=== PATIENT | female | born 1980 | race Two or more races ===

== ENCOUNTER 2021-06-29 21:22 | Emergency (ER) | payer MEDICAID, SELFPAY ==
--- NOTE | ~2021-06-29 | XR_ITS ---
EXAMINATION: XR CHEST CLINICAL INFORMATION: Shortness of breath. COMPARISON: 03/13/2014 chest radiographs. TECHNIQUE: Frontal view of the chest was obtained. FINDINGS: Patchy and linear opacities are seen predominantly in the mid and lower lung chand. The heart and mediastinal structures are unremarkable. XR/XR chest 1V IMPRESSION: Patchy opacities bilaterally suggest an infectious/inflammatory process.
[2021-06-29 21:59] VITALS: BP 122/78; PULSE 102; RESP 16; TEMP 36.1; O2SAT 94; BMI 27.4
[2021-06-29 23:02] LABS: MANUAL DIFF FLAG NO
[2021-06-29 23:03] LABS: Basophils Percent Auto 0.2 % (0-2); Hematocrit 42.2 % (37-47); Imm Gran Abs Auto 0.02 X10*3/uL (0.00-0.03); Imm Gran Pct Auto 0.3 % (0.0-0.4); Lymphocytes Absolute Auto 0.7 X10*3/uL (1.2-4.9); Lymphocytes Percent Auto 11.3 % (20-40); Mean Corpuscular HGB Conc 30.8 g/dl (31.0-35.0); Mean Corpuscular Hemoglobin 23.5 pg (27.0-33.0); Mean Corpuscular Volume 76.3 fL (80-98); Mean Platelet Volume 9.8 fL (9.4-12.3); Monocytes Absolute Auto 0.3 X10*3/uL (0.1-1.2); Monocytes Percent Auto 5.2 % (2-11); Neutrophils Absolute Auto 5.1 X10*3/uL (2.0-8.3); Platelet Count 202 X10*3/uL (160-400); Red Blood Count 5.53 X10*6/uL (4.20-5.50); Red Cell Distribution Width 21.9 % (11.0-16.0); White Blood Count 6.1 X10*3/uL (4.8-10.8)
[2021-06-29 23:22] LABS: Anion Gap 16 (12-20); B Type Natriuretic Peptide < 10 pg/mL (<100); Blood Urea Nitrogen 12 mg/dL (9-16); Calcium 8.4 mg/dL (8.4-10.2); Carbon Dioxide 24 mmol/L (22-29); Chloride 98 mmol/L (96-108); Creatinine Clr Calc Pharmacy 91.5; Estimated Glomerular Filt Rate > 60; Glucose Random 187 mg/dL (60-115); Potassium 3.9 mmol/L (3.3-5.1); Sodium 134 mmol/L (135-145); Troponin-I High Sensitivity < 3.5 ng/L (<3.5-17.0)
== END 2021-06-29 23:36 ==
DX: U07.1 COVID-19 (principal); R53.1 Weakness; R06.02 Shortness of breath; Z79.899 Other long term (current) drug therapy
CPT/HCPCS: 36415; 71045; 80048; 83880; 84484; 85025; 99282; 99283

== ENCOUNTER 2021-06-30 17:28 | Inpatient (IN) | payer MEDICAID, OTHER, SELFPAY ==
--- NOTE | ~2021-06-30 | XR_ITS ---
EXAMINATION: XR CHEST CLINICAL INFORMATION: Worsening oxygenation. Covid infection. COMPARISON: Previous chest x-rays most recent 07/17/2021 TECHNIQUE: Frontal view of the chest was obtained. FINDINGS: The cardiac and mediastinal contours are stable. There is an endotracheal tube with tip 4.2 cm above the hany. There is a right jugular line with tip projecting over the SVC. There is a nasogastric tube that projects over the stomach. There is bilateral diffuse fine airspace disease suggestive of pneumonitis. This does not appear appreciably changed from most recent exam 07/17/2021. There is no pleural effusion or pneumothorax. Bony structures are unremarkable. XR/XR chest 1V IMPRESSION: Satisfactory position of support line and tubes. Diffuse fine bilateral airspace disease suggestive of pneumonitis. Similar to
--- NOTE | ~2021-06-30 | XR_ITS ---
EXAMINATION: XR CHEST CLINICAL INFORMATION: Covid. Hypoxemia. COMPARISON: 07/13/2021 TECHNIQUE: Frontal view of the chest was obtained. FINDINGS: Cardiac leads overlie the chest. Lung volumes are low. Hazy opacity throughout both lungs. No significant pleural effusion. No pneumothorax. The cardiomediastinal silhouette is unchanged. XR/XR chest 1V IMPRESSION: Similar appearance of hazy opacity throughout both lungs.
--- NOTE | ~2021-06-30 | XR_ITS ---
EXAMINATION: XR CHEST CLINICAL INFORMATION: Dyspnea. COMPARISON: Chest 07/06/2021 TECHNIQUE: Frontal view of the chest was obtained. FINDINGS: The lungs are hypoexpanded with bilateral patchy airspace opacities similar to previous study. No pneumothorax or pleural effusion. The heart size and pulmonary vascularity is normal. No gross bony abnormality seen. XR/XR chest 1V IMPRESSION: Bilateral airspace opacity/infiltrates, stable. Lungs are hypoexpanded.
--- NOTE | ~2021-06-30 | CT_ITS ---
EXAMINATION: CT ANGIOGRAM OF THE CHEST WITH AND WITHOUT CONTRAST (CT PULMONARY ANGIOGRAM FOR PE) CLINICAL INFORMATION: Reason for Exam dyspnea, tachycardia COMPARISON: 06/30/2021 TECHNIQUE: Prior to contrast administration, noncontrast localization images were obtained. Subsequently, multidetector volumetric imaging was performed from the thoracic inlet to below the diaphragms following the administration of 80 mL Omnipaque 350 intravenous contrast. No contrast reaction reported Sagittal, coronal, and MIP oblique sagittal reformatted images were obtained on the CT workstation, uploaded to PACS, and reviewed. This CT examination was performed using dose optimization techniques as appropriate, variously including the following: *Automated exposure control *Adjustment of mA and/or kV according to patient size (this includes techniques or standardized protocols for targeted exams where dose is matched to indication/reason for exam; i.e. extremities or head) *Use of iterative reconstruction technique Total exam dose-length product 161 mGy-cm FINDINGS: QUALITY OF STUDY/CONTRAST BOLUS: Satisfactory. PULMONARY ARTERIES: No central or segmental pulmonary emboli. THORACIC AORTA: No aneurysm or dissection. LUNG: Worsening bilateral patchy and geographic groundglass opacities, with increasing coalescence within the dependent lower lobes bilaterally. PLEURA: No pleural effusion or pneumothorax. MEDIASTINUM: Mild cardiomegaly. No pericardial effusion. No evidence of septal bowing or right heart strain. No reflux of contrast into the hepatic veins to suggest elevated right heart pressures. New pneumomediastinum CHEST WALL/AXILLA: No axillary or internal mammary lymphadenopathy. Bilateral breast masses redemonstrated measuring 2.3 cm left 0.6 cm in the right, both of which appear to contain biopsy clips. OSSEOUS STRUCTURES: No acute or suspicious osseous abnormality. UPPER ABDOMEN: Hepatic steatosis. CT/CT angio chest PE protocol IMPRESSION: * No pulmonary embolism. * Worsening bilateral airspace disease compatible with COVID pneumonitis with increasingly coalescent opacity within the dependent lower lobes bilaterally. * New moderate pneumomediastinum. * Hepatic steatosis. VTE: negative This critical result was discussed with Dr Smith at 07/08/2021 4:52 PM and it was ascertained that the content and urgency of the report was understood at the time of direct communication.
--- NOTE | ~2021-06-30 | XR_ITS ---
EXAMINATION: XR CHEST CLINICAL INFORMATION: Dyspnea COMPARISON: July 25, 2021 and July 20, 2021 TECHNIQUE: AP portable view of the chest was obtained. FINDINGS: There is an increase in diffuse interstitial lung disease seen bilaterally which may be on basis of infectious/inflammatory process or pulmonary edema of cardiogenic or noncardiogenic etiology. No pneumothorax identified. No significant pleural effusion. Heart normal size. Patient has been extubated since previous study and enteric catheter removed. XR/XR chest 1V IMPRESSION: Worsening diffuse interstitial lung disease which may be infectious/inflammatory in nature or related to pulmonary edema of cardiogenic or noncardiogenic etiology.
--- NOTE | ~2021-06-30 | CT_ITS ---
EXAMINATION: CT ANGIOGRAM OF THE CHEST WITH AND WITHOUT CONTRAST (CT PULMONARY ANGIOGRAM FOR PE) CLINICAL INFORMATION: Reason for Exam pleuritic chest pain and COVID positive COMPARISON: Chest x-ray 06/30/2021 TECHNIQUE: Prior to contrast administration, noncontrast localization images were obtained. Subsequently, multidetector volumetric imaging was performed from the thoracic inlet to below the diaphragms following the administration of 65 mL Omnipaque 350 intravenous contrast. No contrast reaction reported Sagittal, coronal, and MIP oblique sagittal reformatted images were obtained on the CT workstation, uploaded to PACS, and reviewed. This CT examination was performed using dose optimization techniques as appropriate, variously including the following: *Automated exposure control *Adjustment of mA and/or kV according to patient size (this includes techniques or standardized protocols for targeted exams where dose is matched to indication/reason for exam; i.e. extremities or head) *Use of iterative reconstruction technique Total exam dose-length product 271 mGy-cm FINDINGS: QUALITY OF STUDY/CONTRAST BOLUS: Suboptimal primarily due to respiratory motion artifact. PULMONARY ARTERIES: No central pulmonary embolus identified. Inadequate assessment of the segmental and subsegmental vasculature due to patient motion artifact, and therefore emboli at these levels cannot be entirely excluded. THORACIC AORTA: No aneurysm or dissection. LUNG: There are extensive regions of predominantly groundglass consolidation bilaterally, in keeping with history of patient's Covid positive status. PLEURA: No pleural effusion or pneumothorax. MEDIASTINUM: The visualized thyroid gland is unremarkable. There are subcentimeter mediastinal lymph nodes within the range of normal variation. Cardiac size is within normal limits; no pericardial effusion. No evidence of septal bowing or right heart strain. CHEST WALL/AXILLA: Bilateral breast masses noted, measuring approximately 2.3 cm on the left and 1.6 cm on the right. OSSEOUS STRUCTURES: No acute or suspicious osseous abnormality. UPPER ABDOMEN: Patient is status post cholecystectomy. No reflux of contrast into the hepatic veins to suggest elevated right heart pressures. CT/CT angio chest PE protocol IMPRESSION: 1. No central pulmonary embolus identified. Incomplete assessment of the distal vessels due to respiratory motion artifact, and therefore distal emboli cannot be entirely excluded. 2. Extensive bilateral groundglass opacities consistent with Covid pneumonia. 3. Bilateral breast masses, for which correlation with recent or follow-up breast imaging is recommended. VTE: negative
--- NOTE | ~2021-06-30 | XR_ITS ---
EXAMINATION: XR CHEST CLINICAL INFORMATION: Covid. Pneumonia. COMPARISON: 07/16/2021 TECHNIQUE: Frontal view of the chest was obtained. FINDINGS: Endotracheal tube terminates 3.5 cm above the hany. Enteric tube extends into the stomach. Cardiac leads overlie the chest. Lung volumes are low. Increased hazy opacities throughout both lungs. No pleural effusion or pneumothorax. The cardiomediastinal silhouette is unchanged. XR/XR chest 1V IMPRESSION: Endotracheal tube terminates 3.5 cm above the hany. Worsening bilateral opacities.
--- NOTE | ~2021-06-30 | XR_ITS ---
EXAMINATION: XR CHEST CLINICAL INFORMATION: Shortness of breath COMPARISON: Chest x-ray June 29, 2021 TECHNIQUE: Frontal portable view of the chest was obtained. 1840 hours FINDINGS: Multifocal bilateral airspace opacities are persistent and unchanged since chest x-ray June 29, 2021. Findings suggest atypical pneumonia such as Covid positive pneumonia. Clinically correlate. No pleural effusion or pneumothorax. Heart size is normal. Cardiac and mediastinal contours are normal. XR/XR chest 1V IMPRESSION: Multifocal bilateral airspace disease similar prior chest x-ray June 29, 2021. Imaging features can be seen with COVID-19 pneumonia. Although these features are nonspecific and can be occur with a variety of infectious and noninfectious processes.
--- NOTE | ~2021-06-30 | XR_ITS ---
EXAMINATION: XR CHEST CLINICAL INFORMATION: Line placement and endotracheal tube placement COMPARISON: 07/15/2021 TECHNIQUE: Frontal view of the chest was obtained. FINDINGS: Endotracheal tube terminates at the level of the hany. Right internal jugular central venous catheter terminates over the right atrium, approximately 3 cm beyond the cavoatrial junction. Cardiac leads overlie the chest. Low lung volumes. Hazy appearance throughout both lungs, similar to prior. No pleural effusion. No pneumothorax. The cardiomediastinal silhouette is within normal limits. XR/XR chest 1V IMPRESSION: Endotracheal tube terminates at the level of the hany. Recommend retraction. Right internal jugular central venous catheter terminates over the right atrium. This can also be retracted. Persistent hazy opacity throughout both lungs, similar to prior. This critical result was discussed with Matt Lombardi NP by telephone at 07/15/2021 9:56 PM and it was ascertained that the content and urgency of the report was understood at the time of direct communication.
--- NOTE | ~2021-06-30 | XR_ITS ---
EXAMINATION: CR CHEST CLINICAL INFORMATION: Hypoxia. COMPARISON: Chest x-ray dated 07/29/2021. TECHNIQUE: Frontal view of the chest was obtained. FINDINGS: Multiple EKG leads overlie the chest. Endotracheal tube is 3.3 cm above the hany. Enteric tube extends into the abdomen with tip projected over the expected location of the gastric antrum. Left jugular central venous line is in the superior right atrium. Cardiomediastinal silhouette is within normal limits in size. Low lung volumes are seen with some diffuse reticular opacities in the lungs, right greater than left, with relative sparing of the left lung apex. There may be associated trace right pleural effusion. No pneumothorax is seen. S-shaped thoracolumbar scoliosis noted. Right upper quadrant ed from prior cholecystectomy seen. XR/XR chest 1V IMPRESSION: 1. No significant change in positioning of lines and tubes. 2. Persistent diffuse bilateral opacities, slightly more pronounced on the right side than the left. There may be an associated trace right pleural effusion.
--- NOTE | ~2021-06-30 | XR_ITS ---
EXAMINATION: XR CHEST CLINICAL INFORMATION: Pneumomediastinum. COMPARISON: Chest CTA and chest radiograph both dated 07/08/2021. TECHNIQUE: Frontal view of the chest was obtained. FINDINGS: Persistent diffuse airspace opacities are again seen bilaterally with more uniform appearance. There has been mild interval decrease in pneumonia mediastinum. The heart and mediastinal structures are unremarkable. XR/XR chest 1V IMPRESSION: 1. Persistent diffuse airspace opacities with more uniform appearance. 2. Mild interval decrease in pneumomediastinum.
--- NOTE | ~2021-06-30 | XR_ITS ---
EXAMINATION: XR CHEST CLINICAL INFORMATION: Increase shortness of breath COMPARISON: 06/30/2021 TECHNIQUE: Frontal view of the chest was obtained. FINDINGS: Cardiac leads overlie the chest. Lung volumes are low. Patchy bilateral airspace opacities are again noted, appearing increased from prior radiograph. No pneumothorax or pleural effusion. The cardiomediastinal silhouette is within normal limits. XR/XR chest 1V IMPRESSION: Increased bilateral airspace opacities. Commonly reported imaging features of (COVID-19 or viral) pneumonia are present. Other processes such as influenza pneumonia and organizing pneumonia, as can be seen with drug toxicity and connective tissue disease, can cause a similar imaging pattern.
--- NOTE | ~2021-06-30 | XR_ITS ---
EXAMINATION: XR CHEST CLINICAL INFORMATION: Status post intubation COMPARISON: Earlier on same day and July 25, 2021 TECHNIQUE: AP portable view of the chest was obtained. FINDINGS: Since previous study a right sided central venous catheter is seen to have been placed with tip in the superior right atrium. Lung apices are not included on image but no definite pneumothorax is appreciated. Endotracheal tube has been placed with tip approximately 2 cm above the hany. Enteric catheter has been placed with its tip overlying the region of the gastric antrum. There is again noted to be diffuse groundglass opacity about both lungs without significant change. There appears be either calcific tendinitis or bone island within the humeral head on the left. Heart normal size. XR/XR chest 1V IMPRESSION: No significant change in diffuse bilateral disease. Interval placement of endotracheal tube, enteric tube, and central venous catheter as described.
--- NOTE | ~2021-06-30 | CT_ITS ---
EXAMINATION: CT ANGIOGRAM OF THE CHEST WITH AND WITHOUT CONTRAST (CT PULMONARY ANGIOGRAM FOR PE) CLINICAL INFORMATION: Tachycardia COMPARISON: 07/31/[address] 07/08/2021 TECHNIQUE: Prior to contrast administration, noncontrast localization images were obtained. Subsequently, multidetector volumetric imaging was performed from the thoracic inlet to below the diaphragms following the administration of 65 mL Omnipaque 350 intravenous contrast. No contrast reaction reported Sagittal, coronal, and MIP oblique sagittal reformatted images were obtained on the CT workstation, uploaded to PACS, and reviewed. This CT examination was performed using dose optimization techniques as appropriate, variously including the following: *Automated exposure control *Adjustment of mA and/or kV according to patient size (this includes techniques or standardized protocols for targeted exams where dose is matched to indication/reason for exam; i.e. extremities or head) *Use of iterative reconstruction technique Total exam dose-length product 107 mGy-cm FINDINGS: QUALITY OF STUDY/CONTRAST BOLUS: Satisfactory. PULMONARY ARTERIES: No central or segmental pulmonary emboli. THORACIC AORTA: No aneurysm or dissection. LUNG: The central airways are patent. Diffuse groundglass and consolidative opacification throughout both lungs with patchy appearance. This includes area of cystic change in the right upper lobe along the fissure centered in an area of consolidation. When compared to 07/08/2021, this appearance has evolved. PLEURA: No pleural effusion or pneumothorax. MEDIASTINUM: Normal heart size. Left internal jugular central venous catheter terminates near the cavoatrial junction. No pericardial effusion. No hilar or mediastinal lymphadenopathy. No evidence of septal bowing or right heart strain. CHEST WALL/AXILLA: No axillary or internal mammary lymphadenopathy. OSSEOUS STRUCTURES: No acute or suspicious osseous abnormality. UPPER ABDOMEN: Unremarkable. No reflux of contrast into the hepatic veins to suggest elevated right heart pressures. CT/CT angio chest PE protocol IMPRESSION: 1. No pulmonary embolism. 2. Evolution of the abnormal appearance of the lungs. There are now increased areas of consolidation, some with central cystic change. Persistent diffuse patchy groundglass opacification. VTE: negative
--- NOTE | ~2021-06-30 | XR_ITS ---
EXAMINATION: XR CHEST CLINICAL INFORMATION: Hypoxia COMPARISON: 07/10/2021 TECHNIQUE: Frontal view of the chest was obtained. FINDINGS: Cardiac leads overlie the chest. Lung volumes are low. Hazy opacity throughout both lungs is similar to prior. Small pleural effusions. No pneumothorax. Cardiomediastinal silhouette is unchanged. XR/XR chest 1V IMPRESSION: No significant change from prior. Small pleural effusions. Diffuse bilateral airspace opacities.
--- NOTE | ~2021-06-30 | XR_ITS ---
EXAMINATION: XR CHEST CLINICAL INFORMATION: Covid. Hypoxia. COMPARISON: 07/15/2021 TECHNIQUE: Frontal view of the chest was obtained. FINDINGS: Endotracheal tube terminates 4.5 cm above the hany. Enteric tube extends into the stomach. Right internal jugular central venous catheter terminates over the right atrium. The lungs are well expanded. Hazy opacity again seen throughout both lungs, similar to previous. No pleural effusion or pneumothorax. The cardiomediastinal silhouette is within normal limits. Right upper quadrant surgical clips noted. XR/XR chest 1V IMPRESSION: Endotracheal tube terminating 4.5 cm above the hany. Similar appearance of the lungs with diffuse bilateral opacities.
--- NOTE | ~2021-06-30 | XR_ITS ---
EXAMINATION: XR CHEST CLINICAL INFORMATION: Staph pneumonia. COMPARISON: Chest 07/20/2021 TECHNIQUE: Frontal view of the chest was obtained. FINDINGS: Position of right jugular central line is in mid SVC. The endotracheal tube tip is 4.5 cm above the hany. Enteric tube is in the stomach. The lungs are hypoexpanded with bilateral fine interstitial prominence likely pneumonitis. No consolidation, effusion or pneumothorax seen. The heart size and pulmonary vascularity is normal. No gross bony abnormality seen. XR/XR chest 1V IMPRESSION: Hypoexpanded lungs with bilateral fine interstitial prominence similar to previous study. Support lines and catheters are stable and unchanged to 07/20/2021.
[2021-06-30 18:31] VITALS: BP 108/74; PULSE 118; RESP 36; TEMP 36.7; O2SAT 93; BMI 28.3
[2021-06-30 20:57] VITALS: BP 114/82; PULSE 117; RESP 22; TEMP 37.6; O2SAT 96
--- NOTE | 2021-06-30 21:06 | ED_ITS ---
HPI - SOB/Dyspnea General Chief Complaint: Dyspnea Stated Complaint: Difficulty breathing/Covid + Time Seen by Provider: 06/30/21 20:43 Source: patient Mode of arrival: ambulatory Limitations: no limitations History of Present Illness HPI Narrative: Patient was here last night with COVID, she had nausea and vomiting. Patient is day 9 of her illness. Not eating not taking drinking liquids. MD elicited complaint: shortness of breath and cough Onset (ago): day(s) Context: recent illness Severity: moderate Associated symptoms: chest pain, pain with inspiration and fever Related Data Allergies Allergy/AdvReac Type Severity Reaction Status Date / Time acetaminophen [Percocet] AdvReac Unknown vomiting Verified 06/30/21 18:31 oxycodone [Percocet] AdvReac Unknown vomiting Verified 06/30/21 18:31 Review of Systems Constitutional: Constitutional: Reports no additional constitutional complaints Eyes: Eyes: Reports no additional eye complaints ENT: Denies dizziness Cardiovascular: Cardiovascular: Reports no additional cardiovascular complaints Respiratory: Respiratory: Reports as per HPI Gastrointestinal: Gastrointestinal: Reports no additional gastrointestinal complaints Genitourinary: Genitourinary: Reports no additional female genitourinary complaints Musculoskeletal: Musculoskeletal: Reports no additional musculoskeletal complaints Integumentary/Breasts: Skin/Breast: Denies rash Neurologic: Reports system reviewed and no additional complaints, except as documented, Denies dizziness and Denies Sensory deficit (Neuro) Psychiatric: Psychiatric: Denies anxiety PMF Past Medical History Surgical History H/O breast biopsy History of laparoscopic cholecystectomy History of nephrolithiasis Family History Family History (Updated 08/03/20 @ 10:17 by Nadja Verma [facility]) Father Diabetes Hypertension Mother Diabetes Hypertension Maternal Grandfather Throat cancer Brother High cholesterol Maternal Grandmother Hypertension Social History Social History Advance Directives: No Patient : No Physical Exam Vital Signs: Vital Signs: Last Vital Signs Temp 99.6 F 06/30/21 20:57 Pulse 113 H 06/30/21 23:50 Resp 16 06/30/21 23:50 BP 117/84 06/30/21 23:50 Pulse Ox 99 06/30/21 23:50 Body Mass Index 28.3 Const: Other: Patinet appearing uncomfortable moaning Nutritional Appearance: average body habitus Orientation/consciousness: oriented to person and patient oriented x3 Limitations: no limitations HENMT: Head: Yes normal to inspection Ears: external ears normal General nose exam: Normal external nose present Mouth: Normal oral and palatal mucosa present and oropharynx normal Throat: Yes posterior oropharynx normal Eyes: General: appearance normal, both eyes and all related structures Neck: Other: supple Neck: Yes normal visual inspection Chest: Chest palpation & inspection: normal inspection of the chest Resp: Auscultation: clear to auscultation bilaterally Cardio: Jugular venous distension: no JVD Rate: regular rate Rhythm: regular rhythm Heart sounds: S1 normal heart sound present and S2 normal heart sound present GI: Inspection: Yes normal to inspection Palpation (GI): Soft to palpation, nontender and No hepatosplenomegaly present Auscultation: normal bowel sounds : General: Yes no CVA tenderness Back/Spine/Pelvis: Back: no CVA tenderness Skin: General skin exam: no rashes or lesions noted Neuro: General: oriented to person and patient oriented x3 Cranial nerves: Yes CN's II-XII intact bilaterally Motor exam (neuro): 5/5 motor strength present throughout Sensory Exam: No Sensory deficit (Neuro) Extrem: General: Yes normal to inspection Psych: Appearance: grossly normal MDM - SOB/Dyspnea Lab Data Result diagrams: 06/30/21 22:03 06/30/21 22:03 Labs: Lab Results 06/30/21 06/30/21 06/30/21 Range/Units 22:03 22:03 22:03 WBC 5.6 (4.8-10.8) X10*3/uL RBC 5.67 H (4.20-5.50) X10*6/uL Hgb 13.4 (12.0-16.0) g/dl Hct 43.2 (37-47) % MCV 76.2 L (80-98) fL MCH 23.6 L (27.0-33.0) pg MCHC 31.0 (31.0-35.0) g/dl RDW 22.1 H (11.0-16.0) % Plt Count 190 (160-400) X10*3/uL MPV 9.8 (9.4-12.3) fL Immature Gran % (Auto) 0.4 (0.0-0.4) % Neut % (Auto) 83.0 H (45-73) % Lymph % (Auto) 11.1 L (20-40) % [place] % (Auto) 5.3 (2-11) % Eos % (Auto) 0.0 (0-4) % Baso % (Auto) 0.2 (0-2) % Lymph # (Auto) 0.6 L (1.2-4.9) X10*3/uL [place] # (Auto) 0.3 (0.1-1.2) X10*3/uL Eos # (Auto) 0.0 (0.0-0.4) X10*3/uL Baso # (Auto) 0.0 (0.0-0.2) X10*3/uL Abs Immat Gran (auto) 0.02 (0.00-0.03) X10*3/uL Absolute Neuts (auto) 4.7 (2.0-8.3) X10*3/uL Absolute Nucleated RBC 0.000 (0.0-0.012) X10*3/uL Nucleated RBC % (auto) 0.0 (0.0-0.2) /100WBC Sodium 135 (135-145) mmol/L Potassium 4.1 (3.3-5.1) mmol/L Chloride 100 (96-108) mmol/L Carbon Dioxide 23 (22-29) mmol/L Anion Gap 16 (12-20) BUN 14 (9-16) mg/dL Creatinine 0.84 (0.5-1.4) mg/dL Estim Creat Clear Calc 89.5 Estimated GFR > 60 Random Glucose 159 H (60-115) mg/dL Calcium 8.5 (8.4-10.2) mg/dL Troponin I High Sens < 3.5 (<3.5-17.0) ng/L Imaging Data Chest x-ray: Radiologist's impression: IMPRESSION: Multifocal bilateral airspace disease similar prior chest x-ray June 29, 2021. Imaging features can be seen with COVID-19 pneumonia. Although these features are nonspecific and can be occur with a variety of infectious and noninfectious processes. ? CT scan - chest: Radiologist's impression: IMPRESSION: 1.? No central pulmonary embolus identified. Incomplete assessment of the distal vessels due to respiratory motion artifact, and therefore distal emboli cannot be entirely excluded. 2.? Extensive bilateral groundglass opacities consistent with Covid pneumonia. 3.? Bilateral breast masses, for which correlation with recent or follow-up breast imaging is recommended. ? ECG Data Attestation: I personally reviewed and interpreted this ECG as follows: Interpretation: sinus tachycardia rate of 123, no st or twave changes Discharge Plan Discharge Clinical Impression: COVID-19, Hypoxia Patient Disposition: Admitted As Inpatient
--- NOTE | 2021-06-30 21:32 | ECG_ITS ---
Test Reason : SOB Blood Pressure : / mmHG Vent. Rate : 123 BPM Atrial Rate : 123 BPM P-R Int : 134 ms QRS Dur : 080 ms QT Int : 292 ms P-R-T Axes : 042 -18 -09 degrees QTc Int : 418 ms Sinus tachycardia Minimal voltage criteria for LVH, may be normal variant Nonspecific T wave abnormality Abnormal ECG No previous ECGs available Referred By: Epifanio Child Electronically Signed By:IVET BENITEZ
[2021-06-30 22:08] LABS: MANUAL DIFF FLAG NO
[2021-06-30 22:09] LABS: Basophils Percent Auto 0.2 % (0-2); Hematocrit 43.2 % (37-47); Hemoglobin 13.4 g/dl (12.0-16.0); Imm Gran Abs Auto 0.02 X10*3/uL (0.00-0.03); Imm Gran Pct Auto 0.4 % (0.0-0.4); Lymphocytes Absolute Auto 0.6 X10*3/uL (1.2-4.9); Lymphocytes Percent Auto 11.1 % (20-40); Mean Corpuscular Hemoglobin 23.6 pg (27.0-33.0); Mean Corpuscular Volume 76.2 fL (80-98); Mean Platelet Volume 9.8 fL (9.4-12.3); Monocytes Absolute Auto 0.3 X10*3/uL (0.1-1.2); Monocytes Percent Auto 5.3 % (2-11); Neutrophils Absolute Auto 4.7 X10*3/uL (2.0-8.3); Platelet Count 190 X10*3/uL (160-400); Red Blood Count 5.67 X10*6/uL (4.20-5.50); Red Cell Distribution Width 22.1 % (11.0-16.0); White Blood Count 5.6 X10*3/uL (4.8-10.8)
[2021-06-30] MEDS: 0.9 % Sodium Chloride 2,313.33 ML 2313.33 ML IV (22:10)
[2021-06-30 22:24] LABS: Anion Gap 16 (12-20); Blood Urea Nitrogen 14 mg/dL (9-16); Calcium 8.5 mg/dL (8.4-10.2); Carbon Dioxide 23 mmol/L (22-29); Chloride 100 mmol/L (96-108); Creatinine Clr Calc Pharmacy 89.5; Estimated Glomerular Filt Rate > 60; Glucose Random 159 mg/dL (60-115); Potassium 4.1 mmol/L (3.3-5.1); Sodium 135 mmol/L (135-145)
[2021-06-30 22:30] LABS: Troponin-I High Sensitivity < 3.5 ng/L (<3.5-17.0)
[2021-06-30 23:50] VITALS: BP 117/84; PULSE 113; RESP 16; O2SAT 99
[2021-06-30] MEDS: iohexoL 350 MG/ML 100 ML INFUS..BTL 65 ML IV (23:53)
[2021-07-01] VITALS (8 sets, daily range): BP systolic 99–116; BP diastolic 66–71; PULSE 73–99; RESP 26–44; TEMP 36.5–37.2; O2SAT 92–97
--- NOTE | 2021-07-01 00:44 | PC.NURSE ---
Addendum entered by Nicole Larson RN 07/01/21 00:54: MD Child notified Original Note: pt O2 sat decreased to 87% on RA while standing at bedside; after returning to bed, sat further decreased to 78% prior to replacing O2 at 6L. Returned to 95% on 6L NC
--- NOTE | 2021-07-01 01:07 | P.HPHOSP_ITS ---
History of Present Illness Date of Service: 07/01/21 Chief Complaint: Shortness of breath, cough 41-year-old female with no significant past medical history, on vaccinated against COVID-19 presents to the hospital with complaints of shortness of breath, cough, headache, loss of appetite, nausea vomiting for the past 1 week. Patient was diagnosed with COVID on 06/26 but her symptoms have persisted and worsened over the past few days. Patient's is at bedside who is helping with interpretation and reports that ever but in the family including the children have contracted COVID and they are all on vaccinated. Patient denies any chest pain, no abdominal pain, no urinary symptoms and no lower extremity edema. No numbness tingling or weakness. All other review of system negative except as mentioned On arrival to the ED her vitals are significant for temp of 98.0?, heart rate of 118, respiratory rate of 36, blood pressure of 108/74, satting 93% on room air but did drop to high 80s and now is on 6 L of oxygen on nasal cannula Labs are significant for WBC count of 5.6, otherwise unremarkable. Chest CT angiogram shows no central pulmonary embolus identified, incomplete assessment of the distal vessels due to respiratory motion artifact. Extensive bilateral ground-glass opacities consistent with COVID-19 pneumonia and bilateral breast masses Patient will be admitted for further management Review of Systems Review of Systems: Yes all other systems are reviewed and are negative [facility] Medical History (Updated 07/01/21 @ 06:37 by Ivan Villegas MD) Patient denies significant medical history Family History Father Diabetes Hypertension Mother Diabetes Hypertension Maternal Grandfather Throat cancer Brother High cholesterol Maternal Grandmother Hypertension Pertinent family history: No pertinent family history Surgical History H/O breast biopsy History of laparoscopic cholecystectomy History of nephrolithiasis Social History Advance Directives: No Patient : No Meds Allergies Allergy/AdvReac Type Severity Reaction Status Date / Time acetaminophen [Percocet] AdvReac Unknown vomiting Verified 06/30/21 18:31 oxycodone [Percocet] AdvReac Unknown vomiting Verified 06/30/21 18:31 Active Medications: Current Medications Pharmacy Consult (Consult Rx Perform Med Rec) 1 each MISCELLANE ONCE PRN PRN Reason: Consult order Physical Exam Vital Signs and Narrative: Vital Signs: Last Vital Signs Temp 99.6 F 06/30/21 20:57 Pulse 113 H 06/30/21 23:50 Resp 16 06/30/21 23:50 BP 117/84 06/30/21 23:50 Pulse Ox 99 06/30/21 23:50 Body Mass Index 28.3 Const: Other: Ill-appearing General: cooperative Orientation/consciousness: patient oriented x3 Eyes: General: appearance normal, both eyes and all related structures Pupils: Equal, round and reactive pupils present Chest: Other: Crackles bilaterally Resp: Effort & Inspection: normal respiratory effort Cardio: Rate: regular rate Rhythm: regular rhythm GI: Palpation (GI): Soft to palpation Auscultation: normal bowel sounds Skin: General skin exam: no rashes or lesions noted Neuro: General: patient oriented x3 Cranial nerves: Yes Equal, round and reactive pupils present Cognition (Neuro): normal cognition Extrem: General: Yes normal to inspection and Yes no pedal edema Results Labs CBC and Chem 7: 07/01/21 05:33 07/01/21 05:33 Labs: Laboratory Results - last 24 hr 06/30/21 06/30/21 06/30/21 22:03 22:03 22:03 MCV 76.2 L MCH 23.6 L MCHC 31.0 RDW 22.1 H Plt Count 190 MPV 9.8 Immature Gran % (Auto) 0.4 Neut % (Auto) 83.0 H Lymph % (Auto) 11.1 L [place] % (Auto) 5.3 Eos % (Auto) 0.0 Baso % (Auto) 0.2 Lymph # (Auto) 0.6 L [place] # (Auto) 0.3 Eos # (Auto) 0.0 Baso # (Auto) 0.0 Abs Immat Gran (auto) 0.02 Absolute Neuts (auto) 4.7 Absolute Nucleated RBC 0.000 Nucleated RBC % (auto) 0.0 Anion Gap 16 Estim Creat Clear Calc 89.5 Estimated GFR > 60 Random Glucose 159 H Calcium 8.5 Troponin I High Sens < 3.5 ECG Interpretation: Sinus tachycardia with nonspecific T-wave abnormality Imaging Radiologist's Impressions: Impressions Chest X-Ray 06/30/21 18:43 IMPRESSION: Multifocal bilateral airspace disease similar prior chest x-ray June 29, 2021. Imaging features can be seen with COVID-19 pneumonia. Although these features are nonspecific and can be occur with a variety of infectious and noninfectious processes. Chest CTA 06/30/21 21:33 IMPRESSION: 1. No central pulmonary embolus identified. Incomplete assessment of the distal vessels due to respiratory motion artifact, and therefore distal emboli cannot be entirely excluded. 2. Extensive bilateral groundglass opacities consistent with Covid pneumonia. 3. Bilateral breast masses, for which correlation with recent or follow-up breast imaging is recommended. VTE: negative Assessment and Plan (1) Pneumonia due to COVID-19 virus: Status: Acute (2) Acute respiratory failure with hypoxia: Status: Acute (3) Breast mass: Status: Acute 41-year-old female with no significant past medical history presents to the hospital with worsening symptoms of COVID-19 infection # COVID-19 pneumonia - has hypoxia, no leukocytosis, afebrile this time - who was diagnosed on 06/26 - will start on dexamethasone - O2 supplement - monitor respiratory status # acute hypoxic respiratory failure - secondary to COVID-19 pneumonia - O2 supplement - monitor # breast mass - a seen on CT scan of the chest - patient will need follow-up outpatient with her primary care for further evaluation and testing DVT prophylaxis: Heparin subQ Quality Stroke Does the patient have a stroke diagnosis?: No VTE Prior VTE?: No VTE Risk Level:: Medical - moderate - high VTE Device Contraindication: Treatment Not Indicated VTE Drug Contraindication: N/A - Med Ordered
[2021-07-01] MEDS: dexAMETHasone sod phosphate 4 MG/ML VIAL 6 MG IVPUSH ×2 (02:06→08:24)
--- NOTE | 2021-07-01 03:58 | PC.NURSE ---
report called to receiving RN; pt transported in stable condition w/ all belongings
[2021-07-01] MEDS: LORazepam 0.5 MG TABLET PO (04:00)
[2021-07-01 05:38] LABS: MANUAL DIFF FLAG NO
[2021-07-01 05:39] LABS: Hematocrit 36.1 % (37-47); Hemoglobin 10.9 g/dl (12.0-16.0); Imm Gran Abs Auto 0.01 X10*3/uL (0.00-0.03); Imm Gran Pct Auto 0.3 % (0.0-0.4); Lymphocytes Absolute Auto 0.3 X10*3/uL (1.2-4.9); Mean Corpuscular HGB Conc 30.2 g/dl (31.0-35.0); Mean Corpuscular Hemoglobin 23.4 pg (27.0-33.0); Mean Corpuscular Volume 77.5 fL (80-98); Mean Platelet Volume 10.3 fL (9.4-12.3); Monocytes Absolute Auto 0.1 X10*3/uL (0.1-1.2); Monocytes Percent Auto 3.1 % (2-11); Neutrophils Absolute Auto 3.5 X10*3/uL (2.0-8.3); Neutrophils Percent Auto 89.6 % (45-73); Platelet Count 154 X10*3/uL (160-400); Red Blood Count 4.66 X10*6/uL (4.20-5.50); Red Cell Distribution Width 21.7 % (11.0-16.0); White Blood Count 3.9 X10*3/uL (4.8-10.8)
[2021-07-01] MEDS: Acetaminophen 325 MG TABLET 650 MG PO (05:53)
[2021-07-01 05:57] LABS: Anion Gap 14 (12-20); Blood Urea Nitrogen 10 mg/dL (9-16); Calcium 7.6 mg/dL (8.4-10.2); Carbon Dioxide 21 mmol/L (22-29); Chloride 105 mmol/L (96-108); Estimated Glomerular Filt Rate > 60; Glucose Random 261 mg/dL (60-115); Potassium 4.5 mmol/L (3.3-5.1); Sodium 135 mmol/L (135-145)
--- NOTE | 2021-07-01 08:18 | PHA.MEDREC ---
Pharmacy Consult ? Medication Reconciliation Pharmacy has completed the medication reconciliation. Patient's Matteo reports patient only takes motrin and tylenol. Jyothi Nolasco, PharmD
[2021-07-01] MEDS: Enoxaparin Sodium 40 MG/0.4 ML SYRINGE SUBCUT (08:24)
[2021-07-01] MEDS: 0.9 % Sodium Chloride Flush 3 ML SYRINGE IVFLUSH ×3 (08:25→21:24)
--- NOTE | 2021-07-01 10:04 | MHC.CLN ---
PT WITH REPORTED POOR PO INTAKE X 1 WEEK RECOMMEND ADDING ENSURE BID TO INCREASE KCALS AND PROMOTE PO SUPPLEMENT TO PROVIDE 700KCALS, 40G PROTEIN MONITOR PO INTAKE CLOSELY
[2021-07-01] MEDS: Ascorbic Acid 500 MG TABLET PO (10:23)
[2021-07-01] MEDS: Famotidine 20 MG TABLET 40 MG PO ×2 (10:23→21:23)
[2021-07-01] MEDS: Zinc Sulfate 220 MG CAPSULE PO (10:23)
[2021-07-01] MEDS: methylPREDNISolone Sod Succ 125 MG/2 ML VIAL 80 MG IVPUSH ×2 (10:23→21:23)
--- NOTE | 2021-07-01 13:05 | MHC.CM.PN ---
Pt is C overflow with COVID: on nasal cannula: call placed to pts spouse, Omar for assistance with CM assessment: Pt resides with spouse and children aged 21 to 4 yrs. All of household is unvaccinated and COVID + but stable and recovering. 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 Her PCP was someone at [address] Pt has not sought medical care since her insurance terminated. Will refer pt to [facility] financial for assistance with insurance: asked Omar to inquire on adding pt to his policy since they are legally per him. Omar can transport home when pt is medically ready: expect pt to recover and return to home without service requirements. HCP copy requested from Omar
--- NOTE | 2021-07-01 16:49 | PM.EVENT ---
Event Note Date of Service: 07/01/21 Event Note: Chief Complaint: Shortness of breath, cough 41-year-old female with no significant past medical history, on vaccinated against COVID-19 presents to the hospital with complaints of shortness of breath, cough, headache, loss of appetite, nausea vomiting for the past 1 week.? Patient was diagnosed with COVID on 06/26 but her symptoms have persisted and worsened over the past few days.? Patient's is at bedside who is helping with interpretation and reports that ever but in the family including the children have contracted COVID and they are all on vaccinated. Patient denies any chest pain, no abdominal pain, no urinary symptoms and no lower extremity edema.? No numbness tingling or weakness.? All other review of system negative except as mentioned On arrival to the ED her vitals are significant for temp of 98.0?, heart rate of 118, respiratory rate of 36, blood pressure of 108/74, satting 93% on room air but did drop to high 80s and now is on 6 L of oxygen on nasal cannula Labs are significant for WBC count of 5.6, otherwise unremarkable. Chest CT angiogram shows no central pulmonary embolus identified, incomplete assessment of the distal vessels due to respiratory motion artifact.? Extensive bilateral ground-glass opacities consistent with COVID-19 pneumonia and bilateral breast masses a/p 41-year-old female with no significant past medical history presents to the hospital with worsening symptoms of COVID-19 infection # acute hypoxic respiratory failure due to COVID-19 pneumonia diagnosis 06/26 No acute issues, no fever, normal WBC count leukocytosis, afebrile this time Will place on high-dose IV Solu-Medrol, vitamin-C, zinc, vitamin-D, Pepcid and add cough medication Gradually wean oxygen. # breast mass seen on CT scan of the chest, will recommend outpatient follow-up with primary care physician for further test DVT prophylaxis:? Heparin subQ
[2021-07-01] MEDS: Zolpidem Tartrate 5 MG TABLET PO (23:39)
[2021-07-02] VITALS (8 sets, daily range): BP systolic 103–115; BP diastolic 64–76; PULSE 68–97; RESP 22–38; TEMP 35.6–36.1; O2SAT 89–95
--- NOTE | 2021-07-02 01:48 | PC.NURSE ---
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
--- NOTE | 2021-07-02 06:05 | PC.NURSE ---
CURRENTLY PATIENT SLEEPING...RIGHT SIDE DOWNWARD...RR 24-28...SAO2 98%...NSR HR 68-72
[2021-07-02] MEDS: 0.9 % Sodium Chloride Flush 3 ML SYRINGE IVFLUSH ×2 (07:24→15:58)
[2021-07-02] MEDS: Cholecalciferol (Vitamin D3) 25 MCG TABLET 50 MCG PO (08:56)
[2021-07-02] MEDS: Thiamine HCL 100 MG TABLET 200 MG PO ×2 (08:56→20:29)
[2021-07-02] MEDS: Aspirin Enteric Coated 81 MG TABLET.DR PO (08:57)
[2021-07-02] MEDS: Zinc Sulfate 220 MG CAPSULE PO (08:57)
[2021-07-02] MEDS: Ascorbic Acid 500 MG TABLET 1000 MG PO ×4 (08:57→20:29)
[2021-07-02] MEDS: methylPREDNISolone Sod Succ 125 MG/2 ML VIAL 80 MG IVPUSH ×2 (08:57→20:29)
[2021-07-02] MEDS: Famotidine 20 MG TABLET 40 MG PO ×2 (08:57→20:29)
[2021-07-02] MEDS: Enoxaparin Sodium 40 MG/0.4 ML SYRINGE SUBCUT (08:57)
--- NOTE | 2021-07-02 10:30 | P.PNIM_ITS ---
Subjective Subjective Date of Service: 07/02/21 Interval History: Being followed for hypoxic respiratory failure due to COVID infection, events from overnight noted patient oxygenation dropped, she became tachypneic, with increased work of breathing therefore patient initially placed on 100% non-rebreather mask saturation improved but she since patient remained short of breath and was dropping oxygen when mask was off there she was placed on high-flow nasal cannula At present patient complaining of persistent mild shortness of breath, cough and remained tachypneic, patient diagnosed to have COVID on 06/26 and symptoms have been ongoing for last 9-10 days. Review of Systems General no headache, no dizziness no fever chills. CVS no chest pain, no palpitation. Respiratory shortness of breath, cough Gastrointestinal decreased appetite, mild nausea Physical Exam Vital Signs: Vital Signs: Last Vital Signs Temp 96.0 F L 07/02/21 07:38 Pulse 79 07/02/21 07:38 Resp 26 H 07/02/21 07:38 BP 107/69 07/02/21 07:38 Pulse Ox 93 07/02/21 07:38 Body Mass Index 28.3 General no acute distress. Neck no JVD. CVS regular rate rhythm, Respiratory tachypneic, bilateral rhonchi, diminished breath sounds Gastrointestinal abdomen soft, nontender, bowel sounds audible Extremities no edema. Neuro nonfocal , speech clear. Skin no rash Psych appropriate affect Objective Data Active Medications Acetaminophen (Acetaminophen 325 Mg Tablet) 650 mg PO Q6H PRN PRN Reason: Pain, Mild (Pain Scale 1-3) Last Admin: 07/01/21 05:53 Dose: 650 mg Documented by: JERILYN Ascorbic Acid (Ascorbic Acid 500 Mg Tablet) 1,000 mg PO QID [facility] Last Admin: 07/02/21 08:57 Dose: 1,000 mg Documented by: CONCEPCION Aspirin (Aspirin Enteric Coated 81 Mg Tablet.) 81 mg PO DAILY [facility] Last Admin: 07/02/21 08:57 Dose: 81 mg Documented by: CONCEPCION Docusate Sodium (Docusate Sodium 100 Mg Capsule) 100 mg PO DAILY PRN PRN Reason: Constipation Enoxaparin Sodium (Enoxaparin Sodium 40 Mg/0.4 Ml Syringe) 40 mg SUBCUT Q24H [facility] Last Admin: 07/02/21 08:57 Dose: 40 mg Documented by: CONCEPCION Famotidine (Famotidine 20 Mg Tablet) 40 mg PO BID [facility] Last Admin: 07/02/21 08:57 Dose: 40 mg Documented by: CONCEPCION Guaifenesin/Dextromethorphan (Guaifenesin Dm 100/10/5 Ml 5 Ml Syrup) 10 ml PO Q6H PRN PRN Reason: cough Ivermectin (Ivermectin 3 Mg Tablet) 24 mg PO DAILY [facility] Stop: 07/06/21 09:01 Last Admin: 07/02/21 08:56 Dose: 24 mg Documented by: CONCEPCION Methylprednisolone Sodium Succinate (Methylprednisolone Sod Succ 125 Mg/2 Ml Vial) 80 mg IVPUSH Q12H [facility] Last Admin: 07/02/21 08:57 Dose: 80 mg Documented by: CONCEPCION Ondansetron HCl (Ondansetron Hcl 4 Mg/2 Ml Vial) 4 mg IVPUSH Q8H PRN PRN Reason: Nausea and Vomiting Pharmacy Consult (Consult Rx Perform Med Rec) 1 each MISCELLANE ONCE PRN PRN Reason: Consult order Sodium Chloride (0.9 % Sodium Chloride Flush 3 Ml Syringe) 3 ml IVFLUSH QSHIFT [facility] Last Admin: 07/02/21 07:24 Dose: 3 ml Documented by: CONCEPCION Thiamine HCl (Thiamine Hcl 100 Mg Tablet) 200 mg PO BID [facility] Last Admin: 07/02/21 08:56 Dose: 200 mg Documented by: CONCEPCION Vitamin D (Cholecalciferol (Vitamin D3) 25 Mcg Tablet) 50 mcg PO DAILY [facility] Last Admin: 07/02/21 08:56 Dose: 50 mcg Documented by: CONCEPCION Zinc Sulfate (Zinc Sulfate 220 Mg Capsule) 220 mg PO DAILY [facility] Last Admin: 07/02/21 08:57 Dose: 220 mg Documented by: CONCEPCION Zolpidem Tartrate (Zolpidem Tartrate 5 Mg Tablet) 5 mg PO BEDTIME PRN PRN Reason: Insomnia Last Admin: 07/01/21 23:39 Dose: 5 mg Documented by: TAMMY Labs CBC & Chem 7: 07/01/21 05:33 07/01/21 05:33 Microbiology Microbiology Results: Microbiology 07/01/21 00:37 Blood Culture - Preliminary Blood - Venous No growth after 24 hours. 07/01/21 00:37 Blood Culture - Preliminary Blood - Venous No growth after 24 hours. Assessment and Plan (1) Acute respiratory failure with hypoxia: Status: Acute (2) Pneumonia due to COVID-19 virus: Status: Acute (3) Breast mass: Status: Acute Assessment and Plan: 41-year-old female with no significant past medical history presents to the hospital with worsening symptoms of COVID-19 infection # acute hypoxic respiratory failure due to COVID-19 pneumonia diagnosed 06/26 Events from last night reviewed patient became hypoxic requiring non- rebreather and high-flow oxygen Patient remains tachypneic, although oxygenation has improved, since patient is not vaccinated with extensive bilateral ground-glass opacities on CTA chest patient will be transferred to ICU for higher level of care CTA chest showed no PE Case discussed with Dr. Yoon Will continue high-dose IV Solu-Medrol, vitamin-C, zinc, vitamin-D, Pepcid and add cough medication, continue oxygen to keep finger oximetry above 94 Further treatment plan as per service electrician # mild pancytopenia likely due to COVID infection ,follow CBC, CRP, LDH ?? # bilateral breast masses ?? seen on CT scan of the chest, recommend outpatient follow-up with primary care physician for further testing soon after discharge from hospital DVT prophylaxis:? Heparin subQ Quality Stroke Does the patient have a stroke diagnosis?: No VTE Prior VTE?: No VTE Risk Level:: Medical - moderate - high VTE Device Contraindication: Treatment Not Indicated VTE Drug Contraindication: N/A - Med Ordered
[2021-07-02] MEDS: Acetaminophen 325 MG TABLET 650 MG PO (15:50)
[2021-07-02] MEDS: guaiFENesin DM 100/10/5 ML 5 ML SYRUP 10 ML PO (15:50)
[2021-07-02 15:52] LABS: Appearance Urine HAZY; Color Urine RED; Glucose Urine UA NEG (NEG); Leukocyte Esterase Urine 2+ (NEG); Nitrite Urine NEG (NEG); PH 6.5 (5.0-8.0); UACC Culture Trigger YES; Urine Blood 3+ (NEG); Urine Ketones NEG (NEG); Urine Protein 1+ MG/DL (NEG-TRACE)
[2021-07-02 16:01] LABS: RBC Urine TNTC /HPF (0); Squamous Epithelial Cell Urine 1+ /LPF
--- NOTE | 2021-07-02 17:01 | P.PNCC_ITS ---
Subjective Subjective Date of Service: 07/02/21 Interval History: Mrs. Astudillo was transferred to the ICU this morning with hypoxemic respiratory failure 2? COVID pneumonia. The patient is a 41-year-old woman with limited past medical history of only nep hrolithiasis.? She also has a history of breast biopsy and laparoscopic cholecystectomy.? She takes no medications on the outside.? She is [place]ian- speaking only. She presented to the ED 2 days ago with a 9 day history of nausea, vomiting, shortness of breath, cough, fever, and pleuritic chest pain.? Reportedly, she tested positive for COVID (elsewhere) on June 26.? reported that everyone in the family had COVID; they were all unvaccinated. In the ED, Sat was 93% on room air, then 96% on 2L NC.? CXR showed typical bilat COVID infitrates.? CTPA notable for moderate typical bilat COVID infiltrates. ?No PE or right heart strain.? Incidental finding on the CT scan were deep bilateral breast masses with central calcification. ?Labs in the ED showed low- normal white count with mild leukopenia.? Chemistries were unremarkable except for mild hyperglycemia; no biomarkers were sent. She was admitted to Medicine and treated with dexamethasone.? She was not given remdesivir.? Since admission, her oxygen requirement has progressively escalated.? Last night she required high-flow nasal cannula.? Dr. Granados called m e this morning and we transferred her to the ICU. On exam this afternoon, she?s sleeping soundly.? Breathing easy with RR 27, Sat 90% on 15L [place].? HR 76, BP 115/76.? She has been afebrile throughout her hospital stay.? Mildly obese.? No JVD.? Normal expiratory phase.? No edema. LABORATORY DATA:? No labs this morning.? BUN and creatinine yesterday were 10/0.8. IMPRESSION:? Generally previously healthy woman 1. Mild obesity. 2. Probably has borderline DM.? Check Hb A1c w tomorrow AM?s labs 3. COVID-19 pneumonia.? Assume symptom onset date June 21.? Will send SARs CoV 2 IgG today.? Judging by her CT scan (FWIW), risk of is not unsubstantial.? I have therefore put her on the full EVMS protocol, including ivermectin and Solumedrol 80mg bid, plus vit D, vit C, ASA, thiamine, and zinc.? Check biomarkers tomorrow.? If DDimer is very high, I will accelerate her anticoagulation. 4. Acute hypoxemic respiratory failure.? Secondary to above. 5. Incidental breast masses on CT.? Based on her hx, I?m guessing that these are known, but they require f/u by her PMD after dischg. Time:? . Critical Care Time (minutes): 0 Physical Exam Vital Signs: Vital Signs: Last Vital Signs Temp 96.8 F 07/02/21 15:59 Pulse 76 07/02/21 15:59 Resp 32 H 07/02/21 15:59 BP 115/76 07/02/21 15:59 Pulse Ox 90 L 07/02/21 15:59 Body Mass Index 28.3 Objective Data Labs CBC & Chem 7: 07/01/21 05:33 07/01/21 05:33 Labs: Laboratory Results - last 24 hr 07/02/21 15:40 Urine Color RED Urine Appearance HAZY Urine pH 6.5 Ur Specific [place] 1.020 Urine Protein 1+ H Urine Glucose (UA) NEG Urine Ketones NEG Urine Blood 3+ H Urine Nitrite NEG Ur Leukocyte Esterase 2+ H Urine RBC TNTC H Urine WBC 15-29 H Ur Squamous Epith Cells 1+ Urine Bacteria NONE Microbiology Microbiology Results: Microbiology 07/01/21 00:37 Blood - Venous Blood Culture - Preliminary No growth after 24 hours. 07/01/21 00:37 Blood - Venous Blood Culture - Preliminary No growth after 24 hours. Quality Stroke Does the patient have a stroke diagnosis?: No VTE Prior VTE?: No VTE Risk Level:: Medical - moderate - high VTE Device Contraindication: Treatment Not Indicated VTE Drug Contraindication: N/A - Med Ordered
[2021-07-02] MEDS: Melatonin 3 MG TABLET 9 MG PO (20:29)
[2021-07-03] VITALS (27 sets, daily range): BP systolic 103–124; BP diastolic 64–77; PULSE 59–96; RESP 21–38; TEMP 35.3–36.6; O2SAT 85–96
[2021-07-03] MEDS: Morphine Sulfate 2 MG/ML CARTRIDGE IVPUSH ×5 (00:03→22:16)
--- NOTE | 2021-07-03 02:38 | PC.NURSE ---
Pt A&Ox4, endorses mild anxiety- classifier utilized for assessment. Afebrile. NSR/ST on tele, HR 60s at rest, up to 110s with activity/ambulation. Currently requires 15L [place] to maintain SpO2. 15L/100% NRB applied when OOB to BSC and as needed for pt comfort- desaturates easily and LEARY, RR 30s. New order for PRN 2mg IVP morphine q6hr for WOB, given x1 with some effect. BP WNL. Skin intact. Pt aware of plan of care, offers no complaints at this time.
[2021-07-03 05:12] LABS: VBG HCO3 23 mmol/L (22-26); VBG pCO2 37 mmHg; VBG pO2 43 mmHg
[2021-07-03 05:15] LABS: Hematocrit 35.9 % (37-47); Hemoglobin 10.9 g/dl (12.0-16.0); Mean Corpuscular HGB Conc 30.4 g/dl (31.0-35.0); Mean Corpuscular Hemoglobin 23.7 pg (27.0-33.0); Mean Corpuscular Volume 78.2 fL (80-98); Mean Platelet Volume 9.7 fL (9.4-12.3); Platelet Count 173 X10*3/uL (160-400); Red Blood Count 4.59 X10*6/uL (4.20-5.50); White Blood Count 5.9 X10*3/uL (4.8-10.8)
[2021-07-03 05:37] LABS: D Dimer 526 NG/ML
[2021-07-03 05:38] LABS: Alanine Aminotransferase 44 U/L (0-31); Albumin Level 3.1 g/dL (3.5-5.0); Alkaline Phosphatase 90 U/L (39-117); Anion Gap 14 (12-20); Aspartate Amino Transferase 66 U/L (5-31); Bilirubin Total 0.3 mg/dL (0.0-1.0); Blood Urea Nitrogen 15 mg/dL (9-16); C Reactive Protein 0.94 mg/dL (< or = 0.50); Calcium 8.2 mg/dL (8.4-10.2); Carbon Dioxide 25 mmol/L (22-29); Chloride 103 mmol/L (96-108); Creatinine Clr Calc Pharmacy 100.3; Estimated Glomerular Filt Rate > 60; Glucose Random 235 mg/dL (60-115); Magnesium 1.9 mg/dL (1.6-2.6); Phosphorus 4.1 mg/dL (2.7-4.5); Potassium 4.4 mmol/L (3.3-5.1); Sodium 138 mmol/L (135-145)
[2021-07-03 05:58] LABS: Ferritin 125 ng/mL (10-250)
[2021-07-03 06:03] LABS: Venous Blood Gas Refer to POC result
[2021-07-03 06:31] LABS: Procalcitonin 0.08 ng/mL
[2021-07-03 07:09] LABS: Estimated Average Glucose 126 mg/dL
[2021-07-03] MEDS: Cholecalciferol (Vitamin D3) 25 MCG TABLET 50 MCG PO (07:23)
[2021-07-03] MEDS: Zinc Sulfate 220 MG CAPSULE PO (07:23)
[2021-07-03] MEDS: Thiamine HCL 100 MG TABLET 200 MG PO ×2 (07:23→20:58)
[2021-07-03] MEDS: Ascorbic Acid 500 MG TABLET 1000 MG PO ×4 (07:23→20:59)
[2021-07-03] MEDS: Famotidine 20 MG TABLET 40 MG PO ×2 (07:23→20:58)
[2021-07-03] MEDS: Aspirin Enteric Coated 81 MG TABLET.DR PO (07:23)
[2021-07-03] MEDS: Enoxaparin Sodium 40 MG/0.4 ML SYRINGE SUBCUT (07:24)
[2021-07-03] MEDS: 0.9 % Sodium Chloride Flush 3 ML SYRINGE IVFLUSH ×3 (07:24→23:43)
[2021-07-03] MEDS: Acetaminophen 325 MG TABLET 650 MG PO ×2 (10:00→19:29)
[2021-07-03] MEDS: methylPREDNISolone Sod Succ 125 MG/2 ML VIAL 80 MG IVPUSH ×2 (10:01→20:57)
--- NOTE | 2021-07-03 16:17 | P.PNCC_ITS ---
Subjective Subjective Date of Service: 07/03/21 Interval History: Mrs. Astudillo was transferred to the ICU yesterday morning with hypoxemic respiratory failure 2? COVID pneumonia. The patient is a 41-year-old woman with limited past medical history of only nephrolithiasis.? She also has a history of breast biopsy and laparoscopic cholecystectomy.? She takes no medications on the outside.? She is Nigerian- speaking only. She presented to the ED 3 days ago with a 9 day history of nausea, vomiting, shortness of breath, cough, fever, and pleuritic chest pain.? Reportedly, she tested positive for COVID (elsewhere) on June 26.? (Will assume symptom onset date June 21.)? According to the patient?s , everyone in the family had COVID; they were all unvaccinated. In the ED, Sat was 93% on room air, then 96% on 2L NC.? CXR showed typical bilat COVID infitrates.? CTPA notable for moderate severity, typical bilat COVID infiltrates.? No PE or right heart strain. ?Incidental finding on the CT scan were deep bilateral breast masses with central calcification.? Labs in the ED showed low-normal white count with mild leukopenia.? Chemistries were unremarkable except for mild hyperglycemia; no biomarkers were sent. She was admitted to Medicine and treated with dexamethasone.? She was not given remdesivir.? Her oxygen requirement escalated rapidly and within 36 hrs she was on HFNC 100%.? That morning (yesterday), Dr. Granados called me and we transferred her to the ICU.? Bec of her rapid FiO2 escalation and her CT scan, her risk of was judged to be not insubstantial.? She was therefore started on the full EVMS protocol, including ivermectin and Solumedrol 80mg bid, plus vit D, vit C, ASA, thiamine, and zinc.? ?Since then, she?s been on the [place] oxygen at 15L, occ supplemented with NRBFM when she gets anxious or moves around. On exam this afternoon, she?s awake and oriented.? Breathing easy with RR 21 (down from high 20?s yesterday), Sat 92% on 15L [place].? VBG this morning showed 7.40/37/-1.? HR is down to 61, BP 109/65.? She has been afebrile throughout her hospital stay.? No JVD at 30?.? Chest is clear to auscultation, with normal extra phase.? Abdomen is benign.? No edema. LABORATORY DATA:? As below. Biomarkers:? DDimer 526.? Ferritin 125.? CRP 0.9, PCT 0.08. IMPRESSION:? Generally previously healthy woman. 1. Mild obesity. 2. COVID-19 pneumonia.? Assume symptom onset date June 21.? SARs CoV 2 IgG from yesterday is pending, will be run tomorrow morning.? On full EVMS protocol. 3. Acute hypoxemic respiratory failure.? Secondary to above.? Oxygenation is reasonable on the [place].? Opiates prn SOB. 4. Hkyperglycemia.? Hb A1c is 6.0%, which is the upp limit of normal.? So she probably has borderline DM.? Now aggravated by the steroids.? We?ll start her on SS insulin. 5. Incidental breast masses on CT.? Based on her hx, I?m guessing that these are known, but they require f/u by her PMD after dischg. Time:? [id number]. Critical Care Time (minutes): 0 Physical Exam Vital Signs: Vital Signs: Last Vital Signs Temp 95.5 F L 07/03/21 07:00 Pulse 59 07/03/21 16:00 Resp 21 H 07/03/21 16:00 BP 109/65 07/03/21 16:00 Pulse Ox 92 07/03/21 16:00 Body Mass Index 28.3 Objective Data Labs CBC & Chem 7: 07/03/21 05:06 07/03/21 05:06 Labs: Laboratory Results - last 24 hr 07/03/21 07/03/21 07/03/21 05:06 05:06 05:06 WBC 5.9 RBC 4.59 Hgb 10.9 L Hct 35.9 L MCV 78.2 L MCH 23.7 L MCHC 30.4 L RDW 21.0 H Plt Count 173 MPV 9.7 Absolute Nucleated RBC 0.000 Nucleated RBC % (auto) 0.0 D-Dimer 526 VBG pH VBG pCO2 VBG pO2 VBG HCO3 VBG O2 Saturation VBG Base Excess Sodium 138 Potassium 4.4 Chloride 103 Carbon Dioxide 25 Anion Gap 14 BUN 15 Creatinine 0.75 Estim Creat Clear Calc 100.3 Estimated GFR > 60 Random Glucose 235 H Estimat Average Glucose Hemoglobin A1c % Calcium 8.2 L D Phosphorus 4.1 Magnesium 1.9 Ferritin 125 Total Bilirubin 0.3 AST 66 H ALT 44 H Alkaline Phosphatase 90 C-Reactive Protein 0.94 H Total Protein 6.0 L Albumin 3.1 L Procalcitonin 07/03/21 07/03/21 07/03/21 05:06 05:06 05:07 WBC RBC Hgb Hct MCV MCH MCHC RDW Plt Count MPV Absolute Nucleated RBC Nucleated RBC % (auto) D-Dimer VBG pH 7.40 VBG pCO2 37 VBG pO2 43 VBG HCO3 23 VBG O2 Saturation 65.0 VBG Base Excess -1.0 Sodium Potassium Chloride Carbon Dioxide Anion Gap BUN Creatinine Estim Creat Clear Calc Estimated GFR Random Glucose Estimat Average Glucose 126 Hemoglobin A1c % 6.0 Calcium Phosphorus Magnesium Ferritin Total Bilirubin AST ALT Alkaline Phosphatase C-Reactive Protein Total Protein Albumin Procalcitonin 0.08 Microbiology Microbiology Results: Microbiology 07/02/21 15:55 Urine clean catch - Urine ortiz top Urine Culture - Final 07/01/21 00:37 Blood - Venous Blood Culture - Preliminary No growth after 48 hours. 07/01/21 00:37 Blood - Venous Blood Culture - Preliminary No growth after 48 hours. Quality Stroke Does the patient have a stroke diagnosis?: No VTE Prior VTE?: No VTE Risk Level:: Medical - moderate - high VTE Device Contraindication: Treatment Not Indicated VTE Drug Contraindication: N/A - Med Ordered
--- NOTE | 2021-07-03 17:40 | PC.NURSE ---
VSS, afebrile. Pt alert and oriented. LS clear, 15L [place] satting >90%, occasionally uses NRB wheel eating/oob or feeling SOB. RR up to 50s at some points, given PRN morphine with good effect. Per MD take NC off and put NRB on to give pt's nose break from [place], satting >90% on NRB. SR on tele, repositions self as tolerated/per comfort, occasionally asks for assiatnce. Eating about 25% of meals, pt sleepy throughout day, update given to dheeraj.
[2021-07-03] MEDS: Magnesium Sulfate/H2O 2 GM/50 ML PIGGYBACK IV (18:13)
[2021-07-03] MEDS: Melatonin 3 MG TABLET 9 MG PO (20:59)
[2021-07-03] MEDS: Insulin Lispro 100 UNIT/ML 3 ML VIAL SUBCUT (21:29)
[2021-07-03 21:37] LABS: Glucose, Whole Blood 254 mg/dL (60-115)
[2021-07-04] VITALS (32 sets, daily range): BP systolic 102–127; BP diastolic 61–82; PULSE 62–84; RESP 20–36; TEMP 36.1–37; O2SAT 89–96; BMI 28.3
[2021-07-04 07:37] LABS: Glucose, Whole Blood 209 mg/dL (60-115)
[2021-07-04] MEDS: Insulin Lispro 100 UNIT/ML 3 ML VIAL SUBCUT ×4 (08:00→21:55)
[2021-07-04] MEDS: 0.9 % Sodium Chloride Flush 3 ML SYRINGE IVFLUSH ×2 (08:00→16:10)
[2021-07-04 08:24] LABS: SARS COV2 IgG Negative (Negative)
[2021-07-04] MEDS: methylPREDNISolone Sod Succ 125 MG/2 ML VIAL 80 MG IVPUSH (08:33)
[2021-07-04] MEDS: Aspirin Enteric Coated 81 MG TABLET.DR PO (08:34)
[2021-07-04] MEDS: Cholecalciferol (Vitamin D3) 25 MCG TABLET 50 MCG PO (08:34)
[2021-07-04] MEDS: Enoxaparin Sodium 40 MG/0.4 ML SYRINGE SUBCUT (08:34)
[2021-07-04 08:35] LABS: MANUAL DIFF FLAG NO
[2021-07-04 08:37] LABS: VBG Base Excess 3.4 mmol/L; VBG HCO3 27 mmol/L (22-26); VBG pCO2 38 mmHg; VBG pH 7.45 (7.32-7.43); VBG pO2 42 mmHg
[2021-07-04 08:50] LABS: Basophils Percent Auto 0.1 % (0-2); Hematocrit 35.3 % (37-47); Hemoglobin 10.8 g/dl (12.0-16.0); Imm Gran Abs Auto 0.09 X10*3/uL (0.00-0.03); Imm Gran Pct Auto 0.8 % (0.0-0.4); Lymphocytes Absolute Auto 0.5 X10*3/uL (1.2-4.9); Lymphocytes Percent Auto 4.8 % (20-40); Mean Corpuscular HGB Conc 30.6 g/dl (31.0-35.0); Mean Corpuscular Hemoglobin 23.5 pg (27.0-33.0); Mean Corpuscular Volume 76.9 fL (80-98); Monocytes Absolute Auto 0.5 X10*3/uL (0.1-1.2); Monocytes Percent Auto 4.3 % (2-11); Neutrophils Absolute Auto 9.7 X10*3/uL (2.0-8.3); Platelet Count 208 X10*3/uL (160-400); Red Blood Count 4.59 X10*6/uL (4.20-5.50); Red Cell Distribution Width 20.9 % (11.0-16.0); White Blood Count 10.7 X10*3/uL (4.8-10.8)
[2021-07-04 09:14] LABS: Alanine Aminotransferase 122 U/L (0-31); Albumin Level 3.1 g/dL (3.5-5.0); Alkaline Phosphatase 138 U/L (39-117); Anion Gap 13 (12-20); Aspartate Amino Transferase 104 U/L (5-31); Bilirubin Total 0.5 mg/dL (0.0-1.0); Blood Urea Nitrogen 15 mg/dL (9-16); Calcium 8.2 mg/dL (8.4-10.2); Carbon Dioxide 28 mmol/L (22-29); Chloride 102 mmol/L (96-108); Estimated Glomerular Filt Rate > 60; Glucose Random 244 mg/dL (60-115); Magnesium 2.2 mg/dL (1.6-2.6); Phosphorus 3.1 mg/dL (2.7-4.5); Potassium 4.5 mmol/L (3.3-5.1); Sodium 138 mmol/L (135-145); Total Protein 6.2 g/dL (6.5-8.0)
[2021-07-04 10:10] LABS: Glucose, Whole Blood 199 mg/dL (60-115)
--- NOTE | 2021-07-04 10:46 | P.PNCC_ITS ---
Subjective Subjective Date of Service: 07/04/21 Interval History: A 41-year-old lady was no past medical history, not vaccinated for COVID-19, admitted on 06/30/2020 his dyspnea and hypoxemia and a one-week history of COVID-19 symptoms. Patient has been initially admitted to general medical [facility] and treated with dexamethasone. Her hospital course was significant for progressive hypoxemia requiring high-flow nasal cannula and 100% non-rebreather. On 07/02/2021 she remained persistently hypoxemic despite utilization of both high-flow nasal cannula at 100% and 100% non-rebreather and at that time was transferred to intensive care unit for noninvasive positive pressure ventilation support. No evidence of a night. Continues to be on and off CPAP/high-flow support. Critical Care Time (minutes): 30 Physical Exam Vital Signs: Vital Signs: Last Vital Signs Temp 97.0 F 07/04/21 08:00 Pulse 76 07/04/21 10:00 Resp 34 H 07/04/21 10:00 BP 115/82 07/04/21 10:00 Pulse Ox 94 07/04/21 10:00 Body Mass Index 28.3 Const: General: no acute distress, alert and awake Eyes: Sclerae: sclerae normal EOM: EOMs intact bilaterally Neck: Neck: Yes no lymphadenopathy, Yes trachea midline and Yes supple Resp: Effort & Inspection: normal respiratory effort and no respiratory distress Auscultation: clear to auscultation bilaterally Cardio: Rate: regular rate Rhythm: regular rhythm Heart sounds: no gallops, no murmurs and no rubs GI: Palpation (GI): Soft to palpation and Other GI palpation findings present ( Nontender) Auscultation: normal bowel sounds Extrem: General: Yes no pedal edema, No clubbing and No cyanosis Objective Data Labs CBC & Chem 7: 07/04/21 08:30 07/04/21 08:30 Labs: Laboratory Results - last 24 hr 07/01/21 07/03/21 07/04/21 05:33 21:25 07:30 WBC RBC Hgb Hct MCV MCH MCHC RDW Plt Count MPV Immature Gran % (Auto) Neut % (Auto) Lymph % (Auto) [place] % (Auto) Eos % (Auto) Baso % (Auto) Lymph # (Auto) [place] # (Auto) Eos # (Auto) Baso # (Auto) Abs Immat Gran (auto) Absolute Neuts (auto) Absolute Nucleated RBC Nucleated RBC % (auto) VBG pH VBG pCO2 VBG pO2 VBG HCO3 VBG O2 Saturation VBG Base Excess Sodium Potassium Chloride Carbon Dioxide Anion Gap BUN Creatinine Estim Creat Clear Calc Estimated GFR POC Glucose 254 H 209 H Random Glucose Calcium Phosphorus Magnesium Total Bilirubin AST ALT Alkaline Phosphatase Total Protein Albumin SARS-CoV-2 IgG Ab Negative 07/04/21 07/04/21 07/04/21 08:30 08:30 08:32 WBC 10.7 RBC 4.59 Hgb 10.8 L Hct 35.3 L MCV 76.9 L MCH 23.5 L MCHC 30.6 L RDW 20.9 H Plt Count 208 MPV 10.0 Immature Gran % (Auto) 0.8 H Neut % (Auto) 90.0 H Lymph % (Auto) 4.8 L [place] % (Auto) 4.3 Eos % (Auto) 0.0 Baso % (Auto) 0.1 Lymph # (Auto) 0.5 L [place] # (Auto) 0.5 Eos # (Auto) 0.0 Baso # (Auto) 0.0 Abs Immat Gran (auto) 0.09 H Absolute Neuts (auto) 9.7 H Absolute Nucleated RBC 0.000 Nucleated RBC % (auto) 0.0 VBG pH 7.45 H VBG pCO2 38 VBG pO2 42 VBG HCO3 27 H VBG O2 Saturation 65.0 VBG Base Excess 3.4 Sodium 138 Potassium 4.5 Chloride 102 Carbon Dioxide 28 Anion Gap 13 BUN 15 Creatinine 0.69 Estim Creat Clear Calc 109.0 Estimated GFR > 60 POC Glucose Random Glucose 244 H Calcium 8.2 L Phosphorus 3.1 Magnesium 2.2 Total Bilirubin 0.5 AST 104 H ALT 122 H Alkaline Phosphatase 138 H D Total Protein 6.2 L Albumin 3.1 L SARS-CoV-2 IgG Ab 07/04/21 10:06 WBC RBC Hgb Hct MCV MCH MCHC RDW Plt Count MPV Immature Gran % (Auto) Neut % (Auto) Lymph % (Auto) [place] % (Auto) Eos % (Auto) Baso % (Auto) Lymph # (Auto) [place] # (Auto) Eos # (Auto) Baso # (Auto) Abs Immat Gran (auto) Absolute Neuts (auto) Absolute Nucleated RBC Nucleated RBC % (auto) VBG pH VBG pCO2 VBG pO2 VBG HCO3 VBG O2 Saturation VBG Base Excess Sodium Potassium Chloride Carbon Dioxide Anion Gap BUN Creatinine Estim Creat Clear Calc Estimated GFR POC Glucose 199 H Random Glucose Calcium Phosphorus Magnesium Total Bilirubin AST ALT Alkaline Phosphatase Total Protein Albumin SARS-CoV-2 IgG Ab Microbiology Microbiology Results: Microbiology 07/02/21 15:55 Urine clean catch - Urine ortiz top Urine Culture - Final 07/01/21 00:37 Blood - Venous Blood Culture - Preliminary No growth after 48 hours. 07/01/21 00:37 Blood - Venous Blood Culture - Preliminary No growth after 48 hours. Quality Stroke Does the patient have a stroke diagnosis?: No VTE Prior VTE?: No VTE Risk Level:: Medical - moderate - high VTE Device Contraindication: Treatment Not Indicated VTE Drug Contraindication: N/A - Med Ordered Progress Note: A&P Assessment and plan (1) Acute respiratory failure with hypoxia: Status: Acute Assessment and Plan: Assessment: 41-year-old lady admitted with acute hypoxic respiratory failure secondary to COVID-19 ARDS, now requiring noninvasive positive pressure ventilatory support. Plan: Neuro: No acute issues. Cardiac: No acute issues. Pulmonary: Acute hypoxic respiratory failure secondary to COVID-19 ARDS. Continue to titrate off noninvasive positive pressure ventilatory support as tolerated. Renal: No acute issues. Endo: No acute issues. GI: No acute issues. ID: COVID 19, not a candidate for remdesivir or barcitinib. Continue systemic glucocorticoids. Heme/Onc: No acute issues. Psych: No acute issues. Miscellaneous: No acute issues. Prophylaxis: Lovenox Diet: Regular Critical care time spent: 30 minutes (2) Acute respiratory distress syndrome (ARDS) due to COVID-19 virus: Status: Acute
[2021-07-04 11:16] LABS: Venous Blood Gas Refer to POC result
[2021-07-04 11:40] LABS: Glucose, Whole Blood 210 mg/dL (60-115)
[2021-07-04] MEDS: Morphine Sulfate 2 MG/ML CARTRIDGE IVPUSH ×3 (11:53→23:45)
--- NOTE | 2021-07-04 15:11 | MHC.CM.PN ---
Pt continues in ICU on high flow O2 with COVID. Very SOB and desats with any exertion. HCP completed with assistance from bread baker: scanned into EMR and copy in chart. [place] [facility] [place] is NOT eligible for upgrade from [employer] d/t pt cancelling her connector plan. She will need to wait for open enrollment with the connector plans OR be added to her spouse's work sponsored plan. Financial counseling has spoken with pt's spouse about above. CM to follow for finalization of d/c plans. Pt would not be eligible for services at d/c including: VNA, STR, O2. In addition, pt does not have an active PCP but was previously a pt at [address]: provider unknown.
[2021-07-04 16:40] LABS: Glucose, Whole Blood 202 mg/dL (60-115)
[2021-07-04 21:59] LABS: Glucose, Whole Blood 207 mg/dL (60-115)
[2021-07-05] VITALS (37 sets, daily range): BP systolic 105–129; BP diastolic 36–85; PULSE 58–94; RESP 13–40; TEMP 36.9–37.2; O2SAT 85–98; BMI 26.2
[2021-07-05] MEDS: fentaNYL citrate/PF 100 MCG/2 ML VIAL 25 MCG IVPUSH ×7 (02:23→22:41)
--- NOTE | 2021-07-05 03:35 | PC.NURSE ---
CARE ASSUMED 23:15...AWAKE..ALERT..ORIENTED X3..ANXIOUS AT TIMES...100% FIO2/55 L/M FLORATE HI-TREVOR CANNULA AND PRN 100% NRB...REMAINS TACHYPNEIC..SAO2 92-94% AT REST...DESATS WITH MINIMAL ACTIVITY...MORPHINE 2MG IV 23:45 FOR WORK OF BREATHING...RR 40'S/SAO2 84%....GRADUAL RECOVERY AFTER MORPHINE TO 91%...ICU PA PRESENT...PRN BIPAP/CPAP ORDERED ON STANDBY...NAPPED AFTER MORPHINE...AWAKE 02:15...OOB TO BEDSIDE COMMODE...VOIDED 700ml...REMAINS (+) MENSES...RR 40'S-50'S...SAO2 70% WITH ACTIVITY...BACK TO BED..C/O CHEST PAIN WITH BREATHING/COUGH...MEDICATED WITH PRN FENTANYL ORDERED BY PA WITH EFFECT...DOZING AFTERWARDS...SAO2 UP TO 95%...BIPAP REMAINS ON STANDBY
--- NOTE | 2021-07-05 05:01 | PC.NURSE ---
REQUESTED SNACK... MY SUGAR MIGHT BE LOW ...PROVIDED WITH OJ/CEREAL PER REQUEST...POC [id number]
[2021-07-05 05:24] LABS: Glucose, Whole Blood 155 mg/dL (60-115)
[2021-07-05 05:39] LABS: Hematocrit 33.5 % (37-47); Hemoglobin 10.2 g/dl (12.0-16.0); Imm Gran Abs Auto 0.09 X10*3/uL (0.00-0.03); Imm Gran Pct Auto 0.9 % (0.0-0.4); Lymphocytes Percent Auto 10.6 % (20-40); MANUAL DIFF FLAG SCAN; Mean Corpuscular HGB Conc 30.4 g/dl (31.0-35.0); Mean Corpuscular Hemoglobin 23.7 pg (27.0-33.0); Mean Corpuscular Volume 77.7 fL (80-98); Mean Platelet Volume 10.2 fL (9.4-12.3); Monocytes Absolute Auto 0.5 X10*3/uL (0.1-1.2); Monocytes Percent Auto 4.9 % (2-11); Neutrophils Percent Auto 83.6 % (45-73); Platelet Count 190 X10*3/uL (160-400); Red Blood Count 4.31 X10*6/uL (4.20-5.50); Red Cell Distribution Width 20.9 % (11.0-16.0); SCAN SMEAR FLAG 1; White Blood Count 9.6 X10*3/uL (4.8-10.8)
[2021-07-05 05:42] LABS: VBG Base Excess 3.7 mmol/L; VBG HCO3 27 mmol/L (22-26); VBG pCO2 38 mmHg; VBG pH 7.46 (7.32-7.43); VBG pO2 45 mmHg
[2021-07-05 05:48] LABS: D Dimer 721 NG/ML
[2021-07-05 06:04] LABS: Anion Gap 14 (12-20); Blood Urea Nitrogen 17 mg/dL (9-16); Calcium 8.3 mg/dL (8.4-10.2); Carbon Dioxide 28 mmol/L (22-29); Chloride 101 mmol/L (96-108); Creatinine Clr Calc Pharmacy 106.8; Estimated Glomerular Filt Rate > 60; Glucose Random 194 mg/dL (60-115); Phosphorus 2.8 mg/dL (2.7-4.5); Sodium 139 mmol/L (135-145)
[2021-07-05 06:05] LABS: SLIDE REVIEW VERIFIED
[2021-07-05 06:16] LABS: Venous Blood Gas Refer to POC result
[2021-07-05] MEDS: Aspirin Enteric Coated 81 MG TABLET.DR PO (07:28)
[2021-07-05] MEDS: 0.9 % Sodium Chloride Flush 3 ML SYRINGE IVFLUSH ×3 (07:28→15:57)
[2021-07-05] MEDS: Acetaminophen 325 MG TABLET 650 MG PO ×2 (07:28→20:03)
[2021-07-05] MEDS: methylPREDNISolone Sod Succ 125 MG/2 ML VIAL 80 MG IVPUSH (07:28)
[2021-07-05 07:29] LABS: Glucose, Whole Blood 205 mg/dL (60-115)
[2021-07-05] MEDS: Enoxaparin Sodium 40 MG/0.4 ML SYRINGE SUBCUT (07:29)
[2021-07-05] MEDS: Insulin Lispro 100 UNIT/ML 3 ML VIAL SUBCUT ×4 (07:48→21:42)
[2021-07-05] MEDS: Midazolam HCl/PF 2 MG/2 ML VIAL 0.5 MG IVPUSH ×4 (11:24→22:35)
[2021-07-05 11:26] LABS: Glucose, Whole Blood 221 mg/dL (60-115)
--- NOTE | 2021-07-05 12:48 | PM.CCPN ---
Subjective Subjective Date of Service: 07/05/21 Interval History: 41-year-old lady was no past medical history, not vaccinated for COVID-19, admitted on 06/30/2020 his dyspnea and hypoxemia and a one-week history of COVID-19 symptoms.? Patient has been initially admitted to general medical [facility] and treated with dexamethasone.? Her hospital course was significant for progressive hypoxemia requiring high-flow nasal cannula and 100% non-rebreather.? On 07/02/2021 she remained persistently hypoxemic despite utilization of both high-flow nasal cannula at 100% and 100% non-rebreather and at that time was transferred to intensive care unit for noninvasive positive pressure ventilation support. No events at night.? Continues to be on and off CPAP/high-flow support. Critical Care Time (minutes): 30 Physical Exam Vital Signs: Vital Signs: Last Vital Signs Temp 98.4 F 07/05/21 12:00 Pulse 58 07/05/21 12:00 Resp 13 07/05/21 12:00 BP 127/36 L 07/05/21 12:00 Pulse Ox 98 07/05/21 12:00 Body Mass Index 26.2 Const: General: no acute distress, alert and awake Eyes: Sclerae: sclerae normal EOM: EOMs intact bilaterally Neck: Neck: Yes no lymphadenopathy, Yes trachea midline and Yes supple Resp: Effort & Inspection: normal respiratory effort and no respiratory distress Auscultation: crackles (Diffuse bilateral) Cardio: Rate: regular rate Rhythm: regular rhythm Heart sounds: no gallops, no murmurs and no rubs GI: Palpation (GI): Soft to palpation and Other GI palpation findings present ( Nontender) Auscultation: normal bowel sounds Extrem: General: Yes no pedal edema, No clubbing and No cyanosis Objective Data Labs CBC & Chem 7: 07/05/21 05:29 07/05/21 05:29 Labs: Laboratory Results - last 24 hr 07/04/21 07/04/21 07/05/21 16:32 21:49 04:45 WBC RBC Hgb Hct MCV MCH MCHC RDW Plt Count MPV Immature Gran % (Auto) Neut % (Auto) Lymph % (Auto) [place] % (Auto) Eos % (Auto) Baso % (Auto) Lymph # (Auto) [place] # (Auto) Eos # (Auto) Baso # (Auto) Abs Immat Gran (auto) Absolute Neuts (auto) Absolute Nucleated RBC Nucleated RBC % (auto) Smear Tech's Comments D-Dimer VBG pH VBG pCO2 VBG pO2 VBG HCO3 VBG O2 Saturation VBG Base Excess Sodium Potassium Chloride Carbon Dioxide Anion Gap BUN Creatinine Estim Creat Clear Calc Estimated GFR POC Glucose 202 H 207 H 155 H Random Glucose Calcium Phosphorus Magnesium Albumin 07/05/21 07/05/21 07/05/21 05:29 05:29 05:29 WBC 9.6 RBC 4.31 Hgb 10.2 L Hct 33.5 L MCV 77.7 L MCH 23.7 L MCHC 30.4 L RDW 20.9 H Plt Count 190 MPV 10.2 Immature Gran % (Auto) 0.9 H Neut % (Auto) 83.6 H Lymph % (Auto) 10.6 L [place] % (Auto) 4.9 Eos % (Auto) 0.0 Baso % (Auto) 0.0 Lymph # (Auto) 1.0 L [place] # (Auto) 0.5 Eos # (Auto) 0.0 Baso # (Auto) 0.0 Abs Immat Gran (auto) 0.09 H Absolute Neuts (auto) 8.0 Absolute Nucleated RBC 0.000 Nucleated RBC % (auto) 0.0 Smear Tech's Comments VERIFIED D-Dimer 721 VBG pH VBG pCO2 VBG pO2 VBG HCO3 VBG O2 Saturation VBG Base Excess Sodium 139 Potassium 4.0 Chloride 101 Carbon Dioxide 28 Anion Gap 14 BUN 17 H Creatinine 0.68 Estim Creat Clear Calc 106.8 Estimated GFR > 60 POC Glucose Random Glucose 194 H Calcium 8.3 L Phosphorus 2.8 Magnesium 2.0 Albumin 3.0 L 07/05/21 07/05/21 07/05/21 05:36 07:14 11:19 WBC RBC Hgb Hct MCV MCH MCHC RDW Plt Count MPV Immature Gran % (Auto) Neut % (Auto) Lymph % (Auto) [place] % (Auto) Eos % (Auto) Baso % (Auto) Lymph # (Auto) [place] # (Auto) Eos # (Auto) Baso # (Auto) Abs Immat Gran (auto) Absolute Neuts (auto) Absolute Nucleated RBC Nucleated RBC % (auto) Smear Tech's Comments D-Dimer VBG pH 7.46 H VBG pCO2 38 VBG pO2 45 VBG HCO3 27 H VBG O2 Saturation 59.0 VBG Base Excess 3.7 Sodium Potassium Chloride Carbon Dioxide Anion Gap BUN Creatinine Estim Creat Clear Calc Estimated GFR POC Glucose 205 H 221 H Random Glucose Calcium Phosphorus Magnesium Albumin Microbiology Microbiology Results: Microbiology 07/02/21 15:55 Urine clean catch - Urine ortiz top Urine Culture - Final 07/01/21 00:37 Blood - Venous Blood Culture - Preliminary No growth after 48 hours. 07/01/21 00:37 Blood - Venous Blood Culture - Preliminary No growth after 48 hours. Quality Stroke Does the patient have a stroke diagnosis?: No VTE Prior VTE?: No VTE Risk Level:: Medical - moderate - high VTE Device Contraindication: Treatment Not Indicated VTE Drug Contraindication: N/A - Med Ordered Progress Note: A&P Assessment and plan (1) Acute respiratory distress syndrome (ARDS) due to COVID-19 virus: Status: Acute Assessment and Plan: Assessment:? 41-year-old lady admitted with acute hypoxic respiratory failure secondary to COVID-19 ARDS, now requiring noninvasive positive pressure ventilatory support. Plan: Neuro:? No acute issues. Cardiac:? No acute issues. Pulmonary:? Acute hypoxic respiratory failure secondary to COVID-19 ARDS.? Continue to titrate off noninvasive positive pressure ventilatory support as tolerated. Renal:? No acute issues.? Endo:? No acute issues.? GI:? No acute issues. ID:? COVID 19, not a candidate for remdesivir or barcitinib.? Continue systemic glucocorticoids. Heme/Onc:? No acute issues. Psych:? No acute issues. Miscellaneous:? No acute issues. Prophylaxis:? Lovenox Diet:? Regular Critical care time spent:? 30 minutes (2) Acute respiratory failure with hypoxia: Status: Acute
--- NOTE | 2021-07-05 13:14 | PC.NURSE ---
Patient remains in ICU 262 for COVID+ complications with hypoxic resp failure. COntinues on IV steroids and Highflow nasal cannula with 100%NRB. SpO2 at rest as high as 98%. Highflow weaned down to 80%. Resting Spo2 now 91%. With activity HR increases to 120s with quick recovery. Desat to 70s with activity, slower recovery of SpO2. Two doses of 25mcg IVP Fentanyl given since this AM for pain. Moderate effect. 0.5mg IVP Versed given x1 for patient c/o anxiety. Good effect from this as patient was able to nap with RR down to 18 and SpO2 up to 98%. Eating meals, fair appetite. BM x2 today. Continues to menstruate, light flow noted.
--- NOTE | 2021-07-05 16:02 | PC.NURSE ---
Addendum entered by Claritza Huang RN 07/05/21 16:17: and RT made aware. Original Note: Pt's high flow was decreased from 80% and 70L by to 70% and 60L. Pt became very anxious and tachypnic. Sats then 83%. Pt moved back to previus settings and given 0.5mg of versed.
[2021-07-05 20:45] LABS: Glucose, Whole Blood 238 mg/dL (60-115)
[2021-07-05 20:45] LABS: Glucose, Whole Blood 196 mg/dL (60-115)
[2021-07-05] MEDS: hydrOXYzine HCL 50 MG TABLET PO (21:43)
--- NOTE | 2021-07-05 23:23 | PC.NURSE ---
Addendum entered by Katarzyna Young RN 07/06/21 00:17: PCXR ordered for increased shortness of breath. Original Note: Pt has been having anxiety with high resp rate of 30's-40. BELEN Resendiz, spoke with pt at 1930 with Palestinian interpretter to explain to her she needs totry to stay calm as the anxiety is not helping her breathing or oxygen level. Told pt we will give her meds to help with the anxiety and will put in a brooks cath so she doesn't have to exert herself. Pt received fentanyl 25 mcg IV X3 for work of breathing and also midazolam 0.5 mg IV X2. Pt was crying, moaning and C/O not being able to sleep. Hydralizine 50 mg po given for sleep. Palestinian interpretter used again at this time for persistent anxiety. Explained to her about how she has received so many doses of sedation to relieve anxiety and how we are afraid she may need to be intubated. Will give her another dose of versed and have a Spanigh sitter stay in room with pt to help relieve her fears until she is able to sleep.
[2021-07-06] VITALS (29 sets, daily range): BP systolic 101–146; BP diastolic 63–90; PULSE 44–108; RESP 18–36; TEMP 37.1–38.3; O2SAT 24–100; BMI 25.7
[2021-07-06] MEDS: Midazolam HCl/PF 2 MG/2 ML VIAL 0.5 MG IVPUSH
[2021-07-06] MEDS: dexmedeTOMIDidine HCL/NS 400 MCG/100 ML INFUS..BTL 8.94 MCG IVCONT (01:01)
[2021-07-06] MEDS: 0.9 % Sodium Chloride Flush 3 ML SYRINGE IVFLUSH (01:01)
--- NOTE | 2021-07-06 01:53 | PC.NURSE ---
Pt on Precedex drip titrated up to 1.2 mcg. Sitter at bedside. Pt is much calmer and resp rate is improved from 30's down to 24. O2 sat is 96%. Monitor shows NSR, rate 60's-70's, no ectopy.
[2021-07-06] MEDS: dexmedeTOMIDidine HCL/NS 400 MCG/100 ML INFUS..BTL 21.45 MCG IVCONT ×3 (04:24→13:22)
[2021-07-06 06:00] LABS: VBG Base Excess 5.4 mmol/L; VBG HCO3 26 mmol/L (22-26); VBG pCO2 27 mmHg; VBG pH 7.58 (7.32-7.43); VBG pO2 100 mmHg
[2021-07-06 06:10] LABS: Hemoglobin 10.9 g/dl (12.0-16.0); Lymphocytes Absolute Auto 0.6 X10*3/uL (1.2-4.9); Mean Corpuscular Volume 78.2 fL (80-98); SCAN SMEAR FLAG 1
[2021-07-06 06:13] LABS: Eosinophils Percent Auto 0.1 % (0-4); Hematocrit 36.5 % (37-47); Imm Gran Abs Auto 0.08 X10*3/uL (0.00-0.03); Imm Gran Pct Auto 0.8 % (0.0-0.4); Lymphocytes Percent Auto 5.7 % (20-40); Mean Corpuscular HGB Conc 29.9 g/dl (31.0-35.0); Mean Corpuscular Hemoglobin 23.3 pg (27.0-33.0); Mean Platelet Volume 10.7 fL (9.4-12.3); Monocytes Absolute Auto 0.4 X10*3/uL (0.1-1.2); Neutrophils Absolute Auto 8.6 X10*3/uL (2.0-8.3); Neutrophils Percent Auto 89.4 % (45-73); PLT CLUMP 1; Red Blood Count 4.67 X10*6/uL (4.20-5.50); Red Cell Distribution Width 20.5 % (11.0-16.0)
[2021-07-06 06:15] LABS: PLT ABN DIST 1
[2021-07-06 06:16] LABS: MANUAL DIFF FLAG NO; White Blood Count 9.6 X10*3/uL (4.8-10.8)
[2021-07-06 06:28] LABS: Anion Gap 15 (12-20); Blood Urea Nitrogen 15 mg/dL (9-16); Calcium 8.3 mg/dL (8.4-10.2); Carbon Dioxide 24 mmol/L (22-29); Chloride 104 mmol/L (96-108); Creatinine Clr Calc Pharmacy 117.9; Estimated Glomerular Filt Rate > 60; Glucose Random 191 mg/dL (60-115); Phosphorus 3.2 mg/dL (2.7-4.5); Potassium 4.6 mmol/L (3.3-5.1); Sodium 138 mmol/L (135-145)
--- NOTE | 2021-07-06 06:35 | PC.NURSE ---
After pt was started on Precedex drip, she was calm and rested well.
[2021-07-06 06:42] LABS: Platelet Count 164 X10*3/uL (160-400)
[2021-07-06 06:54] LABS: Venous Blood Gas Refer to POC result
[2021-07-06 07:23] LABS: Glucose, Whole Blood 190 mg/dL (60-115)
[2021-07-06] MEDS: Aspirin Enteric Coated 81 MG TABLET.DR PO (08:23)
[2021-07-06] MEDS: Insulin Lispro 100 UNIT/ML 3 ML VIAL SUBCUT ×4 (08:23→21:34)
[2021-07-06] MEDS: Enoxaparin Sodium 40 MG/0.4 ML SYRINGE SUBCUT (08:24)
[2021-07-06] MEDS: methylPREDNISolone Sod Succ 125 MG/2 ML VIAL 80 MG IVPUSH (08:24)
--- NOTE | 2021-07-06 11:06 | MHC.CM.PN ---
Pt remains in ICU with COVID on high flow O2. Call placed to her spouse, Omar to inquire on adding her to his medical insurance as she let her connector plan lapse, is not eligible for a HSN upgrade to Medicaid and can only re-enroll in a connector plan during open enrollment on 08/08. Explained to Omar that pt may require home O2 and this would not be covered by HSN and would need to be paid out of pocket. Omar will call his HR department today and proceed with the addition. CM to follow for finalization of d/c needs.
--- NOTE | 2021-07-06 11:24 | PM.CCPN ---
Subjective Subjective Date of Service: 07/06/21 Interval History: 41-year-old lady was no past medical history, not vaccinated for COVID-19, admitted on 06/30/2020 his dyspnea and hypoxemia and a one-week history of COVID-19 symptoms.? Patient has been initially admitted to [facility] and treated with dexamethasone.? Her hospital course was significant for progressive hypoxemia requiring high-flow nasal cannula and 100% non-rebreather.? On 07/02/2021 she remained persistently hypoxemic despite utilization of both high-flow nasal cannula at 100% and 100% non-rebreather and at that time was transferred to intensive care unit for noninvasive positive pressure ventilation support. No events at night.? Continues on Precedex drip for significant agitation. Critical Care Time (minutes): 30 Physical Exam Vital Signs: Vital Signs: Last Vital Signs Temp 100.8 F H 07/06/21 11:00 Pulse 63 07/06/21 11:00 Resp 25 H 07/06/21 11:00 BP 123/82 07/06/21 11:00 Pulse Ox 24 L 07/06/21 11:00 Body Mass Index 25.7 Const: General: no acute distress, alert and awake Eyes: Sclerae: sclerae normal EOM: EOMs intact bilaterally Neck: Neck: Yes no lymphadenopathy, Yes trachea midline and Yes supple Resp: Effort & Inspection: normal respiratory effort and no respiratory distress Auscultation: crackles (Diffuse bilateral) Cardio: Rate: regular rate Rhythm: regular rhythm Heart sounds: no gallops, no murmurs and no rubs GI: Palpation (GI): Soft to palpation and Other GI palpation findings present ( Nontender) Auscultation: normal bowel sounds Extrem: General: Yes no pedal edema, No clubbing and No cyanosis Objective Data Labs CBC & Chem 7: 07/06/21 05:53 07/06/21 05:53 Labs: Laboratory Results - last 24 hr 07/05/21 07/05/21 07/05/21 11:19 17:01 20:35 WBC RBC Hgb Hct MCV MCH MCHC RDW Plt Count MPV Immature Gran % (Auto) Neut % (Auto) Lymph % (Auto) [place] % (Auto) Eos % (Auto) Baso % (Auto) Lymph # (Auto) [place] # (Auto) Eos # (Auto) Baso # (Auto) Abs Immat Gran (auto) Absolute Neuts (auto) Absolute Nucleated RBC Nucleated RBC % (auto) VBG pH VBG pCO2 VBG pO2 VBG HCO3 VBG O2 Saturation VBG Base Excess Sodium Potassium Chloride Carbon Dioxide Anion Gap BUN Creatinine Estim Creat Clear Calc Estimated GFR POC Glucose 221 H 238 H 196 H Random Glucose Calcium Phosphorus Magnesium Albumin 07/06/21 07/06/21 07/06/21 05:53 05:53 05:54 WBC 9.6 RBC 4.67 Hgb 10.9 L Hct 36.5 L MCV 78.2 L MCH 23.3 L MCHC 29.9 L RDW 20.5 H Plt Count 164 MPV 10.7 Immature Gran % (Auto) 0.8 H Neut % (Auto) 89.4 H Lymph % (Auto) 5.7 L [place] % (Auto) 4.0 Eos % (Auto) 0.1 Baso % (Auto) 0.0 Lymph # (Auto) 0.6 L [place] # (Auto) 0.4 Eos # (Auto) 0.0 Baso # (Auto) 0.0 Abs Immat Gran (auto) 0.08 H Absolute Neuts (auto) 8.6 H Absolute Nucleated RBC 0.000 Nucleated RBC % (auto) 0.0 VBG pH 7.58 H VBG pCO2 27 VBG pO2 100 VBG HCO3 26 VBG O2 Saturation 98.0 VBG Base Excess 5.4 Sodium 138 Potassium 4.6 Chloride 104 Carbon Dioxide 24 Anion Gap 15 BUN 15 Creatinine 0.61 Estim Creat Clear Calc 117.9 Estimated GFR > 60 POC Glucose Random Glucose 191 H Calcium 8.3 L Phosphorus 3.2 Magnesium 2.0 Albumin 3.0 L 07/06/21 07:11 WBC RBC Hgb Hct MCV MCH MCHC RDW Plt Count MPV Immature Gran % (Auto) Neut % (Auto) Lymph % (Auto) [place] % (Auto) Eos % (Auto) Baso % (Auto) Lymph # (Auto) [place] # (Auto) Eos # (Auto) Baso # (Auto) Abs Immat Gran (auto) Absolute Neuts (auto) Absolute Nucleated RBC Nucleated RBC % (auto) VBG pH VBG pCO2 VBG pO2 VBG HCO3 VBG O2 Saturation VBG Base Excess Sodium Potassium Chloride Carbon Dioxide Anion Gap BUN Creatinine Estim Creat Clear Calc Estimated GFR POC Glucose 190 H Random Glucose Calcium Phosphorus Magnesium Albumin Microbiology Microbiology Results: Microbiology 07/01/21 00:37 Blood - Venous Blood Culture - Final No growth after 5 days. 07/01/21 00:37 Blood - Venous Blood Culture - Final No growth after 5 days. 07/02/21 15:55 Urine clean catch - Urine ortiz top Urine Culture - Final Quality Stroke Does the patient have a stroke diagnosis?: No VTE Prior VTE?: No VTE Risk Level:: Medical - moderate - high VTE Device Contraindication: Treatment Not Indicated VTE Drug Contraindication: N/A - Med Ordered Progress Note: A&P Assessment and plan (1) Acute respiratory distress syndrome (ARDS) due to COVID-19 virus: Status: Acute (2) Acute respiratory failure with hypoxia: Status: Acute Assessment and Plan: Assessment:? 41-year-old lady admitted with acute hypoxic respiratory failure secondary to COVID-19 ARDS, now requiring noninvasive positive pressure ventilatory support. Plan: Neuro:? Continue to titrate off Precedex drip as tolerated. Cardiac:? No acute issues. Pulmonary:? Acute hypoxic respiratory failure secondary to COVID-19 ARDS.? Continue to titrate off noninvasive positive pressure ventilatory support as tolerated. Renal:? No acute issues.? Endo:? No acute issues.? GI:? No acute issues. ID:? COVID 19, not a candidate for remdesivir or barcitinib.? Continue systemic glucocorticoids. Heme/Onc:? No acute issues. Psych:? No acute issues. Miscellaneous:? No acute issues. Prophylaxis:? Lovenox Diet:? Regular Critical care time spent:? 30 minutes
[2021-07-06 11:28] LABS: Glucose, Whole Blood 201 mg/dL (60-115)
[2021-07-06] MEDS: Acetaminophen 325 MG TABLET 650 MG PO (16:00)
[2021-07-06 16:34] LABS: Glucose, Whole Blood 235 mg/dL (60-115)
[2021-07-06] MEDS: dexmedeTOMIDidine HCL/NS 400 MCG/100 ML INFUS..BTL 14.3 MCG IVCONT (18:27)
--- NOTE | 2021-07-06 19:21 | PC.NURSE ---
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 High flow titrated to 80% 60L, LS clear to dim. u/o wnl, repo as tolerated. Family updated.
[2021-07-06 21:05] LABS: Glucose, Whole Blood 159 mg/dL (60-115)
[2021-07-07] VITALS (31 sets, daily range): BP systolic 80–122; BP diastolic 33–93; PULSE 32–71; RESP 18–39; TEMP 36.9–37.5; O2SAT 87–100; BMI 25.7
[2021-07-07] MEDS: dexmedeTOMIDidine HCL/NS 400 MCG/100 ML INFUS..BTL 14.3 MCG IVCONT ×3 (01:11→16:00)
[2021-07-07 06:07] LABS: VBG Base Excess 7.1 mmol/L; VBG HCO3 27 mmol/L (22-26); VBG pCO2 27 mmHg; VBG pH 7.61 (7.32-7.43); VBG pO2 57 mmHg
[2021-07-07 06:08] LABS: MANUAL DIFF FLAG NO
[2021-07-07 06:12] LABS: Basophils Percent Auto 0.1 % (0-2); Eosinophils Absolute Auto 0.1 X10*3/uL (0.0-0.4); Eosinophils Percent Auto 1.2 % (0-4); Hematocrit 33.7 % (37-47); Hemoglobin 10.4 g/dl (12.0-16.0); Lymphocytes Percent Auto 9.7 % (20-40); Mean Corpuscular HGB Conc 30.9 g/dl (31.0-35.0); Mean Corpuscular Hemoglobin 23.7 pg (27.0-33.0); Mean Corpuscular Volume 76.9 fL (80-98); Mean Platelet Volume 9.8 fL (9.4-12.3); Monocytes Absolute Auto 0.6 X10*3/uL (0.1-1.2); Monocytes Percent Auto 6.4 % (2-11); Neutrophils Absolute Auto 8.1 X10*3/uL (2.0-8.3); Neutrophils Percent Auto 81.6 % (45-73); Platelet Count 260 X10*3/uL (160-400); Red Blood Count 4.38 X10*6/uL (4.20-5.50); Red Cell Distribution Width 20.1 % (11.0-16.0)
[2021-07-07 06:25] LABS: Venous Blood Gas Refer to POC result
[2021-07-07 06:29] LABS: Albumin Level 2.8 g/dL (3.5-5.0); Anion Gap 16 (12-20); Blood Urea Nitrogen 19 mg/dL (9-16); Calcium 8.4 mg/dL (8.4-10.2); Carbon Dioxide 22 mmol/L (22-29); Chloride 102 mmol/L (96-108); Creatinine Clr Calc Pharmacy 121.9; Estimated Glomerular Filt Rate > 60; Glucose Random 151 mg/dL (60-115); Magnesium 1.9 mg/dL (1.6-2.6); Phosphorus 3.5 mg/dL (2.7-4.5); Potassium 4.7 mmol/L (3.3-5.1); Sodium 135 mmol/L (135-145)
[2021-07-07 07:23] LABS: Glucose, Whole Blood 154 mg/dL (60-115)
[2021-07-07] MEDS: 0.9 % Sodium Chloride Flush 3 ML SYRINGE IVFLUSH ×2 (07:30→16:05)
[2021-07-07] MEDS: Insulin Lispro 100 UNIT/ML 3 ML VIAL SUBCUT ×3 (07:30→16:05)
[2021-07-07] MEDS: Enoxaparin Sodium 40 MG/0.4 ML SYRINGE SUBCUT (07:31)
[2021-07-07] MEDS: methylPREDNISolone Sod Succ 125 MG/2 ML VIAL 80 MG IVPUSH (07:31)
[2021-07-07] MEDS: Aspirin Enteric Coated 81 MG TABLET.DR PO (07:31)
[2021-07-07 11:31] LABS: Glucose, Whole Blood 229 mg/dL (60-115)
[2021-07-07] MEDS: Acetaminophen 325 MG TABLET 650 MG PO ×2 (12:40→21:45)
--- NOTE | 2021-07-07 15:27 | PM.CCPN ---
Subjective Subjective Date of Service: 07/07/21 Interval History: 41-year-old lady was no past medical history, not vaccinated for COVID-19, admitted on 06/30/2020 his dyspnea and hypoxemia and a one-week history of COVID-19 symptoms. Patient has been initially admitted to [facility] and treated with dexamethasone. Her hospital course was significant for progressive hypoxemia requiring high-flow nasal cannula and 100% non-rebreather. On 07/02/2021 she remained persistently hypoxemic despite utilization of both high-flow nasal cannula at 100% and 100% non-rebreather and at that time was transferred to intensive care unit for noninvasive positive pressure ventilation support. No events overnight. Continues to require Precedex drip. Oxygenation slowly improving. Critical Care Time (minutes): 30 Physical Exam Vital Signs: Vital Signs: Last Vital Signs Temp 99.1 F 07/07/21 15:00 Pulse 53 07/07/21 15:00 Resp 21 H 07/07/21 15:00 BP 122/71 07/07/21 15:00 Pulse Ox 100 07/07/21 15:00 Body Mass Index 25.7 Const: General: no acute distress, alert, awake and anxious Eyes: Sclerae: sclerae normal EOM: EOMs intact bilaterally Neck: Neck: Yes no lymphadenopathy, Yes trachea midline and Yes supple Resp: Effort & Inspection: normal respiratory effort and no respiratory distress Auscultation: crackles (Bibasilar) Cardio: Rate: regular rate Rhythm: regular rhythm Heart sounds: no gallops, no murmurs and no rubs GI: Palpation (GI): Soft to palpation and Other GI palpation findings present ( Nontender) Auscultation: normal bowel sounds Extrem: General: Yes no pedal edema, No clubbing and No cyanosis Objective Data Labs CBC & Chem 7: 07/07/21 06:00 07/07/21 06:00 Labs: Laboratory Results - last 24 hr 07/06/21 07/06/21 07/07/21 16:30 21:01 06:00 WBC 10.0 RBC 4.38 Hgb 10.4 L Hct 33.7 L MCV 76.9 L MCH 23.7 L MCHC 30.9 L RDW 20.1 H Plt Count 260 D MPV 9.8 Immature Gran % (Auto) 1.0 H Neut % (Auto) 81.6 H Lymph % (Auto) 9.7 L [place] % (Auto) 6.4 Eos % (Auto) 1.2 Baso % (Auto) 0.1 Lymph # (Auto) 1.0 L [place] # (Auto) 0.6 Eos # (Auto) 0.1 Baso # (Auto) 0.0 Abs Immat Gran (auto) 0.10 H Absolute Neuts (auto) 8.1 Absolute Nucleated RBC 0.000 Nucleated RBC % (auto) 0.0 VBG pH VBG pCO2 VBG pO2 VBG HCO3 VBG O2 Saturation VBG Base Excess Sodium Potassium Chloride Carbon Dioxide Anion Gap BUN Creatinine Estim Creat Clear Calc Estimated GFR POC Glucose 235 H 159 H Random Glucose Calcium Phosphorus Magnesium Albumin 07/07/21 07/07/21 07/07/21 06:00 06:00 07:18 WBC RBC Hgb Hct MCV MCH MCHC RDW Plt Count MPV Immature Gran % (Auto) Neut % (Auto) Lymph % (Auto) [place] % (Auto) Eos % (Auto) Baso % (Auto) Lymph # (Auto) [place] # (Auto) Eos # (Auto) Baso # (Auto) Abs Immat Gran (auto) Absolute Neuts (auto) Absolute Nucleated RBC Nucleated RBC % (auto) VBG pH 7.61 H* VBG pCO2 27 VBG pO2 57 VBG HCO3 27 H VBG O2 Saturation 87.0 VBG Base Excess 7.1 Sodium 135 Potassium 4.7 Chloride 102 Carbon Dioxide 22 Anion Gap 16 BUN 19 H Creatinine 0.59 Estim Creat Clear Calc 121.9 Estimated GFR > 60 POC Glucose 154 H Random Glucose 151 H Calcium 8.4 Phosphorus 3.5 Magnesium 1.9 Albumin 2.8 L 07/07/21 11:27 WBC RBC Hgb Hct MCV MCH MCHC RDW Plt Count MPV Immature Gran % (Auto) Neut % (Auto) Lymph % (Auto) [place] % (Auto) Eos % (Auto) Baso % (Auto) Lymph # (Auto) [place] # (Auto) Eos # (Auto) Baso # (Auto) Abs Immat Gran (auto) Absolute Neuts (auto) Absolute Nucleated RBC Nucleated RBC % (auto) VBG pH VBG pCO2 VBG pO2 VBG HCO3 VBG O2 Saturation VBG Base Excess Sodium Potassium Chloride Carbon Dioxide Anion Gap BUN Creatinine Estim Creat Clear Calc Estimated GFR POC Glucose 229 H Random Glucose Calcium Phosphorus Magnesium Albumin Microbiology Microbiology Results: Microbiology 07/01/21 00:37 Blood - Venous Blood Culture - Final No growth after 5 days. 07/01/21 00:37 Blood - Venous Blood Culture - Final No growth after 5 days. 07/02/21 15:55 Urine clean catch - Urine ortiz top Urine Culture - Final Quality Stroke Does the patient have a stroke diagnosis?: No VTE Prior VTE?: No VTE Risk Level:: Medical - moderate - high VTE Device Contraindication: Treatment Not Indicated VTE Drug Contraindication: N/A - Med Ordered Progress Note: A&P Assessment and plan (1) Acute respiratory distress syndrome (ARDS) due to COVID-19 virus: Status: Acute (2) Acute respiratory failure with hypoxia: Status: Acute (3) Anxiety: Status: Acute Assessment and Plan: Assessment: 41-year-old lady admitted with acute hypoxic respiratory failure secondary to COVID-19 ARDS, now requiring noninvasive positive pressure ventilatory support. Plan: Neuro: Continue to titrate off Precedex drip as tolerated. Cardiac: No acute issues. Pulmonary: Acute hypoxic respiratory failure secondary to COVID-19 ARDS. Slowly improving. Continue to titrate off noninvasive positive pressure ventilatory support as tolerated. Renal: No acute issues. Endo: No acute issues. GI: No acute issues. ID: COVID 19, not a candidate for remdesivir or barcitinib. Continue systemic glucocorticoids. Heme/Onc: No acute issues. Psych: No acute issues. Miscellaneous: No acute issues. Prophylaxis: Lovenox Diet: Regular Critical care time spent: 30 minutes
[2021-07-07 16:10] LABS: Glucose, Whole Blood 209 mg/dL (60-115)
--- NOTE | 2021-07-07 18:31 | PC.NURSE ---
OOB TO COMMODE X 2 FOR BM. OOB TO RECLINER. 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 REMAINS ON PRECEDEX FOR ANXIETY. REMAINS ON HIGH FLOW 60L/80% AND OCCASIONALLY PLACES NRB TO FACE WHEN SOB.
[2021-07-07 21:32] LABS: Glucose, Whole Blood 132 mg/dL (60-115)
[2021-07-08] VITALS (35 sets, daily range): BP systolic 87–155; BP diastolic 53–96; PULSE 54–120; RESP 22–53; TEMP 36.9–37.8; O2SAT 84–95; BMI 25.7
--- NOTE | 2021-07-08 | ECG_ITS ---
Test Reason : chest pain Blood Pressure : / mmHG Vent. Rate : 082 BPM Atrial Rate : 082 BPM P-R Int : 114 ms QRS Dur : 068 ms QT Int : 382 ms P-R-T Axes : 091 -04 015 degrees QTc Int : 446 ms Normal sinus rhythm Moderate voltage criteria for LVH, may be normal variant Borderline ECG When compared with ECG of 30-JUN-2021 21:51, Vent. rate has decreased BY 41 BPM Nonspecific T wave abnormality no longer evident in Lateral leads Referred By: Florin Smith Electronically Signed By:IVET BENITEZ
[2021-07-08] MEDS: dexmedeTOMIDidine HCL/NS 400 MCG/100 ML INFUS..BTL 10.73 MCG IVCONT (00:10)
[2021-07-08] MEDS: fentaNYL citrate/PF 100 MCG/2 ML VIAL 25 MCG IVPUSH ×4 (00:50→08:37)
[2021-07-08 06:03] LABS: MANUAL DIFF FLAG NO
[2021-07-08 06:06] LABS: VBG Base Excess 5.4 mmol/L; VBG HCO3 29 mmol/L (22-26); VBG pCO2 42 mmHg; VBG pH 7.45 (7.32-7.43); VBG pO2 37 mmHg
[2021-07-08 06:07] LABS: Basophils Percent Auto 0.1 % (0-2); Eosinophils Absolute Auto 0.3 X10*3/uL (0.0-0.4); Eosinophils Percent Auto 3.3 % (0-4); Hematocrit 32.7 % (37-47); Hemoglobin 10.2 g/dl (12.0-16.0); Imm Gran Abs Auto 0.07 X10*3/uL (0.00-0.03); Imm Gran Pct Auto 0.7 % (0.0-0.4); Lymphocytes Absolute Auto 0.9 X10*3/uL (1.2-4.9); Lymphocytes Percent Auto 9.3 % (20-40); Mean Corpuscular HGB Conc 31.2 g/dl (31.0-35.0); Mean Corpuscular Hemoglobin 24.2 pg (27.0-33.0); Mean Corpuscular Volume 77.7 fL (80-98); Mean Platelet Volume 9.8 fL (9.4-12.3); Monocytes Absolute Auto 0.7 X10*3/uL (0.1-1.2); Monocytes Percent Auto 7.1 % (2-11); Neutrophils Absolute Auto 7.7 X10*3/uL (2.0-8.3); Neutrophils Percent Auto 79.5 % (45-73); Platelet Count 264 X10*3/uL (160-400); Red Blood Count 4.21 X10*6/uL (4.20-5.50); Red Cell Distribution Width 19.9 % (11.0-16.0); White Blood Count 9.7 X10*3/uL (4.8-10.8)
[2021-07-08 06:24] LABS: Venous Blood Gas Refer to POC result
[2021-07-08 06:30] LABS: Albumin Level 2.8 g/dL (3.5-5.0); Anion Gap 15 (12-20); Blood Urea Nitrogen 18 mg/dL (9-16); Calcium 8.5 mg/dL (8.4-10.2); Carbon Dioxide 26 mmol/L (22-29); Chloride 100 mmol/L (96-108); Estimated Glomerular Filt Rate > 60; Glucose Random 153 mg/dL (60-115); Magnesium 1.9 mg/dL (1.6-2.6); Phosphorus 3.8 mg/dL (2.7-4.5); Potassium 4.5 mmol/L (3.3-5.1); Sodium 136 mmol/L (135-145)
[2021-07-08 07:32] LABS: Glucose, Whole Blood 166 mg/dL (60-115)
[2021-07-08] MEDS: Insulin Lispro 100 UNIT/ML 3 ML VIAL SUBCUT (07:37)
[2021-07-08] MEDS: 0.9 % Sodium Chloride Flush 3 ML SYRINGE IVFLUSH ×2 (07:37→15:27)
[2021-07-08] MEDS: dexmedeTOMIDidine HCL/NS 400 MCG/100 ML INFUS..BTL 12.51 MCG IVCONT (07:38)
[2021-07-08] MEDS: chlordiazePOXIDE HCl 5 MG CAPSULE 10 MG PO (10:08)
[2021-07-08] MEDS: methylPREDNISolone Sod Succ 125 MG/2 ML VIAL 80 MG IVPUSH (10:08)
[2021-07-08] MEDS: Aspirin Enteric Coated 81 MG TABLET.DR PO (10:09)
[2021-07-08] MEDS: Enoxaparin Sodium 40 MG/0.4 ML SYRINGE SUBCUT (10:09)
[2021-07-08] MEDS: Ketamine HCl 500 MG/5 ML VIAL 40 MG IVPUSH (11:11)
--- NOTE | 2021-07-08 11:46 | P.PNCC_ITS ---
Subjective Subjective Date of Service: 07/08/21 Interval History: 41-year-old lady was no past medical history, not vaccinated for COVID-19, admitted on 06/30/2020 his dyspnea and hypoxemia and a one-week history of COVID-19 symptoms. Patient has been initially admitted to [facility] and treated with dexamethasone. Her hospital course was significant for progressive hypoxemia requiring high-flow nasal cannula and 100% non-rebreather. On 07/02/2021 she remained persistently hypoxemic despite utilization of both high-flow nasal cannula at 100% and 100% non-rebreather and at that time was transferred to intensive care unit for noninvasive positive pressure ventilation support. OS significantly worsening anxiety component. Now requiring ketamine drip. Oxygenation slowly improving. Critical Care Time (minutes): 45 Physical Exam Vital Signs: Vital Signs: Last Vital Signs Temp 99.3 F 07/08/21 11:00 Pulse 95 07/08/21 11:00 Resp 38 H 07/08/21 11:00 BP 114/69 07/08/21 11:00 Pulse Ox 90 L 07/08/21 11:00 Body Mass Index 25.7 Const: General: no acute distress, alert and awake Eyes: Sclerae: sclerae normal EOM: EOMs intact bilaterally Neck: Neck: Yes no lymphadenopathy, Yes trachea midline and Yes supple Resp: Effort & Inspection: normal respiratory effort and no respiratory distress Auscultation: crackles (Diffuse bilateral) Cardio: Rate: regular rate Rhythm: regular rhythm Heart sounds: no gallops, no murmurs and no rubs GI: Palpation (GI): Soft to palpation and Other GI palpation findings present ( Nontender) Auscultation: normal bowel sounds Extrem: General: Yes no pedal edema, No clubbing and No cyanosis Objective Data Labs CBC & Chem 7: 07/08/21 05:55 07/08/21 05:55 Labs: Laboratory Results - last 24 hr 07/07/21 07/07/21 07/08/21 16:02 21:26 05:55 WBC 9.7 RBC 4.21 Hgb 10.2 L Hct 32.7 L MCV 77.7 L MCH 24.2 L MCHC 31.2 RDW 19.9 H Plt Count 264 MPV 9.8 Immature Gran % (Auto) 0.7 H Neut % (Auto) 79.5 H Lymph % (Auto) 9.3 L [place] % (Auto) 7.1 Eos % (Auto) 3.3 Baso % (Auto) 0.1 Lymph # (Auto) 0.9 L [place] # (Auto) 0.7 Eos # (Auto) 0.3 Baso # (Auto) 0.0 Abs Immat Gran (auto) 0.07 H Absolute Neuts (auto) 7.7 Absolute Nucleated RBC 0.000 Nucleated RBC % (auto) 0.0 VBG pH VBG pCO2 VBG pO2 VBG HCO3 VBG O2 Saturation VBG Base Excess Sodium Potassium Chloride Carbon Dioxide Anion Gap BUN Creatinine Estim Creat Clear Calc Estimated GFR POC Glucose 209 H 132 H Random Glucose Calcium Phosphorus Magnesium Albumin 07/08/21 07/08/21 07/08/21 05:55 06:00 07:27 WBC RBC Hgb Hct MCV MCH MCHC RDW Plt Count MPV Immature Gran % (Auto) Neut % (Auto) Lymph % (Auto) [place] % (Auto) Eos % (Auto) Baso % (Auto) Lymph # (Auto) [place] # (Auto) Eos # (Auto) Baso # (Auto) Abs Immat Gran (auto) Absolute Neuts (auto) Absolute Nucleated RBC Nucleated RBC % (auto) VBG pH 7.45 H VBG pCO2 42 VBG pO2 37 VBG HCO3 29 H VBG O2 Saturation 49.0 VBG Base Excess 5.4 Sodium 136 Potassium 4.5 Chloride 100 Carbon Dioxide 26 Anion Gap 15 BUN 18 H Creatinine 0.66 Estim Creat Clear Calc 109.0 Estimated GFR > 60 POC Glucose 166 H Random Glucose 153 H Calcium 8.5 Phosphorus 3.8 Magnesium 1.9 Albumin 2.8 L Microbiology Microbiology Results: Microbiology 07/01/21 00:37 Blood - Venous Blood Culture - Final No growth after 5 days. 07/01/21 00:37 Blood - Venous Blood Culture - Final No growth after 5 days. 07/02/21 15:55 Urine clean catch - Urine ortiz top Urine Culture - Final Quality Stroke Does the patient have a stroke diagnosis?: No VTE Prior VTE?: No VTE Risk Level:: Medical - moderate - high VTE Device Contraindication: Treatment Not Indicated VTE Drug Contraindication: N/A - Med Ordered Progress Note: A&P Assessment and plan (1) Anxiety: Status: Acute (2) Acute respiratory distress syndrome (ARDS) due to COVID-19 virus: Status: Acute (3) Acute respiratory failure with hypoxia: Status: Acute Assessment and Plan: Assessment: 41-year-old lady admitted with acute hypoxic respiratory failure secondary to COVID-19 ARDS, now requiring noninvasive positive pressure ventilatory support. Plan: Neuro: With significant general anxiety component now requiring ketamine drip. Cardiac: No acute issues. Pulmonary: Acute hypoxic respiratory failure secondary to COVID-19 ARDS. Slowly improving. Continue to titrate off noninvasive positive pressure ventilatory support as tolerated. Renal: No acute issues. Endo: No acute issues. GI: No acute issues. ID: COVID 19, not a candidate for remdesivir or baricitinib. Continue systemic glucocorticoids. Heme/Onc: No acute issues. Psych: No acute issues. Miscellaneous: No acute issues. Prophylaxis: Lovenox Diet: Regular Critical care time spent: 45 minutes
[2021-07-08 11:49] LABS: Glucose, Whole Blood 148 mg/dL (60-115)
[2021-07-08] MEDS: Ketamine HCl 500 MG in 0.9 % Sodium Chloride 250 ML 17.85 MG IVCONT (11:53)
[2021-07-08] MEDS: fentaNYL citrate/PF 100 MCG/2 ML VIAL IVPUSH (13:15)
[2021-07-08] MEDS: diphenhydrAMINE HCL 50 MG/ML VIAL IVPUSH ×2 (13:31→14:58)
[2021-07-08] MEDS: Midazolam HCl/PF 2 MG/2 ML VIAL IVPUSH (14:30)
[2021-07-08 14:32] LABS: B Type Natriuretic Peptide 15 pg/mL (<100); Troponin-I High Sensitivity < 3.5 ng/L (<3.5-17.0)
[2021-07-08] MEDS: iohexoL 350 MG/ML 100 ML INFUS..BTL IV (15:03)
[2021-07-08] MEDS: Ampicillin Sodium/Sulbactam Na 3 GM in 0.9 % Sodium Chloride 100 ML IV ×2 (15:27→19:48)
[2021-07-08] MEDS: fentaNYL citrate/NS 1,000 MCG/100 ML PLAST..BAG 2.5 MCG IVCONT (15:27)
[2021-07-08 16:18] LABS: Glucose, Whole Blood 171 mg/dL (60-115)
--- NOTE | 2021-07-08 17:05 | PC.NURSE ---
Temp 100.1, WBC 9.7 A&O x3, extremely anxious, difficult to redirect/comfort Precedex gtt D/C'd & started on Ketamine gtt w/ starting bolus @ 1053 1325 - Significant facial & upper chest redness, no change in respiratory status Benedryl 50mg IVP administered twice w/ improvement & Ketamine gtt discontinued SR/ST 100's, no ectopy ; BP stable & WNL Generalized edema ; Continued on Lovenox & Aspirin Second PRN angio obtained LS dim bilaterally, labored, accessory muscle use, RR 30-40's - MD aware Cheat rise and fall equal bilaterally C/O of 10/10 centralized chest pain & right shoulder pain starting overnight EKG obtained - see report, trop negative, BNP 15 CXR & CTA ordered - see reports Started on Unasyn 3g IV & Fentanyl gtt for pain control Switched from 100% high flow/NRB to Bipap 12/6 100% Spo2 better with Bipap 89-91% - okay to continue per MD Abdomen soft, nontender ; two moderate BM's, dark brown Tolerating sips of water well, not eating solids - MD aware POC 140-170's - continued on Humalog SS QID Black patient - urine output WNL Redness noted to bilateral cheeks & buttocks - barrier cream applied Repo q2hr, bathed Family updated by this RN & MD
[2021-07-08 20:36] LABS: Glucose, Whole Blood 141 mg/dL (60-115)
[2021-07-08] MEDS: ondansetron HCL 4 MG/2 ML VIAL IVPUSH (21:27)
[2021-07-08] MEDS: fentaNYL citrate/NS 1,000 MCG/100 ML PLAST..BAG 17.5 MCG IVCONT (22:07)
[2021-07-08] MEDS: carisoprodoL 350 MG TABLET PO (22:08)
[2021-07-08] MEDS: Acetaminophen 325 MG TABLET 650 MG PO (22:09)
[2021-07-09] VITALS (30 sets, daily range): BP systolic 116–149; BP diastolic 64–92; PULSE 73–140; RESP 17–42; TEMP 36.4–37.4; O2SAT 84–133; BMI 24.7
[2021-07-09] MEDS: 0.9 % Sodium Chloride Flush 3 ML SYRINGE IVFLUSH ×3 (01:59→20:43)
[2021-07-09] MEDS: fentaNYL citrate/NS 1,000 MCG/100 ML PLAST..BAG 20 MCG IVCONT (03:31)
[2021-07-09] MEDS: Ampicillin Sodium/Sulbactam Na 3 GM in 0.9 % Sodium Chloride 100 ML IV ×4 (03:36→20:43)
[2021-07-09 05:32] LABS: MANUAL DIFF FLAG NO
[2021-07-09 05:35] LABS: Basophils Percent Auto 0.1 % (0-2); Eosinophils Percent Auto 0.2 % (0-4); Hematocrit 37.2 % (37-47); Hemoglobin 11.1 g/dl (12.0-16.0); Imm Gran Abs Auto 0.27 X10*3/uL (0.00-0.03); Imm Gran Pct Auto 1.9 % (0.0-0.4); Lymphocytes Absolute Auto 0.7 X10*3/uL (1.2-4.9); Lymphocytes Percent Auto 5.2 % (20-40); Mean Corpuscular HGB Conc 29.8 g/dl (31.0-35.0); Mean Corpuscular Hemoglobin 23.7 pg (27.0-33.0); Mean Corpuscular Volume 79.5 fL (80-98); Mean Platelet Volume 9.5 fL (9.4-12.3); Monocytes Absolute Auto 1.2 X10*3/uL (0.1-1.2); Monocytes Percent Auto 8.7 % (2-11); Neutrophils Absolute Auto 11.7 X10*3/uL (2.0-8.3); Neutrophils Percent Auto 83.9 % (45-73); Platelet Count 425 X10*3/uL (160-400); Red Blood Count 4.68 X10*6/uL (4.20-5.50); Red Cell Distribution Width 20.3 % (11.0-16.0)
[2021-07-09 05:37] LABS: VBG Base Excess -2.4 mmol/L; VBG HCO3 23 mmol/L (22-26); VBG pCO2 42 mmHg; VBG pH 7.34 (7.32-7.43); VBG pO2 87 mmHg
[2021-07-09 05:38] LABS: Venous Blood Gas Refer to POC result
[2021-07-09 05:52] LABS: Albumin Level 3.1 g/dL (3.5-5.0); Anion Gap 20 (12-20); Blood Urea Nitrogen 16 mg/dL (9-16); Calcium 8.8 mg/dL (8.4-10.2); Carbon Dioxide 21 mmol/L (22-29); Chloride 104 mmol/L (96-108); Creatinine Clr Calc Pharmacy 112.4; Estimated Glomerular Filt Rate > 60; Glucose Random 211 mg/dL (60-115); Phosphorus 4.2 mg/dL (2.7-4.5); Potassium 4.6 mmol/L (3.3-5.1); Sodium 140 mmol/L (135-145)
[2021-07-09 07:39] LABS: Glucose, Whole Blood 230 mg/dL (60-115)
[2021-07-09] MEDS: fentaNYL citrate/NS 1,000 MCG/100 ML PLAST..BAG 17.5 MCG IVCONT (08:26)
[2021-07-09] MEDS: Enoxaparin Sodium 40 MG/0.4 ML SYRINGE SUBCUT (08:26)
[2021-07-09] MEDS: Insulin Lispro 100 UNIT/ML 3 ML VIAL SUBCUT ×4 (08:26→20:42)
[2021-07-09] MEDS: Aspirin Enteric Coated 81 MG TABLET.DR PO (08:27)
[2021-07-09] MEDS: methylPREDNISolone Sod Succ 125 MG/2 ML VIAL 40 MG IVPUSH (08:27)
[2021-07-09 11:39] LABS: Glucose, Whole Blood 229 mg/dL (60-115)
--- NOTE | 2021-07-09 12:08 | PM.CCPN ---
Subjective Subjective Date of Service: 07/09/21 Interval History: 41-year-old lady was no past medical history, not vaccinated for COVID-19, admitted on 06/30/2020 his dyspnea and hypoxemia and a one-week history of COVID-19 symptoms. Patient has been initially admitted to [facility] and treated with dexamethasone. Her hospital course was significant for progressive hypoxemia requiring high-flow nasal cannula and 100% non-rebreather. On 07/02/2021 she remained persistently hypoxemic despite utilization of both high-flow nasal cannula at 100% and 100% non-rebreather and at that time was transferred to intensive care unit for noninvasive positive pressure ventilation support. Oxygenation improving slowly, however hospital course is further complicated by pneumomediastinum. No events overnight. Critical Care Time (minutes): 45 Physical Exam Vital Signs: Vital Signs: Last Vital Signs Temp 98.1 F 07/09/21 11:00 Pulse 111 H 07/09/21 11:00 Resp 22 H 07/09/21 11:19 BP 142/88 H 07/09/21 11:00 Pulse Ox 87 L 07/09/21 11:00 Body Mass Index 24.7 Const: General: no acute distress, alert and awake Eyes: Sclerae: sclerae normal EOM: EOMs intact bilaterally Neck: Neck: Yes no lymphadenopathy, Yes trachea midline and Yes supple Resp: Effort & Inspection: normal respiratory effort and no respiratory distress Auscultation: crackles (Diffuse bilateral) Cardio: Rate: regular rate Rhythm: regular rhythm Heart sounds: no gallops, no murmurs and no rubs GI: Palpation (GI): Soft to palpation and Other GI palpation findings present ( Nontender) Auscultation: normal bowel sounds Extrem: General: Yes no pedal edema, No clubbing and No cyanosis Objective Data Labs CBC & Chem 7: 07/09/21 05:22 07/09/21 05:22 Labs: Laboratory Results - last 24 hr 07/08/21 07/08/21 07/08/21 14:03 16:13 19:54 WBC RBC Hgb Hct MCV MCH MCHC RDW Plt Count MPV Immature Gran % (Auto) Neut % (Auto) Lymph % (Auto) [place] % (Auto) Eos % (Auto) Baso % (Auto) Lymph # (Auto) [place] # (Auto) Eos # (Auto) Baso # (Auto) Abs Immat Gran (auto) Absolute Neuts (auto) Absolute Nucleated RBC Nucleated RBC % (auto) VBG pH VBG pCO2 VBG pO2 VBG HCO3 VBG O2 Saturation VBG Base Excess Sodium Potassium Chloride Carbon Dioxide Anion Gap BUN Creatinine Estim Creat Clear Calc Estimated GFR POC Glucose 171 H 141 H Random Glucose Calcium Phosphorus Magnesium Troponin I High Sens < 3.5 B-Natriuretic Peptide 15 Albumin 07/09/21 07/09/21 07/09/21 05:22 05:22 05:32 WBC 14.0 H RBC 4.68 Hgb 11.1 L Hct 37.2 MCV 79.5 L MCH 23.7 L MCHC 29.8 L RDW 20.3 H Plt Count 425 H D MPV 9.5 Immature Gran % (Auto) 1.9 H Neut % (Auto) 83.9 H Lymph % (Auto) 5.2 L [place] % (Auto) 8.7 Eos % (Auto) 0.2 Baso % (Auto) 0.1 Lymph # (Auto) 0.7 L [place] # (Auto) 1.2 Eos # (Auto) 0.0 Baso # (Auto) 0.0 Abs Immat Gran (auto) 0.27 H Absolute Neuts (auto) 11.7 H Absolute Nucleated RBC 0.000 Nucleated RBC % (auto) 0.0 VBG pH 7.34 VBG pCO2 42 VBG pO2 87 VBG HCO3 23 VBG O2 Saturation 96.0 VBG Base Excess -2.4 Sodium 140 Potassium 4.6 Chloride 104 Carbon Dioxide 21 L Anion Gap 20 BUN 16 Creatinine 0.64 Estim Creat Clear Calc 112.4 Estimated GFR > 60 POC Glucose Random Glucose 211 H Calcium 8.8 Phosphorus 4.2 Magnesium 2.0 Troponin I High Sens B-Natriuretic Peptide Albumin 3.1 L 07/09/21 07/09/21 07:35 11:35 WBC RBC Hgb Hct MCV MCH MCHC RDW Plt Count MPV Immature Gran % (Auto) Neut % (Auto) Lymph % (Auto) [place] % (Auto) Eos % (Auto) Baso % (Auto) Lymph # (Auto) [place] # (Auto) Eos # (Auto) Baso # (Auto) Abs Immat Gran (auto) Absolute Neuts (auto) Absolute Nucleated RBC Nucleated RBC % (auto) VBG pH VBG pCO2 VBG pO2 VBG HCO3 VBG O2 Saturation VBG Base Excess Sodium Potassium Chloride Carbon Dioxide Anion Gap BUN Creatinine Estim Creat Clear Calc Estimated GFR POC Glucose 230 H 229 H Random Glucose Calcium Phosphorus Magnesium Troponin I High Sens B-Natriuretic Peptide Albumin Microbiology Microbiology Results: Microbiology 07/01/21 00:37 Blood - Venous Blood Culture - Final No growth after 5 days. 07/01/21 00:37 Blood - Venous Blood Culture - Final No growth after 5 days. 07/02/21 15:55 Urine clean catch - Urine ortiz top Urine Culture - Final Quality Stroke Does the patient have a stroke diagnosis?: No VTE Prior VTE?: No VTE Risk Level:: Medical - moderate - high VTE Device Contraindication: Treatment Not Indicated VTE Drug Contraindication: N/A - Med Ordered Progress Note: A&P Assessment and plan (1) Pneumomediastinum: Status: Acute Assessment and Plan: Assessment: 41-year-old lady admitted with acute hypoxic respiratory failure secondary to COVID-19 ARDS, now requiring noninvasive positive pressure ventilatory support. Plan: Neuro: With significant general anxiety component. Continue with anxiolytics. Cardiac: No acute issues. Pulmonary: Acute hypoxic respiratory failure secondary to COVID-19 ARDS. Slowly improving. Now tolerating 100% non-rebreather. Further complicated by pneumomediastinum. Renal: No acute issues. Endo: No acute issues. GI: No acute issues. ID: COVID 19, not a candidate for remdesivir or baricitinib. Continue systemic glucocorticoids. Heme/Onc: No acute issues. Psych: No acute issues. Miscellaneous: No acute issues. Prophylaxis: Lovenox Diet: Regular Critical care time spent: 45 minutes (2) Acute respiratory distress syndrome (ARDS) due to COVID-19 virus: Status: Acute (3) Acute respiratory failure with hypoxia: Status: Acute
[2021-07-09] MEDS: fentaNYL 75 MCG PATCH.TD72 TRANSDERMA (12:32)
[2021-07-09] MEDS: fentaNYL citrate/PF 100 MCG/2 ML VIAL 25 MCG IVPUSH (16:31)
[2021-07-09 16:38] LABS: Glucose, Whole Blood 244 mg/dL (60-115)
--- NOTE | 2021-07-09 17:22 | PC.NURSE ---
1722 left upper outer arm 75mcg patch removed witness by SOLOMON PARSONS.
[2021-07-09] MEDS: fentaNYL citrate/PF 100 MCG/2 ML VIAL 50 MCG IVPUSH ×2 (17:25→22:42)
[2021-07-09] MEDS: fentaNYL 100 MCG PATCH.TD72 TRANSDERMA (17:26)
[2021-07-09] MEDS: fentaNYL 25 MCG PATCH.TD72 TRANSDERMA (19:16)
[2021-07-09] MEDS: Acetaminophen 325 MG TABLET 650 MG PO (19:50)
[2021-07-09 20:41] LABS: Glucose, Whole Blood 171 mg/dL (60-115)
[2021-07-09] MEDS: Midazolam HCl/PF 2 MG/2 ML VIAL 0.5 MG IVPUSH (21:12)
[2021-07-09] MEDS: ondansetron HCL 4 MG/2 ML VIAL IVPUSH (23:14)
[2021-07-10] VITALS (30 sets, daily range): BP systolic 114–154; BP diastolic 66–92; PULSE 69–117; RESP 17–40; TEMP 36.7–37.3; O2SAT 62–95; BMI 24.7
[2021-07-10 01:12] LABS: Glucose, Whole Blood 119 mg/dL (60-115)
[2021-07-10] MEDS: Ampicillin Sodium/Sulbactam Na 3 GM in 0.9 % Sodium Chloride 100 ML IV ×4 (02:49→20:48)
[2021-07-10 05:45] LABS: MANUAL DIFF FLAG NO
[2021-07-10 05:50] LABS: VBG HCO3 30 mmol/L (22-26); VBG pCO2 45 mmHg; VBG pH 7.43 (7.32-7.43); VBG pO2 57 mmHg
[2021-07-10 05:51] LABS: Venous Blood Gas Refer to POC result
[2021-07-10 05:55] LABS: Basophils Percent Auto 0.1 % (0-2); Eosinophils Absolute Auto 0.4 X10*3/uL (0.0-0.4); Eosinophils Percent Auto 3.2 % (0-4); Hematocrit 34.4 % (37-47); Hemoglobin 10.3 g/dl (12.0-16.0); Imm Gran Pct Auto 1.9 % (0.0-0.4); Lymphocytes Absolute Auto 0.9 X10*3/uL (1.2-4.9); Lymphocytes Percent Auto 8.2 % (20-40); Mean Corpuscular HGB Conc 29.9 g/dl (31.0-35.0); Mean Corpuscular Volume 80.2 fL (80-98); Mean Platelet Volume 9.1 fL (9.4-12.3); Monocytes Absolute Auto 0.8 X10*3/uL (0.1-1.2); Monocytes Percent Auto 7.3 % (2-11); Neutrophils Absolute Auto 8.5 X10*3/uL (2.0-8.3); Neutrophils Percent Auto 79.3 % (45-73); Platelet Count 362 X10*3/uL (160-400); Red Blood Count 4.29 X10*6/uL (4.20-5.50); Red Cell Distribution Width 20.4 % (11.0-16.0); White Blood Count 10.8 X10*3/uL (4.8-10.8)
[2021-07-10 06:04] LABS: Anion Gap 15 (12-20); Blood Urea Nitrogen 13 mg/dL (9-16); Calcium 8.7 mg/dL (8.4-10.2); Carbon Dioxide 26 mmol/L (22-29); Chloride 103 mmol/L (96-108); Creatinine Clr Calc Pharmacy 106.3; Estimated Glomerular Filt Rate > 60; Glucose Random 183 mg/dL (60-115); Magnesium 1.8 mg/dL (1.6-2.6); Phosphorus 2.7 mg/dL (2.7-4.5); Potassium 4.2 mmol/L (3.3-5.1); Sodium 140 mmol/L (135-145)
--- NOTE | 2021-07-10 06:54 | PC.NURSE ---
LATE ENTRY FOR 07/09 0600: Assumed care of pt at 1900. Pt was extremely anxious at that time. She was on Fentanyl drip at 100 mcg/hr. This drip was titrated up to 200 mcg/hr. Pt was still restless and pulling off bipap. She was stating she was hungry. One bottle of glucerna given to pt with a straw through the side of the bipap mask. O2 sat may go down to low 80's but comes up when mask reapplied. Pt settled down after having po liquids and fell asleep.
[2021-07-10 07:24] LABS: Glucose, Whole Blood 180 mg/dL (60-115)
[2021-07-10] MEDS: Insulin Lispro 100 UNIT/ML 3 ML VIAL SUBCUT ×2 (07:48→18:24)
[2021-07-10] MEDS: methylPREDNISolone Sod Succ 125 MG/2 ML VIAL 40 MG IVPUSH (07:48)
[2021-07-10] MEDS: Enoxaparin Sodium 40 MG/0.4 ML SYRINGE SUBCUT (07:48)
[2021-07-10] MEDS: Aspirin Enteric Coated 81 MG TABLET.DR PO (07:48)
[2021-07-10] MEDS: Midazolam HCl/PF 2 MG/2 ML VIAL 0.5 MG IVPUSH ×2 (09:30→13:59)
[2021-07-10] MEDS: Acetaminophen 325 MG TABLET 650 MG PO (09:31)
[2021-07-10] MEDS: ondansetron HCL 4 MG/2 ML VIAL IVPUSH ×2 (09:31→13:59)
[2021-07-10 09:38] LABS: Glucose, Whole Blood 262 mg/dL (60-115)
--- NOTE | 2021-07-10 10:04 | PM.CCPN ---
Subjective Subjective Date of Service: 07/10/21 Interval History: ICU day 9 for acute hypoxic respiratory failure, COVID-19 ARDS, pneumomediastinum. 41-year-old lady was no past medical history, not vaccinated for COVID-19, admitted on 06/30/2020 his dyspnea and hypoxemia and a one-week history of COVID-19 symptoms. Patient has been initially admitted to [facility] and treated with dexamethasone. Her hospital course was significant for progressive hypoxemia requiring high-flow nasal cannula and 100% non-rebreather. On 07/02/2021 she remained persistently hypoxemic despite utilization of both high-flow nasal cannula at 100% and 100% non-rebreather and at that time was transferred to intensive care unit for noninvasive positive pressure ventilation support. Oxygenation improving slowly, however hospital course is further complicated by pneumomediastinum. No events overnight. Critical Care Time (minutes): 45 Physical Exam Vital Signs: Vital Signs: Last Vital Signs Temp 98.8 F 07/10/21 08:00 Pulse 112 H 07/10/21 09:00 Resp 28 H 07/10/21 09:00 BP 136/85 07/10/21 09:00 Pulse Ox 87 L 07/10/21 09:00 Body Mass Index 24.7 Const: General: no acute distress, alert and lethargic (Arousable) Orientation/consciousness: lethargic (Arousable) Eyes: Sclerae: sclerae normal EOM: EOMs intact bilaterally Neck: Neck: Yes no lymphadenopathy, Yes trachea midline and Yes supple Resp: Effort & Inspection: normal respiratory effort and no respiratory distress Auscultation: crackles (Diffuse bilateral) Cardio: Rate: regular rate Rhythm: regular rhythm Heart sounds: no gallops, no murmurs and no rubs GI: Palpation (GI): Soft to palpation and Other GI palpation findings present ( Nontender) Auscultation: normal bowel sounds Extrem: General: Yes no pedal edema, No clubbing and No cyanosis Objective Data Labs CBC & Chem 7: 07/10/21 05:41 07/10/21 05:41 Labs: Laboratory Results - last 24 hr 07/09/21 07/09/21 07/09/21 11:35 16:09 20:36 WBC RBC Hgb Hct MCV MCH MCHC RDW Plt Count MPV Immature Gran % (Auto) Neut % (Auto) Lymph % (Auto) Hart % (Auto) Eos % (Auto) Baso % (Auto) Lymph # (Auto) [place] # (Auto) Eos # (Auto) Baso # (Auto) Abs Immat Gran (auto) Absolute Neuts (auto) Absolute Nucleated RBC Nucleated RBC % (auto) VBG pH VBG pCO2 VBG pO2 VBG HCO3 VBG O2 Saturation VBG Base Excess Sodium Potassium Chloride Carbon Dioxide Anion Gap BUN Creatinine Estim Creat Clear Calc Estimated GFR POC Glucose 229 H 244 H 171 H Random Glucose Calcium Phosphorus Magnesium Albumin 07/10/21 07/10/21 07/10/21 00:28 05:41 05:41 WBC 10.8 RBC 4.29 Hgb 10.3 L Hct 34.4 L MCV 80.2 MCH 24.0 L MCHC 29.9 L RDW 20.4 H Plt Count 362 MPV 9.1 L Immature Gran % (Auto) 1.9 H Neut % (Auto) 79.3 H Lymph % (Auto) 8.2 L [place] % (Auto) 7.3 Eos % (Auto) 3.2 Baso % (Auto) 0.1 Lymph # (Auto) 0.9 L [place] # (Auto) 0.8 Eos # (Auto) 0.4 Baso # (Auto) 0.0 Abs Immat Gran (auto) 0.20 H Absolute Neuts (auto) 8.5 H Absolute Nucleated RBC 0.000 Nucleated RBC % (auto) 0.0 VBG pH VBG pCO2 VBG pO2 VBG HCO3 VBG O2 Saturation VBG Base Excess Sodium 140 Potassium 4.2 Chloride 103 Carbon Dioxide 26 Anion Gap 15 BUN 13 Creatinine 0.62 Estim Creat Clear Calc 106.3 Estimated GFR > 60 POC Glucose 119 H Random Glucose 183 H Calcium 8.7 Phosphorus 2.7 Magnesium 1.8 Albumin 3.0 L 07/10/21 07/10/21 07/10/21 05:44 07:16 09:35 WBC RBC Hgb Hct MCV MCH MCHC RDW Plt Count MPV Immature Gran % (Auto) Neut % (Auto) Lymph % (Auto) Hart % (Auto) Eos % (Auto) Baso % (Auto) Lymph # (Auto) [place] # (Auto) Eos # (Auto) Baso # (Auto) Abs Immat Gran (auto) Absolute Neuts (auto) Absolute Nucleated RBC Nucleated RBC % (auto) VBG pH 7.43 VBG pCO2 45 VBG pO2 57 VBG HCO3 30 H VBG O2 Saturation 84.0 VBG Base Excess 6.0 Sodium Potassium Chloride Carbon Dioxide Anion Gap BUN Creatinine Estim Creat Clear Calc Estimated GFR POC Glucose 180 H 262 H Random Glucose Calcium Phosphorus Magnesium Albumin Microbiology Microbiology Results: Microbiology 07/01/21 00:37 Blood - Venous Blood Culture - Final No growth after 5 days. 07/01/21 00:37 Blood - Venous Blood Culture - Final No growth after 5 days. 07/02/21 15:55 Urine clean catch - Urine ortiz top Urine Culture - Final Quality Stroke Does the patient have a stroke diagnosis?: No VTE Prior VTE?: No VTE Risk Level:: Medical - moderate - high VTE Device Contraindication: Treatment Not Indicated VTE Drug Contraindication: N/A - Med Ordered Progress Note: A&P Assessment and plan (1) Pneumomediastinum: Status: Acute (2) Acute respiratory distress syndrome (ARDS) due to COVID-19 virus: Status: Acute (3) Acute respiratory failure with hypoxia: Status: Acute Assessment and Plan: Assessment: 41-year-old lady admitted with acute hypoxic respiratory failure secondary to COVID-19 ARDS, now requiring noninvasive positive pressure ventilatory support. Plan: Neuro: With significant general anxiety component. Continue with anxiolytics. Cardiac: No acute issues. Pulmonary: Acute hypoxic respiratory failure secondary to COVID-19 ARDS. Further complicated by pneumomediastinum. Continue to titrate of supplemental oxygen as tolerated. Renal: No acute issues. Endo: No acute issues. GI: No acute issues. ID: COVID [id number], not a candidate for remdesivir or baricitinib. Continue systemic glucocorticoids. Heme/Onc: No acute issues. Psych: No acute issues. Miscellaneous: No acute issues. Prophylaxis: Lovenox Diet: Regular Critical care time spent: 45 minutes
[2021-07-10 11:31] LABS: Glucose, Whole Blood 261 mg/dL (60-115)
--- NOTE | 2021-07-10 15:08 | MHC.CM.PN ---
Pt continues on NIPPV in ICU secondary to unvaccinated COVID infection. Pt only has HSN insurance and is not eligible for a connector plan or addition to her spouses plan until open enrollment. [facility] [place]. D/C needs are unknown at this time however, d/t lack of payor, she is not eligible for STR or any home services and would need to pay privately. CM to follow.
[2021-07-10 16:19] LABS: Glucose, Whole Blood 253 mg/dL (60-115)
--- NOTE | 2021-07-10 17:28 | PC.NURSE ---
assumed care at 0700. pt w covid pna and pneumomediastinum in icu on high flow supplemented by non rebreather for 02 sat goal ^85%. pt has maintained sat anywhere from 89-96% on high flow w nb depending on activity. pt has reported feeling less restless today and overall better . pt calm and cooperative throughout day w this rn. has needed encouragement to eat, afternoon insulin held d/t not wanting to eat . pt bedpanned once this shift w 1 assist, loose brown stool. vs have remained otherwise stable throughout day, updated on plan of care and all questions answered at this time. wctm for dc needs.
[2021-07-10 20:21] LABS: Glucose, Whole Blood 135 mg/dL (60-115)
--- NOTE | 2021-07-10 21:51 | PC.NURSE ---
Assumed care at 1900. Pt has been resting quietly, HOB at 30 degrees, shallow resp but only minimal work of breathing noted. Skin flush, warm, dry. Pt has not been awake/alert enough to remove O2 delievery and remains in the mid 80's to lowe 90's (83-91%) on high flow at 94% and NRB. Sitter remains just outside of room.
[2021-07-10] MEDS: 0.9 % Sodium Chloride Flush 3 ML SYRINGE IVFLUSH (23:17)
[2021-07-10] MEDS: fentaNYL citrate/PF 100 MCG/2 ML VIAL 50 MCG IVPUSH (23:25)
[2021-07-11] VITALS (30 sets, daily range): BP systolic 115–188; BP diastolic 62–89; PULSE 65–120; RESP 16–48; TEMP 36.8–37.7; O2SAT 79–99; BMI 24.2
[2021-07-11] MEDS: Ampicillin Sodium/Sulbactam Na 3 GM in 0.9 % Sodium Chloride 100 ML IV ×2 (02:07→08:46)
[2021-07-11] MEDS: fentaNYL citrate/PF 100 MCG/2 ML VIAL 50 MCG IVPUSH ×3 (04:31→23:26)
[2021-07-11 05:33] LABS: VBG HCO3 36 mmol/L (22-26); VBG pCO2 47 mmHg; VBG pH 7.49 (7.32-7.43); VBG pO2 39 mmHg
[2021-07-11 05:44] LABS: MANUAL DIFF FLAG NO
[2021-07-11 05:50] LABS: Basophils Percent Auto 0.2 % (0-2); Eosinophils Absolute Auto 0.5 X10*3/uL (0.0-0.4); Hematocrit 34.4 % (37-47); Hemoglobin 10.2 g/dl (12.0-16.0); Imm Gran Abs Auto 0.34 X10*3/uL (0.00-0.03); Imm Gran Pct Auto 2.6 % (0.0-0.4); Lymphocytes Percent Auto 7.3 % (20-40); Mean Corpuscular HGB Conc 29.7 g/dl (31.0-35.0); Mean Corpuscular Hemoglobin 23.8 pg (27.0-33.0); Mean Corpuscular Volume 80.4 fL (80-98); Mean Platelet Volume 9.5 fL (9.4-12.3); Monocytes Absolute Auto 0.8 X10*3/uL (0.1-1.2); Monocytes Percent Auto 5.7 % (2-11); Neutrophils Absolute Auto 10.6 X10*3/uL (2.0-8.3); Neutrophils Percent Auto 80.2 % (45-73); Platelet Count 367 X10*3/uL (160-400); Red Blood Count 4.28 X10*6/uL (4.20-5.50); Red Cell Distribution Width 19.9 % (11.0-16.0); Venous Blood Gas Refer to POC result; White Blood Count 13.2 X10*3/uL (4.8-10.8)
[2021-07-11 06:14] LABS: Anion Gap 12 (12-20); Blood Urea Nitrogen 11 mg/dL (9-16); Calcium 9.1 mg/dL (8.4-10.2); Carbon Dioxide 32 mmol/L (22-29); Chloride 100 mmol/L (96-108); Creatinine Clr Calc Pharmacy 106.3; Estimated Glomerular Filt Rate > 60; Glucose Random 167 mg/dL (60-115); Magnesium 1.8 mg/dL (1.6-2.6); Phosphorus 3.1 mg/dL (2.7-4.5); Potassium 4.1 mmol/L (3.3-5.1); Sodium 140 mmol/L (135-145)
[2021-07-11 07:27] LABS: Glucose, Whole Blood 191 mg/dL (60-115)
[2021-07-11] MEDS: Insulin Lispro 100 UNIT/ML 3 ML VIAL SUBCUT ×3 (08:44→17:11)
[2021-07-11] MEDS: Enoxaparin Sodium 40 MG/0.4 ML SYRINGE SUBCUT (08:45)
[2021-07-11] MEDS: Aspirin Enteric Coated 81 MG TABLET.DR PO (08:45)
[2021-07-11] MEDS: methylPREDNISolone Sod Succ 125 MG/2 ML VIAL 40 MG IVPUSH (08:45)
[2021-07-11] MEDS: 0.9 % Sodium Chloride Flush 3 ML SYRINGE IVFLUSH ×3 (08:45→20:29)
--- NOTE | 2021-07-11 10:21 | MHC.CM.PN ---
PATIENT NOT APPROPRIATE FOR DISCHARGE PLAN CONVERSATION AT THIS TIME. CASE MANAGEMENT CONTINUING TO FOLLOW.
[2021-07-11 11:18] LABS: Glucose, Whole Blood 182 mg/dL (60-115)
--- NOTE | 2021-07-11 11:57 | PC.NURSE ---
Addendum entered by Claritza Huang RN 07/11/21 12:04: Bipap settings are 12/6 and 100%. Sats 91%. Per main sats 88% or above. Original Note: Pt's sats in 70s on 95% and 55liters of high flow with a NRB. Different positions in bed trailed including turning to both sides and fentanyl given for discomfort without any improvement. Bipap placed on patient by RT with sats now 90%. Pt does appear restful at this time. is aware.
--- NOTE | 2021-07-11 12:11 | MHC.CLN ---
F/U PT WITH INCREASED NUTRITION RISK R/T POOR PO X 7 DAYS DIET RX: REGULAR-APPROPRIATE PT RECEIVING ENSURE BID TO INCREASE KCALS SUPPLEMENT PROVIDES 700KCALS (33% EST KCAL NEEDS), 40G PROTEIN (54% EST PROTEIN) PT CONSUMING VARIABLE AMOUNTS OF MOST MEALS R/T OXYGEN REQUIREMENTS NOTED FRAGILE SKIN MONITOR PO INTAKE CLOSELY CAN PROVIDE PPN IF NEEDED; D10 AA4.25 AT 30ML/HR TO PROVIDE 367KCALS, 31G PROTEIN
--- NOTE | 2021-07-11 12:54 | P.PNCC_ITS ---
Subjective Subjective Date of Service: 07/11/21 Interval History: 41-year-old female with severe bilateral COVID-19 pneumonitis and acute hypoxic respiratory failure from ARDS which had been complicated by spontaneous pneumomediastinum which on today's chest film looked somewhat improved however we needed to progress her back to BiPAP at 12/6 in order to relieve oxygen saturations that were in the high 70s bringing her back to approximately 90% No positive culture data more new infiltrate etc. to justify the use of the Unasyn antibiotic so that is being held at this point and will use p.r.n. fentanyl to keep her compliant with the BiPAP Critical Care Time (minutes): 45 Physical Exam Vital Signs: Vital Signs: Last Vital Signs Temp 99.7 F 07/11/21 12:09 Pulse 84 07/11/21 12:09 Resp 32 H 07/11/21 12:09 BP 134/83 07/11/21 12:09 Pulse Ox 92 07/11/21 12:09 Body Mass Index 24.2 Oriented x3 and nonfocal neurologically Cardiac exam with no neck vein distension and good bilateral carotid upstrokes Abdomen benign with good bowel sounds and soft nontender Chest with diminished bilateral breath sounds due to diminish depth of respiration No skin sores no livedo Objective Data Labs CBC & Chem 7: 07/11/21 05:25 07/11/21 05:25 Labs: Laboratory Results - last 24 hr 07/10/21 07/10/21 07/11/21 16:12 20:16 05:25 WBC 13.2 H RBC 4.28 Hgb 10.2 L Hct 34.4 L MCV 80.4 MCH 23.8 L MCHC 29.7 L RDW 19.9 H Plt Count 367 MPV 9.5 Immature Gran % (Auto) 2.6 H Neut % (Auto) 80.2 H Lymph % (Auto) 7.3 L [place] % (Auto) 5.7 Eos % (Auto) 4.0 Baso % (Auto) 0.2 Lymph # (Auto) 1.0 L [place] # (Auto) 0.8 Eos # (Auto) 0.5 H Baso # (Auto) 0.0 Abs Immat Gran (auto) 0.34 H Absolute Neuts (auto) 10.6 H Absolute Nucleated RBC 0.000 Nucleated RBC % (auto) 0.0 VBG pH VBG pCO2 VBG pO2 VBG HCO3 VBG O2 Saturation VBG Base Excess Sodium Potassium Chloride Carbon Dioxide Anion Gap BUN Creatinine Estim Creat Clear Calc Estimated GFR POC Glucose 253 H 135 H Random Glucose Calcium Phosphorus Magnesium Albumin 07/11/21 07/11/21 07/11/21 05:25 05:27 07:20 WBC RBC Hgb Hct MCV MCH MCHC RDW Plt Count MPV Immature Gran % (Auto) Neut % (Auto) Lymph % (Auto) [place] % (Auto) Eos % (Auto) Baso % (Auto) Lymph # (Auto) [place] # (Auto) Eos # (Auto) Baso # (Auto) Abs Immat Gran (auto) Absolute Neuts (auto) Absolute Nucleated RBC Nucleated RBC % (auto) VBG pH 7.49 H VBG pCO2 47 VBG pO2 39 VBG HCO3 36 H VBG O2 Saturation 62.0 VBG Base Excess 12.0 Sodium 140 Potassium 4.1 Chloride 100 Carbon Dioxide 32 H Anion Gap 12 BUN 11 Creatinine 0.62 Estim Creat Clear Calc 106.3 Estimated GFR > 60 POC Glucose 191 H Random Glucose 167 H Calcium 9.1 Phosphorus 3.1 Magnesium 1.8 Albumin 3.0 L 07/11/21 11:13 WBC RBC Hgb Hct MCV MCH MCHC RDW Plt Count MPV Immature Gran % (Auto) Neut % (Auto) Lymph % (Auto) [place] % (Auto) Eos % (Auto) Baso % (Auto) Lymph # (Auto) [place] # (Auto) Eos # (Auto) Baso # (Auto) Abs Immat Gran (auto) Absolute Neuts (auto) Absolute Nucleated RBC Nucleated RBC % (auto) VBG pH VBG pCO2 VBG pO2 VBG HCO3 VBG O2 Saturation VBG Base Excess Sodium Potassium Chloride Carbon Dioxide Anion Gap BUN Creatinine Estim Creat Clear Calc Estimated GFR POC Glucose 182 H Random Glucose Calcium Phosphorus Magnesium Albumin Microbiology Microbiology Results: Microbiology 07/01/21 00:37 Blood - Venous Blood Culture - Final No growth after 5 days. 07/01/21 00:37 Blood - Venous Blood Culture - Final No growth after 5 days. 07/02/21 15:55 Urine clean catch - Urine ortiz top Urine Culture - Final Quality Stroke Does the patient have a stroke diagnosis?: No VTE Prior VTE?: No VTE Risk Level:: Medical - moderate - high VTE Device Contraindication: Treatment Not Indicated VTE Drug Contraindication: N/A - Med Ordered Progress Note: A&P Assessment and plan (1) Pneumomediastinum: Status: Acute (2) Anxiety: Status: Acute (3) Acute respiratory distress syndrome (ARDS) due to COVID-19 virus: Status: Acute (4) Acute respiratory failure with hypoxia: Status: Acute (5) Pneumonia due to COVID-19 virus: Status: Acute (6) Breast mass: Status: Acute Assessment and Plan: Plan is to follow on the BiPAP and clearly if respiratory distress and in the face of progressive hypoxia in [place] next step only is intubation at this point
[2021-07-11 17:17] LABS: Glucose, Whole Blood 216 mg/dL (60-115)
--- NOTE | 2021-07-11 18:44 | PC.NURSE ---
Pt remains sleeping/restful on bipap / at 100%. Sats 98-99% at this time.
[2021-07-11 20:09] LABS: Glucose, Whole Blood 135 mg/dL (60-115)
[2021-07-12] VITALS (31 sets, daily range): BP systolic 112–142; BP diastolic 69–86; PULSE 72–132; RESP 22–42; TEMP 37.1–37.6; O2SAT 84–100; BMI 24.3
[2021-07-12 05:32] LABS: VBG Base Excess 7.7 mmol/L; VBG HCO3 32 mmol/L (22-26); VBG pCO2 45 mmHg; VBG pH 7.46 (7.32-7.43); VBG pO2 45 mmHg
[2021-07-12 05:32] LABS: MANUAL DIFF FLAG NO
[2021-07-12 05:37] LABS: Basophils Percent Auto 0.2 % (0-2); Eosinophils Absolute Auto 0.2 X10*3/uL (0.0-0.4); Eosinophils Percent Auto 1.9 % (0-4); Hemoglobin 9.9 g/dl (12.0-16.0); Imm Gran Abs Auto 0.22 X10*3/uL (0.00-0.03); Imm Gran Pct Auto 1.9 % (0.0-0.4); Lymphocytes Absolute Auto 0.9 X10*3/uL (1.2-4.9); Lymphocytes Percent Auto 7.8 % (20-40); Mean Corpuscular Hemoglobin 23.9 pg (27.0-33.0); Mean Corpuscular Volume 79.7 fL (80-98); Mean Platelet Volume 9.5 fL (9.4-12.3); Monocytes Absolute Auto 0.6 X10*3/uL (0.1-1.2); Monocytes Percent Auto 5.1 % (2-11); Neutrophils Absolute Auto 9.9 X10*3/uL (2.0-8.3); Neutrophils Percent Auto 83.1 % (45-73); Platelet Count 343 X10*3/uL (160-400); Red Blood Count 4.14 X10*6/uL (4.20-5.50); Red Cell Distribution Width 19.8 % (11.0-16.0); White Blood Count 11.9 X10*3/uL (4.8-10.8)
[2021-07-12 05:41] LABS: Venous Blood Gas Refer to POC result
[2021-07-12 06:04] LABS: D Dimer 1824 NG/ML
[2021-07-12 06:05] LABS: Anion Gap 12 (12-20); Blood Urea Nitrogen 10 mg/dL (9-16); Calcium 8.8 mg/dL (8.4-10.2); Carbon Dioxide 32 mmol/L (22-29); Chloride 100 mmol/L (96-108); Creatinine Clr Calc Pharmacy 113.6; Estimated Glomerular Filt Rate > 60; Glucose Random 149 mg/dL (60-115); Magnesium 1.9 mg/dL (1.6-2.6); Phosphorus 3.5 mg/dL (2.7-4.5); Potassium 4.3 mmol/L (3.3-5.1); Sodium 140 mmol/L (135-145)
[2021-07-12] MEDS: fentaNYL citrate/PF 100 MCG/2 ML VIAL 50 MCG IVPUSH ×4 (06:13→21:08)
[2021-07-12 06:15] LABS: Lactate Dehydrogenase 402 U/L (122-220)
[2021-07-12 07:09] LABS: Glucose, Whole Blood 158 mg/dL (60-115)
[2021-07-12] MEDS: 0.9 % Sodium Chloride Flush 3 ML SYRINGE IVFLUSH ×3 (09:38→23:52)
[2021-07-12] MEDS: methylPREDNISolone Sod Succ 125 MG/2 ML VIAL 40 MG IVPUSH (09:39)
[2021-07-12] MEDS: Enoxaparin Sodium 40 MG/0.4 ML SYRINGE SUBCUT (09:39)
[2021-07-12] MEDS: Aspirin Enteric Coated 81 MG TABLET.DR PO (09:52)
--- NOTE | 2021-07-12 10:39 | PC.NURSE ---
Pt taken off of Bipap at 8am. Now on highflow 95% and 55liters with NRB mask. Pt's sats drop with movement/anxiety. She takes almost a hlaf hr to recover at times fully into 90s but pt at this time is 92% on the above settings and calm.
[2021-07-12 11:34] LABS: Glucose, Whole Blood 240 mg/dL (60-115)
[2021-07-12] MEDS: Insulin Lispro 100 UNIT/ML 3 ML VIAL SUBCUT ×2 (11:42→17:17)
--- NOTE | 2021-07-12 13:00 | PC.NURSE ---
Transdermal fentanyl patches (one to left shoulder and one to right shoulder) removed. Freddy PARSONS as witness to disposal in RX destroyer.
--- NOTE | 2021-07-12 14:54 | PM.CCPN ---
Subjective Subjective Date of Service: 07/12/21 Interval History: 41-year-old female with hypoxemic respiratory failure from COVID-19 pneumonitis and ARDS who had progressed due to inability to maintain oxygen saturations to a BiPAP machine at 12/6 pressures FiO2 100% and has been stable for 24 hours at 97% oxygen saturation in sinus rhythm rate of 80 and blood pressure 120/70 Critical Care Time (minutes): 35 Physical Exam Vital Signs: Vital Signs: Last Vital Signs Temp 99.1 F 07/12/21 14:00 Pulse 119 H 07/12/21 14:00 Resp 42 H 07/12/21 14:00 BP 120/73 07/12/21 14:00 Pulse Ox 91 L 07/12/21 14:00 Body Mass Index 24.3 alert and oriented and nonfocal neurologically cardiovascular with no neck vein distension no gallops and good bilateral carotid upstrokes lungs without adventitious sounds abdomen soft with good bowel sounds and no organomegaly Objective Data Labs CBC & Chem 7: 07/12/21 05:22 07/12/21 05:22 Labs: Laboratory Results - last 24 hr 07/11/21 07/11/21 07/12/21 17:09 19:53 05:22 WBC 11.9 H RBC 4.14 L Hgb 9.9 L Hct 33.0 L MCV 79.7 L MCH 23.9 L MCHC 30.0 L RDW 19.8 H Plt Count 343 MPV 9.5 Immature Gran % (Auto) 1.9 H Neut % (Auto) 83.1 H Lymph % (Auto) 7.8 L [place] % (Auto) 5.1 Eos % (Auto) 1.9 Baso % (Auto) 0.2 Lymph # (Auto) 0.9 L [place] # (Auto) 0.6 Eos # (Auto) 0.2 Baso # (Auto) 0.0 Abs Immat Gran (auto) 0.22 H Absolute Neuts (auto) 9.9 H Absolute Nucleated RBC 0.000 Nucleated RBC % (auto) 0.0 D-Dimer VBG pH VBG pCO2 VBG pO2 VBG HCO3 VBG O2 Saturation VBG Base Excess Sodium Potassium Chloride Carbon Dioxide Anion Gap BUN Creatinine Estim Creat Clear Calc Estimated GFR POC Glucose 216 H 135 H Random Glucose Calcium Phosphorus Magnesium Lactate Dehydrogenase Albumin 07/12/21 07/12/21 07/12/21 05:22 05:22 05:27 WBC RBC Hgb Hct MCV MCH MCHC RDW Plt Count MPV Immature Gran % (Auto) Neut % (Auto) Lymph % (Auto) Morgan % (Auto) Eos % (Auto) Baso % (Auto) Lymph # (Auto) [place] # (Auto) Eos # (Auto) Baso # (Auto) Abs Immat Gran (auto) Absolute Neuts (auto) Absolute Nucleated RBC Nucleated RBC % (auto) D-Dimer 1824 VBG pH 7.46 H VBG pCO2 45 VBG pO2 45 VBG HCO3 32 H VBG O2 Saturation 72.0 VBG Base Excess 7.7 Sodium 140 Potassium 4.3 Chloride 100 Carbon Dioxide 32 H Anion Gap 12 BUN 10 Creatinine 0.58 Estim Creat Clear Calc 113.6 Estimated GFR > 60 POC Glucose Random Glucose 149 H Calcium 8.8 Phosphorus 3.5 Magnesium 1.9 Lactate Dehydrogenase 402 H Albumin 3.0 L 07/12/21 07/12/21 07:03 11:26 WBC RBC Hgb Hct MCV MCH MCHC RDW Plt Count MPV Immature Gran % (Auto) Neut % (Auto) Lymph % (Auto) [place] % (Auto) Eos % (Auto) Baso % (Auto) Lymph # (Auto) [place] # (Auto) Eos # (Auto) Baso # (Auto) Abs Immat Gran (auto) Absolute Neuts (auto) Absolute Nucleated RBC Nucleated RBC % (auto) D-Dimer VBG pH VBG pCO2 VBG pO2 VBG HCO3 VBG O2 Saturation VBG Base Excess Sodium Potassium Chloride Carbon Dioxide Anion Gap BUN Creatinine Estim Creat Clear Calc Estimated GFR POC Glucose 158 H 240 H Random Glucose Calcium Phosphorus Magnesium Lactate Dehydrogenase Albumin Microbiology Microbiology Results: Microbiology 07/01/21 00:37 Blood - Venous Blood Culture - Final No growth after 5 days. 07/01/21 00:37 Blood - Venous Blood Culture - Final No growth after 5 days. 07/02/21 15:55 Urine clean catch - Urine ortiz top Urine Culture - Final Quality Stroke Does the patient have a stroke diagnosis?: No VTE Prior VTE?: No VTE Risk Level:: Medical - moderate - high VTE Device Contraindication: Treatment Not Indicated VTE Drug Contraindication: N/A - Med Ordered Progress Note: A&P Assessment and plan (1) Pneumomediastinum: Status: Acute (2) Anxiety: Status: Acute (3) Acute respiratory distress syndrome (ARDS) due to COVID-19 virus: Status: Acute (4) Acute respiratory failure with hypoxia: Status: Acute (5) Pneumonia due to COVID-19 virus: Status: Acute (6) COVID-19: Status: Acute (7) Breast mass: Status: Acute (8) Hypoxia: Status: Acute Assessment and Plan: as long as she tolerates I will continue BiPAP support and attempt to wean her back to nasal high-flow as soon she so signs of compensation
[2021-07-12 17:12] LABS: Glucose, Whole Blood 189 mg/dL (60-115)
--- NOTE | 2021-07-12 19:22 | PC.NURSE ---
Pt primarially on bipap today 09/12 at 100% fio2. Pt placed on highflow for meals but eating only about 25%. Sats in low 80s at times with high flow. Sats improve quickly with use of the bipap. Tollerating well.
[2021-07-12 21:05] LABS: Glucose, Whole Blood 131 mg/dL (60-115)
[2021-07-13] VITALS (31 sets, daily range): BP systolic 113–136; BP diastolic 69–83; PULSE 81–133; RESP 21–44; TEMP 37.1–37.5; O2SAT 84–98; BMI 24.3
[2021-07-13] MEDS: fentaNYL citrate/PF 100 MCG/2 ML VIAL 50 MCG IVPUSH ×8 (00:15→22:52)
[2021-07-13 05:39] LABS: MANUAL DIFF FLAG NO
[2021-07-13 05:44] LABS: Basophils Percent Auto 0.2 % (0-2); Eosinophils Absolute Auto 0.3 X10*3/uL (0.0-0.4); Eosinophils Percent Auto 3.1 % (0-4); Hematocrit 34.5 % (37-47); Hemoglobin 10.3 g/dl (12.0-16.0); Imm Gran Abs Auto 0.19 X10*3/uL (0.00-0.03); Imm Gran Pct Auto 1.8 % (0.0-0.4); Lymphocytes Absolute Auto 1.1 X10*3/uL (1.2-4.9); Lymphocytes Percent Auto 10.3 % (20-40); Mean Corpuscular HGB Conc 29.9 g/dl (31.0-35.0); Mean Corpuscular Hemoglobin 23.9 pg (27.0-33.0); Mean Platelet Volume 9.3 fL (9.4-12.3); Monocytes Absolute Auto 0.5 X10*3/uL (0.1-1.2); Monocytes Percent Auto 4.5 % (2-11); Neutrophils Absolute Auto 8.5 X10*3/uL (2.0-8.3); Neutrophils Percent Auto 80.1 % (45-73); Platelet Count 381 X10*3/uL (160-400); Red Blood Count 4.31 X10*6/uL (4.20-5.50); Red Cell Distribution Width 19.8 % (11.0-16.0); White Blood Count 10.6 X10*3/uL (4.8-10.8)
[2021-07-13 05:46] LABS: VBG Base Excess 6.2 mmol/L; VBG HCO3 30 mmol/L (22-26); VBG pCO2 41 mmHg; VBG pH 7.47 (7.32-7.43); VBG pO2 41 mmHg
[2021-07-13 06:14] LABS: Albumin Level 3.1 g/dL (3.5-5.0); Anion Gap 12 (12-20); Blood Urea Nitrogen 11 mg/dL (9-16); Carbon Dioxide 33 mmol/L (22-29); Chloride 97 mmol/L (96-108); Creatinine Clr Calc Pharmacy 111.7; Estimated Glomerular Filt Rate > 60; Glucose Random 143 mg/dL (60-115); Magnesium 1.9 mg/dL (1.6-2.6); Phosphorus 3.7 mg/dL (2.7-4.5); Potassium 4.3 mmol/L (3.3-5.1); Sodium 138 mmol/L (135-145)
--- NOTE | 2021-07-13 06:46 | PC.NURSE ---
CARE ASSUMED 23:15...AWAKE..ALERT...MARKED ANXIETY AT TIMES..MAINTAINED BIPAP 12/6 AND 100% O2...RR26-34 AT REST...Ve>10 L/M...SAO2 93-95%...MARKED DYSPNEA WHEN BRIEFLY OFF BIPAP FOR PO FLUIDS AND READILY DESATURATES...PRN FENTANYL X2 OVERNIGHT FOR WORK OF BREATHING/SOB....RADIOLOGY HERE FOR AM CXR...TACHYCARDIC/TACHYPNEIC AFTERWARDS...S.TACH HR 130'S/RR 60'S AND C/O SEVERE SOB...SAO2 80%...UNABLE TI GIVE FENTANYL FOR SOB D/T IV NO LONGER PATENT...AFTER MULTIPLE ATTEMPTS BY SEVERAL RN'S #22 ANGIO/PRN ADAPTOR STARTED LEFT FOREARM...FENTANYL GIVEN WITH RESTFUL EFFECT...CURRENTLY DOZING...RR 26-28...SAO2 90-92%
[2021-07-13 06:55] LABS: Venous Blood Gas Refer to POC result
[2021-07-13 07:23] LABS: Glucose, Whole Blood 142 mg/dL (60-115)
[2021-07-13] MEDS: Enoxaparin Sodium 40 MG/0.4 ML SYRINGE SUBCUT (08:30)
[2021-07-13] MEDS: Aspirin Enteric Coated 81 MG TABLET.DR PO (08:30)
[2021-07-13] MEDS: methylPREDNISolone Sod Succ 125 MG/2 ML VIAL 40 MG IVPUSH (08:31)
--- NOTE | 2021-07-13 11:11 | MHC.CLN ---
F/U PT WITH INCREASED NUTRITION RISK R/T POOR PO >X 7 DAYS PO RECORDED 25% NSG REPORTED PT CAN TAKE 2 SIPS OF ENSURE BEFORE O2 SAT DETERIORATES DIET RX: REGULAR-APPROPRIATE PT RECEIVING ENSURE BID; SUPPLEMENT PROVIDES 700KCALS (33% EST KCAL NEEDS), 40G PROTEIN (54% EST PROTEIN) CAN PROVIDE PPN IF NEEDED; D10 AA4.25 AT 30ML/HR TO PROVIDE 367KCALS, 31G PROTEIN PLEASE CONSULT RD
[2021-07-13 11:19] LABS: Glucose, Whole Blood 205 mg/dL (60-115)
[2021-07-13] MEDS: Insulin Lispro 100 UNIT/ML 3 ML VIAL SUBCUT ×2 (11:33→16:40)
--- NOTE | 2021-07-13 13:20 | P.PNCC_ITS ---
Subjective Subjective Date of Service: 07/13/21 Interval History: 41-year-old female with hypoxemic respiratory failure due to COVID-19 bilateral pneumonitis and ARDS and still remains intermittently dependent on noninvasive positive-pressure device so p.o. intake of course is poor but she compensates at 90% oxygen saturation and it clearly clearly diminishes the work of breathing reducing heart rate and blood pressure to normal levels and none of her laboratory work as changed chest x-ray remains unchanged that clinically there was no evidence of new infiltrate Critical Care Time (minutes): 35 Physical Exam Vital Signs: Vital Signs: Last Vital Signs Temp 99.3 F 07/13/21 13:00 Pulse 88 07/13/21 13:00 Resp 31 H 07/13/21 13:00 BP 119/77 07/13/21 13:00 Pulse Ox 92 07/13/21 13:00 Body Mass Index 24.3 Alert and oriented and nonfocal neurologically Normal sinus rhythm with and even intake and output ratio and no neck vein distension and good bilateral carotid upstrokes Coarse bilateral breath sounds but no adventitious sounds Abdomen benign no organomegaly Objective Data Labs CBC & Chem 7: 07/13/21 05:29 07/13/21 05:29 Labs: Laboratory Results - last 24 hr 07/12/21 07/12/21 07/13/21 17:08 21:01 05:29 WBC 10.6 RBC 4.31 Hgb 10.3 L Hct 34.5 L MCV 80.0 MCH 23.9 L MCHC 29.9 L RDW 19.8 H Plt Count 381 MPV 9.3 L Immature Gran % (Auto) 1.8 H Neut % (Auto) 80.1 H Lymph % (Auto) 10.3 L [place] % (Auto) 4.5 Eos % (Auto) 3.1 Baso % (Auto) 0.2 Lymph # (Auto) 1.1 L [place] # (Auto) 0.5 Eos # (Auto) 0.3 Baso # (Auto) 0.0 Abs Immat Gran (auto) 0.19 H Absolute Neuts (auto) 8.5 H Absolute Nucleated RBC 0.000 Nucleated RBC % (auto) 0.0 VBG pH VBG pCO2 VBG pO2 VBG HCO3 VBG O2 Saturation VBG Base Excess Sodium Potassium Chloride Carbon Dioxide Anion Gap BUN Creatinine Estim Creat Clear Calc Estimated GFR POC Glucose 189 H 131 H Random Glucose Calcium Phosphorus Magnesium Albumin 07/13/21 07/13/21 07/13/21 05:29 05:41 07:17 WBC RBC Hgb Hct MCV MCH MCHC RDW Plt Count MPV Immature Gran % (Auto) Neut % (Auto) Lymph % (Auto) [place] % (Auto) Eos % (Auto) Baso % (Auto) Lymph # (Auto) [place] # (Auto) Eos # (Auto) Baso # (Auto) Abs Immat Gran (auto) Absolute Neuts (auto) Absolute Nucleated RBC Nucleated RBC % (auto) VBG pH 7.47 H VBG pCO2 41 VBG pO2 41 VBG HCO3 30 H VBG O2 Saturation 66.0 VBG Base Excess 6.2 Sodium 138 Potassium 4.3 Chloride 97 Carbon Dioxide 33 H Anion Gap 12 BUN 11 Creatinine 0.59 Estim Creat Clear Calc 111.7 Estimated GFR > 60 POC Glucose 142 H Random Glucose 143 H Calcium 9.0 Phosphorus 3.7 Magnesium 1.9 Albumin 3.1 L 07/13/21 11:16 WBC RBC Hgb Hct MCV MCH MCHC RDW Plt Count MPV Immature Gran % (Auto) Neut % (Auto) Lymph % (Auto) [place] % (Auto) Eos % (Auto) Baso % (Auto) Lymph # (Auto) [place] # (Auto) Eos # (Auto) Baso # (Auto) Abs Immat Gran (auto) Absolute Neuts (auto) Absolute Nucleated RBC Nucleated RBC % (auto) VBG pH VBG pCO2 VBG pO2 VBG HCO3 VBG O2 Saturation VBG Base Excess Sodium Potassium Chloride Carbon Dioxide Anion Gap BUN Creatinine Estim Creat Clear Calc Estimated GFR POC Glucose 205 H Random Glucose Calcium Phosphorus Magnesium Albumin Microbiology Microbiology Results: Microbiology 07/01/21 00:37 Blood - Venous Blood Culture - Final No growth after 5 days. 07/01/21 00:37 Blood - Venous Blood Culture - Final No growth after 5 days. 07/02/21 15:55 Urine clean catch - Urine ortiz top Urine Culture - Final Quality Stroke Does the patient have a stroke diagnosis?: No VTE Prior VTE?: No VTE Risk Level:: Medical - moderate - high VTE Device Contraindication: Treatment Not Indicated VTE Drug Contraindication: N/A - Med Ordered Progress Note: A&P Assessment and plan (1) Pneumomediastinum: Status: Acute (2) Anxiety: Status: Acute (3) Acute respiratory distress syndrome (ARDS) due to COVID-19 virus: Status: Acute (4) Acute respiratory failure with hypoxia: Status: Acute (5) Pneumonia due to COVID-19 virus: Status: Acute (6) COVID-19: Status: Acute (7) Breast mass: Status: Acute (8) Hypoxia: Status: Acute Assessment and Plan: The plan is the same try to keep from needing to intubated possible and routine surveillance for nosocomial infection
[2021-07-13] MEDS: 0.9 % Sodium Chloride Flush 3 ML SYRINGE IVFLUSH ×2 (15:41→23:45)
--- NOTE | 2021-07-13 16:07 | MHC.CM.PN ---
Pt remains in ICU on NIPPV with COVID. Pt only has HSN insurance and isn't eligible for an upgrade until open enrollment on 08/08 per [facility] [place]. CM to follow for d/c needs
[2021-07-13 16:18] LABS: Glucose, Whole Blood 194 mg/dL (60-115)
[2021-07-13 20:21] LABS: Glucose, Whole Blood 155 mg/dL (60-115)
[2021-07-14] VITALS (29 sets, daily range): BP systolic 113–132; BP diastolic 70–82; PULSE 71–109; RESP 20–39; TEMP 36.5–37.4; O2SAT 84–97; BMI 24.7
[2021-07-14] MEDS: fentaNYL citrate/PF 100 MCG/2 ML VIAL 50 MCG IVPUSH ×8 (00:41→23:14)
[2021-07-14 05:46] LABS: VBG Base Excess 8.4 mmol/L; VBG HCO3 31 mmol/L (22-26); VBG pCO2 39 mmHg; VBG pH 7.51 (7.32-7.43); VBG pO2 49 mmHg
[2021-07-14 05:51] LABS: MANUAL DIFF FLAG NO
[2021-07-14 05:52] LABS: Venous Blood Gas Refer to POC result
[2021-07-14 05:54] LABS: Basophils Percent Auto 0.3 % (0-2); Eosinophils Absolute Auto 0.2 X10*3/uL (0.0-0.4); Eosinophils Percent Auto 1.8 % (0-4); Hematocrit 34.8 % (37-47); Hemoglobin 10.5 g/dl (12.0-16.0); Imm Gran Abs Auto 0.16 X10*3/uL (0.00-0.03); Imm Gran Pct Auto 1.4 % (0.0-0.4); Lymphocytes Absolute Auto 1.2 X10*3/uL (1.2-4.9); Lymphocytes Percent Auto 10.9 % (20-40); Mean Corpuscular HGB Conc 30.2 g/dl (31.0-35.0); Mean Corpuscular Hemoglobin 24.2 pg (27.0-33.0); Mean Corpuscular Volume 80.4 fL (80-98); Mean Platelet Volume 9.3 fL (9.4-12.3); Monocytes Absolute Auto 0.5 X10*3/uL (0.1-1.2); Monocytes Percent Auto 4.7 % (2-11); Neutrophils Absolute Auto 9.2 X10*3/uL (2.0-8.3); Neutrophils Percent Auto 80.9 % (45-73); Platelet Count 384 X10*3/uL (160-400); Red Blood Count 4.33 X10*6/uL (4.20-5.50); Red Cell Distribution Width 19.7 % (11.0-16.0); White Blood Count 11.3 X10*3/uL (4.8-10.8)
[2021-07-14 06:10] LABS: Anion Gap 13 (12-20); Blood Urea Nitrogen 13 mg/dL (9-16); Carbon Dioxide 31 mmol/L (22-29); Chloride 98 mmol/L (96-108); Creatinine Clr Calc Pharmacy 106.3; Estimated Glomerular Filt Rate > 60; Glucose Random 142 mg/dL (60-115); Magnesium 1.8 mg/dL (1.6-2.6); Phosphorus 3.5 mg/dL (2.7-4.5); Potassium 3.9 mmol/L (3.3-5.1); Sodium 138 mmol/L (135-145)
--- NOTE | 2021-07-14 06:38 | PM.CCPN ---
Subjective Subjective Date of Service: 07/14/21 Interval History: 41-year-old female with hypoxemic respiratory failure from COVID-19 pneumonitis and ARDS still requiring noninvasive positive-pressure ventilation keeping saturations anywhere from 87-91% stable vital signs and laboratory work no new infiltrate on chest x-ray no fever just yet unresolved COVID pneumonitis Critical Care Time (minutes): 35 Physical Exam Vital Signs: Vital Signs: Last Vital Signs Temp 98.8 F 07/14/21 06:00 Pulse 88 07/14/21 06:00 Resp 30 H 07/14/21 06:00 BP 120/70 07/14/21 06:00 Pulse Ox 90 L 07/14/21 06:00 Body Mass Index 24.7 Alert and oriented x3 and nonfocal neurologically No neck vein distension and good bilateral carotid upstrokes Chest with is scattered bilateral coarse rales but no accessory muscle use and no adventitious sounds Abdomen benign no organomegaly no tenderness she Objective Data Labs CBC & Chem 7: 07/14/21 05:41 07/14/21 05:41 Labs: Laboratory Results - last 24 hr 07/13/21 07/13/21 07/13/21 07:17 11:16 15:51 WBC RBC Hgb Hct MCV MCH MCHC RDW Plt Count MPV Immature Gran % (Auto) Neut % (Auto) Lymph % (Auto) [place] % (Auto) Eos % (Auto) Baso % (Auto) Lymph # (Auto) [place] # (Auto) Eos # (Auto) Baso # (Auto) Abs Immat Gran (auto) Absolute Neuts (auto) Absolute Nucleated RBC Nucleated RBC % (auto) VBG pH VBG pCO2 VBG pO2 VBG HCO3 VBG O2 Saturation VBG Base Excess Sodium Potassium Chloride Carbon Dioxide Anion Gap BUN Creatinine Estim Creat Clear Calc Estimated GFR POC Glucose 142 H 205 H 194 H Random Glucose Calcium Phosphorus Magnesium 07/13/21 07/14/21 07/14/21 20:16 05:41 05:41 WBC 11.3 H RBC 4.33 Hgb 10.5 L Hct 34.8 L MCV 80.4 MCH 24.2 L MCHC 30.2 L RDW 19.7 H Plt Count 384 MPV 9.3 L Immature Gran % (Auto) 1.4 H Neut % (Auto) 80.9 H Lymph % (Auto) 10.9 L [place] % (Auto) 4.7 Eos % (Auto) 1.8 Baso % (Auto) 0.3 Lymph # (Auto) 1.2 [place] # (Auto) 0.5 Eos # (Auto) 0.2 Baso # (Auto) 0.0 Abs Immat Gran (auto) 0.16 H Absolute Neuts (auto) 9.2 H Absolute Nucleated RBC 0.000 Nucleated RBC % (auto) 0.0 VBG pH VBG pCO2 VBG pO2 VBG HCO3 VBG O2 Saturation VBG Base Excess Sodium 138 Potassium 3.9 Chloride 98 Carbon Dioxide 31 H Anion Gap 13 BUN 13 Creatinine 0.62 Estim Creat Clear Calc 106.3 Estimated GFR > 60 POC Glucose 155 H Random Glucose 142 H Calcium 9.0 Phosphorus 3.5 Magnesium 1.8 07/14/21 05:41 WBC RBC Hgb Hct MCV MCH MCHC RDW Plt Count MPV Immature Gran % (Auto) Neut % (Auto) Lymph % (Auto) [place] % (Auto) Eos % (Auto) Baso % (Auto) Lymph # (Auto) [place] # (Auto) Eos # (Auto) Baso # (Auto) Abs Immat Gran (auto) Absolute Neuts (auto) Absolute Nucleated RBC Nucleated RBC % (auto) VBG pH 7.51 H VBG pCO2 39 VBG pO2 49 VBG HCO3 31 H VBG O2 Saturation 75.0 VBG Base Excess 8.4 Sodium Potassium Chloride Carbon Dioxide Anion Gap BUN Creatinine Estim Creat Clear Calc Estimated GFR POC Glucose Random Glucose Calcium Phosphorus Magnesium Microbiology Microbiology Results: Microbiology 07/01/21 00:37 Blood - Venous Blood Culture - Final No growth after 5 days. 07/01/21 00:37 Blood - Venous Blood Culture - Final No growth after 5 days. 07/02/21 15:55 Urine clean catch - Urine ortiz top Urine Culture - Final Quality Stroke Does the patient have a stroke diagnosis?: No VTE Prior VTE?: No VTE Risk Level:: Medical - moderate - high VTE Device Contraindication: Treatment Not Indicated VTE Drug Contraindication: N/A - Med Ordered Progress Note: A&P Assessment and plan (1) Pneumomediastinum: Status: Acute (2) Anxiety: Status: Acute (3) Acute respiratory distress syndrome (ARDS) due to COVID-19 virus: Status: Acute (4) Acute respiratory failure with hypoxia: Status: Acute (5) Pneumonia due to COVID-19 virus: Status: Acute (6) COVID-19: Status: Acute (7) Breast mass: Status: Acute (8) Hypoxia: Status: Acute Assessment and Plan: Just continue expectant therapy and watch for any sign of nosocomial infection but not yet ready to wean from her maximum noninvasive support
[2021-07-14 07:20] LABS: Glucose, Whole Blood 134 mg/dL (60-115)
[2021-07-14] MEDS: 0.9 % Sodium Chloride Flush 3 ML SYRINGE IVFLUSH ×2 (08:46→16:45)
[2021-07-14] MEDS: methylPREDNISolone Sod Succ 125 MG/2 ML VIAL 40 MG IVPUSH (09:41)
[2021-07-14] MEDS: Aspirin Enteric Coated 81 MG TABLET.DR PO (09:42)
[2021-07-14] MEDS: Enoxaparin Sodium 40 MG/0.4 ML SYRINGE SUBCUT (09:42)
[2021-07-14] MEDS: Insulin Lispro 100 UNIT/ML 3 ML VIAL SUBCUT ×2 (11:48→16:44)
[2021-07-14 12:04] LABS: Glucose, Whole Blood 162 mg/dL (60-115)
[2021-07-14 16:46] LABS: Glucose, Whole Blood 229 mg/dL (60-115)
[2021-07-14 21:09] LABS: Glucose, Whole Blood 157 mg/dL (60-115)
[2021-07-15] VITALS (33 sets, daily range): BP systolic 97–142; BP diastolic 61–91; PULSE 8–148; RESP 1–60; TEMP 36.2–37.5; O2SAT 86–98; BMI 23.2
[2021-07-15] MEDS: 0.9 % Sodium Chloride Flush 3 ML SYRINGE IVFLUSH ×3 (00:07→17:02)
[2021-07-15] MEDS: fentaNYL citrate/PF 100 MCG/2 ML VIAL 50 MCG IVPUSH ×5 (01:32→08:38)
[2021-07-15 06:01] LABS: MANUAL DIFF FLAG NO
[2021-07-15 06:02] LABS: Basophils Percent Auto 0.2 % (0-2); Eosinophils Absolute Auto 0.3 X10*3/uL (0.0-0.4); Hematocrit 37.4 % (37-47); Hemoglobin 11.3 g/dl (12.0-16.0); Imm Gran Abs Auto 0.12 X10*3/uL (0.00-0.03); Lymphocytes Absolute Auto 1.3 X10*3/uL (1.2-4.9); Lymphocytes Percent Auto 10.5 % (20-40); Mean Corpuscular HGB Conc 30.2 g/dl (31.0-35.0); Mean Corpuscular Hemoglobin 24.1 pg (27.0-33.0); Mean Corpuscular Volume 79.9 fL (80-98); Mean Platelet Volume 9.3 fL (9.4-12.3); Monocytes Absolute Auto 0.6 X10*3/uL (0.1-1.2); Monocytes Percent Auto 4.6 % (2-11); Neutrophils Absolute Auto 10.2 X10*3/uL (2.0-8.3); Neutrophils Percent Auto 81.7 % (45-73); Platelet Count 399 X10*3/uL (160-400); Red Blood Count 4.68 X10*6/uL (4.20-5.50); Red Cell Distribution Width 19.9 % (11.0-16.0); White Blood Count 12.5 X10*3/uL (4.8-10.8)
[2021-07-15 06:23] LABS: Albumin Level 3.4 g/dL (3.5-5.0); Anion Gap 16 (12-20); Blood Urea Nitrogen 14 mg/dL (9-16); Calcium 9.6 mg/dL (8.4-10.2); Carbon Dioxide 29 mmol/L (22-29); Chloride 100 mmol/L (96-108); Creatinine Clr Calc Pharmacy 99.9; Estimated Glomerular Filt Rate > 60; Glucose Random 146 mg/dL (60-115); Magnesium 1.9 mg/dL (1.6-2.6); Potassium 4.5 mmol/L (3.3-5.1); Sodium 140 mmol/L (135-145)
[2021-07-15 07:23] LABS: Glucose, Whole Blood 131 mg/dL (60-115)
[2021-07-15 07:53] LABS: VBG Base Excess 4.8 mmol/L; VBG HCO3 28 mmol/L (22-26); VBG pCO2 37 mmHg; VBG pH 7.48 (7.32-7.43); VBG pO2 42 mmHg
[2021-07-15 08:33] LABS: Venous Blood Gas Refer to POC result
[2021-07-15] MEDS: Enoxaparin Sodium 40 MG/0.4 ML SYRINGE SUBCUT (08:38)
[2021-07-15] MEDS: Aspirin Enteric Coated 81 MG TABLET.DR PO (08:38)
[2021-07-15] MEDS: methylPREDNISolone Sod Succ 125 MG/2 ML VIAL 40 MG IVPUSH (08:38)
--- NOTE | 2021-07-15 10:11 | MHC.CLN ---
F/U PT WITH INCREASED NUTRITION RISK R/T POOR PO >X 7 DAYS PT REMAINS THE SAME DIET RX: REGULAR-APPROPRIATE PT RECEIVING ENSURE BID; SUPPLEMENT PROVIDES 700KCALS (33% EST KCAL NEEDS), 40G PROTEIN (54% EST PROTEIN) CAN PROVIDE PPN IF NEEDED; D10 AA4.25 AT 30ML/HR TO PROVIDE 367KCALS, 31G PROTEIN PLEASE CONSULT RD
[2021-07-15 11:15] LABS: Glucose, Whole Blood 183 mg/dL (60-115)
[2021-07-15] MEDS: LORazepam 2 MG/ML VIAL 0.5 MG IVPUSH ×4 (11:45→20:40)
--- NOTE | 2021-07-15 12:41 | P.PNCC_ITS ---
Subjective Subjective Date of Service: 07/15/21 Interval History: 41-year-old with that more than 2 weeks of persistent severe COVID-19 pneumonitis and ARDS still has significant BiPAP dependence with 100% FiO2 and with any movement or any increase in respiratory rate her oxygen saturations plummeted into the 70s she still has not yet come to intubation in and we switched her anxiety a lytic from fentanyl now to Ativan with somewhat better clinical results giving her more stable vital signs lower respiratory rate but oxygen saturations a little more consistently 90-92 and still no si gnificant fever or white count no new infiltrate by chest x-ray Critical Care Time (minutes): 45 Physical Exam Vital Signs: Vital Signs: Last Vital Signs Temp 99.1 F 07/15/21 11:00 Pulse 110 H 07/15/21 12:00 Resp 1 L 07/15/21 12:00 BP 126/88 07/15/21 12:00 Pulse Ox 93 07/15/21 12:00 Body Mass Index 23.2 Oriented and nonfocal neurologically Cardiovascular unchanged with good bilateral carotid upstrokes and no neck vein distension Chest with coarse bilateral rales but no adventitious sounds Abdomen benign soft no organomegaly Objective Data Labs CBC & Chem 7: 07/15/21 05:54 07/15/21 05:54 Labs: Laboratory Results - last 24 hr 07/14/21 07/14/21 07/15/21 16:34 20:28 05:54 WBC 12.5 H RBC 4.68 Hgb 11.3 L Hct 37.4 MCV 79.9 L MCH 24.1 L MCHC 30.2 L RDW 19.9 H Plt Count 399 MPV 9.3 L Immature Gran % (Auto) 1.0 H Neut % (Auto) 81.7 H Lymph % (Auto) 10.5 L [place] % (Auto) 4.6 Eos % (Auto) 2.0 Baso % (Auto) 0.2 Lymph # (Auto) 1.3 [place] # (Auto) 0.6 Eos # (Auto) 0.3 Baso # (Auto) 0.0 Abs Immat Gran (auto) 0.12 H Absolute Neuts (auto) 10.2 H Absolute Nucleated RBC 0.000 Nucleated RBC % (auto) 0.0 VBG pH VBG pCO2 VBG pO2 VBG HCO3 VBG O2 Saturation VBG Base Excess Sodium Potassium Chloride Carbon Dioxide Anion Gap BUN Creatinine Estim Creat Clear Calc Estimated GFR POC Glucose 229 H 157 H Random Glucose Calcium Phosphorus Magnesium Albumin 07/15/21 07/15/21 07/15/21 05:54 05:57 07:19 WBC RBC Hgb Hct MCV MCH MCHC RDW Plt Count MPV Immature Gran % (Auto) Neut % (Auto) Lymph % (Auto) [place] % (Auto) Eos % (Auto) Baso % (Auto) Lymph # (Auto) [place] # (Auto) Eos # (Auto) Baso # (Auto) Abs Immat Gran (auto) Absolute Neuts (auto) Absolute Nucleated RBC Nucleated RBC % (auto) VBG pH 7.48 H VBG pCO2 37 VBG pO2 42 VBG HCO3 28 H VBG O2 Saturation 64.0 VBG Base Excess 4.8 Sodium 140 Potassium 4.5 Chloride 100 Carbon Dioxide 29 Anion Gap 16 BUN 14 Creatinine 0.66 Estim Creat Clear Calc 99.9 Estimated GFR > 60 POC Glucose 131 H Random Glucose 146 H Calcium 9.6 D Phosphorus 4.0 Magnesium 1.9 Albumin 3.4 L 07/15/21 11:11 WBC RBC Hgb Hct MCV MCH MCHC RDW Plt Count MPV Immature Gran % (Auto) Neut % (Auto) Lymph % (Auto) [place] % (Auto) Eos % (Auto) Baso % (Auto) Lymph # (Auto) [place] # (Auto) Eos # (Auto) Baso # (Auto) Abs Immat Gran (auto) Absolute Neuts (auto) Absolute Nucleated RBC Nucleated RBC % (auto) VBG pH VBG pCO2 VBG pO2 VBG HCO3 VBG O2 Saturation VBG Base Excess Sodium Potassium Chloride Carbon Dioxide Anion Gap BUN Creatinine Estim Creat Clear Calc Estimated GFR POC Glucose 183 H Random Glucose Calcium Phosphorus Magnesium Albumin Microbiology Microbiology Results: Microbiology 07/01/21 00:37 Blood - Venous Blood Culture - Final No growth after 5 days. 07/01/21 00:37 Blood - Venous Blood Culture - Final No growth after 5 days. 07/02/21 15:55 Urine clean catch - Urine ortiz top Urine Culture - Final Quality Stroke Does the patient have a stroke diagnosis?: No VTE Prior VTE?: No VTE Risk Level:: Medical - moderate - high VTE Device Contraindication: Treatment Not Indicated VTE Drug Contraindication: N/A - Med Ordered Progress Note: A&P Assessment and plan (1) Pneumomediastinum: Status: Acute (2) Anxiety: Status: Acute (3) Acute respiratory distress syndrome (ARDS) due to COVID-19 virus: Status: Acute (4) Acute respiratory failure with hypoxia: Status: Acute (5) Pneumonia due to COVID-19 virus: Status: Acute (6) COVID-19: Status: Acute (7) Breast mass: Status: Acute (8) Hypoxia: Status: Acute Assessment and Plan: Will and we are going to stay with the Ativan as a anti anxiety mechanism and continue surveillance for nosocomial infection
[2021-07-15] MEDS: LORazepam 2 MG/ML VIAL 1 MG IVPUSH (14:31)
[2021-07-15 16:54] LABS: Glucose, Whole Blood 170 mg/dL (60-115)
[2021-07-15] MEDS: fentaNYL citrate/NS 1,000 MCG/100 ML PLAST..BAG 20 MCG IVCONT (21:00)
[2021-07-15] MEDS: propofoL 1,000 MG/100 ML VIAL 15.22 MG IVCONT ×2 (21:00→23:59)
--- NOTE | 2021-07-15 21:11 | W.PM.CCHP ---
Procedures Date of Service Date of Service: 07/15/21 <Matt Lombardi NP - Last Filed: 07/15/21 21:14> Intubation Intubation Comments: Patient with acute respiratory distress, refractory to BIPAP, Resp rate in 60s depite ativan administration, requiring emergent intubation for hypoxemia. Patient intubated with 7.5 cuffed ET tube under glide scope guidance with visualization of vocal cords, without immediate complications. ET tube position verified with Chest XRAY. <Matt Lombardi NP - Last Filed: 07/15/21 21:14> Consent for Procedure: Emergent-no informed consent obtained <Matt Lombardi NP - Last Filed: 07/15/21 21:14> Time out performed: No <Matt Lombardi NP - Last Filed: 07/15/21 21:14> Sedative: etomidate <Matt Lombardi NP - Last Filed: 07/15/21 21:14> Mg given: 20 <Matt Lombardi NP - Last Filed: 07/15/21 21:14> Paralytic: rocuronium <Matt Lombardi NP - Last Filed: 07/15/21 21:14> Mg given: 30 <Matt Lombardi NP - Last Filed: 07/15/21 21:14> Laryngoscope: fiber optic video scope <Matt Lombardi NP - Last Filed: 07/15/21 21:14> ET tube size: 7.5 <Matt Lombardi NP - Last Filed: 07/15/21 21:14> ET tube uncuffed: No <Matt Lombardi NP - Last Filed: 07/15/21 21:14> Tube secured depth (cm): 25 <Matt Lombardi NP - Last Filed: 07/15/21 21:14> Tube secured location: lips <Matt Lombardi NP - Last Filed: 07/15/21 21:14> Tube placement confirmation: visualized tube passing through cords <Matt Lombardi NP - Last Filed: 07/15/21 21:14> Patient tolerated procedure: no complications <Matt Lombardi NP - Last Filed: 07/15/21 21:14> Intubation complications: none <Matt Lombardi NP - Last Filed: 07/15/21 21:14>
--- NOTE | 2021-07-15 21:14 | P.PCNCC_ITS ---
Procedures Date of Service Date of Service: 07/15/21 <Matt Lombardi NP - Last Filed: 07/15/21 21:16> Central Line Placement Right IJ: Central Line Comments: Patient with poor peripheral access, requiring multiple lab draws and sedation medications.? Central line placed Right internal jugular triple lumen central venous catheter placed in usual sterile conditions under ultrasoun d guidance for appropriate vascular access without immediate complications. Central line position verified with Chest XRAY. <Matt Lombardi NP - Last Filed: 07/15/21 21:16> Consent for Procedure: Emergent-no informed consent obtained <Matt Lombardi NP - Last Filed: 07/15/21 21:16> Time out performed: Yes <Matt Lombardi NP - Last Filed: 07/15/21 21:16> Sterile Technique Used: Yes <Matt Lombardi NP - Last Filed: 07/15/21 21:16> Patient placed on monitor/pulse ox: Yes <Matt Lombardi NP - Last Filed: 07/15/21 21:16> MD prep: mask, gown and gloves <Matt Lombardi NP - Last Filed: 07/15/21 21:16> Central line prep: Chlorhexidine scrub <Matt Lombardi NP - Last Filed: 07/15/21 21:16> Ultrasound used for placement: Yes <Matt Lombardi NP - Last Filed: 07/15/21 21:16> Central line lumen inserted: triple <Matt Lombardi NP - Last Filed: 07/15/21 21:16> Post procedure: sutured in place, good blood return, all ports aspirated, flushed, capped and sterile dressing applied <Matt Lombardi NP - Last Filed: 07/15/21 21:16> Post procedure x-ray: tip of catheter in good position and no pneumothorax seen <Matt Lombardi NP - Last Filed: 07/15/21 21:16> Patient tolerated procedure: well and no complications <Matt Lombardi NP - Last Filed: 07/15/21 21:16>
--- NOTE | 2021-07-15 21:21 | PM.CCN ---
Critical Care Event Note Summary Date of Service: 07/15/21 <Matt Lombardi NP - Last Filed: 07/15/21 21:30> Code activated: No <Matt Lombardi NP - Last Filed: 07/15/21 21:30> Narrative: This case had a high probability of a clinically significant, sudden, or life threatening deterioration of this patient's condition which required my full and direct attention, intervention and personal management. <Matt Lombardi NP - Last Filed: 07/15/21 21:30> Critical Care Time (minutes): 45 <Matt Lombardi NP - Last Filed: 07/15/21 21:30> Comment: 41-year-old with + 2 weeks of persistent severe COVID-19 pneumonitis and ARDS BiPAP dependence for + 1 weeks with 100% FiO2. Today patient anxiety worsen multiple doses of Ativan. Tonight, patient is significant respiratory distress with respiratory rate in the 60s, hypoxic to 70s and 80s, notable retraction, and significant confusion. Required emergent intubation for worsening ARDS from COVID-19. I personally spoke with patient , Omar, and inform of patient's condition. He would like for patient to continue to be full code Plan Wean off mechanical intubation as soon as tolerated Post intubation VBG Continue current plan <Matt Lombardi NP - Last Filed: 07/15/21 21:30> 41-year-old with + 2 weeks of persistent severe COVID-19 pneumonitis and ARDS BiPAP dependence for + 1 weeks with 100% FiO2. Today patient anxiety worsen multiple doses of Ativan. Tonight, patient is significant respiratory distress with respiratory rate in the 60s, hypoxic to 70s and 80s, notable retraction, and significant confusion. Required emergent intubation for worsening ARDS from COVID-19. I personally spoke with patient , Omar, and inform of patient's condition. He would like for patient to continue to be full code Plan Wean off mechanical intubation as soon as tolerated Post intubation VBG Continue current plan Attending agrees with the above <Pramod Ponce MD - Last Filed: 07/17/21 16:11>
[2021-07-15] MEDS: Cisatracurium Besylate 20 MG/10 ML VIAL IVPUSH (21:41)
[2021-07-15 21:43] LABS: VBG Base Excess 4.2 mmol/L; VBG HCO3 30 mmol/L (22-26); VBG pCO2 49 mmHg; VBG pH 7.39 (7.32-7.43); VBG pO2 54 mmHg
[2021-07-15] MEDS: Etomidate 20 MG/10 ML VIAL IVPUSH (22:02)
[2021-07-15] MEDS: Rocuronium Bromide 50 MG/5 ML VIAL 30 MG IVPUSH (22:02)
[2021-07-15 22:03] LABS: Glucose, Whole Blood 143 mg/dL (60-115)
[2021-07-16] VITALS (26 sets, daily range): BP systolic 90–117; BP diastolic 52–73; PULSE 103–136; RESP 13–28; TEMP 36.7–37.7; O2SAT 88–94; BMI 23.2
[2021-07-16] MEDS: fentaNYL citrate/NS 1,000 MCG/100 ML PLAST..BAG 20 MCG IVCONT ×5 (00:03→19:39)
[2021-07-16] MEDS: 0.9 % Sodium Chloride Flush 3 ML SYRINGE IVFLUSH ×4 (00:13→23:52)
--- NOTE | 2021-07-16 01:29 | PC.NURSE ---
Patient increasingly anxious on initial assessment, uncontrollably crying. Ativan 0.5 mg x2 doses administered, without good effect. HR in the 140's, RR in the 50's, O2 sats high 80's -90, although continuously desating to 70's. MEDICAL ADMINISTRATIVE at bedside, decision made to intubate. TLC inserted. Patient on Propofol, and Fentanyl drip as per orders. VSS at present time. Will continue to monitor.
[2021-07-16 04:14] LABS: Venous Blood Gas Refer to POC result
[2021-07-16 04:47] LABS: MANUAL DIFF FLAG NO
[2021-07-16 04:49] LABS: VBG Base Excess 5.3 mmol/L; VBG HCO3 30 mmol/L (22-26); VBG pCO2 47 mmHg; VBG pH 7.41 (7.32-7.43); VBG pO2 58 mmHg
[2021-07-16 04:54] LABS: Venous Blood Gas Refer to POC result
[2021-07-16 05:04] LABS: Albumin Level 3.3 g/dL (3.5-5.0)
[2021-07-16 05:09] LABS: Basophils Percent Auto 0.1 % (0-2); Eosinophils Absolute Auto 0.3 X10*3/uL (0.0-0.4); Eosinophils Percent Auto 1.9 % (0-4); Hematocrit 37.8 % (37-47); Hemoglobin 11.3 g/dl (12.0-16.0); Imm Gran Pct Auto 0.6 % (0.0-0.4); Lymphocytes Absolute Auto 1.8 X10*3/uL (1.2-4.9); Lymphocytes Percent Auto 10.9 % (20-40); Mean Corpuscular HGB Conc 29.9 g/dl (31.0-35.0); Mean Corpuscular Hemoglobin 24.2 pg (27.0-33.0); Mean Corpuscular Volume 80.9 fL (80-98); Mean Platelet Volume 9.5 fL (9.4-12.3); Monocytes Absolute Auto 0.7 X10*3/uL (0.1-1.2); Monocytes Percent Auto 4.3 % (2-11); Neutrophils Absolute Auto 13.7 X10*3/uL (2.0-8.3); Neutrophils Percent Auto 82.2 % (45-73); Platelet Count 417 X10*3/uL (160-400); Red Blood Count 4.67 X10*6/uL (4.20-5.50); Red Cell Distribution Width 19.8 % (11.0-16.0); White Blood Count 16.7 X10*3/uL (4.8-10.8)
[2021-07-16 05:10] LABS: Anion Gap 16 (12-20); Blood Urea Nitrogen 20 mg/dL (9-16); Calcium 9.8 mg/dL (8.4-10.2); Carbon Dioxide 28 mmol/L (22-29); Chloride 102 mmol/L (96-108); Creatinine Clr Calc Pharmacy 96.9; Estimated Glomerular Filt Rate > 60; Glucose Random 134 mg/dL (60-115); Phosphorus 4.8 mg/dL (2.7-4.5); Sodium 142 mmol/L (135-145)
[2021-07-16] MEDS: Pantoprazole Sodium 40 MG/10 ML VIAL IVPUSH (05:53)
[2021-07-16] MEDS: Chlorhexidine Gluc Oral Rinse 15 ML MOUTHWASH BUCCAL ×3 (05:53→21:33)
[2021-07-16] MEDS: propofoL 1,000 MG/100 ML VIAL 15.22 MG IVCONT ×3 (05:55→17:55)
[2021-07-16 07:37] LABS: Glucose, Whole Blood 151 mg/dL (60-115)
[2021-07-16] MEDS: Enoxaparin Sodium 40 MG/0.4 ML SYRINGE SUBCUT (07:39)
[2021-07-16] MEDS: methylPREDNISolone Sod Succ 125 MG/2 ML VIAL 40 MG IVPUSH (07:39)
[2021-07-16] MEDS: Aspirin Enteric Coated 81 MG TABLET.DR PO (07:39)
[2021-07-16 12:40] LABS: Glucose, Whole Blood 200 mg/dL (60-115)
[2021-07-16] MEDS: Insulin Lispro 100 UNIT/ML 3 ML VIAL SUBCUT (12:40)
--- NOTE | 2021-07-16 15:08 | P.PNCC_ITS ---
Subjective Subjective Date of Service: 07/16/21 Interval History: 41-year-old female with hypoxemic respiratory failure due to COVID-19 pneumonitis and ARDS and was finally intubated last night currently on FiO2 of 90% and we because of dyssynchrony placed her on pressure control maintaining good tidal volumes in excess of 500 cc with very comfortable peak and plateau airway pressures in sinus tachycardia rate 10/27/1989 2% oxygen saturation and respiratory rate 18 Critical Care Time (minutes): 45 Physical Exam Vital Signs: Vital Signs: Last Vital Signs Temp 98.8 F 07/16/21 14:00 Pulse 118 H 07/16/21 14:00 Resp 15 07/16/21 14:00 BP 102/71 07/16/21 14:00 Pulse Ox 89 L 07/16/21 14:00 Body Mass Index 23.2 Sedated and intubated Bedside echocardiogram showing normal LV and RV function and no primary valve or pericardial disease Chest well expanded on chest x-ray with good ET tube and NG tube placement Skin intact Objective Data Labs CBC & Chem 7: 07/16/21 04:39 07/16/21 04:39 Labs: Laboratory Results - last 24 hr 07/15/21 07/15/21 07/15/21 16:50 21:38 21:54 WBC RBC Hgb Hct MCV MCH MCHC RDW Plt Count MPV Immature Gran % (Auto) Neut % (Auto) Lymph % (Auto) [place] % (Auto) Eos % (Auto) Baso % (Auto) Lymph # (Auto) [place] # (Auto) Eos # (Auto) Baso # (Auto) Abs Immat Gran (auto) Absolute Neuts (auto) Absolute Nucleated RBC Nucleated RBC % (auto) VBG pH 7.39 VBG pCO2 49 VBG pO2 54 VBG HCO3 30 H VBG O2 Saturation 76.0 VBG Base Excess 4.2 Sodium Potassium Chloride Carbon Dioxide Anion Gap BUN Creatinine Estim Creat Clear Calc Estimated GFR POC Glucose 170 H 143 H Random Glucose Calcium Phosphorus Magnesium Albumin 07/16/21 07/16/21 07/16/21 04:39 04:39 04:39 WBC 16.7 H RBC 4.67 Hgb 11.3 L Hct 37.8 MCV 80.9 MCH 24.2 L MCHC 29.9 L RDW 19.8 H Plt Count 417 H MPV 9.5 Immature Gran % (Auto) 0.6 H Neut % (Auto) 82.2 H Lymph % (Auto) 10.9 L [place] % (Auto) 4.3 Eos % (Auto) 1.9 Baso % (Auto) 0.1 Lymph # (Auto) 1.8 [place] # (Auto) 0.7 Eos # (Auto) 0.3 Baso # (Auto) 0.0 Abs Immat Gran (auto) 0.10 H Absolute Neuts (auto) 13.7 H Absolute Nucleated RBC 0.000 Nucleated RBC % (auto) 0.0 VBG pH VBG pCO2 VBG pO2 VBG HCO3 VBG O2 Saturation VBG Base Excess Sodium 142 Potassium 4.0 Chloride 102 Carbon Dioxide 28 Anion Gap 16 BUN 20 H Creatinine 0.68 Estim Creat Clear Calc 96.9 Estimated GFR > 60 POC Glucose Random Glucose 134 H Calcium 9.8 Phosphorus 4.8 H Magnesium 2.0 Albumin 3.3 L 07/16/21 07/16/21 07/16/21 04:44 07:34 12:36 WBC RBC Hgb Hct MCV MCH MCHC RDW Plt Count MPV Immature Gran % (Auto) Neut % (Auto) Lymph % (Auto) [place] % (Auto) Eos % (Auto) Baso % (Auto) Lymph # (Auto) [place] # (Auto) Eos # (Auto) Baso # (Auto) Abs Immat Gran (auto) Absolute Neuts (auto) Absolute Nucleated RBC Nucleated RBC % (auto) VBG pH 7.41 VBG pCO2 47 VBG pO2 58 VBG HCO3 30 H VBG O2 Saturation 83.0 VBG Base Excess 5.3 Sodium Potassium Chloride Carbon Dioxide Anion Gap BUN Creatinine Estim Creat Clear Calc Estimated GFR POC Glucose 151 H 200 H Random Glucose Calcium Phosphorus Magnesium Albumin Microbiology Microbiology Results: Microbiology 07/01/21 00:37 Blood - Venous Blood Culture - Final No growth after 5 days. 07/01/21 00:37 Blood - Venous Blood Culture - Final No growth after 5 days. 07/02/21 15:55 Urine clean catch - Urine ortiz top Urine Culture - Final Quality Stroke Does the patient have a stroke diagnosis?: No VTE Prior VTE?: No VTE Risk Level:: Medical - moderate - high VTE Device Contraindication: Treatment Not Indicated VTE Drug Contraindication: N/A - Med Ordered Progress Note: A&P Assessment and plan (1) Pneumomediastinum: Status: Acute (2) Anxiety: Status: Acute (3) Acute respiratory distress syndrome (ARDS) due to COVID-19 virus: Status: Acute (4) Acute respiratory failure with hypoxia: Status: Acute (5) Pneumonia due to COVID-19 virus: Status: Acute (6) COVID-19: Status: Acute (7) Breast mass: Status: Acute (8) Hypoxia: Status: Acute Assessment and Plan: Doing comfortably well for now will send surveillance cultures and follow-up c hest x-ray
[2021-07-16 18:15] LABS: Glucose, Whole Blood 129 mg/dL (60-115)
[2021-07-16 23:48] LABS: Glucose, Whole Blood 146 mg/dL (60-115)
[2021-07-17] VITALS (30 sets, daily range): BP systolic 88–118; BP diastolic 49–70; PULSE 64–141; RESP 12–25; TEMP 37–38.1; O2SAT 69–95; BMI 23.2
[2021-07-17] MEDS: fentaNYL citrate/NS 1,000 MCG/100 ML PLAST..BAG 20 MCG IVCONT ×6 (00:46→22:43)
[2021-07-17] MEDS: Midazolam HCl/PF 2 MG/2 ML VIAL IVPUSH ×2 (01:15→16:14)
--- NOTE | 2021-07-17 02:56 | PC.NURSE ---
Patient opening eyes when receiving care. Following commands when asked, answering by nodding head. Purposeful movement with bilateral upper extremities. Sedated on Fentanyl 200mcg/hr, Propofol 50 mcg/kg/hr. Versed 2 mg IVP x1 administered per order. Will continue to monitor.
[2021-07-17] MEDS: Phenylephrine HCL 20 MG in 0.9 % Sodium Chloride 250 ML 23.97 MG IVCONT ×2 (04:30→12:59)
[2021-07-17] MEDS: propofoL 1,000 MG/100 ML VIAL 15.22 MG IVCONT (05:00)
[2021-07-17 05:16] LABS: Basophils Absolute Auto 0.1 X10*3/uL (0.0-0.2); Basophils Percent Auto 0.2 % (0-2); Eosinophils Absolute Auto 0.6 X10*3/uL (0.0-0.4); Eosinophils Percent Auto 2.2 % (0-4); Hematocrit 35.9 % (37-47); Hemoglobin 10.7 g/dl (12.0-16.0); Imm Gran Abs Auto 0.24 X10*3/uL (0.00-0.03); Imm Gran Pct Auto 0.9 % (0.0-0.4); Lymphocytes Absolute Auto 2.4 X10*3/uL (1.2-4.9); Lymphocytes Percent Auto 8.4 % (20-40); MANUAL DIFF FLAG SCAN; Mean Corpuscular HGB Conc 29.8 g/dl (31.0-35.0); Mean Corpuscular Hemoglobin 24.4 pg (27.0-33.0); Mean Corpuscular Volume 81.8 fL (80-98); Mean Platelet Volume 9.7 fL (9.4-12.3); Monocytes Absolute Auto 0.9 X10*3/uL (0.1-1.2); Monocytes Percent Auto 3.3 % (2-11); Neutrophils Absolute Auto 23.9 X10*3/uL (2.0-8.3); Platelet Count 504 X10*3/uL (160-400); Red Blood Count 4.39 X10*6/uL (4.20-5.50); Red Cell Distribution Width 19.4 % (11.0-16.0); SCAN SMEAR FLAG 1; White Blood Count 28.1 X10*3/uL (4.8-10.8)
[2021-07-17 05:25] LABS: VBG Base Excess 3.5 mmol/L; VBG HCO3 29 mmol/L (22-26); VBG pCO2 53 mmHg; VBG pH 7.34 (7.32-7.43); VBG pO2 51 mmHg
[2021-07-17] MEDS: Midazolam HCl/PF 2 MG/2 ML VIAL 4 MG IVPUSH (05:26)
[2021-07-17 05:33] LABS: Anion Gap 12 (12-20); Blood Urea Nitrogen 19 mg/dL (9-16); Calcium 9.4 mg/dL (8.4-10.2); Carbon Dioxide 27 mmol/L (22-29); Chloride 102 mmol/L (96-108); Creatinine Clr Calc Pharmacy 94.2; Estimated Glomerular Filt Rate > 60; Glucose Random 165 mg/dL (60-115); Magnesium 1.7 mg/dL (1.6-2.6); Potassium 4.1 mmol/L (3.3-5.1); Sodium 137 mmol/L (135-145)
[2021-07-17 05:55] LABS: SLIDE REVIEW VERIFIED
[2021-07-17] MEDS: Chlorhexidine Gluc Oral Rinse 15 ML MOUTHWASH BUCCAL ×3 (06:20→22:32)
[2021-07-17] MEDS: Pantoprazole Sodium 40 MG/10 ML VIAL IVPUSH (06:20)
[2021-07-17 06:32] LABS: Venous Blood Gas Refer to POC result
--- NOTE | 2021-07-17 08:26 | PHA.PROG ---
Admission Date/Time: July 01, 2021 01:06 Indication: Respiratory Infection Weight in k.4 kg Adjusted body weight in K.56 [place] body weight in K Obesity Dosing Indication % IBW: Serum Creatinine - Last 168 Hours 07/11/21 07/12/21 07/13/21 05:25 05:22 05:29 Creatinine 0.62 0.58 0.59 07/14/21 07/15/21 07/16/21 05:41 05:54 04:39 Creatinine 0.62 0.66 0.68 07/17/21 05:01 Creatinine 0.70 Estimated CrCl and GFR - Last 168 Hours 07/11/21 07/12/21 07/13/21 05:25 05:22 05:29 Estim Creat Clear Calc 106.3 113.6 111.7 Estimated GFR > 60 > 60 > 60 07/14/21 07/15/21 07/16/21 05:41 05:54 04:39 Estim Creat Clear Calc 106.3 99.9 96.9 Estimated GFR > 60 > 60 > 60 07/17/21 05:01 Estim Creat Clear Calc 94.2 Estimated GFR > 60 Vancomycin Loading Dose: N/A Current Vancomycin Dosing Regimen: 100O mg IV Q12H Vancomycin Monitoring using AUC goal of 400 - 600 range with trough as surrogate marker: Predicted AUC of 486 mg/l.hr: trough 14.3 mg/l Date and Time for next Vancomycin Level to be drawn: draw 1 hour prior to dose due at 2000 on 07/18/2021 Pharmacist Comments on Vancomycin Plan: order for trough at 19:00 on 07/18 entered Vancomycin dosing will take advantage of [employer] as a clinical decision support tool that uses Bayesian modeling to calculate individual patient's pharmacokinetic parameters and forecast the patient's drug concentration time course with the target goal AUC 24 range of 400 - 600 mg/L/hr.
[2021-07-17] MEDS: propofoL 1,000 MG/100 ML VIAL 19.02 MG IVCONT ×5 (08:35→22:47)
[2021-07-17] MEDS: vancomycin HCL 1,000 MG in 0.9 % Sodium Chloride 250 ML 270 MG IV ×2 (08:35→19:34)
[2021-07-17] MEDS: Piperacillin Sodium/Tazobactam 4.5 GM in 0.9 % Sodium Chloride 100 ML IV ×3 (08:36→19:34)
[2021-07-17] MEDS: Enoxaparin Sodium 40 MG/0.4 ML SYRINGE SUBCUT (08:36)
[2021-07-17] MEDS: methylPREDNISolone Sod Succ 125 MG/2 ML VIAL 40 MG IVPUSH (08:36)
[2021-07-17] MEDS: 0.9 % Sodium Chloride Flush 3 ML SYRINGE IVFLUSH ×2 (08:36→16:44)
[2021-07-17] MEDS: Insulin Lispro 100 UNIT/ML 3 ML VIAL SUBCUT (11:07)
[2021-07-17 11:18] LABS: Glucose, Whole Blood 179 mg/dL (60-115)
--- NOTE | 2021-07-17 12:46 | MHC.CM.PN ---
pt remains in icu; currently intubated , sedated on mech. ventilator. dc planning deferred to a future time. cm to cont. to follow.
[2021-07-17 15:20] LABS: Glucose, Whole Blood 169 mg/dL (60-115)
--- NOTE | 2021-07-17 16:11 | PM.CCPN ---
Subjective Subjective Date of Service: 07/17/21 Interval History: 41-year-old female now nearly 3 weeks of [place] id positivity and hypoxemic respiratory failure from COVID pneumonitis/ARDS and now intubated for 2 days on FiO2 of 90% and unfortunately sedation is requiring maximum propofol as well as fentanyl and now the addition of Versed and today's chest x-ray looks somewhat worse and they noticed that there was suctioning feedings from the pharynx and probably adeno from above the ET tube balloon so I wonder whether not there might have been some aspiration due to penetration of the feeding so feedings were being held and antibiotics in 0 to cover her for a nosocomial and aspiration Current saturation 94% blood pressure 105/54 in sinus rhythm at 84 Critical Care Time (minutes): 45 Physical Exam Vital Signs: Vital Signs: Last Vital Signs Temp 99.3 F 07/17/21 15:00 Pulse 80 07/17/21 15:00 Resp 17 07/17/21 15:00 BP 94/58 L 07/17/21 15:00 Pulse Ox 93 07/17/21 15:00 Body Mass Index 23.2 Awakens and lock size so clearly there is cognitive function nonfocal neurologically Bedside echo with normal LV and RV function and no primary valve or pericardial disease Chest without accessory muscle use or diaphragmatic effort no adventitious sounds Abdomen soft with good bowel sounds and no organomegaly Skin intact Objective Data Labs CBC & Chem 7: 07/17/21 05:01 07/17/21 05:01 Labs: Laboratory Results - last 24 hr 07/16/21 07/16/21 07/17/21 17:57 23:38 05:01 WBC 28.1 H RBC 4.39 Hgb 10.7 L Hct 35.9 L MCV 81.8 MCH 24.4 L MCHC 29.8 L RDW 19.4 H Plt Count 504 H MPV 9.7 Immature Gran % (Auto) 0.9 H Neut % (Auto) 85.0 H Lymph % (Auto) 8.4 L [place] % (Auto) 3.3 Eos % (Auto) 2.2 Baso % (Auto) 0.2 Lymph # (Auto) 2.4 [place] # (Auto) 0.9 Eos # (Auto) 0.6 H Baso # (Auto) 0.1 Abs Immat Gran (auto) 0.24 H Absolute Neuts (auto) 23.9 H Absolute Nucleated RBC 0.000 Nucleated RBC % (auto) 0.0 Smear Tech's Comments VERIFIED VBG pH VBG pCO2 VBG pO2 VBG HCO3 VBG O2 Saturation VBG Base Excess Sodium Potassium Chloride Carbon Dioxide Anion Gap BUN Creatinine Estim Creat Clear Calc Estimated GFR POC Glucose 129 H 146 H Random Glucose Calcium Phosphorus Magnesium 07/17/21 07/17/21 07/17/21 05:01 05:19 06:27 WBC RBC Hgb Hct MCV MCH MCHC RDW Plt Count MPV Immature Gran % (Auto) Neut % (Auto) Lymph % (Auto) [place] % (Auto) Eos % (Auto) Baso % (Auto) Lymph # (Auto) [place] # (Auto) Eos # (Auto) Baso # (Auto) Abs Immat Gran (auto) Absolute Neuts (auto) Absolute Nucleated RBC Nucleated RBC % (auto) Smear Tech's Comments VBG pH 7.34 VBG pCO2 53 VBG pO2 51 VBG HCO3 29 H VBG O2 Saturation 76.0 VBG Base Excess 3.5 Sodium 137 Potassium 4.1 Chloride 102 Carbon Dioxide 27 Anion Gap 12 BUN 19 H Creatinine 0.70 Estim Creat Clear Calc 94.2 Estimated GFR > 60 POC Glucose 169 H Random Glucose 165 H Calcium 9.4 Phosphorus 4.0 Magnesium 1.7 07/17/21 11:04 WBC RBC Hgb Hct MCV MCH MCHC RDW Plt Count MPV Immature Gran % (Auto) Neut % (Auto) Lymph % (Auto) [place] % (Auto) Eos % (Auto) Baso % (Auto) Lymph # (Auto) [place] # (Auto) Eos # (Auto) Baso # (Auto) Abs Immat Gran (auto) Absolute Neuts (auto) Absolute Nucleated RBC Nucleated RBC % (auto) Smear Tech's Comments VBG pH VBG pCO2 VBG pO2 VBG HCO3 VBG O2 Saturation VBG Base Excess Sodium Potassium Chloride Carbon Dioxide Anion Gap BUN Creatinine Estim Creat Clear Calc Estimated GFR POC Glucose 179 H Random Glucose Calcium Phosphorus Magnesium Microbiology Microbiology Results: Microbiology 07/17/21 09:48 Sputum - Suctioned Gram Stain - Final 07/01/21 00:37 Blood - Venous Blood Culture - Final No growth after 5 days. 07/01/21 00:37 Blood - Venous Blood Culture - Final No growth after 5 days. 07/02/21 15:55 Urine clean catch - Urine ortiz top Urine Culture - Final Quality Stroke Does the patient have a stroke diagnosis?: No VTE Prior VTE?: No VTE Risk Level:: Medical - moderate - high VTE Device Contraindication: Treatment Not Indicated VTE Drug Contraindication: N/A - Med Ordered Progress Note: A&P Assessment and plan (1) Pneumomediastinum: Status: Acute (2) Anxiety: Status: Acute (3) Acute respiratory distress syndrome (ARDS) due to COVID-19 virus: Status: Acute (4) Acute respiratory failure with hypoxia: Status: Acute (5) Pneumonia due to COVID-19 virus: Status: Acute (6) COVID-19: Status: Acute (7) Breast mass: Status: Acute (8) Hypoxia: Status: Acute Assessment and Plan: So currently on antibiotic coverage for nosocomial aspiration and the original a complication of pneumomediastinum does not seem to have recurred despite positive-pressure
[2021-07-17] MEDS: Midazolam HCl/NS 50 MG/50 ML PLAST..BAG IVCONT (16:14)
[2021-07-17 18:02] LABS: Glucose, Whole Blood 143 mg/dL (60-115)
[2021-07-17] MEDS: Phenylephrine HCL 20 MG in 0.9 % Sodium Chloride 250 ML 47.93 MG IVCONT (22:43)
[2021-07-18] VITALS (30 sets, daily range): BP systolic 96–137; BP diastolic 42–75; PULSE 62–96; RESP 12–16; TEMP 36.1–37.9; O2SAT 88–98; BMI 23.1
[2021-07-18 00:17] LABS: Glucose, Whole Blood 102 mg/dL (60-115)
[2021-07-18] MEDS: 0.9 % Sodium Chloride Flush 3 ML SYRINGE IVFLUSH ×3 (00:17→14:41)
[2021-07-18] MEDS: Piperacillin Sodium/Tazobactam 4.5 GM in 0.9 % Sodium Chloride 100 ML IV ×4 (02:11→18:25)
[2021-07-18] MEDS: fentaNYL citrate/NS 1,000 MCG/100 ML PLAST..BAG 20 MCG IVCONT ×2 (03:47→08:35)
[2021-07-18] MEDS: Midazolam HCl/NS 50 MG/50 ML PLAST..BAG IVCONT (03:47)
[2021-07-18] MEDS: propofoL 1,000 MG/100 ML VIAL 19.02 MG IVCONT ×5 (03:47→21:20)
[2021-07-18] MEDS: Phenylephrine HCL 20 MG in 0.9 % Sodium Chloride 250 ML 71.9 MG IVCONT ×3 (05:03→22:55)
[2021-07-18] MEDS: Pantoprazole Sodium 40 MG/10 ML VIAL IVPUSH (05:17)
[2021-07-18] MEDS: Chlorhexidine Gluc Oral Rinse 15 ML MOUTHWASH BUCCAL ×3 (05:17→23:29)
[2021-07-18 05:34] LABS: VBG Base Excess 1.3 mmol/L; VBG HCO3 27 mmol/L (22-26); VBG pCO2 48 mmHg; VBG pH 7.35 (7.32-7.43); VBG pO2 47 mmHg
[2021-07-18 05:42] LABS: MANUAL DIFF FLAG NO
[2021-07-18 05:43] LABS: Basophils Absolute Auto 0.1 X10*3/uL (0.0-0.2); Basophils Percent Auto 0.2 % (0-2); Eosinophils Absolute Auto 0.9 X10*3/uL (0.0-0.4); Eosinophils Percent Auto 3.8 % (0-4); Hematocrit 33.7 % (37-47); Hemoglobin 9.9 g/dl (12.0-16.0); Imm Gran Abs Auto 0.16 X10*3/uL (0.00-0.03); Imm Gran Pct Auto 0.7 % (0.0-0.4); Lymphocytes Absolute Auto 1.8 X10*3/uL (1.2-4.9); Lymphocytes Percent Auto 7.8 % (20-40); Mean Corpuscular HGB Conc 29.4 g/dl (31.0-35.0); Mean Corpuscular Hemoglobin 24.4 pg (27.0-33.0); Mean Platelet Volume 9.5 fL (9.4-12.3); Monocytes Absolute Auto 0.6 X10*3/uL (0.1-1.2); Monocytes Percent Auto 2.7 % (2-11); Neutrophils Absolute Auto 19.9 X10*3/uL (2.0-8.3); Neutrophils Percent Auto 84.8 % (45-73); Platelet Count 410 X10*3/uL (160-400); Red Blood Count 4.06 X10*6/uL (4.20-5.50); Red Cell Distribution Width 19.6 % (11.0-16.0); White Blood Count 23.5 X10*3/uL (4.8-10.8)
[2021-07-18 06:10] LABS: Albumin Level 2.8 g/dL (3.5-5.0); Anion Gap 11 (12-20); Blood Urea Nitrogen 12 mg/dL (9-16); Calcium 8.8 mg/dL (8.4-10.2); Carbon Dioxide 29 mmol/L (22-29); Chloride 107 mmol/L (96-108); Creatinine Clr Calc Pharmacy 115.7; Estimated Glomerular Filt Rate > 60; Glucose Random 104 mg/dL (60-115); Magnesium 1.6 mg/dL (1.6-2.6); Potassium 3.8 mmol/L (3.3-5.1); Sodium 143 mmol/L (135-145)
[2021-07-18 06:36] LABS: Glucose, Whole Blood 105 mg/dL (60-115)
[2021-07-18 06:44] LABS: Venous Blood Gas Refer to POC result
[2021-07-18] MEDS: vancomycin HCL 1,000 MG in 0.9 % Sodium Chloride 250 ML 270 MG IV ×2 (08:26→20:29)
[2021-07-18] MEDS: methylPREDNISolone Sod Succ 125 MG/2 ML VIAL 40 MG IVPUSH (08:26)
[2021-07-18] MEDS: Enoxaparin Sodium 40 MG/0.4 ML SYRINGE SUBCUT (08:26)
--- NOTE | 2021-07-18 10:08 | MHC.CLN ---
F/U PT IS NOW INTUBATED AND SEDATED PT WAS RECEIVING TF GLUCERNA AT MAX GOAL OF 40ML/HR WITH 240CC Q 4 HRS PROVIDED 960KCALS, 40G PROTEIN, 2259CC TOTAL WATER RECOMMEND TF PROMOTE AT MAX GOAL RATE 60ML/HR WITH 240CC FREE WATER Q SHIFT TO PROVIDE 1440KCALS (1942KCALS WITH SEDATION; 30.8KCALS/KG), 90G PROTEIN (1.4G/KG), 1928CC TOTAL WATER FROM FORMULA AND FLUSHES (30.6ML/KG) MONITOR TOLERANCE, RESIDUALS AND LYTES SEE ALSO CLINICAL NUTRITION ASSESSMENT
[2021-07-18 11:40] LABS: Glucose, Whole Blood 153 mg/dL (60-115)
[2021-07-18] MEDS: Phenylephrine HCL 20 MG in 0.9 % Sodium Chloride 250 ML 47.93 MG IVCONT ×2 (13:18→18:25)
--- NOTE | 2021-07-18 14:38 | P.PNCC_ITS ---
Subjective Subjective Date of Service: 07/18/21 Interval History: Mrs. Astudillo was transferred to the ICU Jul 02 with hypoxemic respiratory failure 2? COVID pneumonia. The patient is a 41-year-old woman with limited past medical history of only nephrolithiasis.? She also has a history of breast biopsy and laparoscopic cholecystectomy.? She takes no medications on the outside.? She is [place]- speaking only. She presented to the ED on 06/30 with a 9 day history of nausea, vomiting, shortness of breath, cough, fever, and pleuritic chest pain.? Reportedly, she tested positive for COVID (elsewhere) on June 26.? (I?m assuming symptom onset date approx. June 21.)? According to the patient?s , everyone in the family had COVID; they were all unvaccinated. In the ED, Sat was 93% on room air.? CXR showed typical bilat COVID infitrates.? CTPA notable for moderate severity typical bilat COVID infiltrates.? No PE or right heart strain.? Incidental finding on the CT scan were deep bilateral breast masses with central calcification.? Labs in the ED showed low-normal white count with mild leukopenia.? Chemistries were unremarkable except for mild hyperglycemia; no biomarkers were sent. She was admitted to Medicine and treated with dexamethasone.? She was not given remdesivir.? Her oxygen requirement escalated rapidly and within 36 hrs she was on HFNC 100%.? That morning (07/02), she was transferred to the ICU.? Bec of her rapid FiO2 escalation and her CT scan, her risk of was judged to be not insubstantial.? She was therefore started on the full EVMS protocol, including ivermectin and Solumedrol 80mg bid, plus vit D, vit C, ASA, thiamine, and zinc. She had a progressive course of increasing oxygen requirement, escalating through HFNC w NRBFM, then NIV.? Anxiety was a major feature of her clinical course.? Mult agents (in addition to fentanyl) were tried, including Ativan, ketamine, and Precedex, with not very great success.? On Jul 08, new pneumomediastinum was detected on CT scan, which also showed much worse COVID infiltrates.? It did not worsen and was not seen on subsequent films.? The patient was ultimately intubated on Jul 15.? Her CXR has progressively worsened. Yesterday she had a low grade fever, her WBC bumped, and her CXR looked worse, with more bilat lower lobe opacity.? Tube feeds were suctioned from her oropharynx, and it was thought that she might have aspirated.? She was started on vancomycin and Zosyn. Today, she is moderately sedated on propofol 50ug, fentanyl 150 ug, and Versed at 2mg.? She grimaces to stimulation and has a gag reflex.? HR is 64, SR.? BP 122/65 on phenylephrine at 1 mcg.? On AC/PC 16, 16/10, 100%, RR was 16, Vt 350cc, Ve 4.2L, PIP 28cm, ETCO2 44, Sat 99%.? This morning central venous blood gas showed 7.35/48/+1.? With the FiO2 down to 80%, Sat was 96%, and w FiO2 70%, Sat was 95%.? Pupils equal and round, 3 mm.? No jugular venous distention with the head of the bed at 30 degrees.? Chest is clear to auscultation, with a normal expiratory phase.? Heart rate and rhythm are regular, with normal- sounding S1 and S2, with no murmur or gallops.? The abdomen is benign.? She has trace peripheral edema. LABORATORY DATA:? As below.? Notably, white count is down to 23, BUN and creatinine are down to 12/0.5, POCs are in the 100s. Biomarkers:? None recently MICROBIOLOGY:? Sputum yesterday showed 4+ polys, 3+ Gram-positive cocci.? Currently growing 4+ staph aureus.? Sensitivities pending. IMAGING:? As detailed above. ECHO yesterday by Dr. Ponce was looked normal. IMPRESSION:? Generally previously healthy woman. 1. Mild obesity. 2. COVID-19 pneumonia.? Assume symptom onset date June 21.? SARs CoV 2 IgG on 07/01 was negative.? She?s on Solumedrol 80mg bid and ASA.? She?s had two days of ivermectin.? I will change her ASA to 325 mg daily and add Vit D, Vit C, Pepcid, thiamine, and zinc. 3. Acute hypoxemic respiratory failure.? Secondary to above.? Markedly improved oxygenation today, for unclear reasons.? Continue to taper FiO2 as kimani.? Will likely need tracheostomy.? But we?ll wait until FiO2 is solidly down to 50%. 4. ID:? Very positive Gram stain and culture.? WBC and temp are down after the abx.? Oxygenation is improved.? It?s reasonable to continue broad-spectrum antibacterial abx for now. 5. Hyperglycemia.? Hb A1c was 6.0%, which is the upp limit of normal.? So she probably has borderline DM.? Now aggravated by the steroids.? Currently on SS insulin. 6. Incidental breast masses on CT.? Based on her hx, I?m guessing that these are known, but they require f/u by her PMD after dischg. Critical care time:? 70+ min. Critical Care Time (minutes): 70 Physical Exam Vital Signs: Vital Signs: Last Vital Signs Temp 99.1 F 07/18/21 14:00 Pulse 62 07/18/21 14:00 Resp 12 07/18/21 14:00 BP 116/66 07/18/21 14:00 Pulse Ox 95 07/18/21 14:00 Body Mass Index 23.1 Objective Data Labs CBC & Chem 7: 07/18/21 05:25 07/18/21 05:25 Labs: Laboratory Results - last 24 hr 07/17/21 07/17/21 07/17/21 06:27 17:58 23:56 WBC RBC Hgb Hct MCV MCH MCHC RDW Plt Count MPV Immature Gran % (Auto) Neut % (Auto) Lymph % (Auto) [place] % (Auto) Eos % (Auto) Baso % (Auto) Lymph # (Auto) [place] # (Auto) Eos # (Auto) Baso # (Auto) Abs Immat Gran (auto) Absolute Neuts (auto) Absolute Nucleated RBC Nucleated RBC % (auto) VBG pH VBG pCO2 VBG pO2 VBG HCO3 VBG O2 Saturation VBG Base Excess Sodium Potassium Chloride Carbon Dioxide Anion Gap BUN Creatinine Estim Creat Clear Calc Estimated GFR POC Glucose 169 H 143 H 102 Random Glucose Calcium Phosphorus Magnesium Albumin 07/18/21 07/18/21 07/18/21 05:25 05:25 05:29 WBC 23.5 H RBC 4.06 L Hgb 9.9 L Hct 33.7 L MCV 83.0 MCH 24.4 L MCHC 29.4 L RDW 19.6 H Plt Count 410 H MPV 9.5 Immature Gran % (Auto) 0.7 H Neut % (Auto) 84.8 H Lymph % (Auto) 7.8 L [place] % (Auto) 2.7 Eos % (Auto) 3.8 Baso % (Auto) 0.2 Lymph # (Auto) 1.8 [place] # (Auto) 0.6 Eos # (Auto) 0.9 H Baso # (Auto) 0.1 Abs Immat Gran (auto) 0.16 H Absolute Neuts (auto) 19.9 H Absolute Nucleated RBC 0.000 Nucleated RBC % (auto) 0.0 VBG pH 7.35 VBG pCO2 48 VBG pO2 47 VBG HCO3 27 H VBG O2 Saturation 74.0 VBG Base Excess 1.3 Sodium 143 Potassium 3.8 Chloride 107 Carbon Dioxide 29 Anion Gap 11 L BUN 12 Creatinine 0.57 Estim Creat Clear Calc 115.7 Estimated GFR > 60 POC Glucose Random Glucose 104 Calcium 8.8 D Phosphorus 3.0 Magnesium 1.6 Albumin 2.8 L 07/18/21 07/18/21 06:26 11:35 WBC RBC Hgb Hct MCV MCH MCHC RDW Plt Count MPV Immature Gran % (Auto) Neut % (Auto) Lymph % (Auto) [place] % (Auto) Eos % (Auto) Baso % (Auto) Lymph # (Auto) [place] # (Auto) Eos # (Auto) Baso # (Auto) Abs Immat Gran (auto) Absolute Neuts (auto) Absolute Nucleated RBC Nucleated RBC % (auto) VBG pH VBG pCO2 VBG pO2 VBG HCO3 VBG O2 Saturation VBG Base Excess Sodium Potassium Chloride Carbon Dioxide Anion Gap BUN Creatinine Estim Creat Clear Calc Estimated GFR POC Glucose 105 153 H Random Glucose Calcium Phosphorus Magnesium Albumin Microbiology Microbiology Results: Microbiology 07/17/21 09:48 Sputum - Suctioned Gram Stain - Final 07/17/21 09:48 Sputum - Suctioned Sputum Culture - Preliminary Staphylococcus aureus 07/01/21 00:37 Blood - Venous Blood Culture - Final No growth after 5 days. 07/01/21 00:37 Blood - Venous Blood Culture - Final No growth after 5 days. 07/02/21 15:55 Urine clean catch - Urine rotiz top Urine Culture - Final Quality Stroke Does the patient have a stroke diagnosis?: No VTE Prior VTE?: No VTE Risk Level:: Medical - moderate - high VTE Device Contraindication: Treatment Not Indicated VTE Drug Contraindication: N/A - Med Ordered Critical Care Time Critical Care Time (minutes): 60
[2021-07-18] MEDS: fentaNYL citrate/NS 1,000 MCG/100 ML PLAST..BAG 15 MCG IVCONT ×2 (14:40→21:20)
[2021-07-18] MEDS: Metoclopramide HCl 10 MG/2 ML VIAL IVPUSH ×2 (14:41→19:35)
[2021-07-18] MEDS: QUEtiapine Fumarate 50 MG TABLET PO ×2 (14:41→20:28)
[2021-07-18] MEDS: Zinc Sulfate 220 MG CAPSULE PO (18:25)
[2021-07-18] MEDS: Magnesium Sulfate/H2O 2 GM/50 ML PIGGYBACK IV (18:25)
[2021-07-18] MEDS: Cholecalciferol (Vitamin D3) 25 MCG TABLET 50 MCG PO (18:25)
[2021-07-18] MEDS: Ascorbic Acid 500 MG TABLET 1000 MG PO (18:25)
[2021-07-18 18:48] LABS: Glucose, Whole Blood 131 mg/dL (60-115)
[2021-07-18 19:59] LABS: Vancomycin Trough 7.6 mcg/mL (10.0-20.0)
[2021-07-18] MEDS: Famotidine 20 MG TABLET 40 MG PO (20:28)
[2021-07-18] MEDS: methylPREDNISolone Sod Succ 125 MG/2 ML VIAL 80 MG IVPUSH (20:28)
[2021-07-18] MEDS: Thiamine HCL 100 MG TABLET 200 MG PO (20:28)
[2021-07-19] VITALS (33 sets, daily range): BP systolic 94–136; BP diastolic 47–79; PULSE 48–150; RESP 12–33; TEMP 36.9–37.4; O2SAT 85–95; BMI 25.0
[2021-07-19] MEDS: 0.9 % Sodium Chloride Flush 3 ML SYRINGE IVFLUSH ×3 (00:03→13:18)
[2021-07-19] MEDS: Ascorbic Acid 500 MG TABLET 1000 MG PO ×5 (00:05→23:47)
[2021-07-19] MEDS: Piperacillin Sodium/Tazobactam 4.5 GM in 0.9 % Sodium Chloride 100 ML IV ×3 (00:10→13:17)
[2021-07-19] MEDS: Insulin Lispro 100 UNIT/ML 3 ML VIAL SUBCUT ×5 (01:03→23:47)
[2021-07-19] MEDS: Metoclopramide HCl 10 MG/2 ML VIAL IVPUSH ×2 (01:04→08:35)
[2021-07-19] MEDS: Phenylephrine HCL 20 MG in 0.9 % Sodium Chloride 250 ML 62.31 MG IVCONT (02:09)
[2021-07-19] MEDS: propofoL 1,000 MG/100 ML VIAL 19.02 MG IVCONT ×3 (02:10→20:10)
[2021-07-19] MEDS: fentaNYL citrate/NS 1,000 MCG/100 ML PLAST..BAG 15 MCG IVCONT ×2 (02:10→08:36)
[2021-07-19 04:40] LABS: Glucose, Whole Blood 163 mg/dL (60-115)
[2021-07-19] MEDS: Chlorhexidine Gluc Oral Rinse 15 ML MOUTHWASH BUCCAL ×3 (05:11→20:09)
[2021-07-19] MEDS: Phenylephrine HCL 20 MG in 0.9 % Sodium Chloride 250 ML 38.34 MG IVCONT (05:12)
[2021-07-19 05:31] LABS: VBG HCO3 24 mmol/L (22-26); VBG pCO2 42 mmHg; VBG pH 7.36 (7.32-7.43); VBG pO2 52 mmHg
[2021-07-19 05:42] LABS: Hematocrit 29.8 % (37-47); Hemoglobin 8.9 g/dl (12.0-16.0); Mean Corpuscular HGB Conc 29.9 g/dl (31.0-35.0); Mean Corpuscular Hemoglobin 24.8 pg (27.0-33.0); Mean Platelet Volume 9.5 fL (9.4-12.3); Platelet Count 291 X10*3/uL (160-400); Red Blood Count 3.59 X10*6/uL (4.20-5.50); Red Cell Distribution Width 19.4 % (11.0-16.0); White Blood Count 14.3 X10*3/uL (4.8-10.8)
[2021-07-19 05:54] LABS: D Dimer 715 NG/ML
[2021-07-19 06:02] LABS: Alanine Aminotransferase 29 U/L (0-31); Albumin Level 2.7 g/dL (3.5-5.0); Alkaline Phosphatase 98 U/L (39-117); Anion Gap 12 (12-20); Aspartate Amino Transferase 20 U/L (5-31); Bilirubin Total 0.2 mg/dL (0.0-1.0); Blood Urea Nitrogen 12 mg/dL (9-16); C Reactive Protein 5.34 mg/dL (< or = 0.50); Calcium 8.3 mg/dL (8.4-10.2); Carbon Dioxide 25 mmol/L (22-29); Chloride 107 mmol/L (96-108); Creatinine Clr Calc Pharmacy 115.7; Estimated Glomerular Filt Rate > 60; Glucose Random 192 mg/dL (60-115); Magnesium 1.9 mg/dL (1.6-2.6); Potassium 3.7 mmol/L (3.3-5.1); Sodium 140 mmol/L (135-145); Total Protein 5.7 g/dL (6.5-8.0)
[2021-07-19 06:10] LABS: B Type Natriuretic Peptide 134 pg/mL (<100)
[2021-07-19 06:30] LABS: Venous Blood Gas Refer to POC result
[2021-07-19 06:31] LABS: Ferritin 163 ng/mL (10-250)
[2021-07-19 06:45] LABS: Glucose, Whole Blood 186 mg/dL (60-115)
[2021-07-19 06:53] LABS: Procalcitonin 0.04 ng/mL
--- NOTE | 2021-07-19 07:48 | PHA.PROG ---
Admission Date/Time: July 01, 2021 01:06 Indication: Respitory Infection Weight in k.4 kg Adjusted body weight in Kg: [place] body weight in Kg: Obesity Dosing Indication % IBW: Serum Creatinine - Last 168 Hours 07/13/21 07/14/21 07/15/21 05:29 05:41 05:54 Creatinine 0.59 0.62 0.66 07/16/21 07/17/21 07/18/21 04:39 05:01 05:25 Creatinine 0.68 0.70 0.57 07/19/21 05:22 Creatinine 0.57 Estimated CrCl and GFR - Last 168 Hours 07/13/21 07/14/21 07/15/21 05:29 05:41 05:54 Estim Creat Clear Calc 111.7 106.3 99.9 Estimated GFR > 60 > 60 > 60 07/16/21 07/17/21 07/18/21 04:39 05:01 05:25 Estim Creat Clear Calc 96.9 94.2 115.7 Estimated GFR > 60 > 60 > 60 07/19/21 05:22 Estim Creat Clear Calc 115.7 Estimated GFR > 60 Vancomycin Loading Dose: Current Vancomycin Dosing Regimen: 1000 mg Q12H Vancomycin Monitoring using AUC goal of 400 - 600 range with trough as surrogate marker: 365 mg/k.hr Date and Time for next Vancomycin Level to be drawn: 07/20 @0700 Vancomycin Trough 7.6 mcg/mL (10.0-20.0) L 07/18/21 19:25 Pharmacist Comments on Vancomycin Plan: Current regimen resulted in a low trough and AUC, I recommend dosing 1250 mg Q12H which is predicted to give a 11.6 trough and a AUC of 455. Vancomycin dosing will take advantage of [employer] as a clinical decision support tool that uses Bayesian modeling to calculate individual patient's pharmacokinetic parameters and forecast the patient's drug concentration time course with the target goal AUC 24 range of 400 - 600 mg/L/hr.
[2021-07-19] MEDS: methylPREDNISolone Sod Succ 125 MG/2 ML VIAL 80 MG IVPUSH ×2 (08:35→20:09)
[2021-07-19] MEDS: Enoxaparin Sodium 40 MG/0.4 ML SYRINGE SUBCUT (08:35)
[2021-07-19] MEDS: vancomycin HCL 1,250 MG in 0.9 % Sodium Chloride 250 ML 166.67 MG IV (08:35)
[2021-07-19] MEDS: QUEtiapine Fumarate 50 MG TABLET PO (08:37)
[2021-07-19] MEDS: Aspirin Enteric Coated 325 MG TABLET.DR PO (08:37)
[2021-07-19] MEDS: Zinc Sulfate 220 MG CAPSULE PO (08:37)
[2021-07-19] MEDS: Famotidine 20 MG TABLET 40 MG PO ×2 (08:37→20:10)
[2021-07-19] MEDS: Cholecalciferol (Vitamin D3) 25 MCG TABLET 50 MCG PO (08:37)
[2021-07-19] MEDS: Thiamine HCL 100 MG TABLET 200 MG PO ×2 (08:37→20:10)
[2021-07-19] MEDS: Phenylephrine HCL 20 MG in 0.9 % Sodium Chloride 250 ML 28.76 MG IVCONT (11:00)
[2021-07-19] MEDS: propofoL 1,000 MG/100 ML VIAL 15.22 MG IVCONT ×2 (11:00→16:10)
[2021-07-19 11:47] LABS: Glucose, Whole Blood 163 mg/dL (60-115)
[2021-07-19] MEDS: fentaNYL citrate/NS 1,000 MCG/100 ML PLAST..BAG 10 MCG IVCONT (15:23)
--- NOTE | 2021-07-19 15:41 | MHC.CM.PN ---
Pt continues in ICU with COVID necessitated intubation. Per discussion at rounds, it is highly probable that pt will need a trach for continued respiratory care. Referred to [facility] in light of this information: pt will need a payor - she is eligible for a [employer] plan and/or an add on to her spouses policy as of 08/08/21. Will follow for finalization of d/c plan.
--- NOTE | 2021-07-19 16:39 | P.PNCC_ITS ---
Subjective Subjective Date of Service: 07/19/21 Interval History: Mrs. Astudillo was transferred to the ICU Jul 02 with hypoxemic respiratory failure 2? COVID pneumonia. The patient is a 41-year-old woman with limited past medical history of only nephrolithiasis.? She also has a history of breast biopsy and laparoscopic cholecystectomy.? She takes no medications on the outside.? She is [place]- speaking only. She presented to the ED on 06/30 with a 9 day history of nausea, vomiting, shortness of breath, cough, fever, and pleuritic chest pain.? Reportedly, she tested positive for COVID (elsewhere) on June 26.? (I?m assuming symptom onset date approx. June 21.)? According to the patient?s , everyone in the family had COVID; they were all unvaccinated. In the ED, Sat was 93% on room air.? CXR showed typical bilat COVID infitrates.? CTPA notable for moderate severity typical bilat COVID infiltrates.? No PE or right heart strain.? Incidental finding on the CT scan were deep bilateral breast masses with central calcification.? Labs in the ED showed low-normal white count with mild leukopenia.? Chemistries were unremarkable except for mild hyperglycemia; no biomarkers were sent. She was admitted to Medicine and treated with dexamethasone.? She was not given remdesivir.? Her oxygen requirement escalated rapidly and within 36 hrs she was on HFNC 100%.? That morning (07/02), she was transferred to the ICU.? Bec of her rapid FiO2 escalation and her CT scan, her risk of was judged to be not insubstantial.? She was therefore started on the full EVMS protocol, including ivermectin and Solumedrol 80mg bid, plus vit D, vit C, ASA, thiamine, and zinc. She had a progressive course of increasing oxygen requirement, escalating through HFNC w NRBFM, then NIV.? Anxiety was a major feature of her clinical course.? Mult agents (in addition to fentanyl) were tried, including Ativan, ketamine, and Precedex, with not very great success.? On Jul 08, new pneumomediastinum was detected on CT scan.? The scan also showed much worse CO VID infiltrates.? The pneumomediastinum did not worsen, and was not seen on subsequent films.? The patient was ultimately intubated on Jul 15.? Her CXR has progressively worsened. On July 17, she had a low grade fever, her WBC bumped, and her CXR looked worse, with more bilat lower lobe opacity, although oxygenation was not worse.? Tube feeds were suctioned from her oropharynx, and it was thought that she might have aspirated.? She was started on vancomycin and Zosyn. Yesterday, we were able to easily get her FiO2 down to 70%, and even 60% for a brief period. ?We stop the Versed infusion she was on, and started her on Seroquel. ?Today, on propofol 40 mcg and fentanyl 100 ug, along with the Seroquel 50 mg bid she is inconsistently interactive, sometimes remarkably appropriately so.? After turning and cleaning her this afternoon, heart rate is 87, SR.? BP 118/59 on phenylephrine at 0.6 mcg.? On AC/PC 16, 16/10, 75%, RR is 24, Vt 430cc, Ve 10L, PIP 28cm, ETCO2 26, Sat 90%.? This morning?s CVBG showed 7.36/42/-1.? She is afebrile.? No jugular venous distention with the head of the bed at 30 degrees.? Normal expiratory phase. LABORATORY DATA:? As below.? Notably, white count is way down to 14, BUN/creatinine steady, POCs are in the high 100s. Biomarkers:? D-dimer down to 715, ferritin steady at 163, CRP up to 5.3, procalcitonin 0.04. MICROBIOLOGY:? Sputum from July 17 showed 4+ polys, 3+ Gram-positive cocci, grew 4+ MSSA. IMAGING:? As detailed above. ECHO Jul [address] Ponce was looked normal. IMPRESSION:? Generally previously healthy woman. 1. Mild obesity. 2. COVID-19 pneumonia.? Symptom onset date estimated to be June 21.? SARs CoV 2 IgG on 07/01 was negative.? She?s on Solumedrol 80mg bid and ASA.? She had two days of ivermectin two weeks ago.? I changed her ASA to 325 mg daily and added Vit D, Vit C, Pepcid, thiamine, and zinc. 3. Acute hypoxemic respiratory failure.? Secondary to above.? Markedly improved oxygenation yesterday, for unclear reasons.? Continue to taper FiO2 as kimani.? Will likely need tracheostomy.? But we?ll wait until FiO2 is solidly down to the 50-60% range. 4. ID:? Very positive Gram stain and culture.? WBC and temp are down after the abx and oxygenation is improved.? Can?t say for certain that she has a staph ?pneumonia?, but it?s appropriate to treat her with anti-staphylococcal abx.? We will discontinue the vancomycin and Zosyn and give her another 3 days of cefazolin. 5. Hyperglycemia.? Hb A1c was 6.0%, which is the upp limit of normal.? So she probably has borderline DM.? Now aggravated by the steroids.? Currently on SS insulin. 6. Tube feed intolerance.? Gave her four doses of Reglan, fixed the problem.? Low residuals today. 7. Nutrition.? On Promote @ 60cc/hr. 8. Incidental breast masses on CT.? Based on her hx, I?m guessing that these are known, but they require f/u by her PMD after dischg.? Critical care time:? 50+ min. Critical Care Time (minutes): 50 Physical Exam Vital Signs: Vital Signs: Last Vital Signs Temp 99.1 F 07/19/21 16:00 Pulse 113 H 07/19/21 16:00 Resp 31 H 07/19/21 16:00 BP 118/59 L 07/19/21 16:00 Pulse Ox 86 L 07/19/21 16:00 Body Mass Index 25.0 Objective Data Labs CBC & Chem 7: 07/19/21 05:22 07/19/21 05:22 Labs: Laboratory Results - last 24 hr 07/18/21 07/18/21 07/19/21 18:37 19:25 00:11 WBC RBC Hgb Hct MCV MCH MCHC RDW Plt Count MPV Absolute Nucleated RBC Nucleated RBC % (auto) D-Dimer VBG pH VBG pCO2 VBG pO2 VBG HCO3 VBG O2 Saturation VBG Base Excess Sodium Potassium Chloride Carbon Dioxide Anion Gap BUN Creatinine Estim Creat Clear Calc Estimated GFR POC Glucose 131 H 163 H Random Glucose Calcium Magnesium Ferritin Total Bilirubin AST ALT Alkaline Phosphatase C-Reactive Protein B-Natriuretic Peptide Total Protein Albumin Procalcitonin Vancomycin Trough 7.6 L 07/19/21 07/19/21 07/19/21 05:17 05:22 05:22 WBC 14.3 H RBC 3.59 L Hgb 8.9 L Hct 29.8 L MCV 83.0 MCH 24.8 L MCHC 29.9 L RDW 19.4 H Plt Count 291 D MPV 9.5 Absolute Nucleated RBC 0.000 Nucleated RBC % (auto) 0.0 D-Dimer 715 VBG pH VBG pCO2 VBG pO2 VBG HCO3 VBG O2 Saturation VBG Base Excess Sodium Potassium Chloride Carbon Dioxide Anion Gap BUN Creatinine Estim Creat Clear Calc Estimated GFR POC Glucose 186 H Random Glucose Calcium Magnesium Ferritin Total Bilirubin AST ALT Alkaline Phosphatase C-Reactive Protein B-Natriuretic Peptide Total Protein Albumin Procalcitonin Vancomycin Trough 07/19/21 07/19/21 07/19/21 05:22 05:22 05:22 WBC RBC Hgb Hct MCV MCH MCHC RDW Plt Count MPV Absolute Nucleated RBC Nucleated RBC % (auto) D-Dimer VBG pH VBG pCO2 VBG pO2 VBG HCO3 VBG O2 Saturation VBG Base Excess Sodium 140 Potassium 3.7 Chloride 107 Carbon Dioxide 25 Anion Gap 12 BUN 12 Creatinine 0.57 Estim Creat Clear Calc 115.7 Estimated GFR > 60 POC Glucose Random Glucose 192 H Calcium 8.3 L Magnesium 1.9 Ferritin 163 Total Bilirubin 0.2 AST 20 D ALT 29 Alkaline Phosphatase 98 D C-Reactive Protein 5.34 H B-Natriuretic Peptide 134 H Total Protein 5.7 L Albumin 2.7 L Procalcitonin 0.04 Vancomycin Trough 07/19/21 07/19/21 05:25 11:43 WBC RBC Hgb Hct MCV MCH MCHC RDW Plt Count MPV Absolute Nucleated RBC Nucleated RBC % (auto) D-Dimer VBG pH 7.36 VBG pCO2 42 VBG pO2 52 VBG HCO3 24 VBG O2 Saturation 80.0 VBG Base Excess -1.0 Sodium Potassium Chloride Carbon Dioxide Anion Gap BUN Creatinine Estim Creat Clear Calc Estimated GFR POC Glucose 163 H Random Glucose Calcium Magnesium Ferritin Total Bilirubin AST ALT Alkaline Phosphatase C-Reactive Protein B-Natriuretic Peptide Total Protein Albumin Procalcitonin Vancomycin Trough Microbiology Microbiology Results: Microbiology 07/17/21 09:48 Sputum - Suctioned Gram Stain - Final 07/17/21 09:48 Sputum - Suctioned Sputum Culture - Final Staphylococcus aureus 07/01/21 00:37 Blood - Venous Blood Culture - Final No growth after 5 days. 07/01/21 00:37 Blood - Venous Blood Culture - Final No growth after 5 days. 07/02/21 15:55 Urine clean catch - Urine ortiz top Urine Culture - Final Quality Stroke Does the patient have a stroke diagnosis?: No VTE Prior VTE?: No VTE Risk Level:: Medical - moderate - high VTE Device Contraindication: Treatment Not Indicated VTE Drug Contraindication: N/A - Med Ordered Critical Care Time Critical Care Time (minutes): 60
[2021-07-19] MEDS: fentaNYL citrate/PF 100 MCG/2 ML VIAL 200 MCG IVPUSH (17:19)
[2021-07-19 17:37] LABS: Glucose, Whole Blood 173 mg/dL (60-115)
[2021-07-19] MEDS: QUEtiapine Fumarate 50 MG TABLET OG-TUBE (17:43)
[2021-07-19] MEDS: Metoprolol Tartrate 5 MG/5 ML VIAL IVPUSH (19:53)
[2021-07-19] MEDS: QUEtiapine Fumarate 25 MG TABLET 75 MG OG-TUBE (20:10)
[2021-07-19] MEDS: Phenylephrine HCL 20 MG in 0.9 % Sodium Chloride 250 ML 23.97 MG IVCONT (20:11)
[2021-07-19] MEDS: fentaNYL citrate/NS 1,000 MCG/100 ML PLAST..BAG 20 MCG IVCONT (20:11)
[2021-07-19] MEDS: Doxycycline Hyclate 100 MG in 0.9 % Sodium Chloride 250 ML 166.67 MG IV (21:21)
[2021-07-19 23:58] LABS: Glucose, Whole Blood 222 mg/dL (60-115)
[2021-07-20] VITALS (33 sets, daily range): BP systolic 100–134; BP diastolic 57–85; PULSE 69–137; RESP 12–36; TEMP 36.9–37.7; O2SAT 84–100; BMI 26.2
[2021-07-20] MEDS: fentaNYL citrate/NS 1,000 MCG/100 ML PLAST..BAG 20 MCG IVCONT ×6 (00:58→23:45)
[2021-07-20] MEDS: propofoL 1,000 MG/100 ML VIAL 19.02 MG IVCONT ×5 (00:58→20:37)
[2021-07-20] MEDS: Phenylephrine HCL 20 MG in 0.9 % Sodium Chloride 250 ML 23.97 MG IVCONT ×3 (02:36→22:47)
--- NOTE | 2021-07-20 04:49 | PC.NURSE ---
Tmax 99.9 core. At approx 1945, pt converted to SVT, HR 150s, given 5 mg IVP lopressor x1 with good effect. HR trending 70-100s. Sedated on propofol/fentanyl. Pt alert, intermittently anxious, reaching toward ETT, banging on siderails, RR 30-40s. Neosynephrine titrated to maintain MAP > 65. ETT #7.5, 23 cm at lip. Suctioned for small amount of thick/cream secretions. +C/G. Vent settings- PC rate 16, 16/10, FiO2 titrated to 90% to maintain SpO2 > 88%, EtCO2 20-30s. New order for IV doxy, given per order. Promote tf running at max rate of 60 ml/hr, GRV [address], UOP approx 50 ml/hr. Small BM this shift. Stage 2 to B/L buttocks, barrier cream applied. Repositioned as tolerated, desaturates easily to 70s, slow recovery. On prevalon mattress.
[2021-07-20 05:33] LABS: VBG Base Excess 2.9 mmol/L; VBG HCO3 28 mmol/L (22-26); VBG pCO2 47 mmHg; VBG pH 7.38 (7.32-7.43); VBG pO2 42 mmHg
[2021-07-20] MEDS: Ascorbic Acid 500 MG TABLET 1000 MG PO ×3 (05:36→17:02)
[2021-07-20] MEDS: Insulin Lispro 100 UNIT/ML 3 ML VIAL SUBCUT ×3 (05:36→18:25)
[2021-07-20] MEDS: Chlorhexidine Gluc Oral Rinse 15 ML MOUTHWASH BUCCAL ×3 (05:36→21:03)
[2021-07-20 05:39] LABS: Glucose, Whole Blood 215 mg/dL (60-115)
[2021-07-20 05:41] LABS: Basophils Percent Auto 0.1 % (0-2); Eosinophils Absolute Auto 0.1 X10*3/uL (0.0-0.4); Eosinophils Percent Auto 0.5 % (0-4); Hematocrit 28.2 % (37-47); Hemoglobin 8.5 g/dl (12.0-16.0); Imm Gran Abs Auto 0.06 X10*3/uL (0.00-0.03); Imm Gran Pct Auto 0.6 % (0.0-0.4); Lymphocytes Absolute Auto 0.5 X10*3/uL (1.2-4.9); Lymphocytes Percent Auto 4.5 % (20-40); MANUAL DIFF FLAG SCAN; Mean Corpuscular HGB Conc 30.1 g/dl (31.0-35.0); Mean Corpuscular Hemoglobin 24.9 pg (27.0-33.0); Mean Corpuscular Volume 82.7 fL (80-98); Mean Platelet Volume 9.5 fL (9.4-12.3); Monocytes Absolute Auto 0.2 X10*3/uL (0.1-1.2); Monocytes Percent Auto 1.4 % (2-11); Neutrophils Absolute Auto 9.9 X10*3/uL (2.0-8.3); Neutrophils Percent Auto 92.9 % (45-73); Platelet Count 249 X10*3/uL (160-400); Red Blood Count 3.41 X10*6/uL (4.20-5.50); Red Cell Distribution Width 19.4 % (11.0-16.0); SCAN SMEAR FLAG 1; White Blood Count 10.6 X10*3/uL (4.8-10.8)
[2021-07-20 05:57] LABS: Alanine Aminotransferase 21 U/L (0-31); Albumin Level 2.7 g/dL (3.5-5.0); Alkaline Phosphatase 90 U/L (39-117); Anion Gap 6 (12-20); Aspartate Amino Transferase 15 U/L (5-31); Bilirubin Total < 0.2 mg/dL (0.0-1.0); Blood Urea Nitrogen 13 mg/dL (9-16); Calcium 7.9 mg/dL (8.4-10.2); Carbon Dioxide 30 mmol/L (22-29); Chloride 112 mmol/L (96-108); Creatinine Clr Calc Pharmacy 127.4; Estimated Glomerular Filt Rate > 60; Glucose Random 251 mg/dL (60-115); Potassium 3.8 mmol/L (3.3-5.1); Sodium 144 mmol/L (135-145); Total Protein 5.6 g/dL (6.5-8.0)
[2021-07-20 06:05] LABS: SLIDE REVIEW VERIFIED
[2021-07-20 06:21] LABS: Venous Blood Gas Refer to POC result
[2021-07-20] MEDS: Aspirin Enteric Coated 325 MG TABLET.DR PO (08:16)
[2021-07-20] MEDS: Doxycycline Hyclate 100 MG in 0.9 % Sodium Chloride 250 ML 166.67 MG IV ×2 (08:16→21:02)
[2021-07-20] MEDS: methylPREDNISolone Sod Succ 125 MG/2 ML VIAL 80 MG IVPUSH ×2 (08:16→21:04)
[2021-07-20] MEDS: Zinc Sulfate 220 MG CAPSULE PO (08:16)
[2021-07-20] MEDS: 0.9 % Sodium Chloride Flush 3 ML SYRINGE IVFLUSH ×2 (08:16→14:23)
[2021-07-20] MEDS: QUEtiapine Fumarate 25 MG TABLET 75 MG OG-TUBE ×2 (08:16→21:03)
[2021-07-20] MEDS: Cholecalciferol (Vitamin D3) 25 MCG TABLET 50 MCG PO (08:17)
[2021-07-20] MEDS: Thiamine HCL 100 MG TABLET 200 MG PO ×2 (08:17→21:03)
[2021-07-20] MEDS: Enoxaparin Sodium 40 MG/0.4 ML SYRINGE SUBCUT (08:17)
[2021-07-20] MEDS: Famotidine 20 MG TABLET 40 MG PO ×2 (08:17→21:03)
[2021-07-20] MEDS: fentaNYL citrate/PF 100 MCG/2 ML VIAL IVPUSH (09:12)
[2021-07-20] MEDS: Midazolam HCl/PF 2 MG/2 ML VIAL IVPUSH ×2 (09:37→14:23)
[2021-07-20] MEDS: Metoclopramide HCl 5 MG TABLET G-TUBE ×2 (10:49→21:03)
[2021-07-20] MEDS: Midazolam HCl/NS 50 MG/50 ML PLAST..BAG IVCONT ×2 (10:49→14:12)
[2021-07-20 11:55] LABS: Glucose, Whole Blood 228 mg/dL (60-115)
--- NOTE | 2021-07-20 12:21 | MHC.CLN ---
F/U NSG REPORTED RESIDUAL 120ML AND RECHECKED AT NOON NOW 70ML PT RECEIVING TF PROMOTE AT MAX GOAL RATE 60ML/HR PROVIDES 1440KCALS (1900KCALS WITH SEDATION; 30KCALS/KG), 90G PROTEIN (1.4G/KG), 1208CC WATER FROM FORMULA DISCUSSED AT ROUNDS WITH WILL RESTART FREE WATER FLUSHES 240ML Q SHIFT TO PROVIDE 1928ML TOTAL WATER FROM FORMULA AND FLUSHES (30.6ML/KG) MONITOR TOLERANCE, RESIDUALS AND LYTES
--- NOTE | 2021-07-20 12:30 | PM.CCPN ---
Subjective Subjective Date of Service: 07/20/21 Interval History: Mrs. Astudillo was transferred to the ICU Jul 02 with hypoxemic respiratory failure 2? COVID pneumonia. The patient is a 41-year-old woman with limited past medical history of only nephrolithiasis.? She also has a history of breast biopsy and laparoscopic cholecystectomy.? She takes no medications on the outside.? She is Yakut-speaking only. She presented to the ED on 06/30 with a 9 day history of nausea, vomiting, shortness of breath, cough, fever, and pleuritic chest pain.? Reportedly, she tested positive for COVID (elsewhere) on June 26.? (I?m assuming symptom onset date approx. June 21.)? According to the patient?s , everyone in the family had COVID; they were all unvaccinated. In the ED, Sat was 93% on room air.? CXR showed typical bilat COVID infitrates.? CTPA notable for moderate severity typical bilat COVID infiltrates.? No PE or right heart strain.? Incidental finding on the CT scan were deep bilateral breast masses with central calcification.? Labs in the ED showed low-normal white count with mild leukopenia.? Chemistries were unremarkable except for mild hyperglycemia; no biomarkers were sent. She was admitted to Medicine and treated with dexamethasone.? She was not given remdesivir.? Her oxygen requirement escalated rapidly and within 36 hrs she was on HFNC 100%.? That morning (07/02), she was transferred to the ICU.? Bec of her rapid FiO2 escalation and her CT scan, her risk of was judged to be not insubstantial.? She was therefore started on the full EVMS protocol, including ivermectin and Solumedrol 80mg bid, plus vit D, vit C, ASA, thiamine, and zinc. She had a progressive course of increasing oxygen requirement, escalating through HFNC w NRBFM, then NIV.? Anxiety was a major feature of her clinical course.? Mult agents (in addition to fentanyl) were tried, including Ativan, ketamine, and Precedex, with not very great success.? On Jul 08, new pneumomediastinum was detected on CT scan.? The scan also showed much worse COVID infiltrates.? The pneumomediastinum did not worsen, and was not seen on subsequent films.? The patient was ultimately intubated on Jul 15.? Her CXR has progressively worsened. On July 17, she had a low grade fever, her WBC bumped, and her CXR looked worse, with more bilat lower lobe opacity, although oxygenation was not worse.? Tube feeds were suctioned from her oropharynx, and it was thought that she might have aspirated.? She was started on vancomycin and Zosyn. The next day, Jul 18, we were able to easily get her FiO2 down to 70%, and even 60% for a brief period.? We stopped the Versed infusion she was on, and started her on Seroquel.? Yesterday, she was much more awake and consequently became more agitated, had ventilator dysynchrony and higher FiO2 requirement, even though we increased the Seroquel to 75 mg bid.? We changed her abx to doxycycline. This morning, Sat?s were as low as in the 70?s on 100% FiO2, with clearly inadequate sedation, with the patient on propofol 50ug, fent 200ug, plus the Seroquel 75mg bid.? We started her on Versed. Sedation improved and Sat lucas to 90%.? Tidal vols also lucas to the 600?s.? Currently she?s, on propofol 30 mcg, fentanyl 200 ug, Versed 2mg/hr, plus the Seroquel 75mg bid.? She?s also on phenylephrine 0.5ug.? HR 82, SR.? BP 129/79.? On AC/PC 16, 16/10, 100%, RR is 16, Vt 620cc, Ve 10.4L, PIP 29cm, ETCO2 27, Sat 90%. ?This morning?s CVBG showed 7.38/47/+2.? She is afebrile.? PER about 2-3mm.? No jugular venous distention with the head of the bed at 30 degrees.? Chest CTA, w normal expiratory phase.? RRR, normal S1 and S2, no murmur or gallops.? Abdomen is benign.? She has trace edema., LABORATORY DATA:? As below.? Notably, white count is down further to 10, sodium is up to 144, BUN/creatinine steady at 13/0.5, POCs are in the low 200s. MICROBIOLOGY:? Sputum from July 17 showed 4+ polys, 3+ Gram-positive cocci, grew 4+ MSSA. IMAGING:? CXR today actually looks better than the prev film of Jul 17.? I don?t see any subcutaneous emphysema, pneumomediastinum, or pneumothorax. ECHO Jul [address] Ponce was looked normal. IMPRESSION:? Generally previously healthy woman. 1. Mild obesity. 2. COVID-19 pneumonia.? Symptom onset date estimated to be June 21.? SARs CoV 2 IgG negative on 07/01.? She?s on Solumedrol 80mg bid and ASA.? She had two days of ivermectin two weeks ago.? On 07/18, I changed her ASA to 325 mg daily and added Vit D, Vit C, Pepcid, thiamine, and zinc. 3. Acute hypoxemic respiratory failure.? Secondary to above.? Oxygenation is recovering slowly after yesterday?s problems.? Made mult vent changes.? BNP was sl. elevated yesterday, I?ll try to gently diurese her.? It?s a certainty that she?ll need tracheostomy, but we have to wait until FiO2 is solidly down to the 50-60% range. 4. ID:? Very positive Gram stain and culture.? WBC and temp are down after the abx.? Can?t say for certain that she has a staph ?pneumonia?, but her numbers responded well to anti-staphylococcal abx.? Vancomycin was discontinued yesterday after the sensitivities came back and she was started on doxycycline.? We?ll give her another 3 days. 5. Hyperglycemia.? Hb A1c was 6.0%, which is the upp limit of normal.? So she probably has borderline DM.? Now aggravated by the steroids.? Currently on SS insulin, POCs running low 200?s.? I?ll start her on Lantus 20u qPM. 6. Tube feed intolerance.? Gave her four doses of Reglan, fixed the problem.? Low residuals today. 7. Nutrition.? On Promote @ 60cc/hr. 8. Hypernatremia.? Sodium level is climbing.? Restart water flushes. 9. Incidental breast masses on CT.? Based on her hx, I?m guessing that these are known, but they require f/u by her PMD after dischg. Critical care time:? 70+ min. Critical Care Time (minutes): 70 Physical Exam Vital Signs: Vital Signs: Last Vital Signs Temp 99.7 F 07/20/21 12:00 Pulse 88 07/20/21 12:00 Resp 17 07/20/21 12:00 BP 129/79 07/20/21 12:00 Pulse Ox 87 L 07/20/21 12:00 Body Mass Index 26.2 Objective Data Labs CBC & Chem 7: 07/20/21 05:25 07/20/21 05:25 Labs: Laboratory Results - last 24 hr 07/19/21 07/19/21 07/20/21 17:33 23:44 05:25 WBC 10.6 RBC 3.41 L Hgb 8.5 L Hct 28.2 L MCV 82.7 MCH 24.9 L MCHC 30.1 L RDW 19.4 H Plt Count 249 MPV 9.5 Immature Gran % (Auto) 0.6 H Neut % (Auto) 92.9 H Lymph % (Auto) 4.5 L [place] % (Auto) 1.4 L Eos % (Auto) 0.5 Baso % (Auto) 0.1 Lymph # (Auto) 0.5 L [place] # (Auto) 0.2 Eos # (Auto) 0.1 Baso # (Auto) 0.0 Abs Immat Gran (auto) 0.06 H Absolute Neuts (auto) 9.9 H Absolute Nucleated RBC 0.000 Nucleated RBC % (auto) 0.0 Smear Tech's Comments VERIFIED VBG pH VBG pCO2 VBG pO2 VBG HCO3 VBG O2 Saturation VBG Base Excess Sodium Potassium Chloride Carbon Dioxide Anion Gap BUN Creatinine Estim Creat Clear Calc Estimated GFR POC Glucose 173 H 222 H Random Glucose Calcium Total Bilirubin AST ALT Alkaline Phosphatase Total Protein Albumin 07/20/21 07/20/21 07/20/21 05:25 05:27 05:33 WBC RBC Hgb Hct MCV MCH MCHC RDW Plt Count MPV Immature Gran % (Auto) Neut % (Auto) Lymph % (Auto) [place] % (Auto) Eos % (Auto) Baso % (Auto) Lymph # (Auto) [place] # (Auto) Eos # (Auto) Baso # (Auto) Abs Immat Gran (auto) Absolute Neuts (auto) Absolute Nucleated RBC Nucleated RBC % (auto) Smear Tech's Comments VBG pH 7.38 VBG pCO2 47 VBG pO2 42 VBG HCO3 28 H VBG O2 Saturation 67.0 VBG Base Excess 2.9 Sodium 144 Potassium 3.8 Chloride 112 H Carbon Dioxide 30 H Anion Gap 6 L BUN 13 Creatinine 0.57 Estim Creat Clear Calc 127.4 Estimated GFR > 60 POC Glucose 215 H Random Glucose 251 H Calcium 7.9 L Total Bilirubin < 0.2 AST 15 ALT 21 Alkaline Phosphatase 90 Total Protein 5.6 L Albumin 2.7 L 07/20/21 11:50 WBC RBC Hgb Hct MCV MCH MCHC RDW Plt Count MPV Immature Gran % (Auto) Neut % (Auto) Lymph % (Auto) [place] % (Auto) Eos % (Auto) Baso % (Auto) Lymph # (Auto) [place] # (Auto) Eos # (Auto) Baso # (Auto) Abs Immat Gran (auto) Absolute Neuts (auto) Absolute Nucleated RBC Nucleated RBC % (auto) Smear Tech's Comments VBG pH VBG pCO2 VBG pO2 VBG HCO3 VBG O2 Saturation VBG Base Excess Sodium Potassium Chloride Carbon Dioxide Anion Gap BUN Creatinine Estim Creat Clear Calc Estimated GFR POC Glucose 228 H Random Glucose Calcium Total Bilirubin AST ALT Alkaline Phosphatase Total Protein Albumin Microbiology Microbiology Results: Microbiology 07/17/21 09:48 Sputum - Suctioned Gram Stain - Final 07/17/21 09:48 Sputum - Suctioned Sputum Culture - Final Staphylococcus aureus 07/01/21 00:37 Blood - Venous Blood Culture - Final No growth after 5 days. 07/01/21 00:37 Blood - Venous Blood Culture - Final No growth after 5 days. 07/02/21 15:55 Urine clean catch - Urine ortiz top Urine Culture - Final Quality Stroke Does the patient have a stroke diagnosis?: No VTE Prior VTE?: No VTE Risk Level:: Medical - moderate - high VTE Device Contraindication: Treatment Not Indicated VTE Drug Contraindication: N/A - Med Ordered Critical Care Time Critical Care Time (minutes): 60
[2021-07-20] MEDS: Furosemide 20 MG/2 ML VIAL IVPUSH (13:09)
[2021-07-20 18:27] LABS: Glucose, Whole Blood 221 mg/dL (60-115)
--- NOTE | 2021-07-20 18:42 | PC.NURSE ---
PATIENT REMAINS SEDATED WITH PROPOFOL, FENTANYL, AND VERSED ADDED. SEE EMAR. TELESITTER PLACED BEDSIDE FOR AIRWAY SAFETY. PATIENT HAS BREAKTHROUGH MOMENTS, HR INCREASED AND 02 DESATS. PRN MEDICATIONS WITH POSITIVE EFFECT. FOLLOWS SIMPLE COMMANDS. POSITIVE C&G. PUPILS REACTIVE. AFEBRILE. VSS WITH SUPPORT FROM [facility] GTT. VENT SETTINGS CHANGED TO AC/VC+ 16/400/14/100%, ABLE TO TITRATE FI02 DOWN TO 70% TO MAINTAIN 02 > 90%. TUBE FEEDS REMAIN PROMOTE 60, FWF 240 ML ADDED. RESIDUALS RANGE FROM 70-160. MD AWARE. BM X 2 - BOTH SMALL, PASTY, BROWN. BROOKS OUTPUT WNL. LASIX 20 MG X 1 ORDERED AND ADMINISITERED: 2100 ML OUTPUT POST LASIX. Q2HR REPO, BATHED, BARRIER CREAM AND TRIAD, PREVALON, WEDGES, AND HEELBOS UTILIZED. UPDATED AND SET UP FOR FACETIME.
[2021-07-20 21:01] LABS: Glucose, Whole Blood 185 mg/dL (60-115)
[2021-07-20] MEDS: Insulin Glargine,Hum.rec.anlog 100 UNIT/ML 10 ML VIAL 20 UNIT SUBCUT (21:04)
[2021-07-21] VITALS (33 sets, daily range): BP systolic 109–164; BP diastolic 65–93; PULSE 56–127; RESP 11–28; TEMP 36.1–37.5; O2SAT 86–98; BMI 26.1
[2021-07-21] MEDS: Ascorbic Acid 500 MG TABLET 1000 MG PO ×5 (00:28→23:24)
[2021-07-21] MEDS: propofoL 1,000 MG/100 ML VIAL 19.02 MG IVCONT ×6 (01:07→21:57)
--- NOTE | 2021-07-21 01:47 | PC.NURSE ---
rectal tube placed at approximately 0100
[2021-07-21 02:52] LABS: Glucose, Whole Blood 140 mg/dL (60-115)
[2021-07-21] MEDS: fentaNYL citrate/NS 1,000 MCG/100 ML PLAST..BAG 20 MCG IVCONT ×3 (03:52→13:01)
[2021-07-21 05:38] LABS: VBG Base Excess 7.8 mmol/L; VBG HCO3 33 mmol/L (22-26); VBG pCO2 48 mmHg; VBG pH 7.43 (7.32-7.43); VBG pO2 50 mmHg
[2021-07-21 05:52] LABS: Hematocrit 29.7 % (37-47); Hemoglobin 8.8 g/dl (12.0-16.0); Mean Corpuscular HGB Conc 29.6 g/dl (31.0-35.0); Mean Corpuscular Hemoglobin 24.8 pg (27.0-33.0); Mean Corpuscular Volume 83.7 fL (80-98); Mean Platelet Volume 9.7 fL (9.4-12.3); Platelet Count 230 X10*3/uL (160-400); Red Blood Count 3.55 X10*6/uL (4.20-5.50); Red Cell Distribution Width 19.3 % (11.0-16.0); White Blood Count 9.7 X10*3/uL (4.8-10.8)
[2021-07-21 05:55] LABS: Venous Blood Gas Refer to POC result
[2021-07-21] MEDS: Chlorhexidine Gluc Oral Rinse 15 ML MOUTHWASH BUCCAL ×3 (06:18→20:35)
[2021-07-21] MEDS: Insulin Lispro 100 UNIT/ML 3 ML VIAL SUBCUT ×3 (06:18→18:14)
--- NOTE | 2021-07-21 06:22 | PC.NURSE ---
CARE ASSUMED 23:15...REMAINS TUBED/VENTED...VCV: AC16/TV400/FIO2 70%/PEEP 14...[id number]%...SEDATED WITH PROPOFOL/FENTANYL/VERSED PER DEC...NEOSYNEPHRINE PER DEC...TUBE FEEDS TOLERATED 60 CC/HR...INCONTINANT MULTIPLE LARGE LIQUIED BROWN STOOLS...RECTAL TUBE PLACED...NSR..NO ECTOPY
[2021-07-21 06:23] LABS: Anion Gap 8 (12-20); Blood Urea Nitrogen 15 mg/dL (9-16); Calcium 8.7 mg/dL (8.4-10.2); Carbon Dioxide 33 mmol/L (22-29); Chloride 110 mmol/L (96-108); Creatinine Clr Calc Pharmacy 134.1; Estimated Glomerular Filt Rate > 60; Glucose Random 276 mg/dL (60-115); Magnesium 1.7 mg/dL (1.6-2.6); Phosphorus 2.8 mg/dL (2.7-4.5); Potassium 4.1 mmol/L (3.3-5.1); Sodium 147 mmol/L (135-145)
[2021-07-21 07:22] LABS: Glucose, Whole Blood 286 mg/dL (60-115)
[2021-07-21] MEDS: 0.9 % Sodium Chloride Flush 3 ML SYRINGE IVFLUSH ×3 (08:17→20:34)
[2021-07-21] MEDS: Doxycycline Hyclate 100 MG in 0.9 % Sodium Chloride 250 ML 166.67 MG IV ×2 (08:17→20:33)
[2021-07-21] MEDS: Phenylephrine HCL 20 MG in 0.9 % Sodium Chloride 250 ML 23.97 MG IVCONT (08:18)
[2021-07-21] MEDS: Enoxaparin Sodium 40 MG/0.4 ML SYRINGE SUBCUT (08:18)
[2021-07-21] MEDS: QUEtiapine Fumarate 25 MG TABLET 75 MG OG-TUBE (08:19)
[2021-07-21] MEDS: methylPREDNISolone Sod Succ 125 MG/2 ML VIAL 80 MG IVPUSH ×2 (08:19→20:34)
[2021-07-21] MEDS: Midazolam HCl/NS 50 MG/50 ML PLAST..BAG IVCONT (08:19)
[2021-07-21] MEDS: Cholecalciferol (Vitamin D3) 25 MCG TABLET 50 MCG PO (08:19)
[2021-07-21] MEDS: Famotidine 20 MG TABLET 40 MG PO ×2 (08:19→20:33)
[2021-07-21] MEDS: Thiamine HCL 100 MG TABLET 200 MG PO ×2 (08:20→20:33)
[2021-07-21] MEDS: Metoclopramide HCl 5 MG TABLET G-TUBE (08:20)
[2021-07-21] MEDS: Zinc Sulfate 220 MG CAPSULE PO (08:20)
--- NOTE | 2021-07-21 10:31 | MHC.CLN ---
F/U NSG REPORTED LOW RESIDUALS AND TOLERATING TF AT GOAL PT RECEIVING TF PROMOTE AT MAX GOAL RATE 60ML/HR PROVIDES 1440KCALS (1900KCALS WITH SEDATION; 30KCALS/KG), 90G PROTEIN (1.4G/KG), 1208CC WATER FROM FORMULA DISCUSSED AT ROUNDS WITH MD WILL INCREASE FREE WATER FLUSHES 300ML Q 6HRS TO PROVIDE 3008ML TOTAL WATER FROM FORMULA AND FLUSHES (42ML/KG BASED ON ABW) MONITOR TOLERANCE, RESIDUALS AND LYTES
[2021-07-21 11:53] LABS: Glucose, Whole Blood 232 mg/dL (60-115)
[2021-07-21] MEDS: Aspirin 325 MG TABLET PO (11:54)
[2021-07-21] MEDS: clonazePAM 0.5 MG TABLET PO ×3 (11:54→20:33)
--- NOTE | 2021-07-21 17:05 | P.PNCC_ITS ---
Subjective Subjective Date of Service: 07/21/21 Interval History: Mrs. Astudillo was transferred to the ICU Jul 02 with hypoxemic respiratory failure 2? COVID pneumonia. The patient is a 41-year-old woman with limited past medical history of only nephrolithiasis.? She also has a history of breast biopsy and laparoscopic cholecystectomy.? She takes no medications on the outside.? She is Arabic- speaking only. She presented to the ED on 06/30 with a 9 day history of nausea, vomiting, shortness of breath, cough, fever, and pleuritic chest pain.? Reportedly, she tested positive for COVID (elsewhere) on June 26.? (I?m assuming symptom onset date approx. June 21.)? According to the patient?s , everyone in the family had COVID; they were all unvaccinated. In the ED, Sat was 93% on room air.? CXR showed typical bilat COVID infitrates.? CTPA notable for moderate severity typical bilat COVID infiltrates.? No PE or right heart strain.? Incidental finding on the CT scan were deep bilateral breast masses with central calcification.? Labs in the ED showed low-normal white count with mild leukopenia.? Chemistries were unremarkable except for mild hyperglycemia; no biomarkers were sent. She was admitted to Medicine and treated with dexamethasone.? She was not given remdesivir.? Her oxygen requirement escalated rapidly and within 36 hrs she was on HFNC 100%.? That morning (07/02), she was transferred to the ICU.? Bec of her rapid FiO2 escalation and her CT scan, her risk of was judged to be not insubstantial.? She was therefore started on the full EVMS protocol, including ivermectin and Solumedrol 80mg bid, plus vit D, vit C, ASA, thiamine, and zinc. She had a progressive course of increasing oxygen requirement, escalating through HFNC w NRBFM, then NIV.? Anxiety was a major feature of her clinical course.? Mult agents (in addition to fentanyl) were tried, including Ativan, ketamine, and Precedex, with not very great success.? On Jul 08, new pneumomediastinum was detected on CT scan.? The scan also showed much worse C OVID infiltrates.? The pneumomediastinum did not worsen, and was not seen on subsequent films.? The patient was ultimately intubated on Jul 15.? Her CXR has progressively worsened. On July 17, she had a low grade fever, her WBC bumped, and her CXR looked worse, with more bilat lower lobe opacity, although oxygenation was not worse.? Tube feeds were suctioned from her oropharynx, and it was thought that she might have aspirated.? She was started on vancomycin and Zosyn. The next day, Jul 18, we were able to easily get her FiO2 down to 70%, and even 60% for a brief period.? We stopped the Versed infusion she was on, and started her on Seroquel.? Jul 19, she was much more awake and consequently became more agitated, had ventilator dysynchrony and higher FiO2 requirement, even though we increased the Seroquel to 75 mg bid.? We changed her abx to doxycycline.? Yesterday, her oxygenation was much worse bec we couldn?t sedate her adequatel y.? She was requiring 100% FiO2, and desaturating frequently into the 80s and even the 70s.? We restarted the Versed infusion and she improved dramatically.? I also gave her one dose of Lasix 20 mg yesterday, and started her on Lantus insulin. This morning, we changed her Seroquel to Klonopin 0.5mg q8hr.? This afternoon, she?s well sedated on propofol 50ug, fent 200ug, Versed 2mg/hr, plus the Klonopiin.? She?s also on phenylephrine 0.3ug.? HR 76, SR.? BP 125/74.? On PRVC 18/400/60%/+14, RR is 18, Vt 520cc, Ve 7L, PIP 18cm, ETCO2 50, Sat 94%.? This morning?s CVBG showed 7.43/48/+7.? She is afebrile.? No jugular venous distention with the head of the bed at 30 degrees.? Normal expiratory phase.? Trace edema. Fluid balance: Net 1L positive. LABORATORY DATA:? As below.? Notably, white count is down further to 9, sodium is up to 147, BUN/creatinine steady, POCs are in the mid-high 200s. MICROBIOLOGY:? Sputum from July 17 showed 4+ polys, 3+ Gram-positive cocci, grew 4+ MSSA. IMAGING:? CXR yesterday actually looks better than the prev film of Jul 17.? No subcutaneous emphysema, pneumomediastinum, or pneumothorax. ECHO Jul [address] Ponce looked normal, accord to his report. IMPRESSION:? Generally previously healthy woman. 1. Mild obesity. 2. COVID-19 pneumonia.? Symptom onset date estimated to be June 21.? SARs CoV 2 IgG negative on 07/01.? She?s on Solumedrol 80mg bid and ASA.? She had two days of ivermectin three weeks ago.? On 07/18, I changed her ASA to 325 mg daily and added Vit D, Vit C, Pepcid, thiamine, and zinc. 3. Acute hypoxemic respiratory failure.? Secondary to above.? Oxygenation is recovering nicely after yesterday?s problems and after diuresis. ?It?s almost a certainty that she?ll need tracheostomy, but we have to wait until FiO2 is solidly down to the 50-60% range. 4. ID:? Very positive Gram stain and culture.? WBC and temp are down after the abx.? Can?t say for certain that she has a staph ?pneumonia?, but her numbers responded well to anti-staphylococcal abx.? Vancomycin was discontinued after the sensitivities came back and she was started on doxycycline.? We?ll give her another 2 days. 5. Hyperglycemia.? Hb A1c was 6.0%, which is the upp limit of normal.? So she probably has borderline DM.? Now aggravated by the steroids.? Currently on SS insulin, POCs running low 200?s.? I?ll bump her Lantus to 30u qPM. 6. Tube feed intolerance.? Gave her four doses of Reglan, fixed the problem.? Low residuals today. 7. Nutrition.? On Promote @ 60cc/hr. 8. Hypernatremia.? Sodium level is climbing bec of diuresis.? Increase water flushes. 9. Incidental breast masses on CT.? Based on her hx, I?m guessing that these are known, but they require f/u by her PMD after dischg. Critical care time:? 50 min. Critical Care Time (minutes): 50 Physical Exam Vital Signs: Vital Signs: Last Vital Signs Temp 98.1 F 07/21/21 16:00 Pulse 76 07/21/21 16:00 Resp 18 07/21/21 16:00 BP 109/73 07/21/21 16:00 Pulse Ox 96 07/21/21 16:00 Body Mass Index 26.1 Objective Data Labs CBC & Chem 7: 07/21/21 05:30 07/21/21 05:30 Labs: Laboratory Results - last 24 hr 07/20/21 07/20/21 07/21/21 18:19 20:57 00:17 WBC RBC Hgb Hct MCV MCH MCHC RDW Plt Count MPV Absolute Nucleated RBC Nucleated RBC % (auto) VBG pH VBG pCO2 VBG pO2 VBG HCO3 VBG O2 Saturation VBG Base Excess Sodium Potassium Chloride Carbon Dioxide Anion Gap BUN Creatinine Estim Creat Clear Calc Estimated GFR POC Glucose 221 H 185 H 140 H Random Glucose Calcium Phosphorus Magnesium 07/21/21 07/21/21 07/21/21 05:30 05:30 05:33 WBC 9.7 RBC 3.55 L Hgb 8.8 L Hct 29.7 L MCV 83.7 MCH 24.8 L MCHC 29.6 L RDW 19.3 H Plt Count 230 MPV 9.7 Absolute Nucleated RBC 0.000 Nucleated RBC % (auto) 0.0 VBG pH 7.43 VBG pCO2 48 VBG pO2 50 VBG HCO3 33 H VBG O2 Saturation 81.0 VBG Base Excess 7.8 Sodium 147 H Potassium 4.1 Chloride 110 H Carbon Dioxide 33 H Anion Gap 8 L BUN 15 Creatinine 0.54 Estim Creat Clear Calc 134.1 Estimated GFR > 60 POC Glucose Random Glucose 276 H Calcium 8.7 D Phosphorus 2.8 Magnesium 1.7 07/21/21 07/21/21 06:13 11:49 WBC RBC Hgb Hct MCV MCH MCHC RDW Plt Count MPV Absolute Nucleated RBC Nucleated RBC % (auto) VBG pH VBG pCO2 VBG pO2 VBG HCO3 VBG O2 Saturation VBG Base Excess Sodium Potassium Chloride Carbon Dioxide Anion Gap BUN Creatinine Estim Creat Clear Calc Estimated GFR POC Glucose 286 H 232 H Random Glucose Calcium Phosphorus Magnesium Microbiology Microbiology Results: Microbiology 07/17/21 09:48 Sputum - Suctioned Gram Stain - Final 07/17/21 09:48 Sputum - Suctioned Sputum Culture - Final Staphylococcus aureus 07/01/21 00:37 Blood - Venous Blood Culture - Final No growth after 5 days. 07/01/21 00:37 Blood - Venous Blood Culture - Final No growth after 5 days. 07/02/21 15:55 Urine clean catch - Urine ortiz top Urine Culture - Final Quality Stroke Does the patient have a stroke diagnosis?: No VTE Prior VTE?: No VTE Risk Level:: Medical - moderate - high VTE Device Contraindication: Treatment Not Indicated VTE Drug Contraindication: N/A - Med Ordered Critical Care Time Critical Care Time (minutes): 60
[2021-07-21 17:33] LABS: Glucose, Whole Blood 239 mg/dL (60-115)
[2021-07-21] MEDS: Magnesium Sulfate/H2O 2 GM/50 ML PIGGYBACK IV (18:13)
[2021-07-21] MEDS: fentaNYL citrate/NS 1,000 MCG/100 ML PLAST..BAG 15 MCG IVCONT ×2 (18:14→23:23)
[2021-07-21] MEDS: Insulin Glargine,Hum.rec.anlog 100 UNIT/ML 10 ML VIAL 30 UNIT SUBCUT (20:34)
[2021-07-21 20:56] LABS: Glucose, Whole Blood 181 mg/dL (60-115)
[2021-07-21] MEDS: Phenylephrine HCL 20 MG in 0.9 % Sodium Chloride 250 ML 4.79 MG IVCONT (23:22)
[2021-07-22] VITALS (31 sets, daily range): BP systolic 111–154; BP diastolic 63–91; PULSE 54–110; RESP 11–26; TEMP 35.6–37.7; O2SAT 91–100; BMI 26.5
[2021-07-22 00:17] LABS: Glucose, Whole Blood 147 mg/dL (60-115)
[2021-07-22] MEDS: propofoL 1,000 MG/100 ML VIAL 19.02 MG IVCONT ×5 (02:20→23:41)
[2021-07-22] MEDS: Ascorbic Acid 500 MG TABLET 1000 MG PO ×4 (04:49→23:44)
[2021-07-22] MEDS: Chlorhexidine Gluc Oral Rinse 15 ML MOUTHWASH BUCCAL ×2 (04:49→15:08)
[2021-07-22] MEDS: Midazolam HCl/NS 50 MG/50 ML PLAST..BAG IVCONT ×2 (04:52→23:42)
[2021-07-22] MEDS: fentaNYL citrate/NS 1,000 MCG/100 ML PLAST..BAG 15 MCG IVCONT ×4 (04:52→19:42)
[2021-07-22] MEDS: Insulin Lispro 100 UNIT/ML 3 ML VIAL SUBCUT ×3 (04:59→18:29)
[2021-07-22 05:20] LABS: VBG Base Excess 7.6 mmol/L; VBG HCO3 32 mmol/L (22-26); VBG pCO2 45 mmHg; VBG pH 7.45 (7.32-7.43); VBG pO2 41 mmHg
[2021-07-22 05:32] LABS: MANUAL DIFF FLAG NO
[2021-07-22 05:36] LABS: Eosinophils Percent Auto 0.2 % (0-4); Hematocrit 28.8 % (37-47); Hemoglobin 8.6 g/dl (12.0-16.0); Imm Gran Abs Auto 0.04 X10*3/uL (0.00-0.03); Imm Gran Pct Auto 0.7 % (0.0-0.4); Lymphocytes Absolute Auto 0.5 X10*3/uL (1.2-4.9); Lymphocytes Percent Auto 9.3 % (20-40); Mean Corpuscular HGB Conc 29.9 g/dl (31.0-35.0); Mean Corpuscular Hemoglobin 24.4 pg (27.0-33.0); Mean Corpuscular Volume 81.8 fL (80-98); Mean Platelet Volume 9.7 fL (9.4-12.3); Monocytes Absolute Auto 0.1 X10*3/uL (0.1-1.2); Monocytes Percent Auto 2.4 % (2-11); Neutrophils Absolute Auto 4.7 X10*3/uL (2.0-8.3); Neutrophils Percent Auto 87.4 % (45-73); Platelet Count 176 X10*3/uL (160-400); Red Blood Count 3.52 X10*6/uL (4.20-5.50); Red Cell Distribution Width 18.6 % (11.0-16.0); White Blood Count 5.4 X10*3/uL (4.8-10.8)
[2021-07-22 06:03] LABS: Albumin Level 2.9 g/dL (3.5-5.0); Anion Gap 9 (12-20); Blood Urea Nitrogen 16 mg/dL (9-16); Calcium 8.4 mg/dL (8.4-10.2); Carbon Dioxide 34 mmol/L (22-29); Chloride 101 mmol/L (96-108); Creatinine Clr Calc Pharmacy 132.9; Estimated Glomerular Filt Rate > 60; Glucose Random 287 mg/dL (60-115); Magnesium 1.9 mg/dL (1.6-2.6); Potassium 4.7 mmol/L (3.3-5.1); Sodium 139 mmol/L (135-145)
--- NOTE | 2021-07-22 06:09 | PC.NURSE ---
CARE ASSUMED 23:15...REMAINS TUBED/VENTED VCV/AC MODE..SEDATED WITH FENTANYL/PROPOFOL/VERSED DRIPS PER DEC...OVERALL SEDATED BUT OCCASIONALLY EMERGES SPONTANEOUSLY AND RANDOLPH...DOES NOT FOLLOW COMMANDS...SAO2 DECREASES WITH ACTIVITY...TUBE PREVIOUSLY HELD 3-11 SHIFT PER REPORT D/T ELEVATED RESIDUAL ASPIRATE...FEEDS RESUMED 12AM AT 60 CC/HR AND SCHEDULED H20 300ML BOLUSES...TOLERATED OVERNIGHT...5AM RESIDUAL= 40ml ...NEOSYNEPHRINE DRIP WEANED OFF...BP STABLE
[2021-07-22 06:30] LABS: Venous Blood Gas Refer to POC result
[2021-07-22 06:34] LABS: Glucose, Whole Blood 259 mg/dL (60-115)
[2021-07-22] MEDS: Doxycycline Hyclate 100 MG in 0.9 % Sodium Chloride 250 ML 166.67 MG IV ×2 (07:19→19:43)
[2021-07-22] MEDS: 0.9 % Sodium Chloride Flush 3 ML SYRINGE IVFLUSH ×2 (07:19→23:45)
[2021-07-22] MEDS: Cholecalciferol (Vitamin D3) 25 MCG TABLET 50 MCG PO (07:20)
[2021-07-22] MEDS: Enoxaparin Sodium 40 MG/0.4 ML SYRINGE SUBCUT (07:20)
[2021-07-22] MEDS: Famotidine 20 MG TABLET 40 MG PO ×2 (07:21→22:01)
[2021-07-22] MEDS: Thiamine HCL 100 MG TABLET 200 MG PO ×2 (07:21→22:00)
[2021-07-22] MEDS: clonazePAM 0.5 MG TABLET PO (07:22)
[2021-07-22] MEDS: methylPREDNISolone Sod Succ 125 MG/2 ML VIAL 80 MG IVPUSH ×2 (07:22→21:59)
[2021-07-22] MEDS: Aspirin 325 MG TABLET PO (07:24)
[2021-07-22] MEDS: Zinc Sulfate 220 MG CAPSULE PO (08:16)
[2021-07-22 11:45] LABS: Glucose, Whole Blood 261 mg/dL (60-115)
--- NOTE | 2021-07-22 13:16 | MHC.CLN ---
F/U NSG REPORTED HIGH RESIDUALS OVER NIGHT BUT CURRENTLY TOLERATING TF AT GOAL PT RECEIVING TF PROMOTE AT MAX GOAL RATE 60ML/HR PROVIDES 1440KCALS (1942KCALS WITH SEDATION; 30KCALS/KG), 90G PROTEIN (1.4G/KG), 1208CC WATER FROM FORMULA DISCUSSED AT ROUNDS WITH MD WILL DECREASE FREE WATER FLUSHES 240ML Q 8HRS TO PROVIDE 1928ML TOTAL WATER FROM FORMULA AND FLUSHES (30.6ML/KG) TF FORMULA APPROPRIATE TO PROMOTE WOUND HEALING MONITOR TOLERANCE, RESIDUALS AND LYTES
--- NOTE | 2021-07-22 14:35 | MHC.CM.PN ---
Pt remains in ICU on ventilatory support secondary to COVID: Her FiO2 requirements are down to 50% and her anxiety is better managed with Versed. MD is cautiously optimistic that pt may be able to extubate without trach. Pt has been referred to [facility] if she is unable to vent wean. Pt has significant barriers to d/c including lack of payor source. Pt has HSN only and is not eligible for a [employer] plan or spousal add on until 08/08/21. No payor will prevent her from VNA, STR and home O2. Pt has been [place] by [facility] [place]. CM to follow for finalization of d/c plans
[2021-07-22] MEDS: clonazePAM 1 MG TABLET PO ×2 (15:08→22:00)
[2021-07-22] MEDS: dexmedeTOMIDidine HCL/NS 400 MCG/100 ML INFUS..BTL 9.05 MCG IVCONT ×2 (15:11→23:41)
[2021-07-22 18:09] LABS: Glucose, Whole Blood 165 mg/dL (60-115)
[2021-07-22] MEDS: Metoclopramide HCl 10 MG/2 ML VIAL IVPUSH (18:29)
--- NOTE | 2021-07-22 18:50 | P.PNCC_ITS ---
Subjective Subjective Date of Service: 07/22/21 Interval History: Mrs. Astudillo was transferred to the ICU Jul 02 with hypoxemic respiratory failure 2? COVID pneumonia. The patient is a 41-year-old woman with limited past medical history of only nephrolithiasis.? She also has a history of breast biopsy and laparoscopic cholecystectomy.? She takes no medications on the outside.? She is Hungarian- speaking only. She presented to the ED on 06/30 with a 9 day history of nausea, vomiting, shortness of breath, cough, fever, and pleuritic chest pain.? Reportedly, she tested positive for COVID (elsewhere) on June 26.? (I?m assuming symptom onset date approx. June 21.)? According to the patient?s , everyone in the family had COVID; they were all unvaccinated. In the ED, Sat was 93% on room air.? CXR showed typical bilat COVID infitrates.? CTPA notable for moderate severity typical bilat COVID infiltrates.? No PE or right heart strain.? Incidental finding on the CT scan were deep bilateral breast masses with central calcification.? Labs in the ED showed low-normal white count with mild leukopenia.? Chemistries were unremarkable except for mild hyperglycemia; no biomarkers were sent. She was admitted to Medicine and treated with dexamethasone.? She was not given remdesivir.? Her oxygen requirement escalated rapidly and within 36 hrs she was on HFNC 100%.? That morning (07/02), she was transferred to the ICU.? Bec of her rapid FiO2 escalation and her CT scan, her risk of was judged to be not insubstantial.? She was therefore started on the full EVMS protocol, including ivermectin and Solumedrol 80mg bid, plus vit D, vit C, ASA, thiamine, and zinc. She had a progressive course of increasing oxygen requirement, escalating through HFNC w NRBFM, then NIV.? Anxiety was a major feature of her clinical course. ?Mult agents (in addition to fentanyl) were tried, including Ativan, ketamine, and Precedex, with not very great success.? On Jul 08, new pneumomediastinum was detected on CT scan.? The scan also showed much worse C OVID infiltrates.? The pneumomediastinum did not worsen, and was not seen on subsequent films.? The patient was ultimately intubated on Jul 15.? Her CXR has progressively worsened. On July 17, she had a low grade fever, her WBC bumped, and her CXR looked worse, with more bilat lower lobe opacity, although oxygenation was not worse.? Tube feeds were suctioned from her oropharynx, and it was thought that she might have aspirated.? She was started on vancomycin and Zosyn, which was subsequently changed to doxycycline The next day, Jul 18, we were able to easily get her FiO2 down to 70%, and even 60% for a brief period.? We stopped the Versed infusion she was on, and started her on Seroquel.? That didn?t work out.? She became much more awake and consequently became more agitated, had ventilator dysynchrony and higher FiO2 requirement, even though we increased the Seroquel to 75 mg bid.? Had to put her back on the midazolam drip and added Klonopin, up to 1mg q8hr now.? Also started her on Lantus insulin. Today, her FiO2 was able to get down to as low as 40%.? I added low dose Precedex bec of recurrent tachycardia.? This afternoon, she?s well sedated on propofol 50ug, Precedex @ 0.5, fent 150ug, Versed 2mg/hr, plus the Klonopiin.? Phenylephrine is off.? HR 63, SR.? BP 140/89.? On PRVC 18/400/45%/+14, RR is 18, Vt 440cc, Ve 6.4L, PIP 26cm, ETCO2 36, Sat 93%.? This morning?s CVBG showed 7.45/45/+7.? She is afebrile.? No jugular venous distention with the head of the bed at 30 degrees.? Normal expiratory phase.? Trace edema. Fluid balance: Net 1.5L positive. LABORATORY DATA:? As below.? Notably, white count is down further to 5, sodium is down to 139, BUN/creatinine steady, POCs are in the mid-100s to mid-200s. MICROBIOLOGY:? Sputum from July 17 showed 4+ polys, 3+ Gram-positive cocci, grew 4+ MSSA. ECHO Jul [address] Ponce looked normal, accord to his report. IMPRESSION:? Generally previously healthy woman. 1. Mild obesity. 2. COVID-19 pneumonia.? Symptom onset date estimated to be June 21.? SARs CoV 2 IgG negative on 07/01.? She?s on Solumedrol 80mg bid and ASA.? She had two days of ivermectin three weeks ago.? On 07/18, I changed her ASA to 325 mg daily and added Vit D, Vit C, Pepcid, thiamine, and zinc. 3. Acute hypoxemic respiratory failure.? Secondary to above.? Oxygenation is much improved over last 48 hrs.? So much so that tracheostomy is potentially zion idable, if we could get her agitation controlled.? The latter may be the factor that forces a trach.? We?ll see how she does over the next two days. 4. ID:? Very positive Gram stain and culture.? WBC and temp are down after the abx.? Can?t say for certain that she had a staph ?pneumonia?, but her numbers responded well to anti-staphylococcal abx.? Vancomycin was discontinued after the sensitivities came back and she was started on doxycycline.? We?ll give her another 1 day. 5. Hyperglycemia.? Hb A1c was 6.0%, which is the upp limit of normal.? So she probably has borderline DM.? Now aggravated by the steroids.? Currently on SS insulin + Lantus, POCs running up to mid-200?s.? I?ll bump her Lantus to 40u qPM. 6. Tube feed intolerance.? Prn Reglan has worked very well. 7. Nutrition.? On Promote @ 60cc/hr. 8. Hypernatremia.? Sodium level came down w water flushes. 9. Incidental breast masses on CT.? Based on her hx, I?m guessing that these are known, but they require f/u by her PMD after dischg. Critical care time:? 50 min. Critical Care Time (minutes): 50 Physical Exam Vital Signs: Vital Signs: Last Vital Signs Temp 97.0 F 07/22/21 18:00 Pulse 62 07/22/21 18:00 Resp 15 07/22/21 18:00 BP 122/89 07/22/21 18:00 Pulse Ox 91 L 07/22/21 18:00 Body Mass Index 26.5 Objective Data Labs CBC & Chem 7: 07/22/21 05:15 07/22/21 05:15 Labs: Laboratory Results - last 24 hr 07/21/21 07/21/21 07/22/21 20:45 23:31 04:57 WBC RBC Hgb Hct MCV MCH MCHC RDW Plt Count MPV Immature Gran % (Auto) Neut % (Auto) Lymph % (Auto) [place] % (Auto) Eos % (Auto) Baso % (Auto) Lymph # (Auto) [place] # (Auto) Eos # (Auto) Baso # (Auto) Abs Immat Gran (auto) Absolute Neuts (auto) Absolute Nucleated RBC Nucleated RBC % (auto) VBG pH VBG pCO2 VBG pO2 VBG HCO3 VBG O2 Saturation VBG Base Excess Sodium Potassium Chloride Carbon Dioxide Anion Gap BUN Creatinine Estim Creat Clear Calc Estimated GFR POC Glucose 181 H 147 H 259 H Random Glucose Calcium Phosphorus Magnesium Albumin 07/22/21 07/22/21 07/22/21 05:14 05:15 05:15 WBC 5.4 RBC 3.52 L Hgb 8.6 L Hct 28.8 L MCV 81.8 MCH 24.4 L MCHC 29.9 L RDW 18.6 H Plt Count 176 MPV 9.7 Immature Gran % (Auto) 0.7 H Neut % (Auto) 87.4 H Lymph % (Auto) 9.3 L [place] % (Auto) 2.4 Eos % (Auto) 0.2 Baso % (Auto) 0.0 Lymph # (Auto) 0.5 L [place] # (Auto) 0.1 Eos # (Auto) 0.0 Baso # (Auto) 0.0 Abs Immat Gran (auto) 0.04 H Absolute Neuts (auto) 4.7 Absolute Nucleated RBC 0.000 Nucleated RBC % (auto) 0.0 VBG pH 7.45 H VBG pCO2 45 VBG pO2 41 VBG HCO3 32 H VBG O2 Saturation 69.0 VBG Base Excess 7.6 Sodium 139 Potassium 4.7 Chloride 101 Carbon Dioxide 34 H Anion Gap 9 L BUN 16 Creatinine 0.55 Estim Creat Clear Calc 132.9 Estimated GFR > 60 POC Glucose Random Glucose 287 H Calcium 8.4 Phosphorus 3.0 Magnesium 1.9 Albumin 2.9 L 07/22/21 07/22/21 11:41 17:53 WBC RBC Hgb Hct MCV MCH MCHC RDW Plt Count MPV Immature Gran % (Auto) Neut % (Auto) Lymph % (Auto) [place] % (Auto) Eos % (Auto) Baso % (Auto) Lymph # (Auto) [place] # (Auto) Eos # (Auto) Baso # (Auto) Abs Immat Gran (auto) Absolute Neuts (auto) Absolute Nucleated RBC Nucleated RBC % (auto) VBG pH VBG pCO2 VBG pO2 VBG HCO3 VBG O2 Saturation VBG Base Excess Sodium Potassium Chloride Carbon Dioxide Anion Gap BUN Creatinine Estim Creat Clear Calc Estimated GFR POC Glucose 261 H 165 H Random Glucose Calcium Phosphorus Magnesium Albumin Microbiology Microbiology Results: Microbiology 07/17/21 09:48 Sputum - Suctioned Gram Stain - Final 07/17/21 09:48 Sputum - Suctioned Sputum Culture - Final Staphylococcus aureus 07/01/21 00:37 Blood - Venous Blood Culture - Final No growth after 5 days. 07/01/21 00:37 Blood - Venous Blood Culture - Final No growth after 5 days. 07/02/21 15:55 Urine clean catch - Urine ortiz top Urine Culture - Final Quality Stroke Does the patient have a stroke diagnosis?: No VTE Prior VTE?: No VTE Risk Level:: Medical - moderate - high VTE Device Contraindication: Treatment Not Indicated VTE Drug Contraindication: N/A - Med Ordered Critical Care Time Critical Care Time (minutes): 60
[2021-07-22] MEDS: Insulin Glargine,Hum.rec.anlog 100 UNIT/ML 10 ML VIAL 40 UNIT SUBCUT (21:59)
[2021-07-23] VITALS (29 sets, daily range): BP systolic 88–143; BP diastolic 49–92; PULSE 57–86; RESP 14–24; TEMP 36.1–37.5; O2SAT 89–98; BMI 26.0
[2021-07-23] MEDS: Chlorhexidine Gluc Oral Rinse 15 ML MOUTHWASH BUCCAL ×4 (00:05→21:50)
[2021-07-23 00:12] LABS: Glucose, Whole Blood 152 mg/dL (60-115)
[2021-07-23] MEDS: fentaNYL citrate/NS 1,000 MCG/100 ML PLAST..BAG 15 MCG IVCONT ×4 (01:37→23:41)
--- NOTE | 2021-07-23 03:33 | PC.NURSE ---
Pt remains on AC/VC vent settings. No resp difficulties. O2 sats 93-97%. O2 sat goes down with repositioning to upper 90's. Small amt of thick sputum suctioned via ETT. Tube feeds had high aspiration amounts yesterday. Since 1899, have aspirated 90-160 ml. Tube feed rate dropped to 20 ml/hr. Vital signs stable. Afebrile. Monitor shows SB-SR, 50's-60's, no ectopy. U/O is good, about 100 ml/hr.
[2021-07-23] MEDS: propofoL 1,000 MG/100 ML VIAL 19.02 MG IVCONT ×5 (04:11→23:40)
[2021-07-23 05:11] LABS: VBG Base Excess 15.1 mmol/L; VBG HCO3 40 mmol/L (22-26); VBG pCO2 52 mmHg; VBG pH 7.49 (7.32-7.43); VBG pO2 41 mmHg
[2021-07-23 05:21] LABS: MANUAL DIFF FLAG NO
[2021-07-23 05:23] LABS: Hematocrit 28.2 % (37-47); Hemoglobin 8.8 g/dl (12.0-16.0); Imm Gran Abs Auto 0.04 X10*3/uL (0.00-0.03); Imm Gran Pct Auto 0.7 % (0.0-0.4); Lymphocytes Absolute Auto 0.5 X10*3/uL (1.2-4.9); Lymphocytes Percent Auto 8.7 % (20-40); Mean Corpuscular HGB Conc 31.2 g/dl (31.0-35.0); Mean Corpuscular Hemoglobin 25.1 pg (27.0-33.0); Mean Corpuscular Volume 80.6 fL (80-98); Mean Platelet Volume 9.5 fL (9.4-12.3); Monocytes Absolute Auto 0.1 X10*3/uL (0.1-1.2); Neutrophils Absolute Auto 4.8 X10*3/uL (2.0-8.3); Neutrophils Percent Auto 88.6 % (45-73); Platelet Count 176 X10*3/uL (160-400); Red Cell Distribution Width 18.4 % (11.0-16.0); White Blood Count 5.4 X10*3/uL (4.8-10.8)
[2021-07-23] MEDS: Ascorbic Acid 500 MG TABLET 1000 MG PO ×4 (05:41→23:39)
[2021-07-23 05:44] LABS: Glucose, Whole Blood 223 mg/dL (60-115)
[2021-07-23 05:49] LABS: Albumin Level 2.9 g/dL (3.5-5.0); Anion Gap 10 (12-20); Blood Urea Nitrogen 16 mg/dL (9-16); Calcium 8.8 mg/dL (8.4-10.2); Carbon Dioxide 35 mmol/L (22-29); Chloride 102 mmol/L (96-108); Creatinine Clr Calc Pharmacy 137.9; Estimated Glomerular Filt Rate > 60; Glucose Random 238 mg/dL (60-115); Magnesium 1.8 mg/dL (1.6-2.6); Phosphorus 3.7 mg/dL (2.7-4.5); Potassium 4.5 mmol/L (3.3-5.1); Sodium 142 mmol/L (135-145)
[2021-07-23] MEDS: Insulin Lispro 100 UNIT/ML 3 ML VIAL SUBCUT ×2 (06:14→11:55)
[2021-07-23 07:13] LABS: Venous Blood Gas Refer to POC result
[2021-07-23] MEDS: 0.9 % Sodium Chloride Flush 3 ML SYRINGE IVFLUSH ×3 (07:17→23:41)
[2021-07-23] MEDS: Doxycycline Hyclate 100 MG in 0.9 % Sodium Chloride 250 ML 166.67 MG IV ×2 (07:17→19:44)
[2021-07-23] MEDS: methylPREDNISolone Sod Succ 125 MG/2 ML VIAL 80 MG IVPUSH ×2 (07:18→21:49)
[2021-07-23] MEDS: Zinc Sulfate 220 MG CAPSULE PO (07:18)
[2021-07-23] MEDS: clonazePAM 1 MG TABLET PO ×3 (07:18→21:45)
[2021-07-23] MEDS: Enoxaparin Sodium 40 MG/0.4 ML SYRINGE SUBCUT (07:18)
[2021-07-23] MEDS: Thiamine HCL 100 MG TABLET 200 MG PO ×2 (07:18→21:44)
[2021-07-23] MEDS: Aspirin 325 MG TABLET PO (07:19)
[2021-07-23] MEDS: Famotidine 20 MG TABLET 40 MG PO ×2 (07:19→21:46)
[2021-07-23] MEDS: Cholecalciferol (Vitamin D3) 25 MCG TABLET 50 MCG PO (07:19)
[2021-07-23 11:51] LABS: Glucose, Whole Blood 189 mg/dL (60-115)
[2021-07-23] MEDS: dexmedeTOMIDidine HCL/NS 400 MCG/100 ML INFUS..BTL 9.05 MCG IVCONT ×2 (11:59→23:39)
--- NOTE | 2021-07-23 17:24 | PM.CCPN ---
Subjective Subjective Date of Service: 07/23/21 Interval History: Mrs. Astudillo was transferred to the ICU Jul 02 with hypoxemic respiratory failure 2? COVID pneumonia. The patient is a 41-year-old woman with limited past medical history of only nephrolithiasis.? She also has a history of breast biopsy and laparoscopic cholecystectomy.? She takes no medications on the outside.? She is Welsh-speaking only. She presented to the ED on 06/30 with a 9 day history of nausea, vomiting, shortness of breath, cough, fever, and pleuritic chest pain.? Reportedly, she tested positive for COVID (elsewhere) on June 26.? (I?m assuming symptom onset date approx. June 21.)? According to the patient?s , everyone in the family had COVID; they were all unvaccinated. In the ED, Sat was 93% on room air.? CXR showed typical bilat COVID infitrates.? CTPA notable for moderate severity typical bilat COVID infiltrates.? No PE or right heart strain.? Incidental finding on the CT scan were deep bilateral breast masses with central calcification.? Labs in the ED showed low-normal white count with mild leukopenia.? Chemistries were unremarkable except for mild hyperglycemia; no biomarkers were sent. She was admitted to Medicine and treated with dexamethasone.? She was not given remdesivir.? Her oxygen requirement escalated rapidly and within 36 hrs she was on HFNC 100%.? That morning (07/02), she was transferred to the ICU.? Bec of her rapid FiO2 escalation and her CT scan, her risk of was judged to be not insubstantial.? She was therefore started on the full EVMS protocol, including ivermectin and Solumedrol 80mg bid, plus vit D, vit C, ASA, thiamine, and zinc. She had a progressive course of increasing oxygen requirement, escalating through HFNC w NRBFM, then NIV.? Anxiety was a major feature of her clinical course.? Mult agents (in addition to fentanyl) were tried, including Ativan, ketamine, and Precedex, with not very great success.? On Jul 08, new pneumomediastinum was detected on CT scan.? The scan also showed much worse COVID infiltrates.? The pneumomediastinum did not worsen, and was not seen on subsequent films.? The patient was ultimately intubated on Jul 15.? Her CXR has progressively worsened. On July 17, she had a low grade fever, her WBC bumped, and her CXR looked worse, with more bilat lower lobe opacity, although oxygenation was not worse.? Tube feeds were suctioned from her oropharynx, and it was thought that she might have aspirated.? She was started on vancomycin and Zosyn, which was subsequently changed to doxycycline The next day, Jul 18, we were able to easily get her FiO2 down to 70%, and even 60% for a brief period.? We stopped the Versed infusion she was on, and started her on Seroquel.? That didn?t work out.? She became much more awake and consequently became more agitated, had ventilator dysynchrony and higher FiO2 requirement, even though we increased the Seroquel to 75 mg bid.? Had to put her back on the midazolam drip and added Klonopin, up to 1mg q8hr now.? Then yesterday we had to add low dose Precedex.? We also started her on Lantus insulin. Today, her FiO2 is down to 45% all day.? She?s well sedated on propofol 50ug, Precedex @ 0.5, versed 2mg/hr, fent 150ug, plus Klonopin 1mg tid.? HR 74, SR.? BP 104/65.? On PRVC 18/400/45%/+14, RR is 18, avg Vt 480cc, Ve 6.5L, PIP 27cm, ETCO2 41, Sat 96%.? This morning?s CVBG showed 7.49/52/+15.? She is afebrile.? No jugular venous distention with the head of the bed at 30 degrees.? Normal expiratory phase.? Trace edema. Fluid balance: Net 1.7L positive. LABORATORY DATA:? As below.? Notably, sodium is down to 139, BUN/creatinine steady, POCs are in the 200 range. MICROBIOLOGY:? Sputum from July 17 showed 4+ polys, 3+ Gram-positive cocci, grew 4+ MSSA. ECHO Jul [address] Ponce looked normal, accord to his report. IMPRESSION:? Generally previously healthy woman. 1. Mild obesity. 2. COVID-19 pneumonia.? Symptom onset date estimated to be June 21.? SARs CoV 2 IgG negative on 07/01.? She?s on Solumedrol 80mg bid and ASA.? She had two days of ivermectin three weeks ago.? On 07/18, I changed her ASA to 325 mg daily and added Vit D, Vit C, Pepcid, thiamine, and zinc. 3. Acute hypoxemic respiratory failure.? Secondary to above.? Oxygenation is much improved over last 48 hrs.? So much so that tracheostomy is potentially avoidable, if we can control her agitation.? The latter may be the factor that forces a trach.? Continuing to reduce her FiO2 and starting now to reduce her PEEP level. ?We?ll d/c the Versed infusion.? We?ll see how she does over the next two days.? I?ll also put her on Lasix 20 mg daily. 4. ID:? Very positive Gram stain and culture.? WBC and temp are down after the abx.? Can?t say for certain that she had a staph ?pneumonia?, but her numbers responded well to anti-staphylococcal abx.? Vancomycin was discontinued after the sensitivities came back and she was started on doxycycline.? Got 7 days total of abx.? Now d/c?d. 5. Hyperglycemia.? Hb A1c was 6.0%, which is the upp limit of normal.? So she probably has borderline DM.? Now aggravated by the steroids.? Currently on SS insulin + Lantus, POCs running up to 200?s.? I?ll bump her Lantus to 20u bid. 6. Tube feed intolerance.? Prn Reglan has worked very well. 7. Nutrition.? On Promote @ 60cc/hr. 8. Hypernatremia.? Sodium level came down w water flushes. 9. Metabolic alkalosis.? Restart Diamox. 10. Incidental breast masses on CT.? Based on her hx, I?m guessing that these are known, but they require f/u by her PMD after dischg. I spoke w the today by telephone and told him she was getting better, might need a tracheostomy. Critical care time:? 50 min. Critical Care Time (minutes): 50 Physical Exam Vital Signs: Vital Signs: Last Vital Signs Temp 99.0 F 07/23/21 17:00 Pulse 75 07/23/21 17:00 Resp 21 H 07/23/21 17:00 BP 104/65 07/23/21 17:00 Pulse Ox 93 07/23/21 17:00 Body Mass Index 26.0 Objective Data Labs CBC & Chem 7: 07/23/21 05:05 07/23/21 05:05 Labs: Laboratory Results - last 24 hr 07/22/21 07/22/21 07/23/21 17:53 23:47 05:05 WBC 5.4 RBC 3.50 L Hgb 8.8 L Hct 28.2 L MCV 80.6 MCH 25.1 L MCHC 31.2 RDW 18.4 H Plt Count 176 MPV 9.5 Immature Gran % (Auto) 0.7 H Neut % (Auto) 88.6 H Lymph % (Auto) 8.7 L [place] % (Auto) 2.0 Eos % (Auto) 0.0 Baso % (Auto) 0.0 Lymph # (Auto) 0.5 L [place] # (Auto) 0.1 Eos # (Auto) 0.0 Baso # (Auto) 0.0 Abs Immat Gran (auto) 0.04 H Absolute Neuts (auto) 4.8 Absolute Nucleated RBC 0.000 Nucleated RBC % (auto) 0.0 VBG pH VBG pCO2 VBG pO2 VBG HCO3 VBG O2 Saturation VBG Base Excess Sodium Potassium Chloride Carbon Dioxide Anion Gap BUN Creatinine Estim Creat Clear Calc Estimated GFR POC Glucose 165 H 152 H Random Glucose Calcium Phosphorus Magnesium Albumin 07/23/21 07/23/21 07/23/21 05:05 05:05 05:38 WBC RBC Hgb Hct MCV MCH MCHC RDW Plt Count MPV Immature Gran % (Auto) Neut % (Auto) Lymph % (Auto) [place] % (Auto) Eos % (Auto) Baso % (Auto) Lymph # (Auto) [place] # (Auto) Eos # (Auto) Baso # (Auto) Abs Immat Gran (auto) Absolute Neuts (auto) Absolute Nucleated RBC Nucleated RBC % (auto) VBG pH 7.49 H VBG pCO2 52 VBG pO2 41 VBG HCO3 40 H VBG O2 Saturation 67.0 VBG Base Excess 15.1 Sodium 142 Potassium 4.5 Chloride 102 Carbon Dioxide 35 H Anion Gap 10 L BUN 16 Creatinine 0.53 Estim Creat Clear Calc 137.9 Estimated GFR > 60 POC Glucose 223 H Random Glucose 238 H Calcium 8.8 Phosphorus 3.7 Magnesium 1.8 Albumin 2.9 L 07/23/21 11:48 WBC RBC Hgb Hct MCV MCH MCHC RDW Plt Count MPV Immature Gran % (Auto) Neut % (Auto) Lymph % (Auto) [place] % (Auto) Eos % (Auto) Baso % (Auto) Lymph # (Auto) [place] # (Auto) Eos # (Auto) Baso # (Auto) Abs Immat Gran (auto) Absolute Neuts (auto) Absolute Nucleated RBC Nucleated RBC % (auto) VBG pH VBG pCO2 VBG pO2 VBG HCO3 VBG O2 Saturation VBG Base Excess Sodium Potassium Chloride Carbon Dioxide Anion Gap BUN Creatinine Estim Creat Clear Calc Estimated GFR POC Glucose 189 H Random Glucose Calcium Phosphorus Magnesium Albumin Microbiology Microbiology Results: Microbiology 07/17/21 09:48 Sputum - Suctioned Gram Stain - Final 07/17/21 09:48 Sputum - Suctioned Sputum Culture - Final Staphylococcus aureus 07/01/21 00:37 Blood - Venous Blood Culture - Final No growth after 5 days. 07/01/21 00:37 Blood - Venous Blood Culture - Final No growth after 5 days. 07/02/21 15:55 Urine clean catch - Urine ortiz top Urine Culture - Final Quality Stroke Does the patient have a stroke diagnosis?: No VTE Prior VTE?: No VTE Risk Level:: Medical - moderate - high VTE Device Contraindication: Treatment Not Indicated VTE Drug Contraindication: N/A - Med Ordered Critical Care Time Critical Care Time (minutes): 60
[2021-07-23 17:41] LABS: Glucose, Whole Blood 141 mg/dL (60-115)
[2021-07-23] MEDS: Furosemide 20 MG/2 ML VIAL IVPUSH (17:45)
--- NOTE | 2021-07-23 19:28 | PC.NURSE ---
ABLE TO TITRATE FI02 DOWN TO 40%. 02 GOAL > 90% PER MD. VERSED GTT PAUSED AT 0700 PER MD. LASIX 20 MG IVP X 1 ADMINISTERED. TUBE FEEDS REMAIN PROMOTE AT 20 ML/HR. HIGH RESIDUALS 100-120 ML. UPDATED BY RN AND . SETUP FACETIME.
[2021-07-23] MEDS: Albumin Human 25 % 50 ML 100 ML IV (21:46)
[2021-07-23] MEDS: Insulin Glargine,Hum.rec.anlog 100 UNIT/ML 10 ML VIAL 20 UNIT SUBCUT (21:48)
[2021-07-24] VITALS (30 sets, daily range): BP systolic 83–117; BP diastolic 46–75; PULSE 62–108; RESP 12–25; TEMP 37.1–37.6; O2SAT 90–100; BMI 25.9
[2021-07-24] LABS: Glucose, Whole Blood 142 mg/dL (60-115)
[2021-07-24] MEDS: propofoL 1,000 MG/100 ML VIAL 19.02 MG IVCONT ×4 (03:44→20:28)
[2021-07-24 05:25] LABS: VBG Base Excess 16.2 mmol/L; VBG HCO3 41 mmol/L (22-26); VBG pCO2 53 mmHg; VBG pO2 44 mmHg
[2021-07-24 05:27] LABS: Venous Blood Gas Refer to POC result
[2021-07-24 05:31] LABS: MANUAL DIFF FLAG NO
[2021-07-24 05:32] LABS: Glucose, Whole Blood 217 mg/dL (60-115)
[2021-07-24 05:39] LABS: Eosinophils Percent Auto 0.2 % (0-4); Hematocrit 27.6 % (37-47); Hemoglobin 8.6 g/dl (12.0-16.0); Imm Gran Abs Auto 0.03 X10*3/uL (0.00-0.03); Imm Gran Pct Auto 0.5 % (0.0-0.4); Lymphocytes Absolute Auto 0.6 X10*3/uL (1.2-4.9); Lymphocytes Percent Auto 10.4 % (20-40); Mean Corpuscular HGB Conc 31.2 g/dl (31.0-35.0); Mean Corpuscular Hemoglobin 24.9 pg (27.0-33.0); Mean Platelet Volume 10.1 fL (9.4-12.3); Monocytes Absolute Auto 0.2 X10*3/uL (0.1-1.2); Monocytes Percent Auto 3.3 % (2-11); Neutrophils Absolute Auto 5.1 X10*3/uL (2.0-8.3); Neutrophils Percent Auto 85.6 % (45-73); Platelet Count 198 X10*3/uL (160-400); Red Blood Count 3.45 X10*6/uL (4.20-5.50); Red Cell Distribution Width 18.5 % (11.0-16.0)
[2021-07-24 05:48] LABS: Anion Gap 10 (12-20); Blood Urea Nitrogen 19 mg/dL (9-16); Calcium 8.9 mg/dL (8.4-10.2); Carbon Dioxide 36 mmol/L (22-29); Chloride 99 mmol/L (96-108); Creatinine Clr Calc Pharmacy 131.7; Estimated Glomerular Filt Rate > 60; Glucose Random 236 mg/dL (60-115); Magnesium 1.8 mg/dL (1.6-2.6); Phosphorus 4.2 mg/dL (2.7-4.5); Potassium 4.2 mmol/L (3.3-5.1); Sodium 141 mmol/L (135-145)
[2021-07-24] MEDS: Ascorbic Acid 500 MG TABLET 1000 MG PO ×3 (06:09→18:23)
[2021-07-24] MEDS: Chlorhexidine Gluc Oral Rinse 15 ML MOUTHWASH BUCCAL ×3 (06:09→21:12)
[2021-07-24] MEDS: fentaNYL citrate/NS 1,000 MCG/100 ML PLAST..BAG 15 MCG IVCONT ×3 (06:10→20:28)
[2021-07-24] MEDS: Insulin Lispro 100 UNIT/ML 3 ML VIAL SUBCUT ×3 (06:10→18:24)
[2021-07-24] MEDS: 0.9 % Sodium Chloride Flush 3 ML SYRINGE IVFLUSH ×2 (08:17→15:59)
[2021-07-24] MEDS: dexmedeTOMIDidine HCL/NS 400 MCG/100 ML INFUS..BTL 13.58 MCG IVCONT (08:17)
[2021-07-24] MEDS: methylPREDNISolone Sod Succ 125 MG/2 ML VIAL 80 MG IVPUSH ×2 (08:17→20:28)
[2021-07-24] MEDS: Furosemide 20 MG/2 ML VIAL IVPUSH (08:17)
[2021-07-24] MEDS: Enoxaparin Sodium 40 MG/0.4 ML SYRINGE SUBCUT (08:17)
[2021-07-24] MEDS: Cholecalciferol (Vitamin D3) 25 MCG TABLET 50 MCG PO (08:18)
[2021-07-24] MEDS: Zinc Sulfate 220 MG CAPSULE PO (08:18)
[2021-07-24] MEDS: clonazePAM 1 MG TABLET PO ×3 (08:18→20:29)
[2021-07-24] MEDS: acetaZOLAMIDE 250 MG TABLET 500 MG G-TUBE ×2 (08:18→20:28)
[2021-07-24] MEDS: Aspirin 325 MG TABLET PO (08:18)
[2021-07-24] MEDS: Famotidine 20 MG TABLET 40 MG PO ×2 (08:19→20:29)
[2021-07-24] MEDS: Insulin Glargine,Hum.rec.anlog 100 UNIT/ML 10 ML VIAL 20 UNIT SUBCUT (08:19)
--- NOTE | 2021-07-24 09:56 | PC.NURSE ---
Addendum entered by Herbert Magaña RN 07/24/21 10:22: prop titrated down to 30mcg/kg/min from 50, precedex titrated down to 0.5mcg/kg/hr 2/2 hypotension 88/44, BP up to 93/53 MAP 68. MD aware. Original Note: Pt intubated sedated #7.5 ET tube 22cm at the lip, ACVC+ Ti 0.9s, rate 18, PEEP 14, Vt 400, FiO2 40%, ETCO2 37, SaO2 94%, actual RR18, peak pressure 35. Lungs are dim with fine crackles in bases. Minimal inline secretions. Neurologically pupils 3mm PERRLA, positive cough/gag, did not open eyes to voice, not moving extremities spontaneously at this time. Pt is NSR, no overt edema, BP 88/44 after diamox OG tube and lasix 20 IVP given. MD Karrie notified. positive bowel sounds x4q, residuals 75ml, increased to 30ml/hr. rectal tube liquid brown stool small amt. Bed locked and in lowest positition.
--- NOTE | 2021-07-24 10:41 | PM.CCPN ---
Subjective Subjective Date of Service: 07/24/21 Interval History: Mrs. Astudillo was transferred to the ICU Jul 02 with hypoxemic respiratory failure 2? COVID pneumonia. The patient is a 41-year-old woman with limited past medical history of only nephrolithiasis.? She also has a history of breast biopsy and laparoscopic cholecystectomy.? She takes no medications on the outside.? She is Georgian-speaking only. She presented to the ED on 06/30 with a 9 day history of nausea, vomiting, shortness of breath, cough, fever, and pleuritic chest pain.? Reportedly, she tested positive for COVID (elsewhere) on June 26.? (I?m assuming symptom onset date approx. June 21.)? According to the patient?s , everyone in the family had COVID; they were all unvaccinated. In the ED, Sat was 93% on room air.? CXR showed typical bilat COVID infitrates.? CTPA notable for moderate severity typical bilat COVID infiltrates.? No PE or right heart strain.? Incidental finding on the CT scan were deep bilateral breast masses with central calcification.? Labs in the ED showed low-normal white count with mild leukopenia.? Chemistries were unremarkable except for mild hyperglycemia; no biomarkers were sent. She was admitted to Medicine and treated with dexamethasone.? She was not given remdesivir.? Her oxygen requirement escalated rapidly and within 36 hrs she was on HFNC 100%.? That morning (07/02), she was transferred to the ICU.? Bec of her rapid FiO2 escalation and her CT scan, her risk of was judged to be not insubstantial.? She was therefore started on the full EVMS protocol, including ivermectin and Solumedrol 80mg bid, plus vit D, vit C, ASA, thiamine, and zinc. She had a progressive course of increasing oxygen requirement, escalating through HFNC w NRBFM, then NIV.? Anxiety was a major feature of her clinical course.? Mult agents (in addition to fentanyl) were tried, including Ativan, ketamine, and Precedex, with not very great success.? On Jul 08, new pneumomediastinum was detected on CT scan.? The scan also showed much worse COVID infiltrates.? The pneumomediastinum did not worsen, and was not seen on subsequent films.? The patient was ultimately intubated on Jul 15.? Her CXR has progressively worsened. On July 17, she had a low grade fever, her WBC bumped, and her CXR looked worse, with more bilat lower lobe opacity, although oxygenation was not worse.? Tube feeds were suctioned from her oropharynx, and it was thought that she might have aspirated.? She was started on vancomycin and Zosyn, which was subsequently changed to doxycycline The next day, Jul 18, we were able to easily get her FiO2 down to 70%, and even 60% for a brief period.? We stopped the Versed infusion she was on, and started her on Seroquel.? That didn?t work out.? She became much more awake and consequently became more agitated, had ventilator dysynchrony and higher FiO2 requirement, even though we increased the Seroquel to 75 mg bid.? Had to put her back on the midazolam drip and added Klonopin, up to 1mg q8hr now.? Then Jul 22 we had to add low dose Precedex.? We also started her on Lantus insulin. Yesterday her sedation was much improved on the Precedex, we got her down to 45% FiO2, and we were able to turn off the Versed infusion. This morning, FiO2 is down to 40% and I dropped the PEEP to 12cm.? We turnd the propofol down to 30ug, and turned the Precedex down to 0.5ug.? Fentanyl is at 150 ug, the Versed is still off, and she?s on Klonopin 1mg tid.? She?s well sedated.? HR 75, SR.? BP 94/55.? On PRVC 18/400/40%/+12, RR is 18, avg Vt 460cc, Ve 7L, PIP 27cm, ETCO2 37, Sat 93%.? This morning?s CVBG showed 7.50/53/+16; Diamox was started yesterday.? She is afebrile.? No jugular venous distention with the head of the bed at 30 degrees.? Chest is clear to auscultation, with normal expiratory phase.? No edema. Fluid balance: Net negative 600cc. LABORATORY DATA:? As below.? Notably, BUN up slightly, creatinine steady, POCs are in the 200 range. ECHO Jul [address] Ponce looked normal, accord to his report. IMPRESSION:? Generally previously healthy woman. 1. Mild obesity. 2. COVID-19 pneumonia.? Symptom onset date estimated to be June 21.? SARs CoV 2 IgG negative on 07/01.? She?s on Solumedrol 80mg bid and ASA.? She had two days of ivermectin three weeks ago.? On 07/18, I changed her ASA to 325 mg daily and added Vit D, Vit C, Pepcid, thiamine, and zinc. 3. Acute hypoxemic respiratory failure.? Secondary to above.? Oxygenation is much improved over last 3 days, so much so that I?m now going down on the PEEP and tracheostomy is potentially avoidable, if we can control her agitation.? The latter may be the factor that forces a trach.? Continuing to reduce her FiO2 and starting now to reduce her PEEP level. 4. ID:? Very positive Gram stain and culture on Jul 17.? WBC and temp came down after the abx.? Can?t say for certain that she had a staph ?pneumonia?, but her numbers responded well to anti-staphylococcal abx.? Vancomycin was discontinued after the sensitivities came back and she was started on doxycycline.? Got 7 days total of abx.? Now d/c?d. 5. Hyperglycemia.? Hb A1c was 6.0%, which is the upp limit of normal.? So she probably has borderline DM.? Now aggravated by the steroids.? Currently on SS insulin + Lantus, POCs running up to 200?s.? I?ll bump her Lantus to 25u bid. 6. Tube feed intolerance.? Prn Reglan has worked very well. 7. Nutrition.? On Promote @ 60cc/hr. 8. Hypernatremia.? Sodium level came down w water flushes. 9. Metabolic alkalosis.? Restarted Diamox yesterday. 10. Incidental breast masses on CT.? Based on her hx, I?m guessing that these are known, but they require f/u by her PMD after dischg. I spoke w the yesterday by telephone and told him she was getting better, might need a tracheostomy. ADDENDUM at 5pm:? With the propofol and Precedex down, she became more agitated, and her sats dropped.? I put the propofol back up to 50 mcg, and gave her a bolus of Precedex..? Now better sedated.? On 40% FiO2 and PEEP of 12cm, Sat is up to 95%.? I dropped the PEEP level down to 10 cm. Critical care time:? 50 min. Critical Care Time (minutes): 50 Physical Exam Vital Signs: Vital Signs: Last Vital Signs Temp 99.5 F 07/24/21 10:00 Pulse 77 07/24/21 10:00 Resp 18 07/24/21 10:00 BP 83/46 L 07/24/21 10:00 Pulse Ox 94 07/24/21 10:00 Body Mass Index 25.9 Objective Data Labs CBC & Chem 7: 07/24/21 05:17 07/24/21 05:17 Labs: Laboratory Results - last 24 hr 07/23/21 07/23/21 07/23/21 11:48 17:37 23:41 WBC RBC Hgb Hct MCV MCH MCHC RDW Plt Count MPV Immature Gran % (Auto) Neut % (Auto) Lymph % (Auto) [place] % (Auto) Eos % (Auto) Baso % (Auto) Lymph # (Auto) [place] # (Auto) Eos # (Auto) Baso # (Auto) Abs Immat Gran (auto) Absolute Neuts (auto) Absolute Nucleated RBC Nucleated RBC % (auto) VBG pH VBG pCO2 VBG pO2 VBG HCO3 VBG O2 Saturation VBG Base Excess Sodium Potassium Chloride Carbon Dioxide Anion Gap BUN Creatinine Estim Creat Clear Calc Estimated GFR POC Glucose 189 H 141 H 142 H Random Glucose Calcium Phosphorus Magnesium 07/24/21 07/24/21 07/24/21 05:17 05:17 05:20 WBC 6.0 RBC 3.45 L Hgb 8.6 L Hct 27.6 L MCV 80.0 MCH 24.9 L MCHC 31.2 RDW 18.5 H Plt Count 198 MPV 10.1 Immature Gran % (Auto) 0.5 H Neut % (Auto) 85.6 H Lymph % (Auto) 10.4 L [place] % (Auto) 3.3 Eos % (Auto) 0.2 Baso % (Auto) 0.0 Lymph # (Auto) 0.6 L [place] # (Auto) 0.2 Eos # (Auto) 0.0 Baso # (Auto) 0.0 Abs Immat Gran (auto) 0.03 Absolute Neuts (auto) 5.1 Absolute Nucleated RBC 0.000 Nucleated RBC % (auto) 0.0 VBG pH 7.50 H VBG pCO2 53 VBG pO2 44 VBG HCO3 41 H VBG O2 Saturation 70.0 VBG Base Excess 16.2 Sodium 141 Potassium 4.2 Chloride 99 Carbon Dioxide 36 H Anion Gap 10 L BUN 19 H Creatinine 0.55 Estim Creat Clear Calc 131.7 Estimated GFR > 60 POC Glucose Random Glucose 236 H Calcium 8.9 Phosphorus 4.2 Magnesium 1.8 07/24/21 05:28 WBC RBC Hgb Hct MCV MCH MCHC RDW Plt Count MPV Immature Gran % (Auto) Neut % (Auto) Lymph % (Auto) [place] % (Auto) Eos % (Auto) Baso % (Auto) Lymph # (Auto) [place] # (Auto) Eos # (Auto) Baso # (Auto) Abs Immat Gran (auto) Absolute Neuts (auto) Absolute Nucleated RBC Nucleated RBC % (auto) VBG pH VBG pCO2 VBG pO2 VBG HCO3 VBG O2 Saturation VBG Base Excess Sodium Potassium Chloride Carbon Dioxide Anion Gap BUN Creatinine Estim Creat Clear Calc Estimated GFR POC Glucose 217 H Random Glucose Calcium Phosphorus Magnesium Microbiology Microbiology Results: Microbiology 07/17/21 09:48 Sputum - Suctioned Gram Stain - Final 07/17/21 09:48 Sputum - Suctioned Sputum Culture - Final Staphylococcus aureus 07/01/21 00:37 Blood - Venous Blood Culture - Final No growth after 5 days. 07/01/21 00:37 Blood - Venous Blood Culture - Final No growth after 5 days. 07/02/21 15:55 Urine clean catch - Urine ortiz top Urine Culture - Final Quality Stroke Does the patient have a stroke diagnosis?: No VTE Prior VTE?: No VTE Risk Level:: Medical - moderate - high VTE Device Contraindication: Treatment Not Indicated VTE Drug Contraindication: N/A - Med Ordered Critical Care Time Critical Care Time (minutes): 60
[2021-07-24 12:14] LABS: Glucose, Whole Blood 180 mg/dL (60-115)
[2021-07-24 18:13] LABS: Glucose, Whole Blood 173 mg/dL (60-115)
[2021-07-24] MEDS: dexmedeTOMIDidine HCL/NS 400 MCG/100 ML INFUS..BTL 9.05 MCG IVCONT (18:23)
[2021-07-24] MEDS: Thiamine HCL 100 MG TABLET 200 MG PO (20:28)
[2021-07-24] MEDS: Insulin Glargine,Hum.rec.anlog 100 UNIT/ML 10 ML VIAL 25 UNIT SUBCUT (21:11)
[2021-07-25] VITALS (30 sets, daily range): BP systolic 90–131; BP diastolic 43–85; PULSE 57–127; RESP 11–31; TEMP -12.7–37.5; O2SAT 84–97; BMI 24.7
[2021-07-25] MEDS: Ascorbic Acid 500 MG TABLET 1000 MG PO ×4 (00:22→17:10)
[2021-07-25] MEDS: Albumin Human 25 % 100 ML IV ×2 (00:23→01:56)
[2021-07-25] MEDS: propofoL 1,000 MG/100 ML VIAL 19.02 MG IVCONT ×3 (00:23→21:30)
[2021-07-25 01:27] LABS: Glucose, Whole Blood 196 mg/dL (60-115)
[2021-07-25] MEDS: Insulin Lispro 100 UNIT/ML 3 ML VIAL SUBCUT ×2 (01:55→11:49)
[2021-07-25] MEDS: fentaNYL citrate/NS 1,000 MCG/100 ML PLAST..BAG 15 MCG IVCONT ×2 (01:57→08:26)
[2021-07-25] MEDS: Chlorhexidine Gluc Oral Rinse 15 ML MOUTHWASH BUCCAL ×3 (05:35→21:32)
[2021-07-25] MEDS: propofoL 1,000 MG/100 ML VIAL 17.12 MG IVCONT (05:42)
[2021-07-25] MEDS: dexmedeTOMIDidine HCL/NS 400 MCG/100 ML INFUS..BTL 9.05 MCG IVCONT ×2 (05:43→17:09)
[2021-07-25 06:05] LABS: VBG Base Excess 6.8 mmol/L; VBG HCO3 31 mmol/L (22-26); VBG pCO2 45 mmHg; VBG pH 7.44 (7.32-7.43); VBG pO2 52 mmHg
[2021-07-25 06:18] LABS: Venous Blood Gas Refer to POC result
[2021-07-25 06:20] LABS: Eosinophils Absolute Auto 0.1 X10*3/uL (0.0-0.4); Eosinophils Percent Auto 0.9 % (0-4); Hematocrit 27.3 % (37-47); Hemoglobin 8.2 g/dl (12.0-16.0); Imm Gran Abs Auto 0.03 X10*3/uL (0.00-0.03); Imm Gran Pct Auto 0.5 % (0.0-0.4); Lymphocytes Absolute Auto 0.9 X10*3/uL (1.2-4.9); Lymphocytes Percent Auto 13.6 % (20-40); MANUAL DIFF FLAG NO; Mean Corpuscular Hemoglobin 24.5 pg (27.0-33.0); Mean Corpuscular Volume 81.5 fL (80-98); Mean Platelet Volume 9.9 fL (9.4-12.3); Monocytes Absolute Auto 0.3 X10*3/uL (0.1-1.2); Monocytes Percent Auto 4.1 % (2-11); Neutrophils Absolute Auto 5.2 X10*3/uL (2.0-8.3); Neutrophils Percent Auto 80.9 % (45-73); Platelet Count 180 X10*3/uL (160-400); Red Blood Count 3.35 X10*6/uL (4.20-5.50); Red Cell Distribution Width 18.4 % (11.0-16.0); White Blood Count 6.4 X10*3/uL (4.8-10.8)
[2021-07-25 06:30] LABS: D Dimer 729 NG/ML
[2021-07-25 07:56] LABS: Albumin Level 3.9 g/dL (3.5-5.0); Anion Gap 10 (12-20); Blood Urea Nitrogen 21 mg/dL (9-16); C Reactive Protein 0.24 mg/dL (< or = 0.50); Calcium 9.4 mg/dL (8.4-10.2); Carbon Dioxide 34 mmol/L (22-29); Chloride 105 mmol/L (96-108); Estimated Glomerular Filt Rate > 60; Glucose Random 145 mg/dL (60-115); Lactate Dehydrogenase 303 U/L (122-220); Magnesium 2.1 mg/dL (1.6-2.6); Phosphorus 4.5 mg/dL (2.7-4.5); Potassium 3.7 mmol/L (3.3-5.1); Sodium 145 mmol/L (135-145)
[2021-07-25 08:06] LABS: Glucose, Whole Blood 157 mg/dL (60-115)
[2021-07-25] MEDS: Enoxaparin Sodium 40 MG/0.4 ML SYRINGE SUBCUT (08:20)
[2021-07-25] MEDS: 0.9 % Sodium Chloride Flush 3 ML SYRINGE IVFLUSH ×2 (08:20→12:39)
[2021-07-25] MEDS: Aspirin 325 MG TABLET PO (08:21)
[2021-07-25] MEDS: methylPREDNISolone Sod Succ 125 MG/2 ML VIAL 80 MG IVPUSH ×2 (08:21→19:55)
[2021-07-25] MEDS: Insulin Glargine,Hum.rec.anlog 100 UNIT/ML 10 ML VIAL 25 UNIT SUBCUT (08:21)
[2021-07-25] MEDS: Cholecalciferol (Vitamin D3) 25 MCG TABLET 50 MCG PO (08:21)
[2021-07-25] MEDS: Zinc Sulfate 220 MG CAPSULE PO (08:21)
[2021-07-25] MEDS: Famotidine 20 MG TABLET 40 MG PO ×2 (08:22→19:57)
[2021-07-25] MEDS: acetaZOLAMIDE 250 MG TABLET 500 MG G-TUBE (08:22)
[2021-07-25] MEDS: clonazePAM 1 MG TABLET PO ×3 (08:22→19:56)
[2021-07-25] MEDS: Thiamine HCL 100 MG TABLET 200 MG PO ×2 (08:22→19:56)
--- NOTE | 2021-07-25 10:49 | MHC.CM.PN ---
Pt continues in ICU on vent support: plans for today include trialing vent weaning. Pt may not require a peg/trach if she is successful with wean. Pt will need f/u placement d/t extreme deconditioning. Initially referred to [facility] - clinical updated. Pt is eligible for insurance as of 08/08 through [employer] or through spouse's plan. Call placed to pt's spouse to remind him of time frame so he can add her. Pt will still have barriers to d/c including no COVID vax. CM to follow.
--- NOTE | 2021-07-25 11:26 | MHC.CLN ---
Addendum entered by Jayna Turner, KRISSY 07/25/21 11:27: F/U NSG REPORTED HIGH RESIDUALS OVER NIGHT BUT CURRENTLY TOLERATING TF PROMOTE AT 40ML/HR WITH FREE WATER FLUSHES 240ML Q 8HRS TO PROVIDES 960KCALS, 60G PROTEIN, 1525ML TOTAL WATER FROM FORMULA AND FLUSHES IF PT TOLERATES TF WITH LOW RESIDUALS, RECOMMEND PROMOTE AT MAX GOAL RATE 60ML/HR TO PROVIDE 1440KCALS, 90G PROTEIN (1.4G/KG), 1208CC WATER FROM FORMULA TF FORMULA APPROPRIATE TO PROMOTE WOUND HEALING MONITOR TOLERANCE, RESIDUALS AND LYTES Original Note: Pt continues in ICU on vent support: plans for today include trialing vent weaning.
[2021-07-25] MEDS: propofoL 1,000 MG/100 ML VIAL 11.41 MG IVCONT (11:51)
[2021-07-25 12:36] LABS: Glucose, Whole Blood 213 mg/dL (60-115)
[2021-07-25] MEDS: Midazolam HCl/PF 2 MG/2 ML VIAL IVPUSH (12:38)
--- NOTE | 2021-07-25 13:48 | PC.NURSE ---
Skin assessment completed today. Patient has a stage 2 pressure ulcer to bilateral buttocks. Triad applied and covered with foam. Scattered bruising to bilateral extremities. No other skin issues noted at this time.
--- NOTE | 2021-07-25 16:00 | P.PNCC_ITS ---
Subjective Subjective Date of Service: 07/25/21 Interval History: 41-year-old female with hypoxemic respiratory failure due to COVID-19 pneumonitis and ARDS ultimately after prolonged noninvasive positive- pressure ventilation did require intubation now with approximately 10 days but down to FiO2 of 40% with much clear chest x-ray and we made an attempt at sedation weaning but she was still encephalopathic and agitated so had to be recent dated but she did for at least 3/4 of an hour sustained pressure support volumes in the mid 400s Currently growing methicillin sensitive Staph aureus from the sputum and I will cover her with oral Augmentin Critical Care Time (minutes): 45 Physical Exam Vital Signs: Vital Signs: Last Vital Signs Temp 99.1 F 07/25/21 15:00 Pulse 106 H 07/25/21 15:00 Resp 30 H 07/25/21 15:00 BP 127/74 07/25/21 15:00 Pulse Ox 94 07/25/21 15:00 Body Mass Index 24.7 She did awaken as we reduced sedation but did not display cognitive function Moves all 4 extremities Cardiac exam with no neck vein distension and good bilateral carotid upstrokes Tolerating feedings And no organomegaly Chest with basic clarity and no adventitious sounds Skin is intact Objective Data Labs CBC & Chem 7: 07/25/21 06:00 07/25/21 07:25 Labs: Laboratory Results - last 24 hr 07/24/21 07/25/21 07/25/21 18:09 01:21 05:41 WBC RBC Hgb Hct MCV MCH MCHC RDW Plt Count MPV Immature Gran % (Auto) Neut % (Auto) Lymph % (Auto) [place] % (Auto) Eos % (Auto) Baso % (Auto) Lymph # (Auto) [place] # (Auto) Eos # (Auto) Baso # (Auto) Abs Immat Gran (auto) Absolute Neuts (auto) Absolute Nucleated RBC Nucleated RBC % (auto) D-Dimer VBG pH VBG pCO2 VBG pO2 VBG HCO3 VBG O2 Saturation VBG Base Excess Sodium Potassium Chloride Carbon Dioxide Anion Gap BUN Creatinine Estim Creat Clear Calc Estimated GFR POC Glucose 173 H 196 H 157 H Random Glucose Calcium Phosphorus Magnesium Lactate Dehydrogenase C-Reactive Protein Albumin 07/25/21 07/25/21 07/25/21 05:59 06:00 06:00 WBC 6.4 RBC 3.35 L Hgb 8.2 L Hct 27.3 L MCV 81.5 MCH 24.5 L MCHC 30.0 L RDW 18.4 H Plt Count 180 MPV 9.9 Immature Gran % (Auto) 0.5 H Neut % (Auto) 80.9 H Lymph % (Auto) 13.6 L [place] % (Auto) 4.1 Eos % (Auto) 0.9 Baso % (Auto) 0.0 Lymph # (Auto) 0.9 L [place] # (Auto) 0.3 Eos # (Auto) 0.1 Baso # (Auto) 0.0 Abs Immat Gran (auto) 0.03 Absolute Neuts (auto) 5.2 Absolute Nucleated RBC 0.000 Nucleated RBC % (auto) 0.0 D-Dimer 729 VBG pH 7.44 H VBG pCO2 45 VBG pO2 52 VBG HCO3 31 H VBG O2 Saturation 81.0 VBG Base Excess 6.8 Sodium Potassium Chloride Carbon Dioxide Anion Gap BUN Creatinine Estim Creat Clear Calc Estimated GFR POC Glucose Random Glucose Calcium Phosphorus Magnesium Lactate Dehydrogenase C-Reactive Protein Albumin 07/25/21 07/25/21 07:25 11:44 WBC RBC Hgb Hct MCV MCH MCHC RDW Plt Count MPV Immature Gran % (Auto) Neut % (Auto) Lymph % (Auto) [place] % (Auto) Eos % (Auto) Baso % (Auto) Lymph # (Auto) [place] # (Auto) Eos # (Auto) Baso # (Auto) Abs Immat Gran (auto) Absolute Neuts (auto) Absolute Nucleated RBC Nucleated RBC % (auto) D-Dimer VBG pH VBG pCO2 VBG pO2 VBG HCO3 VBG O2 Saturation VBG Base Excess Sodium 145 Potassium 3.7 Chloride 105 Carbon Dioxide 34 H Anion Gap 10 L BUN 21 H Creatinine 0.61 Estim Creat Clear Calc 108.0 Estimated GFR > 60 POC Glucose 213 H Random Glucose 145 H Calcium 9.4 Phosphorus 4.5 Magnesium 2.1 Lactate Dehydrogenase 303 H C-Reactive Protein 0.24 Albumin 3.9 D Microbiology Microbiology Results: Microbiology 07/17/21 09:48 Sputum - Suctioned Gram Stain - Final 07/17/21 09:48 Sputum - Suctioned Sputum Culture - Final Staphylococcus aureus 07/01/21 00:37 Blood - Venous Blood Culture - Final No growth after 5 days. 07/01/21 00:37 Blood - Venous Blood Culture - Final No growth after 5 days. 07/02/21 15:55 Urine clean catch - Urine ortiz top Urine Culture - Final Quality Stroke Does the patient have a stroke diagnosis?: No VTE Prior VTE?: No VTE Risk Level:: Medical - moderate - high VTE Device Contraindication: Treatment Not Indicated VTE Drug Contraindication: N/A - Med Ordered Progress Note: A&P Assessment and plan (1) Pneumomediastinum: Status: Acute (2) Anxiety: Status: Acute (3) Acute respiratory distress syndrome (ARDS) due to COVID-19 virus: Status: Acute (4) Acute respiratory failure with hypoxia: Status: Acute (5) Pneumonia due to COVID-19 virus: Status: Acute (6) COVID-19: Status: Acute (7) Breast mass: Status: Acute (8) Hypoxia: Status: Acute Assessment and Plan: A so she failed a trial of sedation weaning which we will attempt again tomorrow and in just in case we will cover her for the methicillin sensitive Staph aureus that is growing from the sputum even though there is no distinct infiltrate on chest x-ray
[2021-07-25 18:17] LABS: Glucose, Whole Blood 91 mg/dL (60-115)
--- NOTE | 2021-07-25 18:38 | PC.NURSE ---
AFEBRILE. VSS. HR SB-ST ON TELE. FENTANYL GTT TURNED OFF AT 0954 AND TURNED BACK ON AT 1302 AT 100 MCG/HR. WHILE FENTANYL GTT WAS OFF PATIENT WAS ANXIOUS, CRYING, THRASHING IN BED. PRN VERSED 2MG X 1 ADMINISTERED WITH SOME EFFECT. PROPOFOL INCREASED TO MAX RATE PER MD. BRIEFLY ON PC 20/10 AT 40%, CHANGED BACK TO ACVC+ 18/400/10/40%. LS CLEAR THROUGHOUT. BROOKS WNL. REMAINS ON TUBE FEEDS: PROMOTE AT 40 ML/HR, RESIDUALS 10-110. NO BM, RECTAL TUBE REMOVED AT 1200. Q2HR, BATHED, HAIR WASHED, FREQUENT ORAL CARE, PREVALON MATTRESS, WEDGES, PILLOWS AND HEELBOS UPDATED AND FACETIMED.
[2021-07-25] MEDS: fentaNYL citrate/NS 1,000 MCG/100 ML PLAST..BAG 10 MCG IVCONT (19:55)
[2021-07-25 20:15] LABS: Glucose, Whole Blood 70 mg/dL (60-115)
[2021-07-26] VITALS (31 sets, daily range): BP systolic 93–162; BP diastolic 51–102; PULSE 56–113; RESP 13–46; TEMP 36.3–37.5; O2SAT 88–100; BMI 24.5
[2021-07-26] MEDS: Ascorbic Acid 500 MG TABLET 1000 MG PO ×2 (00:01→05:29)
[2021-07-26] MEDS: Insulin Lispro 100 UNIT/ML 3 ML VIAL SUBCUT ×2 (00:12→05:29)
[2021-07-26] MEDS: propofoL 1,000 MG/100 ML VIAL 19.02 MG IVCONT ×2 (00:47→05:29)
[2021-07-26] MEDS: fentaNYL citrate/NS 1,000 MCG/100 ML PLAST..BAG 15 MCG IVCONT ×2 (00:48→08:34)
[2021-07-26] MEDS: dexmedeTOMIDidine HCL/NS 400 MCG/100 ML INFUS..BTL 9.05 MCG IVCONT (02:31)
[2021-07-26 05:27] LABS: MANUAL DIFF FLAG NO
[2021-07-26 05:29] LABS: VBG Base Excess 2.9 mmol/L; VBG HCO3 29 mmol/L (22-26); VBG pCO2 53 mmHg; VBG pH 7.34 (7.32-7.43); VBG pO2 48 mmHg
[2021-07-26 05:29] LABS: Basophils Percent Auto 0.2 % (0-2); Eosinophils Absolute Auto 0.1 X10*3/uL (0.0-0.4); Hematocrit 28.8 % (37-47); Hemoglobin 8.5 g/dl (12.0-16.0); Imm Gran Abs Auto 0.03 X10*3/uL (0.00-0.03); Imm Gran Pct Auto 0.5 % (0.0-0.4); Lymphocytes Absolute Auto 0.7 X10*3/uL (1.2-4.9); Lymphocytes Percent Auto 11.5 % (20-40); Mean Corpuscular HGB Conc 29.5 g/dl (31.0-35.0); Mean Corpuscular Hemoglobin 24.1 pg (27.0-33.0); Mean Corpuscular Volume 81.6 fL (80-98); Mean Platelet Volume 9.9 fL (9.4-12.3); Monocytes Absolute Auto 0.3 X10*3/uL (0.1-1.2); Monocytes Percent Auto 4.5 % (2-11); Neutrophils Absolute Auto 4.9 X10*3/uL (2.0-8.3); Neutrophils Percent Auto 82.3 % (45-73); Platelet Count 210 X10*3/uL (160-400); Red Blood Count 3.53 X10*6/uL (4.20-5.50); Red Cell Distribution Width 18.1 % (11.0-16.0)
[2021-07-26] MEDS: Chlorhexidine Gluc Oral Rinse 15 ML MOUTHWASH BUCCAL (05:29)
[2021-07-26 05:37] LABS: Venous Blood Gas Refer to POC result
[2021-07-26 05:47] LABS: Albumin Level 3.6 g/dL (3.5-5.0); Anion Gap 11 (12-20); Blood Urea Nitrogen 19 mg/dL (9-16); Calcium 9.2 mg/dL (8.4-10.2); Carbon Dioxide 28 mmol/L (22-29); Chloride 107 mmol/L (96-108); Creatinine Clr Calc Pharmacy 106.3; Estimated Glomerular Filt Rate > 60; Glucose Random 252 mg/dL (60-115); Phosphorus 4.5 mg/dL (2.7-4.5); Potassium 3.9 mmol/L (3.3-5.1); Sodium 142 mmol/L (135-145)
[2021-07-26 06:18] LABS: Glucose, Whole Blood 228 mg/dL (60-115)
[2021-07-26 06:18] LABS: Glucose, Whole Blood 212 mg/dL (60-115)
[2021-07-26] MEDS: Insulin Glargine,Hum.rec.anlog 100 UNIT/ML 10 ML VIAL 25 UNIT SUBCUT ×2 (08:33→19:54)
[2021-07-26] MEDS: methylPREDNISolone Sod Succ 125 MG/2 ML VIAL 80 MG IVPUSH (08:34)
[2021-07-26] MEDS: Zinc Sulfate 220 MG CAPSULE PO (08:34)
[2021-07-26] MEDS: Enoxaparin Sodium 40 MG/0.4 ML SYRINGE SUBCUT (08:34)
[2021-07-26] MEDS: Aspirin 325 MG TABLET PO (08:34)
[2021-07-26] MEDS: clonazePAM 1 MG TABLET PO (08:35)
[2021-07-26] MEDS: Thiamine HCL 100 MG TABLET 200 MG PO (08:35)
[2021-07-26] MEDS: Cholecalciferol (Vitamin D3) 25 MCG TABLET 50 MCG PO (08:35)
[2021-07-26] MEDS: 0.9 % Sodium Chloride Flush 3 ML SYRINGE IVFLUSH ×2 (08:35→19:55)
[2021-07-26] MEDS: Famotidine 20 MG TABLET 40 MG PO (08:44)
--- NOTE | 2021-07-26 09:57 | MHC.CLN ---
F/U CURRENTLY TOLERATING TF PROMOTE AT 50ML/HR WITH FREE WATER FLUSHES 240ML Q 8HRS TO PROVIDES 1200KCALS (1702KCALS WITH SEDATION), 75G PROTEIN, 1727ML TOTAL WATER FROM FORMULA AND FLUSHES IF PT TOLERATES TF WITH LOW RESIDUALS, RECOMMEND PROMOTE AT MAX GOAL RATE 60ML/HR TO PROVIDE 1440KCALS, 90G PROTEIN (1.4G/KG), 1208CC WATER FROM FORMULA TF FORMULA APPROPRIATE TO PROMOTE WOUND HEALING MONITOR TOLERANCE, RESIDUALS AND LYTES
[2021-07-26 11:40] LABS: Glucose, Whole Blood 152 mg/dL (60-115)
[2021-07-26] MEDS: dexmedeTOMIDidine HCL/NS 400 MCG/100 ML INFUS..BTL 18.1 MCG IVCONT ×2 (12:31→17:47)
[2021-07-26 14:00] LABS: VBG HCO3 26 mmol/L (22-26); VBG pCO2 39 mmHg; VBG pH 7.42 (7.32-7.43); VBG pO2 45 mmHg
--- NOTE | 2021-07-26 14:35 | PM.CCPN ---
Subjective Subjective Date of Service: 07/26/21 Interval History: 41-year-old female with hypoxemic respiratory failure from COVID-19 pneumonitis/ARDS down to an FiO2 of 35% and went quiet sleep minute ventilatory requirements just 6.5 liters/minute and we extubated following to our pressure support trial but she panics and hyperventilates immediately she triple her minute ventilation with slight overall improvement in her work of breathing on the maximum nasal high-flow at 60 liters/minute Venous blood gas was compensated so the altered behavior was not based on something metabolic she is such as pCO2 elevation and I might consider something like Zyprexa at the initial dose of maybe 5 mg and failing improvement after an IM injection repeat the 5 mg and simply needs repeat EKGs to monitor QT interval Critical Care Time (minutes): 45 Physical Exam Vital Signs: Vital Signs: Last Vital Signs Temp 99.1 F 07/26/21 12:00 Pulse 106 H 07/26/21 13:00 Resp 38 H 07/26/21 13:16 BP 114/53 L 07/26/21 13:00 Pulse Ox 94 07/26/21 13:00 Body Mass Index 24.5 With automotive parts interpreter she did follow commands Cardiac exam without neck vein distension and good bilateral carotid upstrokes Chest without adventitious sounds or accessory muscle use Abdomen benign soft no organomegaly Objective Data Labs CBC & Chem 7: 07/26/21 05:20 07/26/21 05:20 Labs: Laboratory Results - last 24 hr 07/25/21 07/25/21 07/26/21 18:12 20:03 00:10 WBC RBC Hgb Hct MCV MCH MCHC RDW Plt Count MPV Immature Gran % (Auto) Neut % (Auto) Lymph % (Auto) [place] % (Auto) Eos % (Auto) Baso % (Auto) Lymph # (Auto) [place] # (Auto) Eos # (Auto) Baso # (Auto) Abs Immat Gran (auto) Absolute Neuts (auto) Absolute Nucleated RBC Nucleated RBC % (auto) VBG pH VBG pCO2 VBG pO2 VBG HCO3 VBG O2 Saturation VBG Base Excess Sodium Potassium Chloride Carbon Dioxide Anion Gap BUN Creatinine Estim Creat Clear Calc Estimated GFR POC Glucose 91 70 212 H Random Glucose Calcium Phosphorus Magnesium Albumin 07/26/21 07/26/21 07/26/21 05:20 05:20 05:23 WBC 6.0 RBC 3.53 L Hgb 8.5 L Hct 28.8 L MCV 81.6 MCH 24.1 L MCHC 29.5 L RDW 18.1 H Plt Count 210 MPV 9.9 Immature Gran % (Auto) 0.5 H Neut % (Auto) 82.3 H Lymph % (Auto) 11.5 L [place] % (Auto) 4.5 Eos % (Auto) 1.0 Baso % (Auto) 0.2 Lymph # (Auto) 0.7 L [place] # (Auto) 0.3 Eos # (Auto) 0.1 Baso # (Auto) 0.0 Abs Immat Gran (auto) 0.03 Absolute Neuts (auto) 4.9 Absolute Nucleated RBC 0.000 Nucleated RBC % (auto) 0.0 VBG pH VBG pCO2 VBG pO2 VBG HCO3 VBG O2 Saturation VBG Base Excess Sodium 142 Potassium 3.9 Chloride 107 Carbon Dioxide 28 Anion Gap 11 L BUN 19 H Creatinine 0.62 Estim Creat Clear Calc 106.3 Estimated GFR > 60 POC Glucose 228 H Random Glucose 252 H Calcium 9.2 Phosphorus 4.5 Magnesium 2.0 Albumin 3.6 07/26/21 07/26/21 07/26/21 05:24 11:32 13:55 WBC RBC Hgb Hct MCV MCH MCHC RDW Plt Count MPV Immature Gran % (Auto) Neut % (Auto) Lymph % (Auto) [place] % (Auto) Eos % (Auto) Baso % (Auto) Lymph # (Auto) [place] # (Auto) Eos # (Auto) Baso # (Auto) Abs Immat Gran (auto) Absolute Neuts (auto) Absolute Nucleated RBC Nucleated RBC % (auto) VBG pH 7.34 7.42 VBG pCO2 53 39 VBG pO2 48 45 VBG HCO3 29 H 26 VBG O2 Saturation 71.0 71.0 VBG Base Excess 2.9 2.0 Sodium Potassium Chloride Carbon Dioxide Anion Gap BUN Creatinine Estim Creat Clear Calc Estimated GFR POC Glucose 152 H Random Glucose Calcium Phosphorus Magnesium Albumin Microbiology Microbiology Results: Microbiology 07/17/21 09:48 Sputum - Suctioned Gram Stain - Final 07/17/21 09:48 Sputum - Suctioned Sputum Culture - Final Staphylococcus aureus 07/01/21 00:37 Blood - Venous Blood Culture - Final No growth after 5 days. 07/01/21 00:37 Blood - Venous Blood Culture - Final No growth after 5 days. 07/02/21 15:55 Urine clean catch - Urine ortiz top Urine Culture - Final Quality Stroke Does the patient have a stroke diagnosis?: No VTE Prior VTE?: No VTE Risk Level:: Medical - moderate - high VTE Device Contraindication: Treatment Not Indicated VTE Drug Contraindication: N/A - Med Ordered Progress Note: A&P Assessment and plan (1) Pneumomediastinum: Status: Acute (2) Anxiety: Status: Acute (3) Acute respiratory distress syndrome (ARDS) due to COVID-19 virus: Status: Acute (4) Acute respiratory failure with hypoxia: Status: Acute (5) Pneumonia due to COVID-19 virus: Status: Acute (6) COVID-19: Status: Acute (7) Breast mass: Status: Acute (8) Hypoxia: Status: Acute Assessment and Plan: Will keep her on the nasal high-flow and just a low dose of fentanyl to prevent withdrawal a 25 micrograms/hour and continued use of the Klonopin or if IV dosing as necessary with switched to lorazepam at 0.5 mg q.6 hourly and were stable overnight consider swallow evaluation in the morning Potential backup a drug such as Zyprexa probably starting at 5 mg IM
[2021-07-26 15:24] LABS: Venous Blood Gas Refer to POC result
[2021-07-26] MEDS: OLANZapine 10 MG VIAL 5 MG IM ×2 (15:42→17:47)
--- NOTE | 2021-07-26 16:02 | PC.NURSE ---
Addendum entered by Rosy Coley RN 07/26/21 18:12: Patient restless. Administered second ordered dose of IM 5 mg Zyprexa, with good effect. Appear to be resting comfortably. Patient's Omar update and aware patient was extubated to HFNC but remains anxious and uncooperative with care at times. Also aware of medication changes. Agreeable to plan of care. Original Note: Sedation vacation from Propofol and Fentanyl started at 0845. Remained on Precedex per MD. Tube feed placed on hold. Around 0930 patient alert and able to follow commands with help from research environmental scientist. Able to move all extremities and neck. Able to cough on vent. Placed on PS 18/8 and 35% fio2 by RT. Tolerated well. At 1045 vent settings changed to PS 10/5 and 35% fio2, tolerated well with plan to extubate. Around 11:30 order to extubate. Patient extubated to HFNC 60 L / 80% fi02 with O2 sats trending in the low 90s. Remained on Precedex drip. Fentanyl drip restarted at 25 mcg/hr, decreased from 150. Around 1345 patient became restless and agitated trashing around in bed. Patient pulled off HFNC and de-saturated into the low 70s. This RN at bedside, patient extremely restless. Reapplied HFNC and increased to 60L / 100% fio2 until O2 sats increased to low 90s. Unable to settle patient. MD at bedside. VBGs ordered: 7.42/39/45/26 on 60L 100% fio2. Patient repositioned and changed. Electrical Equipment Assembler at bedside to help calm patient and assess orientation. Patient oriented, able to follow simple commands but very anxious. Telesitter camera remained at bedside for safety with bed alarms in place. Restraint adjusted for patient safety as patient continued to reach for cannula and appeared to be attempting to get out of bed. HF titrated down to 50 L /80% and O2 sats mid 90s. At 1545 patient again very restless and agitated attempting to pull at HFNC. Meds reviewed with MD. Ordered for one time dose of IM Zyprexa given with good effect. Decreased restlessness noted and patient appeared comfortable. Safety measures and camera remain in place. Will continue to monitor. 1
[2021-07-26] MEDS: Doxycycline Hyclate 100 MG in 0.9 % Sodium Chloride 250 ML 166.67 MG IV (17:48)
[2021-07-26 18:09] LABS: Glucose, Whole Blood 116 mg/dL (60-115)
[2021-07-26] MEDS: Famotidine/PF 20 MG/2 ML VIAL IVPUSH (19:55)
[2021-07-26] MEDS: dexmedeTOMIDidine HCL/NS 400 MCG/100 ML INFUS..BTL 27.15 MCG IVCONT (22:45)
[2021-07-26] MEDS: fentaNYL citrate/NS 1,000 MCG/100 ML PLAST..BAG 2.5 MCG IVCONT (23:25)
[2021-07-26 23:51] LABS: Glucose, Whole Blood 58 mg/dL (60-115)
[2021-07-27] VITALS (29 sets, daily range): BP systolic 108–164; BP diastolic 67–116; PULSE 49–97; RESP 19–45; TEMP 36.3–38.1; O2SAT 89–100; BMI 23.4
[2021-07-27 00:15] LABS: Glucose, Whole Blood 205 mg/dL (60-115)
[2021-07-27] MEDS: dexmedeTOMIDidine HCL/NS 400 MCG/100 ML INFUS..BTL 27.15 MCG IVCONT ×7 (02:25→23:56)
[2021-07-27 05:20] LABS: VBG Base Excess 5.3 mmol/L; VBG HCO3 29 mmol/L (22-26); VBG pCO2 39 mmHg; VBG pH 7.47 (7.32-7.43); VBG pO2 41 mmHg
[2021-07-27 05:28] LABS: Glucose, Whole Blood 70 mg/dL (60-115)
[2021-07-27] MEDS: Doxycycline Hyclate 100 MG in 0.9 % Sodium Chloride 250 ML 166.67 MG IV ×2 (05:29→18:06)
[2021-07-27] MEDS: dexmedeTOMIDidine HCL/NS 400 MCG/100 ML INFUS..BTL 23.53 MCG IVCONT (05:30)
[2021-07-27 05:37] LABS: MANUAL DIFF FLAG NO
[2021-07-27 05:41] LABS: Basophils Percent Auto 0.1 % (0-2); Eosinophils Absolute Auto 0.7 X10*3/uL (0.0-0.4); Eosinophils Percent Auto 10.6 % (0-4); Imm Gran Abs Auto 0.02 X10*3/uL (0.00-0.03); Imm Gran Pct Auto 0.3 % (0.0-0.4); Lymphocytes Absolute Auto 1.6 X10*3/uL (1.2-4.9); Lymphocytes Percent Auto 23.4 % (20-40); Mean Corpuscular Hemoglobin 24.7 pg (27.0-33.0); Mean Corpuscular Volume 79.7 fL (80-98); Mean Platelet Volume 9.5 fL (9.4-12.3); Monocytes Absolute Auto 0.4 X10*3/uL (0.1-1.2); Monocytes Percent Auto 5.6 % (2-11); Neutrophils Absolute Auto 4.2 X10*3/uL (2.0-8.3); Platelet Count 206 X10*3/uL (160-400); Red Blood Count 3.64 X10*6/uL (4.20-5.50); Red Cell Distribution Width 17.9 % (11.0-16.0)
[2021-07-27 06:07] LABS: Albumin Level 3.6 g/dL (3.5-5.0); Anion Gap 11 (12-20); Blood Urea Nitrogen 14 mg/dL (9-16); Calcium 9.4 mg/dL (8.4-10.2); Carbon Dioxide 29 mmol/L (22-29); Chloride 110 mmol/L (96-108); Creatinine Clr Calc Pharmacy 117.7; Estimated Glomerular Filt Rate > 60; Glucose Random 68 mg/dL (60-115); Magnesium 1.8 mg/dL (1.6-2.6); Phosphorus 3.5 mg/dL (2.7-4.5); Sodium 147 mmol/L (135-145)
--- NOTE | 2021-07-27 06:38 | PC.NURSE ---
Addendum entered by Virgil Marie RN 07/27/21 07:06: Patient tolerated secretions through night - frequ mouth care done. Unable to do swallow eval r/t mental status still lethargic or extremely anxious. Original Note: Patient tolerated high flow - 80%, 50L. Periods of anxiety w/ tachypnea, but managed to calm down w/ emotional support and titration of presedex & low dose cont fent drip. Patient becoming more oriented / communicating in turkmen, voice very hoarse. Unable to wean oxygen through night. Trial release restraints - patient cooperating w/ care. Patient NPO, discussed evening lantus w/ Irma GLOVER, ordered to give scheduled lantus last night - midnight POC 58, Irma GLOVER made aware - changed lantus to one time a day, then ordered amp dextrose - given @ 2350. 6am POC 70 - still NPO - no symptoms noted of hypoglycemia - Irma GLOVER made aware - another amp dextrose given @ 0523.
[2021-07-27 06:54] LABS: Venous Blood Gas Refer to POC result
[2021-07-27] MEDS: Potassium Chloride/H20 20 MEQ/100 ML PIGGYBACK 100 MEQ IV ×2 (08:02→09:16)
[2021-07-27] MEDS: KCl 20 mEq in 5% Dex/0.45% Sod 20 MEQ/1,000 ML IV.SOLN 42 MEQ IVCONT (08:03)
[2021-07-27] MEDS: Enoxaparin Sodium 40 MG/0.4 ML SYRINGE SUBCUT (08:03)
[2021-07-27] MEDS: methylPREDNISolone Sod Succ 40 MG/ML VIAL 20 MG IVPUSH (08:03)
[2021-07-27] MEDS: OLANZapine 10 MG VIAL 5 MG IM ×2 (08:20→19:34)
[2021-07-27] MEDS: 0.9 % Sodium Chloride Flush 3 ML SYRINGE IVFLUSH ×2 (08:56→15:44)
[2021-07-27] MEDS: Famotidine/PF 20 MG/2 ML VIAL IVPUSH ×2 (09:00→22:16)
[2021-07-27] MEDS: methylPREDNISolone Sod Succ 40 MG/ML VIAL IVPUSH (09:00)
--- NOTE | 2021-07-27 10:12 | MHC.CLN ---
F/U PT EXTUBATED AND CURRENTLY REMAINS NPO FAILED NURSING SWALLOW EVAL POSSIBLE PROMOTIONS TEAM LEADER EVAL WHEN ABLE FOLLOWING
--- NOTE | 2021-07-27 10:25 | MHC.SLORD ---
Addendum entered and electronically signed by Annette Martin MA, CCC-ASSOCIATE BUYER 07/27/21 10:51: Addendum: Updated with RN and re: pt's inability to participate in the bedside swallow evaluation. Pt has TF at 50 mL/hr and will continue NPO. ASSOCIATE BUYER will continue to follow pt. Original Note: Speech Language Pathology Order Status: Order received and chart reviewed. Updated with RN prior to attempting to see pt in her isolation room in ICU, as pt is COVID-19+. Pt was successfully extubated 07/26. RN reported that she attempted the nursing dysphagia screen this morning, but pt was unable to cooperate with the screen due to heightened anxiety. RN reported that pt has since received anxiety medications this morning. Pt was in restraints in order to keep HFNC on, as per RN, pt removes it, which results in increased anxiety. Despite encouragement and education provided in [place], pt declined to participate in the bedside swallow evaluation attempted this date. Pt demonstrated a very weak, hoarse vocal quality that was aphonic at times. ASSOCIATE BUYER will continue to follow pt throughout her hospitalization.
[2021-07-27 11:51] LABS: Glucose, Whole Blood 111 mg/dL (60-115)
--- NOTE | 2021-07-27 16:20 | P.PNCC_ITS ---
Subjective Subjective Date of Service: 07/27/21 Interval History: 41-year-old female who has been extubated now for 2 days and had had presented with bilateral COVID-19 pneumonitis and ARDS and is doing very well from a respiratory standpoint she only unraveled to a degree when she gets very excited and she has been of very clear-cut panic attacks that did respond to a total of 10 mg of Zyprexa yesterday which we continue the no to use on a p.r.n. basis but she has good cognitive function she has complete resolution of encephalopathy and metabolically just had some mild hypokalemia at 3.0 and mild hypernatremia at 1:47 a.m. but she responds to a Israeli-speaking person most particularly her who just it gives her support and hand holding etc. she states calm her oxygen saturations are literally 100% nonetheless she still on nasal high-flow which gives her comfort in her breathing without necessity for accessory muscle use without adventitious sounds the Critical Care Time (minutes): 45 Physical Exam Vital Signs: Vital Signs: Last Vital Signs Temp 99.9 F 07/27/21 16:00 Pulse 59 07/27/21 16:00 Resp 22 H 07/27/21 16:09 BP 129/75 07/27/21 16:00 Pulse Ox 100 07/27/21 16:00 Body Mass Index 23.4 Good cognitive function and nonfocal neurologically Cardiac exam with good bilateral carotid upstrokes no neck vein distension Chest with scattered bilateral rales but no accessory muscle use nor diaphragmatic effort and no wheeze Abdomen benign no organomegaly Skin is intact Objective Data Labs CBC & Chem 7: 07/27/21 05:07 07/27/21 05:07 Labs: Laboratory Results - last 24 hr 07/26/21 07/26/21 07/27/21 17:48 23:40 00:11 WBC RBC Hgb Hct MCV MCH MCHC RDW Plt Count MPV Immature Gran % (Auto) Neut % (Auto) Lymph % (Auto) [place] % (Auto) Eos % (Auto) Baso % (Auto) Lymph # (Auto) [place] # (Auto) Eos # (Auto) Baso # (Auto) Abs Immat Gran (auto) Absolute Neuts (auto) Absolute Nucleated RBC Nucleated RBC % (auto) VBG pH VBG pCO2 VBG pO2 VBG HCO3 VBG O2 Saturation VBG Base Excess Sodium Potassium Chloride Carbon Dioxide Anion Gap BUN Creatinine Estim Creat Clear Calc Estimated GFR POC Glucose 116 H 58 L* 205 H Random Glucose Calcium Phosphorus Magnesium Albumin 07/27/21 07/27/21 07/27/21 05:07 05:07 05:15 WBC 7.0 RBC 3.64 L Hgb 9.0 L Hct 29.0 L MCV 79.7 L MCH 24.7 L MCHC 31.0 RDW 17.9 H Plt Count 206 MPV 9.5 Immature Gran % (Auto) 0.3 Neut % (Auto) 60.0 Lymph % (Auto) 23.4 [place] % (Auto) 5.6 Eos % (Auto) 10.6 H Baso % (Auto) 0.1 Lymph # (Auto) 1.6 [place] # (Auto) 0.4 Eos # (Auto) 0.7 H Baso # (Auto) 0.0 Abs Immat Gran (auto) 0.02 Absolute Neuts (auto) 4.2 Absolute Nucleated RBC 0.000 Nucleated RBC % (auto) 0.0 VBG pH 7.47 H VBG pCO2 39 VBG pO2 41 VBG HCO3 29 H VBG O2 Saturation 68.0 VBG Base Excess 5.3 Sodium 147 H Potassium 3.0 L D Chloride 110 H Carbon Dioxide 29 Anion Gap 11 L BUN 14 Creatinine 0.56 Estim Creat Clear Calc 117.7 Estimated GFR > 60 POC Glucose Random Glucose 68 Calcium 9.4 Phosphorus 3.5 Magnesium 1.8 Albumin 3.6 07/27/21 07/27/21 05:23 11:47 WBC RBC Hgb Hct MCV MCH MCHC RDW Plt Count MPV Immature Gran % (Auto) Neut % (Auto) Lymph % (Auto) [place] % (Auto) Eos % (Auto) Baso % (Auto) Lymph # (Auto) [place] # (Auto) Eos # (Auto) Baso # (Auto) Abs Immat Gran (auto) Absolute Neuts (auto) Absolute Nucleated RBC Nucleated RBC % (auto) VBG pH VBG pCO2 VBG pO2 VBG HCO3 VBG O2 Saturation VBG Base Excess Sodium Potassium Chloride Carbon Dioxide Anion Gap BUN Creatinine Estim Creat Clear Calc Estimated GFR POC Glucose 70 111 Random Glucose Calcium Phosphorus Magnesium Albumin Microbiology Microbiology Results: Microbiology 07/17/21 09:48 Sputum - Suctioned Gram Stain - Final 07/17/21 09:48 Sputum - Suctioned Sputum Culture - Final Staphylococcus aureus 07/01/21 00:37 Blood - Venous Blood Culture - Final No growth after 5 days. 07/01/21 00:37 Blood - Venous Blood Culture - Final No growth after 5 days. 07/02/21 15:55 Urine clean catch - Urine ortiz top Urine Culture - Final Quality Stroke Does the patient have a stroke diagnosis?: No VTE Prior VTE?: No VTE Risk Level:: Medical - moderate - high VTE Device Contraindication: Treatment Not Indicated VTE Drug Contraindication: N/A - Med Ordered Progress Note: A&P Assessment and plan (1) Pneumomediastinum: Status: Acute (2) Anxiety: Status: Acute (3) Acute respiratory distress syndrome (ARDS) due to COVID-19 virus: Status: Acute (4) Acute respiratory failure with hypoxia: Status: Acute (5) Pneumonia due to COVID-19 virus: Status: Acute (6) COVID-19: Status: Acute (7) Breast mass: Status: Acute (8) Hypoxia: Status: Acute (9) Hypokalemia: Status: Acute (10) Hypernatremia: Status: Acute (11) Panic attack as reaction to stress: Status: Acute Assessment and Plan: So with a support from nor any Israeli translating individual willing to spend time she maintains a decent demeanor but the most especially because of her panic attacks and she does respond to Zyprexa and there was a questionable early ventilator associated infection with methicillin sensitive Staph and she is on doxycycline and doing well with that and still is on nasal high-flow which probably can be slowly weaned and she is at the point now where she is probably ready for physical therapy and a swallow evaluation
[2021-07-27 18:06] LABS: Glucose, Whole Blood 127 mg/dL (60-115)
--- NOTE | 2021-07-27 18:30 | PC.NURSE ---
TMAX 100.2. VSS. SB/SR/ST ON TELE. REMAINS ON FENTANYL AND PRECEDEX GTT. SEE EMAR. PRN ZYPREXA X 1 ADMINISTERED WITH SOME EFFECT. PATIENT MAINLY ALERT TO SELF ONLY, POLYSOMNOGRAPHIC TECHNOLOGIST USED. REMAINS NPO. REFUSING TO OPEN MOUTH FOR RN AND S&H FOR SWALLOW EVAL. REMAINS ON HIGH FLOW. BROOKS WNL. SPOTTING/MENSTRATION NOTED - ANGELA PAD IN PLACE. NO BM THIS SHIFT. RESTRAINTS AND TELESITTER IN PLACE FOR AIRWAY SAFETY, REACHES AND PULLS OFF 02. Q2HR REPO, BATHED, BARRIER CREAM AND NEW PINK FOAMS APPLIED TO BUTTOCK, PREVALON MATTRESS, PILLOWS, WEDGES, HEELBOS. ALLOWED TO VISIT BEDSIDE. UPDATED THROUGHOUT THE DAY BY THIS RN.
[2021-07-27] MEDS: Insulin Glargine,Hum.rec.anlog 100 UNIT/ML 10 ML VIAL 25 UNIT SUBCUT (22:17)
[2021-07-27] MEDS: fentaNYL citrate/NS 1,000 MCG/100 ML PLAST..BAG 2.5 MCG IVCONT (22:18)
[2021-07-27 23:56] LABS: Glucose, Whole Blood 123 mg/dL (60-115)
[2021-07-28] VITALS (24 sets, daily range): BP systolic 101–185; BP diastolic 59–97; PULSE 61–137; RESP 19–42; TEMP 36.4–37.7; O2SAT 81–100; BMI 23.4
[2021-07-28] MEDS: 0.9 % Sodium Chloride Flush 3 ML SYRINGE IVFLUSH ×4 (00:24→21:39)
[2021-07-28] MEDS: dexmedeTOMIDidine HCL/NS 400 MCG/100 ML INFUS..BTL 18.1 MCG IVCONT (04:53)
[2021-07-28] MEDS: Doxycycline Hyclate 100 MG in 0.9 % Sodium Chloride 250 ML 166.67 MG IV ×2 (05:28→18:30)
[2021-07-28 05:29] LABS: VBG Base Excess 4.4 mmol/L; VBG HCO3 28 mmol/L (22-26); VBG pCO2 37 mmHg; VBG pH 7.47 (7.32-7.43); VBG pO2 44 mmHg
[2021-07-28] MEDS: KCl 20 mEq in 5% Dex/0.45% Sod 20 MEQ/1,000 ML IV.SOLN 42 MEQ IVCONT (05:29)
[2021-07-28 05:37] LABS: MANUAL DIFF FLAG NO
[2021-07-28 05:41] LABS: Venous Blood Gas Refer to POC result
[2021-07-28 05:42] LABS: Glucose, Whole Blood 94 mg/dL (60-115)
[2021-07-28 05:42] LABS: Basophils Percent Auto 0.3 % (0-2); Eosinophils Absolute Auto 0.9 X10*3/uL (0.0-0.4); Eosinophils Percent Auto 12.5 % (0-4); Hematocrit 29.3 % (37-47); Hemoglobin 9.1 g/dl (12.0-16.0); Imm Gran Abs Auto 0.02 X10*3/uL (0.00-0.03); Imm Gran Pct Auto 0.3 % (0.0-0.4); Lymphocytes Absolute Auto 1.5 X10*3/uL (1.2-4.9); Lymphocytes Percent Auto 21.3 % (20-40); Mean Corpuscular HGB Conc 31.1 g/dl (31.0-35.0); Mean Corpuscular Hemoglobin 24.9 pg (27.0-33.0); Mean Corpuscular Volume 80.1 fL (80-98); Mean Platelet Volume 9.9 fL (9.4-12.3); Monocytes Absolute Auto 0.5 X10*3/uL (0.1-1.2); Monocytes Percent Auto 6.3 % (2-11); Neutrophils Absolute Auto 4.2 X10*3/uL (2.0-8.3); Neutrophils Percent Auto 59.3 % (45-73); Platelet Count 214 X10*3/uL (160-400); Red Blood Count 3.66 X10*6/uL (4.20-5.50); Red Cell Distribution Width 17.7 % (11.0-16.0); White Blood Count 7.1 X10*3/uL (4.8-10.8)
[2021-07-28 06:19] LABS: Albumin Level 3.4 g/dL (3.5-5.0); Anion Gap 9 (12-20); Blood Urea Nitrogen 12 mg/dL (9-16); Calcium 9.2 mg/dL (8.4-10.2); Carbon Dioxide 28 mmol/L (22-29); Chloride 111 mmol/L (96-108); Creatinine Clr Calc Pharmacy 122.1; Estimated Glomerular Filt Rate > 60; Glucose Random 99 mg/dL (60-115); Magnesium 1.7 mg/dL (1.6-2.6); Phosphorus 3.1 mg/dL (2.7-4.5); Potassium 3.2 mmol/L (3.3-5.1); Sodium 145 mmol/L (135-145)
--- NOTE | 2021-07-28 07:04 | P.PNCC_ITS ---
Subjective Subjective Date of Service: 07/28/21 Interval History: 41-year-old female who has been hospitalized for nearly a month with COVID-19 pneumonitis and ARDS in and on vaccinated state and had been intubated for 11 days had progressive clearing of her chest x-ray last week along with reduction in minute ventilation requirements and FiO2 and she was successfully weaned from the ventilator now on nasal high-flow which is now slowly being weaned and doing very well She has significant behavioral issues which were not delirium but the she does have a long history of panic attacks/anxiety it and she would get so worked up issue of become very tachypneic and and tachycardic and and as a result primary developed some air trapping with the drops in her oxygen saturation and then as soon as she was able to come down either with combination of Zyprexa and dexmedetomidine or just from having this security of the 's presence or any fourdrinier machine tender who was willing to sit with her and assure her then her respiratory rate would drop below 20 oxygen saturations were 98% to 100 respiratory effort gone No other complications related to this disease entity other than potentially a ventilator associated infection with methicillin sensitive Staph aureus for which she is being treated and today ready to start physical therapy and have a formal swallow evaluation Minor electrolyte issues with today's potassium 3.2 yesterday 3.0 and she was noted to be hyperglycemic and currently on short and long-acting subcu insulin and hopefully begin a diet today Critical Care Time (minutes): 40 Physical Exam Vital Signs: Vital Signs: Last Vital Signs Temp 99 F 07/28/21 06:00 Pulse 69 07/28/21 06:00 Resp 22 H 07/28/21 06:00 BP 122/73 07/28/21 06:00 Pulse Ox 95 07/28/21 06:00 Body Mass Index 23.4 Awakens easily and oriented and nonfocal neurologically Cardiac exam normal with good bilateral carotid upstrokes no neck vein distension Lungs without adventitious sounds Abdomen soft with good bowel sounds and no organomegaly Skin intact Objective Data Labs CBC & Chem 7: 07/28/21 05:22 07/28/21 05:22 Labs: Laboratory Results - last 24 hr 07/27/21 07/27/21 07/27/21 11:47 18:02 23:52 WBC RBC Hgb Hct MCV MCH MCHC RDW Plt Count MPV Immature Gran % (Auto) Neut % (Auto) Lymph % (Auto) [place] % (Auto) Eos % (Auto) Baso % (Auto) Lymph # (Auto) [place] # (Auto) Eos # (Auto) Baso # (Auto) Abs Immat Gran (auto) Absolute Neuts (auto) Absolute Nucleated RBC Nucleated RBC % (auto) VBG pH VBG pCO2 VBG pO2 VBG HCO3 VBG O2 Saturation VBG Base Excess Sodium Potassium Chloride Carbon Dioxide Anion Gap BUN Creatinine Estim Creat Clear Calc Estimated GFR POC Glucose 111 127 H 123 H Random Glucose Calcium Phosphorus Magnesium Albumin 07/28/21 07/28/21 07/28/21 05:22 05:22 05:23 WBC 7.1 RBC 3.66 L Hgb 9.1 L Hct 29.3 L MCV 80.1 MCH 24.9 L MCHC 31.1 RDW 17.7 H Plt Count 214 MPV 9.9 Immature Gran % (Auto) 0.3 Neut % (Auto) 59.3 Lymph % (Auto) 21.3 [place] % (Auto) 6.3 Eos % (Auto) 12.5 H Baso % (Auto) 0.3 Lymph # (Auto) 1.5 [place] # (Auto) 0.5 Eos # (Auto) 0.9 H Baso # (Auto) 0.0 Abs Immat Gran (auto) 0.02 Absolute Neuts (auto) 4.2 Absolute Nucleated RBC 0.000 Nucleated RBC % (auto) 0.0 VBG pH 7.47 H VBG pCO2 37 VBG pO2 44 VBG HCO3 28 H VBG O2 Saturation 71.0 VBG Base Excess 4.4 Sodium 145 Potassium 3.2 L Chloride 111 H Carbon Dioxide 28 Anion Gap 9 L BUN 12 Creatinine 0.54 Estim Creat Clear Calc 122.1 Estimated GFR > 60 POC Glucose Random Glucose 99 Calcium 9.2 Phosphorus 3.1 Magnesium 1.7 Albumin 3.4 L 07/28/21 05:33 WBC RBC Hgb Hct MCV MCH MCHC RDW Plt Count MPV Immature Gran % (Auto) Neut % (Auto) Lymph % (Auto) [place] % (Auto) Eos % (Auto) Baso % (Auto) Lymph # (Auto) [place] # (Auto) Eos # (Auto) Baso # (Auto) Abs Immat Gran (auto) Absolute Neuts (auto) Absolute Nucleated RBC Nucleated RBC % (auto) VBG pH VBG pCO2 VBG pO2 VBG HCO3 VBG O2 Saturation VBG Base Excess Sodium Potassium Chloride Carbon Dioxide Anion Gap BUN Creatinine Estim Creat Clear Calc Estimated GFR POC Glucose 94 Random Glucose Calcium Phosphorus Magnesium Albumin Microbiology Microbiology Results: Microbiology 07/17/21 09:48 Sputum - Suctioned Gram Stain - Final 07/17/21 09:48 Sputum - Suctioned Sputum Culture - Final Staphylococcus aureus 07/01/21 00:37 Blood - Venous Blood Culture - Final No growth after 5 days. 07/01/21 00:37 Blood - Venous Blood Culture - Final No growth after 5 days. 07/02/21 15:55 Urine clean catch - Urine ortiz top Urine Culture - Final Quality Stroke Does the patient have a stroke diagnosis?: No VTE Prior VTE?: No VTE Risk Level:: Medical - moderate - high VTE Device Contraindication: Treatment Not Indicated VTE Drug Contraindication: N/A - Med Ordered Progress Note: A&P Assessment and plan (1) Panic attack as reaction to stress: Status: Acute (2) Hypernatremia: Status: Acute (3) Hypokalemia: Status: Acute (4) Pneumomediastinum: Status: Acute (5) Anxiety: Status: Acute (6) Acute respiratory distress syndrome (ARDS) due to COVID-19 virus: Status: Acute (7) Acute respiratory failure with hypoxia: Status: Acute (8) Pneumonia due to COVID-19 virus: Status: Acute (9) COVID-19: Status: Acute (10) Breast mass: Status: Acute (11) Hypoxia: Status: Acute Assessment and Plan: Doing very well medically and with good behavioral control we are going to wean the last of her dexmedetomidine and hopefully the will appear shortly who has tremendous calming influence on her get her to cooperate with therapy and her swallow eval and begin a diet
[2021-07-28] MEDS: Potassium Chloride/H20 20 MEQ/100 ML PIGGYBACK 100 MEQ IV ×2 (07:33→08:27)
[2021-07-28] MEDS: fentaNYL 12 MCG PATCH.TD72 TRANSDERMA (07:34)
[2021-07-28] MEDS: Enoxaparin Sodium 40 MG/0.4 ML SYRINGE SUBCUT (08:27)
[2021-07-28] MEDS: predniSONE 20 MG TABLET PO (08:27)
[2021-07-28] MEDS: Thiamine HCL 100 MG TABLET 200 MG PO ×2 (08:27→21:38)
[2021-07-28] MEDS: Cholecalciferol (Vitamin D3) 25 MCG TABLET 50 MCG PO (08:27)
[2021-07-28] MEDS: Famotidine/PF 20 MG/2 ML VIAL IVPUSH ×2 (08:27→21:38)
[2021-07-28] MEDS: Aspirin 325 MG TABLET PO (08:27)
[2021-07-28] MEDS: OLANZapine 10 MG VIAL 5 MG IM ×2 (08:28→19:52)
--- NOTE | 2021-07-28 09:35 | MHC.CM.PN ---
Pt has made great clinical progress - extubated and doing well on high flow: anxiety is better managed and pt is starting to increase oral intake. Pt may be able to transfer [place] [facility] [place] per MD. Pt had been referred to [facility] prior to extubation. Updates sent, however, pt may no longer qualify for placement. Pt has barriers to services: mainly a lack of payor. She cancelled her connector plan this summer and only has HSN. Her spouse can add her on his policy 08/08 but her start date will be 10/08/21. [facility] [place] has seen pt prior to her intubation. Fax request sent again to inquire on pts ability to qualify for a connector plan on 08/08 during open enrollment. CM to follow for d/c needs. At this time, pt does not qualify for SNF or VNA d/t lack of payor source.
--- NOTE | 2021-07-28 09:35 | PC.RT ---
pt very agitaed and restless, pulling at everything. increased wob. increased 02 to 100%. pt full of stool. will continue to wean back after pt clams down. pt to go to [facility] today.
[2021-07-28] MEDS: Midazolam HCl/PF 2 MG/2 ML VIAL IVPUSH (09:47)
--- NOTE | 2021-07-28 11:13 | P.CDIC_ITS ---
CDI Concurrent Query Documentation Clarification: PHYSICIAN'S DOCUMENTATION REQUEST Date of Query: 07/28/21 1114 Patient Name: Dominique Astudillo Admit Date: 07/01/21 Dear Doctor, A review of the medical record indicates additional documentation may be needed. Please review below and update the documentation accordingly. Clinical Indicators: Risk Factors/Clinical Indicators/Treatments ICU 07/25 - patient was still encephalopathic and agitated, altered behavior. ICU 07/27 - complete resolution of encephalopathy and metabolically. Based on the above, please further specify, in the Progress Notes, the known or suspected type of the documented encephalopathy: * Metabolic * Toxic * Toxic metabolic * Hypertensive * Due to a specified condition (such as UTI, hyponatremia, CVA, etc.) * Other (please specify) * Unable to determine Use of terms such as suspected, likely, concern for, or probable (associated with a specific diagnosis that is being evaluated, monitored, or treated as if it exists) are acceptable and can be coded in the inpatient setting, when documented at the time of discharge. Thank you, Doris Denny [facility], CDIS Extension: [phone] Please use your independent medical judgment in providing your response. THIS QUERY IS PART OF THE PERMANENT MEDICAL RECORD Provider Response: Encephalopathy Other Diagnosis: I would label the encephalopathy a toxic encephalopathy more than likely related to her sedation
--- NOTE | 2021-07-28 11:23 | MHC.CM.PN ---
Message from [facility] financial re: re-evaluation of pt's lack of payor received on 07/28 at 11:07 Gab Oliva. I rcvd your fax for Cheryl Astudillo. Based on the income information the spouse provided, they are over income for any changes. Even if I remove Dominique's income because she's been here. HSN is not available for her. I'm waiting for a copy of a current pay stub from her spouse just to double check the numbers and see if there is anything else that could be done... but if the amount he provided is accurate based on the current stub, there is nothing else we can do. She was enrolled in a Connector and they decided to let it lapse on 02/2021, because they found it to be too expensive. If with the current stub, they are still over income, they would have to wait for Open Enrollment on 08/08/2021 to enroll in a new plan for October 2021 coverage.11:07 AM30 days left
[2021-07-28 12:03] LABS: Glucose, Whole Blood 140 mg/dL (60-115)
--- NOTE | 2021-07-28 12:16 | MHC.SL.SWA ---
Speech Pathologist Impression: Risk of Aspiration Oralpharyngeal Dysphagia Risk of Aspiration Due to: History of Pneumonia Hx of Recent Extubation Weak Voice Dysphasia Diet Status: Upgrade Patient was seen by a bilingual speech-language pathologist who speaks Nepali. Patient had her on video-call. Patient accepted PO trials this date. Patient reached for utensils, but at times missed her mouth, spilled food/drink, and dropped utensils. She was encouraged to feed herself, but was provided with some assistance when needed. Upon palpation, note incomplete laryngeal elevation. Patient was presented with full bite of applesauce, but only took trace amount or up to 1/3 teaspoon amount. Note 1-2 swallows per bite. No overt s/s of aspiration. Good oral clearance. Patient was given small bite of emil cracker dipped in applesauce. Note anterior chewing pattern and anterior loss of bolus as patient chewed. Eventually patient pushed bolus and would not accept subsequent offerings of solid food despite encouragement and education. Patient was given teaspoon sip of water, resulting in anterior loss of 90% of bolus and delayed wet cough. Patient was given another teaspoon sip, but completely spit it out and grimaced. Patient accepted teaspoon sips of nectar thick juice and swallowed with no overt s/s of aspiration and reduced anterior bolus loss. Patient tolerated nectar thick liquid by cup with no overt s/s of aspiration. Liquid Consistency and Strategies for Safe Swallow: Liquid Intake Recommendation: [place] Thick Liquid Intake Strategies: Small Sips No Straws Solid Food Consistency: Dietary Recommendations: Pureed (NDD1) Additional Modifications to Solid Foods: Recommend PUREED (NDD1) solids and NECTAR THICK liquids (no straws) with pills CRUSHED in PUREE. Recommend 1:1 total supervision and assistance as needed during PO intake. Aspiration precautions apply. KENO MANAGER will follow up tomorrow morning to assess tolerance and potential for upgrade. Message sent to , RN, RD. Oral Medication Intake: Crushed with Puree Compensatory Strategies and Precautions to be Taken for Safe Swallow: Sitting Upright (90 deg) No Straw Small Bites and Sips Rate of Ingestion Change Oral Check Supervision While Eating and Drinking for Safe Swallow: Total Assistance Swallowing Recommended Treatments: Compens. Strategy Educat. Recommendation for Speech: Inpatient Speech Therapy Comment: Recommend PUREED (NDD1) solids and NECTAR THICK liquids (no straws) with pills CRUSHED in PUREE. Recommend 1:1 total supervision and assistance as needed during PO intake. Aspiration precautions apply. KENO MANAGER will follow up tomorrow morning to assess tolerance and potential for upgrade. Message sent to KRISSY MOSELEY, RN RE: this upgrade. [place] Examiner Clinican/Clinical Fellow: No Supervisory Statement: I have reviewed and agree with the student/clinical fellow's documentation: N/A Speech Language Pathologist: Selam Avalos M.A., CCC-KENO MANAGER
--- NOTE | 2021-07-28 16:24 | PC.NURSE ---
Precedex gtt & Fentanyl gtt discontinued at 0745 - started on Fentanyl 12mcg patch applied to left shoulder. Patient anxious, difficult to redirect, interpreter translator at bedside multiple times to help comfort. HR maintaining 110-130's, sinus, SBP 150's, RR maintaining 40's, afebrile. Versed 2mg IVP administered with minimal effect. PRN Zyprexa 5mg IM administered. Black removed - DTV by 1500. Unable to obtain PRN Angio - TLC intact. Patient downgraded to tele - okay per casket upholsterer to transfer. 1400 significant facial flushing noticed, temp 97.9 oral, bladder scan 660cc - Oksana Trejo notified - straight cath ordered and 825cc yellow urine removed. Clonodine 0.1mg ordered - awaiting from pharmacy.
[2021-07-28] MEDS: cloNIDine HCL 0.1 MG TABLET PO (16:46)
--- NOTE | 2021-07-28 16:58 | PM.PSYCN ---
History of Present Illness Date of Service: 07/28/21 Chief Complaint: Covid PNA Reason for Consult: medication eval Requesting physician: Oksana Trejo Discussed with referring provider: Yes Sources of Information: patient interviewed and chart reviewed HPI Narrative: Pt is a 41 y.o. Female who presented to [facility] on 06/30/21 with COVID, on day 9 of her illness, complained of shortness of breath, fever, cough. She was admitted to ICU with pneumonitis, ARDS. Had been intubated 11 days and had progressive clearing of her chest x-ray last week along with reduction in minute ventilation requirements and FiO2 and she was successfully weaned from the ventilator, now on nasal high-flow. Per ICU note: ?She has significant behavioral issues which were not delirium but the she does have a long history of panic attacks/anxiety it and she would get so worked up issue of become very tachypneic and and tachycardic and and as a result primary developed some air trapping with the drops in her oxygen saturation and then as soon as she was able to come down either with combination of Zyprexa and dexmedetomidine or just from having this security of the 's presence or any field mechanic who was willing to sit with her and assure her then her respiratory rate would drop below 20 oxygen saturations were 98% to 100 respiratory effort gone.? Consult requested for medication eval. I evaluated the pt this evening with seismic interpreter and her was present on facetime. Pt presented as anxious and out of breath when talking, minimally participated in interview. Stated she does not know if medications are helping, had received IM zyprexa 5 mg prior to interview. Stated she does not sleep well. Per , she has always been a ?nervous person,? ?she gets scared quickly.? He reports since hospitalization, her anxiety has been increased as she worries about her 4 y.o. and wants to come home, asks about the her child. Her reports this is the worst her anxiety has been. He denies that she has a history of psychosis or manic/ hypomanic episodes. He denies that she has a hx of depression.? Past Psychiatric History: -No hx of previous psych treatment. During this hospitalization, she has tried ativan, seroquel 75 mg BID, and klonopin 1 mg TID for sx of anxiety. Medical Evaluation Reviewed: Yes [facility] Medical History Patient denies significant medical history Surgical History H/O breast biopsy History of laparoscopic cholecystectomy History of nephrolithiasis Diagnostics Vital Signs (24Hr): Vital Signs - 24 hr 07/27/21 17:00 07/27/21 18:00 07/27/21 19:00 Temperature 99.5 F 99.5 F 98.2 F Pulse Rate 97 63 72 Respiratory Rate 40 H 29 H 44 H Blood Pressure 113/67 136/84 137/116 H Pulse Oximetry 92 100 89 L 07/27/21 20:00 07/27/21 21:00 07/27/21 22:00 Temperature 99.1 F 99.7 F 100.0 F Pulse Rate 49 L 59 56 Respiratory Rate 20 21 H 19 Blood Pressure 126/76 108/69 110/68 Pulse Oximetry 100 100 100 07/27/21 22:52 07/28/21 00:00 07/28/21 00:11 Temperature 100.4 F 99.9 F Pulse Rate 63 67 Respiratory Rate 20 22 H 20 Blood Pressure 115/67 114/59 L Pulse Oximetry 100 97 07/28/21 00:59 07/28/21 01:56 07/28/21 02:55 Temperature 99.9 F 99.9 F 99.9 F Pulse Rate 63 61 65 Respiratory Rate 20 19 23 H Blood Pressure 117/68 103/63 104/69 Pulse Oximetry 100 100 98 07/28/21 04:00 07/28/21 05:00 07/28/21 05:04 Temperature 99.5 F 99.5 F Pulse Rate 62 67 Respiratory Rate 19 19 28 H Blood Pressure 120/69 113/73 Pulse Oximetry 100 97 07/28/21 06:00 07/28/21 07:00 07/28/21 07:30 Temperature 99 F 99.1 F Pulse Rate 69 63 Respiratory Rate 22 H 23 H 25 H Blood Pressure 122/73 110/72 Pulse Oximetry 95 100 07/28/21 08:00 07/28/21 08:36 07/28/21 09:33 Temperature 99.0 F Pulse Rate 74 74 Respiratory Rate 37 H 40 H Blood Pressure 101/74 101/74 Pulse Oximetry 95 95 07/28/21 11:35 07/28/21 12:00 07/28/21 15:56 Temperature 97.9 F 98 F Pulse Rate 120 H 130 H Respiratory Rate 40 H 42 H 20 Blood Pressure 163/97 H 163/93 H Pulse Oximetry 100 100 07/28/21 16:41 07/28/21 16:46 Temperature Pulse Rate 129 H Respiratory Rate 42 H Blood Pressure 143/91 H Pulse Oximetry Body Mass Index 23.4 Labs Results: 07/28/21 05:22 07/28/21 05:22 Labs: Laboratory Results - last 48 hr 07/26/21 07/26/21 07/27/21 17:48 23:40 00:11 WBC RBC Hgb Hct MCV MCH MCHC RDW Plt Count MPV Immature Gran % (Auto) Neut % (Auto) Lymph % (Auto) [place] % (Auto) Eos % (Auto) Baso % (Auto) Lymph # (Auto) [place] # (Auto) Eos # (Auto) Baso # (Auto) Abs Immat Gran (auto) Absolute Neuts (auto) Absolute Nucleated RBC Nucleated RBC % (auto) VBG pH VBG pCO2 VBG pO2 VBG HCO3 VBG O2 Saturation VBG Base Excess Sodium Potassium Chloride Carbon Dioxide Anion Gap BUN Creatinine Estim Creat Clear Calc Estimated GFR POC Glucose 116 H 58 L* 205 H Random Glucose Calcium Phosphorus Magnesium Albumin 07/27/21 07/27/21 07/27/21 05:07 05:07 05:15 WBC 7.0 RBC 3.64 L Hgb 9.0 L Hct 29.0 L MCV 79.7 L MCH 24.7 L MCHC 31.0 RDW 17.9 H Plt Count 206 MPV 9.5 Immature Gran % (Auto) 0.3 Neut % (Auto) 60.0 Lymph % (Auto) 23.4 [place] % (Auto) 5.6 Eos % (Auto) 10.6 H Baso % (Auto) 0.1 Lymph # (Auto) 1.6 [place] # (Auto) 0.4 Eos # (Auto) 0.7 H Baso # (Auto) 0.0 Abs Immat Gran (auto) 0.02 Absolute Neuts (auto) 4.2 Absolute Nucleated RBC 0.000 Nucleated RBC % (auto) 0.0 VBG pH 7.47 H VBG pCO2 39 VBG pO2 41 VBG HCO3 29 H VBG O2 Saturation 68.0 VBG Base Excess 5.3 Sodium 147 H Potassium 3.0 L D Chloride 110 H Carbon Dioxide 29 Anion Gap 11 L BUN 14 Creatinine 0.56 Estim Creat Clear Calc 117.7 Estimated GFR > 60 POC Glucose Random Glucose 68 Calcium 9.4 Phosphorus 3.5 Magnesium 1.8 Albumin 3.6 07/27/21 07/27/21 07/27/21 05:23 11:47 18:02 WBC RBC Hgb Hct MCV MCH MCHC RDW Plt Count MPV Immature Gran % (Auto) Neut % (Auto) Lymph % (Auto) [place] % (Auto) Eos % (Auto) Baso % (Auto) Lymph # (Auto) [place] # (Auto) Eos # (Auto) Baso # (Auto) Abs Immat Gran (auto) Absolute Neuts (auto) Absolute Nucleated RBC Nucleated RBC % (auto) VBG pH VBG pCO2 VBG pO2 VBG HCO3 VBG O2 Saturation VBG Base Excess Sodium Potassium Chloride Carbon Dioxide Anion Gap BUN Creatinine Estim Creat Clear Calc Estimated GFR POC Glucose 70 111 127 H Random Glucose Calcium Phosphorus Magnesium Albumin 07/27/21 07/28/21 07/28/21 23:52 05:22 05:22 WBC 7.1 RBC 3.66 L Hgb 9.1 L Hct 29.3 L MCV 80.1 MCH 24.9 L MCHC 31.1 RDW 17.7 H Plt Count 214 MPV 9.9 Immature Gran % (Auto) 0.3 Neut % (Auto) 59.3 Lymph % (Auto) 21.3 [place] % (Auto) 6.3 Eos % (Auto) 12.5 H Baso % (Auto) 0.3 Lymph # (Auto) 1.5 [place] # (Auto) 0.5 Eos # (Auto) 0.9 H Baso # (Auto) 0.0 Abs Immat Gran (auto) 0.02 Absolute Neuts (auto) 4.2 Absolute Nucleated RBC 0.000 Nucleated RBC % (auto) 0.0 VBG pH VBG pCO2 VBG pO2 VBG HCO3 VBG O2 Saturation VBG Base Excess Sodium 145 Potassium 3.2 L Chloride 111 H Carbon Dioxide 28 Anion Gap 9 L BUN 12 Creatinine 0.54 Estim Creat Clear Calc 122.1 Estimated GFR > 60 POC Glucose 123 H Random Glucose 99 Calcium 9.2 Phosphorus 3.1 Magnesium 1.7 Albumin 3.4 L 07/28/21 07/28/21 07/28/21 05:23 05:33 11:59 WBC RBC Hgb Hct MCV MCH MCHC RDW Plt Count MPV Immature Gran % (Auto) Neut % (Auto) Lymph % (Auto) [place] % (Auto) Eos % (Auto) Baso % (Auto) Lymph # (Auto) [place] # (Auto) Eos # (Auto) Baso # (Auto) Abs Immat Gran (auto) Absolute Neuts (auto) Absolute Nucleated RBC Nucleated RBC % (auto) VBG pH 7.47 H VBG pCO2 37 VBG pO2 44 VBG HCO3 28 H VBG O2 Saturation 71.0 VBG Base Excess 4.4 Sodium Potassium Chloride Carbon Dioxide Anion Gap BUN Creatinine Estim Creat Clear Calc Estimated GFR POC Glucose 94 140 H Random Glucose Calcium Phosphorus Magnesium Albumin Imaging Radiology Impressions: ITS Impressions Chest X-Ray 06/30/21 18:43 IMPRESSION: Multifocal bilateral airspace disease similar prior chest x-ray June 29, 2021. Imaging features can be seen with COVID-19 pneumonia. Although these features are nonspecific and can be occur with a variety of infectious and noninfectious processes. Chest CTA 06/30/21 21:33 IMPRESSION: 1. No central pulmonary embolus identified. Incomplete assessment of the distal vessels due to respiratory motion artifact, and therefore distal emboli cannot be entirely excluded. 2. Extensive bilateral groundglass opacities consistent with Covid pneumonia. 3. Bilateral breast masses, for which correlation with recent or follow-up breast imaging is recommended. VTE: negative Chest X-Ray 07/06/21 00:09 IMPRESSION: Increased bilateral airspace opacities. Commonly reported imaging features of (COVID-19 or viral) pneumonia are present. Other processes such as influenza pneumonia and organizing pneumonia, as can be seen with drug toxicity and connective tissue disease, can cause a similar imaging pattern. Chest X-Ray 07/08/21 08:48 IMPRESSION: Bilateral airspace opacity/infiltrates, stable. Lungs are hypoexpanded. Chest CTA 07/08/21 14:52 IMPRESSION: * No pulmonary embolism. * Worsening bilateral airspace disease compatible with COVID pneumonitis with increasingly coalescent opacity within the dependent lower lobes bilaterally. * New moderate pneumomediastinum. * Hepatic steatosis. VTE: negative This critical result was discussed with Dr Smith at 07/08/2021 4:52 PM and it was ascertained that the content and urgency of the report was understood at the time of direct communication. Chest X-Ray 07/10/21 09:35 IMPRESSION: 1. Persistent diffuse airspace opacities with more uniform appearance. 2. Mild interval decrease in pneumomediastinum. Chest X-Ray 07/13/21 05:45 IMPRESSION: No significant change from prior. Small pleural effusions. Diffuse bilateral airspace opacities. Chest X-Ray 07/15/21 05:00 IMPRESSION: Similar appearance of hazy opacity throughout both lungs. Chest X-Ray 07/15/21 20:38 IMPRESSION: Endotracheal tube terminates at the level of the hany. Recommend retraction. Right internal jugular central venous catheter terminates over the right atrium. This can also be retracted. Persistent hazy opacity throughout both lungs, similar to prior. This critical result was discussed with Matt Lombardi NP by telephone at 07/15/2021 9:56 PM and it was ascertained that the content and urgency of the report was understood at the time of direct communication. Chest X-Ray 07/16/21 05:00 IMPRESSION: Endotracheal tube terminating 4.5 cm above the hany. Similar appearance of the lungs with diffuse bilateral opacities. Chest X-Ray 07/17/21 05:00 IMPRESSION: Endotracheal tube terminates 3.5 cm above the hany. Worsening bilateral opacities. Chest X-Ray 07/20/21 12:21 IMPRESSION: Satisfactory position of support line and tubes. Diffuse fine bilateral airspace disease suggestive of pneumonitis. Similar to Chest X-Ray 07/25/21 08:40 IMPRESSION: Hypoexpanded lungs with bilateral fine interstitial prominence similar to previous study. Support lines and catheters are stable and unchanged to 07/20/2021. Mental Status Exam Mental Status Exam Narrative: A&O. In hospital attire, unkempt appearance, lying down in bed. Poor eye contact, inattentive. No Tics or Tremors. No abnormal involuntary movements. Anxious, difficult to engage. Non-pressured speech, non-spontaneous, soft spoken and breathing appeared labored when making effort to talk, per ICU notes has hx of desating when she is anxious. No prolonged speech latency or dysarthria. Mood is ?anxious,? affect is nervous, constricted. Denies SI/SIB/HI upon inquiry. Denies A/VH or delusional thought content. Thoughts are coherent, organized. No known cognitive or memory impairment. Insight/ Judgment fair and adequate. Medications Medications Current Medications Aspirin (Aspirin 325 Mg Tablet) 325 mg PO DAILY [facility] Last Admin: 07/28/21 08:27 Dose: 325 mg Documented by: Dextrose (Dextrose 50 % 25 Gm/50 Ml Vial) 25 gm IVPUSH Q15M PRN PRN Reason: per Hypoglycemia Standing Ord. Last Admin: 07/27/21 05:29 Dose: 25 gm Documented by: Enoxaparin Sodium (Enoxaparin Sodium 40 Mg/0.4 Ml Syringe) 40 mg SUBCUT Q24H [facility] Last Admin: 07/28/21 08:27 Dose: 40 mg Documented by: Famotidine (Famotidine/Pf 20 Mg/2 Ml Vial) 20 mg IVPUSH BID [facility] Last Admin: 07/28/21 08:27 Dose: 20 mg Documented by: Doxycycline Hyclate 100 mg/ (Sodium Chloride) 250 mls @ 166.67 mls/hr IV Q12H [facility] Last Infusion: 07/28/21 07:25 Dose: Infused Documented by: Insulin Glargine (Insulin Glargine,Hum.Rec.Anlog 100 Unit/Ml 10 Ml Vial) 25 unit SUBCUT BEDTIME [facility] Last Admin: 07/27/21 22:17 Dose: 1 unit Documented by: Olanzapine (Olanzapine 10 Mg Vial) 5 mg IM BID PRN PRN Reason: anxiety/restlessness Last Admin: 07/28/21 08:28 Dose: 5 mg Documented by: Pharmacy Consult (Consult Rx Perform Med Rec) 1 each MISCELLANE ONCE PRN PRN Reason: Consult order Prednisone (Prednisone 20 Mg Tablet) 20 mg PO DAILY [facility]; Taper Stop: 08/06/21 08:59 Last Admin: 07/28/21 08:27 Dose: 20 mg Documented by: Sodium Chloride (0.9 % Sodium Chloride Flush 3 Ml Syringe) 3 ml IVFLUSH QSHIFT [facility] Last Admin: 07/28/21 15:49 Dose: 3 ml Documented by: Thiamine HCl (Thiamine Hcl 100 Mg Tablet) 200 mg PO BID [facility] Last Admin: 07/28/21 08:27 Dose: 200 mg Documented by: Vitamin D (Cholecalciferol (Vitamin D3) 25 Mcg Tablet) 50 mcg PO DAILY [facility] Last Admin: 07/28/21 08:27 Dose: 50 mcg Documented by: Allergies Allergies Allergy/AdvReac Type Severity Reaction Status Date / Time acetaminophen [Percocet] AdvReac Unknown vomiting Verified 06/30/21 18:31 oxycodone [Percocet] AdvReac Unknown vomiting Verified 06/30/21 18:31 Assessment & Plan Assessment & Plan (1) Panic attack as reaction to stress: Status: Acute Code(s): F41.0 - Panic disorder [episodic paroxysmal anxiety]; F43.0 - Acute stress reaction (2) Pneumomediastinum: Status: Acute Code(s): J98.2 - Interstitial emphysema (3) Acute respiratory distress syndrome (ARDS) due to COVID-19 virus: Status: Acute Code(s): U07.1 - COVID-19; J80 - Acute respiratory distress syndrome (4) Acute respiratory failure with hypoxia: Status: Acute Code(s): J96.01 - Acute respiratory failure with hypoxia Assessment and Plan: Pt is a 41 y.o. Female who presented to [facility] on 06/30/21 with COVID, on day 9 of her illness, complained of shortness of breath, fever, cough. She was admitted to ICU with pneumonitis, ARDS. Recently extubated and transferred to [facility]. She has been presenting with sx of panic disorder and has been having increased anxiety and panic attacks during this admission, which has been treated with PRN IM zyprexa and Precedex with moderate effect. During panic attacks, her RR would increase resulting in decreased O2 sat. Plan: Discontinue zyprexa IM 5 mg BID PRN. Will start zyprexa 5 mg TID scheduled and klonopin 1 mg BID to target sx of anxiety (medications can be crushed), as pt may benefit from having anxiolytic medications on consistent basis to target daily anxiety sx. Monitor medication for benefit. -Continue monitoring medically. -Thank you for this consultation. If you have any questions or concerns, please do not hesitate to contact psychiatry service. I spent minutes with the patient and/or on the patient floor today, greater than?50% of which was spent counseling/coordinating care.
[2021-07-28] MEDS: Insulin Glargine,Hum.rec.anlog 100 UNIT/ML 10 ML VIAL 25 UNIT SUBCUT (21:38)
[2021-07-28] MEDS: OLANZapine 5 MG TABLET PO (21:38)
[2021-07-28] MEDS: clonazePAM 1 MG TABLET PO (21:38)
[2021-07-28 23:03] LABS: Glucose, Whole Blood 146 mg/dL (60-115)
[2021-07-29] VITALS (27 sets, daily range): BP systolic 85–190; BP diastolic 40–98; PULSE 95–173; RESP 18–40; TEMP 35.5–37.6; O2SAT 79–99
[2021-07-29 05:28] LABS: MANUAL DIFF FLAG NO
[2021-07-29 05:33] LABS: VBG Base Excess -0.6 mmol/L; VBG HCO3 24 mmol/L (22-26); VBG pCO2 40 mmHg; VBG pH 7.38 (7.32-7.43); VBG pO2 37 mmHg
[2021-07-29 05:35] LABS: Venous Blood Gas Refer to POC result
[2021-07-29 05:36] LABS: Basophils Percent Auto 0.2 % (0-2); Eosinophils Absolute Auto 0.8 X10*3/uL (0.0-0.4); Eosinophils Percent Auto 6.3 % (0-4); Hematocrit 37.2 % (37-47); Hemoglobin 11.3 g/dl (12.0-16.0); Imm Gran Abs Auto 0.06 X10*3/uL (0.00-0.03); Imm Gran Pct Auto 0.5 % (0.0-0.4); Lymphocytes Absolute Auto 1.6 X10*3/uL (1.2-4.9); Lymphocytes Percent Auto 13.3 % (20-40); Mean Corpuscular HGB Conc 30.4 g/dl (31.0-35.0); Mean Corpuscular Hemoglobin 24.7 pg (27.0-33.0); Mean Corpuscular Volume 81.2 fL (80-98); Mean Platelet Volume 9.4 fL (9.4-12.3); Monocytes Absolute Auto 0.8 X10*3/uL (0.1-1.2); Monocytes Percent Auto 6.5 % (2-11); Neutrophils Absolute Auto 8.9 X10*3/uL (2.0-8.3); Neutrophils Percent Auto 73.2 % (45-73); Platelet Count 324 X10*3/uL (160-400); Red Blood Count 4.58 X10*6/uL (4.20-5.50); Red Cell Distribution Width 18.6 % (11.0-16.0); White Blood Count 12.2 X10*3/uL (4.8-10.8)
[2021-07-29 05:55] LABS: Albumin Level 3.8 g/dL (3.5-5.0); Anion Gap 16 (12-20); Blood Urea Nitrogen 12 mg/dL (9-16); Carbon Dioxide 24 mmol/L (22-29); Chloride 109 mmol/L (96-108); Creatinine Clr Calc Pharmacy 113.6; Estimated Glomerular Filt Rate > 60; Glucose Random 122 mg/dL (60-115); Magnesium 1.6 mg/dL (1.6-2.6); Phosphorus 3.2 mg/dL (2.7-4.5); Sodium 145 mmol/L (135-145)
--- NOTE | 2021-07-29 08:22 | PC.NURSE ---
Pt very anxious and restless overnight. Had trench trimmer fine at bedside, patient persistently asking for medication but unable to specify what medication she is looking for. Pt had a Psych Consult and was prescribed PO Zyprexa 5MG TID and Klonopin 1mg BID for anxiety, both were given as scheduled. Telesitter in room for patients safety. Pt had several episodes overnight where she became very worked up, pulled off her high flow, causing her O2 to decrease rapidly, and became increasingly tachypneic and tachycardic. Overnight pt also pulled out her triple lumen in her right IJ, no active bleeding. This RN was unable to obtain new IV access, and oncoming RN made aware. This RN requested this patient have a 1:1 sitter for patient safety.
--- NOTE | 2021-07-29 08:30 | MHC.CDI.CONC ---
CDI Concurrent Query Documentation Clarification: PHYSICIAN'S DOCUMENTATION REQUEST Date of Query: 07/29/21 0831 Patient Name: Dominique Astudillo Admit Date: 07/01/21 Dear Doctor, A review of the medical record indicates additional documentation may be needed. Please review below and update the documentation accordingly. Risk Factors/Clinical Indicators/Treatments ICU 07/27 - Questionable early ventilatory associated infection MSSA. Intubated, IV Doxycycline Still on nasal high flow which probably can be slowly weaned. Based on the above, could you clarify in the Progress Notes the appropriate diagnosis, if significant, that supports the above abnormalities and additional evaluation, monitoring, and/or treatment rendered: Ventilator associated infection MSSA Ventilator associated pneumonia MSSA Other (please specify) Unable to determine Use of terms such as suspected, likely, concern for, or probable (associated with a specific diagnosis that is being evaluated, monitored, or treated as if it exists) are acceptable and can be coded in the inpatient setting, when documented at the time of discharge. Thank you, Doris Denny [facility], CDIS Extension: [phone] Please use your independent medical judgment in providing your response. THIS QUERY IS PART OF THE PERMANENT MEDICAL RECORD Provider Response: Other Other Diagnosis: The patient does have ventilator associated pneumonia and initially MSSA was all that was cultured with significant polys but this time we have both yeast as well as Gram-positive cocci and after having been on treatment for MSSA which most recently was doxycycline I have to be concerned about MRSA and possibly and an invasive fungal disease so I will continue the voriconazole
--- NOTE | 2021-07-29 10:09 | MHC.SLORD ---
Speech Language Pathology Order Status:Attempted to see pt on IMC however, RN reported that pt is not appropriate to be seen due to transferring back to ICU. Current diet order [id number] PUREED solids and NECTAR THICK liquids after being seen by ST 07/28. 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
[2021-07-29 10:21] LABS: Venous Blood Gas Refer to POC result
[2021-07-29 10:21] LABS: VBG Base Excess -5.8 mmol/L; VBG HCO3 22 mmol/L (22-26); VBG pCO2 51 mmHg; VBG pH 7.23 (7.32-7.43); VBG pO2 55 mmHg
[2021-07-29] MEDS: clonazePAM 1 MG TABLET PO ×2 (10:27→20:51)
[2021-07-29] MEDS: Thiamine HCL 100 MG TABLET 200 MG PO ×2 (10:27→20:51)
[2021-07-29] MEDS: OLANZapine 5 MG TABLET PO ×3 (10:27→20:51)
[2021-07-29] MEDS: Cholecalciferol (Vitamin D3) 25 MCG TABLET 50 MCG PO (10:28)
[2021-07-29] MEDS: Enoxaparin Sodium 40 MG/0.4 ML SYRINGE SUBCUT (10:28)
[2021-07-29] MEDS: predniSONE 20 MG TABLET PO (10:28)
--- NOTE | 2021-07-29 12:27 | MHC.CLN ---
F/U TRANSFERRED TO ICU TODAY DUE TO WORSENING INTERSTITIAL LUNG DISEASE. DIET=PUREE WITH NECTAR THICK LIQUIDS. STAGE I TO RIGHT BUTTOCKS; STAGE II BILATERAL BUTTOCKS. SHOWS WEIGHT LOSS SINCE 07/24 OF -9.6%. ADDING ENSURE TID TO PROVIDE 1050 KCAL, 60 G PROTEIN. CONTINUE TO FOLLOW FOR DIET TOLERANCE, PO INTAKE.
[2021-07-29] MEDS: Lactated Ringers 1,000 ML 999 ML IV ×2 (12:30→16:10)
[2021-07-29] MEDS: propofoL 1,000 MG/100 ML VIAL 11.52 MG IVCONT (12:30)
--- NOTE | 2021-07-29 12:44 | HO.PM.IMPN ---
Subjective Subjective Date of Service: 07/29/21 Interval History: downgraded from the ICU yesterday seen this morning for follow up for COVID 19 appears sob, increased work of breathing Review of Systems Review of Systems: Yes all other systems are reviewed and are negative Constitutional Constitutional: Denies chills and Denies fever(s) Cardiovascular Cardiovascular: Denies chest pain Gastrointestinal Gastrointestinal: Denies abdominal pain Physical Exam Vital Signs: Vital Signs: Last Vital Signs Temp 96 F L 07/29/21 07:18 Pulse 152 H 07/29/21 12:00 Resp 38 H 07/29/21 12:00 BP 123/79 07/29/21 12:00 Pulse Ox 96 07/29/21 12:00 Body Mass Index 23.4 Const: General: alert, awake and tired appearing HENMT: Head: Yes normocephalic and Yes atraumatic Eyes: Sclerae: sclerae normal Chest: Chest palpation & inspection: normal inspection of the chest Resp: Effort & Inspection: tachypneic Auscultation: diminished lung sounds Cardio: Rate: tachycardic Rhythm: regular rhythm GI: Palpation (GI): Soft to palpation and nontender Neuro: Cranial nerves: Yes CN's II-XII intact bilaterally and Yes Bilaterally intact EOM present Objective Data Active Medications Clonazepam (Clonazepam 1 Mg Tablet) 1 mg PO BID [facility] Last Admin: 07/29/21 10:27 Dose: 1 mg Documented by: PHIL Dextrose (Dextrose 50 % 25 Gm/50 Ml Vial) 25 gm IVPUSH Q15M PRN PRN Reason: per Hypoglycemia Standing Ord. Last Admin: 07/27/21 05:29 Dose: 25 gm Documented by: TATIANNA Enoxaparin Sodium (Enoxaparin Sodium 40 Mg/0.4 Ml Syringe) 40 mg SUBCUT Q24H [facility] [place] Last Admin: 07/29/21 10:28 Dose: 40 mg Documented by: PHIL Famotidine (Famotidine/Pf 20 Mg/2 Ml Vial) 20 mg IVPUSH BID [facility] [place] Last Admin: 07/29/21 11:12 Dose: Not Given Documented by: PORTIA Non-Admin Reason: No Access Doxycycline Hyclate 100 mg/ (Sodium Chloride) 250 mls @ 166.67 mls/hr IV Q12H [facility] [place] Last Admin: 07/29/21 11:12 Dose: Not Given Documented by: PORTIA Non-Admin Reason: No Access Insulin Glargine (Insulin Glargine,Hum.Rec.Anlog 100 Unit/Ml 10 Ml Vial) 25 unit SUBCUT BEDTIME [facility] [place] Last Admin: 07/28/21 21:38 Dose: 25 unit Documented by: PALMER Olanzapine (Olanzapine 5 Mg Tablet) 5 mg PO TID [facility] [place] Last Admin: 07/29/21 10:27 Dose: 5 mg Documented by: PHIL Pharmacy Consult (Consult Rx Perform Med Rec) 1 each MISCELLANE ONCE PRN PRN Reason: Consult order Prednisone (Prednisone 20 Mg Tablet) 20 mg PO DAILY [facility] [place]; Taper Stop: 08/06/21 08:59 Last Admin: 07/29/21 10:28 Dose: 20 mg Documented by: PHIL Sodium Chloride (0.9 % Sodium Chloride Flush 3 Ml Syringe) 3 ml IVFLUSH QSHIFT [facility] [place] Last Admin: 07/29/21 10:29 Dose: Not Given Documented by: PHIL Non-Admin Reason: No Access Thiamine HCl (Thiamine Hcl 100 Mg Tablet) 200 mg PO BID [facility] [place] Last Admin: 07/29/21 10:27 Dose: 200 mg Documented by: PHIL Vitamin D (Cholecalciferol (Vitamin D3) 25 Mcg Tablet) 50 mcg PO DAILY [facility] [place] Last Admin: 07/29/21 10:28 Dose: 50 mcg Documented by: PHIL Labs CBC & Chem 7: 07/29/21 05:20 07/29/21 05:20 Labs: Laboratory Results - last 24 hr 07/28/21 07/29/21 07/29/21 21:43 05:20 05:20 MCV 81.2 MCH 24.7 L MCHC 30.4 L RDW 18.6 H Plt Count 324 D MPV 9.4 Immature Gran % (Auto) 0.5 H Neut % (Auto) 73.2 H Lymph % (Auto) 13.3 L [place] % (Auto) 6.5 Eos % (Auto) 6.3 H Baso % (Auto) 0.2 Lymph # (Auto) 1.6 [place] # (Auto) 0.8 Eos # (Auto) 0.8 H Baso # (Auto) 0.0 Abs Immat Gran (auto) 0.06 H Absolute Neuts (auto) 8.9 H Absolute Nucleated RBC 0.000 Nucleated RBC % (auto) 0.0 VBG pH VBG pCO2 VBG pO2 VBG HCO3 VBG O2 Saturation VBG Base Excess Anion Gap 16 Estim Creat Clear Calc 113.6 Estimated GFR > 60 POC Glucose 146 H Random Glucose 122 H Calcium 10.0 D Phosphorus 3.2 Magnesium 1.6 Albumin 3.8 07/29/21 07/29/21 05:28 10:16 MCV MCH MCHC RDW Plt Count MPV Immature Gran % (Auto) Neut % (Auto) Lymph % (Auto) [place] % (Auto) Eos % (Auto) Baso % (Auto) Lymph # (Auto) [place] # (Auto) Eos # (Auto) Baso # (Auto) Abs Immat Gran (auto) Absolute Neuts (auto) Absolute Nucleated RBC Nucleated RBC % (auto) VBG pH 7.38 7.23 L VBG pCO2 40 51 VBG pO2 37 55 VBG HCO3 24 22 VBG O2 Saturation 54.0 74.0 VBG Base Excess -0.6 -5.8 Anion Gap Estim Creat Clear Calc Estimated GFR POC Glucose Random Glucose Calcium Phosphorus Magnesium Albumin Assessment and Plan (1) Acute respiratory distress syndrome (ARDS) due to COVID-19 virus: Status: Acute (2) Acute respiratory failure with hypoxia: Status: Acute (3) Pneumonia due to COVID-19 virus: Status: Acute Assessment and Plan: This is a 41-year-old American-speaking female with no significant past medical history admitted for COVID-19, requiring ICU leval of care from 07/02 to 07/28 and 11 days of intubation (07/15-07/26) downgraded to IMC on 07/28. Course has been complicated by severe anxiety/panic attacks. Acute respiratory failure with hypoxia Secondary to underlying COVID 19 intubated from 07/15 to 07/26 Now with increasing workup breathing, increasing oxygen requirements, tachycardia. 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 Buchanan Quality Stroke Does the patient have a stroke diagnosis?: No VTE Prior VTE?: No VTE Risk Level:: Medical - moderate - high VTE Device Contraindication: Treatment Not Indicated VTE Drug Contraindication: N/A - Med Ordered
[2021-07-29] MEDS: propofoL 200 MG/20 ML VIAL 40 MG IVPUSH (13:30)
[2021-07-29 13:54] LABS: VBG Base Excess -0.2 mmol/L; VBG HCO3 26 mmol/L (22-26); VBG pCO2 53 mmHg; VBG pO2 49 mmHg
--- NOTE | 2021-07-29 13:58 | P.PNCC_ITS ---
Subjective Subjective Date of Service: 07/29/21 Interval History: 41-year-old unvaccinated female who was extubated 3 days to 4 days ago with red remarkably clearing chest x-ray at and marked reduction in minutes ventilatory requirement and FiO2 of 35% and all this due to COVID-19 pneumonitis in ARDS that appear to resolve and I went upstairs to see her on the floor when respiratory therapy told me that she was having a difficult time in indeed work of breathing with accessory muscles and diaphragmatic effort were excessive respiratory rate was in the 40s becoming lethargic and a stat blood gas showed that she was developing respiratory and metabolic acidosis and chest x-ray with extensive bilateral interstitial infiltrates again so this was objective disease in this was not the no just simply a panic attack and apparently she really started to go downhill rapidly the prior to transfer and upon arrival IA immediately intubated and placed a central line because she had no IV access All procedures went without complication with good chest x-ray location of the ET tube the OG tube and the CVP line in the right atrium and we will obtain central venous pressure readings to gauge filling pressures and fluid volume and where using Levophed p.r.n. for blood pressure she had to be paralyzed with rocuronium because her respiratory rates were excessive and because of which she had very high peak airway pressures and she does have very significant reduction of compliance with high plateau pressures so I reduced tidal volume and inspiratory flow rate and then her respiratory rate ultimately with propofol and rocuronium Should be fully recover a cultured and I will cover her empirically with 1 dose each of vancomycin and meropenem Critical Care Time (minutes): 90 Physical Exam Vital Signs: Vital Signs: Last Vital Signs Temp 96 F L 07/29/21 07:18 Pulse 152 H 07/29/21 12:00 Resp 38 H 07/29/21 12:00 BP 123/79 07/29/21 12:00 Pulse Ox 96 07/29/21 12:00 Body Mass Index 23.4 Unarousable with increasing pCO2 and respiratory and metabolic acidosis but capable of moving all 4 extremities Neck veins flat with diminished but palpable bilateral carotid upstrokes and palpable peripheral pulses but no livedo and no acrocyanosis Skin intact Abdomen with no organomegaly and soft Chest with a significant diaphragmatic expiratory effort and inspiratory effort with accessory muscles Cardiac with marked sinus tachycardia with rates up to 170 Objective Data Labs CBC & Chem 7: 07/29/21 05:20 07/29/21 05:20 Labs: Laboratory Results - last 24 hr 07/28/21 07/29/21 07/29/21 21:43 05:20 05:20 WBC 12.2 H RBC 4.58 D Hgb 11.3 L D Hct 37.2 D MCV 81.2 MCH 24.7 L MCHC 30.4 L RDW 18.6 H Plt Count 324 D MPV 9.4 Immature Gran % (Auto) 0.5 H Neut % (Auto) 73.2 H Lymph % (Auto) 13.3 L [place] % (Auto) 6.5 Eos % (Auto) 6.3 H Baso % (Auto) 0.2 Lymph # (Auto) 1.6 [place] # (Auto) 0.8 Eos # (Auto) 0.8 H Baso # (Auto) 0.0 Abs Immat Gran (auto) 0.06 H Absolute Neuts (auto) 8.9 H Absolute Nucleated RBC 0.000 Nucleated RBC % (auto) 0.0 VBG pH VBG pCO2 VBG pO2 VBG HCO3 VBG O2 Saturation VBG Base Excess Sodium 145 Potassium 4.0 D Chloride 109 H Carbon Dioxide 24 Anion Gap 16 BUN 12 Creatinine 0.58 Estim Creat Clear Calc 113.6 Estimated GFR > 60 POC Glucose 146 H Random Glucose 122 H Calcium 10.0 D Phosphorus 3.2 Magnesium 1.6 Albumin 3.8 07/29/21 07/29/21 07/29/21 05:28 10:16 13:49 WBC RBC Hgb Hct MCV MCH MCHC RDW Plt Count MPV Immature Gran % (Auto) Neut % (Auto) Lymph % (Auto) [place] % (Auto) Eos % (Auto) Baso % (Auto) Lymph # (Auto) [place] # (Auto) Eos # (Auto) Baso # (Auto) Abs Immat Gran (auto) Absolute Neuts (auto) Absolute Nucleated RBC Nucleated RBC % (auto) VBG pH 7.38 7.23 L 7.30 L VBG pCO2 40 51 53 VBG pO2 37 55 49 VBG HCO3 24 22 26 VBG O2 Saturation 54.0 74.0 72.0 VBG Base Excess -0.6 -5.8 -0.2 Sodium Potassium Chloride Carbon Dioxide Anion Gap BUN Creatinine Estim Creat Clear Calc Estimated GFR POC Glucose Random Glucose Calcium Phosphorus Magnesium Albumin Microbiology Microbiology Results: Microbiology 07/17/21 09:48 Sputum - Suctioned Gram Stain - Final 07/17/21 09:48 Sputum - Suctioned Sputum Culture - Final Staphylococcus aureus 07/01/21 00:37 Blood - Venous Blood Culture - Final No growth after 5 days. 07/01/21 00:37 Blood - Venous Blood Culture - Final No growth after 5 days. 07/02/21 15:55 Urine clean catch - Urine ortiz top Urine Culture - Final Quality Stroke Does the patient have a stroke diagnosis?: No VTE Prior VTE?: No VTE Risk Level:: Medical - moderate - high VTE Device Contraindication: Treatment Not Indicated VTE Drug Contraindication: N/A - Med Ordered Progress Note: A&P Assessment and plan (1) Acute hypercapnic respiratory failure: Status: Acute (2) Acute and chronic respiratory failure with hypoxia: Status: Acute (3) Encephalopathy acute: Status: Acute (4) Panic attack as reaction to stress: Status: Acute (5) Hypernatremia: Status: Acute (6) Hypokalemia: Status: Acute (7) Pneumomediastinum: Status: Acute (8) Anxiety: Status: Acute (9) Acute respiratory distress syndrome (ARDS) due to COVID-19 virus: Status: Acute (10) Acute respiratory failure with hypoxia: Status: Acute (11) Pneumonia due to COVID-19 virus: Status: Acute (12) COVID-19: Status: Acute (13) Breast mass: Status: Acute (14) Hypoxia: Status: Acute Assessment and Plan: Empiric antibiotic coverage while cultures are returned as well as repeat the blood gas and lactic acid and procalcitonin and will continue to support as above
--- NOTE | 2021-07-29 14:05 | W.PM.CCHP ---
Procedures Date of Service Date of Service: 07/29/21 Central Line Placement Left IJ: Central Line Comments: Because there was no IV access and and clearly with sinus tachycardia at 170 we needed CVP measurements so after sterile preparation and draping utilizing left internal jugular vein with ultrasound guidance I gained easy entry due to the left internal jugular vein passing retrograde with Seldinger technique AJ tipped guidewire and then a 20 centimetre triple-lumen central venous catheter with placement in the right atrium by x-ray with no complications in other words no evidence of pneumothorax Consent for Procedure: Emergent-no informed consent obtained Time out performed: Yes Sterile Technique Used: Yes Patient placed on monitor/pulse ox: Yes prep: mask, gown and gloves Central line prep: Chlorhexidine scrub Local anesthesia used: lidocaine 1% Ultrasound used for placement: Yes Central line lumen inserted: triple Post procedure: sutured in place, good blood return, all ports aspirated, flushed, capped and sterile dressing applied Post procedure x-ray: tip of catheter in good position and no pneumothorax seen Patient tolerated procedure: well and no complications Complications: none
[2021-07-29] MEDS: Midazolam HCl/PF 2 MG/2 ML VIAL 3 MG IM (14:07)
[2021-07-29] MEDS: Rocuronium Bromide 50 MG/5 ML VIAL 30 MG IVPUSH (14:07)
[2021-07-29] MEDS: Rocuronium Bromide 50 MG/5 ML VIAL 40 MG IVPUSH (14:08)
--- NOTE | 2021-07-29 14:09 | W.PM.CCHP ---
Procedures Date of Service Date of Service: 07/29/21 Intubation Intubation Comments: Due to precipitous respiratory failure under emergent conditions gave 3 mg of IM Versed and 40 mg of IM rocuronium and utilizing glide scope had excellent visualization of vocal cords and intubation with a 7.5 endotracheal tube performed without complication and properly secured to her face as initially it 25 cm then pulled back to 24 with good placement about 2 cm above the hany both sides well expanded with good bilateral breath sounds and excellent end-tidal CO2 response Consent for Procedure: Emergent-no informed consent obtained Time out performed: Yes Sedative: versed Paralytic: rocuronium Laryngoscope: fiber optic video scope ET tube size: 7.5 ET tube uncuffed: No Tube secured depth (cm): 24 Tube secured location: lips Tube placement confirmation: visualized tube passing through cords, equal breath sounds bilaterally, no breath sounds over epigastrium and confirmation by capnometry Patient tolerated procedure: well and no complications Intubation complications: none
[2021-07-29 14:18] LABS: Lactic Acid 1.8 mmol/L (0.5-2.0)
[2021-07-29] MEDS: vancomycin HCL 1,000 MG in 0.9 % Sodium Chloride 250 ML 270 MG IV (14:29)
[2021-07-29] MEDS: Magnesium Sulfate/D5W 1 GM/100 ML PIGGYBACK IV (14:29)
[2021-07-29] MEDS: methylPREDNISolone Sod Succ 40 MG/ML VIAL IVPUSH (14:36)
[2021-07-29 14:43] LABS: Procalcitonin 0.11 ng/mL
[2021-07-29 15:00] LABS: Venous Blood Gas Refer to POC result
[2021-07-29] MEDS: 0.9 % Sodium Chloride Flush 3 ML SYRINGE IVFLUSH (15:50)
[2021-07-29] MEDS: Midazolam HCl/PF 2 MG/2 ML VIAL 3 MG IVPUSH (15:51)
--- NOTE | 2021-07-29 16:09 | MHC.CLN ---
F/U PATIENT IN ICU, INTUBATED AND SEDATED, HAS CENTRAL LINE. IF TUBE FEEDING INITIATED, RECOMMEND PRIOR TUBE FEEDING: RECOMMEND PROMOTE AT MAX GOAL RATE 60 ML/HR TO PROVIDE 1440 KCALS (22.9 KCAL/KG BASED ON CMW), 90 G PROTEIN (1.4 G/KG BASED ON CMW), 1208 ML WATER FROM FORMULA. TF FORMULA APPROPRIATE TO PROMOTE WOUND HEALING MONITOR TOLERANCE, RESIDUALS AND LYTES
[2021-07-29] MEDS: Midazolam HCl/NS 50 MG/50 ML PLAST..BAG IVCONT (16:10)
[2021-07-29 16:26] LABS: Glucose, Whole Blood 182 mg/dL (60-115)
--- NOTE | 2021-07-29 16:40 | MHC.CLN ---
F/U PATIENT IN ICU, INTUBATED, SEDATED, AND HAS CENTRAL LINE. IF TUBE FEEDING STARTED, RD RECOMMENDS PROMOTE FORMULA. PROMOTE AT MAX GOAL RATE 50 ML/HOUR. PROVIDES 1200 KCAL, PLUS 507 KCAL WITH PZQLVULG=5489 KCAL (25.9 KCAL/KG ABW), 75 G PROTEIN (1.14 G/KG ABW), AND 1007 ML FREE WATER. SIGNIFICANT WEIGHT LOSS -17% SINCE 06/30/21. ESTIMATED NEEDS BASED ON CURRENT WEIGHT=64 KG. MONITOR TOLERANCE AND LYTES.
[2021-07-29] MEDS: propofoL 1,000 MG/100 ML VIAL 19.2 MG IVCONT ×2 (17:16→21:26)
--- NOTE | 2021-07-29 17:42 | PC.NURSE ---
Assumed care at 1145 - This RN at bedside on IMC for transport to ICU. Patient abdominal breathing, RR 40's, minimal response to sternal rub, HR 130's sinus, eyes rolled back. No IV access present. Patient transported to ICU. Patient intubated with 3mg IM Versed @ 1200 - #7.5 ETT, 23cm at lip. Vent settings ACVC+ 18/400/5/60%. L IJ TLC placed by wrist liner. Propofol 40mg IVP & Rocuronium 30mg IVP administered for vent synchrony - Started on Propofol gtt. SBP 80's - started on Levophed gtt and slowly titrated off. Patient eyes open, RR back up to high 30's, waving this RN to come into room. Propofol gtt maxed out, Versed 3mg IVP administered and started on Versed gtt @ set rate of 2mg. Patient appears comfortable and appropriately sedated, RASS -2. HR maintaining 140-170's, urine output >10cc/hr - LR 1L bolus x2 administered. BC/SC/UC obtained and pending. ID consulted and Dr Holt @ bedside. Vanco 1g x1 dose, Meropenum 1g x1 dose & Vorconizole 1/2 dose administered. Mag 1g IV administered. CXR obtained - see report. updated by this RN & MD.
[2021-07-29] MEDS: fentaNYL citrate/PF 100 MCG/2 ML VIAL 50 MCG IVPUSH ×2 (19:34→23:44)
[2021-07-29] MEDS: Lactated Ringers 1,000 ML 100 ML IVCONT (19:40)
[2021-07-29 20:40] LABS: Influenza A PCR NEGATIVE (Negative); Influenza B PCR NEGATIVE (Negative); Resp Syncy Virus RNA Qual PCR NEGATIVE (Negative); SARS COV2 PCR INHOUSE POSITIVE (Negative)
[2021-07-29] MEDS: Chlorhexidine Gluc Oral Rinse 15 ML MOUTHWASH BUCCAL (20:51)
[2021-07-29] MEDS: Famotidine/PF 20 MG/2 ML VIAL IVPUSH (20:55)
[2021-07-29 21:30] LABS: Glucose, Whole Blood 140 mg/dL (60-115)
[2021-07-29] MEDS: vancomycin HCL 1,500 MG in 0.9 % Sodium Chloride 500 ML 333.33 MG IV (23:45)
--- NOTE | 2021-07-29 23:48 | P.CNID_ITS ---
History of Present Illness Data of Consult Service Date: 07/29/21 Requesting physician: Pramod Ponce Primary Care Provider: None Physician HPI Reason for consult: respiratory failure She originally presents to hospital on 06/29 with shortness of breath and diagnosed with COVID. She has had respiratory distress and then improved. She had precipitous shortness of breath yesterday and was intubated. She had cultures drawn and pending. CXR has more infiltrate. Review of Systems Review of Systems: Yes unobtainable due to endotracheal tube PMFSH Past Medical History Medical History Patient denies significant medical history Family History Family History Father Diabetes Hypertension Mother Diabetes Hypertension Maternal Grandfather Throat cancer Brother High cholesterol Maternal Grandmother Hypertension Family history: reviewed and not pertinent Surgical History Surgical History H/O breast biopsy History of laparoscopic cholecystectomy History of nephrolithiasis Social History Social History Household Members: Family Housing: House Do you presently have visiting nurse or other home services: No Unable to assess alcohol history related to: Unknown Patient Tobacco Use Status: Former Tobacco user e-Cigarette/Vaping Use: Never Used service: No Current occupational status: unemployed Meds Allergies Allergy/AdvReac Type Severity Reaction Status Date / Time ketamine Allergy Intermediate Rash Verified 08/31/21 09:29 oxycodone [Percocet] AdvReac Unknown vomiting Verified 08/31/21 09:29 Active Medications: Current Medications Chlorhexidine Gluconate (Chlorhexidine Gluc Oral Rinse 15 Ml Mouthwash) 15 ml BUCCAL TID [facility] Last Admin: 07/29/21 20:51 Dose: 15 ml Documented by: Clonazepam (Clonazepam 1 Mg Tablet) 1 mg PO BID [facility] Last Admin: 07/29/21 20:51 Dose: 1 mg Documented by: Dextrose (Dextrose 50 % 25 Gm/50 Ml Vial) 25 gm IVPUSH Q15M PRN; Protocol PRN Reason: per Hypoglycemia Standing Ord. Enoxaparin Sodium (Enoxaparin Sodium 40 Mg/0.4 Ml Syringe) 40 mg SUBCUT Q24H [facility] Last Admin: 07/29/21 10:28 Dose: 40 mg Documented by: Famotidine (Famotidine/Pf 20 Mg/2 Ml Vial) 20 mg IVPUSH BID [facility] Last Admin: 07/29/21 20:55 Dose: 20 mg Documented by: Fentanyl (Fentanyl Citrate/Pf 100 Mcg/2 Ml Vial) 50 mcg IVPUSH Q2H PRN; Protocol PRN Reason: wob Last Admin: 07/29/21 23:44 Dose: 50 mcg Documented by: Glucose (Glucose Gel 15 Gm Gel..Gram.) 15 gm PO Q15M PRN; Protocol PRN Reason: per Hypoglycemia Standing Ord. Propofol (Diprivan) 1,000 mg in 100 mls @ 0 mls/hr IVCONT .Q0M [facility]; Protocol Last Admin: 07/29/21 21:26 Dose: 50 mcg/kg/min, 19.2 mls/hr Documented by: Voriconazole 384 mg/ Sodium (Chloride) 100 mls @ 50 mls/hr IV Q12H [facility] Stop: 07/30/21 04:59 Last Infusion: 07/29/21 18:20 Dose: Infused Documented by: Midazolam HCl (Versed) 50 mg in 50 mls @ 2 mls/hr IVCONT .Q24H [facility] Last Admin: 07/29/21 16:10 Dose: 2 mg/hr, 2 mls/hr Documented by: Lactated Ringer's (Lr) 1,000 mls @ 100 mls/hr IVCONT .Q10H [facility] Last Admin: 07/29/21 19:40 Dose: 100 mls/hr Documented by: Vancomycin HCl 1,500 mg/ (Sodium Chloride) 500 mls @ 333.333 mls/hr IV Q12H [facility] Last Admin: 07/29/21 23:45 Dose: 333.33 mls/hr Documented by: Meropenem 1 gm/ Sodium (Chloride) 100 mls @ 100 mls/hr IV Q8H [facility] Last Infusion: 07/29/21 21:40 Dose: Infused Documented by: Insulin Glargine (Insulin Glargine,Hum.Rec.Anlog 100 Unit/Ml 10 Ml Vial) 25 unit SUBCUT BEDTIME [facility] Last Admin: 07/29/21 20:54 Dose: Not Given Documented by: Insulin Human Lispro (Insulin Lispro 100 Unit/Ml 3 Ml Vial) 0 unit SUBCUT QIDACHS [facility]; Protocol Stop: 07/30/21 13:52 Last Admin: 07/29/21 20:14 Dose: Not Given Documented by: Methylprednisolone Sodium Succinate (Methylprednisolone Sod Succ 40 Mg/Ml Vial) 40 mg IVPUSH Q12H [facility] Last Admin: 07/29/21 14:36 Dose: 40 mg Documented by: Olanzapine (Olanzapine 5 Mg Tablet) 5 mg PO TID [facility] Last Admin: 07/29/21 20:51 Dose: 5 mg Documented by: Pharmacy Consult (Consult Rx Perform Med Rec) 1 each MISCELLANE ONCE PRN PRN Reason: Consult order Pharmacy Consult (Consult Rx Vancomycin Dosing) 1 each MISCELLANE DAILY PRN PRN Reason: Consult order Sodium Chloride (0.9 % Sodium Chloride Flush 3 Ml Syringe) 3 ml IVFLUSH QSHIFT [facility] Last Admin: 07/29/21 15:50 Dose: 3 ml Documented by: Thiamine HCl (Thiamine Hcl 100 Mg Tablet) 200 mg PO BID [facility] Last Admin: 07/29/21 20:51 Dose: 200 mg Documented by: Home Medications Medication Instructions Recorded Confirmed Last Taken Type acetaminophen 325 mg tablet 650 mg PO Q6H PRN 07/01/21 08/31/21 Unknown History Physical Exam Vital Signs: Vital Signs: Last Vital Signs Temp 99.0 F 07/29/21 21:55 Pulse 124 H 07/29/21 21:55 Resp 40 H 07/29/21 23:44 BP 118/76 07/29/21 21:55 Pulse Ox 93 07/29/21 21:55 Body Mass Index 23.4 Const: General: cooperative Limitations: No no limitations Eyes: General: appearance normal, both eyes and all related structures Resp: Effort & Inspection: normal respiratory effort Cardio: Rate: regular rate Rhythm: regular rhythm GI: Palpation (GI): Soft to palpation and nontender Skin: General skin exam: no rashes or lesions noted Extrem: General: Yes normal to inspection Results Labs CBC & Chem 7: 08/10/21 06:51 08/10/21 06:51 Labs: Short CBC 07/29/21 Range/Units 05:20 WBC 12.2 H (4.8-10.8) X10*3/uL Hgb 11.3 L D (12.0-16.0) g/dl Hct 37.2 D (37-47) % Plt Count 324 D (160-400) X10*3/uL BMP 07/29/21 05:20 Sodium 145 Potassium 4.0 D Chloride 109 H Carbon Dioxide 24 BUN 12 Creatinine 0.58 Calcium 10.0 D Liver Function 07/29/21 Range/Units 05:20 Albumin 3.8 (3.5-5.0) g/dL Microbiology Microbiology Results: Microbiology 07/29/21 13:44 Sputum - Suctioned Gram Stain - Final 07/17/21 09:48 Sputum - Suctioned Gram Stain - Final 07/17/21 09:48 Sputum - Suctioned Sputum Culture - Final Staphylococcus aureus 07/01/21 00:37 Blood - Venous Blood Culture - Final No growth after 5 days. 07/01/21 00:37 Blood - Venous Blood Culture - Final No growth after 5 days. 07/02/21 15:55 Urine clean catch - Urine ortiz top Urine Culture - Final Assessment and Plan (1) Encephalopathy acute: Status: Resolved (2) Acute and chronic respiratory failure with hypoxia: Status: Resolved There is concern over fungal resistant organism pneumonia MRSA Merem Vancomycin Voriconazole Await cultures.
[2021-07-30] VITALS (34 sets, daily range): BP systolic 111–143; BP diastolic 68–95; PULSE 103–140; RESP 19–38; TEMP 36.3–37.2; O2SAT 30–97
--- NOTE | 2021-07-30 | ECG_ITS ---
Test Reason : TWI Blood Pressure : / mmHG Vent. Rate : 130 BPM Atrial Rate : 130 BPM P-R Int : 116 ms QRS Dur : 074 ms QT Int : 296 ms P-R-T Axes : 067 -13 111 degrees QTc Int : 435 ms Sinus tachycardia RSR' or QR pattern in V1 suggests right ventricular conduction delay T wave abnormality, consider anterior ischemia Abnormal ECG No previous ECGs available Referred By: Dannielle Long Electronically Signed By:KATIE BROWN MD
[2021-07-30 00:10] LABS: Glucose, Whole Blood 152 mg/dL (60-115)
[2021-07-30] MEDS: propofoL 1,000 MG/100 ML VIAL 19.2 MG IVCONT ×6 (02:19→22:41)
[2021-07-30] MEDS: Midazolam HCl/NS 50 MG/50 ML PLAST..BAG IVCONT (02:20)
[2021-07-30] MEDS: methylPREDNISolone Sod Succ 40 MG/ML VIAL IVPUSH ×2 (02:21→13:02)
[2021-07-30] MEDS: fentaNYL citrate/PF 100 MCG/2 ML VIAL 50 MCG IVPUSH ×4 (04:02→19:17)
[2021-07-30] MEDS: Lactated Ringers 1,000 ML 100 ML IVCONT (04:32)
[2021-07-30 05:22] LABS: Hematocrit 28.5 % (37-47); Hemoglobin 8.7 g/dl (12.0-16.0); Imm Gran Abs Auto 0.04 X10*3/uL (0.00-0.03); Imm Gran Pct Auto 0.4 % (0.0-0.4); Lymphocytes Absolute Auto 0.7 X10*3/uL (1.2-4.9); Lymphocytes Percent Auto 6.9 % (20-40); MANUAL DIFF FLAG SCAN; Mean Corpuscular HGB Conc 30.5 g/dl (31.0-35.0); Mean Corpuscular Hemoglobin 25.2 pg (27.0-33.0); Mean Corpuscular Volume 82.6 fL (80-98); Mean Platelet Volume 9.5 fL (9.4-12.3); Monocytes Absolute Auto 0.2 X10*3/uL (0.1-1.2); Monocytes Percent Auto 2.5 % (2-11); Neutrophils Absolute Auto 8.7 X10*3/uL (2.0-8.3); Neutrophils Percent Auto 90.2 % (45-73); Platelet Count 212 X10*3/uL (160-400); Red Blood Count 3.45 X10*6/uL (4.20-5.50); Red Cell Distribution Width 18.6 % (11.0-16.0); SCAN SMEAR FLAG 1; White Blood Count 9.6 X10*3/uL (4.8-10.8)
[2021-07-30 05:25] LABS: VBG Base Excess 2.1 mmol/L; VBG HCO3 26 mmol/L (22-26); VBG pCO2 40 mmHg; VBG pH 7.42 (7.32-7.43); VBG pO2 56 mmHg
[2021-07-30 05:38] LABS: Albumin Level 3.1 g/dL (3.5-5.0); Anion Gap 11 (12-20); Blood Urea Nitrogen 10 mg/dL (9-16); C Reactive Protein 1.78 mg/dL (< or = 0.50); Calcium 8.6 mg/dL (8.4-10.2); Carbon Dioxide 26 mmol/L (22-29); Chloride 108 mmol/L (96-108); Creatinine Clr Calc Pharmacy 126.7; Estimated Glomerular Filt Rate > 60; Glucose Random 153 mg/dL (60-115); Lactate Dehydrogenase 388 U/L (122-220); Magnesium 1.7 mg/dL (1.6-2.6); Phosphorus 2.9 mg/dL (2.7-4.5); Potassium 3.6 mmol/L (3.3-5.1); Sodium 141 mmol/L (135-145)
[2021-07-30 05:39] LABS: SLIDE REVIEW VERIFIED
[2021-07-30 05:47] LABS: D Dimer 703 NG/ML
[2021-07-30 05:48] LABS: Venous Blood Gas Refer to POC result
[2021-07-30 06:08] LABS: Ferritin 151 ng/mL (10-250)
--- NOTE | 2021-07-30 07:35 | P.PNCC_ITS ---
Subjective Subjective Date of Service: 07/30/21 Interval History: 41-year-old female who has been in the hospital for over a month initially on noninvasive oxygenation stepping up to BiPAP and when she failed that intubated for 11 days extubated 4 days prior to this readmission to the ICU and was only in IMCU for less than 24 hours and clearly marked respiratory distress and effort with rising pCO2 diminished mental status and very altered chest x-ray ultimately reintubated down here emergently sputum already with 4+ polys and growing both yeast and Gram-positive cocci so so far and especially with the increase in the white count on the left shift the no to 90% polys is beginning to look like it see no it is an invasive secondary infection so were now on a combination of vancomycin meropenem and voriconazole and right now we have been weaned down to an FiO2 of 50% improvement in chest x- ray a little did a diminution in the minutes ventilatory requirement in but still sedated heart rate is down from the 170s to 120s we documented that LV function was normal and potentially hyperdynamic in but CVP which was 0-3 initially is now up to 8 so were going to reduce her IV fluid and I think at this point we are going to start tube feedings and IV insulin Critical Care Time (minutes): 45 Physical Exam Vital Signs: Vital Signs: Last Vital Signs Temp 97.7 F 07/30/21 07:00 Pulse 123 H 07/30/21 07:00 Resp 29 H 07/30/21 07:00 BP 113/73 07/30/21 07:00 Pulse Ox 95 07/30/21 07:00 Body Mass Index 23.4 Sedated and intubated but she does awaken and clearly has preserve cognitive function Urine output is improved and renal function is well preserved abdomen is benign with good bowel sounds soft no organomegaly is Cardiac exam reduced sinus tachycardia improved carotid upstrokes Chest with scattered bilateral ventilatory crackles Skin intact Objective Data Labs CBC & Chem 7: 07/30/21 05:13 07/30/21 05:13 Labs: Laboratory Results - last 24 hr 07/29/21 07/29/21 07/29/21 10:16 13:49 13:53 WBC RBC Hgb Hct MCV MCH MCHC RDW Plt Count MPV Immature Gran % (Auto) Neut % (Auto) Lymph % (Auto) [place] % (Auto) Eos % (Auto) Baso % (Auto) Lymph # (Auto) [place] # (Auto) Eos # (Auto) Baso # (Auto) Abs Immat Gran (auto) Absolute Neuts (auto) Absolute Nucleated RBC Nucleated RBC % (auto) Smear Tech's Comments D-Dimer VBG pH 7.23 L 7.30 L VBG pCO2 51 53 VBG pO2 55 49 VBG HCO3 22 26 VBG O2 Saturation 74.0 72.0 VBG Base Excess -5.8 -0.2 Sodium Potassium Chloride Carbon Dioxide Anion Gap BUN Creatinine Estim Creat Clear Calc Estimated GFR POC Glucose Random Glucose Lactic Acid 1.8 Calcium Phosphorus Magnesium Ferritin Lactate Dehydrogenase C-Reactive Protein Albumin Procalcitonin Coronavirus (PCR) Influenza Type A (PCR) Influenza Type B (PCR) RSV RNA Qual (PCR) 07/29/21 07/29/21 07/29/21 13:53 16:23 19:21 WBC RBC Hgb Hct MCV MCH MCHC RDW Plt Count MPV Immature Gran % (Auto) Neut % (Auto) Lymph % (Auto) [place] % (Auto) Eos % (Auto) Baso % (Auto) Lymph # (Auto) [place] # (Auto) Eos # (Auto) Baso # (Auto) Abs Immat Gran (auto) Absolute Neuts (auto) Absolute Nucleated RBC Nucleated RBC % (auto) Smear Tech's Comments D-Dimer VBG pH VBG pCO2 VBG pO2 VBG HCO3 VBG O2 Saturation VBG Base Excess Sodium Potassium Chloride Carbon Dioxide Anion Gap BUN Creatinine Estim Creat Clear Calc Estimated GFR POC Glucose 182 H 140 H Random Glucose Lactic Acid Calcium Phosphorus Magnesium Ferritin Lactate Dehydrogenase C-Reactive Protein Albumin Procalcitonin 0.11 Coronavirus (PCR) Influenza Type A (PCR) Influenza Type B (PCR) RSV RNA Qual (PCR) 07/29/21 07/29/21 07/30/21 19:38 23:25 05:13 WBC RBC Hgb Hct MCV MCH MCHC RDW Plt Count MPV Immature Gran % (Auto) Neut % (Auto) Lymph % (Auto) [place] % (Auto) Eos % (Auto) Baso % (Auto) Lymph # (Auto) [place] # (Auto) Eos # (Auto) Baso # (Auto) Abs Immat Gran (auto) Absolute Neuts (auto) Absolute Nucleated RBC Nucleated RBC % (auto) Smear Tech's Comments D-Dimer 703 VBG pH VBG pCO2 VBG pO2 VBG HCO3 VBG O2 Saturation VBG Base Excess Sodium Potassium Chloride Carbon Dioxide Anion Gap BUN Creatinine Estim Creat Clear Calc Estimated GFR POC Glucose 152 H Random Glucose Lactic Acid Calcium Phosphorus Magnesium Ferritin Lactate Dehydrogenase C-Reactive Protein Albumin Procalcitonin Coronavirus (PCR) POSITIVE A Influenza Type A (PCR) NEGATIVE Influenza Type B (PCR) NEGATIVE RSV RNA Qual (PCR) NEGATIVE 07/30/21 07/30/21 07/30/21 05:13 05:13 05:20 WBC 9.6 RBC 3.45 L D Hgb 8.7 L D Hct 28.5 L D MCV 82.6 MCH 25.2 L MCHC 30.5 L RDW 18.6 H Plt Count 212 D MPV 9.5 Immature Gran % (Auto) 0.4 Neut % (Auto) 90.2 H Lymph % (Auto) 6.9 L [place] % (Auto) 2.5 Eos % (Auto) 0.0 Baso % (Auto) 0.0 Lymph # (Auto) 0.7 L [place] # (Auto) 0.2 Eos # (Auto) 0.0 Baso # (Auto) 0.0 Abs Immat Gran (auto) 0.04 H Absolute Neuts (auto) 8.7 H Absolute Nucleated RBC 0.000 Nucleated RBC % (auto) 0.0 Smear Tech's Comments VERIFIED D-Dimer VBG pH 7.42 VBG pCO2 40 VBG pO2 56 VBG HCO3 26 VBG O2 Saturation 86.0 VBG Base Excess 2.1 Sodium 141 Potassium 3.6 Chloride 108 Carbon Dioxide 26 Anion Gap 11 L BUN 10 Creatinine 0.52 Estim Creat Clear Calc 126.7 Estimated GFR > 60 POC Glucose Random Glucose 153 H Lactic Acid Calcium 8.6 D Phosphorus 2.9 Magnesium 1.7 Ferritin 151 Lactate Dehydrogenase 388 H C-Reactive Protein 1.78 H Albumin 3.1 L Procalcitonin Coronavirus (PCR) Influenza Type A (PCR) Influenza Type B (PCR) RSV RNA Qual (PCR) Microbiology Microbiology Results: Microbiology 07/29/21 13:44 Sputum - Suctioned Gram Stain - Final 07/17/21 09:48 Sputum - Suctioned Gram Stain - Final 07/17/21 09:48 Sputum - Suctioned Sputum Culture - Final Staphylococcus aureus 07/01/21 00:37 Blood - Venous Blood Culture - Final No growth after 5 days. 09/24/21 00:37 Blood - Venous Blood Culture - Final No growth after 5 days. 07/02/21 15:55 Urine clean catch - Urine ortiz top Urine Culture - Final Quality Stroke Does the patient have a stroke diagnosis?: No VTE Prior VTE?: No VTE Risk Level:: Medical - moderate - high VTE Device Contraindication: Treatment Not Indicated VTE Drug Contraindication: N/A - Med Ordered Progress Note: A&P Assessment and plan (1) Encephalopathy acute: Status: Acute (2) Acute and chronic respiratory failure with hypoxia: Status: Acute (3) Acute hypercapnic respiratory failure: Status: Acute (4) Panic attack as reaction to stress: Status: Acute (5) Hypernatremia: Status: Acute (6) Hypokalemia: Status: Acute (7) Pneumomediastinum: Status: Acute (8) Anxiety: Status: Acute (9) Acute respiratory distress syndrome (ARDS) due to COVID-19 virus: Status: Acute (10) Acute respiratory failure with hypoxia: Status: Acute (11) Pneumonia due to COVID-19 virus: Status: Acute (12) COVID-19: Status: Acute (13) Breast mass: Status: Acute (14) Hypoxia: Status: Acute Assessment and Plan: IV will rest her today on the vent and for capable of weaning FiO2 to 40% and if minutes ventilatory requirements fall below 10 L will begin the weaning process on the vent I a.m. going to continue treating with with the meropenem as well as the vancomycin
[2021-07-30] MEDS: clonazePAM 1 MG TABLET PO ×2 (08:00→20:15)
[2021-07-30] MEDS: Famotidine/PF 20 MG/2 ML VIAL IVPUSH ×2 (08:00→20:15)
[2021-07-30] MEDS: Chlorhexidine Gluc Oral Rinse 15 ML MOUTHWASH BUCCAL ×3 (08:00→20:15)
[2021-07-30] MEDS: OLANZapine 5 MG TABLET PO ×3 (08:00→20:15)
[2021-07-30] MEDS: 0.9 % Sodium Chloride Flush 3 ML SYRINGE IVFLUSH (08:00)
[2021-07-30] MEDS: Enoxaparin Sodium 40 MG/0.4 ML SYRINGE SUBCUT (08:00)
[2021-07-30] MEDS: Thiamine HCL 100 MG TABLET 200 MG PO ×2 (08:00→20:15)
--- NOTE | 2021-07-30 08:02 | MHC.CM.PN ---
Received update from [facility] financial: pt is now eligible for [facility] Standard as of 06/08/21 per 's remission of paystubs. The following is the correspondence from [employer]: Just wanted to let you know that I received the pay stubs from [employer] and I was able to update their account. She is now active with [employer] standard and I was able to get her retro coverage back to 06/08/21. ID#[id number]. I will be updating the account.
[2021-07-30] MEDS: Insulin Regular/NS 100 UNIT/100 ML PLAST..BAG IVCONT (09:10)
[2021-07-30 10:00] LABS: Glucose, Whole Blood 145 mg/dL (60-115)
[2021-07-30 10:08] LABS: Glucose, Whole Blood 166 mg/dL (60-115)
[2021-07-30 11:05] LABS: Glucose, Whole Blood 158 mg/dL (60-115)
[2021-07-30] MEDS: vancomycin HCL 1,500 MG in 0.9 % Sodium Chloride 500 ML 333 MG IV (12:10)
[2021-07-30 12:33] LABS: Glucose, Whole Blood 144 mg/dL (60-115)
[2021-07-30 13:10] LABS: Glucose, Whole Blood 139 mg/dL (60-115)
[2021-07-30 14:15] LABS: Glucose, Whole Blood 134 mg/dL (60-115)
[2021-07-30 16:56] LABS: Glucose, Whole Blood 129 mg/dL (60-115)
[2021-07-30 16:56] LABS: Glucose, Whole Blood 138 mg/dL (60-115)
--- NOTE | 2021-07-30 18:08 | PC.NURSE ---
tmax 99.0, vss. Sedated on propofol and versed, grimaces to noxious stimuli, pupils reactive- sluggish. Titrated FIO2 tp 40%, pt tolerating vetn well. scant, thick, cream inline secretions Tube feedings started, glucerna 30ml/hr. Insulin gtt started and titrated off and switched to sq insulin ST on tele, u/o wnl, bath given, repo q2hr, prevalon mattress used. Family updated on phone x2.
[2021-07-30] MEDS: Insulin Lispro 100 UNIT/ML 3 ML VIAL SUBCUT (20:20)
[2021-07-30] MEDS: Lactated Ringers 1,000 ML 40 ML IVCONT (20:20)
[2021-07-30] MEDS: fentaNYL citrate/NS 1,000 MCG/100 ML PLAST..BAG 5 MCG IVCONT (20:21)
[2021-07-30 20:39] LABS: Glucose, Whole Blood 202 mg/dL (60-115)
--- NOTE | 2021-07-30 21:17 | PM.IDPN ---
Subjective Subjective Date of Service: 07/30/21 Critical Care Time (minutes): 15 Comment: She has been more stable. Her sputum shows multiple polys Gram stain shows some yeast and gram positive. Objective Data Labs CBC & Chem 7: 08/10/21 06:51 08/10/21 06:51 Labs: Laboratory Results - last 24 hr 07/29/21 07/29/21 07/30/21 19:21 23:25 05:13 WBC RBC Hgb Hct MCV MCH MCHC RDW Plt Count MPV Immature Gran % (Auto) Neut % (Auto) Lymph % (Auto) [place] % (Auto) Eos % (Auto) Baso % (Auto) Lymph # (Auto) [place] # (Auto) Eos # (Auto) Baso # (Auto) Abs Immat Gran (auto) Absolute Neuts (auto) Absolute Nucleated RBC Nucleated RBC % (auto) Smear Tech's Comments D-Dimer 703 VBG pH VBG pCO2 VBG pO2 VBG HCO3 VBG O2 Saturation VBG Base Excess Sodium Potassium Chloride Carbon Dioxide Anion Gap BUN Creatinine Estim Creat Clear Calc Estimated GFR POC Glucose 140 H 152 H Random Glucose Calcium Phosphorus Magnesium Ferritin Lactate Dehydrogenase C-Reactive Protein Albumin 07/30/21 07/30/21 07/30/21 05:13 05:13 05:20 WBC 9.6 RBC 3.45 L D Hgb 8.7 L D Hct 28.5 L D MCV 82.6 MCH 25.2 L MCHC 30.5 L RDW 18.6 H Plt Count 212 D MPV 9.5 Immature Gran % (Auto) 0.4 Neut % (Auto) 90.2 H Lymph % (Auto) 6.9 L [place] % (Auto) 2.5 Eos % (Auto) 0.0 Baso % (Auto) 0.0 Lymph # (Auto) 0.7 L [place] # (Auto) 0.2 Eos # (Auto) 0.0 Baso # (Auto) 0.0 Abs Immat Gran (auto) 0.04 H Absolute Neuts (auto) 8.7 H Absolute Nucleated RBC 0.000 Nucleated RBC % (auto) 0.0 Smear Tech's Comments VERIFIED D-Dimer VBG pH 7.42 VBG pCO2 40 VBG pO2 56 VBG HCO3 26 VBG O2 Saturation 86.0 VBG Base Excess 2.1 Sodium 141 Potassium 3.6 Chloride 108 Carbon Dioxide 26 Anion Gap 11 L BUN 10 Creatinine 0.52 Estim Creat Clear Calc 126.7 Estimated GFR > 60 POC Glucose Random Glucose 153 H Calcium 8.6 D Phosphorus 2.9 Magnesium 1.7 Ferritin 151 Lactate Dehydrogenase 388 H C-Reactive Protein 1.78 H Albumin 3.1 L 07/30/21 07/30/21 07/30/21 09:02 10:00 11:01 WBC RBC Hgb Hct MCV MCH MCHC RDW Plt Count MPV Immature Gran % (Auto) Neut % (Auto) Lymph % (Auto) [place] % (Auto) Eos % (Auto) Baso % (Auto) Lymph # (Auto) [place] # (Auto) Eos # (Auto) Baso # (Auto) Abs Immat Gran (auto) Absolute Neuts (auto) Absolute Nucleated RBC Nucleated RBC % (auto) Smear Tech's Comments D-Dimer VBG pH VBG pCO2 VBG pO2 VBG HCO3 VBG O2 Saturation VBG Base Excess Sodium Potassium Chloride Carbon Dioxide Anion Gap BUN Creatinine Estim Creat Clear Calc Estimated GFR POC Glucose 145 H 166 H 158 H Random Glucose Calcium Phosphorus Magnesium Ferritin Lactate Dehydrogenase C-Reactive Protein Albumin 07/30/21 07/30/21 07/30/21 12:13 13:04 14:02 WBC RBC Hgb Hct MCV MCH MCHC RDW Plt Count MPV Immature Gran % (Auto) Neut % (Auto) Lymph % (Auto) [place] % (Auto) Eos % (Auto) Baso % (Auto) Lymph # (Auto) [place] # (Auto) Eos # (Auto) Baso # (Auto) Abs Immat Gran (auto) Absolute Neuts (auto) Absolute Nucleated RBC Nucleated RBC % (auto) Smear Tech's Comments D-Dimer VBG pH VBG pCO2 VBG pO2 VBG HCO3 VBG O2 Saturation VBG Base Excess Sodium Potassium Chloride Carbon Dioxide Anion Gap BUN Creatinine Estim Creat Clear Calc Estimated GFR POC Glucose 144 H 139 H 134 H Random Glucose Calcium Phosphorus Magnesium Ferritin Lactate Dehydrogenase C-Reactive Protein Albumin 07/30/21 07/30/21 07/30/21 15:05 16:15 20:00 WBC RBC Hgb Hct MCV MCH MCHC RDW Plt Count MPV Immature Gran % (Auto) Neut % (Auto) Lymph % (Auto) [place] % (Auto) Eos % (Auto) Baso % (Auto) Lymph # (Auto) [place] # (Auto) Eos # (Auto) Baso # (Auto) Abs Immat Gran (auto) Absolute Neuts (auto) Absolute Nucleated RBC Nucleated RBC % (auto) Smear Tech's Comments D-Dimer VBG pH VBG pCO2 VBG pO2 VBG HCO3 VBG O2 Saturation VBG Base Excess Sodium Potassium Chloride Carbon Dioxide Anion Gap BUN Creatinine Estim Creat Clear Calc Estimated GFR POC Glucose 129 H 138 H 202 H Random Glucose Calcium Phosphorus Magnesium Ferritin Lactate Dehydrogenase C-Reactive Protein Albumin Microbiology Microbiology Results: Microbiology 07/29/21 13:54 Blood - Central Line Blood Culture - Preliminary No growth after 24 hours. 07/29/21 13:57 Blood - Central Line Blood Culture - Preliminary No growth after 24 hours. 07/29/21 13:44 Urine clean catch - Clean Catch Midstream Urine Culture - Final No growth. 07/29/21 13:44 Sputum - Suctioned Gram Stain - Final 07/29/21 13:44 Sputum - Suctioned Sputum Culture - Preliminary Normal so far. 07/17/21 09:48 Sputum - Suctioned Gram Stain - Final 07/17/21 09:48 Sputum - Suctioned Sputum Culture - Final Staphylococcus aureus 07/01/21 00:37 Blood - Venous Blood Culture - Final No growth after 5 days. 07/01/21 00:37 Blood - Venous Blood Culture - Final No growth after 5 days. 07/02/21 15:55 Urine clean catch - Urine ortiz top Urine Culture - Final Physical Exam Vital Signs: Vital Signs: Last Vital Signs Temp 98.4 F 07/30/21 21:00 Pulse 117 H 07/30/21 21:00 Resp 30 H 07/30/21 21:00 BP 133/82 07/30/21 21:00 Pulse Ox 94 07/30/21 21:00 Body Mass Index 23.4 Const: Other: vented HENMT: Head: Yes normal to inspection Mouth: Normal oral and palatal mucosa present Resp: Effort & Inspection: normal respiratory effort Cardio: Rate: regular rate Rhythm: regular rhythm GI: Palpation (GI): Soft to palpation and nontender Skin: General skin exam: no rashes or lesions noted Extrem: General: Yes normal to inspection Assessment and Plan Assessment and plan (1) Encephalopathy acute: Status: Resolved Assessment and Plan: She remains vented ,but more stable. She has fungus seen on sputum culture There could be MSSA or MRSA (2) Acute and chronic respiratory failure with hypoxia: Status: Resolved Assessment and Plan: Would continue Vancomycin,Merem and Voriconazole cover aspergillosis and other complications of COVID which can cause worsening lung infection. Time Spent With Patient Time: Total time spent is greater than 50% in coordination of care (as documented) at patient's floor/unit and/or counseling patient: Time with patient: 15 - 24 minutes
[2021-07-30 22:45] LABS: Vancomycin Trough 18.4 mcg/mL (10.0-20.0)
[2021-07-30 23:08] LABS: Troponin-I High Sensitivity 15.6 ng/L (<3.5-17.0)
[2021-07-30] MEDS: dexmedeTOMIDidine HCL/NS 400 MCG/100 ML INFUS..BTL 8 MCG IVCONT (23:10)
[2021-07-30] MEDS: vancomycin HCL 750 MG in 0.9 % Sodium Chloride 250 ML 265 MG IV (23:12)
[2021-07-31] VITALS (34 sets, daily range): BP systolic 97–157; BP diastolic 54–85; PULSE 62–123; RESP 16–28; TEMP 36.6–37.5; O2SAT 90–98
--- NOTE | 2021-07-31 00:06 | PC.NURSE ---
Addendum entered by Jose Adams RN 07/31/21 03:14: pt was observed to be stacking breaths after drawing trop. Pt was had low minute and tidal volumes with vent consistently alarming. RT notified and settings were changed to PCV, R18, 20/8, fiO2 40%, tivdal volumes have been 4-500, minute volume of 8. pt is synchronus and sedated with prop, fentanyl, and precedex. Not restless, VS ar WNL at this time. Repeat CXR ordered for 0500 Original Note: pt became anxious and resistent to sedation. Pt moving arms and legs and reaching for ET equipment. Pt on prop @50 and versed- and was having minimal effect., elevated resp(30s) and HR (120's-140s). PRN fentanyl was utilized with minimal effect. fentanyl drip Started and with minimal improvement patient was still moving. Hr and resp was elevated. EKG and trop were obtained and T-wave inversions were noted. Repeat trop @ 0200 waiting on results ffrom first trop. Precedex was added and patient is more adequately sedated, not as restless or anxious. HR has dropped to a more normal range (90s), respiratory rate has dropped as well, pt is no longer restless. Provider was updated and communicated with frequently and was at bedside.
[2021-07-31] MEDS: propofoL 1,000 MG/100 ML VIAL 19.2 MG IVCONT ×3 (01:55→08:43)
[2021-07-31] MEDS: methylPREDNISolone Sod Succ 40 MG/ML VIAL IVPUSH ×2 (01:55→14:16)
[2021-07-31 02:29] LABS: Troponin-I High Sensitivity 13.2 ng/L (<3.5-17.0)
[2021-07-31] MEDS: Insulin Lispro 100 UNIT/ML 3 ML VIAL SUBCUT ×3 (03:36→22:31)
[2021-07-31 04:04] LABS: Glucose, Whole Blood 190 mg/dL (60-115)
[2021-07-31] MEDS: fentaNYL citrate/NS 1,000 MCG/100 ML PLAST..BAG 10 MCG IVCONT (05:23)
[2021-07-31 05:27] LABS: VBG Base Excess 4.7 mmol/L; VBG HCO3 29 mmol/L (22-26); VBG pCO2 46 mmHg; VBG pH 7.41 (7.32-7.43); VBG pO2 44 mmHg
[2021-07-31 05:29] LABS: MANUAL DIFF FLAG NO
[2021-07-31 05:42] LABS: Hematocrit 27.1 % (37-47); Imm Gran Abs Auto 0.03 X10*3/uL (0.00-0.03); Imm Gran Pct Auto 0.6 % (0.0-0.4); Lymphocytes Absolute Auto 0.6 X10*3/uL (1.2-4.9); Lymphocytes Percent Auto 11.5 % (20-40); Mean Corpuscular HGB Conc 29.5 g/dl (31.0-35.0); Mean Corpuscular Hemoglobin 25.1 pg (27.0-33.0); Mean Platelet Volume 10.3 fL (9.4-12.3); Monocytes Absolute Auto 0.2 X10*3/uL (0.1-1.2); Neutrophils Percent Auto 83.9 % (45-73); Platelet Count 165 X10*3/uL (160-400); Red Blood Count 3.19 X10*6/uL (4.20-5.50); Red Cell Distribution Width 18.5 % (11.0-16.0); White Blood Count 4.8 X10*3/uL (4.8-10.8)
[2021-07-31 06:11] LABS: Anion Gap 9 (12-20); Blood Urea Nitrogen 13 mg/dL (9-16); Calcium 8.8 mg/dL (8.4-10.2); Carbon Dioxide 29 mmol/L (22-29); Chloride 110 mmol/L (96-108); Creatinine Clr Calc Pharmacy 119.9; Estimated Glomerular Filt Rate > 60; Glucose Random 205 mg/dL (60-115); Magnesium 1.8 mg/dL (1.6-2.6); Phosphorus 2.9 mg/dL (2.7-4.5); Potassium 3.6 mmol/L (3.3-5.1); Sodium 144 mmol/L (135-145)
[2021-07-31 06:34] LABS: Venous Blood Gas Refer to POC result
[2021-07-31] MEDS: dexmedeTOMIDidine HCL/NS 400 MCG/100 ML INFUS..BTL 11.2 MCG IVCONT (08:07)
[2021-07-31] MEDS: Thiamine HCL 100 MG TABLET 200 MG PO ×2 (08:14→20:53)
[2021-07-31] MEDS: Chlorhexidine Gluc Oral Rinse 15 ML MOUTHWASH BUCCAL ×3 (08:14→20:53)
[2021-07-31] MEDS: Venlafaxine HCl ER 37.5 MG CAP.ER.24H PO (08:14)
[2021-07-31] MEDS: clonazePAM 1 MG TABLET PO ×2 (08:14→20:53)
[2021-07-31] MEDS: Famotidine/PF 20 MG/2 ML VIAL IVPUSH ×2 (08:14→20:53)
[2021-07-31] MEDS: Enoxaparin Sodium 40 MG/0.4 ML SYRINGE SUBCUT (08:14)
[2021-07-31 10:33] LABS: Vancomycin Random 13.3 mcg/mL (15-20)
[2021-07-31] MEDS: Albuterol/Iprat 2.5/0.5MG 3 ML AMPUL.NEB INHALE ×3 (11:36→20:31)
[2021-07-31] MEDS: vancomycin HCL 1,000 MG in 0.9 % Sodium Chloride 250 ML 270 MG IV ×2 (12:04→22:31)
--- NOTE | 2021-07-31 14:07 | MHC.CM.PN ---
Pt continues in ICU after reintubation d/t worsening respiratory fx: less sedation this round but continues with high anxiety. Pt now has [facility] standard/[facility]NE be healthy plan which will assist with post d/c needs. Referred to [facility] at this time d/t high probability of ongoing respiratory issues (? trach) and compounding anxiety. CM will follow.
[2021-07-31] MEDS: dexmedeTOMIDidine HCL/NS 400 MCG/100 ML INFUS..BTL 24 MCG IVCONT ×3 (14:29→22:25)
[2021-07-31 15:34] LABS: Glucose, Whole Blood 212 mg/dL (60-115)
--- NOTE | 2021-07-31 15:48 | P.PNCC_ITS ---
Subjective Subjective Date of Service: 07/31/21 Interval History: 41-year-old female with no prior history but over a month in the hospital now with COVID-19 pneumonitis/ARDS and I had reintubated her this week following 11 days of continuous intubation and that followed 2 and half to 3 weeks of noninvasive in including positive-pressure ventilation and this time she redeveloped in a bilateral but looked like either atelectasis and or in interstitial infiltrates and I feared nosocomial pneumonia and she came down in extremis with a with acute hypoxemic respiratory failure but also can at elevating pCO2 with altered mental status and in fact on arousable and needed emergent intubation and then placement of central line in the left internal jugular now rid residing in the right atrium and she knew issue we had a CVP of 0 requiring rapid fluid resuscitation but preserving renal function and urine output and over the course here being covered extensively for nosocomial pneumonia including with voriconazole she came around very nicely while she is resting and not agitated her minutes ventilatory requirements are about 7 and half to 8 L and FiO2 is down to 40% when awake she hyperventilates and she does develop a little bit of air trapping as a result and then of she drops her oxygen saturation but right now her oxygen saturations are 92% on FiO2 of 40% and she has spent the entire day today on a pressure support trial of 10/5 with tidal volumes in the mid 500s and generating about 9 L of minute ventilation and looking relatively comfortable but again the panic issue is what sets everything off and she just does not look like she is quite there definitely still panick ing despite beginning ASN RI, namely venlafaxine in addition to the dexmedetomidine and just a 25 micrograms/hour dose of fentanyl now the propofol is off and thus far she still remains on the 10/5 pressure support and at thing for the night [facility] convert her over to a pressure control in case she has a deeper sleep Critical Care Time (minutes): 45 Physical Exam Vital Signs: Vital Signs: Last Vital Signs Temp 99.3 F 07/31/21 14:59 Pulse 74 07/31/21 15:11 Resp 20 07/31/21 14:59 BP 140/75 H 07/31/21 14:59 Pulse Ox 92 07/31/21 14:59 Body Mass Index 23.4 Awakens with appropriate cognitive function and nonfocal Cardiac exam confirmed by echo hyperdynamic with globally normal systolic wall motion of the left ventricle and right ventricle as well is normal and no primary valve or pericardial disease Chest much clear by chest x-ray and there are no adventitious sounds Abdomen benign Skin intact Objective Data Labs CBC & Chem 7: 07/31/21 05:21 07/31/21 05:21 Labs: Laboratory Results - last 24 hr 07/30/21 07/30/21 07/30/21 15:05 16:15 20:00 WBC RBC Hgb Hct MCV MCH MCHC RDW Plt Count MPV Immature Gran % (Auto) Neut % (Auto) Lymph % (Auto) [place] % (Auto) Eos % (Auto) Baso % (Auto) Lymph # (Auto) [place] # (Auto) Eos # (Auto) Baso # (Auto) Abs Immat Gran (auto) Absolute Neuts (auto) Absolute Nucleated RBC Nucleated RBC % (auto) VBG pH VBG pCO2 VBG pO2 VBG HCO3 VBG O2 Saturation VBG Base Excess Sodium Potassium Chloride Carbon Dioxide Anion Gap BUN Creatinine Estim Creat Clear Calc Estimated GFR POC Glucose 129 H 138 H 202 H Random Glucose Calcium Phosphorus Magnesium Troponin I High Sens Albumin Vancomycin Trough Random Vancomycin 07/30/21 07/30/21 07/31/21 21:58 22:40 02:03 WBC RBC Hgb Hct MCV MCH MCHC RDW Plt Count MPV Immature Gran % (Auto) Neut % (Auto) Lymph % (Auto) [place] % (Auto) Eos % (Auto) Baso % (Auto) Lymph # (Auto) [place] # (Auto) Eos # (Auto) Baso # (Auto) Abs Immat Gran (auto) Absolute Neuts (auto) Absolute Nucleated RBC Nucleated RBC % (auto) VBG pH VBG pCO2 VBG pO2 VBG HCO3 VBG O2 Saturation VBG Base Excess Sodium Potassium Chloride Carbon Dioxide Anion Gap BUN Creatinine Estim Creat Clear Calc Estimated GFR POC Glucose Random Glucose Calcium Phosphorus Magnesium Troponin I High Sens 15.6 D 13.2 Albumin Vancomycin Trough 18.4 Random Vancomycin 07/31/21 07/31/21 07/31/21 03:33 05:20 05:21 WBC 4.8 RBC 3.19 L Hgb 8.0 L Hct 27.1 L MCV 85.0 MCH 25.1 L MCHC 29.5 L RDW 18.5 H Plt Count 165 MPV 10.3 Immature Gran % (Auto) 0.6 H Neut % (Auto) 83.9 H Lymph % (Auto) 11.5 L [place] % (Auto) 4.0 Eos % (Auto) 0.0 Baso % (Auto) 0.0 Lymph # (Auto) 0.6 L [place] # (Auto) 0.2 Eos # (Auto) 0.0 Baso # (Auto) 0.0 Abs Immat Gran (auto) 0.03 Absolute Neuts (auto) 4.0 Absolute Nucleated RBC 0.000 Nucleated RBC % (auto) 0.0 VBG pH 7.41 VBG pCO2 46 VBG pO2 44 VBG HCO3 29 H VBG O2 Saturation 71.0 VBG Base Excess 4.7 Sodium Potassium Chloride Carbon Dioxide Anion Gap BUN Creatinine Estim Creat Clear Calc Estimated GFR POC Glucose 190 H Random Glucose Calcium Phosphorus Magnesium Troponin I High Sens Albumin Vancomycin Trough Random Vancomycin 07/31/21 07/31/21 07/31/21 05:21 10:00 10:34 WBC RBC Hgb Hct MCV MCH MCHC RDW Plt Count MPV Immature Gran % (Auto) Neut % (Auto) Lymph % (Auto) [place] % (Auto) Eos % (Auto) Baso % (Auto) Lymph # (Auto) [place] # (Auto) Eos # (Auto) Baso # (Auto) Abs Immat Gran (auto) Absolute Neuts (auto) Absolute Nucleated RBC Nucleated RBC % (auto) VBG pH VBG pCO2 VBG pO2 VBG HCO3 VBG O2 Saturation VBG Base Excess Sodium 144 Potassium 3.6 Chloride 110 H Carbon Dioxide 29 Anion Gap 9 L BUN 13 Creatinine 0.55 Estim Creat Clear Calc 119.9 Estimated GFR > 60 POC Glucose 212 H Random Glucose 205 H Calcium 8.8 Phosphorus 2.9 Magnesium 1.8 Troponin I High Sens Albumin 3.0 L Vancomycin Trough Random Vancomycin 13.3 L Microbiology Microbiology Results: Microbiology 07/29/21 13:44 Sputum - Suctioned Gram Stain - Final 07/29/21 13:44 Sputum - Suctioned Sputum Culture - Preliminary Filamentous fungus 07/29/21 13:54 Blood - Central Line Blood Culture - Preliminary No growth after 24 hours. 07/29/21 13:57 Blood - Central Line Blood Culture - Preliminary No growth after 24 hours. 07/29/21 13:44 Urine clean catch - Clean Catch Midstream Urine Culture - Final No growth. 07/17/21 09:48 Sputum - Suctioned Gram Stain - Final 07/17/21 09:48 Sputum - Suctioned Sputum Culture - Final Staphylococcus aureus 07/01/21 00:37 Blood - Venous Blood Culture - Final No growth after 5 days. 07/01/21 00:37 Blood - Venous Blood Culture - Final No growth after 5 days. 07/02/21 15:55 Urine clean catch - Urine ortiz top Urine Culture - Final Quality Stroke Does the patient have a stroke diagnosis?: No VTE Prior VTE?: No VTE Risk Level:: Medical - moderate - high VTE Device Contraindication: Treatment Not Indicated VTE Drug Contraindication: N/A - Med Ordered Progress Note: A&P Assessment and plan (1) Encephalopathy acute: Status: Acute (2) Acute and chronic respiratory failure with hypoxia: Status: Acute (3) Acute hypercapnic respiratory failure: Status: Acute (4) Panic attack as reaction to stress: Status: Acute (5) Hypernatremia: Status: Acute (6) Hypokalemia: Status: Acute (7) Pneumomediastinum: Status: Acute (8) Anxiety: Status: Acute (9) Acute respiratory distress syndrome (ARDS) due to COVID-19 virus: Status: Acute (10) Acute respiratory failure with hypoxia: Status: Acute (11) Pneumonia due to COVID-19 virus: Status: Acute (12) COVID-19: Status: Acute (13) Breast mass: Status: Acute (14) Hypoxia: Status: Acute Assessment and Plan: All told doing well and would be ready for extubation but I fear this on Sunday afternoon because of her panic attack issue and I need to wean her on to BiPAP at this point which I know the her psyche does not tolerate all that well so I think I am going to hold off on that until Sunday most especially in case we need psychiatric help
[2021-07-31] MEDS: 0.9 % Sodium Chloride Flush 3 ML SYRINGE IVFLUSH ×2 (16:05→23:13)
[2021-07-31 16:36] LABS: Glucose, Whole Blood 158 mg/dL (60-115)
--- NOTE | 2021-07-31 18:22 | PC.NURSE ---
tmax 99.3, vss, SR on tele. Sedation switched to precedex and fentanyl for trial of weaning pt-see EMAR. Pt able to open eyes to voice, follows commands- mildly anxious, nods yes/no. Pt was on pressure support 10/5- 40%fio2 from about 1115am- 1600. pt tolerated well, tv 400-500. Pt switched to pc rate 16, 15/5 40% and tolerating well. Tube feeds on hold for day incase of extubation. Black output wnl, bath given, repo q2hr, prevalon mattress and airtap bed. family updated throughout day of plan of care and facetime set up.
[2021-07-31] MEDS: Lactated Ringers 1,000 ML 40 ML IVCONT (20:47)
[2021-07-31 22:47] LABS: Glucose, Whole Blood 289 mg/dL (60-115)
[2021-07-31] MEDS: propofoL 1,000 MG/100 ML VIAL 7.68 MG IVCONT (23:13)
[2021-08-01] VITALS (30 sets, daily range): BP systolic 106–179; BP diastolic 62–86; PULSE 49–91; RESP 15–25; TEMP 37–37.9; O2SAT 90–100; BMI 23.4
[2021-08-01] MEDS: fentaNYL citrate/NS 1,000 MCG/100 ML PLAST..BAG 2.5 MCG IVCONT (01:59)
[2021-08-01] MEDS: methylPREDNISolone Sod Succ 40 MG/ML VIAL IVPUSH ×2 (01:59→08:19)
[2021-08-01] MEDS: propofoL 1,000 MG/100 ML VIAL 15.36 MG IVCONT ×2 (02:17→08:10)
[2021-08-01] MEDS: dexmedeTOMIDidine HCL/NS 400 MCG/100 ML INFUS..BTL 24 MCG IVCONT (02:17)
--- NOTE | 2021-08-01 03:00 | PC.NURSE ---
Assumed care of pt at 1900. Pt on pressure control vent settings. Became very anxious and was trying to climb oob while on precedex and fentanyl drips. Propofol was started with good effect. Vital signs stable. Heart rate was elevated to 120's-130's but came down after propofol was started. Resp rate was elevated to 30's but also came down to 22-24 after propofol was started. U/O good, 50-150 ml/hr.
[2021-08-01 04:51] LABS: Glucose, Whole Blood 192 mg/dL (60-115)
[2021-08-01] MEDS: Insulin Lispro 100 UNIT/ML 3 ML VIAL SUBCUT ×3 (04:52→15:23)
[2021-08-01 05:18] LABS: MANUAL DIFF FLAG NO
[2021-08-01 05:23] LABS: Basophils Percent Auto 0.1 % (0-2); Hematocrit 26.4 % (37-47); Hemoglobin 8.1 g/dl (12.0-16.0); Imm Gran Pct Auto 1.5 % (0.0-0.4); Lymphocytes Absolute Auto 0.4 X10*3/uL (1.2-4.9); Lymphocytes Percent Auto 5.6 % (20-40); Mean Corpuscular HGB Conc 30.7 g/dl (31.0-35.0); Mean Corpuscular Hemoglobin 25.2 pg (27.0-33.0); Mean Corpuscular Volume 82.2 fL (80-98); Monocytes Absolute Auto 0.2 X10*3/uL (0.1-1.2); Monocytes Percent Auto 3.5 % (2-11); Neutrophils Absolute Auto 6.1 X10*3/uL (2.0-8.3); Neutrophils Percent Auto 89.3 % (45-73); Platelet Count 179 X10*3/uL (160-400); Red Blood Count 3.21 X10*6/uL (4.20-5.50); Red Cell Distribution Width 18.5 % (11.0-16.0); White Blood Count 6.8 X10*3/uL (4.8-10.8)
[2021-08-01 05:26] LABS: VBG Base Excess 7.9 mmol/L; VBG HCO3 32 mmol/L (22-26); VBG pCO2 46 mmHg; VBG pH 7.45 (7.32-7.43); VBG pO2 45 mmHg
[2021-08-01 05:36] LABS: Venous Blood Gas Refer to POC result
[2021-08-01 05:49] LABS: Albumin Level 3.2 g/dL (3.5-5.0); Anion Gap 10 (12-20); Blood Urea Nitrogen 12 mg/dL (9-16); Calcium 8.6 mg/dL (8.4-10.2); Carbon Dioxide 30 mmol/L (22-29); Chloride 110 mmol/L (96-108); Creatinine Clr Calc Pharmacy 115.7; Estimated Glomerular Filt Rate > 60; Glucose Random 202 mg/dL (60-115); Magnesium 1.8 mg/dL (1.6-2.6); Phosphorus 3.3 mg/dL (2.7-4.5); Potassium 3.4 mmol/L (3.3-5.1); Sodium 147 mmol/L (135-145)
[2021-08-01] MEDS: dexmedeTOMIDidine HCL/NS 400 MCG/100 ML INFUS..BTL 20.8 MCG IVCONT ×3 (06:06→15:21)
[2021-08-01] MEDS: Albuterol/Iprat 2.5/0.5MG 3 ML AMPUL.NEB INHALE (07:46)
[2021-08-01] MEDS: Venlafaxine HCl ER 37.5 MG CAP.ER.24H PO (08:09)
[2021-08-01] MEDS: clonazePAM 1 MG TABLET PO (08:09)
[2021-08-01] MEDS: Famotidine/PF 20 MG/2 ML VIAL IVPUSH (08:09)
[2021-08-01] MEDS: Thiamine HCL 100 MG TABLET 200 MG PO (08:09)
[2021-08-01] MEDS: 0.9 % Sodium Chloride Flush 3 ML SYRINGE IVFLUSH ×3 (08:09→23:20)
[2021-08-01] MEDS: Enoxaparin Sodium 40 MG/0.4 ML SYRINGE SUBCUT (08:10)
[2021-08-01] MEDS: Chlorhexidine Gluc Oral Rinse 15 ML MOUTHWASH BUCCAL (08:10)
[2021-08-01 10:21] LABS: Glucose, Whole Blood 190 mg/dL (60-115)
--- NOTE | 2021-08-01 11:07 | P.PNCC_ITS ---
Subjective Subjective Date of Service: 08/01/21 Interval History: 41-year-old lady was no past medical history, not vaccinated for COVID-19, admitted on 06/30/2020 his dyspnea and hypoxemia and a one-week history of COVID-19 symptoms. Patient has been initially admitted to [facility] and treated with dexamethasone. Her hospital course was significant for progressive hypoxemia requiring high-flow nasal cannula and 100% non-rebreather. On 07/02/2021 she remained persistently hypoxemic despite utilization of both high-flow nasal cannula at 100% and 100% non-rebreather and at that time was transferred to intensive care unit for noninvasive positive pressure ventilation support. Her hospital course is further complicated by pneumomediastinum with subsequent resolution, critical illness myopathy and encephalopathy, and worsening hypoxemia requiring intubation on 07/15/2021, extubated on 07/25/2021 and transferred to [facility]. On 07/29 patient requiring re-intubation for worsening hypoxemia, likely secondary to an aspiration event. Her sputum culture is growing filamentous fungus, likely Aspergillus, covered by empiric voriconazole. No events overnight. Extubated this a.m.. Critical Care Time (minutes): 45 Physical Exam Vital Signs: Vital Signs: Last Vital Signs Temp 99.9 F 08/01/21 10:00 Pulse 79 08/01/21 10:00 Resp 25 H 08/01/21 10:00 BP 172/86 H 08/01/21 10:00 Pulse Ox 96 08/01/21 10:00 Body Mass Index 23.4 Const: General: no acute distress, awake and confusion Orientation/consciousness: confusion Eyes: Sclerae: sclerae normal EOM: EOMs intact bilaterally Neck: Neck: Yes no lymphadenopathy, Yes trachea midline and Yes supple Resp: Effort & Inspection: normal respiratory effort and no respiratory distress Auscultation: crackles (Bibasilar) Cardio: Rate: regular rate Rhythm: regular rhythm Heart sounds: no gallops, no murmurs and no rubs GI: Palpation (GI): Soft to palpation and Other GI palpation findings present ( Nontender) Auscultation: normal bowel sounds Neuro: General: confusion Extrem: General: Yes no pedal edema, No clubbing and No cyanosis Objective Data Labs CBC & Chem 7: 08/01/21 05:12 08/01/21 05:12 Labs: Laboratory Results - last 24 hr 10/24/21 10/24/21 10/24/21 10:34 16:06 22:27 WBC RBC Hgb Hct MCV MCH MCHC RDW Plt Count MPV Immature Gran % (Auto) Neut % (Auto) Lymph % (Auto) [place] % (Auto) Eos % (Auto) Baso % (Auto) Lymph # (Auto) [place] # (Auto) Eos # (Auto) Baso # (Auto) Abs Immat Gran (auto) Absolute Neuts (auto) Absolute Nucleated RBC Nucleated RBC % (auto) VBG pH VBG pCO2 VBG pO2 VBG HCO3 VBG O2 Saturation VBG Base Excess Sodium Potassium Chloride Carbon Dioxide Anion Gap BUN Creatinine Estim Creat Clear Calc Estimated GFR POC Glucose 212 H 158 H 289 H Random Glucose Calcium Phosphorus Magnesium Albumin 08/01/21 08/01/21 08/01/21 04:46 05:12 05:12 WBC 6.8 RBC 3.21 L Hgb 8.1 L Hct 26.4 L MCV 82.2 MCH 25.2 L MCHC 30.7 L RDW 18.5 H Plt Count 179 MPV 10.0 Immature Gran % (Auto) 1.5 H Neut % (Auto) 89.3 H Lymph % (Auto) 5.6 L [place] % (Auto) 3.5 Eos % (Auto) 0.0 Baso % (Auto) 0.1 Lymph # (Auto) 0.4 L [place] # (Auto) 0.2 Eos # (Auto) 0.0 Baso # (Auto) 0.0 Abs Immat Gran (auto) 0.10 H Absolute Neuts (auto) 6.1 Absolute Nucleated RBC 0.000 Nucleated RBC % (auto) 0.0 VBG pH VBG pCO2 VBG pO2 VBG HCO3 VBG O2 Saturation VBG Base Excess Sodium 147 H Potassium 3.4 Chloride 110 H Carbon Dioxide 30 H Anion Gap 10 L BUN 12 Creatinine 0.57 Estim Creat Clear Calc 115.7 Estimated GFR > 60 POC Glucose 192 H Random Glucose 202 H Calcium 8.6 Phosphorus 3.3 Magnesium 1.8 Albumin 3.2 L 08/01/21 08/01/21 05:20 10:16 WBC RBC Hgb Hct MCV MCH MCHC RDW Plt Count MPV Immature Gran % (Auto) Neut % (Auto) Lymph % (Auto) [place] % (Auto) Eos % (Auto) Baso % (Auto) Lymph # (Auto) [place] # (Auto) Eos # (Auto) Baso # (Auto) Abs Immat Gran (auto) Absolute Neuts (auto) Absolute Nucleated RBC Nucleated RBC % (auto) VBG pH 7.45 H VBG pCO2 46 VBG pO2 45 VBG HCO3 32 H VBG O2 Saturation 71.0 VBG Base Excess 7.9 Sodium Potassium Chloride Carbon Dioxide Anion Gap BUN Creatinine Estim Creat Clear Calc Estimated GFR POC Glucose 190 H Random Glucose Calcium Phosphorus Magnesium Albumin Microbiology Microbiology Results: Microbiology 07/29/21 13:44 Sputum - Suctioned Gram Stain - Final 07/29/21 13:44 Sputum - Suctioned Sputum Culture - Preliminary Filamentous fungus 07/29/21 13:54 Blood - Central Line Blood Culture - Preliminary No growth after 48 hours. 07/29/21 13:57 Blood - Central Line Blood Culture - Preliminary No growth after 48 hours. 07/29/21 13:44 Urine clean catch - Clean Catch Midstream Urine Culture - Final No growth. 07/17/21 09:48 Sputum - Suctioned Gram Stain - Final 07/17/21 09:48 Sputum - Suctioned Sputum Culture - Final Staphylococcus aureus 07/01/21 00:37 Blood - Venous Blood Culture - Final No growth after 5 days. 07/01/21 00:37 Blood - Venous Blood Culture - Final No growth after 5 days. 07/02/21 15:55 Urine clean catch - Urine ortiz top Urine Culture - Final Quality Stroke Does the patient have a stroke diagnosis?: No VTE Prior VTE?: No VTE Risk Level:: Medical - moderate - high VTE Device Contraindication: Treatment Not Indicated VTE Drug Contraindication: N/A - Med Ordered Progress Note: A&P Assessment and plan (1) Encephalopathy acute: Status: Acute Assessment and Plan: Assessment: 41-year-old lady admitted with acute hypoxic respiratory failure secondary to COVID-19 ARDS, eventually requiring ventilatory support, now extubated. Plan: Neuro: With significant general anxiety and critical illness encephalopathy component. Continue with anxiolytics. Empiric trial of Lamictal. Cardiac: No acute issues. Pulmonary: Acute hypoxic respiratory failure secondary to COVID-19 ARDS, further complicated by an aspiration event requiring re-intubation. Extubated this a.m.. Continue to titrate off supplemental oxygen as tolerated. Renal: No acute issues. Endo: No acute issues. GI: No acute issues. ID: COVID 19, continue to taper off Solu-Medrol. Aspergillosis sputum, empirically covered with voriconazole. Heme/Onc: No acute issues. Psych: No acute issues. Miscellaneous: No acute issues. Prophylaxis: Lovenox Diet: Pending swallow evaluation Critical care time spent: 45 minutes (2) Acute and chronic respiratory failure with hypoxia: Status: Acute (3) Anxiety: Status: Acute (4) COVID-19: Status: Acute
--- NOTE | 2021-08-01 12:52 | PC.NURSE ---
0947 propofol and fentanyl paused, precedex at 1.3mcg/kg/hr, 1029 pt was awake following commands positive cough/gag. Pt was extubated with RT and MD at bedside with this RN at 1029. Pt was able to weakly cough and bring up a scant amt of sputum. Placed on 7L/min [facility] SaO2 95% at this time. Interpretor was utilized, pt is oriented x3, denies pain. Omar has been updated today, Bed locked and in lowest position, high fowlers. Lung sound fine crackles in right lower lobe that were present pre extubation.
[2021-08-01 15:52] LABS: Glucose, Whole Blood 189 mg/dL (60-115)
[2021-08-01] MEDS: lamoTRIgine 25 MG TABLET 50 MG PO (20:22)
[2021-08-01] MEDS: dexmedeTOMIDidine HCL/NS 400 MCG/100 ML INFUS..BTL 12.8 MCG IVCONT (21:41)
[2021-08-01 21:45] LABS: Glucose, Whole Blood 152 mg/dL (60-115)
[2021-08-02] VITALS (25 sets, daily range): BP systolic 121–152; BP diastolic 64–97; PULSE 50–129; RESP 16–37; TEMP 37.1–38; O2SAT 90–100
--- NOTE | 2021-08-02 02:54 | PC.NURSE ---
Pt with no resp difficulties overnight. O2 on via mccann cannula at 5L Pt also has ventimask at 55%. SHe feels better with the mask on. At the start of this shift, at 1900, pt had mccann cannula at 13 L with the ventimask. The mccann cannula was decreased to 7L and then 5L. Slight shortness of breath with activity. SHe is calm on precedex drip at 0.7 mcg/kg/min. Able to do incentive spirometer up to 250 ml. She is taking PO fluids well. Monitor shows SB-SR, rate 50-70. Bp stable. Low grade temp 99.5 core.
[2021-08-02 05:19] LABS: VBG Base Excess 12.4 mmol/L; VBG HCO3 36 mmol/L (22-26); VBG pCO2 46 mmHg; VBG pO2 46 mmHg
[2021-08-02 05:23] LABS: MANUAL DIFF FLAG NO
[2021-08-02 05:26] LABS: Eosinophils Percent Auto 0.1 % (0-4); Hematocrit 26.8 % (37-47); Hemoglobin 8.1 g/dl (12.0-16.0); Imm Gran Abs Auto 0.08 X10*3/uL (0.00-0.03); Lymphocytes Absolute Auto 1.6 X10*3/uL (1.2-4.9); Lymphocytes Percent Auto 20.7 % (20-40); Mean Corpuscular HGB Conc 30.2 g/dl (31.0-35.0); Mean Corpuscular Hemoglobin 24.9 pg (27.0-33.0); Mean Corpuscular Volume 82.5 fL (80-98); Mean Platelet Volume 10.2 fL (9.4-12.3); Monocytes Absolute Auto 0.5 X10*3/uL (0.1-1.2); Monocytes Percent Auto 6.5 % (2-11); NRBC Pct Auto 0.3 /100WBC (0.0-0.2); Neutrophils Absolute Auto 5.6 X10*3/uL (2.0-8.3); Neutrophils Percent Auto 71.7 % (45-73); Platelet Count 190 X10*3/uL (160-400); Red Blood Count 3.25 X10*6/uL (4.20-5.50); Red Cell Distribution Width 18.1 % (11.0-16.0); White Blood Count 7.8 X10*3/uL (4.8-10.8)
[2021-08-02 05:45] LABS: Albumin Level 3.1 g/dL (3.5-5.0); Anion Gap 10 (12-20); Blood Urea Nitrogen 11 mg/dL (9-16); Calcium 8.5 mg/dL (8.4-10.2); Carbon Dioxide 33 mmol/L (22-29); Chloride 105 mmol/L (96-108); Creatinine Clr Calc Pharmacy 124.4; Estimated Glomerular Filt Rate > 60; Glucose Random 130 mg/dL (60-115); Magnesium 1.7 mg/dL (1.6-2.6); Phosphorus 2.5 mg/dL (2.7-4.5); Sodium 145 mmol/L (135-145)
[2021-08-02] MEDS: Potassium Chloride Packet 20 MEQ PACKET 40 MEQ PO (06:42)
[2021-08-02] MEDS: dexmedeTOMIDidine HCL/NS 400 MCG/100 ML INFUS..BTL 6.4 MCG IVCONT (06:43)
[2021-08-02 06:50] LABS: Venous Blood Gas Refer to POC result
[2021-08-02 07:58] LABS: Glucose, Whole Blood 110 mg/dL (60-115)
[2021-08-02] MEDS: lamoTRIgine 25 MG TABLET 50 MG PO ×2 (08:11→19:25)
[2021-08-02] MEDS: Magnesium Sulfate/H2O 2 GM/50 ML PIGGYBACK IV (08:11)
[2021-08-02] MEDS: Enoxaparin Sodium 40 MG/0.4 ML SYRINGE SUBCUT (08:11)
[2021-08-02] MEDS: methylPREDNISolone Sod Succ 40 MG/ML VIAL IVPUSH (08:12)
[2021-08-02] MEDS: Potassium Phosphate 30 MMOL in 0.9 % Sodium Chloride 500 ML 85 MMOL IV (08:17)
--- NOTE | 2021-08-02 09:57 | MHC.CLN ---
F/U PT EXTUBATED 08/01 NPO PENDING SWALLOW EVAL WHEN DIET TO ADVANCE; RECOMMEND ADDING SUPPLEMENT TO INCREASE KCALS FOLLOWING
--- NOTE | 2021-08-02 10:04 | MHC.CM.PN ---
Pt has been extubated and is on high O2 but stable. Desats with any activity: plans are to wean off of Precedex in anticipation of transferring to [facility] on 08/03. Pt on Lamictal and doing better with anxiety. Broad referrals made to STR as pt now has [facility]. She is extremely deconditioned and will need PT/OT and possible psych prior to return to home. Will await [facility] acceptance vs [facility].
--- NOTE | 2021-08-02 10:35 | P.PNCC_ITS ---
Subjective Subjective Date of Service: 08/02/21 Interval History: 41-year-old lady was no past medical history, not vaccinated for COVID-19, admitted on 06/30/2020 his dyspnea and hypoxemia and a one-week history of COVID-19 symptoms. Patient has been initially admitted to [facility] and treated with dexamethasone. Her hospital course was significant for progressive hypoxemia requiring high-flow nasal cannula and 100% non-rebreather. On 07/02/2021 she remained persistently hypoxemic despite utilization of both high-flow nasal cannula at 100% and 100% non-rebreather and at that time was transferred to intensive care unit for noninvasive positive pressure ventilation support. Her hospital course is further complicated by pneumomediastinum with subsequent resolution, critical illness myopathy and encephalopathy, and worsening hypoxemia requiring intubation on 07/15/2021, extubated on 07/25/2021 and transferred to [facility]. On 07/29 patient requiring re-intubation for worsening hypoxemia, likely secondary to an aspiration event. 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 Extubated 08/01/2021. No events overnight. Critical Care Time (minutes): 30 Physical Exam Vital Signs: Vital Signs: Last Vital Signs Temp 99.3 F 08/02/21 10:00 Pulse 75 08/02/21 10:00 Resp 32 H 08/02/21 10:00 BP 140/89 H 08/02/21 10:00 Pulse Ox 90 L 08/02/21 10:00 Body Mass Index 23.4 Const: General: no acute distress, alert and awake Eyes: Sclerae: sclerae normal EOM: EOMs intact bilaterally Neck: Neck: Yes no lymphadenopathy, Yes trachea midline and Yes supple Resp: Effort & Inspection: normal respiratory effort and no respiratory distress Auscultation: crackles (Bibasilar) Cardio: Rate: regular rate Rhythm: regular rhythm Heart sounds: no gallops, no murmurs and no rubs GI: Palpation (GI): Soft to palpation and Other GI palpation findings present ( Nontender) Auscultation: normal bowel sounds Extrem: General: Yes no pedal edema, No clubbing and No cyanosis Objective Data Labs CBC & Chem 7: 08/02/21 05:15 08/02/21 05:15 Labs: Laboratory Results - last 24 hr 08/01/21 08/01/21 08/02/21 15:23 21:40 05:13 WBC RBC Hgb Hct MCV MCH MCHC RDW Plt Count MPV Immature Gran % (Auto) Neut % (Auto) Lymph % (Auto) [place] % (Auto) Eos % (Auto) Baso % (Auto) Lymph # (Auto) [place] # (Auto) Eos # (Auto) Baso # (Auto) Abs Immat Gran (auto) Absolute Neuts (auto) Absolute Nucleated RBC Nucleated RBC % (auto) VBG pH 7.50 H VBG pCO2 46 VBG pO2 46 VBG HCO3 36 H VBG O2 Saturation 75.0 VBG Base Excess 12.4 Sodium Potassium Chloride Carbon Dioxide Anion Gap BUN Creatinine Estim Creat Clear Calc Estimated GFR POC Glucose 189 H 152 H Random Glucose Calcium Phosphorus Magnesium Albumin 08/02/21 08/02/21 08/02/21 05:15 05:15 05:19 WBC 7.8 RBC 3.25 L Hgb 8.1 L Hct 26.8 L MCV 82.5 MCH 24.9 L MCHC 30.2 L RDW 18.1 H Plt Count 190 MPV 10.2 Immature Gran % (Auto) 1.0 H Neut % (Auto) 71.7 Lymph % (Auto) 20.7 [place] % (Auto) 6.5 Eos % (Auto) 0.1 Baso % (Auto) 0.0 Lymph # (Auto) 1.6 [place] # (Auto) 0.5 Eos # (Auto) 0.0 Baso # (Auto) 0.0 Abs Immat Gran (auto) 0.08 H Absolute Neuts (auto) 5.6 Absolute Nucleated RBC 0.020 H Nucleated RBC % (auto) 0.3 H VBG pH VBG pCO2 VBG pO2 VBG HCO3 VBG O2 Saturation VBG Base Excess Sodium 145 Potassium 3.0 L Chloride 105 Carbon Dioxide 33 H Anion Gap 10 L BUN 11 Creatinine 0.53 Estim Creat Clear Calc 124.4 Estimated GFR > 60 POC Glucose 110 Random Glucose 130 H Calcium 8.5 Phosphorus 2.5 L Magnesium 1.7 Albumin 3.1 L Microbiology Microbiology Results: Microbiology 07/29/21 13:44 Sputum - Suctioned Gram Stain - Final 07/29/21 13:44 Sputum - Suctioned Sputum Culture - Preliminary Filamentous fungus 07/29/21 13:54 Blood - Central Line Blood Culture - Preliminary No growth after 48 hours. 07/29/21 13:57 Blood - Central Line Blood Culture - Preliminary No growth after 48 hours. 07/29/21 13:44 Urine clean catch - Clean Catch Midstream Urine Culture - Final No growth. 07/17/21 09:48 Sputum - Suctioned Gram Stain - Final 07/17/21 09:48 Sputum - Suctioned Sputum Culture - Final Staphylococcus aureus 07/01/21 00:37 Blood - Venous Blood Culture - Final No growth after 5 days. 07/01/21 00:37 Blood - Venous Blood Culture - Final No growth after 5 days. 07/02/21 15:55 Urine clean catch - Urine ortiz top Urine Culture - Final Quality Stroke Does the patient have a stroke diagnosis?: No VTE Prior VTE?: No VTE Risk Level:: Medical - moderate - high VTE Device Contraindication: Treatment Not Indicated VTE Drug Contraindication: N/A - Med Ordered Progress Note: A&P Assessment and plan (1) Encephalopathy acute: Status: Acute Assessment and Plan: Assessment: 41-year-old lady admitted with acute hypoxic respiratory failure secondary to COVID-19 ARDS, eventually requiring ventilatory support, now extubated. Plan: Neuro: With significant general anxiety and critical illness encephalopathy component, now improving significantly on Lamictal. Cardiac: No acute issues. Pulmonary: Acute hypoxic respiratory failure secondary to COVID-19 ARDS, further complicated by an aspiration event requiring re-intubation. Extubated 08/01/2021. Continue to titrate off supplemental oxygen as tolerated. Renal: No acute issues. Endo: No acute issues. GI: No acute issues. ID: COVID 19, continue to taper off Solu-Medrol. 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 Heme/Onc: No acute issues. Psych: No acute issues. Miscellaneous: No acute issues. Prophylaxis: Lovenox Diet: Pending swallow evaluation Critical care time spent: 30 minutes (2) Acute and chronic respiratory failure with hypoxia: Status: Acute (3) Pneumonia due to COVID-19 virus: Status: Acute
[2021-08-02 10:44] LABS: Glucose, Whole Blood 180 mg/dL (60-115)
[2021-08-02] MEDS: Insulin Lispro 100 UNIT/ML 3 ML VIAL SUBCUT ×2 (11:00→16:21)
--- NOTE | 2021-08-02 11:30 | MHC.SL.SWA ---
Speech Pathologist Impression: Risk of Aspiration Oralpharyngeal Dysphagia Risk of Aspiration Due to: History of Pneumonia Hx of Recent Extubation Weak Voice Dysphasia Diet Status: Upgrade Liquid Consistency and Strategies for Safe Swallow: Liquid Intake Recommendation: Thin Liquid Intake Strategies: Small Sips No Straws Solid Food Consistency: Dietary Recommendations: Pureed (NDD1) Additional Modifications to Solid Foods: No overt s/s of aspiration with PO trials. Patient became fatigued and short of breath while chewing and eventually spit out hard solid. Improved oral phase with pureed solids- complete oral clearance and timely oral prep. Patient tolerated thin liquid with no overt s/s of aspiration. Recommend UPGRADE to PUREED (NDD1) solids, THIN liquids, and CRUSHED pills in PUREE. Patient requires total supervision at the very least to monitor for any overt s/s of aspiration and ensure strict aspiration precautions. Patient requires assistance with tray set up and may require some assistance feeding. Recommend continue frequent oral care and positioning of bed at least 30 degrees to reduce risk of microaspiration. POWER NUT RUNNER OPERATOR to return tomorrow morning to monitor tolerance and re-assess potential for upgrade. Oral Medication Intake: Crushed with Puree Compensatory Strategies and Precautions to be Taken for Safe Swallow: Sitting Upright (90 deg) No Straw Small Bites and Sips Alternate Liquids/Solids Rate of Ingestion Change Oral Check Supervision While Eating and Drinking for Safe Swallow: Total Supervision (1:1) Swallowing Recommended Treatments: Compens. Strategy Educat. Recommendation for Speech: Inpatient Speech Therapy Recommend 1:1 total supervision and assistance as needed during PO intake. Strict aspiration precautions apply. POWER NUT RUNNER OPERATOR will follow up tomorrow morning to assess tolerance and potential for upgrade. Message sent to , RD, RN RE: this upgrade. Wood Machinist Clinican/Clinical Fellow: No Supervisory Statement: I have reviewed and agree with the student/clinical fellow's documentation: N/A Speech Language Pathologist: Selam Avalos M.A., [facility] [place]-POWER NUT RUNNER OPERATOR
[2021-08-02 15:41] LABS: Glucose, Whole Blood 237 mg/dL (60-115)
[2021-08-02 22:02] LABS: Glucose, Whole Blood 92 mg/dL (60-115)
[2021-08-02] MEDS: ondansetron HCL 4 MG/2 ML VIAL IVPUSH (22:34)
[2021-08-03] VITALS (25 sets, daily range): BP systolic 118–146; BP diastolic 74–98; PULSE 66–128; RESP 16–45; TEMP 37.2–37.9; O2SAT 92–100
[2021-08-03] MEDS: Melatonin 3 MG TABLET 6 MG PO (00:53)
[2021-08-03 05:30] LABS: VBG Base Excess 11.4 mmol/L; VBG HCO3 35 mmol/L (22-26); VBG pCO2 45 mmHg; VBG pO2 41 mmHg
[2021-08-03 05:36] LABS: MANUAL DIFF FLAG NO
[2021-08-03 05:40] LABS: Eosinophils Absolute Auto 0.5 X10*3/uL (0.0-0.4); Eosinophils Percent Auto 5.8 % (0-4); Hematocrit 28.4 % (37-47); Hemoglobin 8.6 g/dl (12.0-16.0); Imm Gran Abs Auto 0.04 X10*3/uL (0.00-0.03); Imm Gran Pct Auto 0.5 % (0.0-0.4); Lymphocytes Absolute Auto 1.7 X10*3/uL (1.2-4.9); Lymphocytes Percent Auto 21.3 % (20-40); Mean Corpuscular HGB Conc 30.3 g/dl (31.0-35.0); Mean Corpuscular Hemoglobin 25.1 pg (27.0-33.0); Mean Corpuscular Volume 82.8 fL (80-98); Monocytes Absolute Auto 0.5 X10*3/uL (0.1-1.2); Monocytes Percent Auto 6.3 % (2-11); Neutrophils Absolute Auto 5.3 X10*3/uL (2.0-8.3); Neutrophils Percent Auto 66.1 % (45-73); Platelet Count 184 X10*3/uL (160-400); Red Blood Count 3.43 X10*6/uL (4.20-5.50); Red Cell Distribution Width 17.6 % (11.0-16.0)
[2021-08-03 06:06] LABS: Albumin Level 3.1 g/dL (3.5-5.0); Anion Gap 13 (12-20); Blood Urea Nitrogen 8 mg/dL (9-16); Calcium 8.2 mg/dL (8.4-10.2); Carbon Dioxide 33 mmol/L (22-29); Chloride 99 mmol/L (96-108); Creatinine Clr Calc Pharmacy 119.9; Estimated Glomerular Filt Rate > 60; Glucose Random 153 mg/dL (60-115); Magnesium 1.9 mg/dL (1.6-2.6); Phosphorus 3.2 mg/dL (2.7-4.5); Potassium 2.9 mmol/L (3.3-5.1); Sodium 142 mmol/L (135-145)
[2021-08-03 06:31] LABS: Venous Blood Gas Refer to POC result
[2021-08-03 07:29] LABS: Glucose, Whole Blood 144 mg/dL (60-115)
[2021-08-03] MEDS: Enoxaparin Sodium 40 MG/0.4 ML SYRINGE SUBCUT (08:11)
[2021-08-03] MEDS: 0.9 % Sodium Chloride Flush 3 ML SYRINGE IVFLUSH (08:12)
[2021-08-03] MEDS: Potassium Chloride/H20 40 MEQ/100 ML PIGGYBACK 50 MEQ IV ×2 (08:12→10:28)
[2021-08-03] MEDS: methylPREDNISolone Sod Succ 40 MG/ML VIAL IVPUSH (08:12)
[2021-08-03] MEDS: lamoTRIgine 25 MG TABLET 50 MG PO ×2 (08:12→20:37)
--- NOTE | 2021-08-03 09:44 | PM.CCPN ---
Subjective Subjective Date of Service: 08/03/21 Interval History: 41-year-old lady was no past medical history, not vaccinated for COVID-19, admitted on 06/30/2020 his dyspnea and hypoxemia and a one-week history of COVID-19 symptoms. Patient has been initially admitted to [facility] and treated with dexamethasone. Her hospital course was significant for progressive hypoxemia requiring high-flow nasal cannula and 100% non-rebreather. On 07/02/2021 she remained persistently hypoxemic despite utilization of both high-flow nasal cannula at 100% and 100% non-rebreather and at that time was transferred to intensive care unit for noninvasive positive pressure ventilation support. Her hospital course is further complicated by pneumomediastinum with subsequent resolution, critical illness myopathy and encephalopathy, and worsening hypoxemia requiring intubation on 07/15/2021, extubated on 07/25/2021 and transferred to [facility]. On 07/29 patient requiring re-intubation for worsening hypoxemia, likely secondary to an aspiration event. 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 Extubated 08/01/2021. No events overnight. Critical Care Time (minutes): 0 Physical Exam Vital Signs: Vital Signs: Last Vital Signs Temp 99.7 F 08/03/21 09:00 Pulse 128 H 08/03/21 09:00 Resp 36 H 08/03/21 09:00 BP 145/95 H 08/03/21 09:00 Pulse Ox 98 08/03/21 09:00 Body Mass Index 23.4 Const: General: no acute distress, alert and awake Eyes: Sclerae: sclerae normal EOM: EOMs intact bilaterally Neck: Neck: Yes no lymphadenopathy, Yes trachea midline and Yes supple Resp: Effort & Inspection: normal respiratory effort and no respiratory distress Auscultation: crackles (Bibasal) Cardio: Rate: tachycardic Rhythm: regular rhythm Heart sounds: no gallops, no murmurs and no rubs GI: Palpation (GI): Soft to palpation and Other GI palpation findings present ( Nontender) Auscultation: normal bowel sounds Extrem: General: Yes no pedal edema, No clubbing and No cyanosis Objective Data Labs CBC & Chem 7: 08/03/21 05:25 08/03/21 05:25 Labs: Laboratory Results - last 24 hr 10/26/21 10/26/21 10/26/21 10:22 15:24 19:33 WBC RBC Hgb Hct MCV MCH MCHC RDW Plt Count MPV Immature Gran % (Auto) Neut % (Auto) Lymph % (Auto) [place] % (Auto) Eos % (Auto) Baso % (Auto) Lymph # (Auto) [place] # (Auto) Eos # (Auto) Baso # (Auto) Abs Immat Gran (auto) Absolute Neuts (auto) Absolute Nucleated RBC Nucleated RBC % (auto) VBG pH VBG pCO2 VBG pO2 VBG HCO3 VBG O2 Saturation VBG Base Excess Sodium Potassium Chloride Carbon Dioxide Anion Gap BUN Creatinine Estim Creat Clear Calc Estimated GFR POC Glucose 180 H 237 H 92 Random Glucose Calcium Phosphorus Magnesium Albumin 08/03/21 08/03/21 08/03/21 05:24 05:25 05:25 WBC 8.0 RBC 3.43 L Hgb 8.6 L Hct 28.4 L MCV 82.8 MCH 25.1 L MCHC 30.3 L RDW 17.6 H Plt Count 184 MPV 10.0 Immature Gran % (Auto) 0.5 H Neut % (Auto) 66.1 Lymph % (Auto) 21.3 [place] % (Auto) 6.3 Eos % (Auto) 5.8 H Baso % (Auto) 0.0 Lymph # (Auto) 1.7 [place] # (Auto) 0.5 Eos # (Auto) 0.5 H Baso # (Auto) 0.0 Abs Immat Gran (auto) 0.04 H Absolute Neuts (auto) 5.3 Absolute Nucleated RBC 0.000 Nucleated RBC % (auto) 0.0 VBG pH 7.50 H VBG pCO2 45 VBG pO2 41 VBG HCO3 35 H VBG O2 Saturation 66.0 VBG Base Excess 11.4 Sodium 142 Potassium 2.9 L Chloride 99 Carbon Dioxide 33 H Anion Gap 13 BUN 8 L Creatinine 0.55 Estim Creat Clear Calc 119.9 Estimated GFR > 60 POC Glucose Random Glucose 153 H Calcium 8.2 L Phosphorus 3.2 Magnesium 1.9 Albumin 3.1 L 08/03/21 07:25 WBC RBC Hgb Hct MCV MCH MCHC RDW Plt Count MPV Immature Gran % (Auto) Neut % (Auto) Lymph % (Auto) [place] % (Auto) Eos % (Auto) Baso % (Auto) Lymph # (Auto) [place] # (Auto) Eos # (Auto) Baso # (Auto) Abs Immat Gran (auto) Absolute Neuts (auto) Absolute Nucleated RBC Nucleated RBC % (auto) VBG pH VBG pCO2 VBG pO2 VBG HCO3 VBG O2 Saturation VBG Base Excess Sodium Potassium Chloride Carbon Dioxide Anion Gap BUN Creatinine Estim Creat Clear Calc Estimated GFR POC Glucose 144 H Random Glucose Calcium Phosphorus Magnesium Albumin Microbiology Microbiology Results: Microbiology 07/29/21 13:44 Sputum - Suctioned Gram Stain - Final 07/29/21 13:44 Sputum - Suctioned Sputum Culture - Preliminary Filamentous fungus 07/29/21 13:54 Blood - Central Line Blood Culture - Preliminary No growth after 48 hours. 07/29/21 13:57 Blood - Central Line Blood Culture - Preliminary No growth after 48 hours. 07/29/21 13:44 Urine clean catch - Clean Catch Midstream Urine Culture - Final No growth. 07/17/21 09:48 Sputum - Suctioned Gram Stain - Final 07/17/21 09:48 Sputum - Suctioned Sputum Culture - Final Staphylococcus aureus 07/01/21 00:37 Blood - Venous Blood Culture - Final No growth after 5 days. 07/01/21 00:37 Blood - Venous Blood Culture - Final No growth after 5 days. 07/02/21 15:55 Urine clean catch - Urine ortiz top Urine Culture - Final Quality Stroke Does the patient have a stroke diagnosis?: No VTE Prior VTE?: No VTE Risk Level:: Medical - moderate - high VTE Device Contraindication: Treatment Not Indicated VTE Drug Contraindication: N/A - Med Ordered Progress Note: A&P Assessment and plan (1) Encephalopathy acute: Status: Acute (2) Acute and chronic respiratory failure with hypoxia: Status: Acute (3) Pneumonia due to COVID-19 virus: Status: Acute Assessment and Plan: Assessment: 41-year-old lady admitted with acute hypoxic respiratory failure secondary to COVID-19 ARDS, eventually requiring ventilatory support, now extubated. Plan: Neuro: With significant general anxiety and critical illness encephalopathy component, now improved significantly on Lamictal. Cardiac: No acute issues. Pulmonary: Acute hypoxic respiratory failure secondary to COVID-19 ARDS, further complicated by an aspiration event requiring re-intubation. Extubated 08/01/2021. Continue to titrate off supplemental oxygen as tolerated. Renal: No acute issues. Endo: No acute issues. GI: No acute issues. ID: COVID 19, continue to taper off Solu-Medrol. 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 Heme/Onc: No acute issues. Psych: No acute issues. Miscellaneous: No acute issues. Prophylaxis: Lovenox Diet: Pureed
--- NOTE | 2021-08-03 09:48 | MHC.CLN ---
F/U DIET ADVANCED TO PUREED ADDED ENSURE TID TO PROVIDE 1050KCALS, 60G PROTEIN MONITOR PO INTAKE CLOSELY
[2021-08-03] MEDS: Potassium Chloride Packet 20 MEQ PACKET 60 MEQ PO ×2 (10:28→12:20)
[2021-08-03] MEDS: ondansetron HCL 4 MG/2 ML VIAL IVPUSH (10:29)
--- NOTE | 2021-08-03 11:19 | MHC.SL.DTX ---
Pre-Treatment Diet: NDD1 PUREED solids with THIN liquids Subjective: Changes made to current diet?: Yes: advance to NDD3 CHOPPED/ADVANCED solids with EXTRA SAUCE/GRAVY. This 3D MODELER called dietary to request the addition of extra sauce/gravy. Continue thin liquids via cup sips (NO STRAWS), aspiration precautions, tray set up, and supervision with PO intake. Dysphasia Diet Status: Upgrade Liquid Consistency and Strategies: Liquid Intake Recommendation: Thin Compensatory Strategies for Safe Swallow: Small Sips No Straws Compensatory Strategies for Safe Swallow(b): Sitting Upright (90 deg) No Straw Small Bites and Sips Alternate Liquids/Solids Rate of Ingestion Change Oral Check Solid Food Consistency: Dietary Recommendations: Chopped/Advanced (NDD3) Additional Modifications to Solids: Extra sauce/gravy Oral Medication Intake: Crushed with Puree Strategies and Precautions to be Taken for Safe Swallow: Compensatory Swallowing Status: Sitting Upright (90 deg) No Straw Small Bites and Sips Alternate Liquids/Solids Rate of Ingestion Change Oral Check Supervision While Eating and/Drinking: Total Supervision (1:1) Foods to Avoid: dry, hard, sticky solids Swallowing Recommended Treatments: Compens. Strategy Educat. Level of Impact on: Daily activities: Moderate Interpersonal interactions: Moderate Community: Moderate Prognosis for Improvement: Good Recommendation for Speech: Inpatient Speech Therapy 08/03: Pt was reintubated 07/29 due to hypoxemia likely related to an aspiration event, per bread dough mixer's notes. Pt was successfully extubated 08/01. Per Dr. Smith's notes, pt's sputum is growing filamentous fungus. Current diet consistency NDD1 PUREED solids with THIN liquids. Pt was seen for dysphagia treatment with her present on a video call from pt's phone. RN reported that pt has been tolerating recommended diet consistency of NDD1 PUREED solids and THIN liquids without overt s/s aspiration but reported that pt does not like pureed solids. Per RD's note, Ensure TID has been added to pt's diet. Pt was pleasant and cooperative throughout the session. She spoke a combination of Chadian and Icelandic and easily followed directions presented in Icelandic by this 3D MODELER. Pt tolerated pureed solids with a slow but functional oral phase. She tolerated trial of moistened ground solids as well as a chopped consistency, dry solid for which she demonstrated a slow but functional oral phase. A slightly anterior mastication pattern was noted. Pt was able to self feed and reported that she was unable to hold a cup yesterday and was very happy she could do so this date. Pt requested jello for which she independently utilized a spoon to break up the bolus prior to consuming the solid. She demonstrated an unremarkable oral phase with this consistency. No overt s/s aspiration were noted across any solid or liquid trials this date. Updated with RN, , and RD re: recommendation to advance to NDD3 CHOPPED/ADVANCED solids with EXTRA SAUCE/GRAVY. This 3D MODELER called dietary to request the addition of extra sauce/gravy. Continue thin liquids via cup sips (NO STRAWS), aspiration precautions, tray set up, and supervision with PO intake. 3D MODELER will continue to follow pt throughout her hospitalization. Resource Economist Clinican/Clinical Fellow: No Supervisory Statement: I have reviewed and agree with the student/clinical fellow's documentation: N/A Speech Language Pathologist: Annette Martin M.A., CCC-3D MODELER
[2021-08-03] MEDS: Insulin Lispro 100 UNIT/ML 3 ML VIAL SUBCUT (12:21)
[2021-08-03 12:31] LABS: Glucose, Whole Blood 319 mg/dL (60-115)
[2021-08-03] MEDS: Albuterol/Iprat 2.5/0.5MG 3 ML AMPUL.NEB INHALE (13:23)
[2021-08-03 16:43] LABS: Glucose, Whole Blood 146 mg/dL (60-115)
[2021-08-03 20:37] LABS: Glucose, Whole Blood 154 mg/dL (60-115)
[2021-08-04] VITALS (18 sets, daily range): BP systolic 126–148; BP diastolic 80–100; PULSE 76–129; RESP 20–37; TEMP 36.1–37.9; O2SAT 90–99; BMI 23.4
[2021-08-04] MEDS: Acetaminophen 325 MG TABLET 650 MG PO ×2 (01:54→09:08)
[2021-08-04] MEDS: guaiFEN/Codeine SF 200/20/10ML 10 ML LIQUID PO (04:46)
[2021-08-04 05:22] LABS: MANUAL DIFF FLAG NO
[2021-08-04 05:24] LABS: Basophils Percent Auto 0.1 % (0-2); Eosinophils Absolute Auto 0.9 X10*3/uL (0.0-0.4); Eosinophils Percent Auto 8.1 % (0-4); Hematocrit 33.1 % (37-47); Hemoglobin 9.9 g/dl (12.0-16.0); Imm Gran Abs Auto 0.08 X10*3/uL (0.00-0.03); Imm Gran Pct Auto 0.7 % (0.0-0.4); Lymphocytes Absolute Auto 2.3 X10*3/uL (1.2-4.9); Lymphocytes Percent Auto 20.2 % (20-40); Mean Corpuscular HGB Conc 29.9 g/dl (31.0-35.0); Mean Corpuscular Hemoglobin 24.7 pg (27.0-33.0); Mean Corpuscular Volume 82.5 fL (80-98); Mean Platelet Volume 10.1 fL (9.4-12.3); Monocytes Absolute Auto 0.7 X10*3/uL (0.1-1.2); Monocytes Percent Auto 6.2 % (2-11); Neutrophils Absolute Auto 7.4 X10*3/uL (2.0-8.3); Neutrophils Percent Auto 64.7 % (45-73); Platelet Count 244 X10*3/uL (160-400); Red Blood Count 4.01 X10*6/uL (4.20-5.50); Red Cell Distribution Width 17.5 % (11.0-16.0); White Blood Count 11.4 X10*3/uL (4.8-10.8)
[2021-08-04 05:24] LABS: VBG Base Excess 11.9 mmol/L; VBG HCO3 37 mmol/L (22-26); VBG pCO2 50 mmHg; VBG pH 7.47 (7.32-7.43); VBG pO2 44 mmHg
[2021-08-04 05:47] LABS: Albumin Level 3.5 g/dL (3.5-5.0); Anion Gap 11 (12-20); Blood Urea Nitrogen 7 mg/dL (9-16); Calcium 8.8 mg/dL (8.4-10.2); Carbon Dioxide 32 mmol/L (22-29); Chloride 98 mmol/L (96-108); Creatinine Clr Calc Pharmacy 109.9; Estimated Glomerular Filt Rate > 60; Glucose Random 169 mg/dL (60-115); Magnesium 1.7 mg/dL (1.6-2.6); Phosphorus 3.1 mg/dL (2.7-4.5); Potassium 4.4 mmol/L (3.3-5.1); Sodium 137 mmol/L (135-145)
[2021-08-04 07:39] LABS: Glucose, Whole Blood 164 mg/dL (60-115)
--- NOTE | 2021-08-04 08:02 | P.PNCC_ITS ---
Subjective Subjective Date of Service: 08/04/21 Interval History: 41-year-old lady was no past medical history, not vaccinated for COVID-19, admitted on 06/30/2020 his dyspnea and hypoxemia and a one-week history of COVID-19 symptoms. Patient has been initially admitted to [facility] and treated with dexamethasone. Her hospital course was significant for progressive hypoxemia requiring high-flow nasal cannula and 100% non-rebreather. On 07/02/2021 she remained persistently hypoxemic despite utilization of both high-flow nasal cannula at 100% and 100% non-rebreather and at that time was transferred to intensive care unit for noninvasive positive pressure ventilation support. Her hospital course is further complicated by pneumomediastinum with subsequent resolution, critical illness myopathy and encephalopathy, and worsening hypoxemia requiring intubation on 07/15/2021, extubated on 07/25/2021 and transferred to [facility]. On 07/29 patient requiring re-intubation for worsening hypoxemia, likely secondary to an aspiration event. 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 Extubated 08/01/2021. Now on 8 L via nasal cannula. No events overnight. Critical Care Time (minutes): 0 Physical Exam Vital Signs: Vital Signs: Last Vital Signs Temp 99.3 F 08/04/21 07:00 Pulse 95 08/04/21 07:00 Resp 26 H 08/04/21 07:00 BP 142/93 H 08/04/21 07:00 Pulse Ox 98 08/04/21 07:00 Body Mass Index 23.4 Const: General: no acute distress, alert and awake Eyes: Sclerae: sclerae normal EOM: EOMs intact bilaterally Neck: Neck: Yes no lymphadenopathy, Yes trachea midline and Yes supple Resp: Effort & Inspection: normal respiratory effort and no respiratory distress Auscultation: crackles (Bibasilar) Cardio: Rate: regular rate Rhythm: regular rhythm Heart sounds: no gallops, no murmurs and no rubs GI: Palpation (GI): Soft to palpation and Other GI palpation findings present ( Nontender) Auscultation: normal bowel sounds Extrem: General: Yes no pedal edema, No clubbing and No cyanosis Objective Data Labs CBC & Chem 7: 08/04/21 05:15 08/04/21 05:15 Labs: Laboratory Results - last 24 hr 08/03/21 08/03/21 08/03/21 12:00 16:31 20:32 WBC RBC Hgb Hct MCV MCH MCHC RDW Plt Count MPV Immature Gran % (Auto) Neut % (Auto) Lymph % (Auto) [place] % (Auto) Eos % (Auto) Baso % (Auto) Lymph # (Auto) [place] # (Auto) Eos # (Auto) Baso # (Auto) Abs Immat Gran (auto) Absolute Neuts (auto) Absolute Nucleated RBC Nucleated RBC % (auto) VBG pH VBG pCO2 VBG pO2 VBG HCO3 VBG O2 Saturation VBG Base Excess Sodium Potassium Chloride Carbon Dioxide Anion Gap BUN Creatinine Estim Creat Clear Calc Estimated GFR POC Glucose 319 H 146 H 154 H Random Glucose Calcium Phosphorus Magnesium Albumin 08/04/21 08/04/21 08/04/21 05:15 05:15 05:18 WBC 11.4 H RBC 4.01 L Hgb 9.9 L Hct 33.1 L MCV 82.5 MCH 24.7 L MCHC 29.9 L RDW 17.5 H Plt Count 244 D MPV 10.1 Immature Gran % (Auto) 0.7 H Neut % (Auto) 64.7 Lymph % (Auto) 20.2 [place] % (Auto) 6.2 Eos % (Auto) 8.1 H Baso % (Auto) 0.1 Lymph # (Auto) 2.3 [place] # (Auto) 0.7 Eos # (Auto) 0.9 H Baso # (Auto) 0.0 Abs Immat Gran (auto) 0.08 H Absolute Neuts (auto) 7.4 Absolute Nucleated RBC 0.000 Nucleated RBC % (auto) 0.0 VBG pH 7.47 H VBG pCO2 50 VBG pO2 44 VBG HCO3 37 H VBG O2 Saturation 71.0 VBG Base Excess 11.9 Sodium 137 Potassium 4.4 D Chloride 98 Carbon Dioxide 32 H Anion Gap 11 L BUN 7 L Creatinine 0.60 Estim Creat Clear Calc 109.9 Estimated GFR > 60 POC Glucose Random Glucose 169 H Calcium 8.8 D Phosphorus 3.1 Magnesium 1.7 Albumin 3.5 08/04/21 07:34 WBC RBC Hgb Hct MCV MCH MCHC RDW Plt Count MPV Immature Gran % (Auto) Neut % (Auto) Lymph % (Auto) [place] % (Auto) Eos % (Auto) Baso % (Auto) Lymph # (Auto) [place] # (Auto) Eos # (Auto) Baso # (Auto) Abs Immat Gran (auto) Absolute Neuts (auto) Absolute Nucleated RBC Nucleated RBC % (auto) VBG pH VBG pCO2 VBG pO2 VBG HCO3 VBG O2 Saturation VBG Base Excess Sodium Potassium Chloride Carbon Dioxide Anion Gap BUN Creatinine Estim Creat Clear Calc Estimated GFR POC Glucose 164 H Random Glucose Calcium Phosphorus Magnesium Albumin Microbiology Microbiology Results: Microbiology 07/29/21 13:54 Blood - Central Line Blood Culture - Final No growth after 5 days. 07/29/21 13:57 Blood - Central Line Blood Culture - Final No growth after 5 days. 07/29/21 13:44 Sputum - Suctioned Gram Stain - Final 07/29/21 13:44 Sputum - Suctioned Sputum Culture - Preliminary Filamentous fungus 07/29/21 13:44 Urine clean catch - Clean Catch Midstream Urine Culture - Final No growth. 07/17/21 09:48 Sputum - Suctioned Gram Stain - Final 07/17/21 09:48 Sputum - Suctioned Sputum Culture - Final Staphylococcus aureus 07/01/21 00:37 Blood - Venous Blood Culture - Final No growth after 5 days. 07/01/21 00:37 Blood - Venous Blood Culture - Final No growth after 5 days. 07/02/21 15:55 Urine clean catch - Urine ortiz top Urine Culture - Final Quality Stroke Does the patient have a stroke diagnosis?: No VTE Prior VTE?: No VTE Risk Level:: Medical - moderate - high VTE Device Contraindication: Treatment Not Indicated VTE Drug Contraindication: N/A - Med Ordered Progress Note: A&P Assessment and plan (1) Acute and chronic respiratory failure with hypoxia: Status: Acute Assessment and Plan: Assessment: 41-year-old lady admitted with acute hypoxic respiratory failure secondary to COVID-19 ARDS, eventually requiring ventilatory support, now extubated. Plan: Neuro: With significant general anxiety and critical illness encephalopathy component, now improved significantly on Lamictal. Cardiac: No acute issues. Pulmonary: Acute hypoxic respiratory failure secondary to COVID-19 ARDS, further complicated by an aspiration event requiring re-intubation. Extubated 08/01/2021. Continue to titrate off supplemental oxygen as tolerated. Renal: No acute issues. Endo: No acute issues. GI: No acute issues. ID: COVID 19, continue to taper off prednisone. 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 Heme/Onc: No acute issues. Psych: No acute issues. Miscellaneous: No acute issues. Prophylaxis: Lovenox Diet: Pureed (2) Pneumonia due to COVID-19 virus: Status: Acute (3) Anxiety: Status: Acute
--- NOTE | 2021-08-04 08:17 | PC.NURSE ---
Skin assessment completed. Patient continues with stage 2 pressure ulcers to bilateral buttocks. Triad applied covered with foam dressing. Scattered bruising on bilateral arms. No other skin issues at this time.
[2021-08-04] MEDS: Enoxaparin Sodium 40 MG/0.4 ML SYRINGE SUBCUT (08:49)
[2021-08-04] MEDS: lamoTRIgine 25 MG TABLET 50 MG PO ×2 (08:50→21:23)
[2021-08-04] MEDS: Magnesium Sulfate/H2O 2 GM/50 ML PIGGYBACK IV (08:50)
[2021-08-04] MEDS: predniSONE 10 MG TABLET 30 MG PO (08:50)
[2021-08-04] MEDS: 0.9 % Sodium Chloride Flush 3 ML SYRINGE IVFLUSH ×3 (08:51→21:23)
[2021-08-04] MEDS: Insulin Lispro 100 UNIT/ML 3 ML VIAL SUBCUT ×3 (08:52→17:13)
--- NOTE | 2021-08-04 10:39 | MHC.SLORD ---
Speech Language Pathology Order Status: SURGICAL SERVICES TECH attempted to see patient this morning for PO trials, but patient was unavailable, receiving other care. Message sent to RN inquiring about patient's tolerance of recent upgrade to CHOPPED/ADVANCED (NDD3) with extra sauce/gravy and THIN liquids (assistance with tray set up and total supervision). SURGICAL SERVICES TECH to return today if needed. Otherwise will follow up tomorrow morning. SURGICAL SERVICES TECH to continue to follow to monitor tolerance of PO and re-assess potential for upgrade.
[2021-08-04 10:45] LABS: Venous Blood Gas Refer to POC result
[2021-08-04 12:50] LABS: Glucose, Whole Blood 292 mg/dL (60-115)
[2021-08-04 17:08] LABS: Glucose, Whole Blood 185 mg/dL (60-115)
[2021-08-04 20:20] LABS: Glucose, Whole Blood 137 mg/dL (60-115)
[2021-08-05] VITALS (10 sets, daily range): BP systolic 115–150; BP diastolic 70–99; PULSE 89–128; RESP 18–20; TEMP 36.1–36.9; O2SAT 95–100
--- NOTE | 2021-08-05 | ECG_ITS ---
Test Reason : TACHYCARDIA Blood Pressure : / mmHG Vent. Rate : 122 BPM Atrial Rate : 122 BPM P-R Int : 116 ms QRS Dur : 064 ms QT Int : 302 ms P-R-T Axes : 054 -27 045 degrees QTc Int : 430 ms Sinus tachycardia Left axis deviation Voltage criteria for left ventricular hypertrophy Abnormal ECG When compared with ECG of 30-JUL-2021 22:33, T wave inversion no longer evident in Anterior leads Referred By: Oksana Trejo Electronically Signed By:KATIE BROWN MD
[2021-08-05] MEDS: Acetaminophen 325 MG TABLET 650 MG PO (05:16)
[2021-08-05 06:42] LABS: MANUAL DIFF FLAG NO
[2021-08-05 06:56] LABS: Basophils Percent Auto 0.1 % (0-2); Eosinophils Absolute Auto 0.9 X10*3/uL (0.0-0.4); Eosinophils Percent Auto 5.6 % (0-4); Hematocrit 38.9 % (37-47); Hemoglobin 11.5 g/dl (12.0-16.0); Imm Gran Abs Auto 0.12 X10*3/uL (0.00-0.03); Imm Gran Pct Auto 0.7 % (0.0-0.4); Lymphocytes Absolute Auto 2.7 X10*3/uL (1.2-4.9); Lymphocytes Percent Auto 16.6 % (20-40); Mean Corpuscular HGB Conc 29.6 g/dl (31.0-35.0); Mean Corpuscular Hemoglobin 24.3 pg (27.0-33.0); Mean Corpuscular Volume 82.2 fL (80-98); Mean Platelet Volume 10.3 fL (9.4-12.3); Monocytes Percent Auto 6.1 % (2-11); Neutrophils Absolute Auto 11.6 X10*3/uL (2.0-8.3); Neutrophils Percent Auto 70.9 % (45-73); Platelet Count 296 X10*3/uL (160-400); Red Blood Count 4.73 X10*6/uL (4.20-5.50); Red Cell Distribution Width 17.1 % (11.0-16.0); White Blood Count 16.3 X10*3/uL (4.8-10.8)
[2021-08-05 07:01] LABS: Anion Gap 13 (12-20); Blood Urea Nitrogen 9 mg/dL (9-16); Calcium 9.4 mg/dL (8.4-10.2); Carbon Dioxide 34 mmol/L (22-29); Chloride 94 mmol/L (96-108); Creatinine Clr Calc Pharmacy 96.9; Estimated Glomerular Filt Rate > 60; Glucose Random 173 mg/dL (60-115); Potassium 4.2 mmol/L (3.3-5.1); Sodium 137 mmol/L (135-145)
[2021-08-05 07:58] LABS: Glucose, Whole Blood 177 mg/dL (60-115)
[2021-08-05] MEDS: lamoTRIgine 25 MG TABLET 50 MG PO ×2 (08:30→20:46)
[2021-08-05] MEDS: predniSONE 10 MG TABLET 30 MG PO (08:30)
[2021-08-05] MEDS: Enoxaparin Sodium 40 MG/0.4 ML SYRINGE SUBCUT (08:31)
[2021-08-05] MEDS: 0.9 % Sodium Chloride Flush 3 ML SYRINGE IVFLUSH ×3 (08:31→20:46)
[2021-08-05] MEDS: Insulin Lispro 100 UNIT/ML 3 ML VIAL SUBCUT ×3 (08:31→17:52)
--- NOTE | 2021-08-05 08:39 | MHC.CM.PN ---
dc plan is to home if o2 demands lessen vs str for high o2 demands. cm to cont. to follow.
[2021-08-05 11:27] LABS: Glucose, Whole Blood 246 mg/dL (60-115)
--- NOTE | 2021-08-05 11:37 | MHC.SLORD ---
Speech Language Pathology Order Status: Pt declined all PO trials offered when this HOT CAR CHARGER arrived for a dysphagia tx session. Pt's was on a video chat on pt's phone when this HOT CAR CHARGER arrived. She reported that she was full from breakfast which she reported tolerating without overt difficulty. Pt stated she consumed Cheerios and enjoyed them. Updated with RN who reported pt has been tolerating PO without overt s/s aspiration. Continue with NDD3 CHOPPED/ADVANCED solids and THIN liquids, aspiration precautions, and tray set up/supervision. HOT CAR CHARGER will continue to follow pt and assess for potential advancement in solid consistency.
--- NOTE | 2021-08-05 13:37 | MHC.CLN ---
Addendum entered by Jayna Turner, KRISSY 08/05/21 14:49: AGREE WITH PROVIDER'S ASSESSMENT BELOW Original Note: F/U DIET ADVANCED TO CHOPPED (NDD3) PT RECEIVING ENSURE TID TO PROVIDE 1050KCALS, 60G PROTEIN PO INTAKE VARIABLE DOCUMENTED 25% X 2 MEALS, 50% X 2 MEALS, 100% X 2 MEALS MONITOR PO INTAKE CLOSELY
--- NOTE | 2021-08-05 14:06 | P.PNIM_ITS ---
Subjective Subjective Date of Service: 08/05/21 <BELEN Bean - Last Filed: 08/05/21 14:24> 08/05/21 <Homar Buchanan MD - Last Filed: 08/05/21 14:29> Interval History: Seen and examined this morning Follow-up for COVID-19, downgraded from ICU yesterday afternoon Patient reports feeling better today, reports improvement in her breathing as well as her anxiety. She is looking forward to being able to return home to see her children <BELEN Bean - Last Filed: 08/05/21 14:24> Review of Systems Review of Systems: Yes all other systems are reviewed and are negative <BELEN Bean - Last Filed: 08/05/21 14:24> Constitutional Constitutional: Denies chills and Denies fever(s) <BELEN Bean - Last Filed: 08/05/21 14:24> Cardiovascular Cardiovascular: Denies chest pain <BELEN Bean - Last Filed: 08/05/21 14:24> Gastrointestinal Gastrointestinal: Denies abdominal pain <BELEN Bean - Last Filed: 08/05/21 14:24> Physical Exam Vital Signs: Vital Signs: Last Vital Signs Temp 97.4 F 08/05/21 12:00 Pulse 128 H 08/05/21 12:00 Resp 18 08/05/21 12:00 BP 141/82 H 08/05/21 12:00 Pulse Ox 95 08/05/21 12:00 Body Mass Index 23.4 <BELEN Bean - Last Filed: 08/05/21 14:24> Const: General: healthy appearing, comfortable, no acute distress, alert and awake <BELEN Bean - Last Filed: 08/05/21 14:24> Nutritional Appearance: well nourished <BELEN Bean - Last Filed: 08/05/21 14:24> Orientation/consciousness: patient oriented x3 <BELEN Bean Last Filed: 08/05/21 14:24> HENMT: Head: Yes normocephalic and Yes atraumatic <BELEN Bean - Last Filed: 08/05/21 14:24> Eyes: Sclerae: sclerae normal <BELEN Bean Last Filed: 08/05/21 14:24> Resp: Effort & Inspection: normal respiratory effort and no respiratory distress <BELEN Bean Last Filed: 08/05/21 14:24> Cardio: Rate: tachycardic <BELEN Bean Last Filed: 08/05/21 14:24> Rhythm: regular rhythm <BELEN Bean Last Filed: 08/05/21 14:24> GI: Palpation (GI): Soft to palpation and nontender <BELEN Bean Last Filed: 08/05/21 14:24> Neuro: General: patient oriented x3 <BELEN Bean Last Filed: 08/05/21 14:24> Cranial nerves: Yes CN's II-XII intact bilaterally and Yes Bilaterally intact EOM present <BELEN Bean Last Filed: 08/05/21 14:24> Objective Data Active Medications Acetaminophen (Acetaminophen 325 Mg Tablet) 650 mg PO Q6H PRN PRN Reason: Pain, Mild (Pain Scale 1-3) Last Admin: 08/05/21 05:16 Dose: 650 mg Documented by: NATO Albuterol/Ipratropium (Albuterol/Iprat 2.5/0.5mg 3 Ml Ampul.Neb) 3 ml INHALE RQ6H PRN PRN Reason: Wheezing Last Admin: 08/03/21 13:23 Dose: 3 ml Documented by: BRITTNEY Clonidine HCl (Clonidine Hcl 0.1 Mg Tablet) 0.1 mg PO BID CANDI; Protocol Dextrose (Dextrose 50 % 25 Gm/50 Ml Vial) 25 gm IVPUSH Q15M PRN; Protocol PRN Reason: per Hypoglycemia Standing Ord. Enoxaparin Sodium (Enoxaparin Sodium 40 Mg/0.4 Ml Syringe) 40 mg SUBCUT Q24H CANDI Last Admin: 08/05/21 08:31 Dose: 40 mg Documented by: MARTIN Glucose (Glucose Gel 15 Gm Gel..Gram.) 15 gm PO Q15M PRN; Protocol PRN Reason: per Hypoglycemia Standing Ord. Insulin Human Lispro (Insulin Lispro 100 Unit/Ml 3 Ml Vial) 0 unit SUBCUT QIDACHS COUNTS INCLUDE 234 BEDS AT THE [facility]; Protocol Last Admin: 08/05/21 12:12 Dose: 4 unit Documented by: [place] Lamotrigine (Lamotrigine 25 Mg Tablet) 50 mg PO BID COUNTS INCLUDE 234 BEDS AT THE [facility] Last Admin: 08/05/21 08:30 Dose: 50 mg Documented by: MARTIN Ondansetron HCl (Ondansetron Hcl 4 Mg/2 Ml Vial) 4 mg IVPUSH Q6H PRN PRN Reason: nausea Last Admin: 08/03/21 10:29 Dose: 4 mg Documented by: KAPIL Prednisone (Prednisone 10 Mg Tablet) 30 mg PO DAILY COUNTS INCLUDE 234 BEDS AT THE [facility] Stop: 08/09/21 08:59 Last Admin: 08/05/21 08:30 Dose: 30 mg Documented by: MARTIN Sodium Chloride (0.9 % Sodium Chloride Flush 3 Ml Syringe) 3 ml IVFLUSH QSHIFT COUNTS INCLUDE 234 BEDS AT THE [facility] Last Admin: 08/05/21 08:31 Dose: 3 ml Documented by: MARTIN <BELEN Bean - Last Filed: 08/05/21 14:24> Labs CBC & Chem 7: : 08/05/21 06:37 08/05/21 06:37 <BELEN Bean - Last Filed: 08/05/21 14:24> Labs: Laboratory Results - last 24 hr 08/04/21 08/04/21 08/05/21 17:04 20:16 06:37 MCV 82.2 MCH 24.3 L MCHC 29.6 L RDW 17.1 H Plt Count 296 MPV 10.3 Immature Gran % (Auto) 0.7 H Neut % (Auto) 70.9 Lymph % (Auto) 16.6 L [place] % (Auto) 6.1 Eos % (Auto) 5.6 H Baso % (Auto) 0.1 Lymph # (Auto) 2.7 [place] # (Auto) 1.0 Eos # (Auto) 0.9 H Baso # (Auto) 0.0 Abs Immat Gran (auto) 0.12 H Absolute Neuts (auto) 11.6 H Absolute Nucleated RBC 0.000 Nucleated RBC % (auto) 0.0 Anion Gap Estim Creat Clear Calc Estimated GFR POC Glucose 185 H 137 H Random Glucose Calcium 08/05/21 08/05/21 08/05/21 06:37 07:25 11:17 MCV MCH MCHC RDW Plt Count MPV Immature Gran % (Auto) Neut % (Auto) Lymph % (Auto) [place] % (Auto) Eos % (Auto) Baso % (Auto) Lymph # (Auto) [place] # (Auto) Eos # (Auto) Baso # (Auto) Abs Immat Gran (auto) Absolute Neuts (auto) Absolute Nucleated RBC Nucleated RBC % (auto) Anion Gap 13 Estim Creat Clear Calc 96.9 Estimated GFR > 60 POC Glucose 177 H 246 H Random Glucose 173 H Calcium 9.4 D <BELEN Bean - Last Filed: 08/05/21 14:24> Assessment and Plan (1) Acute and chronic respiratory failure with hypoxia: Status: Acute <BELEN Bean - Last Filed: 08/05/21 14:24> (2) COVID-19: Status: Acute <BELEN Bean - Last Filed: 08/05/21 14:24> Assessment and Plan: This is a 41-year-old Slovenian-speaking female with no significant past medical history admitted for COVID-19, requiring ICU leval of care from 07/02 to 07/28 and 11 days of intubation (07/15-07/26) complicated by pneumomediastinum downgraded to IMC on 07/28 and then returned to the ICU the following day and was reintubated for worsening respiratory status. She was extubated 08/01 and downgraded to the medical floor 08/04.? Her hospital course has been complicated by severe anxiety/panic attacks. Acute respiratory failure with hypoxia Secondary to underlying COVID 19 intubated from 07/15 to 07/26; 07/29-08/01 Now tolerating 6L sputum cx from 07/17 growing MSSA s/p doxycycline sputum culture was growing filamentous fungus, initially started on voriconazole which was later d/c as it was thought to be colonization Severe anxiety started on lamictal in ICU Was on Precedex drip in ICU, will add clonidine tachycardia ekg with sinus tach likely anxiety contributing check thyroid function repeat ddimer, if significantly elevated would consider CTA breast mass present on admission ct outpatient follow up dvt ppx - lovenox code status - full code Attending-Dr.? Buchanan <BELEN Bean - Last Filed: 08/05/21 14:24> Quality Stroke Does the patient have a stroke diagnosis?: No <BELEN Bean - Last Filed: 08/05/21 14:24> VTE Prior VTE?: No <BELEN Bean - Last Filed: 08/05/21 14:24> VTE Risk Level:: Medical - moderate - high <BELEN Bean - Last Filed: 08/05/21 14:24> VTE Device Contraindication: Treatment Not Indicated <BELEN Bean - Last Filed: 08/05/21 14:24> VTE Drug Contraindication: N/A - Med Ordered <BELEN Bean - Last Filed: 08/05/21 14:24>
[2021-08-05 14:39] LABS: TSH reflex Free T4 0.41 uIU/mL (0.32-4.0)
[2021-08-05 16:03] LABS: Glucose, Whole Blood 279 mg/dL (60-115)
--- NOTE | 2021-08-05 18:13 | PC.NURSE ---
Today patient was tachycardic, HR was 120's-130's, and would occasionally sustain 140's for periods of time. Patient reported that she was anxious, but denied any other symptoms. Patient's SpO2 remained 93-99% on 5-6L mccann. Oksana Trejo was notified of patient's status and HR. BID Clonidine was ordered for anxiety but patient refused medication. Patient stated that an anxiety medication that was given to her in the ICU made her feel weird so she did not want to take any anxiety medications. Patient education regarding side effects of clonidine were provided. Emotional support was provided throughout shift.
[2021-08-05 19:50] LABS: Glucose, Whole Blood 131 mg/dL (60-115)
[2021-08-05] MEDS: cloNIDine HCL 0.1 MG TABLET PO (20:46)
[2021-08-06] VITALS (8 sets, daily range): BP systolic 111–136; BP diastolic 73–88; PULSE 95–140; RESP 16–25; TEMP 36.2–37.1; O2SAT 95–100
[2021-08-06] MEDS: Acetaminophen 325 MG TABLET 650 MG PO ×2 (03:52→14:26)
[2021-08-06 06:51] LABS: MANUAL DIFF FLAG NO
[2021-08-06 07:01] LABS: Basophils Percent Auto 0.1 % (0-2); Eosinophils Absolute Auto 0.7 X10*3/uL (0.0-0.4); Eosinophils Percent Auto 4.5 % (0-4); Hematocrit 38.6 % (37-47); Hemoglobin 11.6 g/dl (12.0-16.0); Imm Gran Abs Auto 0.12 X10*3/uL (0.00-0.03); Imm Gran Pct Auto 0.8 % (0.0-0.4); Lymphocytes Absolute Auto 2.7 X10*3/uL (1.2-4.9); Lymphocytes Percent Auto 16.7 % (20-40); Mean Corpuscular HGB Conc 30.1 g/dl (31.0-35.0); Mean Corpuscular Hemoglobin 24.5 pg (27.0-33.0); Mean Corpuscular Volume 81.6 fL (80-98); Mean Platelet Volume 10.3 fL (9.4-12.3); Monocytes Percent Auto 6.5 % (2-11); Neutrophils Absolute Auto 11.4 X10*3/uL (2.0-8.3); Neutrophils Percent Auto 71.4 % (45-73); Platelet Count 280 X10*3/uL (160-400); Red Blood Count 4.73 X10*6/uL (4.20-5.50); Red Cell Distribution Width 16.8 % (11.0-16.0); White Blood Count 15.9 X10*3/uL (4.8-10.8)
[2021-08-06 07:04] LABS: D Dimer 488 NG/ML
[2021-08-06 07:25] LABS: Alanine Aminotransferase 16 U/L (0-31); Albumin Level 3.8 g/dL (3.5-5.0); Alkaline Phosphatase 64 U/L (39-117); Anion Gap 14 (12-20); Aspartate Amino Transferase 21 U/L (5-31); Bilirubin Direct 0.2 mg/dL (0.0-0.5); Bilirubin Total 0.5 mg/dL (0.0-1.0); Blood Urea Nitrogen 8 mg/dL (9-16); Calcium 9.6 mg/dL (8.4-10.2); Carbon Dioxide 31 mmol/L (22-29); Chloride 93 mmol/L (96-108); Creatinine Clr Calc Pharmacy 101.4; Estimated Glomerular Filt Rate > 60; Glucose Random 159 mg/dL (60-115); Potassium 3.8 mmol/L (3.3-5.1); Sodium 134 mmol/L (135-145); Total Protein 6.4 g/dL (6.5-8.0)
[2021-08-06 07:58] LABS: Glucose, Whole Blood 174 mg/dL (60-115)
[2021-08-06] MEDS: predniSONE 10 MG TABLET 30 MG PO (08:50)
[2021-08-06] MEDS: cloNIDine HCL 0.1 MG TABLET PO ×2 (08:50→20:50)
[2021-08-06] MEDS: lamoTRIgine 25 MG TABLET 50 MG PO ×2 (08:51→20:49)
[2021-08-06] MEDS: Insulin Lispro 100 UNIT/ML 3 ML VIAL SUBCUT ×3 (08:52→17:09)
[2021-08-06] MEDS: Enoxaparin Sodium 40 MG/0.4 ML SYRINGE SUBCUT (08:52)
[2021-08-06] MEDS: 0.9 % Sodium Chloride Flush 3 ML SYRINGE IVFLUSH ×3 (09:05→20:49)
--- NOTE | 2021-08-06 11:16 | PM.IMPN ---
Progress Note: A&P (1) Acute and chronic respiratory failure with hypoxia: Status: Acute <Radha Royal NP - Last Filed: 08/06/21 11:24> (2) Anxiety: Status: Acute <Radha Royal NP - Last Filed: 08/06/21 11:24> (3) COVID-19: Status: Acute <Radha Royal NP - Last Filed: 08/06/21 11:24> Assessment and Plan: This is a 41-year-old Welsh-speaking female with no significant past medical history admitted for COVID-19, requiring ICU leval of care from 07/02 to 07/28 and 11 days of intubation (07/15-07/26) complicated by pneumomediastinum downgraded to IMC on 07/28 and then returned to the ICU the following day and was reintubated for worsening respiratory status. She was extubated 08/01 and downgraded to the medical floor 08/04.? Her hospital course has been complicated by severe anxiety/panic attacks. Acute respiratory failure with hypoxia Secondary to underlying COVID 19 intubated from 07/15 to 07/26; 07/29-08/01 Now tolerating 6LNC sputum cx from 07/17 growing MSSA s/p doxycycline sputum culture was growing filamentous fungus, initially started on voriconazole which was later d/c as it was thought to be colonization Severe anxiety started on lamictal in ICU Was on Precedex drip in ICU, will add clonidine tachycardia ekg with sinus tach likely anxiety contributing check thyroid function repeat ddimer, if significantly elevated would consider CTA breast mass present on admission ct outpatient follow up dvt ppx - lovenox code status - full code Attending-?Mlapah <Radha Royal NP - Last Filed: 08/06/21 11:24> This is a 41-year-old Welsh-speaking female with no significant past medical history admitted for COVID-19, requiring ICU leval of care from 07/02 to 07/28 and 11 days of intubation (07/15-07/26) complicated by pneumomediastinum downgraded to IMC on 07/28 and then returned to the ICU the following day and was reintubated for worsening respiratory status. She was extubated 08/01 and downgraded to the medical floor 08/04.? Her hospital course has been complicated by severe anxiety/panic attacks. Acute respiratory failure with hypoxia Secondary to underlying COVID 19 intubated from 07/15 to 07/26; 07/29-08/01 Now tolerating 6LNC sputum cx from 07/17 growing MSSA s/p doxycycline sputum culture was growing filamentous fungus, initially started on voriconazole which was later d/c as it was thought to be colonization Severe anxiety started on lamictal in ICU Was on Precedex drip in ICU, will add clonidine tachycardia ekg with sinus tach likely anxiety contributing check thyroid function repeat ddimer, if significantly elevated would consider CTA breast mass present on admission ct outpatient follow up dvt ppx - lovenox code status - full code Attending- I saw and evaluated the patient and discussed the care with ADMIN ASSISTANT, . I agree with the findings and plan as documented in the note above. continue weaning off O2 with goal O2 sat of 92 ? <Herbert Dumont MD - Last Filed: 08/06/21 16:46> Subjective Subjective Date of Service: 08/06/21 <Radha Royal NP - Last Filed: 08/06/21 11:24> 08/06/21 <Herbert Dumont MD - Last Filed: 08/06/21 16:46> Review of Systems Follow up covid 19 tx from ICU yesterday feeling better although gets more sob with exertion <Radha Royal NP - Last Filed: 08/06/21 11:24> Physical Exam Vital Signs: Vital Signs: Last Vital Signs Temp 97.2 F 08/06/21 08:00 Pulse 120 H 08/06/21 08:50 Resp 25 H 08/06/21 08:00 BP 120/77 08/06/21 08:50 Pulse Ox 98 08/06/21 08:00 Body Mass Index 23.4 <Radha Royal NP - Last Filed: 08/06/21 11:24> Appearing in no acute distress lungs normal expansion heart regular rate rhythm, clear S1, S2 positive bowel sounds, abdomen is soft, nontender neuro patient is alert x3, no focal deficits <Radha Royal NP - Last Filed: 08/06/21 11:24> Objective Data Current Medications Acetaminophen (Acetaminophen 325 Mg Tablet) 650 mg PO Q6H PRN PRN Reason: Pain, Mild (Pain Scale 1-3) Last Admin: 08/06/21 03:52 Dose: 650 mg Documented by: Albuterol/Ipratropium (Albuterol/Iprat 2.5/0.5mg 3 Ml Ampul.Neb) 3 ml INHALE RQ6H PRN PRN Reason: Wheezing Last Admin: 08/03/21 13:23 Dose: 3 ml Documented by: Clonidine HCl (Clonidine Hcl 0.1 Mg Tablet) 0.1 mg PO BID [facility]; Protocol Last Admin: 08/06/21 08:50 Dose: 0.1 mg Documented by: Dextrose (Dextrose 50 % 25 Gm/50 Ml Vial) 25 gm IVPUSH Q15M PRN; Protocol PRN Reason: per Hypoglycemia Standing Ord. Enoxaparin Sodium (Enoxaparin Sodium 40 Mg/0.4 Ml Syringe) 40 mg SUBCUT Q24H [facility] Last Admin: 08/06/21 08:52 Dose: 40 mg Documented by: Glucose (Glucose Gel 15 Gm Gel..Gram.) 15 gm PO Q15M PRN; Protocol PRN Reason: per Hypoglycemia Standing Ord. Insulin Human Lispro (Insulin Lispro 100 Unit/Ml 3 Ml Vial) 0 unit SUBCUT QIDACHS [facility]; Protocol Last Admin: 08/06/21 08:52 Dose: 2 unit Documented by: Lamotrigine (Lamotrigine 25 Mg Tablet) 50 mg PO BID [facility] Last Admin: 08/06/21 08:51 Dose: 50 mg Documented by: Ondansetron HCl (Ondansetron Hcl 4 Mg/2 Ml Vial) 4 mg IVPUSH Q6H PRN PRN Reason: nausea Last Admin: 08/03/21 10:29 Dose: 4 mg Documented by: Prednisone (Prednisone 10 Mg Tablet) 30 mg PO DAILY [facility] Stop: 08/09/21 08:59 Last Admin: 08/06/21 08:50 Dose: 30 mg Documented by: Sodium Chloride (0.9 % Sodium Chloride Flush 3 Ml Syringe) [facility] Last Admin: 08/06/21 09:05 Dose: 3 ml Documented by: <Radha Royal NP - Last Filed: 08/06/21 11:24> Labs CBC & Chem 7: : 08/06/21 06:37 08/06/21 06:37 <Radha Royal NP - Last Filed: 08/06/21 11:24> Labs: Laboratory Results - last 24 hr 08/05/21 08/05/21 08/05/21 06:37 11:17 16:00 MCV MCH MCHC RDW Plt Count MPV Immature Gran % (Auto) Neut % (Auto) Lymph % (Auto) [place] % (Auto) Eos % (Auto) Baso % (Auto) Lymph # (Auto) [place] # (Auto) Eos # (Auto) Baso # (Auto) Abs Immat Gran (auto) Absolute Neuts (auto) Absolute Nucleated RBC Nucleated RBC % (auto) D-Dimer Anion Gap Estim Creat Clear Calc Estimated GFR POC Glucose 246 H 279 H Random Glucose Calcium Total Bilirubin Direct Bilirubin AST ALT Alkaline Phosphatase Total Protein Albumin TSH 0.41 08/05/21 08/06/21 08/06/21 19:43 06:37 06:37 MCV MCH MCHC RDW Plt Count MPV Immature Gran % (Auto) Neut % (Auto) Lymph % (Auto) [place] % (Auto) Eos % (Auto) Baso % (Auto) Lymph # (Auto) [place] # (Auto) Eos # (Auto) Baso # (Auto) Abs Immat Gran (auto) Absolute Neuts (auto) Absolute Nucleated RBC Nucleated RBC % (auto) D-Dimer 488 Anion Gap 14 Estim Creat Clear Calc 101.4 Estimated GFR > 60 POC Glucose 131 H Random Glucose 159 H Calcium 9.6 Total Bilirubin 0.5 Direct Bilirubin 0.2 AST 21 ALT 16 Alkaline Phosphatase 64 D Total Protein 6.4 L Albumin 3.8 TSH 08/06/21 08/06/21 06:37 07:44 MCV 81.6 MCH 24.5 L MCHC 30.1 L RDW 16.8 H Plt Count 280 MPV 10.3 Immature Gran % (Auto) 0.8 H Neut % (Auto) 71.4 Lymph % (Auto) 16.7 L [place] % (Auto) 6.5 Eos % (Auto) 4.5 H Baso % (Auto) 0.1 Lymph # (Auto) 2.7 [place] # (Auto) 1.0 Eos # (Auto) 0.7 H Baso # (Auto) 0.0 Abs Immat Gran (auto) 0.12 H Absolute Neuts (auto) 11.4 H Absolute Nucleated RBC 0.000 Nucleated RBC % (auto) 0.0 D-Dimer Anion Gap Estim Creat Clear Calc Estimated GFR POC Glucose 174 H Random Glucose Calcium Total Bilirubin Direct Bilirubin AST ALT Alkaline Phosphatase Total Protein Albumin TSH <Radha Royal NP - Last Filed: 08/06/21 11:24> Microbiology Microbiology Results: Microbiology 07/29/21 13:54 Blood - Central Line Blood Culture - Final No growth after 5 days. 07/29/21 13:57 Blood - Central Line Blood Culture - Final No growth after 5 days. 07/29/21 13:44 Sputum - Suctioned Gram Stain - Final 07/29/21 13:44 Sputum - Suctioned Sputum Culture - Preliminary Filamentous fungus 07/29/21 13:44 Urine clean catch - Clean Catch Midstream Urine Culture - Final No growth. 07/17/21 09:48 Sputum - Suctioned Gram Stain - Final 07/17/21 09:48 Sputum - Suctioned Sputum Culture - Final Staphylococcus aureus 07/01/21 00:37 Blood - Venous Blood Culture - Final No growth after 5 days. 07/01/21 00:37 Blood - Venous Blood Culture - Final No growth after 5 days. 07/02/21 15:55 Urine clean catch - Urine ortiz top Urine Culture - Final <Radha Royal NP - Last Filed: 08/06/21 11:24> Quality Stroke Does the patient have a stroke diagnosis?: No <Radha Royal NP - Last Filed: 08/06/21 11:24> VTE Prior VTE?: No <Radha Royal NP - Last Filed: 08/06/21 11:24> VTE Risk Level:: Medical - moderate - high <Radha Royal NP - Last Filed: 08/06/21 11:24> VTE Device Contraindication: Treatment Not Indicated <Radha Royal NP - Last Filed: 08/06/21 11:24> VTE Drug Contraindication: N/A - Med Ordered <Radha Royal NP - Last Filed: 08/06/21 11:24>
[2021-08-06 11:42] LABS: Glucose, Whole Blood 203 mg/dL (60-115)
[2021-08-06 16:23] LABS: Glucose, Whole Blood 195 mg/dL (60-115)
[2021-08-06 20:15] LABS: Glucose, Whole Blood 143 mg/dL (60-115)
[2021-08-07] VITALS (8 sets, daily range): BP systolic 114–126; BP diastolic 75–84; PULSE 98–135; RESP 18–22; TEMP 36.3–36.7; O2SAT 93–100
[2021-08-07] MEDS: Acetaminophen 325 MG TABLET 650 MG PO ×2 (01:40→21:49)
[2021-08-07 07:40] LABS: Glucose, Whole Blood 155 mg/dL (60-115)
[2021-08-07] MEDS: predniSONE 10 MG TABLET 30 MG PO (08:01)
[2021-08-07] MEDS: cloNIDine HCL 0.1 MG TABLET PO ×2 (08:03→21:50)
[2021-08-07] MEDS: lamoTRIgine 25 MG TABLET 50 MG PO ×2 (08:03→21:50)
[2021-08-07] MEDS: Insulin Lispro 100 UNIT/ML 3 ML VIAL SUBCUT ×3 (08:04→17:06)
[2021-08-07] MEDS: Enoxaparin Sodium 40 MG/0.4 ML SYRINGE SUBCUT (08:05)
[2021-08-07 11:20] LABS: Glucose, Whole Blood 160 mg/dL (60-115)
[2021-08-07] MEDS: 0.9 % Sodium Chloride Flush 3 ML SYRINGE IVFLUSH ×3 (12:18→21:52)
--- NOTE | 2021-08-07 13:28 | PM.IMPN ---
Progress Note: A&P (1) Acute and chronic respiratory failure with hypoxia: Status: Acute <Radha Royal NP - Last Filed: 08/07/21 13:38> (2) Anxiety: Status: Acute <Radha Royal NP - Last Filed: 08/07/21 13:38> (3) COVID-19: Status: Acute <Radha Royal NP - Last Filed: 08/07/21 13:38> Assessment and Plan: This is a 41-year-old Hungarian-speaking female with no significant past medical history admitted for COVID-19, requiring ICU leval of care from 07/02 to 07/28 and 11 days of intubation (07/15-07/26) complicated by pneumomediastinum downgraded to IMC on 07/28 and then returned to the ICU the following day and was reintubated for worsening respiratory status. She was extubated 08/01 and downgraded to the medical floor 08/04.? Her hospital course has been complicated by severe anxiety/panic attacks. Acute respiratory failure with hypoxia Secondary to underlying COVID 19 intubated from 07/15 to 07/26; 07/29-08/01 Now tolerating 4-6LNC sputum cx from 07/17 growing MSSA s/p doxycycline sputum culture was growing filamentous fungus, initially started on voriconazole which was later d/c as it was thought to be colonization Severe anxiety started on lamictal in ICU Was on Precedex drip in ICU, will add clonidine tachycardia ekg with sinus tach likely anxiety contributing check thyroid function repeat ddimer, if significantly elevated would consider CTA breast mass present on admission ct outpatient follow up dvt ppx - lovenox code status - full code Attending-?Mlapah?? <Radha Royal NP - Last Filed: 08/07/21 13:38> This is a 41-year-old Hungarian-speaking female with no significant past medical history admitted for COVID-19, requiring ICU leval of care from 07/02 to 07/28 and 11 days of intubation (07/15-07/26) complicated by pneumomediastinum downgraded to IMC on 07/28 and then returned to the ICU the following day and was reintubated for worsening respiratory status. She was extubated 08/01 and downgraded to the medical floor 08/04.? Her hospital course has been complicated by severe anxiety/panic attacks. Acute respiratory failure with hypoxia Secondary to underlying COVID 19 intubated from 07/15 to 07/26; 07/29-08/01 Now tolerating 4-6LNC sputum cx from 07/17 growing MSSA s/p doxycycline sputum culture was growing filamentous fungus, initially started on voriconazole which was later d/c as it was thought to be colonization Severe anxiety started on lamictal in ICU Was on Precedex drip in ICU, will add clonidine tachycardia ekg with sinus tach likely anxiety contributing check thyroid function repeat ddimer, if significantly elevated would consider CTA breast mass present on admission ct outpatient follow up dvt ppx - lovenox code status - full code Attending-?Julia?? i saw/examined pt, discussed findings, a/p with DOCUMENTATION SPECIALIST and I agree with above on date of service stated by DOCUMENTATION SPECIALIST <Herbert Dumont MD - Last Filed: 08/10/21 15:18> Subjective Subjective Date of Service: 08/07/21 <Radha Royal NP - Last Filed: 08/07/21 13:38> 08/10/21 <Herbert Dumont MD - Last Filed: 08/10/21 15:18> Review of Systems Follow up covid 19 some sob with exertion <Radha Royal NP - Last Filed: 08/07/21 13:38> Physical Exam Vital Signs: Vital Signs: Last Vital Signs Temp 97.7 F 08/07/21 11:20 Pulse 117 H 08/07/21 11:20 Resp 20 08/07/21 11:20 BP 120/75 08/07/21 11:20 Pulse Ox 93 08/07/21 11:20 Body Mass Index 23.4 <Radha Royal NP - Last Filed: 08/07/21 13:38> Appearing in no acute distress lungs normal expansion heart regular rate rhythm, clear S1, S2 positive bowel sounds, abdomen is soft, nontender neuro patient is alert x3, no focal deficits <Radha Royal NP - Last Filed: 08/07/21 13:38> Objective Data Current Medications Acetaminophen (Acetaminophen 325 Mg Tablet) 650 mg PO Q6H PRN PRN Reason: Pain, Mild (Pain Scale 1-3) Last Admin: 08/07/21 01:40 Dose: 650 mg Documented by: Albuterol/Ipratropium (Albuterol/Iprat 2.5/0.5mg 3 Ml Ampul.Neb) 3 ml INHALE RQ6H PRN PRN Reason: Wheezing Last Admin: 08/03/21 13:23 Dose: 3 ml Documented by: Clonidine HCl (Clonidine Hcl 0.1 Mg Tablet) 0.1 mg PO BID [facility]; Protocol Last Admin: 08/07/21 08:03 Dose: 0.1 mg Documented by: Dextrose (Dextrose 50 % 25 Gm/50 Ml Vial) 25 gm IVPUSH Q15M PRN; Protocol PRN Reason: per Hypoglycemia Standing Ord. Enoxaparin Sodium (Enoxaparin Sodium 40 Mg/0.4 Ml Syringe) 40 mg SUBCUT Q24H [facility] Last Admin: 08/07/21 08:05 Dose: 40 mg Documented by: Glucose (Glucose Gel 15 Gm Gel..Gram.) 15 gm PO Q15M PRN; Protocol PRN Reason: per Hypoglycemia Standing Ord. Insulin Human Lispro (Insulin Lispro 100 Unit/Ml 3 Ml Vial) 0 unit SUBCUT QIDACHS [facility]; Protocol Last Admin: 08/07/21 12:18 Dose: 2 unit Documented by: Lamotrigine (Lamotrigine 25 Mg Tablet) 50 mg PO BID [facility] Last Admin: 08/07/21 08:03 Dose: 50 mg Documented by: Ondansetron HCl (Ondansetron Hcl 4 Mg/2 Ml Vial) 4 mg IVPUSH Q6H PRN PRN Reason: nausea Last Admin: 08/03/21 10:29 Dose: 4 mg Documented by: Prednisone (Prednisone 10 Mg Tablet) 30 mg PO DAILY [facility] Stop: 08/09/21 08:59 Last Admin: 08/07/21 08:01 Dose: 30 mg Documented by: Sodium Chloride (0.9 % Sodium Chloride Flush 3 Ml Syringe) [address] [facility] Last Admin: 08/07/21 12:18 Dose: 3 ml Documented by: <Radha Royal NP - Last Filed: 08/07/21 13:38> Labs CBC & Chem 7: : 08/10/21 06:51 08/10/21 06:51 <Radha Royal NP - Last Filed: 08/07/21 13:38> Labs: Laboratory Results - last 24 hr 10/30/21 10/30/21 10/31/21 16:07 20:08 07:32 POC Glucose 195 H 143 H 155 H 08/07/21 10:59 POC Glucose 160 H <Radha Royal NP - Last Filed: 08/07/21 13:38> Microbiology Microbiology Results: Microbiology 07/29/21 13:54 Blood - Central Line Blood Culture - Final No growth after 5 days. 07/29/21 13:57 Blood - Central Line Blood Culture - Final No growth after 5 days. 07/29/21 13:44 Sputum - Suctioned Gram Stain - Final 07/29/21 13:44 Sputum - Suctioned Sputum Culture - Preliminary Filamentous fungus 07/29/21 13:44 Urine clean catch - Clean Catch Midstream Urine Culture - Final No growth. 07/17/21 09:48 Sputum - Suctioned Gram Stain - Final 07/17/21 09:48 Sputum - Suctioned Sputum Culture - Final Staphylococcus aureus 07/01/21 00:37 Blood - Venous Blood Culture - Final No growth after 5 days. 07/01/21 00:37 Blood - Venous Blood Culture - Final No growth after 5 days. 07/02/21 15:55 Urine clean catch - Urine ortiz top Urine Culture - Final <Radha Royal NP - Last Filed: 08/07/21 13:38> Quality Stroke Does the patient have a stroke diagnosis?: No <Radha Royal NP - Last Filed: 08/07/21 13:38> VTE Prior VTE?: No <Radha Royal NP - Last Filed: 08/07/21 13:38> VTE Risk Level:: Medical - moderate - high <Radha Royal NP - Last Filed: 08/07/21 13:38> VTE Device Contraindication: Treatment Not Indicated <Radha Royal NP - Last Filed: 08/07/21 13:38> VTE Drug Contraindication: N/A - Med Ordered <Radha Royal NP - Last Filed: 08/07/21 13:38>
[2021-08-07 16:12] LABS: Glucose, Whole Blood 214 mg/dL (60-115)
[2021-08-07 21:08] LABS: Glucose, Whole Blood 133 mg/dL (60-115)
[2021-08-08] VITALS (9 sets, daily range): BP systolic 107–127; BP diastolic 69–84; PULSE 97–135; RESP 18–26; TEMP 35.7–36.7; O2SAT 96–100
[2021-08-08 07:31] LABS: Glucose, Whole Blood 132 mg/dL (60-115)
[2021-08-08] MEDS: 0.9 % Sodium Chloride Flush 3 ML SYRINGE IVFLUSH ×3 (09:17→21:02)
[2021-08-08] MEDS: lamoTRIgine 25 MG TABLET 50 MG PO (09:17)
[2021-08-08] MEDS: predniSONE 10 MG TABLET 30 MG PO (09:17)
[2021-08-08] MEDS: Enoxaparin Sodium 40 MG/0.4 ML SYRINGE SUBCUT (09:17)
[2021-08-08] MEDS: cloNIDine HCL 0.1 MG TABLET PO ×2 (09:19→21:00)
--- NOTE | 2021-08-08 09:37 | MHC.CM.PN ---
dc plan is to home if o2 demands lessen vs str for high o2 demands. cm to cont. to follow.
--- NOTE | 2021-08-08 10:30 | P.CNPS_ITS ---
History of Present Illness Date of Service: 08/08/21 Chief Complaint: Covid PNA Reason for Consult: severe anxiety Requesting physician: Radha Royal Discussed with referring provider: Yes Sources of Information: patient interviewed, chart reviewed and crisis/core team assessment reviewed Additional Sources of Information: Patient's RN, Cristina COLBERT Narrative: Patient is 41-year-old [place]araguan-speaking female who presented to [facility] ED on 06/30/2021 with COVID. She has had severe anxiety while inpatient. Was in ICU, has since been extubated, transferred to [facility]. Has been seen by psychiatry on 07/28/21 for symptoms of painc disorder, at which time it was recommended that patient be started on zyprexa 5mg TID and [id number] BID. Prior to that date, she had already been trialled on ativan, seroquel, klonopin, and IM zyprexa, with moderate effect. She was started on Lamictal 50 mg daily while in ICU. Patient denies any type of history of mood disorder diagnosis, including depression, bipolar disorder, anxiety disorder. She denies any history of medications for these types of disorders. She denies any type of hallucinations, any type of thoughts of harm to self or others. This keno writer / runner met with patient this morning along with Nicaraguan-speaking aircraft de icer installer. She was sitting up in chair at bedside. Was fully alert and oriented. She reports that she does not wish to continue with the psychiatric medications as scheduled. When medications were discussed in further detail, she states that she does not want to take anything that is prescribed, but would rather have something that she can take when she feels anxious. She explains that she does not feel anxious at all today, and rates her level of anxiety as a 0 on scale 1-10, with 10 being the highest. She reports that she feels much better, and believes her anxiety and panic was related to having COVID and being unable to [place]. She also reports that being in ICU was giving her more anxiety. When Lamictal was explained, she stated that she does not want to take it. When clonidine was explained, she said that she will continue to take it. When asked if she would like to have a dose that is considered a p.r.n., she was agreeable. Please note, patient was fully alert and oriented x4, showed no signs of any type of impaired capacity at this time. Was fully cooperative with interview, appears fully capable of making decision regarding medications and treatment going forward. Past Psychiatric History: -No hx of previous psych treatment. During this hospitalization, she has tried ativan, seroquel 75 mg BID, and klonopin 1 mg TID for sx of anxiety. Started on lamictal 50mg several days ago. Medical Evaluation Reviewed: Yes Personal & Social History: Patient is , lives with . Review of Systems Review of Systems Yes all other systems are reviewed and are negative Constitutional: Reports as per HPI and Reports no additional constitutional complaints [facility] Medical History Patient denies significant medical history Surgical History H/O breast biopsy History of laparoscopic cholecystectomy History of nephrolithiasis Family History: not reported Social History: , lives with . Has young child. Substance History: none reported Trauma History: none reported Diagnostics Vital Signs (24Hr): Vital Signs - 24 hr 08/07/21 11:20 08/07/21 15:30 08/07/21 20:00 Temperature 97.7 F 97.5 F 97.4 F Pulse Rate 117 H 135 H 124 H Respiratory Rate 20 20 22 H Blood Pressure 120/75 126/83 122/80 Pulse Oximetry 93 97 99 08/07/21 21:50 08/07/21 23:34 08/08/21 03:54 Temperature 97.5 F 98.0 F Pulse Rate 124 H 121 H 117 H Respiratory Rate 20 18 Blood Pressure 120/77 127/69 Pulse Oximetry 98 08/08/21 07:56 08/08/21 09:19 08/08/21 09:56 Temperature 97.1 F Pulse Rate 107 H 135 H 135 H Respiratory Rate 20 Blood Pressure 123/82 123/82 123/82 Pulse Oximetry 99 Body Mass Index 23.4 Labs Results: 08/06/21 06:37 08/06/21 06:37 Labs: Laboratory Results - last 48 hr 08/06/21 08/06/21 08/06/21 11:29 16:07 20:08 POC Glucose 203 H 195 H 143 H 08/07/21 08/07/21 08/07/21 07:32 10:59 16:07 POC Glucose 155 H 160 H 214 H 08/07/21 08/08/21 20:59 07:26 POC Glucose 133 H 132 H Imaging Radiology Impressions: ITS Impressions Chest X-Ray 06/30/21 18:43 IMPRESSION: Multifocal bilateral airspace disease similar prior chest x-ray June 29, 2021. Imaging features can be seen with COVID-19 pneumonia. Although these features are nonspecific and can be occur with a variety of infectious and noninfectious processes. Chest CTA 06/30/21 21:33 IMPRESSION: 1. No central pulmonary embolus identified. Incomplete assessment of the distal vessels due to respiratory motion artifact, and therefore distal emboli cannot be entirely excluded. 2. Extensive bilateral groundglass opacities consistent with Covid pneumonia. 3. Bilateral breast masses, for which correlation with recent or follow-up breast imaging is recommended. VTE: negative Chest X-Ray 07/06/21 00:09 IMPRESSION: Increased bilateral airspace opacities. Commonly reported imaging features of (COVID-19 or viral) pneumonia are present. Other processes such as influenza pneumonia and organizing pneumonia, as can be seen with drug toxicity and connective tissue disease, can cause a similar imaging pattern. Chest X-Ray 07/08/21 08:48 IMPRESSION: Bilateral airspace opacity/infiltrates, stable. Lungs are hypoexpanded. Chest CTA 07/08/21 14:52 IMPRESSION: * No pulmonary embolism. * Worsening bilateral airspace disease compatible with COVID pneumonitis with increasingly coalescent opacity within the dependent lower lobes bilaterally. * New moderate pneumomediastinum. * Hepatic steatosis. VTE: negative This critical result was discussed with Dr Smith at 07/08/2021 4:52 PM and it was ascertained that the content and urgency of the report was understood at the time of direct communication. Chest X-Ray 07/10/21 09:35 IMPRESSION: 1. Persistent diffuse airspace opacities with more uniform appearance. 2. Mild interval decrease in pneumomediastinum. Chest X-Ray 07/13/21 05:45 IMPRESSION: No significant change from prior. Small pleural effusions. Diffuse bilateral airspace opacities. Chest X-Ray 07/15/21 05:00 IMPRESSION: Similar appearance of hazy opacity throughout both lungs. Chest X-Ray 07/15/21 20:38 IMPRESSION: Endotracheal tube terminates at the level of the hany. Recommend retraction. Right internal jugular central venous catheter terminates over the right atrium. This can also be retracted. Persistent hazy opacity throughout both lungs, similar to prior. This critical result was discussed with Matt Lombardi NP by telephone at 07/15/2021 9:56 PM and it was ascertained that the content and urgency of the report was understood at the time of direct communication. Chest X-Ray 07/16/21 05:00 IMPRESSION: Endotracheal tube terminating 4.5 cm above the hany. Similar appearance of the lungs with diffuse bilateral opacities. Chest X-Ray 07/17/21 05:00 IMPRESSION: Endotracheal tube terminates 3.5 cm above the hany. Worsening bilateral opacities. Chest X-Ray 07/20/21 12:21 IMPRESSION: Satisfactory position of support line and tubes. Diffuse fine bilateral airspace disease suggestive of pneumonitis. Similar to Chest X-Ray 07/25/21 08:40 IMPRESSION: Hypoexpanded lungs with bilateral fine interstitial prominence similar to previous study. Support lines and catheters are stable and unchanged to 07/20/2021. Chest X-Ray 07/29/21 09:24 IMPRESSION: Worsening diffuse interstitial lung disease which may be infectious/inflammatory in nature or related to pulmonary edema of cardiogenic or noncardiogenic etiology. Chest X-Ray 07/29/21 11:45 IMPRESSION: No significant change in diffuse bilateral disease. Interval placement of endotracheal tube, enteric tube, and central venous catheter as described. Chest X-Ray 07/31/21 06:55 IMPRESSION: 1. No significant change in positioning of lines and tubes. 2. Persistent diffuse bilateral opacities, slightly more pronounced on the right side than the left. There may be an associated trace right pleural effusion. Mental Status Exam Mental Status Exam Narrative: Patient sitting up in chair at bedside. In no apparent distress. No involuntary movements, motor activity calm. Posture within normal limits. Ambulation not observed. Denies any type of thoughts of harm to self or others, denies any type of delusional thoughts or hallucinations, did not appear to be responding to any internal stimuli during encounter. Patient Appearance: Well Grooomed, Fatigued and Appropriate Patient Orientation: Person, Place, Time and Situation Level of Consciousness: Awake, Appropriate and Alert Patient Behavior: Appropriate, Cooperative and Good Eye Contact Mood Description: Calm and Appropriate Affect Description: Calm and Appropriate Patient Cognition Impaired: No Ability to Follow Directions: Excellent Speech Pattern: Clear, Appropriate, Spontaneous Speech and Coherent Memory Description: Intact Hallucinations: None Delusions: Not Present Thought Process: Intact Judgement: Good Medications Medications Current Medications Acetaminophen (Acetaminophen 325 Mg Tablet) 650 mg PO Q6H PRN PRN Reason: Pain, Mild (Pain Scale 1-3) Last Admin: 08/07/21 21:49 Dose: 650 mg Documented by: Albuterol/Ipratropium (Albuterol/Iprat 2.5/0.5mg 3 Ml Ampul.Neb) 3 ml INHALE RQ6H PRN PRN Reason: Wheezing Last Admin: 08/03/21 13:23 Dose: 3 ml Documented by: Clonidine HCl (Clonidine Hcl 0.1 Mg Tablet) 0.1 mg PO BID [facility]; Protocol Last Admin: 08/08/21 09:19 Dose: 0.1 mg Documented by: Clonidine HCl (Clonidine Hcl 0.1 Mg Tablet) 0.05 mg PO DAILY PRN; Protocol PRN Reason: anxiety Dextrose (Dextrose 50 % 25 Gm/50 Ml Vial) 25 gm IVPUSH Q15M PRN; Protocol PRN Reason: per Hypoglycemia Standing Ord. Enoxaparin Sodium (Enoxaparin Sodium 40 Mg/0.4 Ml Syringe) 40 mg SUBCUT Q24H [facility] Last Admin: 08/08/21 09:17 Dose: 40 mg Documented by: Glucose (Glucose Gel 15 Gm Gel..Gram.) 15 gm PO Q15M PRN; Protocol PRN Reason: per Hypoglycemia Standing Ord. Insulin Human Lispro (Insulin Lispro 100 Unit/Ml 3 Ml Vial) 0 unit SUBCUT QIDACHS [facility]; Protocol Last Admin: 08/08/21 07:37 Dose: Not Given Documented by: Ondansetron HCl (Ondansetron Hcl 4 Mg/2 Ml Vial) 4 mg IVPUSH Q6H PRN PRN Reason: nausea Last Admin: 08/03/21 10:29 Dose: 4 mg Documented by: Prednisone (Prednisone 10 Mg Tablet) 30 mg PO DAILY [facility] Stop: 08/09/21 08:59 Last Admin: 08/08/21 09:17 Dose: 30 mg Documented by: Sodium Chloride (0.9 % Sodium Chloride Flush 3 Ml Syringe) 3 ml IVFLUSH QSHIFT [facility] Last Admin: 08/08/21 09:17 Dose: 3 ml Documented by: Allergies Allergies Allergy/AdvReac Type Severity Reaction Status Date / Time ketamine Allergy Intermediate Rash Verified 07/31/21 01:39 oxycodone [Percocet] AdvReac Unknown vomiting Verified 06/30/21 18:31 Assessment & Plan Assessment & Plan (1) Anxiety: Status: Acute Code(s): F41.9 - Anxiety disorder, unspecified Assessment and Plan: Patient reports she does not want to continued with scheduled psychiatric medications such as Lamictal, as she states she does not feel she needs them. She reports that her anxiety was related to her respiratory illness (Covid), and that normally she does not have anxiety. (2) Panic attack as reaction to stress: Status: Acute Code(s): F41.0 - Panic disorder [episodic paroxysmal anxiety]; F43.0 - Acute stress reaction Assessment and Plan: Patient reports that current medication clonidine appears to be helping with any type of panic concerns. She is willing to continue clonidine at this time, and is willing to trial a p.r.n.. Assessment and Plan: 1. Discontinue lamictal. 2. Continue scheduled clonidine 0.1mg scheduled. 3. Add clonidine 0.05 once daily prn for anxiety. I have shared my recommendations with Radha Royal NP. Thank you for this consultation. If you have any further questions or concerns, please do not hesitate to contact psychiriatry. I spent minutes with the patient and/or on the patient floor today, greater than?50% of which was spent counseling/coordinating care. Patient educated on: diagnosis, medication risk/benefits and therapeutic strategies Informed Consent: understands
[2021-08-08 11:26] LABS: Glucose, Whole Blood 285 mg/dL (60-115)
--- NOTE | 2021-08-08 11:29 | PM.IMPN ---
Progress Note: A&P (1) Acute and chronic respiratory failure with hypoxia: Status: Acute (2) Acute respiratory distress syndrome (ARDS) due to COVID-19 virus: Status: Acute (3) Tachycardia: Status: Acute Assessment and Plan: This is a 41-year-old Indonesian-speaking female with no significant past medical history admitted for COVID-19, requiring ICU leval of care from 07/02 to 07/28 and 11 days of intubation (07/15-07/26) complicated by pneumomediastinum downgraded to IMC on 07/28 and then returned to the ICU the following day and was reintubated for worsening respiratory status. She was extubated 08/01 and downgraded to the medical floor 08/04.? Her hospital course has been complicated by severe anxiety/panic attacks. Acute respiratory failure with hypoxia Secondary to underlying COVID 19 intubated from 07/15 to 07/26; 07/29-08/01 Now tolerating 4-6LNC sputum cx from 07/17 growing MSSA s/p doxycycline sputum culture was growing filamentous fungus, initially started on voriconazole which was later d/c as it was thought to be colonization Severe anxiety. Better started on lamictal in ICU, now stopped will continue with clonidine Tachycardia. ekg with sinus tach likely anxiety contributing normal TSH Check CTA breast mass present on admission ct outpatient follow up dvt ppx - lovenox code status - full code Attending- ? Subjective Subjective Date of Service: 08/08/21 Review of Systems Follow up covid 19 Feels better with anxiety only sob and fatigued with movement Physical Exam Vital Signs: Vital Signs: Last Vital Signs Temp 96.3 F L 08/08/21 11:24 Pulse 124 H 08/08/21 11:24 Resp 20 08/08/21 11:24 BP 116/78 08/08/21 11:24 Pulse Ox 96 08/08/21 11:24 Body Mass Index 23.4 Appearing in no acute distress lung sounds are clear to auscultation heart regular rate rhythm, clear S1, S2 positive bowel sounds, abdomen is soft, nontender neuro patient is alert x3, no focal deficits Objective Data Current Medications Acetaminophen (Acetaminophen 325 Mg Tablet) 650 mg PO Q6H PRN PRN Reason: Pain, Mild (Pain Scale 1-3) Last Admin: 08/07/21 21:49 Dose: 650 mg Documented by: Albuterol/Ipratropium (Albuterol/Iprat 2.5/0.5mg 3 Ml Ampul.Neb) 3 ml INHALE RQ6H PRN PRN Reason: Wheezing Last Admin: 08/03/21 13:23 Dose: 3 ml Documented by: Clonidine HCl (Clonidine Hcl 0.1 Mg Tablet) 0.1 mg PO BID [facility]; Protocol Last Admin: 08/08/21 09:19 Dose: 0.1 mg Documented by: Clonidine HCl (Clonidine Hcl 0.1 Mg Tablet) 0.05 mg PO DAILY PRN; Protocol PRN Reason: anxiety Dextrose (Dextrose 50 % 25 Gm/50 Ml Vial) 25 gm IVPUSH Q15M PRN; Protocol PRN Reason: per Hypoglycemia Standing Ord. Enoxaparin Sodium (Enoxaparin Sodium 40 Mg/0.4 Ml Syringe) 40 mg SUBCUT Q24H [facility] Last Admin: 08/08/21 09:17 Dose: 40 mg Documented by: Glucose (Glucose Gel 15 Gm Gel..Gram.) 15 gm PO Q15M PRN; Protocol PRN Reason: per Hypoglycemia Standing Ord. Insulin Human Lispro (Insulin Lispro 100 Unit/Ml 3 Ml Vial) 0 unit SUBCUT QIDACHS [facility]; Protocol Last Admin: 08/08/21 07:37 Dose: Not Given Documented by: Ondansetron HCl (Ondansetron Hcl 4 Mg/2 Ml Vial) 4 mg IVPUSH Q6H PRN PRN Reason: nausea Last Admin: 08/03/21 10:29 Dose: 4 mg Documented by: Prednisone (Prednisone 10 Mg Tablet) 30 mg PO DAILY [facility] Stop: 08/09/21 08:59 Last Admin: 08/08/21 09:17 Dose: 30 mg Documented by: Sodium Chloride (0.9 % Sodium Chloride Flush 3 Ml Syringe) 3 ml IVFLUSH QSHIFT [facility] Last Admin: 08/08/21 09:17 Dose: 3 ml Documented by: Labs CBC & Chem 7: 08/06/21 06:37 08/06/21 06:37 Labs: Laboratory Results - last 24 hr 08/07/21 08/07/21 08/08/21 16:07 20:59 07:26 POC Glucose 214 H 133 H 132 H 08/08/21 11:21 POC Glucose 285 H Microbiology Microbiology Results: Microbiology 07/29/21 13:54 Blood - Central Line Blood Culture - Final No growth after 5 days. 07/29/21 13:57 Blood - Central Line Blood Culture - Final No growth after 5 days. 07/29/21 13:44 Sputum - Suctioned Gram Stain - Final 07/29/21 13:44 Sputum - Suctioned Sputum Culture - Preliminary Filamentous fungus 07/29/21 13:44 Urine clean catch - Clean Catch Midstream Urine Culture - Final No growth. 07/17/21 09:48 Sputum - Suctioned Gram Stain - Final 07/17/21 09:48 Sputum - Suctioned Sputum Culture - Final Staphylococcus aureus 07/01/21 00:37 Blood - Venous Blood Culture - Final No growth after 5 days. 07/01/21 00:37 Blood - Venous Blood Culture - Final No growth after 5 days. 07/02/21 15:55 Urine clean catch - Urine ortiz top Urine Culture - Final Quality Stroke Does the patient have a stroke diagnosis?: No VTE Prior VTE?: No VTE Risk Level:: Medical - moderate - high VTE Device Contraindication: Treatment Not Indicated VTE Drug Contraindication: N/A - Med Ordered
[2021-08-08] MEDS: Insulin Lispro 100 UNIT/ML 3 ML VIAL SUBCUT ×3 (11:34→21:00)
--- NOTE | 2021-08-08 12:12 | MHC.SLORD ---
Speech Language Pathology Order Status: BOOK PACKER spoke with RN this morning who reports patient is NPO for 3 hours for CTA. Patient is on CHOPPED/ADVANCED (NDD3) solids and THIN liquids. RN reports patient was sitting up and eating breakfast without difficulty this morning. BOOK PACKER to follow up tomorrow morning.
[2021-08-08] MEDS: iohexoL 350 MG/ML 100 ML INFUS..BTL IV (12:40)
--- NOTE | 2021-08-08 14:02 | MHC.CLN ---
F/U PO REMAINS VARIABLE DIET ADVANCED TO CHOPPED (NDD3) PT RECEIVING ENSURE TID TO PROVIDE 1050KCALS, 60G PROTEIN CONTINUE TO MONITOR PO INTAKE CLOSELY
[2021-08-08 16:25] LABS: Glucose, Whole Blood 189 mg/dL (60-115)
--- NOTE | 2021-08-08 17:27 | PC.NURSE ---
OOB TO RECLINER MOST OF THE DAY. MAX ASSIST TO MOVE. DENIES PAIN. VSS. ST ON TELE HIGH 130S - BUCKLE ASSEMBLER AWARE. SENT FOR CTA TO R/O PE. TOLERATING 4L NC WELL. UPDATED BY THIS RN THROUGHOUT THE DAY.
[2021-08-08 20:16] LABS: Glucose, Whole Blood 155 mg/dL (60-115)
[2021-08-09] VITALS (11 sets, daily range): BP systolic 105–126; BP diastolic 59–85; PULSE 80–130; RESP 19–25; TEMP 36.1–36.9; O2SAT 8–100
[2021-08-09] MEDS: Acetaminophen 325 MG TABLET 650 MG PO ×2 (03:21→16:03)
[2021-08-09 07:37] LABS: Glucose, Whole Blood 115 mg/dL (60-115)
[2021-08-09 09:05] LABS: Hematocrit 38.3 % (37.0-47.0); Hemoglobin 11.6 g/dl (12.0-16.0); Mean Corpuscular HGB Conc 30.3 g/dl (31.0-35.0); Mean Corpuscular Hemoglobin 24.7 pg (27.0-33.0); Mean Corpuscular Volume 81.5 fL (80.0-98.0); Mean Platelet Volume 9.8 fL (9.4-12.3); Platelet Count 413 X10*3/uL (160-400); Red Cell Distribution Width 16.7 % (11.0-16.0); White Blood Count 15.6 X10*3/uL (4.8-10.8)
[2021-08-09] MEDS: 0.9 % Sodium Chloride Flush 3 ML SYRINGE IVFLUSH ×2 (09:14→16:41)
[2021-08-09] MEDS: Enoxaparin Sodium 40 MG/0.4 ML SYRINGE SUBCUT (09:14)
[2021-08-09] MEDS: cloNIDine HCL 0.1 MG TABLET PO (09:15)
--- NOTE | 2021-08-09 10:43 | PM.IMPN ---
Progress Note: A&P (1) Tachycardia: Status: Acute (2) Acute and chronic respiratory failure with hypoxia: Status: Acute (3) COVID-19: Status: Acute Assessment and Plan: This is a 41-year-old Bulgarian-speaking female with no significant past medical history admitted for COVID-19, requiring ICU leval of care from 07/02 to 07/28 and 11 days of intubation (07/15-07/26) complicated by pneumomediastinum downgraded to IMC on 07/28 and then returned to the ICU the following day and was reintubated for worsening respiratory status. She was extubated 08/01 and downgraded to the medical floor 08/04.? Her hospital course has been complicated by severe anxiety/panic attacks. Tachycardia. ekg with sinus tach concern for POTS type symptoms in COVID 19 patient start propranol 40 mg daily give 1 liter IV fluids check orthostatic blood pressures if no improvement consult cardiology normal TSH CTA negative for PE clonidine stopped Acute respiratory failure with hypoxia Secondary to underlying COVID 19 intubated from 07/15 to 07/26; 07/29-08/01 Now tolerating 4-6LNC sputum cx from 07/17 growing MSSA s/p doxycycline sputum culture was growing filamentous fungus, initially started on voriconazole which was later d/c as it was thought to be colonization Severe anxiety. denies started on lamictal in ICU, now stopped breast mass present on admission ct outpatient follow up dvt ppx - lovenox code status - full code Attending- Subjective Subjective Date of Service: 08/09/21 Review of Systems Follow up covid 19 breathing is better feels heart rate pounding denies chest pain Physical Exam Vital Signs: Vital Signs: Last Vital Signs Temp 97.7 F 08/09/21 08:00 Pulse 107 H 08/09/21 09:15 Resp 22 H 08/09/21 08:00 BP 126/85 08/09/21 09:15 Pulse Ox 100 08/09/21 09:09 Body Mass Index 23.4 Appearing in no acute distress lungs normal expansion heart regular rate rhythm, clear S1, S2 positive bowel sounds, abdomen is soft, nontender neuro patient is alert x3, no focal deficits Objective Data Current Medications Acetaminophen (Acetaminophen 325 Mg Tablet) 650 mg PO Q6H PRN PRN Reason: Pain, Mild (Pain Scale 1-3) Last Admin: 08/09/21 03:21 Dose: 650 mg Documented by: Albuterol/Ipratropium (Albuterol/Iprat 2.5/0.5mg 3 Ml Ampul.Neb) 3 ml INHALE RQ6H PRN PRN Reason: Wheezing Last Admin: 08/03/21 13:23 Dose: 3 ml Documented by: Clonidine HCl (Clonidine Hcl 0.1 Mg Tablet) 0.1 mg PO BID [facility]; Protocol Last Admin: 08/09/21 09:15 Dose: 0.1 mg Documented by: Dextrose (Dextrose 50 % 25 Gm/50 Ml Vial) 25 gm IVPUSH Q15M PRN; Protocol PRN Reason: per Hypoglycemia Standing Ord. Enoxaparin Sodium (Enoxaparin Sodium 40 Mg/0.4 Ml Syringe) 40 mg SUBCUT Q24H [facility] Last Admin: 08/09/21 09:14 Dose: 40 mg Documented by: Glucose (Glucose Gel 15 Gm Gel..Gram.) 15 gm PO Q15M PRN; Protocol PRN Reason: per Hypoglycemia Standing Ord. Sodium Chloride (Ns) 1,000 mls @ 999 mls/hr IVCONT .Q1H1M [facility] Stop: 08/09/21 11:45 Insulin Human Lispro (Insulin Lispro 100 Unit/Ml 3 Ml Vial) 0 unit SUBCUT QIDACHS [facility]; Protocol Last Admin: 08/09/21 07:46 Dose: Not Given Documented by: Ondansetron HCl (Ondansetron Hcl 4 Mg/2 Ml Vial) 4 mg IVPUSH Q6H PRN PRN Reason: nausea Last Admin: 08/03/21 10:29 Dose: 4 mg Documented by: Propranolol HCl (Propranolol Hcl 40 Mg Tablet) 40 mg PO BID [facility]; Protocol Sodium Chloride (0.9 % Sodium Chloride Flush 3 Ml Syringe) 3 ml IVFLUSH QSHIFT [facility] Last Admin: 08/09/21 09:14 Dose: 3 ml Documented by: Labs CBC & Chem 7: 08/09/21 08:46 08/06/21 06:37 Labs: Laboratory Results - last 24 hr 08/08/21 08/08/21 08/08/21 11:21 16:21 20:10 MCV MCH MCHC RDW Plt Count MPV Absolute Nucleated RBC Nucleated RBC % (auto) POC Glucose 285 H 189 H 155 H 08/09/21 08/09/21 07:32 08:46 MCV 81.5 MCH 24.7 L MCHC 30.3 L RDW 16.7 H Plt Count 413 H MPV 9.8 Absolute Nucleated RBC 0.000 Nucleated RBC % (auto) 0.0 POC Glucose 115 Microbiology Microbiology Results: Microbiology 07/29/21 13:54 Blood - Central Line Blood Culture - Final No growth after 5 days. 07/29/21 13:57 Blood - Central Line Blood Culture - Final No growth after 5 days. 07/29/21 13:44 Sputum - Suctioned Gram Stain - Final 07/29/21 13:44 Sputum - Suctioned Sputum Culture - Preliminary Filamentous fungus 07/29/21 13:44 Urine clean catch - Clean Catch Midstream Urine Culture - Final No growth. 07/17/21 09:48 Sputum - Suctioned Gram Stain - Final 07/17/21 09:48 Sputum - Suctioned Sputum Culture - Final Staphylococcus aureus 07/01/21 00:37 Blood - Venous Blood Culture - Final No growth after 5 days. 07/01/21 00:37 Blood - Venous Blood Culture - Final No growth after 5 days. 07/02/21 15:55 Urine clean catch - Urine ortiz top Urine Culture - Final Quality Stroke Does the patient have a stroke diagnosis?: No VTE Prior VTE?: No VTE Risk Level:: Medical - moderate - high VTE Device Contraindication: Treatment Not Indicated VTE Drug Contraindication: N/A - Med Ordered
[2021-08-09 11:33] LABS: Glucose, Whole Blood 225 mg/dL (60-115)
[2021-08-09] MEDS: 0.9 % Sodium Chloride 1,000 ML 999 ML IVCONT (11:58)
[2021-08-09] MEDS: Insulin Lispro 100 UNIT/ML 3 ML VIAL SUBCUT ×2 (11:58→16:40)
--- NOTE | 2021-08-09 12:57 | MHC.SLORD ---
Speech Language Pathology Order Status: Per RN, patient is tolerating PO- She is on CHOPPED/ADVANCED (NDD3) solids and THIN liquids. NURSE OUTREACH CASE MANAGER will continue to follow.
[2021-08-09 16:07] LABS: Glucose, Whole Blood 169 mg/dL (60-115)
[2021-08-09] MEDS: Propranolol HCL 40 MG TABLET PO (16:40)
[2021-08-09 19:53] LABS: Glucose, Whole Blood 143 mg/dL (60-115)
[2021-08-10] VITALS (9 sets, daily range): BP systolic 99–122; BP diastolic 63–86; PULSE 89–112; RESP 17–20; TEMP 36.1–36.6; O2SAT 91–99
[2021-08-10] MEDS: Acetaminophen 325 MG TABLET 650 MG PO (03:20)
[2021-08-10 07:02] LABS: Hematocrit 34.8 % (37.0-47.0); Hemoglobin 10.3 g/dl (12.0-16.0); Mean Corpuscular HGB Conc 29.6 g/dl (31.0-35.0); Mean Corpuscular Hemoglobin 24.5 pg (27.0-33.0); Mean Corpuscular Volume 82.7 fL (80.0-98.0); Mean Platelet Volume 10.6 fL (9.4-12.3); Platelet Count 265 X10*3/uL (160-400); Red Blood Count 4.21 X10*6/uL (4.20-5.50); Red Cell Distribution Width 16.8 % (11.0-16.0); White Blood Count 9.9 X10*3/uL (4.8-10.8)
[2021-08-10 07:20] LABS: Glucose, Whole Blood 110 mg/dL (60-115)
[2021-08-10 07:34] LABS: Anion Gap 12 (12-20); Blood Urea Nitrogen 5 mg/dL (9-16); Calcium 8.9 mg/dL (8.4-10.2); Carbon Dioxide 31 mmol/L (22-29); Chloride 99 mmol/L (96-108); Estimated Glomerular Filt Rate > 60; Glucose Random 112 mg/dL (60-115); Potassium 3.7 mmol/L (3.3-5.1); Sodium 138 mmol/L (135-145)
[2021-08-10] MEDS: 0.9 % Sodium Chloride Flush 3 ML SYRINGE IVFLUSH ×3 (09:10→21:10)
[2021-08-10] MEDS: Enoxaparin Sodium 40 MG/0.4 ML SYRINGE SUBCUT (09:10)
[2021-08-10] MEDS: Propranolol HCL 40 MG TABLET PO (09:11)
[2021-08-10 11:50] LABS: Glucose, Whole Blood 195 mg/dL (60-115)
--- NOTE | 2021-08-10 12:06 | MHC.SLORD ---
Speech Language Pathology Order Status: Updated with RN, Martine, who reported that pt has been tolerating her current diet consistency of NDD3 CHOPPED/ADVANCED solids with THIN liquids well. PRESSROOM SUPERVISOR will follow-up tomorrow morning to trial regular consistency solids if appropriate in order to determine the safest and least restrictive diet consistency.
[2021-08-10] MEDS: Insulin Lispro 100 UNIT/ML 3 ML VIAL SUBCUT ×2 (12:11→21:10)
--- NOTE | 2021-08-10 12:17 | MHC.CM.PN ---
pt is still on high partha 02 no dc date at this time
--- NOTE | 2021-08-10 13:31 | MHC.CLN ---
F/U PO VARIABLE DIET REMAINS CHOPPED (NDD3)-APPROPRIATE PT RECEIVING ENSURE TID TO PROVIDE 1050KCALS, 60G PROTEIN CONTINUE TO MONITOR PO INTAKE CLOSELY
--- NOTE | 2021-08-10 15:19 | HO.PM.IMPN ---
Subjective Subjective Date of Service: 08/10/21 Interval History: F/u covid, hypoxic respiratory failure, doing well, doesn't want to go to rehab Review of Systems no fever no sob Physical Exam Vital Signs: Vital Signs: Last Vital Signs Temp 97.5 F 08/10/21 11:26 Pulse 93 08/10/21 11:26 Resp 20 08/10/21 11:26 BP 99/71 08/10/21 11:26 Pulse Ox 99 08/10/21 11:26 Body Mass Index 23.4 Const: Other: General: AO X 3, no acute distress Resp: normal breathing patter, clear CVS: S1,S2,RRR GI: +BS, NT, no distention Skin: No rash Neuro: motor grossly intact Psych: appropriate affect Objective Data Active Medications Acetaminophen (Acetaminophen 325 Mg Tablet) 650 mg PO Q6H PRN PRN Reason: Pain, Mild (Pain Scale 1-3) Last Admin: 08/10/21 03:20 Dose: 650 mg Documented by: CHRIS Dextrose (Dextrose 50 % 25 Gm/50 Ml Vial) 25 gm IVPUSH Q15M PRN; Protocol PRN Reason: per Hypoglycemia Standing Ord. Enoxaparin Sodium (Enoxaparin Sodium 40 Mg/0.4 Ml Syringe) 40 mg SUBCUT Q24H [facility] Last Admin: 08/10/21 09:10 Dose: 40 mg Documented by: TIM Glucose (Glucose Gel 15 Gm Gel..Gram.) 15 gm PO Q15M PRN; Protocol PRN Reason: per Hypoglycemia Standing Ord. Insulin Human Lispro (Insulin Lispro 100 Unit/Ml 3 Ml Vial) 0 unit SUBCUT QIDACHS [facility]; Protocol Last Admin: 08/10/21 12:11 Dose: 2 unit Documented by: TIM Ondansetron HCl (Ondansetron Hcl 4 Mg/2 Ml Vial) 4 mg IVPUSH Q6H PRN PRN Reason: nausea Last Admin: 08/03/21 10:29 Dose: 4 mg Documented by: KAPIL Propranolol HCl (Propranolol Hcl 40 Mg Tablet) 40 mg PO DAILY [facility]; Protocol Last Admin: 08/10/21 09:11 Dose: 40 mg Documented by: TIM Sodium Chloride (0.9 % Sodium Chloride Flush 3 Ml Syringe) 3 ml IVFLUSH QSHIFT [facility] Last Admin: 08/10/21 09:10 Dose: 3 ml Documented by: TIM Labs CBC & Chem 7: 08/10/21 06:51 08/10/21 06:51 Labs: Laboratory Results - last 24 hr 08/09/21 08/09/21 08/10/21 16:03 19:47 06:51 MCV 82.7 MCH 24.5 L MCHC 29.6 L RDW 16.8 H Plt Count 265 D MPV 10.6 Absolute Nucleated RBC 0.000 Nucleated RBC % (auto) 0.0 Anion Gap Estim Creat Clear Calc Estimated GFR POC Glucose 169 H 143 H Random Glucose Calcium 08/10/21 08/10/21 08/10/21 06:51 07:04 11:18 MCV MCH MCHC RDW Plt Count MPV Absolute Nucleated RBC Nucleated RBC % (auto) Anion Gap 12 Estim Creat Clear Calc 108.0 Estimated GFR > 60 POC Glucose 110 195 H Random Glucose 112 Calcium 8.9 D Assessment and Plan (1) Acute and chronic respiratory failure with hypoxia: Status: Acute Assessment and Plan: 41-year-old Icelandic-speaking female with no significant past medical history admitted for COVID-19, requiring ICU leval of care from 07/02 to 07/28 and 11 days of intubation (07/15-07/26) complicated by pneumomediastinum downgraded to IMC on 07/28 and then returned to the ICU the following day and was reintubated for worsening respiratory status. She was extubated 08/01 and downgraded to the medical floor 08/04.? Her hospital course has been complicated by severe anxiety/panic attacks. Tachycardia, likely anxiety related, negative, nl TSH continue propranolol Covid 19 related acute hypoxic resp failure prolonged hospitalization treated for MSSA in sputum Secondary to underlying COVID 19 intubated from 07/15 to 07/26; 07/29-08/01 Now tolerating 4-6LNC sputum cx from 07/17 growing MSSA s/p doxycycline sputum culture was growing filamentous fungus, initially started on voriconazole which was later d/c as it was thought to be colonization Severe anxiety. denies started on lamictal in ICU, now stopped breast mass present on admission ct outpatient follow up home O2 eval and probably Quality Stroke Does the patient have a stroke diagnosis?: No VTE Prior VTE?: No VTE Risk Level:: Medical - moderate - high VTE Device Contraindication: Treatment Not Indicated VTE Drug Contraindication: N/A - Med Ordered
[2021-08-10 16:12] LABS: Glucose, Whole Blood 138 mg/dL (60-115)
[2021-08-10 16:14] LABS: COVID-19 Test Negative (Negative); IDNOW Serial# 9DD0AD1C
[2021-08-10 19:37] LABS: Glucose, Whole Blood 177 mg/dL (60-115)
[2021-08-11] VITALS (12 sets, daily range): BP systolic 97–136; BP diastolic 60–84; PULSE 86–121; RESP 18–20; TEMP 36.1–36.8; O2SAT 79–96
[2021-08-11 07:48] LABS: Glucose, Whole Blood 127 mg/dL (60-115)
[2021-08-11] MEDS: Enoxaparin Sodium 40 MG/0.4 ML SYRINGE SUBCUT (08:50)
[2021-08-11] MEDS: 0.9 % Sodium Chloride Flush 3 ML SYRINGE IVFLUSH ×2 (08:50→21:59)
[2021-08-11] MEDS: Propranolol HCL 40 MG TABLET PO (08:51)
--- NOTE | 2021-08-11 11:31 | MHC.SLORD ---
Speech Language Pathology Order Status: DENTAL PRACTICE MANAGER attempted to see patient for dysphagia treatment this morning. However, patient was on commode, and was being seen by physical therapy. DENTAL PRACTICE MANAGER checked in with RN who reported that patient has been tolerating PO without any difficulties. Patient is currently on CHOPPED/ADVANCED (NDD3) solids and THIN liquids. DENTAL PRACTICE MANAGER to return later this afternoon if schedule allows. Otherwise, plan for dysphagia treatment tomorrow morning to assess for potential of upgrade.
[2021-08-11 11:39] LABS: Glucose, Whole Blood 178 mg/dL (60-115)
--- NOTE | 2021-08-11 11:49 | PC.RT ---
Home O2 eval ordered. Pt desat on RA with 79% HR 120 with no activity, placed on 2L NC sating 93% with no activity. Upon ambulation, pt desat to 81% HR 127. Pt could not walk any further due to oxygen level critically low at 81% and pts inability to walk due to light headedness and weakness. recommendation made for rehab, RN aware, aware.
[2021-08-11] MEDS: Insulin Lispro 100 UNIT/ML 3 ML VIAL SUBCUT (11:54)
--- NOTE | 2021-08-11 11:56 | P.PNIM_ITS ---
Subjective Subjective Date of Service: 08/11/21 Interval History: F/u covid, hypoxic respiratory failure, doing well, O2 sat 95 on 2 lit but desat markedly to 70s with minimal activity and and is very weak, covid is now negative Review of Systems \no sob generally weak Physical Exam Vital Signs: Vital Signs: Last Vital Signs Temp 97.0 F 08/11/21 11:32 Pulse 89 08/11/21 11:32 Resp 19 08/11/21 11:32 BP 100/69 08/11/21 11:32 Pulse Ox 95 08/11/21 11:32 Body Mass Index 23.4 Const: Other: General: AO X 3, no acute distress Resp: normal breathing patter, clear CVS: S1,S2,RRR GI: +BS, NT, no distention Skin: No rash Neuro: motor grossly intact Psych: appropriate affect Objective Data Active Medications Acetaminophen (Acetaminophen 325 Mg Tablet) 650 mg PO Q6H PRN PRN Reason: Pain, Mild (Pain Scale 1-3) Last Admin: 08/10/21 03:20 Dose: 650 mg Documented by: CHRIS Dextrose (Dextrose 50 % 25 Gm/50 Ml Vial) 25 gm IVPUSH Q15M PRN; Protocol PRN Reason: per Hypoglycemia Standing Ord. Enoxaparin Sodium (Enoxaparin Sodium 40 Mg/0.4 Ml Syringe) 40 mg SUBCUT Q24H [facility] Last Admin: 08/11/21 08:50 Dose: 40 mg Documented by: AUGIE Glucose (Glucose Gel 15 Gm Gel..Gram.) 15 gm PO Q15M PRN; Protocol PRN Reason: per Hypoglycemia Standing Ord. Insulin Human Lispro (Insulin Lispro 100 Unit/Ml 3 Ml Vial) 0 unit SUBCUT QIDACHS [facility]; Protocol Last Admin: 08/11/21 11:54 Dose: 2 unit Documented by: AUGIE Ondansetron HCl (Ondansetron Hcl 4 Mg/2 Ml Vial) 4 mg IVPUSH Q6H PRN PRN Reason: nausea Last Admin: 08/03/21 10:29 Dose: 4 mg Documented by: KAPIL Propranolol HCl (Propranolol Hcl 40 Mg Tablet) 40 mg PO DAILY [facility]; Protocol Last Admin: 08/11/21 08:51 Dose: 40 mg Documented by: AUGIE Sodium Chloride (0.9 % Sodium Chloride Flush 3 Ml Syringe) 3 ml IVFLUSH QSHIFT [facility] Last Admin: 08/11/21 08:50 Dose: 3 ml Documented by: AUGIE Labs CBC & Chem 7: 08/10/21 06:51 08/10/21 06:51 Labs: Laboratory Results - last 24 hr 08/10/21 08/10/21 08/10/21 15:26 16:07 19:33 POC Glucose 138 H 177 H COVID-19 (PAPA) Negative COVID-19 Clin Com See Note 08/11/21 08/11/21 07:33 11:34 POC Glucose 127 H 178 H COVID-19 (PAPA) COVID-19 Clin Com Assessment and Plan (1) Acute and chronic respiratory failure with hypoxia: Status: Acute Assessment and Plan: 41-year-old Nauruan-speaking female with no significant past medical history admitted for COVID-19, requiring ICU leval of care from 07/02 to 07/28 and 11 days of intubation (07/15-07/26) complicated by pneumomediastinum downgraded to IMC on 07/28 and then returned to the ICU the following day and was reintubated for worsening respiratory status. She was extubated 08/01 and downgraded to the medical floor 08/04.? Her hospital course has been complicated by severe anxiety/panic attacks. Covid 19 related acute hypoxic resp failure prolonged hospitalization treated for MSSA in sputum Secondary to underlying COVID 19 intubated from 07/15 to 07/26; 07/29-08/01 Now saturating 95 on 2 liters but desat markedly with minimal effort and is very deconditioned and needs rehab she has been refusing rehab but now is agreable, discussed with CM and their are doing bed search sputum cx from 07/17 growing MSSA, completed doxycycline sputum culture was growing filamentous fungus, initially started on voriconazole which was later d/c as it was thought to be colonization Tachycardia, likely anxiety, decondtioned, doing well with Propranolol Severe anxiety. denies started on lamictal in ICU, now stopped breast mass present on admission ct outpatient follow up PT, respiratory recommend [facility], she is now agreable. Quality Stroke Does the patient have a stroke diagnosis?: No VTE Prior VTE?: No VTE Risk Level:: Medical - moderate - high VTE Device Contraindication: Treatment Not Indicated VTE Drug Contraindication: N/A - Med Ordered
[2021-08-11 16:40] LABS: Glucose, Whole Blood 141 mg/dL (60-115)
[2021-08-11 22:02] LABS: Glucose, Whole Blood 115 mg/dL (60-115)
[2021-08-12] VITALS (9 sets, daily range): BP systolic 97–125; BP diastolic 63–83; PULSE 82–109; RESP 18–20; TEMP 35.9–37.1; O2SAT 93–100
[2021-08-12] MEDS: Acetaminophen 325 MG TABLET 650 MG PO (05:07)
[2021-08-12 07:41] LABS: Glucose, Whole Blood 141 mg/dL (60-115)
--- NOTE | 2021-08-12 08:26 | MHC.CM.PN ---
Addendum entered by Leonarda Gomez 08/12/21 10:16: [facility] @ DOES NOT HAVE A BED TO OFFER TODAY. RUDY SPOKE TO PTS S/O WHO REPORTED THEY WOULD BE OK WITH [facility] CM CONTACTED [facility] AND THEY ARE NOT ABLE TO TAKE ADMISSIONS TODAY. RUDY SENT REFERRAL TO ALL [facility] CONTRACTED FACILITIES PER [facility]. AWAITING RESPONSES Addendum entered by Leonarda Gomez 08/12/21 08:31: CONTACT INFO FOR PTS S/O: ZAHRA HATFIELD [phone] Original Note: RUDY INFORMED ON 08/11/21 THAT PT IS READY TO DC TO [facility]. CM CONTACTED PTS S/O TO DISCUSS SNF'S THEY MAY BE INTERESTED IN. RUDY INFORMED HIM THAT AT THIS TIME THERE ARE ONLY TWO FACILITIES FOLLOWING, [facility] AND [facility] @ . HE REPORTS HE WOULD PREFER PT NOT GO TO [facility]. HE STATES, [facility] IS WHERE THEY WERE HOPING SHE COULD GO BUT THEY WOULD BE AGREEABLE TO [facility]LL. CM UPDATED REFERRALS TO [facility] AND [facility]. [facility] IS NOT OFFERING A BED. [facility] IS CHECKING BED AVAILABILITY PT SHOULD DC TO [facility] TODAY. FACILITY TBD, [facility] CHECKING BED AVAILABILITY.
[2021-08-12] MEDS: Enoxaparin Sodium 40 MG/0.4 ML SYRINGE SUBCUT (09:01)
[2021-08-12] MEDS: Propranolol HCL 40 MG TABLET PO (09:01)
[2021-08-12] MEDS: 0.9 % Sodium Chloride Flush 3 ML SYRINGE IVFLUSH ×3 (09:01→23:25)
--- NOTE | 2021-08-12 10:26 | P.PNIM_ITS ---
Subjective Subjective Date of Service: 08/12/21 Interval History: F/u covid, hypoxic respiratory failure, doing well, O2 sat 95 on 2 lit but desat markedly to 70s with minimal activity and and is very weak, covid is now negative, no new issues Review of Systems \no sob generally weak Physical Exam Vital Signs: Vital Signs: Last Vital Signs Temp 96.6 F L 08/12/21 07:53 Pulse 104 H 08/12/21 10:18 Resp 20 08/12/21 07:53 BP 112/75 08/12/21 10:18 Pulse Ox 93 08/12/21 10:18 Body Mass Index 23.4 Const: Other: General: AO X 3, no acute distress Resp: normal breathing patter, clear CVS: S1,S2,RRR GI: +BS, NT, no distention Skin: No rash Neuro: motor grossly intact Psych: appropriate affect Objective Data Active Medications Acetaminophen (Acetaminophen 325 Mg Tablet) 650 mg PO Q6H PRN PRN Reason: Pain, Mild (Pain Scale 1-3) Last Admin: 08/12/21 05:07 Dose: 650 mg Documented by: PLAMER Dextrose (Dextrose 50 % 25 Gm/50 Ml Vial) 25 gm IVPUSH Q15M PRN; Protocol PRN Reason: per Hypoglycemia Standing Ord. Enoxaparin Sodium (Enoxaparin Sodium 40 Mg/0.4 Ml Syringe) 40 mg SUBCUT Q24H [facility] Last Admin: 08/12/21 09:01 Dose: 40 mg Documented by: JIL Glucose (Glucose Gel 15 Gm Gel..Gram.) 15 gm PO Q15M PRN; Protocol PRN Reason: per Hypoglycemia Standing Ord. Insulin Human Lispro (Insulin Lispro 100 Unit/Ml 3 Ml Vial) 0 unit SUBCUT QIDACHS [facility]; Protocol Last Admin: 08/12/21 07:49 Dose: Not Given Documented by: JIL Non-Admin Reason: No Insulin Coverage Ondansetron HCl (Ondansetron Hcl 4 Mg/2 Ml Vial) 4 mg IVPUSH Q6H PRN PRN Reason: nausea Last Admin: 08/03/21 10:29 Dose: 4 mg Documented by: KAPIL Propranolol HCl (Propranolol Hcl 40 Mg Tablet) 40 mg PO DAILY [facility]; Protocol Last Admin: 08/12/21 09:01 Dose: 40 mg Documented by: JIL Sodium Chloride (0.9 % Sodium Chloride Flush 3 Ml Syringe) 3 ml IVFLUSH QSHIFT [facility] Last Admin: 08/12/21 09:01 Dose: 3 ml Documented by: JIL Labs CBC & Chem 7: 08/10/21 06:51 08/10/21 06:51 Labs: Laboratory Results - last 24 hr 08/11/21 08/11/21 08/11/21 11:34 16:35 21:57 POC Glucose 178 H 141 H 115 08/12/21 07:36 POC Glucose 141 H Assessment and Plan (1) Acute and chronic respiratory failure with hypoxia: Status: Acute Assessment and Plan: 41-year-old Welsh-speaking female with no significant past medical history admitted for COVID-19, requiring ICU leval of care from 07/02 to 07/28 and 11 days of intubation (07/15-07/26) complicated by pneumomediastinum downgraded to IMC on 07/28 and then returned to the ICU the following day and was reintubated for worsening respiratory status. She was extubated 08/01 and downgraded to the medical floor 08/04.? Her hospital course has been complicated by severe anxiety/panic attacks. No new issues, awaiting rehab bed Covid 19 related acute hypoxic resp failure prolonged hospitalization treated for MSSA in sputum Secondary to underlying COVID 19 intubated from 07/15 to 07/26; 07/29-08/01 Now saturating 95 on 2 liters but desat markedly with minimal effort and is very deconditioned and needs rehab she has been refusing rehab but now is agreable, discussed with CM and their are doing bed search sputum cx from 07/17 growing MSSA, completed doxycycline sputum culture was growing filamentous fungus, initially started on voriconazole which was later d/c as it was thought to be colonization Tachycardia, likely anxiety, decondtioned, doing well with Propranolol Severe anxiety. denies started on lamictal in ICU, now stopped breast mass present on admission ct outpatient follow up PT, respiratory recommend [facility], she is now agreable. Quality Stroke Does the patient have a stroke diagnosis?: No VTE Prior VTE?: No VTE Risk Level:: Medical - moderate - high VTE Device Contraindication: Treatment Not Indicated VTE Drug Contraindication: N/A - Med Ordered
--- NOTE | 2021-08-12 10:28 | MHC.SL.DTX ---
Dysphagia Diet modifications: Last documented Solid diet consistencies: Chopped/Advanced (NDD3) Last documented Liquid consistency: Thin Last documented Medication Administration:crushed in puree Changes made to current diet?: Yes: Upgrade Liquid Consistency and Strategies: Liquid Intake Recommendation: Thin Compensatory Strategies for Safe Swallow: Small Sips No Straws Compensatory Strategies for Safe Swallow(b): Sitting Upright (90 deg) No Straw Liquids from Cup Small Bites and Sips Alternate Liquids/Solids Solid Food Consistency: Dietary Recommendations: Regular Additional Modifications to Solids: Extra sauce/gravy Oral Medication Intake: Whole with Puree Strategies and Precautions to be Taken for Safe Swallow: Sitting Upright (90 deg) No Straw Liquids from Cup Small Bites and Sips Alternate Liquids/Solids Supervision While Eating and/Drinking: Intermittent Supervision Foods to Avoid: dry, hard, sticky solids Swallowing Recommended Treatments: Compens. Strategy Educat. Level of Impact on: Daily activities: Moderate Community: Moderate Prognosis for Improvement: Good Recommendation for Speech: Inpatient Speech Therapy Pt was seated upright and spoke a combination of [place] and Thai. She expressed agreement with the plan to trial regular consistency solids this date to determine the possibility of an upgrade. Pt declined the trial of a sandwich offered, stating she did not like it. Pt consumed a trial of 2 whole, regular consistency crackers for which she self fed. Pt demonstrated a functional oral phase with no overt s/s aspiration. Pt reported residuals along her upper gumline for which she independently utilized a lingual sweep to successfully clear. Pt independently utilized an appropriate rate of intake, small bolus/sip size, and alternated liquids and solids. Updated with RN and MD re: recommendation to advance to REGULAR consistency solids. Diet changed in [place]panse by this [facility]. Continue with THIN liquids, medications in puree/whole in thin liquids as appropriate, aspiration precautions, and intermittent supervision/assist as needed. [facility] will continue to follow for 1 additional tx to ensure continued tolerance of regular consistency solids. Assessment: Spindle Tester Clinican/Clinical Fellow: No Supervisory Statement: I have reviewed and agree with the student/clinical fellow's documentation: N/A Speech Language Pathologist: Annette Martin M.A., [facility]
[2021-08-12 11:15] LABS: Glucose, Whole Blood 193 mg/dL (60-115)
[2021-08-12] MEDS: Insulin Lispro 100 UNIT/ML 3 ML VIAL SUBCUT (12:07)
--- NOTE | 2021-08-12 12:24 | MHC.CLN ---
F/U PO INTAKE IMPROVED 50% AVG (08/09-08/12) DIET RX: REGULAR-APPROPRIATE COMMUNICATIONS INSTRUCTOR FOLLOWING AND UPGRADED 08/12 PT RECEIVING ENSURE TID TO PROVIDE 1050KCALS, 60G PROTEIN TO PROMOTE WOUND HEALING CONTINUE TO MONITOR PO INTAKE CLOSELY
[2021-08-12 16:44] LABS: Glucose, Whole Blood 133 mg/dL (60-115)
[2021-08-12 19:57] LABS: Glucose, Whole Blood 129 mg/dL (60-115)
[2021-08-13] VITALS (9 sets, daily range): BP systolic 106–136; BP diastolic 61–83; PULSE 80–142; RESP 18–20; TEMP 36.1–36.6; O2SAT 94–100
[2021-08-13 07:57] LABS: Glucose, Whole Blood 130 mg/dL (60-115)
[2021-08-13] MEDS: Enoxaparin Sodium 40 MG/0.4 ML SYRINGE SUBCUT (09:31)
[2021-08-13] MEDS: Propranolol HCL 40 MG TABLET PO (09:31)
[2021-08-13] MEDS: 0.9 % Sodium Chloride Flush 3 ML SYRINGE IVFLUSH ×2 (09:35→19:48)
[2021-08-13 11:11] LABS: Glucose, Whole Blood 124 mg/dL (60-115)
--- NOTE | 2021-08-13 12:28 | PC.NURSE ---
Addendum entered by Clemencia Prajapati RN 08/13/21 17:33: Patient now in room 471, happy with transfer. Frequent visitors throughout the day. Maintained mid 90s on 2L, 4L with activity. Patient tachycardic with movement, as high as the 130s. Patient in recliner for most of the day. Orthos negative. Will pass to oncoming RN. Original Note: Hospitalist requesting patient move out of Covid room to non-covid room; this RN spoke with RN fruit grading supervisor Virgil who approved request; pending transfer to room 471.
[2021-08-13 16:11] LABS: Glucose, Whole Blood 141 mg/dL (60-115)
--- NOTE | 2021-08-13 17:38 | HO.PM.IMPN ---
Subjective Subjective Date of Service: 08/13/21 Interval History: F/u covid, hypoxic respiratory failure, doing well, O2 sat 97 on 2 lit but Continue to desat to 70s with minimal activity and feels weak, covid is now negative, no new issues Review of Systems General no headache, no dizziness, no fever chills. CVS no chest pain, no palpitation. Respiratory no shortness of breath Gastrointestinal no nausea, no vomiting, no abdominal pain Physical Exam Vital Signs: Vital Signs: Last Vital Signs Temp 96.9 F 08/13/21 14:59 Pulse 80 08/13/21 14:59 Resp 20 08/13/21 14:59 BP 110/67 08/13/21 14:59 Pulse Ox 97 08/13/21 14:59 Body Mass Index 23.4 General: A X O X 3, no acute distress Neck no JVD Resp: Coarse breath sound bilaterally no wheeze, no respiratory distress, no use of accessory muscles CVS: S1,S2,RRR GI: +BS, NT, no distention Skin: No rash Neuro:? motor grossly intact Psych: appropriate affect Objective Data Active Medications Acetaminophen (Acetaminophen 325 Mg Tablet) 650 mg PO Q6H PRN PRN Reason: Pain, Mild (Pain Scale 1-3) Last Admin: 08/12/21 05:07 Dose: 650 mg Documented by: PALMER Dextrose (Dextrose 50 % 25 Gm/50 Ml Vial) 25 gm IVPUSH Q15M PRN; Protocol PRN Reason: per Hypoglycemia Standing Ord. Enoxaparin Sodium (Enoxaparin Sodium 40 Mg/0.4 Ml Syringe) 40 mg SUBCUT Q24H [facility] Last Admin: 08/13/21 09:31 Dose: 40 mg Documented by: MEET Glucose (Glucose Gel 15 Gm Gel..Gram.) 15 gm PO Q15M PRN; Protocol PRN Reason: per Hypoglycemia Standing Ord. Insulin Human Lispro (Insulin Lispro 100 Unit/Ml 3 Ml Vial) 0 unit SUBCUT QIDACHS [facility]; Protocol Last Admin: 08/13/21 16:12 Dose: Not Given Documented by: MEET Non-Admin Reason: No Insulin Coverage Ondansetron HCl (Ondansetron Hcl 4 Mg/2 Ml Vial) 4 mg IVPUSH Q6H PRN PRN Reason: nausea Last Admin: 08/03/21 10:29 Dose: 4 mg Documented by: KAPIL Propranolol HCl (Propranolol Hcl 40 Mg Tablet) 40 mg PO DAILY [facility]; Protocol Last Admin: 08/13/21 09:31 Dose: 40 mg Documented by: MEET Sodium Chloride (0.9 % Sodium Chloride Flush 3 Ml Syringe) 3 ml IVFLUSH QSHIFT [facility] Last Admin: 08/13/21 16:09 Dose: Not Given Documented by: MEET Non-Admin Reason: Previously Administered Labs CBC & Chem 7: 08/10/21 06:51 08/10/21 06:51 Labs: Laboratory Results - last 24 hr 08/12/21 08/13/21 08/13/21 19:51 07:29 11:07 POC Glucose 129 H 130 H 124 H 08/13/21 16:07 POC Glucose 141 H Assessment and Plan (1) Acute and chronic respiratory failure with hypoxia: Status: Acute Assessment and Plan: 41-year-old Greenlandic-speaking female with no significant past medical history admitted for COVID-19, requiring ICU leval of care from 07/02 to 07/28 and 11 days of intubation (07/15-07/26) complicated by pneumomediastinum downgraded to IMC on 07/28 and then returned to the ICU the following day and was reintubated for worsening respiratory status. She was extubated 08/01 and downgraded to the medical floor 08/04.? Her hospital course has been complicated by severe anxiety/panic attacks. No new issues, awaiting rehab bed Covid 19 related acute hypoxic resp failure prolonged hospitalization Secondary to underlying COVID 19 intubated from 07/15 to 07/26; 07/29-08/01 Now saturating 95 on 2 liters but desat markedly with minimal effort and is very deconditioned , patient agreed for rehab, disease case manager looking for rehab bed sputum cx from 07/17 grew MSSA, completed doxycycline sputum culture was growing filamentous fungus, initially started on voriconazole which was later d/c as it was thought to be colonization Tachycardia, likely anxiety, decondtioned, doing well with Propranolol Severe anxiety. Resolved breast mass present on admission ct outpatient follow up PT, respiratory recommend [facility], she is now agreable. Quality Stroke Does the patient have a stroke diagnosis?: No VTE Prior VTE?: No VTE Risk Level:: Medical - moderate - high VTE Device Contraindication: Treatment Not Indicated VTE Drug Contraindication: N/A - Med Ordered
[2021-08-13 19:28] LABS: Glucose, Whole Blood 170 mg/dL (60-115)
[2021-08-13] MEDS: Insulin Lispro 100 UNIT/ML 3 ML VIAL SUBCUT (19:33)
[2021-08-14] VITALS (9 sets, daily range): BP systolic 100–120; BP diastolic 65–84; PULSE 81–134; RESP 18–20; TEMP 36.1–36.8; O2SAT 96–100; BMI 23.3
[2021-08-14] MEDS: Acetaminophen 325 MG TABLET 650 MG PO (03:18)
[2021-08-14 07:08] LABS: Glucose, Whole Blood 127 mg/dL (60-115)
[2021-08-14] MEDS: 0.9 % Sodium Chloride Flush 3 ML SYRINGE IVFLUSH ×2 (08:25→15:59)
[2021-08-14] MEDS: Enoxaparin Sodium 40 MG/0.4 ML SYRINGE SUBCUT (09:39)
[2021-08-14] MEDS: Propranolol HCL 40 MG TABLET PO (09:40)
--- NOTE | 2021-08-14 11:59 | HO.PM.IMPN ---
Subjective Subjective Date of Service: 08/14/21 Interval History: F/u covid, hypoxic respiratory failure, doing well, O2 sat 97 on 2 liters but desaturate with minimal activity like standing , feels weak, covid is negative, no new issues overnight. Review of Systems General no headache, no dizziness, no fever chills.? CVS no chest pain, no palpitation.? Respiratory no shortness of breath at rest Gastrointestinal no nausea, no vomiting, no abdominal pain Review of Systems: Yes all other systems are reviewed and are negative Physical Exam Vital Signs: Vital Signs: Last Vital Signs Temp 97.5 F 08/14/21 11:42 Pulse 87 08/14/21 11:42 Resp 18 08/14/21 11:42 BP 111/73 08/14/21 11:42 Pulse Ox 96 08/14/21 11:42 Body Mass Index 23.3 General: A X O X 3 , no acute distres s Neck no JVD Resp :? Decreased breat h sounds bilateral ly, no wheeze, no respiratory distre ss, no use of acce ssory muscles CVS: S1,S2,RRR GI: Ab domen soft nontend er bowel sounds au dible Skin: No ra sh Neuro:? motor g rossly intact Psyc h: appropriate aff ect Objective Data Active Medications Acetaminophen (Acetaminophen 325 Mg Tablet) 650 mg PO Q6H PRN PRN Reason: Pain, Mild (Pain Scale 1-3) Last Admin: 08/14/21 03:18 Dose: 650 mg Documented by: FREMIN Dextrose (Dextrose 50 % 25 Gm/50 Ml Vial) 25 gm IVPUSH Q15M PRN; Protocol PRN Reason: per Hypoglycemia Standing Ord. Enoxaparin Sodium (Enoxaparin Sodium 40 Mg/0.4 Ml Syringe) 40 mg SUBCUT Q24H [facility] Last Admin: 08/14/21 09:39 Dose: 40 mg Documented by: ДМИТРИЙ Glucose (Glucose Gel 15 Gm Gel..Gram.) 15 gm PO Q15M PRN; Protocol PRN Reason: per Hypoglycemia Standing Ord. Insulin Human Lispro (Insulin Lispro 100 Unit/Ml 3 Ml Vial) 0 unit SUBCUT QIDACHS [facility]; Protocol Last Admin: 08/14/21 07:26 Dose: Not Given Documented by: ДМИТРИЙ Non-Admin Reason: No Insulin Coverage Ondansetron HCl (Ondansetron Hcl 4 Mg/2 Ml Vial) 4 mg IVPUSH Q6H PRN PRN Reason: nausea Last Admin: 08/03/21 10:29 Dose: 4 mg Documented by: KAPIL Propranolol HCl (Propranolol Hcl 40 Mg Tablet) 40 mg PO DAILY [facility]; Protocol Last Admin: 08/14/21 09:40 Dose: 40 mg Documented by: ДМИТРИЙ Sodium Chloride (0.9 % Sodium Chloride Flush 3 Ml Syringe) 3 ml IVFLUSH QSHIFT [facility] Last Admin: 08/14/21 08:25 Dose: 3 ml Documented by: ДМИТРИЙ Labs CBC & Chem 7: 08/10/21 06:51 08/10/21 06:51 Labs: Laboratory Results - last 24 hr 08/13/21 08/13/21 08/14/21 16:07 19:20 07:04 POC Glucose 141 H 170 H 127 H Assessment and Plan (1) Tachycardia: Status: Acute (2) Acute respiratory failure with hypoxia: Status: Acute (3) Pneumonia due to COVID-19 virus: Status: Acute Assessment and Plan: 41-year-old Telugu-speaking female with no significant past medical history admitted for COVID-19, requiring ICU leval of care from 07/02 to 07/28 and 11 days of intubation (07/15-07/26) complicated by pneumomediastinum downgraded to IMC on 07/28 and then returned to the ICU the following day and was reintubated for worsening respiratory status. She was extubated 08/01 and downgraded to the medical floor 08/04.? Her hospital course has been complicated by severe anxiety/panic attacks. No new issues, awaiting rehab bed Covid 19 related acute hypoxic resp failure prolonged hospitalization Secondary to underlying COVID 19 intubated from 07/15 to 07/26 then again 07/29-08/01 Now saturating 95 on 2 liters but desaturate markedly with minimal effort, patient agreed for rehab, returned case inspector looking for rehab bed sputum cx from 07/17 grew MSSA, completed doxycycline sputum culture was growing filamentous fungus, initially started on voriconazole which was later d/c as it was thought to be colonization Will DC point of care blood sugar monitoring, blood sugar stable, hemoglobin A1c 6, DC orthostatic studies Tachycardia, likely due to anxiety, decondtioning , still with intermittent tachycardia, continue Propranolol Severe anxiety.? Resolved Bilateral breast mass noted on admission ct chest measuring approximately 2.3 cm on the left and 1.6 cm on the right. Recommend outpatient follow up PT, respiratory recommend STR, waiting for rehab bed, patient moved to non isolation room. Quality Stroke Does the patient have a stroke diagnosis?: No VTE Prior VTE?: No VTE Risk Level:: Medical - moderate - high VTE Device Contraindication: Treatment Not Indicated VTE Drug Contraindication: N/A - Med Ordered
[2021-08-15] VITALS (9 sets, daily range): BP systolic 96–107; BP diastolic 56–71; PULSE 87–111; RESP 16–20; TEMP 36.4–37.2; O2SAT 90–100; BMI 23.1
[2021-08-15] MEDS: 0.9 % Sodium Chloride Flush 3 ML SYRINGE IVFLUSH ×4 (00:10→21:03)
[2021-08-15] MEDS: Enoxaparin Sodium 40 MG/0.4 ML SYRINGE SUBCUT (09:11)
[2021-08-15] MEDS: Propranolol HCL 40 MG TABLET PO (09:12)
[2021-08-15 11:19] LABS: Glucose, Whole Blood 150 mg/dL (60-115)
--- NOTE | 2021-08-15 12:07 | MHC.CM.PN ---
Broad SNF search in progress; CM AWAITS BED ACCEPTANCE (Recent Covid, Not Vaccinated). CM will continue to follow.
--- NOTE | 2021-08-15 13:03 | P.PNIM_ITS ---
Subjective Subjective Date of Service: 08/15/21 Interval History: F/u covid, hypoxic respiratory failure, doing well, O2 sat 97 on 2 liters but desaturate with minimal activity like standing , feels weak, covid is negative, no new issues overnight. Awaiting rehab bed Review of Systems General no headache, no dizziness, no fever chills.? CVS no chest pain, no palpitation.? Respiratory no shortness of breath at rest Gastrointestinal no nausea, no vomiting, no abdominal pain Physical Exam Vital Signs: Vital Signs: Last Vital Signs Temp 97.5 F 08/15/21 11:16 Pulse 95 08/15/21 11:16 Resp 16 08/15/21 11:16 BP 104/68 08/15/21 11:16 Pulse Ox 93 08/15/21 11:16 Body Mass Index 23.1 Const: Other: General: AO X 3, no acute distress Resp: normal breathing patter, clear CVS: S1,S2,RRR GI: +BS, NT, no distention Skin: No rash Neuro: motor grossly intact Psych: appropriate affect Objective Data Active Medications Acetaminophen (Acetaminophen 325 Mg Tablet) 650 mg PO Q6H PRN PRN Reason: Pain, Mild (Pain Scale 1-3) Last Admin: 08/14/21 03:18 Dose: 650 mg Documented by: FERMIN Enoxaparin Sodium (Enoxaparin Sodium 40 Mg/0.4 Ml Syringe) 40 mg SUBCUT Q24H [facility] Last Admin: 08/15/21 09:11 Dose: 40 mg Documented by: RAJI Ondansetron HCl (Ondansetron Hcl 4 Mg/2 Ml Vial) 4 mg IVPUSH Q6H PRN PRN Reason: nausea Last Admin: 08/03/21 10:29 Dose: 4 mg Documented by: KAPIL Propranolol HCl (Propranolol Hcl 40 Mg Tablet) 40 mg PO DAILY [facility]; Protocol Last Admin: 08/15/21 09:12 Dose: 40 mg Documented by: RAJI Sodium Chloride (0.9 % Sodium Chloride Flush 3 Ml Syringe) 3 ml IVFLUSH QSHIFT [facility] Last Admin: 08/15/21 09:15 Dose: 3 ml Documented by: RAJI Labs CBC & Chem 7: 08/10/21 06:51 08/10/21 06:51 Labs: Laboratory Results - last 24 hr 08/15/21 11:15 POC Glucose 150 H Assessment and Plan (1) Tachycardia: Status: Acute (2) Acute respiratory failure with hypoxia: Status: Acute (3) Pneumonia due to COVID-19 virus: Status: Acute Assessment and Plan: 41-year-old Greenlandic-speaking female with no significant past medical history admitted for COVID-19, requiring ICU leval of care from 07/02 to 07/28 and 11 days of intubation (07/15-07/26) complicated by pneumomediastinum downgraded to IMC on 07/28 and then returned to the ICU the following day and was reintubated for worsening respiratory status. She was extubated 08/01 and downgraded to the medical floor 08/04.? Her hospital course has been complicated by severe anxiety/panic attacks. No new issues, awaiting rehab bed Covid 19 related acute hypoxic resp failure, prolonged hospitalization d/t post covid syndrome intubated from 07/15 to 07/26 then again 07/29-08/01 Now saturating 95 on 2 liters but desaturate markedly with minimal effort, patient agreed for rehab, manager of case management looking for rehab bed sputum cx from 07/17 grew MSSA, completed doxycycline sputum culture was growing filamentous fungus, initially started on voriconazole which was later d/c as it was thought to be colonization Hgb A1C 6 no need for point of care, and no need for orthostatic BP Tachycardia, likely due to anxiety, decondtioning , still with intermittent tachycardia, continue Propranolol Severe anxiet, benzo or Atarax PRN--? Psych consult for permanent treatment Bilateral breast mass noted on admission ct chest measuring approximately 2.3 cm on the left and 1.6 cm on the right. Recommend outpatient follow up PT, respiratory recommend STR, waiting for rehab bed, patient moved to non isolation room. Quality Stroke Does the patient have a stroke diagnosis?: No VTE Prior VTE?: No VTE Risk Level:: Medical - moderate - high VTE Device Contraindication: Treatment Not Indicated VTE Drug Contraindication: N/A - Med Ordered
--- NOTE | 2021-08-15 13:26 | MHC.CLN ---
F/U PO INTAKE IMPROVED 75/100% DIET RX: REGULAR-APPROPRIATE PT RECEIVING ENSURE TID TO PROVIDE 1050KCALS, 60G PROTEIN TO PROMOTE WOUND HEALING CONTINUE TO MONITOR PO INTAKE CLOSELY
[2021-08-15] MEDS: Acetaminophen 325 MG TABLET 650 MG PO (15:45)
--- NOTE | 2021-08-15 16:19 | MHC.SL.DTX ---
Dysphagia Diet modifications: Last documented Solid diet consistencies: Regular Last documented Liquid consistency: Thin Last documented Medication Administration: Whole in Puree Changes made to current diet?: No: Continue with regular diet, thin liquids Liquid Consistency and Strategies: Liquid Intake Recommendation: Thin Compensatory Strategies for Safe Swallow: Small Sips No Straws Compensatory Strategies for Safe Swallow(b): Sitting Upright (90 deg) No Straw Liquids from Cup Small Bites and Sips Alternate Liquids/Solids Solid Food Consistency: Dietary Recommendations: Regular Additional Modifications to Solids: Extra sauce/gravy Oral Medication Intake: Whole with Puree Strategies and Precautions to be Taken for Safe Swallow: Sitting Upright (90 deg) No Straw Liquids from Cup Small Bites and Sips Alternate Liquids/Solids Supervision While Eating and/Drinking: Intermittent Supervision Foods to Avoid: dry, hard, sticky solids Swallowing Recommended Treatments: Compens. Strategy Educat. Level of Impact on: Daily activities: Moderate Interpersonal interactions: Education: Employment: Community: Moderate Prognosis for Improvement: Good Recommendation for Speech: Inpatient Speech Therapy Comment: No overt s/s of aspiration with PO trials. Patient became fatigued and short of breath while chewing and eventually spit out hard solid. Improved oral phase with pureed solids- complete oral clearance and timely oral prep. Patient tolerated thin liquid with no overt s/s of aspiration. Recommend UPGRADE to PUREED (NDD1) solids, THIN liquids, and CRUSHED pills in PUREE. Patient requires total supervision at the very least to monitor for any overt s/s of aspiration and ensure strict aspiration precautions. Patient requires assistance with tray set up and may require some assistance feeding. Recommend continue frequent oral care and positioning of bed at least 30 degrees to reduce risk of microaspiration. RECREATION TEACHER to return tomorrow morning to monitor tolerance and re-assess potential for upgrade. Frequency/Duration: Date Range for Service Req: Timeline to reassess: Additional Comments: Patient is Irish-speaking. She is admitted for COVID19 pneumonitis and ARDS. She was intubated for 11 days and extubated successfully on 07/26/21. Patient is weaned to high flow nasal cannula. She was re-intubated on 07/29/21 due to worsening interstitial lung disease and aspiration event. Patient was extubated yesterday and is on nasal cannula/venturi mask. RECREATION TEACHER checked in with MD and RN. Per MD, patient is appropriate to be seen this morning for PO trials. Patient tolerates short breaks from venturi mask and has nasal cannula. Venturi mask to be removed momentarily for presentation of PO. Per chart review, last night patient tolerated PO fluids well. 08/03: Pt was reintubated 07/29 due to hypoxemia likely related to an aspiration event, per paper cleaner's notes. Pt was successfully extubated 08/01. Per Dr. Smith's notes, pt's sputum is growing filamentous fungus. Current diet consistency NDD1 PUREED solids with THIN liquids. Treatment: Pt was recently upgraded to a regular diet and thin liquids. Pt reported having breakfast this morning of a variety of textures (eggs, day) as well as coffee and juice, all of which she tolerated well without difficulty by her report. Pt was seated upright in cardiac chair this morning, mildly confused by control for bed (attempting to raise head of chair with bed control). Pt. took sips of apple juice from cup independently and demonstrated swallow WNL. Pt. independently took bites of emil cracker, with self report of mild difficulty clearing all solids, but then independently cleared with tongue sweep and sip of liquid. Pt. is tolerating current diet well 08/15/2021: Pt seated in cardiac chair this morning. She reported taking a variety of solid textures this morning with no difficulty. Pt. took sips of thin liquid from cup, with swallow phases WNL. Pt. took bites of emil cracker, and again had mild difficulty clearing (sticking to the roof of mouth, but then cleared with tongue and additional sip of juice, independently. Mild delay of oral phase due to mastication on hard solid with all other phases of swallow WNL. Pt is tolerating regular diet well. Currently recommend discharge from RECREATION TEACHER services. Assessment: Hydropulper Operator Clinican/Clinical Fellow: No Supervisory Statement: I have reviewed and agree with the student/clinical fellow's documentation: N/A Speech Language Pathologist: Yue Dasilva M.A., [facility]-RECREATION TEACHER
[2021-08-16] VITALS (8 sets, daily range): BP systolic 100–116; BP diastolic 62–79; PULSE 84–106; RESP 14–20; TEMP 36.2–36.6; O2SAT 88–98; BMI 22.8
[2021-08-16] MEDS: Enoxaparin Sodium 40 MG/0.4 ML SYRINGE SUBCUT (07:48)
[2021-08-16] MEDS: Propranolol HCL 40 MG TABLET PO (07:48)
[2021-08-16] MEDS: 0.9 % Sodium Chloride Flush 3 ML SYRINGE IVFLUSH ×3 (07:58→19:40)
--- NOTE | 2021-08-16 12:41 | HO.PM.IMPN ---
Subjective Subjective Date of Service: 08/16/21 Interval History: f/u post covid syndorme, hypoxia with activity, doing well otherwise, O2 at 98 by NC, but drops with activity Review of Systems no fever no sob Physical Exam Vital Signs: Vital Signs: Last Vital Signs Temp 97.9 F 08/16/21 11:16 Pulse 84 08/16/21 11:16 Resp 19 08/16/21 11:16 BP 105/62 08/16/21 11:16 Pulse Ox 98 08/16/21 11:16 Body Mass Index 22.8 Const: Other: General: AO X 3, no acute distress Resp: normal breathing patter, clear CVS: S1,S2,RRR GI: +BS, NT, no distention Skin: No rash Neuro: motor grossly intact Psych: appropriate affect Objective Data Active Medications Acetaminophen (Acetaminophen 325 Mg Tablet) 650 mg PO Q6H PRN PRN Reason: Pain, Mild (Pain Scale 1-3) Last Admin: 08/15/21 15:45 Dose: 650 mg Documented by: RAJI Enoxaparin Sodium (Enoxaparin Sodium 40 Mg/0.4 Ml Syringe) 40 mg SUBCUT Q24H [facility] Last Admin: 08/16/21 07:48 Dose: 40 mg Documented by: RAJI Ondansetron HCl (Ondansetron Hcl 4 Mg/2 Ml Vial) 4 mg IVPUSH Q6H PRN PRN Reason: nausea Last Admin: 08/03/21 10:29 Dose: 4 mg Documented by: KAPIL Propranolol HCl (Propranolol Hcl 40 Mg Tablet) 40 mg PO DAILY [facility]; Protocol Last Admin: 08/16/21 07:48 Dose: 40 mg Documented by: RAJI Sodium Chloride (0.9 % Sodium Chloride Flush 3 Ml Syringe) 3 ml IVFLUSH QSHIFT [facility] Last Admin: 08/16/21 07:58 Dose: 3 ml Documented by: RAJI Labs CBC & Chem 7: 08/10/21 06:51 08/10/21 06:51 Microbiology Microbiology Results: Microbiology 07/29/21 13:44 Gram Stain - Final Sputum - Suctioned Sputum Culture - Final Aspergillus fumigatus Assessment and Plan (1) Tachycardia: Status: Acute (2) Acute respiratory failure with hypoxia: Status: Acute (3) Pneumonia due to COVID-19 virus: Status: Acute Assessment and Plan: 41-year-old Singaporean-speaking female with no significant past medical history admitted for COVID-19, requiring ICU leval of care from 07/02 to 07/28 and 11 days of intubation (07/15-07/26) complicated by pneumomediastinum downgraded to IMC on 07/28 and then returned to the ICU the following day and was reintubated for worsening respiratory status. She was extubated 08/01 and downgraded to the medical floor 08/04.? Her hospital course has been complicated by severe anxiety/panic attacks. No new issues, awaiting rehab bed Covid 19 related acute hypoxic resp failure, prolonged hospitalization d/t post covid syndrome intubated from 07/15 to 07/26 then again 07/29-08/01 Now saturating 98 on 2 liters but desaturate markedly with minimal effort, patient agreed for rehab, case packer and sealer looking for rehab bed sputum cx from 07/17 grew MSSA, completed doxycycline sputum culture was growing filamentous fungus, initially started on voriconazole which was later d/c as it was thought to be colonization Hgb A1C 6 no need for point of care, and no need for orthostatic BP Tachycardia, likely due to anxiety, decondtioning , still with intermittent tachycardia, continue Propranolol Severe anxiet, benzo or Atarax PRN--? Psych consult for permanent treatment Bilateral breast mass noted on admission ct chest measuring approximately 2.3 cm on the left and 1.6 cm on the right. Recommend outpatient follow up PT, respiratory recommend STR, waiting for rehab bed, patient moved to non isolation room. Quality Stroke Does the patient have a stroke diagnosis?: No VTE Prior VTE?: No VTE Risk Level:: Medical - moderate - high VTE Device Contraindication: Treatment Not Indicated VTE Drug Contraindication: N/A - Med Ordered
[2021-08-16 16:30] LABS: Glucose, Whole Blood 127 mg/dL (60-115)
[2021-08-16] MEDS: Acetaminophen 325 MG TABLET 650 MG PO (16:47)
[2021-08-17] VITALS (9 sets, daily range): BP systolic 104–117; BP diastolic 55–76; PULSE 75–98; RESP 18–20; TEMP 36.2–36.7; O2SAT 92–100; BMI 23.3
[2021-08-17] MEDS: 0.9 % Sodium Chloride Flush 3 ML SYRINGE IVFLUSH ×3 (10:00→20:58)
[2021-08-17] MEDS: Enoxaparin Sodium 40 MG/0.4 ML SYRINGE SUBCUT (10:01)
[2021-08-17] MEDS: Propranolol HCL 40 MG TABLET PO (10:01)
--- NOTE | 2021-08-17 13:11 | MHC.CLN ---
F/U PO INTAKE IMPROVED 75/100% DIET RX: REGULAR-APPROPRIATE PT RECEIVING ENSURE TID TO PROVIDE 1050KCALS, 60G PROTEIN TO PROMOTE WOUND HEALING PT REPORTED SHE HAS BEEN DRINKING HALF THE SHAKES, AND APPETITE IS GOOD NSG NOTED WOUNDS HEALING CONTINUE TO MONITOR PO INTAKE CLOSELY GOAL IMPROVED WOUND HEALING
--- NOTE | 2021-08-17 13:18 | MHC.CM.PN ---
CM has broadened SNF search and still no bed acceptance. CM will continue to follow.
--- NOTE | 2021-08-17 14:11 | PC.NURSE ---
Skin assessment follow up done today. Patient has small stage 2 to bilateral buttock very close to healing. Cream applied with foam dressings.
--- NOTE | 2021-08-17 15:32 | HO.PM.IMPN ---
Subjective Subjective Date of Service: 08/17/21 Interval History: f/u post covid syndorme, hypoxia with activity, doing well otherwise, O2 at 98 by NC, but drops with activity, no change Physical Exam Vital Signs: Vital Signs: Last Vital Signs Temp 97.2 F 08/17/21 15:02 Pulse 98 08/17/21 15:02 Resp 20 08/17/21 15:02 BP 107/55 L 08/17/21 15:02 Pulse Ox 97 08/17/21 15:02 Body Mass Index 23.3 Const: Other: General: AO X 3, no acute distress Resp: normal breathing patter, clear CVS: S1,S2,RRR GI: +BS, NT, no distention Skin: No rash Neuro: motor grossly intact Psych: appropriate affect Objective Data Active Medications Acetaminophen (Acetaminophen 325 Mg Tablet) 650 mg PO Q6H PRN PRN Reason: Pain, Mild (Pain Scale 1-3) Last Admin: 08/16/21 16:47 Dose: 650 mg Documented by: RAJI Enoxaparin Sodium (Enoxaparin Sodium 40 Mg/0.4 Ml Syringe) 40 mg SUBCUT Q24H [facility] Last Admin: 08/17/21 10:01 Dose: 40 mg Documented by: JORY Ondansetron HCl (Ondansetron Hcl 4 Mg/2 Ml Vial) 4 mg IVPUSH Q6H PRN PRN Reason: nausea Last Admin: 08/03/21 10:29 Dose: 4 mg Documented by: KAPIL Propranolol HCl (Propranolol Hcl 40 Mg Tablet) 40 mg PO DAILY [facility]; Protocol Last Admin: 08/17/21 10:01 Dose: 40 mg Documented by: JORY Sodium Chloride (0.9 % Sodium Chloride Flush 3 Ml Syringe) 3 ml IVFLUSH QSHIFT [facility] Last Admin: 08/17/21 10:00 Dose: 3 ml Documented by: JORY Labs CBC & Chem 7: 08/10/21 06:51 08/10/21 06:51 Labs: Laboratory Results - last 24 hr 08/16/21 16:05 POC Glucose 127 H Assessment and Plan (1) Tachycardia: Status: Acute (2) Acute respiratory failure with hypoxia: Status: Acute (3) Pneumonia due to COVID-19 virus: Status: Acute Assessment and Plan: 41-year-old Maldivian-speaking female with no significant past medical history admitted for COVID-19, requiring ICU leval of care from 07/02 to 07/28 and 11 days of intubation (07/15-07/26) complicated by pneumomediastinum downgraded to IMC on 07/28 and then returned to the ICU the following day and was reintubated for worsening respiratory status. She was extubated 08/01 and downgraded to the medical floor 08/04.? Her hospital course has been complicated by severe anxiety/panic attacks. No new issues, awaiting rehab bed Covid 19 related acute hypoxic resp failure, prolonged hospitalization d/t post covid syndrome intubated from 07/15 to 07/26 then again 07/29-08/01 Now saturating 98 on 2 liters but desaturate markedly with minimal effort, patient agreed for rehab, assistant case manager looking for rehab bed sputum cx from 07/17 grew MSSA, completed doxycycline sputum culture was growing filamentous fungus, initially started on voriconazole which was later d/c as it was thought to be colonization Hgb A1C 6 no need for point of care, and no need for orthostatic BP Tachycardia, likely due to anxiety, decondtioning , still with intermittent tachycardia, continue Propranolol Severe anxiet, benzo or Atarax PRN--? Psych consult for permanent treatment Bilateral breast mass noted on admission ct chest measuring approximately 2.3 cm on the left and 1.6 cm on the right. Recommend outpatient follow up PT, respiratory recommend STR, while awaiting rehab bed, will try to wean down off DC TLC, peripheral line Quality Stroke Does the patient have a stroke diagnosis?: No VTE Prior VTE?: No VTE Risk Level:: Medical - moderate - high VTE Device Contraindication: Treatment Not Indicated VTE Drug Contraindication: N/A - Med Ordered
--- NOTE | 2021-08-17 20:24 | PC.NURSE ---
removed TLC from left IJ at 16:20, after obtiaining peripheral access, no signs of bleeding, Well tolerated.
[2021-08-17] MEDS: Acetaminophen 325 MG TABLET 650 MG PO (21:02)
[2021-08-18] VITALS (8 sets, daily range): BP systolic 100–118; BP diastolic 58–76; PULSE 80–98; RESP 19–20; TEMP 35.5–36.6; O2SAT 95–100
[2021-08-18] MEDS: 0.9 % Sodium Chloride Flush 3 ML SYRINGE IVFLUSH ×2 (08:05→17:19)
[2021-08-18] MEDS: Enoxaparin Sodium 40 MG/0.4 ML SYRINGE SUBCUT (08:06)
[2021-08-18] MEDS: Propranolol HCL 40 MG TABLET PO (08:06)
--- NOTE | 2021-08-18 11:20 | HO.PM.IMPN ---
Subjective Subjective Date of Service: 08/18/21 Interval History: f/u post covid syndorme, hypoxia with activity, doing well otherwise, O2 at 98 by NC, but drops into 70 and 80s with minimal exertion, other than that she feels good Review of Systems no fever no sob Physical Exam Vital Signs: Vital Signs: Last Vital Signs Temp 96 F L 08/18/21 11:08 Pulse 85 08/18/21 11:08 Resp 19 08/18/21 11:08 BP 101/63 08/18/21 11:08 Pulse Ox 98 08/18/21 11:08 Body Mass Index 23.3 Const: Other: General: AO X 3, no acute distress Resp: normal breathing patter, clear CVS: S1,S2,RRR GI: +BS, NT, no distention Skin: No rash Neuro: motor grossly intact Psych: appropriate affect Objective Data Active Medications Acetaminophen (Acetaminophen 325 Mg Tablet) 650 mg PO Q6H PRN PRN Reason: Pain, Mild (Pain Scale 1-3) Last Admin: 08/17/21 21:02 Dose: 650 mg Documented by: RUTH Enoxaparin Sodium (Enoxaparin Sodium 40 Mg/0.4 Ml Syringe) 40 mg SUBCUT Q24H [facility] Last Admin: 08/18/21 08:06 Dose: 40 mg Documented by: VIRGINIA Hydroxyzine HCl (Hydroxyzine Hcl 25 Mg Tablet) 25 mg PO Q6H PRN PRN Reason: anxiety/restlessness Ondansetron HCl (Ondansetron Hcl 4 Mg/2 Ml Vial) 4 mg IVPUSH Q6H PRN PRN Reason: nausea Last Admin: 08/03/21 10:29 Dose: 4 mg Documented by: KAPIL Propranolol HCl (Propranolol Hcl 40 Mg Tablet) 40 mg PO DAILY [facility]; Protocol Last Admin: 08/18/21 08:06 Dose: 40 mg Documented by: VIRGINIA Sodium Chloride (0.9 % Sodium Chloride Flush 3 Ml Syringe) 3 ml IVFLUSH QSHIFT [facility] Last Admin: 08/18/21 08:05 Dose: 3 ml Documented by: VIRGINIA Labs CBC & Chem 7: 08/10/21 06:51 08/10/21 06:51 Assessment and Plan (1) Pneumonia due to COVID-19 virus: Status: Acute Assessment and Plan: 41-year-old Indonesian-speaking female with no significant past medical history admitted for COVID-19, requiring ICU leval of care from 07/02 to 07/28 and 11 days of intubation (07/15-07/26) complicated by pneumomediastinum downgraded to IMC on 07/28 and then returned to the ICU the following day and was reintubated for worsening respiratory status. She was extubated 08/01 and downgraded to the medical floor 08/04.? Her hospital course has been complicated by severe anxiety/panic attacks. No new issues, awaiting rehab bed or been able to discharge her safely home with O2 Covid 19 related acute hypoxic resp failure, prolonged hospitalization d/t post covid syndrome intubated from 07/15 to 07/26 then again 07/29-08/01 Now saturating 98 on 2 liters but desaturate markedly with minimal effort, patient agreed for rehab, manager case looking for rehab bed sputum cx from 07/17 grew MSSA, completed doxycycline sputum culture was growing filamentous fungus, initially started on voriconazole which was later d/c as it was thought to be colonization Hgb A1C 6 no need for point of care, and no need for orthostatic BP Tachycardia, likely due to anxiety, decondtioning , still with intermittent tachycardia, continue Propranolol Severe anxiet, benzo or Atarax PRN--? Psych consult for permanent treatment Bilateral breast mass noted on admission ct chest measuring approximately 2.3 cm on the left and 1.6 cm on the right. Recommend outpatient follow up PT, respiratory recommend STR, while awaiting rehab bed, will try to wean down off ne Quality Stroke Does the patient have a stroke diagnosis?: No VTE Prior VTE?: No VTE Risk Level:: Medical - moderate - high VTE Device Contraindication: Treatment Not Indicated VTE Drug Contraindication: N/A - Med Ordered
--- NOTE | 2021-08-18 11:49 | PC.NURSE ---
o2 changed to RA per Dr. Dumont request while sitting in chair. Will monitor o2 sats
[2021-08-18] MEDS: Acetaminophen 325 MG TABLET 650 MG PO (20:27)
[2021-08-19] VITALS (13 sets, daily range): BP systolic 100–114; BP diastolic 59–73; PULSE 80–111; RESP 17–20; TEMP 36.4–36.7; O2SAT 89–100; BMI 24.0
[2021-08-19] MEDS: 0.9 % Sodium Chloride Flush 3 ML SYRINGE IVFLUSH ×3 (01:19→14:47)
[2021-08-19] MEDS: hydrOXYzine HCL 25 MG TABLET PO (08:05)
[2021-08-19] MEDS: Enoxaparin Sodium 40 MG/0.4 ML SYRINGE SUBCUT (08:05)
[2021-08-19] MEDS: Propranolol HCL 40 MG TABLET PO (08:06)
--- NOTE | 2021-08-19 09:31 | P.PNIM_ITS ---
Subjective Subjective Date of Service: 08/19/21 Interval History: f/u post covid syndorme, hypoxia with activity, doing well otherwise, O2 at 98 by NC, but drops into 70 and 80s with minimal exertion, other than that she feels good--no new issues Review of Systems no fever no sob Physical Exam Vital Signs: Vital Signs: Last Vital Signs Temp 97.6 F 08/19/21 07:59 Pulse 111 H 08/19/21 08:06 Resp 20 08/19/21 07:59 BP 114/71 08/19/21 08:06 Pulse Ox 99 08/19/21 07:59 Body Mass Index 24.0 Const: Other: General: AO X 3, no acute distress Resp: normal breathing patter, clear CVS: S1,S2,RRR GI: +BS, NT, no distention Skin: No rash Neuro: motor grossly intact Psych: appropriate affect Objective Data Active Medications Acetaminophen (Acetaminophen 325 Mg Tablet) 650 mg PO Q6H PRN PRN Reason: Pain, Mild (Pain Scale 1-3) Last Admin: 08/18/21 20:27 Dose: 650 mg Documented by: CASPER Enoxaparin Sodium (Enoxaparin Sodium 40 Mg/0.4 Ml Syringe) 40 mg SUBCUT Q24H [facility] Last Admin: 08/19/21 08:05 Dose: 40 mg Documented by: AUGIE Hydroxyzine HCl (Hydroxyzine Hcl 25 Mg Tablet) 25 mg PO Q6H PRN PRN Reason: anxiety/restlessness Last Admin: 08/19/21 08:05 Dose: 25 mg Documented by: AUGIE Ondansetron HCl (Ondansetron Hcl 4 Mg/2 Ml Vial) 4 mg IVPUSH Q6H PRN PRN Reason: nausea Last Admin: 08/03/21 10:29 Dose: 4 mg Documented by: KAPIL Propranolol HCl (Propranolol Hcl 40 Mg Tablet) 40 mg PO DAILY [facility]; Protocol Last Admin: 08/19/21 08:06 Dose: 40 mg Documented by: AUGIE Sodium Chloride (0.9 % Sodium Chloride Flush 3 Ml Syringe) 3 ml IVFLUSH QSHIFT [facility] Last Admin: 08/19/21 08:06 Dose: 3 ml Documented by: AUGIE Labs CBC & Chem 7: 08/10/21 06:51 08/10/21 06:51 Assessment and Plan (1) COVID-19: Status: Acute (2) Breast mass: Status: Acute Assessment and Plan: 41-year-old Singaporean-speaking female with no significant past medical history admitted for COVID-19, requiring ICU leval of care from 07/02 to 07/28 and 11 days of intubation (07/15-07/26) complicated by pneumomediastinum downgraded to IMC on 07/28 and then returned to the ICU the following day and was reintubated for worsening respiratory status. She was extubated 08/01 and downgraded to the medical floor 08/04.? Her hospital course has been complicated by severe anxiety/panic attacks. No new issues, awaiting rehab bed or been able to discharge her safely home with O2.. no new issues today Covid 19 related acute hypoxic resp failure, prolonged hospitalization d/t post covid syndrome intubated from 07/15 to 07/26 then again 07/29-08/01 Now saturating 98 on 2 liters but desaturate markedly with minimal effort, patient agreed for rehab, catalytic case operator looking for rehab bed sputum cx from 07/17 grew MSSA, completed doxycycline sputum culture was growing filamentous fungus, initially started on voriconazole which was later d/c as it was thought to be colonization Hgb A1C 6 no need for point of care, and no need for orthostatic BP Tachycardia, likely due to anxiety, decondtioning , still with intermittent tachycardia, continue Propranolol Severe anxiety, benzo or Atarax PRN--? Psych consult for permanent treatment Bilateral breast mass noted on admission ct chest measuring approximately 2.3 cm on the left and 1.6 cm on the right. Recommend outpatient follow up PT, respiratory recommend STR, while awaiting rehab bed, will try to wean down off ne Quality Stroke Does the patient have a stroke diagnosis?: No VTE Prior VTE?: No VTE Risk Level:: Medical - moderate - high VTE Device Contraindication: Treatment Not Indicated VTE Drug Contraindication: N/A - Med Ordered
--- NOTE | 2021-08-19 11:08 | MHC.CLN ---
Addendum entered by Jayna Turner, KRISSY 08/19/21 13:14: AGREE WITH PROVIDER'S ASSESSMENT BELOW Original Note: F/U PO INTAKE DOCUMENTED MAINLY 100%, 50% X 1 MEAL, 75% X 1 MEAL DIET RX: REGULAR-APPROPRIATE PT RECEIVING ENSURE TID TO PROVIDE 1050KCALS, 60G PROTEIN TO PROMOTE WOUND HEALING PT PREVIOUSLY REPORTED SHE HAS BEEN DRINKING HALF THE SHAKES NSG REPORTED SMALL STAGE II WOUND ON BUTTOCK IS VERY CLOSE TO HEALING CONTINUE TO MONITOR PO INTAKE CLOSELY GOAL IMPROVED WOUND HEALING
--- NOTE | 2021-08-19 16:30 | MHC.CM.PN ---
DP is STR. Pt has not received a bed offer. The bed search continues. More referrals were sent out today. Patient will transport via BLS at discharge.
[2021-08-20] VITALS (7 sets, daily range): BP systolic 100–119; BP diastolic 44–74; PULSE 90–105; RESP 19–20; TEMP 36.1–36.9; O2SAT 92–95; BMI 23.9
[2021-08-20] MEDS: Acetaminophen 325 MG TABLET 650 MG PO ×2 (03:38→20:57)
[2021-08-20] MEDS: 0.9 % Sodium Chloride Flush 3 ML SYRINGE IVFLUSH ×4 (06:17→20:57)
[2021-08-20] MEDS: Enoxaparin Sodium 40 MG/0.4 ML SYRINGE SUBCUT (09:41)
[2021-08-20] MEDS: Propranolol HCL 40 MG TABLET PO (09:41)
--- NOTE | 2021-08-20 10:36 | P.PNIM_ITS ---
Subjective Subjective Date of Service: 08/20/21 Interval History: f/u post covid syndorme, hypoxia with activity, doing well otherwise, O2 at 98 by NC, but drops into 70 and 80s with minimal activity, no new issues Review of Systems no fever no sob anxiety at times Physical Exam Vital Signs: Vital Signs: Last Vital Signs Temp 98.2 F 08/20/21 08:00 Pulse 101 H 08/20/21 09:41 Resp 20 08/20/21 08:00 BP 107/66 08/20/21 09:41 Pulse Ox 93 08/20/21 08:00 Body Mass Index 23.9 Const: Other: General: AO X 3, no acute distress Resp: normal breathing patter, clear CVS: S1,S2,RRR GI: +BS, NT, no distention Skin: No rash Neuro: motor grossly intact Psych: appropriate affect Objective Data Active Medications Acetaminophen (Acetaminophen 325 Mg Tablet) 650 mg PO Q6H PRN PRN Reason: Pain, Mild (Pain Scale 1-3) Last Admin: 08/20/21 03:38 Dose: 650 mg Documented by: VINH Enoxaparin Sodium (Enoxaparin Sodium 40 Mg/0.4 Ml Syringe) 40 mg SUBCUT Q24H [facility] Last Admin: 08/20/21 09:41 Dose: 40 mg Documented by: RAJI Hydroxyzine HCl (Hydroxyzine Hcl 25 Mg Tablet) 25 mg PO Q6H PRN PRN Reason: anxiety/restlessness Last Admin: 08/19/21 08:05 Dose: 25 mg Documented by: AUGIE Ondansetron HCl (Ondansetron Hcl 4 Mg/2 Ml Vial) 4 mg IVPUSH Q6H PRN PRN Reason: nausea Last Admin: 08/03/21 10:29 Dose: 4 mg Documented by: KAPIL Propranolol HCl (Propranolol Hcl 40 Mg Tablet) 40 mg PO DAILY [facility]; Protocol Last Admin: 08/20/21 09:41 Dose: 40 mg Documented by: RAJI Sodium Chloride (0.9 % Sodium Chloride Flush 3 Ml Syringe) 3 ml IVFLUSH QSHIFT [facility] Last Admin: 08/20/21 09:43 Dose: 3 ml Documented by: RAJI Labs CBC & Chem 7: 08/10/21 06:51 08/10/21 06:51 Assessment and Plan (1) Post covid-19 condition, unspecified: Status: Acute Assessment and Plan: 41-year-old Portuguese-speaking female with no significant past medical history admitted for COVID-19, requiring ICU leval of care from 07/02 to 07/28 and 11 days of intubation (07/15-07/26) complicated by pneumomediastinum downgraded to IMC on 07/28 and then returned to the ICU the following day and was reintubated for worsening respiratory status. She was extubated 08/01 and downgraded to the medical floor 08/04.? Her hospital course has been complicated by severe anxiety/panic attacks. No new issues, awaiting rehab bed or been able to discharge her safely home with O2.. no new issues today Covid 19 related acute hypoxic resp failure, prolonged hospitalization d/t post covid syndrome intubated from 07/15 to 07/26 then again 07/29-08/01 Now saturating 98 on 2 liters but desaturate markedly with minimal effort, patient agreed for rehab, business case analyst looking for rehab bed sputum cx from 07/17 grew MSSA, completed doxycycline sputum culture was growing filamentous fungus, initially started on voriconazole which was later d/c as it was thought to be colonization Hgb A1C 6 no need for point of care, and no need for orthostatic BP Tachycardia, likely due to anxiety, decondtioning , still with intermittent tachycardia, continue Propranolol Severe anxiety, benzo or Atarax PRN--? Psych consult for permanent treatment Bilateral breast mass noted on admission ct chest measuring approximately 2.3 cm on the left and 1.6 cm on the right. Recommend outpatient follow up PT, respiratory recommend STR, while awaiting rehab bed, will try to wean down off ne Quality Stroke Does the patient have a stroke diagnosis?: No VTE Prior VTE?: No VTE Risk Level:: Medical - moderate - high VTE Device Contraindication: Treatment Not Indicated VTE Drug Contraindication: N/A - Med Ordered
[2021-08-21] VITALS (7 sets, daily range): BP systolic 100–115; BP diastolic 64–77; PULSE 78–98; RESP 17–20; TEMP 36.1–36.5; O2SAT 92–100; BMI 23.8
[2021-08-21] MEDS: Enoxaparin Sodium 40 MG/0.4 ML SYRINGE SUBCUT (10:17)
[2021-08-21] MEDS: Propranolol HCL 40 MG TABLET PO (10:17)
[2021-08-21] MEDS: 0.9 % Sodium Chloride Flush 3 ML SYRINGE IVFLUSH (10:17)
--- NOTE | 2021-08-21 10:40 | P.PNIM_ITS ---
Subjective Subjective Date of Service: 08/21/21 Interval History: f/u post covid syndorme, hypoxia with activity, doing well otherwise, O2 at 98 by NC, but drops into 70 and 80s with minimal activity, continues to make incremental progress Review of Systems no fever no sob anxiety at times Physical Exam Vital Signs: Vital Signs: Last Vital Signs Temp 97.7 F 08/21/21 08:00 Pulse 78 08/21/21 10:17 Resp 18 08/21/21 08:00 BP 112/68 08/21/21 10:17 Pulse Ox 95 08/21/21 08:00 Body Mass Index 23.8 Const: Other: General: AO X 3, no acute distress Resp: normal breathing patter, clear CVS: S1,S2,RRR GI: +BS, NT, no distention Skin: No rash Neuro: motor grossly intact Psych: appropriate affect Objective Data Active Medications Acetaminophen (Acetaminophen 325 Mg Tablet) 650 mg PO Q6H PRN PRN Reason: Pain, Mild (Pain Scale 1-3) Last Admin: 08/20/21 20:57 Dose: 650 mg Documented by: JACINTO Enoxaparin Sodium (Enoxaparin Sodium 40 Mg/0.4 Ml Syringe) 40 mg SUBCUT Q24H [facility] Last Admin: 08/21/21 10:17 Dose: 40 mg Documented by: RAJI Hydroxyzine HCl (Hydroxyzine Hcl 25 Mg Tablet) 25 mg PO Q6H PRN PRN Reason: anxiety/restlessness Last Admin: 08/19/21 08:05 Dose: 25 mg Documented by: AUGIE Ondansetron HCl (Ondansetron Hcl 4 Mg/2 Ml Vial) 4 mg IVPUSH Q6H PRN PRN Reason: nausea Last Admin: 08/03/21 10:29 Dose: 4 mg Documented by: KAPIL Propranolol HCl (Propranolol Hcl 40 Mg Tablet) 40 mg PO DAILY [facility]; Protocol Last Admin: 08/21/21 10:17 Dose: 40 mg Documented by: RAJI Sodium Chloride (0.9 % Sodium Chloride Flush 3 Ml Syringe) 3 ml IVFLUSH QSHIFT [facility] Last Admin: 08/21/21 10:17 Dose: 3 ml Documented by: RAJI Labs CBC & Chem 7: 08/10/21 06:51 08/10/21 06:51 Assessment and Plan (1) Post covid-19 condition, unspecified: Status: Acute Assessment and Plan: 41-year-old Thai-speaking female with no significant past medical history admitted for COVID-19, requiring ICU leval of care from 07/02 to 07/28 and 11 days of intubation (07/15-07/26) complicated by pneumomediastinum downgraded to IMC on 07/28 and then returned to the ICU the following day and was reintubated for worsening respiratory status. She was extubated 08/01 and downgraded to the medical floor 08/04.? Her hospital course has been complicated by severe anxiety/panic attacks. No new issues, awaiting rehab bed or been able to discharge her safely home with O2.. no new issue today, continue below care Covid 19 related acute hypoxic resp failure, prolonged hospitalization d/t post covid syndrome intubated from 07/15 to 07/26 then again 07/29-08/01 Now saturating 98 on 2 liters but desaturate markedly with minimal effort, patient agreed for rehab, special education case manager looking for rehab bed sputum cx from 07/17 grew MSSA, completed doxycycline sputum culture was growing filamentous fungus, initially started on voriconazole which was later d/c as it was thought to be colonization Hgb A1C 6 no need for point of care, and no need for orthostatic BP Tachycardia, likely due to anxiety, decondtioning , still with intermittent tachycardia, continue Propranolol Severe anxiety, benzo or Atarax PRN--? Psych consult for permanent treatment Bilateral breast mass noted on admission ct chest measuring approximately 2.3 cm on the left and 1.6 cm on the right. Recommend outpatient follow up PT, respiratory recommend STR, while awaiting rehab bed, will try to wean down off and see see how does with ambulation and perhaps to go home with O2, will discuss with respiratory ne Quality Stroke Does the patient have a stroke diagnosis?: No VTE Prior VTE?: No VTE Risk Level:: Medical - moderate - high VTE Device Contraindication: Treatment Not Indicated VTE Drug Contraindication: N/A - Med Ordered
[2021-08-22] VITALS (9 sets, daily range): BP systolic 99–110; BP diastolic 58–70; PULSE 88–98; RESP 17–20; TEMP 36.1–36.7; O2SAT 86–100; BMI 24.0
[2021-08-22] MEDS: Enoxaparin Sodium 40 MG/0.4 ML SYRINGE SUBCUT (09:39)
[2021-08-22] MEDS: Propranolol HCL 40 MG TABLET PO (09:39)
[2021-08-22] MEDS: 0.9 % Sodium Chloride Flush 3 ML SYRINGE IVFLUSH ×3 (09:39→22:48)
--- NOTE | 2021-08-22 10:35 | P.PNIM_ITS ---
Subjective Subjective Date of Service: 08/22/21 Interval History: f/u post covid syndorme, hypoxia with activity, doing well otherwise, O2 at 98 by NC, but drops into 70 and 80s with minimal activity, continues to make incremental progress. Review of Systems no fever no sob anxiety at times Physical Exam Vital Signs: Vital Signs: Last Vital Signs Temp 97.1 F 08/22/21 07:43 Pulse 98 08/22/21 09:39 Resp 18 08/22/21 07:43 BP 103/69 08/22/21 07:43 Pulse Ox 92 08/22/21 09:42 Body Mass Index 24.0 Const: Other: General: AO X 3, no acute distress Resp: normal breathing patter, clear CVS: S1,S2,RRR GI: +BS, NT, no distention Skin: No rash Neuro: motor grossly intact Psych: appropriate affect Objective Data Active Medications Acetaminophen (Acetaminophen 325 Mg Tablet) 650 mg PO Q6H PRN PRN Reason: Pain, Mild (Pain Scale 1-3) Last Admin: 08/20/21 20:57 Dose: 650 mg Documented by: JACINTO Enoxaparin Sodium (Enoxaparin Sodium 40 Mg/0.4 Ml Syringe) 40 mg SUBCUT Q24H [facility] Last Admin: 08/22/21 09:39 Dose: 40 mg Documented by: PORTIA Hydroxyzine HCl (Hydroxyzine Hcl 25 Mg Tablet) 25 mg PO Q6H PRN PRN Reason: anxiety/restlessness Last Admin: 08/19/21 08:05 Dose: 25 mg Documented by: AUGIE Ondansetron HCl (Ondansetron Hcl 4 Mg/2 Ml Vial) 4 mg IVPUSH Q6H PRN PRN Reason: nausea Last Admin: 08/03/21 10:29 Dose: 4 mg Documented by: KAPIL Propranolol HCl (Propranolol Hcl 40 Mg Tablet) 40 mg PO DAILY [facility]; Protocol Last Admin: 08/22/21 09:39 Dose: 40 mg Documented by: PORTIA Sodium Chloride (0.9 % Sodium Chloride Flush 3 Ml Syringe) 3 ml IVFLUSH QSHIFT [facility] Last Admin: 08/22/21 09:39 Dose: 3 ml Documented by: PORTIA Labs CBC & Chem 7: 08/10/21 06:51 08/10/21 06:51 Assessment and Plan (1) Post covid-19 condition, unspecified: Status: Acute Assessment and Plan: 41-year-old Guamanian-speaking female with no significant past medical history admitted for COVID-19, requiring ICU leval of care from 07/02 to 07/28 and 11 days of intubation (07/15-07/26) complicated by pneumomediastinum downgraded to IMC on 07/28 and then returned to the ICU the following day and was reintubated for worsening respiratory status. She was extubated 08/01 and downgraded to the medical floor 08/04.? Her hospital course has been complicated by severe anxiety/panic attacks. No new issues, awaiting rehab bed or been able to discharge her safely home with O2.. no new issue today, continue care as before Covid 19 related acute hypoxic resp failure, prolonged hospitalization d/t post covid syndrome intubated from 07/15 to 07/26 then again 07/29-08/01 Now saturating 98 on 2 liters but desaturate markedly with minimal effort, patient agreed for rehab, binder caser looking for rehab bed sputum cx from 07/17 grew MSSA, completed doxycycline sputum culture was growing filamentous fungus, initially started on voriconazole which was later d/c as it was thought to be colonization Hgb A1C 6 no need for point of care, and no need for orthostatic BP Tachycardia, likely due to anxiety, decondtioning , still with intermittent tachycardia, continue Propranolol Severe anxiety, benzo or Atarax PRN--? Psych consult for permanent treatment Bilateral breast mass noted on admission ct chest measuring approximately 2.3 cm on the left and 1.6 cm on the right. Recommend outpatient follow up PT, respiratory recommend STR, while awaiting rehab bed, will try to wean down off and see see how does with ambulation and perhaps to go home with O2, will discuss with respiratory ne Quality Stroke Does the patient have a stroke diagnosis?: No VTE Prior VTE?: No VTE Risk Level:: Medical - moderate - high VTE Device Contraindication: Treatment Not Indicated VTE Drug Contraindication: N/A - Med Ordered
[2021-08-22] MEDS: hydrOXYzine HCL 25 MG TABLET PO (11:23)
--- NOTE | 2021-08-22 11:28 | MHC.CM.PN ---
SNF search continues; 37 SNF denials thus far.Per MD in [place] today, will try to wean off O2 and see if dc to home is possible.CM will follow.
--- NOTE | 2021-08-22 14:17 | MHC.CLN ---
F/U PO INTAKE DOCUMENTED 100% 08/19-08/22 DIET RX: REGULAR-APPROPRIATE PT RECEIVING ENSURE TID TO PROVIDE 1050KCALS, 60G PROTEIN TO PROMOTE WOUND HEALING NSG REPORTED SMALL STAGE II WOUND ON BUTTOCK IS CLOSE TO HEALING CONTINUE TO MONITOR PO INTAKE CLOSELY GOAL IMPROVED WOUND HEALING
[2021-08-23] VITALS (9 sets, daily range): BP systolic 101–113; BP diastolic 51–77; PULSE 74–100; RESP 16–20; TEMP 36.1–36.7; O2SAT 91–100; BMI 23.8
[2021-08-23] MEDS: Propranolol HCL 40 MG TABLET PO (09:32)
[2021-08-23] MEDS: 0.9 % Sodium Chloride Flush 3 ML SYRINGE IVFLUSH ×2 (09:32→15:39)
[2021-08-23] MEDS: Enoxaparin Sodium 40 MG/0.4 ML SYRINGE SUBCUT (09:32)
--- NOTE | 2021-08-23 13:29 | HO.PM.IMPN ---
Subjective Subjective Date of Service: 08/23/21 Interval History: Being followed for hypoxic respiratory failure/post COVID syndrome, complaining of lightheadedness when she 1st stands up, did not participated with physical therapy today, desaturate to 79% on 1 L when transfer from bed to chair. Review of Systems Constitutional no fever, no chills Respiratory no cough, no shortness of breath at rest GI no nausea no vomiting no urinary frequency or urgency CVS no chest pain Review of Systems: Yes all other systems are reviewed and are negative Physical Exam Vital Signs: Vital Signs: Last Vital Signs Temp 97.6 F 08/23/21 11:00 Pulse 92 08/23/21 11:00 Resp 18 08/23/21 11:00 BP 101/72 08/23/21 11:00 Pulse Ox 97 08/23/21 11:00 Body Mass Index 23.8 General awake alert,no acute distress. Neck supple no JVD. CVS regular rate rhythm, Respiratory diminished breath sounds, no respiratory distress, no wheeze, no rhonchi. Gastrointestinal abdomen soft, nontender, bowel sounds audible Extremities no edema. Neuro nonfocal Skin no rash Psych appropriate affect Objective Data Active Medications Acetaminophen (Acetaminophen 325 Mg Tablet) 650 mg PO Q6H PRN PRN Reason: Pain, Mild (Pain Scale 1-3) Last Admin: 08/20/21 20:57 Dose: 650 mg Documented by: JACINTO Enoxaparin Sodium (Enoxaparin Sodium 40 Mg/0.4 Ml Syringe) 40 mg SUBCUT Q24H CANDI Last Admin: 08/23/21 09:32 Dose: 40 mg Documented by: VIRGINIA Hydroxyzine HCl (Hydroxyzine Hcl 25 Mg Tablet) 25 mg PO Q6H PRN PRN Reason: anxiety/restlessness Last Admin: 08/22/21 11:23 Dose: 25 mg Documented by: PORTIA Ondansetron HCl (Ondansetron Hcl 4 Mg/2 Ml Vial) 4 mg IVPUSH Q6H PRN PRN Reason: nausea Last Admin: 08/03/21 10:29 Dose: 4 mg Documented by: KAPIL Propranolol HCl (Propranolol Hcl 40 Mg Tablet) 40 mg PO DAILY [facility]; Protocol Last Admin: 08/23/21 09:32 Dose: 40 mg Documented by: VIRGINIA Sodium Chloride (0.9 % Sodium Chloride Flush 3 Ml Syringe) 3 ml IVFLUSH QSHIFT [facility] Last Admin: 08/23/21 09:32 Dose: 3 ml Documented by: VIRGINIA Labs CBC & Chem 7: 08/10/21 06:51 08/10/21 06:51 Assessment and Plan (1) Post covid-19 condition, unspecified: Status: Acute (2) Tachycardia: Status: Acute (3) Acute respiratory failure with hypoxia: Status: Acute Assessment and Plan: 41-year-old Syriac-speaking female with no significant past medical history admitted for COVID-19, requiring ICU leval of care from 07/02 to 07/28 and 11 days of intubation (07/15-07/26) complicated by pneumomediastinum downgraded to IMC on 07/28 and then returned to the ICU the following day and was reintubated for worsening respiratory status. She was extubated 08/01 and downgraded to the medical floor 08/04.? Her hospital course has been complicated by severe anxiety/panic attacks. No new issues, awaiting rehab bed or been able to discharge her safely home with O2.. no new issue today, continue care as before Covid 19 related acute hypoxic resp failure,? prolonged hospitalization d/t post covid syndrome intubated from 07/15 to 07/26 then again 07/29-08/01 Now saturating 97 on 1 liters but desaturate markedly with minimal effort, sputum cx from 07/17 grew MSSA, completed doxycycline sputum culture was growing filamentous fungus, initially started on voriconazole which was later d/c as it was thought to be colonization Hgb A1C 6 no need for point of care PT recommended rehab however unable to find rehab bed/will recommend out of bed to chair daily and incentive spirometry Will obtain home oxygen eval, and will rediscuss recommendation from physical therapy Tachycardia, likely due to anxiety, decondtioning , heart rate better controlled on propranolol , therefore will continue Propranolol Severe anxiety, improving continue as needed Atarax Bilateral breast mass noted on admission ct chest??measuring approximately 2.3 cm on the left and 1.6 cm on the right.? Recommend??outpatient follow up PT, recommend STR, while awaiting rehab bed,? will obtain home O2 eval and if patient does good with ambulation will discharge homevwith services Quality Stroke Does the patient have a stroke diagnosis?: No VTE Prior VTE?: No VTE Risk Level:: Medical - moderate - high VTE Device Contraindication: Treatment Not Indicated VTE Drug Contraindication: N/A - Med Ordered
[2021-08-23] MEDS: Acetaminophen 325 MG TABLET 650 MG PO (19:40)
[2021-08-24] VITALS (10 sets, daily range): BP systolic 97–115; BP diastolic 55–78; PULSE 82–122; RESP 18–20; TEMP 36.3–37.3; O2SAT 94–98
[2021-08-24] MEDS: 0.9 % Sodium Chloride Flush 3 ML SYRINGE IVFLUSH ×3 (00:46→22:02)
[2021-08-24] MEDS: Propranolol HCL 40 MG TABLET PO (10:51)
[2021-08-24] MEDS: Enoxaparin Sodium 40 MG/0.4 ML SYRINGE SUBCUT (10:51)
--- NOTE | 2021-08-24 12:21 | MHC.CM.PN ---
Per ROUNDS discussion, Home O2 Eval needed and referral to [facility] has been updates(still no SNF bed offers).CM will follow.
--- NOTE | 2021-08-24 12:22 | MHC.CLN ---
Addendum entered by Jayna Turner, KRISSY 08/24/21 13:58: AGREE WITH PROVIDER'S ASSESSMENT BELOW Original Note: F/U PO INTAKE DOCUMENTED 50% ON 08/23-08/24 DIET RX: REGULAR-APPROPRIATE PT RECEIVING ENSURE TID TO PROVIDE 1050KCALS, 60G PROTEIN TO PROMOTE WOUND HEALING NSG REPORTED WOULD HEALING R/T STAGE II PRESSURE INJURY ON BUTTOCK CONTINUE TO MONITOR PO INTAKE CLOSELY
--- NOTE | 2021-08-24 16:45 | HO.PM.IMPN ---
Subjective Subjective Date of Service: 08/24/21 Interval History: Being followed for post COVID syndrome complaining of palpitations, less shortness of breath and dizziness with activity, participating with physical therapy. Review of Systems Constitutional no fever, no chills Respiratory no cough, no shortness of breath at rest GI no nausea no vomiting CVS no chest pain Review of Systems: Yes all other systems are reviewed and are negative Physical Exam Vital Signs: Vital Signs: Last Vital Signs Temp 97.8 F 08/24/21 15:32 Pulse 93 08/24/21 15:32 Resp 18 08/24/21 15:32 BP 105/70 08/24/21 15:32 Pulse Ox 95 08/24/21 15:32 Body Mass Index 23.8 General awake aler t,no acute distres s.? Neck supple no JVD. CVS? regular rate rhythm, Resp iratory diminished breath sounds, no respiratory distr ess, no wheeze, no rhonchi. Gastroin testinal abdomen s oft, nontender, alysha wel sounds audible Extremities no ed perlita. Neuro nonfoca l Skin no rash Psy ch appropriate aff ect Objective Data Active Medications Acetaminophen (Acetaminophen 325 Mg Tablet) 650 mg PO Q6H PRN PRN Reason: Pain, Mild (Pain Scale 1-3) Last Admin: 08/23/21 19:40 Dose: 650 mg Documented by: KAREN Enoxaparin Sodium (Enoxaparin Sodium 40 Mg/0.4 Ml Syringe) 40 mg SUBCUT Q24H CANDI Last Admin: 08/24/21 10:51 Dose: 40 mg Documented by: TAINA Hydroxyzine HCl (Hydroxyzine Hcl 25 Mg Tablet) 25 mg PO Q6H PRN PRN Reason: anxiety/restlessness Last Admin: 08/22/21 11:23 Dose: 25 mg Documented by: PORTIA Ondansetron HCl (Ondansetron Hcl 4 Mg/2 Ml Vial) 4 mg IVPUSH Q6H PRN PRN Reason: nausea Last Admin: 08/03/21 10:29 Dose: 4 mg Documented by: KAPIL Propranolol HCl (Propranolol Hcl 40 Mg Tablet) 40 mg PO DAILY [facility]; Protocol Last Admin: 08/24/21 10:51 Dose: 40 mg Documented by: TAINA Sodium Chloride (0.9 % Sodium Chloride Flush 3 Ml Syringe) 3 ml IVFLUSH QSHIFT CANDI Last Admin: 08/24/21 10:51 Dose: 3 ml Documented by: TAINA Labs CBC & Chem 7: 08/10/21 06:51 08/10/21 06:51 Assessment and Plan (1) Generalized weakness: Status: Acute (2) Post covid-19 condition, unspecified: Status: Acute (3) Tachycardia: Status: Acute Assessment and Plan: 41-year-old Greenlandic-speaking female with no significant past medical history admitted for COVID-19, requiring ICU leval of care from 07/02 to 07/28 and 11 days of intubation (07/15-07/26) complicated by pneumomediastinum downgraded to IMC on 07/28 and then returned to the ICU the following day and was reintubated for worsening respiratory status. She was extubated 08/01 and downgraded to the medical floor 08/04.? Her hospital course has been complicated by severe anxiety/panic attacks. No new issues, awaiting rehab bed or been able to discharge her safely home with O2.. no new issue today, continue care as before Covid 19 related acute hypoxic resp failure,? prolonged hospitalization d/t post covid syndrome Patient feels better this morning , complaining of palpitation with activity, but less dizziness intubated from 07/15 to 07/26 then again 07/29-08/01 Now saturating 97 on 1 liters but desaturate markedly with minimal effort, sputum cx from 07/17 grew MSSA, completed doxycycline sputum culture was growing filamentous fungus, initially started on voriconazole which was later d/c as it was thought to be colonization Hgb A1C 6 no need for point of half-way O2 eval obtain patient qualifies for 3 L of Oxymizer upon discharge spoke with Physical therapy they recommend bedside commode and front wheel walker will arrange for VNA and PT services Tachycardia, likely due to anxiety, decondtioning , heart rate better controlled on propranolol , therefore will continue Propranolol change dose to 20 mg b.i.d. Severe anxiety, improving continue as needed Atarax Bilateral breast mass noted on admission ct chest??measuring approximately 2.3 cm on the left and 1.6 cm on the right.? Recommend??outpatient follow up Disposition home with VNA services Quality Stroke Does the patient have a stroke diagnosis?: No VTE Prior VTE?: No VTE Risk Level:: Medical - moderate - high VTE Device Contraindication: Treatment Not Indicated VTE Drug Contraindication: N/A - Med Ordered
[2021-08-24] MEDS: Propranolol HCL 20 MG TABLET PO (22:00)
[2021-08-25 04:00] VITALS: BP 100/61; PULSE 83; RESP 18; TEMP 36.9; O2SAT 96
[2021-08-25 07:41] VITALS: BP 102/65; PULSE 90; RESP 18; TEMP 36.1; O2SAT 97
--- NOTE | 2021-08-25 10:10 | MHC.CM.PN ---
Per MD, Patient will be medically cleared for dc to home today, with services.A referral was made to [facility], who has been made aware of today's dc.Per RT, home O2 has already been arranged and Patient will be provided with a portable O2 tank for the drive home.Once Patient is home, RT will have provided a Phone number for Patient to call, to have [facility] deliver the new home O2.Patient is aware of and in agreement with the dc plan.CM will inform Patient's /Omar at [phone]; per Patient, when her is at work, he does not have a signal for his phone.Per Patient's suggestion, CM will call around 11AM.
[2021-08-25] MEDS: Enoxaparin Sodium 40 MG/0.4 ML SYRINGE SUBCUT (10:35)
[2021-08-25] MEDS: 0.9 % Sodium Chloride Flush 3 ML SYRINGE IVFLUSH (10:35)
[2021-08-25 10:36] VITALS: BP 106/61; PULSE 94
[2021-08-25] MEDS: Propranolol HCL 20 MG TABLET PO (10:36)
--- NOTE | 2021-08-25 11:06 | MHC.CM.PN ---
RUDY spoke with Patient's /Omar @ [phone] and reviewed all aspects of the dc plan (VNA, O2, etc).Omar expressed understanding of the dc plan and he stated that he was very happy that his is finally able to return home.RUDY has informed RT, MD,and RN that will be here around 1PM to pick Patient up.
[2021-08-25 11:29] VITALS: BP 97/65; PULSE 86; RESP 18; TEMP 36.8; O2SAT 99
--- NOTE | 2021-08-25 12:17 | MHC.CM.PN ---
[facility] discovered that Patient's PCP/DRINKING WATER TECHNICIAN is no longer Karen Ugalde.Per 's request, CM called 's PCP office (DR.Kenneth Alonso at Ext [phone]) and set Patient up with an appointment tomorrow at 9AM with Dr. Alonso's DRINKING WATER TECHNICIAN Rhonda Puckett. CM has informed [facility] of this appointment.
--- NOTE | 2021-08-25 13:18 | MHC.CM.PN ---
is aware that Patient needs to be at [address] [place] [address] in [place], at 's office at 8:40 am tomorrow and to bring Patient's insurance card; he expressed understanding and ability to get his to this Initial PCP appointment so that she can get VNA services.
--- NOTE | 2021-08-25 13:34 | PM.DS ---
DS: Providers Provider Date of Service: 08/25/21 Date of admission: 07/01/21 01:06 Primary care physician: None Physician Consults: 07/28/21 15:39 Consult to Psychiatry Routine Consulting Provider: Psych Covering Reason for consultation: severe anxiety Has provider been notified: No 07/29/21 14:04 Consult to Infectious Diseases Stat Consulting Provider: Joellen Holt Reason for consultation: Resp infection 07/29/21 14:30 Consult to Infectious Diseases Stat Consulting Provider: Joellen Holt Reason for consultation: post covid resp failure Has provider been notified: Yes 07/29/21 14:32 Consult to Infectious Diseases Routine Consulting Provider: Joellen Holt Reason for consultation: pneumonia Has provider been notified: Yes 08/08/21 09:11 Consult to Psychiatry Routine Consulting Provider: Psych Covering Reason for consultation: severe amxiety Has provider been notified: No DS: Diagnosis Discharge Diagnosis (1) Generalized weakness: Status: Acute (2) Post covid-19 condition, unspecified: Status: Acute (3) Tachycardia: Status: Acute DS: Summary Hospital Course Hospital Course: Chief Complaint: Shortness of breath, cough 41-year-old female with no significant past medical history, on vaccinated against COVID-19 presents to the hospital with complaints of shortness of breath, cough, headache, loss of appetite, nausea vomiting for the past 1 week.? Patient was diagnosed with COVID on 06/26 but her symptoms have persisted and worsened over the past few days.? Patient's is at bedside who is helping with interpretation and reports that ever but in the family including the children have contracted COVID and they are all on vaccinated. Patient denies any chest pain, no abdominal pain, no urinary symptoms and no lower extremity edema.? No numbness tingling or weakness.? All other review of system negative except as mentioned On arrival to the ED her vitals are significant for temp of 98.0?, heart rate of 118, respiratory rate of 36, blood pressure of 108/74, satting 93% on room air but did drop to high 80s and now is on 6 L of oxygen on nasal cannula Labs are significant for WBC count of 5.6, otherwise unremarkable. Chest CT angiogram shows no central pulmonary embolus identified, incomplete assessment of the distal vessels due to respiratory motion artifact.? Extensive bilateral ground-glass opacities consistent with COVID-19 pneumonia and bilateral breast masses Patient admitted for further management 41-year-old Nicaraguan-speaking female with no significant past medical history admitted for COVID-19, requiring ICU leval of care from 07/02 to 07/28 and 11 days of intubation (07/15-07/26) complicated by pneumomediastinum downgraded to IMC on 07/28 and then returned to the ICU the following day and was reintubated for worsening respiratory status. She was extubated 08/01 and downgraded to the medical floor 08/04.? Her hospital course has been complicated by tachycardia for which she has been placed on propranolol 20 mg twice daily, she was also noted to have severe anxiety and panic attacks therefore treated with Atarax now her anxiety has significantly improved but patient due to prolonged hospitalization became severely deconditioned therefore was followed closely by Physical therapy, initial plan was for patient to be discharged to rehab facility, But no rehab accepted her care and since patient has made progress with improvement in her physical condition, therefore she is now being discharged home with VNA and PT services, prior to discharge home O2 eval was obtain and patient qualifies for home oxygen , patient now is feeling better with no shortness of breath at rest, less anxiety and palpitations, therefore she is being discharged home today and has recommended to take propranolol 20 mg twice daily, and to use oxygen as prescribed, will send her home with bedside commode and front wheeled walker. CT chest showed Bilateral breast mass ?measuring approximately 2.3 cm on the left and 1.6 cm on the right.? Recommend??outpatient follow up with PCP for mammogram and further testing. Time Spent with Patient Time attestation: Total time spent providing and/or coordinating discharge services: Discharge coordination time: Greater than 30 minutes Quality: Stroke Does the patient have a stroke diagnosis?: No Physical Exam Vital Signs: Vital Signs: Last Vital Signs Temp 98.2 F 08/25/21 11:29 Pulse 86 08/25/21 11:29 Resp 18 08/25/21 11:29 BP 97/65 08/25/21 11:29 Pulse Ox 99 08/25/21 11:29 Body Mass Index 23.8 General awake alert,no acute distress.? Neck supple no?JVD. CVS? regular?rate rhythm, Respiratory diminished?breath sounds, no?respiratory distress, no wheeze, no?rhonchi. Gastrointestinal abdomen soft, nontender, bowel sounds audible Extremities no edema. Neuro nonfocal Skin no rash Psych appropriate affect Discharge Plan Discharge Patient Disposition: Home Health Service Discharge Diagnosis: Acute hypoxic respiratory failure due to COVID-19 infection Sinus tachycardia Referrals: [facility] [Outside] - 1 Week Physician,None [Primary Care Provider] - 1 Week Discharge Medications: New propranolol 20 mg tablet 20 mg PO BID Qty: 60 RF: 0 (DME) commode Kit See Rx Instructions .Route Qty: 1 RF: 0 (DME) walker Misc See Rx Instructions .Route Qty: 1 RF: 0 Continued acetaminophen 325 mg Tablet 650 mg PO Q6H PRN (Reason: pain/fever) RF: 0 Discontinued ibuprofen 400 mg Tablet 400 mg PO Q6H PRN (Reason: pain/fever) RF: 0 Discharge Orders: Discharge Order (Routine); Ordered 08/25/21 Ordered By: Steve Granados Diet: advance to usual diet Activity on Discharge: As tolerated Stand Alone Forms: Patient Portal Discharge page Care Plan Goals: Patient with generalized weakness anxiety tachycardia and low oxygenation continue home oxygen as recommended, will have VNA and PT services, take propranolol 20 mg twice daily for palpitation, gradually increase activity as tolerated, take high protein diet Health Concerns: PT as tolerated Plan of Treatment: Outpatient follow-up with primary care physician in 1 week Assessment: as above
--- NOTE | 2021-08-25 13:47 | W.MHC.F2F ---
Service Date Service Date: 08/25/21 Encounter Date of encounter: 08/25/21 Reasons for Services Signs and symptoms assessed: Shortness of breath and weakness with activity going home on oxygen, bedside commode and wheeled walker Reason for [facility]: other Reason for physical therapy: home safety and mobility and energy conservation Homebound: Leaving the home is medically contraindicated at this time without the asist of a device and/or another person due to generalized weakness deconditioning due to prolonged hospitalization, need monitoring of respiratory status being discharged home on oxygen. Certification: Based on the above findings, I certify that this patient is confined to the home and needs intermittent [facility] care, physical therapy and/or speech therapy, or continues to need occupational therapy. The patient is under my care, and I have initiated the establishment of the plan of care. The patient will be followed by a physician who will periodically review the plan of care.
--- NOTE | 2021-08-25 14:30 | MHC.CM.PN ---
CM received a call from Patient's asking for CM assistance with providing Dr. Denny's office with Patient's insurance #. CM spoke with the office and gave them Patient's Coup[employer] #- [id number].
--- NOTE | 2021-08-25 16:34 | MHC.CM.PN ---
CM received another call from Patient's stating that PCP's office still cannot accept Patient's insurance ([facility] but NOT [facility] [employer]). CM spoke with [facility] [employer] ([employer]) who changed the insurance in the system.CM called PCP office and spoke with Jana.Reny has changed the appointment to tomorrow at 1PM, rather than 9AM, to allow for the new insurance to show up in the system. CM has relayed all this information to Patient's and instructed Patient's to call CM tomorrow if the issue cannot be resolved before the 1 PM appointment.
--- NOTE | 2021-08-26 12:10 | MHC.CM.PN ---
RUDY received a call from Patient's , Omar.Per Omar,Patient's new insurance is not yet showing up in the system.CM confirmed with [facility] that the change is not yet showing up in the system.RUDY called 's office and changed the initial PCP appointment to 08/29/21 at 1:00 PM, which should give ample time for insurance change to be updated in the system.Omar has indicated that his , is doing great. RUDY explained that [facility] will be able to make their first visit after the initial PCP appointment on Sunday, and should ANY HEALTH CONCERNS arise, to bring Patient directly to the ED.RUDY updated MD of this situation and the SHARMAINEA/Maame
--- NOTE | 2021-08-26 14:22 | MHC.CM.PN ---
CM received a call from Patient's ;per his request, CM has faxed scripts to [facility] in [place] at [phone] for a walker and a commode(Scripts have been uploaded into [employer] as well.
== END 2021-08-25 14:05 | disposition home health service (06) | DRG 130 ==
LOC: HO.ED 07-01 01:05 → HO.EDOVER 07-01 01:53 → HO.ICU 07-01 02:51 → HO.IMC 07-28 16:43 → HO.ICU 07-29 10:14 → HO.IMC 08-04 14:54
PROVIDERS: Anesthesiology; Internal Medicine; Internal Medicine Cardiovascular Disease; Internal Medicine Pulmonary Disease; Nurse Practitioner Acute Care; Physician Assistant; Physician Assistant Medical; Registered Nurse Community Health; Admitting Provider Internal Medicine; Emergency Provider Emergency Medicine; Visit Provider Hospitalist
DX: U07.1 COVID-19 (principal); J12.82 Pneumonia due to coronavirus disease 2019; J95.851 Ventilator associated pneumonia; G92.8 Other toxic encephalopathy; D61.818 Other pancytopenia; E87.0 Hyperosmolality and hypernatremia; J98.2 Interstitial emphysema; J80 Acute respiratory distress syndrome; E66.9 Obesity, unspecified; F43.0 Acute stress reaction; F41.0 Panic disorder [episodic paroxysmal anxiety]; R73.03 Prediabetes; E87.6 Hypokalemia; B95.61 Methicillin susceptible Staphylococcus aureus infection as the cause of diseases classified elsewhere; R00.0 Tachycardia, unspecified; Z68.23 Body mass index [BMI] 23.0-23.9, adult; N63.0 Unspecified lump in unspecified breast; Z87.891 Personal history of nicotine dependence; Z88.5 Allergy status to narcotic agent; Z79.899 Other long term (current) drug therapy
CPT/HCPCS: 0241U; 36415; 71045; 71275; 80048; 80053; 80076; 80202; 81001; 82040; 82728; 82803; 82947; 83036; 83605; 83615; 83735; 83880; 84100; 84145; 84443; 84484; 85025; 85027; 85379; 86140; 86769; 87040; 87070; 87077; 87086; 87107; 87186; 87205; 87635; 92610; 93005; 94002; 94003; 94640; 94660; 94799; 96361; 96374; 96375; 97110; 97116; 97162; 97167; 97530; 97535; 99283; 99285; C1758; J0171; J0295; J1100; J1200; J1650; J1940; J2060; J2185; J2250; J2270; J2370; J2405; J2543; J2765; J2920; J2930; J3010; J3370; J3465; J3475; P9047; Q9967

== ENCOUNTER 2021-09-16 10:29 | Outpatient (REF) | payer OTHER, SELFPAY ==
--- NOTE | ~2021-09-16 | XR_ITS ---
EXAMINATION: XR CHEST CLINICAL INFORMATION: Acute respiratory failure with hypoxia COMPARISON: CT angiogram August 08, 2021 and chest x-ray of July 31, 2021 TECHNIQUE: 2 views of the chest were obtained. FINDINGS: There are regions of interstitial and airspace disease seen diffusely bilaterally similar in appearance to previous studies. Heart normal size. No evidence of pulmonary edema. No pneumothorax or pleural effusion. XR/XR chest 2V IMPRESSION: Diffuse bilateral regions of interstitial disease which is likely inflammatory or infectious in etiology. There is no central peribronchial cuffing present and there is no prominence of the azygos vein and this is not likely to be related to pulmonary edema of cardiogenic nature.
[2021-09-16 11:49] LABS: MANUAL DIFF FLAG NO
[2021-09-16 13:02] LABS: Basophils Percent Auto 0.5 % (0-2); Eosinophils Absolute Auto 0.7 X10*3/uL (0.0-0.4); Eosinophils Percent Auto 8.5 % (0-4); Hematocrit 35.5 % (37.0-47.0); Hemoglobin 10.3 g/dl (12.0-16.0); Imm Gran Abs Auto 0.02 X10*3/uL (0.00-0.03); Imm Gran Pct Auto 0.3 % (0.0-0.4); Lymphocytes Absolute Auto 1.6 X10*3/uL (1.2-4.9); Lymphocytes Percent Auto 21.6 % (20-40); Mean Corpuscular Hemoglobin 23.8 pg (27.0-33.0); Mean Corpuscular Volume 82.2 fL (80.0-98.0); Mean Platelet Volume 10.7 fL (9.4-12.3); Monocytes Absolute Auto 0.5 X10*3/uL (0.1-1.2); Monocytes Percent Auto 5.9 % (2-11); Neutrophils Absolute Auto 4.8 x10*3/uL (2.0-8.3); Neutrophils Percent Auto 63.2 % (45-73); Platelet Count 363 X10*3/uL (160-400); Red Blood Count 4.32 X10*6/uL (4.20-5.50); Red Cell Distribution Width 15.9 % (11.0-16.0); White Blood Count 7.6 X10*3/uL (4.8-10.8)
[2021-09-16 13:24] LABS: Alanine Aminotransferase 20 U/L (0-31); Albumin Level 4.1 g/dL (3.5-5.0); Alkaline Phosphatase 66 U/L (39-117); Anion Gap 13 (12-20); Aspartate Amino Transferase 25 U/L (5-31); Bilirubin Direct < 0.2 mg/dL (0.0-0.5); Bilirubin Total 0.4 mg/dL (0.0-1.0); Blood Urea Nitrogen 5 mg/dL (9-16); Carbon Dioxide 29 mmol/L (22-29); Chloride 103 mmol/L (96-108); Estimated Glomerular Filt Rate > 60; Glucose Random 134 mg/dL (60-115); Sodium 141 mmol/L (135-145); Total Protein 7.4 g/dL (6.5-8.0)
[2021-09-16 13:33] LABS: Troponin-I High Sensitivity < 3.5 ng/L (<3.5-17.0)
[2021-09-16 13:49] LABS: Erythrocyte Sedimentation Rate 30 MM/HR (0-20)
[2021-09-19 21:40] LABS: Immunoglobulin G Subclass 1 798 mg/dL (382-929); Immunoglobulin G Subclass 2 187 mg/dL (241-700); Immunoglobulin G Subclass 3 78 mg/dL (22-178); Immunoglobulin G Subclass 4 66.6 mg/dL (4-86); Immunoglobulin G Total 1222 mg/dL (600-1640)
[2021-09-20 09:35] LABS: SARS COV2 IgG Positive (Negative)
== END 2021-09-16 10:30 | disposition home or self-care (01) ==
LOC: HO.XRAY 10:29
PROVIDERS: PCP Internal Medicine; Visit Provider Hospitalist
DX: Z20.822 Contact with and (suspected) exposure to COVID-19 (principal); J18.9 Pneumonia, unspecified organism; J96.10 Chronic respiratory failure, unspecified whether with hypoxia or hypercapnia
CPT/HCPCS: 36415; 71046; 80048; 80076; 82784; 84484; 85025; 85652; 86769; 99202

== ENCOUNTER 2021-09-28 00:51 | Emergency (ER) | payer OTHER, SELFPAY ==
[2021-09-28 00:57] VITALS: BP 107/80; PULSE 72; RESP 18; TEMP 36.4; O2SAT 100; BMI 23.3
--- NOTE | 2021-09-28 01:23 | ED.GENADULT ---
HPI - General Adult General Chief complaint: General Medical Stated complaint: acid reflux ? difficulty breathing Time Seen by Provider: 09/28/21 01:23 Source: patient Mode of arrival: ambulatory Limitations: no limitations History of Present Illness HPI narrative: Patient with history of recent COVID on home oxygen complaining burning sensation in midsternal area try Tums at home with partial relief abdominal pain no nausea no vomiting no urinary complaint Related Data Home Medications Medication Instructions Recorded Confirmed acetaminophen 325 mg tablet 650 mg PO Q6H PRN 07/01/21 08/31/21 Previous Rx's Medication Instructions Recorded commode #1 ea 08/24/21 walker #1 ea 08/24/21 saline inhalation for nebulizer 2 - 4 ml INHALATION .every 4-6 08/31/21 hours PRN #100 ml nebulizer accessories #1 ea 09/08/21 nebulizers (Compact Compressor #1 ea 09/08/21 Nebulizer) budesonide 1 mg/2 mL suspension 0.5 mg INHALATION BID 30 Days #60 09/16/21 for nebulization ml ipratropium 0.5 mg-albuterol 3 mg 3 ml INHALATION Q4-6H PRN 30 Days 09/16/21 (2.5 mg base)/3 mL nebulization #270 ml soln mometasone 200 mcg/actuation HFA 2 puff INHALATION BID #13 g 09/19/21 aerosol inhaler (Asmanex HFA) propranolol 20 mg tablet 20 mg PO BID #60 tab 09/27/21 omeprazole 40 mg capsule,delayed 40 mg PO DAILY #30 cap 09/28/21 release sucralfate 1 gram tablet 1 g PO TID #60 tab 09/28/21 Allergies Allergy/AdvReac Type Severity Reaction Status Date / Time ketamine Allergy Intermediate Rash Verified 09/16/21 10:39 oxycodone [Percocet] AdvReac Severe vomiting Verified 09/16/21 10:39 Review of Systems Review of Systems: Yes all other systems are reviewed and are negative PMFSH Past Medical History Medical History Chronic respiratory failure COVID-19 COVID-19 Patient denies significant medical history Pneumonia 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 Surgical History H/O breast biopsy History of laparoscopic cholecystectomy History of nephrolithiasis Family History Family History Father Diabetes Hypertension Mother Diabetes Hypertension Maternal Grandfather Throat cancer Brother High cholesterol Maternal Grandmother Hypertension Social History Social History Household Members: Family Housing: House Do you presently have visiting nurse or other home services: No Unable to assess alcohol history related to: Unknown Patient Tobacco Use Status: Former Tobacco user e-Cigarette/Vaping Use: Never Used Advance Directives: No service: No Current occupational status: unemployed Physical Exam Vital Signs: Vital Signs: Last Vital Signs Temp 97.5 F 09/28/21 00:57 Pulse 72 09/28/21 00:57 Resp 18 09/28/21 00:57 BP 107/80 09/28/21 00:57 Pulse Ox 100 09/28/21 00:57 Oxygen Flow Rate 3 09/28/21 00:57 BMI result Body Mass Index 23.3 Appearance: Alert. Oriented X3. No acute distress. Neck: Normal inspection. Neck supple. CVS: Normal heart rate and rhythm. Pulses normal. Respiratory: No respiratory distress. Equal air entry bilateral, no wheezing/rales/rhonchi Abdomen: Soft , epigastric tenderness. Bowel sounds are present, no mass palpable, no CVA tenderness Skin: Skin warm and dry. Normal skin color. Normal skin turgor. Extremities: No lower extremity edema. No calf tenderness Neuro: Oriented X 3. Medical Decision Making MDM Narrative Medical decision making narrative: Patient status post cholecystectomy with epigastric pain felt better after Maalox and Prilosec discharge patient home on sucralfate and Prilosec Discharge Plan Discharge Clinical Impression: Acute gastritis Qualifiers: Gastritis type: unspecified gastritis Gastritis bleeding: without bleeding Qualified Code(s): K29.00 - Acute gastritis without bleeding Patient Disposition: Home, Self-Care Instructions: Gastritis (ED) Additional Instructions: Take medication as prescribed Follow with PCP if not better Prescriptions: New omeprazole 40 mg capsule,delayed release(DR/EC) 40 mg PO DAILY Qty: 30 RF: 0 sucralfate 1 gram tablet 1 g PO TID Qty: 60 RF: 0 No Action (DME) Compact Compressor Nebulizer Misc See Rx Instructions .Route Qty: 1 RF: 0 (DME) nebulizer accessories Kit See Rx Instructions .Route Qty: 1 RF: 0 ipratropium-albuterol 0.5 mg-3 mg(2.5 mg base)/3 mL solution for nebulization 3 ml inhalation Q4-6H PRN (Reason: wheezing) 30 Days Qty: 270 RF: 6 budesonide 1 mg/2 mL suspension for nebulization 0.5 mg inhalation BID 30 Days Qty: 60 RF: 6 Asmanex HFA 200 mcg/actuation HFA aerosol inhaler 2 puff inhalation BID Qty: 13 RF: 6 propranolol 20 mg tablet 20 mg PO BID Qty: 60 RF: 0 acetaminophen 325 mg Tablet 650 mg PO Q6H PRN (Reason: pain/fever) RF: 0 (DME) commode Kit See Rx Instructions .Route Qty: 1 RF: 0 (DME) walker Misc See Rx Instructions .Route Qty: 1 RF: 0 saline inhalation for nebulizer 2 - 4 ml inhalation .every 4-6 hours PRN (Reason: SOB, COVID INFECTION) Qty: 100 RF: 0
[2021-09-28] MEDS: Omeprazole 40 MG CAPSULE.DR PO (01:55)
[2021-09-28] MEDS: Magnesium Hydrox/Alum Hydrox 30 ML ORAL.SUSP PO (01:55)
[2021-09-28] MEDS: Lidocaine HCl Viscous 2 % 15 ML SOLUTION MUCOUS MEM (01:55)
== END 2021-09-28 02:32 | disposition home or self-care (01) ==
PROVIDERS: Emergency Provider Internal Medicine; PCP Internal Medicine
DX: K29.00 Acute gastritis without bleeding (principal); Z79.899 Other long term (current) drug therapy
CPT/HCPCS: 99283; 99284

== ENCOUNTER 2021-10-01 19:02 | Emergency (ER) | payer OTHER, SELFPAY | END 2021-10-01 19:11 | disposition left against medical advice (07) | PROVIDERS: Emergency Provider Emergency Medicine; PCP Internal Medicine | DX: F41.9 Anxiety disorder, unspecified (principal) ==

== ENCOUNTER → 2021-10-11 14:55 | Outpatient (BNVA) | payer OTHER, SELFPAY | PROVIDERS: PCP Internal Medicine; Visit Provider Hospitalist | DX: J96.01 Acute respiratory failure with hypoxia (principal); J18.9 Pneumonia, unspecified organism; U09.9 Post COVID-19 condition, unspecified | CPT/HCPCS: 99212 ==

== ENCOUNTER 2021-12-01 15:00 | Outpatient (REF) | payer OTHER, SELFPAY ==
--- NOTE | 2021-12-01 17:25 | PFT_ITS ---
INDICATION: Post COVID syndrome, pulmonary fibrosis. SPIROMETRY: The FEV1 to FVC 95% with an FEV1 of 1.36 L, which is 43% predicted; an FVC of 1.43 L, which is 37% predicted. Bronchodilators were not used due to the fact that she becomes tremulous and has had adverse effects. Maximum voluntary ventilation is 49% predicted. LUNG VOLUMES: Total lung capacity 40% predicted with an expiratory reserve volume of 28% predicted. DIFFUSION CAPACITY: DLCO 30% predicted is reassuring that diffusion capacity corrected for the alveolar volume does improve to 82% predicted. COMPARISONS: None. INTERPRETATION: There is a severe mixed obstructive restrictive ventilatory defect consistent with her severe COVID infection and significant pulmonary fibrosis. The patient also has severe diffusion impairment. Clinical correlation warranted. Gary Royal MD MR/MODL / [id number]
== END 2021-12-01 15:01 | disposition home or self-care (01) ==
LOC: HO.RESP 15:00
PROVIDERS: PCP Internal Medicine; Visit Provider Hospitalist
DX: U07.1 COVID-19 (principal)
CPT/HCPCS: 94010; 94727; 94729

== ENCOUNTER → 2021-12-09 14:59 | Outpatient (BNVA) | payer OTHER, SELFPAY | PROVIDERS: PCP Internal Medicine; Visit Provider Hospitalist | DX: J18.9 Pneumonia, unspecified organism (principal); J96.10 Chronic respiratory failure, unspecified whether with hypoxia or hypercapnia; U09.9 Post COVID-19 condition, unspecified | CPT/HCPCS: 99212 ==

== ENCOUNTER → 2022-03-28 14:06 | Outpatient (BNVA) | payer OTHER, SELFPAY | PROVIDERS: PCP Internal Medicine; Visit Provider Hospitalist | DX: U09.9 Post COVID-19 condition, unspecified (principal); J96.10 Chronic respiratory failure, unspecified whether with hypoxia or hypercapnia | CPT/HCPCS: 99212 ==

== ENCOUNTER 2022-10-18 15:16 | Outpatient (REF) | payer OTHER, SELFPAY ==
--- NOTE | ~2022-10-18 | MM_ITS ---
EXAMINATION: MM SCREENING DIGITAL BREAST TOMOSYNTHESIS, BILATERAL CLINICAL INFORMATION: Screening. Asymptomatic. Previous bilateral biopsies for fibroadenomas. The lifetime risk of breast cancer based on the Tyrer-Cuzick Model is 8.3%. COMPARISON: Mammography: August 08, 2019 and March 26, 2014 as well as some September 28, 2014 and March 12, 2014 TECHNIQUE: Digital breast tomosynthesis is performed in both the craniocaudal and mediolateral oblique views along with computer-aided detection (CAD). Synthesized 2D images are generated from the tomosynthesis. FINDINGS: There are scattered areas of fibroglandular density (ACR BI-RADS breast composition Category b). There are no new significant masses, abnormal calcifications, or other abnormalities. Stable bilateral breast densities present which were biopsy-proven be fibroadenomas. MM/MM tomosynthesis screening BI IMPRESSION: No significant changes ASSESSMENT: BI-RADS 2: Benign RECOMMENDATION: Routine annual mammography screening. This patient's information was entered into a reminder system with a target due date for their next mammogram.
== END 2022-10-18 15:17 | disposition home or self-care (01) ==
LOC: HO.MAMMO 15:16
PROVIDERS: PCP Internal Medicine; Visit Provider Internal Medicine
DX: Z12.31 Encounter for screening mammogram for malignant neoplasm of breast (principal)
CPT/HCPCS: 77063; 77067

== ENCOUNTER 2022-10-20 08:01 | Outpatient (REF) | payer OTHER, SELFPAY ==
[2022-10-20 08:17] LABS: MANUAL DIFF FLAG NO
[2022-10-20 08:37] LABS: Appearance Urine Turbid; Color Urine Yellow; Glucose Urine UA Negative (Negative); Leukocyte Esterase Urine Large (3+) (Negative); Nitrite Urine Positive (Negative); Specific Gravity - Urine 1.015 (1.005-1.025); UMIC TRIGGER UACC YES; Urine Blood Moderate (2+) (Negative); Urine Ketones Negative (Negative); Urine Protein 30 (1+) mg/dL (Neg-Trace)
[2022-10-20 08:37] LABS: Basophils Absolute Auto 0.1 X10*3/uL (0.0-0.2); Basophils Percent Auto 0.6 % (0-2); Eosinophils Absolute Auto 0.4 X10*3/uL (0.0-0.4); Eosinophils Percent Auto 5.1 % (0-4); Hemoglobin 9.5 g/dl (12.0-16.0); Imm Gran Abs Auto 0.02 X10*3/uL (0.00-0.03); Imm Gran Pct Auto 0.2 % (0.0-0.4); Lymphocytes Absolute Auto 2.3 X10*3/uL (1.2-4.9); Lymphocytes Percent Auto 27.4 % (20-40); Mean Corpuscular HGB Conc 28.8 g/dl (31.0-35.0); Mean Corpuscular Hemoglobin 20.9 pg (27.0-33.0); Mean Corpuscular Volume 72.7 fL (80.0-98.0); Mean Platelet Volume 10.8 fL (9.4-12.3); Monocytes Absolute Auto 0.5 X10*3/uL (0.1-1.2); Monocytes Percent Auto 5.9 % (2-11); Neutrophils Absolute Auto 5.1 x10*3/uL (2.0-8.3); Neutrophils Percent Auto 60.8 % (45-73); Platelet Count 269 X10*3/uL (160-400); Red Blood Count 4.54 X10*6/uL (4.20-5.50); Red Cell Distribution Width 17.5 % (11.0-16.0); White Blood Count 8.4 X10*3/uL (4.8-10.8)
[2022-10-20 08:40] LABS: Bacteria Urine 2+ (None Seen); Hyaline Casts Urine 0-2 /LPF (0-2); RBC Urine >20 /HPF (0-2); Squamous Epithelial Cell Urine 0-2 /HPF (0-2); UACC Culture Trigger YES; WBC Urine >50 /HPF (0-5)
[2022-10-20 09:08] LABS: Alanine Aminotransferase 15 U/L (0-31); Albumin Level 3.7 g/dL (3.5-5.0); Alkaline Phosphatase 70 U/L (39-117); Anion Gap 9 (12-20); Aspartate Amino Transferase 14 U/L (5-31); Bilirubin Total 0.2 mg/dL (0.0-1.0); Blood Urea Nitrogen 11 mg/dL (9-16); Calcium 9.1 mg/dL (8.4-10.2); Carbon Dioxide 26 mmol/L (22-29); Chloride 108 mmol/L (96-108); Cholesterol 176 mg/dL; Estimated Glomerular Filt Rate > 60; Glucose Fasting 143 mg/dL (60-99); HDL Cholesterol 46 mg/dL; LDL Cholesterol Calculated 102 mg/dl; Potassium 4.2 mmol/L (3.3-5.1); Sodium 139 mmol/L (135-145); Triglycerides 141 mg/dL
[2022-10-20 09:30] LABS: TSH reflex Free T4 < 0.01 uIU/mL (0.32-4.0); Vitamin D 25-OH Total 18.2 ng/mL (>30)
[2022-10-20 12:24] LABS: Free T4 (Free Thyroxine) 1.23 ng/dL (0.71-1.85)
== END 2022-10-20 08:02 | disposition home or self-care (01) ==
LOC: HO.LAB 08:01
PROVIDERS: PCP Internal Medicine; Visit Provider Internal Medicine
DX: Z00.00 Encounter for general adult medical examination without abnormal findings (principal); R30.0 Dysuria; E55.9 Vitamin D deficiency, unspecified; E78.00 Pure hypercholesterolemia, unspecified
CPT/HCPCS: 36415; 80053; 80061; 81001; 82306; 84439; 84443; 85025; 87086; 87088; 87186

== ENCOUNTER 2023-01-05 12:53 | Outpatient (REF) | payer OTHER, SELFPAY ==
--- NOTE | 2023-01-05 17:24 | PFT_ITS ---
Forced vital capacity 53%, FEV1 59%, FEV1/FVC ratio is 92. [id number] 93% and MVV 80%. Bronchodilator challenge was not given because patient declined to have the treatment, due to previous history of side effects. LUNG VOLUMES: Total lung capacity 54%. Residual volume 50%. Diffusion capacity 74%. CONCLUSION: 1. Moderately severe restrictive pulmonary disorder. 2. No obstructive airway disorder. 3. Bronchodilator challenge was not given. MD FCO Briones/MODL / [id number]
== END 2023-01-05 12:54 | disposition home or self-care (01) ==
LOC: HO.RESP 12:53
PROVIDERS: PCP Internal Medicine; Visit Provider Hospitalist
DX: U09.9 Post COVID-19 condition, unspecified (principal)
CPT/HCPCS: 94010; 94727; 94729

== ENCOUNTER → 2023-02-06 13:41 | Outpatient (BNVA) | payer OTHER, SELFPAY | PROVIDERS: PCP Internal Medicine; Visit Provider Hospitalist | DX: J96.10 Chronic respiratory failure, unspecified whether with hypoxia or hypercapnia (principal); J84.9 Interstitial pulmonary disease, unspecified; J98.4 Other disorders of lung | CPT/HCPCS: 99212 ==

== ENCOUNTER 2023-05-18 13:47 | Outpatient (AMB) | payer OTHER, SELFPAY ==
[2023-05-18 13:53] VITALS: BP 110/78; PULSE 75; O2SAT 95; BMI 27.3
--- NOTE | 2023-05-18 13:53 | A.OFFPC_ITS ---
Vital Signs 05/18/23 13:53 Height 5 ft 6 in Weight 169 lb 6 oz BMI 27.3 BP 110/78 Blood Pressure Location Lt brachial Position Sitting Pulse 75 Pulse Source Pulse Oximeter Pulse Oximetry (%) 95 Oxygen Delivery Method Room Air Intake Visit Reasons: 6mth f/u Specification Consultant Required: No Accompanied by: Self / Same As Patient Allergies ketamine Allergy (Intermediate, Verified 05/18/23 14:21) Rash oxycodone [Percocet] Adverse Reaction (Severe, Verified 05/18/23 14:21) vomiting Medication List - Last Reconciled 05/18/23 by Nile Denny MD acetaminophen 650 mg PO Q6H PRN budesonide 0.5 mg inhalation BID 30 days bupropion HCl (Wellbutrin XL) 150 mg PO QAM 30 days ferrous sulfate 325 mg PO DAILY 30 days ipratropium-albuterol 0.5 mg-3 mg(2.5 mg base)/3 mL 3 mL inhalation Q4-6H PRN 30 days lorazepam 1 mg PO BEDTIME PRN 30 days mometasone 200 mcg/actuation (Asmanex HFA) 2 puffs inhalation BID nebulizers (Compact Compressor Nebulizer) As directed omeprazole 40 mg PO DAILY Tobacco use date assessed: 05/18/23 Dental Screening Dental Screen Date: 05/18/23 Did you have a dental visit in the last 12 months?: Yes Did you have a dental problem in the last 6 months where you did not have access to dental care?: No Was dental information given to patient?: Patient has dentist HPI 6mth f/u HPI Details Patient comes in today for her follow up visit States that she feels okay She denies any headaches or dizziness Denies any chest pains, still has some LEARY but states that her breathing has improved a lot this past year and she no longer needs to use her inhalers or check her blood oxygen level regularly Was seen by pulmonary for follow up a couple of months ago and sent for a follow up chest x-ray, which patient has not been able to get done yet No nausea/vomiting, no abdominal pain No change in bowel habits noted States that she would like to get a referral to [facility] so she can get back on traj with her yearly ob gyn physician assistant exam and pap smear; has not had these done in a few years now PFSH Medical History (Updated 05/20/23 @ 21:33 by Nile Denny MD) Anxiety Chronic respiratory failure Chronic restrictive lung disease COVID-19 GERD without esophagitis ILD (interstitial lung disease) Overweight (BMI 25.0-29.9) 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 Surgical History H/O breast biopsy History of laparoscopic cholecystectomy History of nephrolithiasis Family History Father Diabetes Hypertension Mother Diabetes Hypertension Maternal Grandfather Throat cancer Brother High cholesterol Maternal Grandmother Hypertension Social History Household Members: Spouse and Children Household Members Other:: Mother Housing: House Do you presently have visiting nurse or other home services: No Unable to assess alcohol history related to: Unknown Patient Tobacco Use Status: Former Tobacco user e-Cigarette/Vaping Use: Never Used Second Hand Smoke Exposure: No service: No Current occupational status: unemployed Cognitive needs: No Hearing needs: No Vision needs: No Questionnaire PHQ-9 Over the last 2 weeks, how often have you been bothered by any of the following problems? 1. Little interest or pleasure in doing things: not at all 2. Feeling down, depressed, or hopeless: not at all 3. Trouble falling or staying asleep, or sleeping too much: not at all 4. Feeling tired or having little energy: not at all 5. Poor appetite or overeating: not at all 6. Feeling bad about yourself - or that you are a failure or have let yourself or your family down: not at all 7. Trouble concentrating on things, such as reading the newspaper or watching television: not at all 8. Moving or speaking so slowly that other people could have noticed. Or the opposite - being so fidgety or restless that you have been moving around a lot more than usual: not at all 9. Thoughts that you would be better off or of hurting yourself in some way: not at all Total score: 0 Depression Screening Interpretation: Negative 13102 - PHQ-9 Billing: Yes Source: Developed by Drs. Uvaldo Hardy, Dewey Tran and colleagues, with an educational perry from [employer]. Thrive Questionnaire Date Thrive assessed: 05/18/23 I am a: Patient What is your living situation today?: I have a steady place to live Within the past 12 months, did the food you bought not last and you didn't have the money to get more?: Never true Within the past 12 months, did you worry whether your food would run out before you got money to buy more?: Never true Do you have trouble paying for medicines?: No Do you have trouble getting transportation to medical appointments?: No Do you have trouble paying your heating and electricity bill?: No Do you have trouble taking care of your child, family member or friend?: No Do you have trouble with day-to-day activities such as bathing, preparing meals, shopping, managing finances, etc.?: No Are you currently unemployed and looking for a job?: No Are you interested in more education?: No Please select the resources that you would like help with: None Currently or been in a relationship where the following occur: no concerns reported AUDIT C Alcohol Use Questionnaire (AUDIT-C) 1. How often do you have a drink containing alcohol?: Never 3. How often do you have six or more drinks on one occasion?: Never Total Score: 0 Score Reviewed/Action Taken: Yes NANCY-7 AMB Questionnaire NANCY-7 Date NANCY - 7 assessed: 05/18/23 Feeling nervous, anxious, or on edge: 0 = Not at all Not being able to stop or control worryin = Not at all Worrying too much about different things: 0 = Not at all Trouble relaxin = Not at all Being so restless that it is hard to sit still: 0 = Not at all Becoming easily annoyed or irritable: 0 = Not at all Feeling afraid as if something awful might happen: 0 = Not at all Total NANCY-7 score (0-4 normal; 5-9 mild; 10-14 moderate; 15-21 severe): 0 Source: Developed by Drs. Uvaldo Hardy, Dewey Tran and colleagues, with an educational perry from [employer]. Review of Systems Const Denies chills, Denies fatigue, Denies fever(s) and Denies headache(s) ENT Denies dysphagia, Denies dizziness, Denies otalgia, Denies headache(s), Denies odynophagia and Denies sore throat Card Denies chest pain, Denies palpitations and Reports dyspnea on exertion (mild) Resp Denies chest congestion, Denies cough, Reports dyspnea on exertion (mild) and Denies wheezing GI Denies abdominal pain, Denies constipation, Denies dysphagia, Denies heartburn, Denies diarrhea, Denies nausea, Denies odynophagia and Denies vomiting Denies difficulty voiding, Denies nocturia and Denies dysuria Neuro Denies dizziness and Denies headache(s) Endo Denies fatigue and Denies palpitations Aller/Immun Denies wheezing Physical exam (Primary Care) Vital Signs: Last Vital Signs Pulse 75 05/18/23 13:53 BP 110/78 05/18/23 13:53 Pulse Ox 95 05/18/23 13:53 Oxygen Delivery Method Room Air 05/18/23 13:53 BMI result Body Mass Index 27.3 Tobacco/Smoking Status: Tobacco use Status Tobacco use date assessed 05/18/23 05/18/23 14:04 Patient Tobacco Use Status Former Tobacco user 05/18/23 14:04 e-Cigarette/Vaping Use Never Used 05/18/23 14:04 PHQ-9: PHQ-9 Score PHQ-9: Total score 0 05/20/23 18:26 Depression Screening Interpretation: Negative Thrive Assessment: Date of Thrive Assessment Date Thrive assessed 05/18/23 05/18/23 14:04 Currently or been in a relationship where the following occur: no concerns reported Const General: no acute distress and alert HENMT Ears: TM's normal bilaterally and EAC's normal Throat: Yes posterior oropharynx normal and Yes tonsils normal (no TP congestion) Neck Neck: Yes no lymphadenopathy and Yes supple Resp Auscultation: clear to auscultation bilaterally, no rales and no wheezes Cardio Rate: regular rate Rhythm: regular rhythm Heart sounds: no murmurs GI Palpation (GI): Soft to palpation and nontender Auscultation: normal bowel sounds Skin General skin exam: no rashes or lesions noted Extrem General: Yes no clubbing, cyanosis or edema Results Reviewed Results Reviewed: Laboratory Tests 10/20/22 10/20/22 10/20/22 08:14 08:14 08:15 WBC 8.4 Hgb 9.5 L Hct 33.0 L Plt Count 269 D Sodium 139 Potassium 4.2 Creatinine 0.73 Estimated GFR > 60 Fasting Glucose 143 H Calcium 9.1 D AST 14 ALT 15 Triglycerides 141 Cholesterol 176 LDL Cholesterol, Calc 102 HDL Cholesterol 46 25-OH Vitamin D Total 18.2 TSH < 0.01 L Free T4 1.23 Ur Specific [place] 1.015 Urine Protein 30 (1+) H Urine Glucose (UA) Negative Urine Blood Moderate (2+) H Assessment and Plan Assessment & Plan (1) Chronic restrictive lung disease: Code(s): J98.4 - Other disorders of lung Plan: Had severe COVID pneumonia in June 2021 but she appears to have recovered completely now from its effects Repeat PFT done earlier this year still showed limited capacity and restrictive lung pattern Continue Asmanex HFA 200 mcg 2 inhalations BID and uses her nebulizer as needed Will send her for repeat chest x-rays for follow up Follow up with pulmonary as scheduled (2) Anemia: Code(s): D64.9 - Anemia, unspecified Qualifiers: Anemia type: iron deficiency Iron deficiency anemia type: unspecified iron deficiency Qualified Code(s): D50.9 - Iron deficiency anemia, unspecified Plan: Continue Ferrous Sulfate 325 mg QD She was still anemia on her labs done back in October 2022 Will send her for repeat labs as well as repeat CBC for follow up (3) Tachycardia: Code(s): R00.0 - Tachycardia, unspecified Plan: Appears resolved Was on Propranolol 20 mg BID PRN previously but has not taken this in the past few months (4) GERD without esophagitis: Code(s): K21.9 - Gastro-esophageal reflux disease without esophagitis Plan: Dietary restrictions reinforced Continue Omeprazole 40 mg QD (5) Anxiety: Code(s): F41.9 - Anxiety disorder, unspecified Plan: Continue Lorazepam 1 mg QD / HS PRN and Wellbutrin XL 150 mg QD (6) Overweight (BMI 25.0-29.9): Code(s): E66.3 - Overweight Plan: Reinforced diet/exercise as tolerated/lose weight (7) Cervical cancer screening: Code(s): Z12.4 - Encounter for screening for malignant neoplasm of cervix Plan: Will refer to [facility] for her annual pap smear and ob gyn physician assistant exam Plan To return in early October 2023 for her next annual physical examination Orders: Orders XR chest 2V 05/18/23 J84.9 - Interstitial pulmonary disease, unspecified Complete Blood Count Auto Diff 05/18/23 D64.9 - Anemia, unspecified Comprehensive Met. Panel 05/18/23 D64.9 - Anemia, unspecified, J84.9 - Interstitial pulmonary disease, unspecified IRON PROFILE 05/18/23 D50.9 - Iron deficiency anemia, unspecified, D64.9 - Anemia, unspecified, J84.9 - Interstitial pulmonary disease, unspecified TSH reflex Free T4 05/18/23 D64.9 - Anemia, unspecified, E78.00 - Pure hypercholesterolemia, unspecified, J84.9 - Interstitial pulmonary disease, unspecified Vitamin D 25-OH Total 05/18/23 D64.9 - Anemia, unspecified, E55.9 - Vitamin D deficiency, unspecified, J84.9 - Interstitial pulmonary disease, unspecified UA CC w/rflx Micro + Cult 05/18/23 D64.9 - Anemia, unspecified, J84.9 - Interstitial pulmonary disease, unspecified, R30.0 - Dysuria Referrals SUPERVISING FILM OR VIDEOTAPE EDITOR Referral Z12.4 - Encounter for screening for malignant neoplasm of cervix Coding Level of Care Code Est Pt Level 4 (10003) Diagnoses Chronic restrictive lung disease J98.4 Anemia D50.9 Anemia type: iron deficiency Iron deficiency anemia type: unspecified iron deficiency Tachycardia R00.0 GERD without esophagitis K21.9 Anxiety F41.9 Overweight (BMI 25.0-29.9) E66.3 Cervical cancer screening Z12.4
== END 2023-05-18 14:39 | disposition home or self-care (01) ==
PROVIDERS: PCP Internal Medicine; Visit Provider Internal Medicine
DX: K21.9 Gastro-esophageal reflux disease without esophagitis (principal); F41.9 Anxiety disorder, unspecified; J98.4 Other disorders of lung; D50.9 Iron deficiency anemia, unspecified; R00.0 Tachycardia, unspecified; E66.3 Overweight
CPT/HCPCS: 99214

== ENCOUNTER 2023-06-08 08:45 | Outpatient (REF) | payer OTHER, SELFPAY ==
--- NOTE | ~2023-06-08 | XR_ITS ---
EXAMINATION: XR CHEST 2 VIEWS CLINICAL INFORMATION: Interstitial pulmonary disease. COMPARISON: CTA chest dated 08/08/2021; prior chest radiographs, most recently 07/31/2021. TECHNIQUE: Frontal and lateral views of the chest were obtained. FINDINGS: The heart, great vessels, pulmonary vasculature and mediastinum are normal. The lungs show no focal infiltrate, effusion or pneumothorax. There is no acute osseous abnormality. There are right upper quadrant surgical clips. XR/XR chest 2V IMPRESSION: No active cardiopulmonary disease.
[2023-06-08 08:58] LABS: MANUAL DIFF FLAG NO
[2023-06-08 09:48] LABS: Appearance Urine Turbid; Color Urine Yellow; Glucose Urine UA Negative (Negative); Leukocyte Esterase Urine Large (3+) (Negative); Nitrite Urine Positive (Negative); PH 5.5 (5.0-9.0); UMIC TRIGGER UACC YES; Urine Blood Large (3+) (Negative); Urine Ketones Negative (Negative); Urine Protein 100 (2+) mg/dL (Neg-Trace)
[2023-06-08 09:53] LABS: Bacteria Urine 2+ (None Seen); Hyaline Casts Urine 0-2 /LPF (0-2); RBC Urine >20 /HPF (0-2); Squamous Epithelial Cell Urine 0-2 /HPF (0-2); UACC Culture Trigger YES; WBC Urine >50 /HPF (0-5)
[2023-06-08 10:01] LABS: Basophils Absolute Auto 0.1 X10*3/uL (0.0-0.2); Basophils Percent Auto 0.6 % (0-2); Eosinophils Absolute Auto 0.4 X10*3/uL (0.0-0.4); Eosinophils Percent Auto 4.9 % (0-4); Hematocrit 41.9 % (37.0-47.0); Hemoglobin 13.5 g/dl (12.0-16.0); Imm Gran Abs Auto 0.02 X10*3/uL (0.00-0.03); Imm Gran Pct Auto 0.3 % (0.0-0.4); Lymphocytes Absolute Auto 2.3 X10*3/uL (1.2-4.9); Lymphocytes Percent Auto 28.6 % (20-40); Mean Corpuscular HGB Conc 32.2 g/dl (31.0-35.0); Mean Corpuscular Hemoglobin 27.6 pg (27.0-33.0); Mean Corpuscular Volume 85.7 fL (80.0-98.0); Mean Platelet Volume 10.1 fL (9.4-12.3); Monocytes Absolute Auto 0.4 X10*3/uL (0.1-1.2); Monocytes Percent Auto 5.3 % (2-11); Neutrophils Absolute Auto 4.8 x10*3/uL (2.0-8.3); Neutrophils Percent Auto 60.3 % (45-73); Platelet Count 269 X10*3/uL (160-400); Red Blood Count 4.89 X10*6/uL (4.20-5.50); Red Cell Distribution Width 13.6 % (11.0-16.0); White Blood Count 7.9 X10*3/uL (4.8-10.8)
[2023-06-08 10:52] LABS: Alanine Aminotransferase 23 U/L (0-31); Albumin Level 3.7 g/dL (3.5-5.0); Alkaline Phosphatase 88 U/L (39-117); Anion Gap 14 (12-20); Aspartate Amino Transferase 22 U/L (5-31); Bilirubin Total 0.3 mg/dL (0.0-1.0); Blood Urea Nitrogen 10 mg/dL (9-16); Calcium 9.1 mg/dL (8.4-10.2); Carbon Dioxide 23 mmol/L (22-29); Chloride 105 mmol/L (96-108); Estimated Glomerular Filt Rate > 60; Glucose Random 135 mg/dL (60-115); Iron 28 mcg/dL (30-160); Percent Iron Saturation 10 % (15-50); Potassium 3.9 mmol/L (3.3-5.1); Sodium 138 mmol/L (135-145); Total Iron Binding Capacity 292 mcg/dL (228-428); Total Protein 7.2 g/dL (6.5-8.0); Unsaturated Iron Binding 264 ug/dL
[2023-06-08 11:32] LABS: TSH reflex Free T4 < 0.01 uIU/mL (0.32-4.0); Vitamin D 25-OH Total 21.9 ng/mL (>30)
[2023-06-08 12:25] LABS: Free T4 (Free Thyroxine) 0.98 ng/dL (0.71-1.85)
== END 2023-06-08 08:46 | disposition home or self-care (01) ==
LOC: HO.LAB 08:45
PROVIDERS: PCP Internal Medicine; Visit Provider Internal Medicine
DX: J84.9 Interstitial pulmonary disease, unspecified (principal); E78.00 Pure hypercholesterolemia, unspecified; E55.9 Vitamin D deficiency, unspecified; D50.9 Iron deficiency anemia, unspecified
CPT/HCPCS: 36415; 71046; 80053; 81001; 82306; 83540; 84439; 84443; 85025; 87086; 87088; 87186

== ENCOUNTER 2023-10-05 14:54 | Outpatient (AMB) | payer OTHER, SELFPAY ==
[2023-10-05 14:57] VITALS: BP 110/76; PULSE 77; O2SAT 98; BMI 28.6
--- NOTE | 2023-10-05 14:57 | A.OFFPC_ITS ---
Vital Signs 10/05/23 14:57 Height 5 ft 6 in Weight 177 lb BMI 28.6 BP 110/76 Blood Pressure Location Lt brachial Position Sitting Pulse 77 Pulse Source Pulse Oximeter Pulse Oximetry (%) 98 Oxygen Delivery Method Room Air Intake Visit Reasons: Annual exam Sealant Mixer Required: No Senior Cytotechnologist: Present Accompanied by: Allergies ketamine Allergy (Intermediate, Verified 10/05/23 15:24) Rash oxycodone [Percocet] Adverse Reaction (Severe, Verified 10/05/23 15:24) vomiting Medication List - Last Reconciled 10/05/23 by Nile Denny MD acetaminophen 650 mg PO Q6H PRN budesonide 0.5 mg inhalation BID 30 days bupropion HCl (Wellbutrin XL) 150 mg PO QAM 30 days ferrous sulfate 325 mg PO DAILY 30 days ipratropium-albuterol 0.5 mg-3 mg(2.5 mg base)/3 mL 3 mL inhalation Q4-6H PRN 30 days lorazepam 1 mg PO BEDTIME PRN 30 days mometasone 200 mcg/actuation (Asmanex HFA) 2 puffs inhalation BID nebulizers (Compact Compressor Nebulizer) As directed omeprazole 40 mg PO DAILY Tobacco use date assessed: 05/18/23 Dental Screening Dental Screen Date: 10/05/23 Did you have a dental visit in the last 12 months?: Yes Did you have a dental problem in the last 6 months where you did not have access to dental care?: No Was dental information given to patient?: Patient has dentist HPI Annual exam HPI Details Patient comes in today for her annual physical examination States that she currently feels okay aside from some mild dysuria and urinary frequency for the past 2 to 3 days She denies any fever, headaches or dizziness Denies any chest pains, no SOB No nausea/vomiting, no abdominal pain No change in bowel habits noted Had her mammogram done back in October 2022 and she is scheduled to have this repeated next month on 10/24/2023 States that she was [facility] a couple of months ago but had to cancel her appt then due to changes with her insurance - states that this has been settled recently and she will be calling them back to reschedule her appt [facility] Medical History (Updated 10/05/23 @ 16:12 by Nile Denny MD) Vitamin D deficiency Overweight (BMI 25.0-29.9) Chronic restrictive lung disease ILD (interstitial lung disease) GERD without esophagitis COVID-19 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 Chronic respiratory failure Pneumonia Anxiety Surgical History History of nephrolithiasis H/O breast biopsy History of laparoscopic cholecystectomy Family History Father Diabetes Hypertension Mother Diabetes Hypertension Maternal Grandfather Throat cancer Brother High cholesterol Maternal Grandmother Hypertension Social History Household Members: Spouse and Children Household Members Other:: Mother Housing: House Do you presently have visiting nurse or other home services: No Unable to assess alcohol history related to: Unknown Patient Tobacco Use Status: Former Tobacco user e-Cigarette/Vaping Use: Never Used Second Hand Smoke Exposure: No service: No Current occupational status: unemployed Cognitive needs: No Hearing needs: No Vision needs: No Questionnaire Thrive Questionnaire Date Thrive assessed: 05/18/23 NANCY-7 AMB Questionnaire NANCY-7 Date NANCY - 7 assessed: 05/18/23 Source: Developed by Drs. Uvaldo Hardy, Teri Davis, Dewey Garay and colleagues, with an educational perry from [employer]. Review of Systems Const Denies chills, Denies fatigue, Denies fever(s), Denies headache(s) and Denies malaise Eyes Denies blurry vision, Denies change in vision, Denies irritation and Denies itchy eyes ENT Denies dysphagia, Denies dizziness, Denies otalgia, Denies headache(s), Denies nasal congestion, Denies neck pain, Denies odynophagia, Denies sinus pain and Denies sore throat Card Denies chest pain, Denies rapid heart rate, Denies irregular heart rhythm, Denies palpitations and Denies dyspnea Resp Denies chest congestion, Denies cough, Denies dyspnea and Denies wheezing GI Denies abdominal pain, Denies bloating, Denies constipation, Denies dysphagia, Denies heartburn, Denies diarrhea, Denies nausea, Denies odynophagia and Denies vomiting Denies hematuria, Denies urinary frequency, Reports nocturia (mild), Reports dysuria (mild), Denies urinary incontinence, Denies urinary urgency and Denies vaginal discharge Musc Denies back pain, Denies arthralgias, Denies joint swelling, Denies muscle weakness and Denies neck pain Skin/Breast Denies breast pain, Denies breast mass, Denies change in pigmentation, Denies lesions, Denies rash and Denies unusual bruising Neuro Denies dizziness, Denies headache(s) and Denies paresthesias Psych Denies anxiety and Denies depression Endo Denies fatigue and Denies palpitations Guru/Lymph Denies easy bruising Aller/Immun Denies itchy eyes and Denies wheezing Physical exam (Primary Care) Vital Signs: Last Vital Signs Pulse 77 10/05/23 14:57 BP 110/76 10/05/23 14:57 Pulse Ox 98 10/05/23 14:57 Oxygen Delivery Method Room Air 10/05/23 14:57 BMI result Body Mass Index 28.6 Tobacco/Smoking Status: Tobacco use Status Tobacco use date assessed 05/18/23 10/05/23 15:04 Patient Tobacco Use Status Former Tobacco user 10/05/23 15:04 e-Cigarette/Vaping Use Never Used 10/05/23 15:04 Thrive Assessment: Date of Thrive Assessment Date Thrive assessed 05/18/23 10/05/23 15:04 Const General: no acute distress, alert and awake Orientation/consciousness: patient oriented x3 HENMT Head: Yes normocephalic and Yes atraumatic Ears: external ears normal, TM's normal bilaterally and EAC's normal General nose exam: No nasal discharge present Face and sinus: Yes normal facial exam and Yes sinuses nontender Teeth and gingiva: dentition normal Throat: Yes posterior oropharynx normal and Yes tonsils normal (no TP congestion) Eyes Eyelids: Yes eyelids normal Conjunctivae: conjunctivae normal Pupils: Equal, round and reactive pupils present EOM: EOMs intact bilaterally Neck Neck: Yes no lymphadenopathy and Yes supple Thyroid: Thyroid normal Resp Auscultation: clear to auscultation bilaterally, no rales and no wheezes Cardio Rate: regular rate Rhythm: regular rhythm Heart sounds: no murmurs GI Palpation (GI): Soft to palpation, nontender and No hepatosplenomegaly present Auscultation: normal bowel sounds General: Yes no CVA tenderness Back/Spine/Pelvis Back: no CVA tenderness Thoracic/Lumbar Spine: thoracic and lumbar spine normal to inspection Skin Lesions: no lesions Rashes: no rashes Neuro General: patient oriented x3, moves all extremities, no focal motor deficits and CN's II-XI intact bilaterally Cranial nerves: Yes Equal, round and reactive pupils present Cognition (Neuro): normal cognition Gait exam (Neuro): Normal gait present Extrem General: Yes no clubbing, cyanosis or edema Results AMB Urinalysis, Automated UA Leukoctes 500 Maria Eugenia/uL Last Edit by Lakshmi Leblacn on 10/05/23 15:28 UA Nitrite Positive Last Edit by Lakshmi Leblanc on 10/05/23 15:28 UA Urobilinogen 0.2 mg/dL Last Edit by Lakshmi Leblanc on 10/05/23 15:28 UA Protein 100 mg/dL Last Edit by Lakshmi Leblanc on 10/05/23 15:28 UA pH 5.0 Last Edit by Lakshmi Leblanc on 10/05/23 15:28 UA Blood 0 Geronimo/uL Last Edit by Lakshmi Leblanc on 10/05/23 15:28 UA Specific [place] 1.025 Last Edit by Lakshmi Leblanc on 10/05/23 15:28 UA Ketone Negative Last Edit by Lakshmi Leblanc on 10/05/23 15:28 UA Bilirubin 0 mg/dL Last Edit by Lakshmi Leblanc on 10/05/23 15:28 UA Glucose 0 mg/dL Last Edit by Lakshmi Leblanc on 10/05/23 15:28 Results Reviewed Results Reviewed: Laboratory Last Values Urine pH (Auto) 5.0 10/05/23 15:24 Specific [place] (Auto) 1.025 10/05/23 15:24 Urine Protein (Auto) 100 mg/dL 10/05/23 15:24 Glucose (UA)(Auto) 0 mg/dL 10/05/23 15:24 Urine Ketones (Auto) Negative 10/05/23 15:24 Urine Blood (Auto) 0 Geronimo/uL 10/05/23 15:24 Urine Nitrite (Auto) Positive 10/05/23 15:24 Urine Bilirubin (Auto) 0 mg/dL 10/05/23 15:24 Urine Urobilinogen (Auto) 0.2 mg/dL 10/05/23 15:24 Leukocyte Esterase (Auto) 500 Maria Eugenia/uL 10/05/23 15:24 Laboratory Tests 06/08/23 06/08/23 06/08/23 08:53 08:53 08:57 WBC 7.9 Hgb 13.5 D Hct 41.9 D Plt Count 269 Sodium 138 Potassium 3.9 Creatinine 0.69 Estimated GFR > 60 Random Glucose Calcium Iron 28 L TIBC 292 % Saturation 10 L AST 22 ALT 23 25-OH Vitamin D Total 21.9 TSH < 0.01 L Free T4 0.98 Ur Specific [place] 1.010 Urine Protein 100 (2+) H Urine Glucose (UA) Negative Urine Blood Large (3+) H Urine Nitrite Positive H Ur Leukocyte Esterase Large (3+) H 06/08/23 06/08/23 08:57 08:57 WBC Hgb Hct Plt Count Sodium Potassium Creatinine Estimated GFR Random Glucose 135 H Calcium 9.1 Iron TIBC % Saturation AST ALT 25-OH Vitamin D Total TSH Free T4 Ur Specific [place] Urine Protein Urine Glucose (UA) Urine Blood Urine Nitrite Ur Leukocyte Esterase Assessment and Plan Assessment & Plan (1) Annual physical exam: Code(s): Z00.00 - Encounter for general adult medical examination without abnormal findings Plan: Results of her labs done back in June 2023 reviewed and discussed with patient She is up-to-date with her annual mammogram and is scheduled for her repeat mammogram next month [facility] Will send her for some repeat labs PORTIA for follow up (2) Chronic restrictive lung disease: Code(s): J98.4 - Other disorders of lung Plan: Had severe COVID pneumonia in June 2021 but she appears to have recovered completely now from its effects Repeat PFT done earlier this year still showed limited capacity and restrictive lung pattern Continue Asmanex HFA 200 mcg 2 inhalations BID and uses her nebulizer as needed Repeat chest x-rays done back in June 2023 came out normal Follow up with pulmonary as scheduled (3) Anemia: Code(s): D64.9 - Anemia, unspecified Qualifiers: Anemia type: iron deficiency Iron deficiency anemia type: unspecified iron deficiency Qualified Code(s): D50.9 - Iron deficiency anemia, unspecified Plan: Corrected - continue Ferrous Sulfate 325 mg QD She was still anemic on her labs back in October 2022 but follow up labs in June 2023 revealed normal H/H Will recheck her CBC for follow up (4) Tachycardia: Code(s): R00.0 - Tachycardia, unspecified Plan: Appears resolved - her heart rate is currently normal Was on Propranolol 20 mg BID PRN previously but has not taken this in the past few months (5) GERD without esophagitis: Code(s): K21.9 - Gastro-esophageal reflux disease without esophagitis Plan: Dietary restrictions reinforced Continue Omeprazole 40 mg QD (6) Vitamin D deficiency: Code(s): E55.9 - Vitamin D deficiency, unspecified Plan: She is advised that her Vitamin D level was low on her labs done in June 2023 and she should start taking supplements to help correct this Will start her on Vitamin D3 2000 units QD (7) Low TSH level: Code(s): R79.89 - Other specified abnormal findings of blood chemistry Plan: Her TSH was suppressed but free T4 was normal on her labs back in June 2023 Patient is currently clinically euthyroid Will recheck her TFTs for follow up (8) Impaired fasting glucose: Code(s): R73.01 - Impaired fasting glucose Plan: Advised that her serum glucose was also elevated back in June 2023 - will recheck this and also check a HgbA1c level for follow up (9) Urinary tract infection: Code(s): N39.0 - Urinary tract infection, site not specified Qualifiers: Urinary tract infection type: site unspecified Hematuria presence: with out hematuria Qualified Code(s): N39.0 - Urinary tract infection, site not specified Plan: In-office urinalysis done today showed findings suggestive of a mild UTI As she has reported experiencing some symptoms of dysuria, will go ahead and start her on Macrobid 100 mg BID x 7 days She is encouraged to increase her oral fluid intake at least for the next few days (10) Anxiety: Code(s): F41.9 - Anxiety disorder, unspecified Plan: Continue Lorazepam 1 mg QD / HS PRN and Wellbutrin XL 150 mg QD (11) Overweight (BMI 25.0-29.9): Code(s): E66.3 - Overweight Plan: Reinforced diet/exercise as tolerated/lose weight Plan Follow up in 6 months Orders: Orders Comprehensive [place]. Panel Fast Today E78.00 - Pure hypercholesterolemia, unspecified, Z00.00 - Encounter for general adult medical examination without abnormal findings Hemoglobin A1c Today R73.01 - Impaired fasting glucose, Z00.00 - Encounter for general adult medical examination without abnormal findings Vitamin D 25-OH Total Today E55.9 - Vitamin D deficiency, unspecified AMB Urinalysis Automated Today M54.50 - Low back pain, unspecified Complete Blood Count Auto Diff Today Z00.00 - Encounter for general adult medical examination without abnormal findings Lipid Panel Today E78.00 - Pure hypercholesterolemia, unspecified, Z00.00 - Encounter for general adult medical examination without abnormal findings Thyroid Stimulating Hormone Today R79.89 - Other specified abnormal findings of blood chemistry Free T4 (Free Thyroxine) Today R79.89 - Other specified abnormal findings of blood chemistry Medications: New cholecalciferol (vitamin D3) 50 mcg PO DAILY 90 days 90 caps 3RF E55.9 - Vi tamin D deficiency, unspecified nitrofurantoin monohyd/m-cryst 100 mg (Macrobid) must administer with a meal/food 100 mg PO Q12H 7 days 14 caps 0RF Coding Level of Care Code Est Pt Prev Care 40-64y(77996) Diagnoses Annual physical exam Z00.00 Chronic restrictive lung disease J98.4 Iron deficiency anemia, unspecified iron deficiency anemia type D50.9 Anemia type: iron deficiency Iron deficiency anemia type: unspecified iron deficiency Tachycardia R00.0 GERD without esophagitis K21.9 Vitamin D deficiency E55.9 Low TSH level R79.89 Impaired fasting glucose R73.01 Urinary tract infection without hematuria, site unspecified N39.0 Urinary tract infection type: site unspecified Hematuria presence: without hematuria Anxiety F41.9 Overweight (BMI 25.0-29.9) E66.3
== END 2023-10-05 15:35 | disposition home or self-care (01) ==
PROVIDERS: Visit Provider Internal Medicine
DX: Z00.00 Encounter for general adult medical examination without abnormal findings (principal); J98.4 Other disorders of lung; D50.9 Iron deficiency anemia, unspecified; R00.0 Tachycardia, unspecified; K21.9 Gastro-esophageal reflux disease without esophagitis; E55.9 Vitamin D deficiency, unspecified; R79.89 Other specified abnormal findings of blood chemistry; R73.01 Impaired fasting glucose; N39.0 Urinary tract infection, site not specified; F41.9 Anxiety disorder, unspecified; E66.3 Overweight; M54.50 Low back pain, unspecified
CPT/HCPCS: 81003; 99396

== ENCOUNTER 2023-11-09 08:46 | Outpatient (REF) | payer OTHER, SELFPAY ==
[2023-11-09 09:07] LABS: MANUAL DIFF FLAG NO
[2023-11-09 09:58] LABS: Basophils Absolute Auto 0.1 X10*3/uL (0.0-0.2); Basophils Percent Auto 0.6 % (0-2); Eosinophils Absolute Auto 0.8 X10*3/uL (0.0-0.4); Hematocrit 42.6 % (37.0-47.0); Hemoglobin 13.9 g/dl (12.0-16.0); Imm Gran Abs Auto 0.04 X10*3/uL (0.00-0.03); Imm Gran Pct Auto 0.4 % (0.0-0.4); Lymphocytes Absolute Auto 2.9 X10*3/uL (1.2-4.9); Lymphocytes Percent Auto 28.7 % (20-40); Mean Corpuscular HGB Conc 32.6 g/dl (31.0-35.0); Mean Corpuscular Hemoglobin 28.3 pg (27.0-33.0); Mean Corpuscular Volume 86.8 fL (80.0-98.0); Mean Platelet Volume 10.3 fL (9.4-12.3); Monocytes Absolute Auto 0.6 X10*3/uL (0.1-1.2); Monocytes Percent Auto 5.7 % (2-11); Neutrophils Absolute Auto 5.7 x10*3/uL (2.0-8.3); Neutrophils Percent Auto 56.6 % (45-73); Platelet Count 293 X10*3/uL (160-400); Red Blood Count 4.91 X10*6/uL (4.20-5.50); Red Cell Distribution Width 14.7 % (11.0-16.0)
[2023-11-09 10:22] LABS: Appearance Urine Turbid; Color Urine Yellow; Glucose Urine UA Negative (Negative); Leukocyte Esterase Urine Large (3+) (Negative); Nitrite Urine Positive (Negative); Specific Gravity - Urine 1.015 (1.005-1.025); UMIC TRIGGER UACC YES; Urine Blood Moderate (2+) (Negative); Urine Ketones Negative (Negative); Urine Protein 100 (2+) mg/dL (Neg-Trace)
[2023-11-09 10:56] LABS: Estimated Average Glucose 123 mg/dL; Hemoglobin A1c % 5.9 % (<6.0)
[2023-11-09 10:58] LABS: Alanine Aminotransferase 19 U/L (0-31); Albumin Level 3.7 g/dL (3.5-5.0); Alkaline Phosphatase 88 U/L (39-117); Anion Gap 11 (12-20); Aspartate Amino Transferase 16 U/L (5-31); Bilirubin Total 0.3 mg/dL (0.0-1.0); Blood Urea Nitrogen 11 mg/dL (9-16); Calcium 8.8 mg/dL (8.4-10.2); Carbon Dioxide 25 mmol/L (22-29); Chloride 105 mmol/L (96-108); Cholesterol 204 mg/dL (<200); Estimated Glomerular Filt Rate > 60; Glucose Fasting 135 mg/dL (60-99); HDL Cholesterol 44 mg/dL (>40); LDL Cholesterol Calculated 126 mg/dL (<100); Potassium 3.9 mmol/L (3.3-5.1); Sodium 137 mmol/L (135-145); Total Protein 7.6 g/dL (6.5-8.0); Triglycerides 174 mg/dL (<150)
[2023-11-09 11:02] LABS: Free T4 (Free Thyroxine) 0.87 ng/dL (0.71-1.85); Thyroid Stimulating Hormone 0.81 uIU/mL (0.32-4.0); Vitamin D 25-OH Total 21.6 ng/mL (>30)
[2023-11-09 11:12] LABS: Bacteria Urine 4+ (None Seen); RBC Urine >20 /HPF (0-2); UACC Culture Trigger YES; WBC Urine >50 /HPF (0-5)
== END 2023-11-09 08:47 | disposition home or self-care (01) ==
LOC: HO.LAB 08:46
PROVIDERS: PCP Internal Medicine; Visit Provider Internal Medicine
DX: Z00.00 Encounter for general adult medical examination without abnormal findings (principal); E78.00 Pure hypercholesterolemia, unspecified; R73.01 Impaired fasting glucose; E55.9 Vitamin D deficiency, unspecified; R79.89 Other specified abnormal findings of blood chemistry
CPT/HCPCS: 36415; 80053; 80061; 81001; 82306; 83036; 84439; 84443; 85025; 87086; 87088; 87186

== ENCOUNTER 2024-01-17 15:37 | Outpatient (REF) | payer OTHER, SELFPAY ==
--- NOTE | ~2024-01-17 | MM_ITS ---
EXAMINATION: MM SCREENING DIGITAL BREAST TOMOSYNTHESIS, BILATERAL CLINICAL INFORMATION: Screening. Asymptomatic. The patient is status post bilateral upper outer quadrant biopsies performed in 2013 showing fibroadenomata. COMPARISON: Mammography: This study is compared with prior exams dating back to 2019. TECHNIQUE: Digital breast tomosynthesis is performed in both the craniocaudal and mediolateral oblique views along with computer-aided detection (CAD). Synthesized 2D images are generated from the tomosynthesis. FINDINGS: There are scattered areas of fibroglandular density (ACR BI-RADS breast composition Category b). There are no significant masses, abnormal calcifications, or other abnormalities. There are bilateral, unchanged, mammographically benign masses in the upper outer quadrants of each breast. These occur in association with tissue markers from prior cutaneous biopsy. There is coarse calcification in the mass in the left breast. These masses were shown to represent fibroadenomata. MM/MM tomosynthesis screening BI IMPRESSION: No mammographic evidence of malignancy. ASSESSMENT: BI-RADS BI-RADS 2 - Benign Findings RECOMMENDATION: Routine annual mammography screening. 1 year F/U This examination should not preclude the clinical evaluation of a suspicious palpable abnormality. This patient's information was entered into a reminder system with a target due date for their next mammogram.
== END 2024-01-17 15:38 | disposition home or self-care (01) ==
LOC: HO.MAMMO 15:37
PROVIDERS: PCP Internal Medicine; Visit Provider Internal Medicine
DX: Z12.31 Encounter for screening mammogram for malignant neoplasm of breast (principal)
CPT/HCPCS: 77063; 77067

== ENCOUNTER → 2024-01-17 15:45 | Outpatient (BNV) | payer OTHER, SELFPAY | PROVIDERS: PCP Internal Medicine; Visit Provider Radiology Diagnostic Radiology | DX: Z12.31 Encounter for screening mammogram for malignant neoplasm of breast (principal) | CPT/HCPCS: 77063; 77067 ==

== ENCOUNTER 2024-03-04 14:34 | Outpatient (AMB) | payer OTHER, SELFPAY ==
[2024-03-04 14:51] VITALS: PULSE 74; O2SAT 98; BMI 28.5
--- NOTE | 2024-03-04 14:51 | A.OFFVIS_ITS ---
Vital Signs 03/04/24 14:51 Height 5 ft 6 in Weight 176 lb 12.972 oz BMI 28.5 Pulse 74 Pulse Source Pulse Oximeter Pulse Oximetry (%) 98 Oxygen Delivery Method Room Air Intake Visit Reasons: Chronic Respiratory Failure Allergies ketamine Allergy (Intermediate, Verified 10/05/23 15:24) Rash oxycodone [Percocet] Adverse Reaction (Severe, Verified 10/05/23 15:24) vomiting HPI Comments Details: The patient is a 43 year-old woman apparently healthy who apparently developed severe COVID pneumonia back in the end of June. She require ICU level of care intubation. The patient developed significant pneumonia and ARDS. Her culture positive both for Staph aureus and for Aspergillus. The patient was able to be successfully liberated from the ventilator. She has been on the Oxymizer pendant when she gets most other relief. Does require written 3 4 L with activity. We did do a brief walking oximetry in the office. She did desaturated on room air. She did well on 3 L. The patient should continue on 3 L via Oxymizer pendant. Her Oxymizer pendant is old and she needs to get a replacement from her DME company. We will request Oxymizer pendant from the [employer] this time. The patient also needs a nebulizer machine. Will request from the same DME company to make it easier for her. The patient is currently participating in home pulmonary hypertension. Once the patient is discharged from the home program will plan to have her undergo pulmonary function studies and start pulmonary rehab here in the hospital. 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 She is starting to walk a little bit. This is reassuring. The patient has had a good appetite. She has still been very anxious however. She also has been dealing with this with tachycardia. 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 At this point the patient will undergo blood work in addition to a repeat chest x-ray. Will start nebulized therapy with budesonide and also provide saline and peels for chest physical therapy. The patient follow-up in 3-4 weeks with pulmonary function studies. 10/11/2021 the patient is here for a pulmonary follow-up visit. Overall she is doing a little better. The patient did get her Flovent inhaler and she has been using it twice a day and also received her nebulizer. Back around [place] time she did feel some chest congestion and she uses nebulized treatment. However, he resulted in chest discomfort and palpitations. She did go to the [facility] ER where she was initially evaluated with CT scan of the chest. I do not have the results. Ultimately she did have a follow-up which she had an x-ray and also additional blood work. 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 Although, she still has significant COVID related lung disease. The patient has been feeling better she has been able to cut down the oxygen from 3 L down to 2 L to with the Oxymizer pendant. She gets more relief from it. In the meantime the patient has been able to walk more and going up and down the stairs. She was supposed to undergo pulmonary function studies but she was not able to do so because she was sick in the hospital. Therefore will have to reschedule. In the meantime she needs to start pulmonary rehabilitation. therefore she will be referred to start pulmonary rehab here in the hospital soon as possible. We also reviewed her blood work. Appears that she does have some degree of anemia. Hemoglobin was around 10.3 here in the hospital back in August. However, more recently in the blood work from [facility] hemoglobin dropped further. The patient will start taking additional vitamins. Needs to have a workup for anemia specially since is likely contributing to some degree of her dyspnea. We also personally reviewed her chest x-ray in the office. She still has significant airspace disease bilaterally seems like her right hemidiaphragm slightly elevated as well. All the changes are consistent with her severe COVID infection. 12/09/2021 the patient is here for a pulmonary follow-up visit. She continues to make very good strides improvements. She feels a lot better. Her strength also has improved. She came in walking and in as opposed to before when she was in a wheelchair. She is also on room air which is reassuring. The patient did undergo pulmonary function studies. The PFTs a very limited however. She has severe restrictive disease as well as severe diffusion impairment. However, we did go for a brief walking oximetry and she maintain a pulse ox of 90 the 7-100% With no significant dyspnea. Therefore I do believe the patient is making phenomenally improvements rapidly. she does have the oxygen available. She is using it at nighttime. The patient should have an overnight oximetry to see if she still needs the oxygen at nighttime. The patient also needs to start pulmonary rehabilitation. I am hopeful that she does not need oxygen with rehab. But does keep the oxygen present that she starts rehab in order for us to provide her with the best therapy. 03/28/2022 the patient is here for a pulmonary follow-up visit. She continues to improve and has become better and better. She is exercising regularly at pulmonary rehab without any limitations and without any oxygen requirements. She did get the pulse oximeter to perform the overnight oximetry but she has not done as of yet. She will be due soon. Once we have that available and if she does not need the oxygen will go ahead and discontinue the oxygen for her. The patient understands that if she returns the oxygen and she ever needs it infusion we will easily get it for her. The patient has not had to use her nebulized therapy or rescue therapy at this time. She has not had any imaging studies since September 2021. Therefore I will request a chest x-ray at this time to have a baseline. Will follow-up in the spring unless the patient has any worsening symptoms. At which point when she comes back will have her undergo pulmonary function studies. 02/06/2023 The patient is here for a pulmonary follow up vist. She is doing a lot better. Completed rehab. No longer using the inhaler nor the oxygen. She does get dyspneic she going up cough flights of stairs. Resting helps. We did review her PFTs and they are dramatically better, although, TLC is still in the 50% rage. Will request a CXR prior to her leaving. 03/04/2024 the patient is here for a pulmonary follow-up visit. She continues to do fairly well. She does have dyspnea on exertion specially when going up a flight of stairs or an incline. [id number] severity. The patient also has been having some issues with her sleep. Sometimes she can not sleep supine. She has a hard time. She does better on the side. She does wake up tired. Her [place] score is elevated 9/24. Be very reasonable to have her undergo sleep study. She already has cardiovascular risk factors. She is gained some weight. Her fasting blood sugar has been elevated and likely has diabetes if not prediabetes. I will refer the patient to a dietitian to help her with her w eight gain that is ultimately affecting her respiratory capacity. She also has some lower extremity edema. 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 Chronic respiratory failure Pneumonia Anxiety Surgical History History of nephrolithiasis H/O breast biopsy History of laparoscopic cholecystectomy Family History Father Diabetes Hypertension Mother Diabetes Hypertension Maternal Grandfather Throat cancer Brother High cholesterol Maternal Grandmother Hypertension Social History Household Members: Spouse and Children Household Members Other:: Mother Housing: House Do you presently have visiting nurse or other home services: No Unable to assess alcohol history related to: Unknown Patient Tobacco Use Status: Former Tobacco user e-Cigarette/Vaping Use: Never Used Second Hand Smoke Exposure: No service: No Current occupational status: unemployed Cognitive needs: No Hearing needs: No Vision needs: No Review of Systems Const Denies chills, Reports daytime sleepiness, Denies difficulty sleeping (due to anxiety), Denies fatigue, Denies fever(s) and Denies headache(s) ENT Denies headache(s), Denies odynophagia, Denies sinus pain and Denies sore throat Card Denies chest pain, Denies palpitations (occasional palpitations) and Reports dyspnea on exertion Resp Denies cough, Reports dyspnea on exertion and Denies wheezing GI Denies abdominal pain, Denies constipation, Denies heartburn, Denies diarrhea, Denies nausea, Denies odynophagia and Denies vomiting Denies difficulty voiding, Denies nocturia and Denies dysuria Neuro Denies headache(s) Psych Reports anxiety and Denies mood swings Endo Denies fatigue and Denies palpitations (occasional palpitations) Aller/Immun Denies wheezing Physical Exam Vital Signs: Last Vital Signs Pulse 74 03/04/24 14:51 Pulse Ox 98 03/04/24 14:51 Oxygen Delivery Method Room Air 03/04/24 14:51 BMI result Body Mass Index 28.5 Const General: alert Neck Neck: Yes normal visual inspection, Yes full ROM and Yes no lymphadenopathy Chest Chest palpation & inspection: normal inspection of the chest Resp Auscultation: no crackles, no rales and diminished lung sounds Cardio Rate: regular rate Rhythm: regular rhythm Heart sounds: S1 normal heart sound present and S2 normal heart sound present GI Palpation (GI): Soft to palpation and nontender Auscultation: normal bowel sounds Skin General skin exam: rashes and/or lesions noted Extrem General: Yes no clubbing, cyanosis or edema Assessment & Plan Assessment & Plan (1) Chronic respiratory failure: Comment: Significantly better Code(s): J96.10 - Chronic respiratory failure, unspecified whether with hypoxia or hypercapnia Category: Medical Qualifiers: Respiratory failure complication: unspecified whether with hypoxia or hypercapnia Qualified Code(s): J96.10 - Chronic respiratory failure, unspecified whether with hypoxia or hypercapnia (2) ILD (interstitial lung disease): Code(s): J84.9 - Interstitial pulmonary disease, unspecified Category: Medical (3) Chronic restrictive lung disease: Code(s): J98.4 - Other disorders of lung Category: Medical (4) JEFRY (obstructive sleep apnea): Code(s): G47.33 - Obstructive sleep apnea (adult) (pediatric) Category: Medical (5) Overweight (BMI 25.0-29.9): Code(s): E66.3 - Overweight Category: Medical Plan Xopex as needed for chest tightness continue deep breathing exercises referral to [facility] follow-up in 3-4 months Orders: Orders RT home sleep study Today G47.33 - Obstructive sleep apnea (adult) (pediatric) Referrals [facility] Referral E66.3 - Overweight, R73.01 - Impaired fasting glucose Coding Level of Care Code Est Pt Level 4 (26288) Diagnoses Chronic respiratory failure, unspecified whether with hypoxia or hypercapnia J96.10 Respiratory failure complication: unspecified whether with hypoxia or hypercapnia ILD (interstitial lung disease) J84.9 Chronic restrictive lung disease J98.4 JEFRY (obstructive sleep apnea) G47.33 Overweight (BMI 25.0-29.9) E66.3 Time Spent (min) 16
== END 2024-03-04 15:18 | disposition home or self-care (01) ==
PROVIDERS: PCP Internal Medicine; Visit Provider Hospitalist
DX: J96.10 Chronic respiratory failure, unspecified whether with hypoxia or hypercapnia (principal); J84.9 Interstitial pulmonary disease, unspecified; J98.4 Other disorders of lung; G47.33 Obstructive sleep apnea (adult) (pediatric); E66.3 Overweight
CPT/HCPCS: 99214

== ENCOUNTER → 2024-03-04 14:34 | Outpatient (BNVA) | payer OTHER, SELFPAY | PROVIDERS: PCP Internal Medicine; Visit Provider Hospitalist | DX: J96.10 Chronic respiratory failure, unspecified whether with hypoxia or hypercapnia (principal); J84.9 Interstitial pulmonary disease, unspecified; J98.4 Other disorders of lung; G47.33 Obstructive sleep apnea (adult) (pediatric); E66.3 Overweight; Z68.28 Body mass index [BMI] 28.0-28.9, adult | CPT/HCPCS: 99212 ==

== ENCOUNTER → 2024-04-02 14:57 | Outpatient (REF) | payer OTHER, SELFPAY | LOC: HO.SL 14:57 | PROVIDERS: PCP Internal Medicine; Visit Provider Hospitalist | DX: G47.33 Obstructive sleep apnea (adult) (pediatric) (principal) | CPT/HCPCS: 95806 ==

== ENCOUNTER → 2024-04-03 15:11 | Outpatient (BNV) | payer OTHER, SELFPAY | PROVIDERS: PCP Internal Medicine; Visit Provider Internal Medicine | DX: R06.83 Snoring (principal) | CPT/HCPCS: 95806 ==

== ENCOUNTER 2024-04-04 16:44 | Outpatient (AMB) | payer OTHER, SELFPAY ==
--- NOTE | 2024-04-04 16:46 | A.OFFPC_ITS ---
Vital Signs 04/04/24 16:49 Height 5 ft 6 in Weight 176 lb 6 oz BMI 28.5 BP 122/86 Blood Pressure Location Lt brachial Position Sitting Pulse 82 Pulse Source Pulse Oximeter Pulse Oximetry (%) 97 Oxygen Delivery Method Room Air Intake Visit Reasons: 6 month f/u Intake Note: Patient is here to follow up on symptoms. Contact Center Engineer Required: No Accompanied by: Self / Same As Patient Allergies ketamine Allergy (Intermediate, Verified 04/04/24 22:34) Rash oxycodone [Percocet] Adverse Reaction (Severe, Verified 04/04/24 22:34) vomiting Medication List - Last Reconciled 04/04/24 by Nile Denny MD acetaminophen 650 mg PO Q6H PRN budesonide 0.5 mg inhalation BID 30 days bupropion HCl XL (Wellbutrin XL) 150 mg PO QAM 30 days cholecalciferol (vitamin D3) 50 mcg PO DAILY 90 days ferrous sulfate 325 mg PO DAILY 30 days ipratropium-albuterol 0.5 mg-3 mg(2.5 mg base)/3 mL 3 mL inhalation Q4-6H PRN 30 days lorazepam 1 mg PO BEDTIME PRN 30 days mometasone 200 mcg/actuation (Asmanex HFA) 2 puffs inhalation BID nebulizers (Compact Compressor Nebulizer) As directed omeprazole 40 mg PO DAILY Tobacco use date assessed: 04/04/24 Dental Screening Dental Screen Date: 04/04/24 Did you have a dental visit in the last 12 months?: Yes Did you have a dental problem in the last 6 months where you did not have access to dental care?: No Was dental information given to patient?: Patient has dentist HPI 6 month f/u HPI Details Patient comes in today for her follow up visit States that she feels okay She denies any headaches or dizziness Denies any chest pains, no SOB No nausea/vomiting, no abdominal pain No change in bowel habits noted States that she just had her home sleep study done but has not yet received her results She does have a follow up appointment scheduled with Dr. 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 Chronic respiratory failure Pneumonia Anxiety Surgical History History of nephrolithiasis H/O breast biopsy History of laparoscopic cholecystectomy Family History Father Diabetes Hypertension Mother Diabetes Hypertension Maternal Grandfather Throat cancer Brother High cholesterol Maternal Grandmother Hypertension Social History Household Members: Spouse and Children Household Members Other:: Mother Housing: House Do you presently have visiting nurse or other home services: No Unable to assess alcohol history related to: Unknown Patient Tobacco Use Status: Former Tobacco user e-Cigarette/Vaping Use: Never Used Second Hand Smoke Exposure: No service: No Current occupational status: unemployed Cognitive needs: No Hearing needs: No Vision needs: No Questionnaire PHQ-9 Over the last 2 weeks, how often have you been bothered by any of the following problems? 1. Little interest or pleasure in doing things: not at all 2. Feeling down, depressed, or hopeless: not at all 3. Trouble falling or staying asleep, or sleeping too much: not at all 4. Feeling tired or having little energy: not at all 5. Poor appetite or overeating: not at all 6. Feeling bad about yourself - or that you are a failure or have let yourself or your family down: not at all 7. Trouble concentrating on things, such as reading the newspaper or watching television: not at all 8. Moving or speaking so slowly that other people could have noticed. Or the opposite - being so fidgety or restless that you have been moving around a lot more than usual: not at all 9. Thoughts that you would be better off or of hurting yourself in some way: not at all Total score: 0 Depression Screening Interpretation: Negative Depression Screening Done: Yes 95170 - PHQ-9 Billing: Yes Source: Developed by Drs. Uvaldo Hardy, Teri B.Dewey Kirby and colleagues, with an educational perry from [employer]. Thrive Questionnaire Date Thrive assessed: 04/04/24 I am a: Patient What is your living situation today?: I have a steady place to live Within the past 12 months, did the food you bought not last and you didn't have the money to get more?: Never true Within the past 12 months, did you worry whether your food would run out before you got money to buy more?: Never true Do you have trouble paying for medicines?: No Do you have trouble getting transportation to medical appointments?: No Do you have trouble paying your heating and electricity bill?: No Do you have trouble taking care of your child, family member or friend?: No Do you have trouble with day-to-day activities such as bathing, preparing meals, shopping, managing finances, etc.?: No Are you currently unemployed and looking for a job?: No Are you interested in more education?: No Currently or been in a relationship where the following occur: No concerns reported THRIVE Score: 0 AUDIT C Alcohol Use Questionnaire (AUDIT-C) 1. How often do you have a drink containing alcohol?: Never 3. How often do you have six or more drinks on one occasion?: Never Total Score: 0 Score Reviewed/Action Taken: Yes NANCY-7 AMB Questionnaire NANCY-7 Date NANCY - 7 assessed: 04/04/24 Feeling nervous, anxious, or on edge: 0 = Not at all Not being able to stop or control worryin = Not at all Worrying too much about different things: 0 = Not at all Trouble relaxin = Not at all Being so restless that it is hard to sit still: 0 = Not at all Becoming easily annoyed or irritable: 0 = Not at all Feeling afraid as if something awful might happen: 0 = Not at all Total NANCY-7 score (0-4 normal; 5-9 mild; 10-14 moderate; 15-21 severe): 0 Source: Developed by Drs. Uvaldo Hardy, Dewey Tran and colleagues, with an educational perry from [employer]. Review of Systems Const Denies chills, Denies fatigue, Denies fever(s) and Denies headache(s) ENT Denies dysphagia, Denies dizziness, Denies otalgia, Denies headache(s), Denies neck pain, Denies odynophagia and Denies sore throat Card Denies chest pain, Denies rapid heart rate, Denies irregular heart rhythm, Denies palpitations and Denies dyspnea Resp Denies cough, Denies dyspnea and Denies wheezing GI Denies abdominal pain, Denies constipation, Denies dysphagia, Denies heartburn, Denies diarrhea, Denies nausea, Denies odynophagia and Denies vomiting Denies difficulty voiding, Denies nocturia, Denies dysuria and Denies urinary urgency Musc Denies back pain, Denies arthralgias and Denies neck pain Skin/Breast Denies rash Neuro Denies dizziness, Denies headache(s) and Denies paresthesias Psych Reports anxiety (is on Lorazepam) and Denies depression Endo Denies fatigue and Denies palpitations Guru/Lymph Denies easy bruising Aller/Immun Denies wheezing Physical exam (Primary Care) Vital Signs: Last Vital Signs Pulse 82 04/04/24 16:49 BP 122/86 04/04/24 16:49 Pulse Ox 97 04/04/24 16:49 Oxygen Delivery Method Room Air 04/04/24 16:49 BMI result Body Mass Index 28.5 Tobacco/Smoking Status: Tobacco use Status Tobacco use date assessed 04/04/24 04/04/24 16:52 Patient Tobacco Use Status Former Tobacco user 04/04/24 16:48 e-Cigarette/Vaping Use Never Used 04/04/24 16:48 PHQ-9: PHQ-9 Score PHQ-9: Total score 0 04/04/24 23:01 Depression Screening Interpretation: Negative Thrive Assessment: Date of Thrive Assessment Date Thrive assessed 04/04/24 04/04/24 16:48 Currently or been in a relationship where the following occur: No concerns reported Const General: no acute distress and alert HENMT Ears: TM's normal bilaterally and EAC's normal Throat: Yes posterior oropharynx normal and Yes tonsils normal (no TP congestion) Neck Neck: Yes no lymphadenopathy and Yes supple Thyroid: Thyroid normal Resp Auscultation: clear to auscultation bilaterally, no rales and no wheezes Cardio Rate: regular rate Rhythm: regular rhythm Heart sounds: no murmurs GI Palpation (GI): Soft to palpation and nontender Auscultation: normal bowel sounds General: Yes no CVA tenderness Back/Spine/Pelvis Back: no CVA tenderness Thoracic/Lumbar Spine: No lumbar spinal tenderness Skin Rashes: no rashes Extrem General: Yes no clubbing, cyanosis or edema Results Reviewed Results Reviewed: Laboratory Tests 10/20/22 11/09/23 11/09/23 08:14 09:06 09:41 WBC 10.0 Hgb 13.9 Hct 42.6 Plt Count 293 Sodium 137 Potassium 3.9 Creatinine 0.79 Estimated GFR > 60 Fasting Glucose 135 H Hemoglobin A1c % 5.9 Calcium 8.8 AST 16 ALT 19 Triglycerides 141 174 H Cholesterol 176 204 H LDL Cholesterol, Calc 102 126 H HDL Cholesterol 46 44 25-OH Vitamin D Total 21.6 L TSH 0.81 Free T4 0.87 Ur Specific [place] 1.015 Urine Protein 100 (2+) H Urine Glucose (UA) Negative Urine Blood Moderate (2+) H Urine Nitrite Positive H Ur Leukocyte Esterase Large (3+) H Assessment and Plan Assessment & Plan (1) Mixed hyperlipidemia: Code(s): E78.2 - Mixed hyperlipidemia Plan: Results of her labs done back in November 2023 reviewed and discussed with patient - she is advised that her cholesterol levels then have increased significantly from her previous numbers last year Reinforced low cholesterol diet Will have her recheck her labs and fasting lipids in 6 months for follow up and she is advised that if her numbers do not improve significantly by then, we will need to consider starting her on cholesterol-lowering medications (2) Chronic respiratory failure: Comment: Significantly better Code(s): J96.10 - Chronic respiratory failure, unspecified whether with hypoxia or hypercapnia Qualifiers: Respiratory failure complication: unspecified whether with hypoxia or hypercapnia Qualified Code(s): J96.10 - Chronic respiratory failure, unspecified whether with hypoxia or hypercapnia Plan: Patient's breathing has been significantly compromised since she contracted COVID in June 2021, requiring a brief period of intubation and mechanical ventilation at the time She has required oxygen supplementation since, especially with activity or exertion as she would then experience hypoxemia with activity Her breathing has been gradually improving since and no longer needs oxygen currently although she still has LEARY and easy fatigability She also has trouble sleeping on her back and has had some symptoms suggestive of hypoventilation or a sleep disorder States that she just completed her home sleep study and is currently waiting for her results to come back Follow up with pulmonary as scheduled (3) Anemia: Code(s): D64.9 - Anemia, unspecified Qualifiers: Anemia type: iron deficiency Iron deficiency anemia type: unspecified iron deficiency Qualified Code(s): D50.9 - Iron deficiency anemia, unspecified Plan: Corrected - continue Ferrous Sulfate 325 mg QD She was still anemic on her labs back in October 2022 but follow up labs in June 2023 revealed normal H/H Her H/H have also remained normal on her November 2023 labs Will continue to monitor her CBC regularly (4) Impaired fasting glucose: Code(s): R73.01 - Impaired fasting glucose Plan: Patient is advised that her serum glucose was again elevated back in November 2023 and her HgbA1c was at 5.9% back then Her HgbA1c was at 6.0% previously back in 2020 She is advised that based on her results, she has borderline diabetes Reinforced diabetic diet; exercise as tolerated Per request, will refer her to a goldbeater to help guide her on her dietary guidelines and recommendations (5) GERD without esophagitis: Code(s): K21.9 - Gastro-esophageal reflux disease without esophagitis Plan: Dietary restrictions reinforced Continue Omeprazole 40 mg QD (6) Vitamin D deficiency: Code(s): E55.9 - Vitamin D deficiency, unspecified Plan: She is advised that her Vitamin D level was still low on her labs done in November 2023 Continue Vitamin D3 2000 units QD (7) Low TSH level: Code(s): R79.89 - Other specified abnormal findings of blood chemistry Plan: Her TSH was normal and free T4 remained normal on her labs done in November 2023 Patient is currently clinically euthyroid (8) Anxiety: Code(s): F41.9 - Anxiety disorder, unspecified Plan: Continue Lorazepam 1 mg QD / HS PRN (Rx refilled) and Wellbutrin XL 150 mg QD (9) Overweight (BMI 25.0-29.9): Code(s): E66.3 - Overweight Plan: Reinforced diet/exercise as tolerated/lose weight Plan To return in 6 months for her next annual physical examination Orders: Orders Comprehensive [place]. Panel Fast 6 Months E78.00 - Pure hypercholesterolemia, unspecified UA CC w/rflx Micro + Cult 6 Months R30.0 - Dysuria Complete Blood Count Auto Diff 6 Months D64.9 - Anemia, unspecified Lipid Panel 6 Months E78.00 - Pure hypercholesterolemia, unspecified TSH reflex Free T4 6 Months E78.00 - Pure hypercholesterolemia, unspecified Vitamin D 25-OH Total 6 Months E55.9 - Vitamin D deficiency, unspecified Hemoglobin A1c 6 Months R73.01 - Impaired fasting glucose Referrals Nutrition/Dietitian Referral E78.5 - Hyperlipidemia, unspecified, R73.01 - Impaired fasting glucose Medications: Refilled lorazepam 1 mg PO BEDTIME 30 days PRN 30 tabs 0RF anxiety F41.9 - Anxiety disorder, unspecified Coding Level of Care Code Est Pt Level 4 (58058) Diagnoses Mixed hyperlipidemia E78.2 Chronic respiratory failure, unspecified whether with hypoxia or hypercapnia J96.10 Respiratory failure complication: unspecified whether with hypoxia or hypercapnia Iron deficiency anemia, unspecified iron deficiency anemia type D50.9 Anemia type: iron deficiency Iron deficiency anemia type: unspecified iron deficiency Impaired fasting glucose R73.01 GERD without esophagitis K21.9 Vitamin D deficiency E55.9 Low TSH level R79.89 Anxiety F41.9 Overweight (BMI 25.0-29.9) E66.3
[2024-04-04 16:49] VITALS: BP 122/86; PULSE 82; O2SAT 97; BMI 28.5
== END 2024-04-04 17:18 | disposition home or self-care (01) ==
PROVIDERS: PCP Internal Medicine; Visit Provider Internal Medicine
DX: E78.2 Mixed hyperlipidemia (principal); J96.10 Chronic respiratory failure, unspecified whether with hypoxia or hypercapnia; D50.9 Iron deficiency anemia, unspecified; R73.01 Impaired fasting glucose; K21.9 Gastro-esophageal reflux disease without esophagitis; E55.9 Vitamin D deficiency, unspecified; R79.89 Other specified abnormal findings of blood chemistry; F41.9 Anxiety disorder, unspecified; E66.3 Overweight
CPT/HCPCS: 99214

== ENCOUNTER 2024-06-05 14:19 | Outpatient (AMB) | payer OTHER, SELFPAY ==
[2024-06-05 14:24] VITALS: PULSE 72; O2SAT 99; BMI 27.4
--- NOTE | 2024-06-05 14:24 | A.OFFVIS_ITS ---
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 She require ICU level of care intubation. The patient developed significant pneumonia and ARDS. Her culture positive both for Staph aureus and for Aspergillus. The patient was able to be successfully liberated from the ventilator. She has been on the Oxymizer pendant when she gets most other relief. Does require written 3 4 L with activity. We did do a brief walking oximetry in the office. She did desaturated on room air. She did well on 3 L. The patient should continue on 3 L via Oxymizer pendant. Her Oxymizer pendant is old and she needs to get a replacement from her DME company. We will request Oxymizer pendant from the [employer] this time. The patient also needs a nebulizer machine. Will request from the same DME company to make it easier for her. The patient is currently participating in home pulmonary hypertension. Once the patient is discharged from the home program will plan to have her undergo pulmonary function studies and start pulmonary rehab here in the hospital. 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 She is starting to walk a little bit. This is reassuring. The patient has had a good appetite. She has still been very anxious however. She also has been dealing with this with tachycardia. 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 At this point the patient will undergo blood work in addition to a repeat chest x-ray. Will start nebulized therapy with budesonide and also provide saline and peels for chest physical therapy. The patient follow-up in 3-4 weeks with pulmonary function studies. 03/04/2024 the patient is here for a pulmonary follow-up visit. She continues to do fairly well. She does have dyspnea on exertion specially when going up a flight of stairs or an incline. [id number] severity. The patient also has been having some issues with her sleep. Sometimes she can not sleep supine. She has a hard time. She does better on the side. She does wake up tired. Her [place] score is elevated /24. Be very reasonable to have her undergo sleep study. She already has cardiovascular risk factors. She is gained some weight. Her fasting blood sugar has been elevated and likely has diabetes if not prediabetes. I will refer the patient to a dietitian to help her with her weight gain that is ultimately affecting her respiratory capacity. She also has some lower extremity edema. 06/05/2024 the patient is here for a pulmonary follow-up visit. Overall she is doing about the same. Still complaining of dyspnea on exertion. Specially when going up a flight of stairs and also an incline. The times that she actually has to stop and sit down she is going multiple flights. Here in the office we did go on some stairs and wash their going upstairs. The patient did have significant elevation heart rate after 1 flight with the heart rate increased to about 122 beats per minute. Pulse ox stable. She was visibly dyspneic. Respiratory figueredo the patient is doing well. She has a rescue inhaler but she has not used it. She also had a sleep study which we personally reviewed. No evidence of any pathological sleep apnea. She tends to have a little bit more episodes when she is laying on her right side down. She is going to try to minimize that. The patient will start exercise regimen with the and hopefully we can get an echocardiogram to assess her cardiac function and rule out any pulmonary hypertension. Patient follow-up in 4-6 months. 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 Chronic respiratory failure Pneumonia Anxiety Surgical History History of nephrolithiasis H/O breast biopsy History of laparoscopic cholecystectomy Family History Father Diabetes Hypertension Mother Diabetes Hypertension Maternal Grandfather Throat cancer Brother High cholesterol Maternal Grandmother Hypertension Social History Household Members: Spouse and Children Household Members Other:: Mother Housing: House Do you presently have visiting nurse or other home services: No Unable to assess alcohol history related to: Unknown Patient Tobacco Use Status: Former Tobacco user e-Cigarette/Vaping Use: Never Used Second Hand Smoke Exposure: No service: No Current occupational status: unemployed Cognitive needs: No Hearing needs: No Vision needs: No Review of Systems Const Denies chills, Reports daytime sleepiness, Denies difficulty sleeping (due to anxiety), Denies fatigue, Denies fever(s), Denies headache(s) and Reports weight gain ENT Denies headache(s), Denies odynophagia, Denies sinus pain and Denies sore throat Card Denies chest pain, Reports palpitations (occasional palpitations) and Reports dyspnea on exertion Resp Denies cough, Reports dyspnea on exertion and Denies wheezing GI Denies abdominal pain, Denies constipation, Denies heartburn, Denies diarrhea, Denies nausea, Denies odynophagia and Denies vomiting Denies difficulty voiding, Denies nocturia and Denies dysuria Neuro Denies headache(s) Psych Reports anxiety and Denies mood swings Endo Denies fatigue and Reports palpitations (occasional palpitations) Aller/Immun Denies wheezing Physical Exam Vital Signs: Last Vital Signs Pulse 72 06/05/24 14:24 Pulse Ox 99 06/05/24 14:24 Oxygen Delivery Method Room Air 06/05/24 14:24 BMI result Body Mass Index 27.4 Const General: alert Neck Neck: Yes normal visual inspection, Yes full ROM and Yes no lymphadenopathy Chest Chest palpation & inspection: normal inspection of the chest Resp Effort & Inspection: normal respiratory effort Auscultation: no crackles, no rales and diminished lung sounds Cardio Rate: regular rate Rhythm: regular rhythm Heart sounds: S1 normal heart sound present and S2 normal heart sound present GI Palpation (GI): Soft to palpation and nontender Auscultation: normal bowel sounds Skin General skin exam: rashes and/or lesions noted Extrem General: Yes no clubbing, cyanosis or edema Assessment & Plan Assessment & Plan (1) Chronic respiratory failure: Comment: Significantly better Code(s): J96.10 - Chronic respiratory failure, unspecified whether with hypoxia or hypercapnia Category: Medical Qualifiers: Respiratory failure complication: unspecified whether with hypoxia or hypercapnia Qualified Code(s): J96.10 - Chronic respiratory failure, unspecified whether with hypoxia or hypercapnia (2) ILD (interstitial lung disease): Code(s): J84.9 - Interstitial pulmonary disease, unspecified Category: Medical (3) Chronic restrictive lung disease: Code(s): J98.4 - Other disorders of lung Category: Medical (4) Overweight (BMI 25.0-29.9): Code(s): E66.3 - Overweight Category: Medical Plan Xopex as needed for chest tightness continue deep breathing exercises ECHO UA and start Bactrim follow-up in 6 months Orders: Orders UA CC w/rflx Micro + Cult Today R30.0 - Dysuria CA echo transthoracic complete Today I27.20 - Pulmonary hypertension, unspecified Medications: New sulfamethoxazole-trimethoprim 800-160 mg (Bactrim DS) 1 tab PO Q12H 20 tabs 0RF 10 days Coding Level of Care Code Est Pt Level 4 (72614) Diagnoses Chronic respiratory failure, unspecified whether with hypoxia or hypercapnia J96.10 Respiratory failure complication: unspecified whether with hypoxia or hypercapnia ILD (interstitial lung disease) J84.9 Chronic restrictive lung disease J98.4 Overweight (BMI 25.0-29.9) E66.3 Time Spent (min) 18
== END 2024-06-05 14:41 | disposition home or self-care (01) ==
PROVIDERS: PCP Internal Medicine; Visit Provider Hospitalist
DX: J96.10 Chronic respiratory failure, unspecified whether with hypoxia or hypercapnia (principal); J84.9 Interstitial pulmonary disease, unspecified; J98.4 Other disorders of lung; E66.3 Overweight
CPT/HCPCS: 99214

== ENCOUNTER → 2024-06-05 14:19 | Outpatient (BNVA) | payer OTHER, SELFPAY | PROVIDERS: PCP Internal Medicine; Visit Provider Hospitalist | DX: J96.10 Chronic respiratory failure, unspecified whether with hypoxia or hypercapnia (principal); J84.9 Interstitial pulmonary disease, unspecified; J98.4 Other disorders of lung; E66.3 Overweight; Z68.27 Body mass index [BMI] 27.0-27.9, adult | CPT/HCPCS: 99212 ==

== ENCOUNTER 2024-06-06 08:58 | Outpatient (REF) | payer OTHER, SELFPAY ==
[2024-06-06 11:09] LABS: Appearance Urine Turbid; Color Urine Yellow; Glucose Urine UA Negative (Negative); Leukocyte Esterase Urine Large (3+) (Negative); Nitrite Urine Positive (Negative); UMIC TRIGGER UACC YES; Urine Blood Moderate (2+) (Negative); Urine Ketones Negative (Negative); Urine Protein 100 (2+) mg/dL (Neg-Trace)
[2024-06-06 11:16] LABS: Bacteria Urine 3+ (None Seen); Hyaline Casts Urine 0-2 /LPF (0-2); UACC Culture Trigger YES; WBC Urine >50 /HPF (0-5)
== END 2024-06-06 08:59 | disposition home or self-care (01) ==
LOC: HO.LAB 08:58
PROVIDERS: Visit Provider Hospitalist
DX: R30.0 Dysuria (principal); R82.79 Other abnormal findings on microbiological examination of urine
CPT/HCPCS: 81001; 87086; 87088; 87186

== ENCOUNTER → 2024-06-16 14:00 | Outpatient (REF) | payer OTHER, SELFPAY ==
--- NOTE | 2024-06-16 14:03 | CA_ITS ---
Transthoracic Echocardiogram Patient (Last, First, Middle): Dominique Astudillo, Gender: Female Date of : 1980 Age: 44 Procedure Date: 06/16/2024 Procedure Type: Transthoracic Echocardiogram Location: OP Height: 167.64 cm Weight: 77.11 kg BSA: 1.87 m2 Heart Rate: bpm BP: 130 / 80 mmHg Sales Analyst: Referring MD: Gary Royal MD Symptoms: I27.20 - Pulmonary hypertension, unspecified Study Quality: Adequate ECG Rhythm: Sinus Conclusions: - The left ventricular systolic function is normal. The calculated ejection fraction is 56% by biplane method. - No obvious valvular pathology seen on this study. - There is no evidence of pulmonary hypertension. Findings Left Ventricle Normal left ventricular cavity size. There is normal left ventricular wall thickness. The left ventricular systolic function is normal. The calculated ejection fraction is 56% by biplane method. There is no evidence of regional wall motion abnormalities. Diastolic function is normal for age. Right Ventricle Normal right ventricular cavity size and systolic function. Atria Both atria are normal in size. Aortic Valve There is a normal trileaflet aortic valve. There is no aortic valve stenosis. There is no aortic valve regurgitation. Mitral Valve The mitral valve appears normal. There is trace mitral valve regurgitation. There is no mitral valve stenosis. Pulmonic Valve The pulmonic valve is likely normal. Tricuspid Valve Normal tricuspid valve structure. There is mild tricuspid valve regurgitation. There is no evidence of pulmonary hypertension. Great Vessels The asc aorta is normal in size. Venous The inferior vena cava is normal in size and collapses greater than 50% with inspiration. Pericardium/Pleural There is no evidence of pericardial effusion. Prior Study Comparison No prior study available for comparison. Recommendations, Care & Conclusions No obvious valvular pathology seen on this study. Measurements 2D Linear Measurements IVSd: 0.94 0.6-0.9/0.6-1.0 cm LVIDd: 4.27 3.9-5.3/4.2-5.9 cm LVIDd Index: 2.28 2.4-3.2/2.2-3.1 cm/m2 LVIDs: 2.66 2.0-3.6 cm LVPWd: 0.90 0.7-1.1 cm Ao Root: 2.20 2.1-3.5 cm LA Diam: 3.10 2.7-3.8/3.0-4.0 cm LAIDs Index: 1.66 1.5-2.3 cm/m2 LV Mass: 156.72 67-162/88-224 g LV Mass Index: 83.81 43-95/49-115 g/m2 LVOT Diam: 1.90 3.0+(-)1.3 cm 2D Systolic Function EF 4C: 52.80 >55% EF 2C: 61.70 >55% EF BiP: 56.00 >55% Mitral Valve MV VTI: 0.30 MV Pk Jaya: 0.96 MV Mn Jaya: 0.54 MV Pk Grad: 4.00 MV Mn Grad: 1.00 MV Pk E: 1.12 MV PK A: 0.81 MV Decel Time: 198.00 E/A: 1.40 E'Lateral: 11.60 E'Medial: 6.96 E/E' Med: 16.10 E/E' Lat: 9.70 PHT: 58.00 MVA PHT: 3.79 MVA Continuity: 1.97 Decel Chambers: 5.65 Aortic Valve AoV Pk Jaya: 1.75 AoV Pk Grad: 12.00 LVOT LVOT Pk Jaya: 1.04 LVOT Mn Jaya: 0.67 LVOT VTI: 0.21 LVOT Pk Grad: 4.00 LVOT Mn Grad: 2.00 LVOT Diam: 1.90 LVOT Area: 2.84 Diastolic Function MV Pk E: 1.12 MV Pk A: 0.81 E/A: 1.40 E'Medial: 6.96 E/E' Med: 16.10 E' Laterial: 11.60 E/E' Lat: 9.70 Right Ventricle TAPSE (mm): 26.00 TVS' Jaya: 11.00 Tricuspid Valve TR Pk Jaya: 2.69 TR Pk Grad: 29.00 RA Press: 3.00 RVSP: 32.00 Great Vessels Aorta Ao Root-2D: 2.20 2.0-3.7 cm Ao Asc: 2.70 2.1-3.4 cm Pulmonary Valve PV Pk Jaya: 1.05 Peak PV Grad: 4.00 Updated in Other Vendor System with Status of Final Eliseo Grimes MD electronically signed on 06/17/2024 8:31:04 AM with status of Final
== END ==
LOC: HO.CARD 14:00
PROVIDERS: PCP Internal Medicine; Visit Provider Hospitalist
DX: I27.20 Pulmonary hypertension, unspecified (principal)
CPT/HCPCS: 93306

== ENCOUNTER → 2024-06-16 14:03 | Outpatient (BNV) | payer OTHER, SELFPAY | PROVIDERS: PCP Internal Medicine; Visit Provider Internal Medicine | DX: I36.1 Nonrheumatic tricuspid (valve) insufficiency (principal) | CPT/HCPCS: 93306 ==

== ENCOUNTER 2024-10-07 15:18 | Outpatient (AMB) | payer OTHER, SELFPAY ==
--- NOTE | 2024-10-07 15:20 | MHC.PC.OV ---
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 Required: No Accompanied by: Self / Same As Patient Allergies ketamine Allergy (Intermediate, Verified 10/07/24 15:33) Rash oxycodone [Percocet] Adverse Reaction (Severe, Verified 10/07/24 15:33) vomiting Medication List - Last Reconciled 10/07/24 by Nile Denny MD acetaminophen 650 mg PO Q6H PRN budesonide 0.5 mg inhalation BID 30 days ipratropium-albuterol 0.5 mg-3 mg(2.5 mg base)/3 mL 3 mL inhalation Q4-6H PRN 30 days lorazepam 1 mg PO BEDTIME PRN 30 days nebulizers (Compact Compressor Nebulizer) As directed Tobacco use date assessed: 10/07/24 Dental Screening Dental Screen Date: 10/07/24 Did you have a dental visit in the last 12 months?: Yes Did you have a dental problem in the last 6 months where you did not have access to dental care?: No Was dental information given to patient?: Patient has dentist HPI PHYSICAL HPI Details Patient comes in today for her annual physical examination States that she feels okay She denies any headaches or dizziness Denies any chest pains, no shortness of breath No nausea/vomiting, no abdominal pain No change in bowel habits noted States that she has noticed some urinary urgency for the past 1-2 days but denies any urinary frequency or dysuria Patient was not able to get her follow-up labs done prior to appointment today - states that she will try to get these done PORTIA She has not had her yearly gynecology exam/Pap smear done in a few years now She last had her annual mammogram done back in January 2024 She has never had a screening colonoscopy done in the past [facility] Medical History Dysuria Mixed hyperlipidemia Vitamin D deficiency Overweight (BMI 25.0-29.9) Chronic restrictive lung disease ILD (interstitial lung disease) GERD without esophagitis COVID-19 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 Chronic respiratory failure Pneumonia Anxiety Surgical History History of nephrolithiasis H/O breast biopsy History of laparoscopic cholecystectomy Family History Father Diabetes Hypertension Mother Diabetes Hypertension Maternal Grandfather Throat cancer Brother High cholesterol Maternal Grandmother Hypertension Social History Household Members: Spouse and Children Household Members Other:: Mother Housing: House Do you presently have visiting nurse or other home services: No Unable to assess alcohol history related to: Unknown Patient Tobacco Use Status: Former Tobacco user e-Cigarette/Vaping Use: Never Used Second Hand Smoke Exposure: No service: No Current occupational status: unemployed Current occupational exposures/hazards: No Cognitive needs: No Hearing needs: No Vision needs: No Questionnaire PHQ-9 Over the last 2 weeks, how often have you been bothered by any of the following problems? 1. Little interest or pleasure in doing things: not at all 2. Feeling down, depressed, or hopeless: not at all 3. Trouble falling or staying asleep, or sleeping too much: not at all 4. Feeling tired or having little energy: not at all 5. Poor appetite or overeating: not at all 6. Feeling bad about yourself - or that you are a failure or have let yourself or your family down: not at all 7. Trouble concentrating on things, such as reading the newspaper or watching television: not at all 8. Moving or speaking so slowly that other people could have noticed. Or the opposite - being so fidgety or restless that you have been moving around a lot more than usual: not at all 9. Thoughts that you would be better off or of hurting yourself in some way: not at all Total score: 0 Depression Screening Interpretation: Negative Depression Screening Done: Yes 62830 - PHQ-9 Billing: Yes Source: Developed by Drs. Uvaldo Hardy, Teri Davis, Dewey Garay and colleagues, with an educational perry from [employer]. Thrive Questionnaire Date Thrive assessed: 10/07/24 I am a: Patient What is your living situation today?: I have a steady place to live Within the past 12 months, did the food you bought not last and you didn't have the money to get more?: Never true Within the past 12 months, did you worry whether your food would run out before you got money to buy more?: Never true Do you have trouble paying for medicines?: No Do you have trouble getting transportation to medical appointments?: No Do you have trouble paying your heating and electricity bill?: No Do you have trouble taking care of your child, family member or friend?: No Do you have trouble with day-to-day activities such as bathing, preparing meals, shopping, managing finances, etc.?: No Are you currently unemployed and looking for a job?: No Are you interested in more education?: No Please select the resources that you would like help with: None Currently or been in a relationship where the following occur: No concerns reported THRIVE Score: 0 AUDIT C Alcohol Use Questionnaire (AUDIT-C) 1. How often do you have a drink containing alcohol?: Never 3. How often do you have six or more drinks on one occasion?: Never Total Score: 0 Score Reviewed/Action Taken: Yes NANCY-7 AMB Questionnaire NANCY-7 Date NANCY - 7 assessed: 10/07/24 Feeling nervous, anxious, or on edge: 0 = Not at all Not being able to stop or control worryin = Not at all Worrying too much about different things: 0 = Not at all Trouble relaxin = Not at all Being so restless that it is hard to sit still: 0 = Not at all Becoming easily annoyed or irritable: 0 = Not at all Feeling afraid as if something awful might happen: 0 = Not at all Total NANCY-7 score (0-4 normal; 5-9 mild; 10-14 moderate; 15-21 severe): 0 Source: Developed by Drs. Uvaldo Hardy, Teri Davis, Dewey Garay and colleagues, with an educational perry from [employer]. Review of Systems Const Denies chills, Denies fatigue, Denies fever(s), Denies headache(s) and Denies malaise Eyes Denies blurry vision, Denies change in vision, Denies irritation and Denies itchy eyes ENT Denies dysphagia, Denies dizziness, Denies otalgia, Denies headache(s), Denies nasal congestion, Denies neck pain, Denies odynophagia, Denies sinus pain and Denies sore throat Card Denies chest pain, Denies rapid heart rate, Denies irregular heart rhythm, Denies palpitations and Denies dyspnea Resp Denies chest congestion, Denies cough, Denies dyspnea and Denies wheezing GI Denies abdominal pain, Denies bloating, Denies constipation, Denies dysphagia, Denies heartburn, Denies diarrhea, Denies nausea, Denies odynophagia and Denies vomiting Denies hematuria, Denies urinary frequency, Denies dysuria, Denies urinary incontinence and Reports urinary urgency (mild, occurring in the past 1 to 2 days) Musc Denies back pain, Denies arthralgias, Denies joint swelling, Denies muscle weakness and Denies neck pain Skin/Breast Denies breast pain, Denies breast mass, Denies change in pigmentation, Denies lesions, Denies rash and Denies unusual bruising Neuro Denies dizziness, Denies headache(s) and Denies paresthesias Psych Denies anxiety and Denies depression Endo Denies fatigue and Denies palpitations Guru/Lymph Denies easy bruising Aller/Immun Denies itchy eyes and Denies wheezing Physical exam (Primary Care) Vital Signs: Last Vital Signs Pulse 73 10/07/24 15:23 BP 118/80 10/07/24 15:23 Pulse Ox 96 10/07/24 15:23 Oxygen Delivery Method Room Air 10/07/24 15:23 BMI result Body Mass Index 28.1 Tobacco/Smoking Status: Tobacco use Status Tobacco use date assessed 10/07/24 10/07/24 15:29 Patient Tobacco Use Status Former Tobacco user 10/07/24 15:21 e-Cigarette/Vaping Use Never Used 10/07/24 15:21 PHQ-9: PHQ-9 Score PHQ-9: Total score 0 10/07/24 15:39 Depression Screening Interpretation: Negative Thrive Assessment: Date of Thrive Assessment Date Thrive assessed 10/07/24 10/07/24 15:29 Currently or been in a relationship where the following occur: No concerns reported Const General: no acute distress, alert and awake Orientation/consciousness: patient oriented x3 HENMT Head: Yes normocephalic and Yes atraumatic Ears: external ears normal, TM's normal bilaterally and EAC's normal General nose exam: No nasal discharge present Face and sinus: Yes normal facial exam and Yes sinuses nontender Teeth and gingiva: dentition normal Throat: Yes posterior oropharynx normal and Yes tonsils normal (no TP congestion) Eyes Eyelids: Yes eyelids normal Conjunctivae: conjunctivae normal Pupils: Equal, round and reactive pupils present EOM: EOMs intact bilaterally Neck Neck: Yes no lymphadenopathy and Yes supple Thyroid: Thyroid normal Resp Auscultation: clear to auscultation bilaterally, no rales and no wheezes Cardio Rate: regular rate Rhythm: regular rhythm Heart sounds: no murmurs GI Palpation (GI): Soft to palpation, nontender and No hepatosplenomegaly present Auscultation: normal bowel sounds General: Yes no CVA tenderness Back/Spine/Pelvis Back: no CVA tenderness Thoracic/Lumbar Spine: thoracic and lumbar spine normal to inspection Skin Lesions: no lesions Rashes: no rashes Neuro General: patient oriented x3, moves all extremities, no focal motor deficits and CN's II-XI intact bilaterally Cranial nerves: Yes Equal, round and reactive pupils present Cognition (Neuro): normal cognition Gait exam (Neuro): Normal gait present Extrem General: Yes no clubbing, cyanosis or edema Results AMB Urinalysis, Automated UA Leukoctes 2 Maria Eugenia/uL Last Edit by BRODY Ruggiero on 10/07/24 15:41 UA Nitrite Negative Last Edit by BRODY Ruggiero on 10/07/24 15:41 UA Urobilinogen 0 mg/dL Last Edit by BRODY Ruggiero on 10/07/24 15:41 UA Protein 2 mg/dL Last Edit by Angelita Nugent Darren on 10/07/24 15:41 UA pH 6.0 Last Edit by BRODY Ruggiero on 10/07/24 15:41 UA Blood 2 Geronimo/uL Last Edit by BRODY Ruggiero on 10/07/24 15:41 UA Specific [place]ands 1.025 Last Edit by BRODY Ruggiero on 10/07/24 15:41 UA Ketone Negative Last Edit by BRODY Ruggiero on 12/31/24 15:41 UA Bilirubin 0 mg/dL Last Edit by BRODY Ruggiero on 10/07/24 15:41 UA Glucose 0 mg/dL Last Edit by BRODY Ruggiero on 10/07/24 15:41 Results Reviewed Results Reviewed: Laboratory Last Values Urine pH (Auto) 6.0 10/07/24 15:39 Specific Callands (Auto) 1.025 10/07/24 15:39 Urine Protein (Auto) 2 mg/dL 10/07/24 15:39 Glucose (UA)(Auto) 0 mg/dL 10/07/24 15:39 Urine Ketones (Auto) Negative 10/07/24 15:39 Urine Blood (Auto) 2 Geronimo/uL 10/07/24 15:39 Urine Nitrite (Auto) Negative 10/07/24 15:39 Urine Bilirubin (Auto) 0 mg/dL 10/07/24 15:39 Urine Urobilinogen (Auto) 0 mg/dL 10/07/24 15:39 Leukocyte Esterase (Auto) 2 Maria Eugenia/uL 10/07/24 15:39 Coding Level of Care Code Est Pt Prev Care 40-64y(79772) Diagnoses Annual physical exam Z00.00 Mixed hyperlipidemia E78.2 Chronic respiratory failure, unspecified whether with hypoxia or hypercapnia J96.10 Respiratory failure complication: unspecified whether with hypoxia or hypercapnia Iron deficiency anemia, unspecified iron deficiency anemia type D50.9 Anemia type: iron deficiency Iron deficiency anemia type: unspecified iron deficiency Impaired fasting glucose R73.01 GERD without esophagitis K21.9 Vitamin D deficiency E55.9 Low TSH level R79.89 Urinary urgency R39.15 Anxiety F41.9 Overweight (BMI 25.0-29.9) E66.3 Cervical cancer screening Z12.4 Colon cancer screening Z12.11 Additional Codes PHQ-9 - 87886 - PHQ-9 Billing: Yes ([id number]) Assessment & Plan Assessment & Plan (1) Annual physical exam: Code(s): Z00.00 - Encounter for general adult medical examination without abnormal findings Category: Medical Plan: Check labs PORTIA - labs were previously ordered and are still in her chart She is overdue for her yearly gynecology exam/Pap smear and will be referred for this She is also due for her screening colonoscopy (2) Mixed hyperlipidemia: Code(s): E78.2 - Mixed hyperlipidemia Category: Medical Plan: Patient is advised again that her cholesterol levels back in November 2023 when they were last checked have increased significantly from her previous numbers last year and if her current cholesterol levels have not improved significantly, we will need to consider starting her on cholesterol-lowering medications Reinforced low cholesterol diet Will have her recheck her labs and fasting lipids again in 6 months for follow up (3) Chronic respiratory failure: Comment: Significantly better Code(s): J96.10 - Chronic respiratory failure, unspecified whether with hypoxia or hypercapnia Category: Medical Qualifiers: Respiratory failure complication: unspecified whether with hypoxia or hypercapnia Qualified Code(s): J96.10 - Chronic respiratory failure, unspecified whether with hypoxia or hypercapnia Plan: Patient's breathing has been significantly compromised since she contracted COVID in June 2021, requiring a brief period of intubation and mechanical ventilation at the time She has required oxygen supplementation since then for a period of time, especially with activity or exertion as she would then experience hypoxemia with activity Her breathing has been gradually improving since and she presently no longer needs oxygen but she still has LEARY and easy fatigability She also has trouble sleeping on her back and has had some symptoms suggestive of hypoventilation or a sleep disorder Her home sleep study done a few months ago came back negative for sleep apnea Echocardiogram done in June 2024 revealed normal left ventricular systolic function, with the calculated ejection fraction at 56%, with no obvious valvular pathology seen. There is also no evidence of pulmonary hypertension Continue use of Duoneb nebulization Tx PRN and Budesonide 0.5 mg BID Follow up with pulmonary at [facility] [place] as scheduled (4) Anemia: Code(s): D64.9 - Anemia, unspecified Category: Medical Qualifiers: Anemia type: iron deficiency Iron deficiency anemia type: unspecified iron deficiency Qualified Code(s): D50.9 - Iron deficiency anemia, unspecified Plan: Corrected - continue Ferrous Sulfate 325 mg QD She was still anemic on her labs back in October 2022 but follow up labs in June 2023 and November 2023 revealed normal H/H Will continue to monitor her CBC regularly (5) Impaired fasting glucose: Code(s): R73.01 - Impaired fasting glucose Category: Medical Plan: Patient is reminded that her serum glucose was still elevated back in November 2023 and her HgbA1c was at 5.9% back then Her HgbA1c was at 6.0% previously back in 2020 She has been advised that based on her results, she has borderline diabetes Reinforced diabetic diet; exercise as tolerated Per request, she was referred to a automatic i threading machine feeder to help guide her on her dietary guidelines and recommendations (6) GERD without esophagitis: Code(s): K21.9 - Gastro-esophageal reflux disease without esophagitis Category: Medical Plan: Dietary restrictions reinforced Continue Omeprazole 40 mg QD (7) Vitamin D deficiency: Code(s): E55.9 - Vitamin D deficiency, unspecified Category: Medical Plan: She is advised that her Vitamin D level was still low on her labs done in November 2023 Continue Vitamin D3 2000 units QD (8) Low TSH level: Code(s): R79.89 - Other specified abnormal findings of blood chemistry Category: Medical Plan: Her TSH was normal and free T4 remained normal on her labs done in November 2023 Patient is currently clinically euthyroid Will recheck her TFTs for follow up (9) Urinary urgency: Code(s): R39.15 - Urgency of urination Category: Medical Plan: Her in-office urinalysis done today do not show any convincing findings of the presence of a urinary tract infection Will send her urine sample for culture and sensitivity studies and will treat her accordingly when her results come back (10) Anxiety: Code(s): F41.9 - Anxiety disorder, unspecified Category: Medical Plan: Continue Lorazepam 1 mg QD / HS PRN and Wellbutrin XL 150 mg QD (11) Overweight (BMI 25.0-29.9): Code(s): E66.3 - Overweight Category: Medical Plan: Reinforced diet; exercise and weight loss are unrealistic at this time given patient's physical conditions (12) Cervical cancer screening: Code(s): Z12.4 - Encounter for screening for malignant neoplasm of cervix Category: Medical Plan: Will refer patient to OB-Gynecology to resume her annual gynecology exam and pap smear (13) Colon cancer screening: Code(s): Z12.11 - Encounter for screening for malignant neoplasm of colon Category: Medical Plan: Will refer patient to gastroenterology for her screening colonoscopy Plan Follow up in 6 months Orders: Orders AMB Urinalysis Automated 10/07/24 Z13.9 - Encounter for screening, unspecified Complete Blood Count Auto Diff 6 Months D64.9 - Anemia, unspecified Comprehensive [place]. Panel Fast 6 Months E78.00 - Pure hypercholesterolemia, unspecified Lipid Panel 6 Months E78.00 - Pure hypercholesterolemia, unspecified Hemoglobin A1c 6 Months R73.01 - Impaired fasting glucose Urine Culture 10/07/24 N39.0 - Urinary tract infection, site not specified Referrals DENTAL [employer]AL[employer] PROCESSOR Referral Z12.4 - Encounter for screening for malignant neoplasm of cervix Gastroenterology Referral K21.9 - Gastro-esophageal reflux disease without esophagitis, Z12.11 - Encounter for screening for malignant neoplasm of colon
[2024-10-07 15:23] VITALS: BP 118/80; PULSE 73; O2SAT 96; BMI 28.1
== END 2024-10-07 15:46 | disposition home or self-care (01) ==
LOC: HO.HMCH 15:18
PROVIDERS: PCP Internal Medicine; Visit Provider Internal Medicine
DX: Z13.9 Encounter for screening, unspecified (principal)

== ENCOUNTER 2024-12-04 12:58 | Outpatient (AMB) | payer OTHER, SELFPAY ==
--- NOTE | 2024-12-04 13:05 | A.OFFVIS_ITS ---
Vital Signs 12/04/24 13:06 Height 5 ft 6 in Weight 176 lb 5.917 oz BMI 28.5 BP 130/88 Blood Pressure Location Rt brachial Position Sitting Pulse 74 Pulse Source Pulse Oximeter Pulse Oximetry (%) 100 Oxygen Delivery Method Room Air Intake Visit Reasons: Chronic Respiratory Failure Allergies ketamine Allergy (Intermediate, Verified 12/04/24 13:09) Rash oxycodone [Percocet] Adverse Reaction (Severe, Verified 12/04/24 13:09) vomiting HPI Comments Details: The patient is a 44 year-old woman apparently healthy who apparently developed severe COVID pneumonia back in the end of June. She require ICU level of care intubation. The patient developed significant pneumonia and ARDS. Her culture positive both for Staph aureus and for Aspergillus. The patient was able to be successfully liberated from the ventilator. She has been on the Oxymizer pendant when she gets most other relief. Does require written 3 4 L with activity. We did do a brief walking oximetry in the office. She did desaturated on room air. She did well on 3 L. The patient should continue on 3 L via Oxymizer pendant. Her Oxymizer pendant is old and she needs to get a replacement from her DME company. We will request Oxymizer pendant from the [employer] this time. The patient also needs a nebulizer machine. Will request from the same DME company to make it easier for her. The patient is currently participating in home pulmonary hypertension. Once the patient is discharged from the home program will plan to have her undergo pulmonary function studies and start pulmonary rehab here in the hospital. 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 She is starting to walk a little bit. This is reassuring. The patient has had a good appetite. She has still been very anxious however. She also has been dealing with this with tachycardia. 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 At this point the patient will undergo blood work in addition to a repeat chest x-ray. Will start nebulized therapy with budesonide and also provide saline and peels for chest physical therapy. The patient follow-up in 3-4 weeks with pulmonary function studies. 03/04/2024 the patient is here for a pulmonary follow-up visit. She continues to do fairly well. She does have dyspnea on exertion specially when going up a flight of stairs or an incline. [id number]-xc-htrqipno severity. The patient also has been having some issues with her sleep. Sometimes she can not sleep supine. She has a hard time. She does better on the side. She does wake up tired. Her Stock[place] score is elevated 9/24. Be very reasonable to have her undergo sleep study. She already has cardiovascular risk factors. She is gained some weight. Her fasting blood sugar has been elevated and likely has diabetes if not prediabetes. I will refer the patient to a dietitian to help her with her weight gain that is ultimately affecting her respiratory capacity. She also has some lower extremity edema. 06/05/2024 the patient is here for a pulmonary follow-up visit. Overall she is doing about the same. Still complaining of dyspnea on exertion. Specially when going up a flight of stairs and also an incline. The times that she actually has to stop and sit down she is going multiple flights. Here in the office we did go on some stairs and wash their going upstairs. The patient did have significant elevation heart rate after 1 flight with the heart rate increased to about 122 beats per minute. Pulse ox stable. She was visibly dyspneic. Respiratory figueredo the patient is doing well. She has a rescue inhaler but she has not used it. She also had a sleep study which we personally reviewed. No evidence of any pathological sleep apnea. She tends to have a little bit more episodes when she is laying on her right side down. She is going to try to minimize that. The patient will start exercise regimen with the and hopefully we can get an echocardiogram to assess her cardiac function and rule out any pulmonary hypertension. Patient follow-up in 4-6 months. 12/04/2024 the patient is here for a pulmonary follow-up visit. Overall she is doing well from a respiratory status. She has not had to use her nebulizer often. She is walking more. She is also going up a flight of stairs more regularly, but having dyspnea on exertion, mild to moderate in severity. Although she is not exercising on a regular basis. We did talk about the importance about that. She did undergo an echocardiogram which is reassuring normal EF and no evidence of any diastolic dysfunction or pulmonary hypertension. The patient is working on her weight management. In addition to that she has not had to use a nebulizer which is reassuring. Will plan to follow-up in a year's time with PFTs and chest x-ray. She is complaining of some other constitutional symptoms including dysuria and also is concerned about her degree of anemia since she is still having some shortness of breath with activity. She was prescribed iron but she can not tolerate the iron prescription. She is taking [id number]-kivylcc. 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 Chronic respiratory failure Pneumonia Anxiety Surgical History History of nephrolithiasis H/O breast biopsy History of laparoscopic cholecystectomy Family History Father Diabetes Hypertension Mother Diabetes Hypertension Maternal Grandfather Throat cancer Brother High cholesterol Maternal Grandmother Hypertension Social History Household Members: Spouse and Children Household Members Other:: Mother Housing: House Do you presently have visiting nurse or other home services: No Unable to assess alcohol history related to: Unknown Patient Tobacco Use Status: Former Tobacco user e-Cigarette/Vaping Use: Never Used Second Hand Smoke Exposure: No service: No Current occupational status: unemployed Current occupational exposures/hazards: No Cognitive needs: No Hearing needs: No Vision needs: No Review of Systems Const Denies chills, Reports daytime sleepiness, Denies difficulty sleeping (due to anxiety), Denies fatigue, Denies fever(s), Denies headache(s) and Reports weight gain ENT Denies headache(s), Denies odynophagia, Denies sinus pain and Denies sore throat Card Denies chest pain, Reports palpitations (occasional palpitations) and Reports dyspnea on exertion Resp Denies cough, Reports dyspnea on exertion and Denies wheezing GI Denies abdominal pain, Denies constipation, Denies heartburn, Denies diarrhea, Denies nausea, Denies odynophagia and Denies vomiting Denies difficulty voiding, Denies nocturia and Denies dysuria Neuro Denies headache(s) Psych Reports anxiety and Denies mood swings Endo Denies fatigue and Reports palpitations (occasional palpitations) Aller/Immun Denies wheezing Physical Exam Vital Signs: Last Vital Signs Pulse 74 12/04/24 13:06 BP 130/88 12/04/24 13:06 Pulse Ox 100 12/04/24 13:06 Oxygen Delivery Method Room Air 12/04/24 13:06 BMI result Body Mass Index 28.5 Const General: alert Neck Neck: Yes normal visual inspection, Yes full ROM and Yes no lymphadenopathy Chest Chest palpation & inspection: normal inspection of the chest Resp Effort & Inspection: normal respiratory effort Auscultation: no crackles, no rales and diminished lung sounds Cardio Rate: regular rate Rhythm: regular rhythm Heart sounds: S1 normal heart sound present and S2 normal heart sound present GI Palpation (GI): Soft to palpation and nontender Auscultation: normal bowel sounds Skin General skin exam: rashes and/or lesions noted Extrem General: Yes no clubbing, cyanosis or edema Assessment & Plan Assessment & Plan (1) ILD (interstitial lung disease): Code(s): J84.9 - Interstitial pulmonary disease, unspecified Category: Medical (2) Chronic restrictive lung disease: Code(s): J98.4 - Other disorders of lung Category: Medical (3) Overweight (BMI 25.0-29.9): Code(s): E66.3 - Overweight Category: Medical Plan Xopex as needed for chest tightness continue deep breathing exercises Bloodwork PFTs/CXR in 1 yr follow-up 1 yr Orders: Orders Complete Blood Count Auto Diff Today D50.9 - Iron deficiency anemia, unspecified, R30.0 - Dysuria XR chest 2V 1 Year J98.4 - Other disorders of lung PFT pulmonary function test 1 Year J98.4 - Other disorders of lung IRON PROFILE Today D50.9 - Iron deficiency anemia, unspecified, R30.0 - Dysuria Ferritin Today D50.9 - Iron deficiency anemia, unspecified, R30.0 - Dysuria UA CC w/rflx Micro + Cult Today D50.9 - Iron deficiency anemia, unspecified, R30.0 - Dysuria Medications: Discontinued budesonide Discontinued Reason: Doctor's Order 0.5 mg inhalation BID 30 days 60 mL 6RF Coding Level of Care Code Est Pt Level 4 (40366) Diagnoses ILD (interstitial lung disease) J84.9 Chronic restrictive lung disease J98.4 Overweight (BMI 25.0-29.9) E66.3 Time Spent (min) 16
[2024-12-04 13:06] VITALS: BP 130/88; PULSE 74; O2SAT 100; BMI 28.5
--- OUTSIDE RECORDS SUMMARY | 2024-12-04 15:26 | XMS_ITS | Clinical Summary ---
Author Organization [facility] Address [address] [place] [address] Care Team Providers Care Registry Nurse Name Role Phone Unavailable Primary Care Provider Unavailabl e Surgical History Surgery Date Site/Laterality Comments CHOLECYSTECTOMY 2006 PROCEDURE: HISTORICAL CHOLECYSTECTOMY Medical History Medical History Date Comments Kidney stones DX:Kidney stones Anemia DX:Anemia Family History Medical History Relation Name Comments Diabetes Aunt Hypertension Aunt Diabetes Father Hypertension Father Diabetes Maternal Grandmother Hypertension Maternal Grandmother Diabetes Mother Hypertension Mother Other cancer Mother's side uncle Breast cancer Other Diabetes Sister Hypertension Sister Relation Name Status Comments Aunt Father Maternal Grandmother Mother Mother's side uncle Other Sister Social History Tobacco Use Types Packs/Day Years Used Date Smoking Tobacco: Never Smokeless Tobacco: Never Alcohol Use Standard Drinks/Week Comments No 0 (1 standard drink = 0.6 oz pur e alcohol) Comments Unknown Sex and Gender Information Value Date Recorded Sex Assigned at Not on file Legal Sex Female 6:14 AM EST Gender Identity Not on file Sexual Orientation Not on file Obstetrics History Plan of Treatment Health Maintenance Due Date Last Done Comments Breast Cancer Screening 1979 Hepatitis B Vaccines (1 of 3 - 19+ 3-dose series) 1998 Cervical Cancer Screening: P ap Smear 2000 COVID-19 Vaccine (2023-2 5 season) 2024 Influenza Vaccine (#1) 2024 DTaP,Tdap,and Td Vaccines (2 - Td or Tdap) 03/14/2027 03/14/2017 HIB Vaccines Aged Out No longer eligi ble based on patient's age to complete this topic HPV Vaccines Aged Out No longer eligi ble based on patient's age to complete this topic Hepatitis A Vaccines Aged Out No long er eligible based on patient's age to complete this topic IPV Vaccines Aged Out No longer eligi ble based on patient's age to complete this topic MMR Vaccines Aged Out No longer eligi ble based on patient's age to complete this topic Meningococcal ACWY Vaccine Aged Out N o longer eligible based on patient's age to complete this topic Meningococcal B Vacine Aged Out No lo nger eligible based on patient's age to complete this topic Pneumococcal Vaccine: Pediat rics (0 to 5 Years) and At-Risk Patients (6 to 64 Years) Aged Out No longer eligi ble based on patient's age to complete this topic RSV Immunization Patients Un castro 20 months Aged Out No longer eligible b ased on patient's age to complete this topic Varicella Vaccines Aged Out No longer eligible based on patient's age to complete this topic
== END 2024-12-04 13:22 | disposition home or self-care (01) ==
PROVIDERS: PCP Internal Medicine; Visit Provider Hospitalist
DX: J84.9 Interstitial pulmonary disease, unspecified (principal); J98.4 Other disorders of lung; E66.3 Overweight
CPT/HCPCS: 99214

== ENCOUNTER → 2024-12-04 12:58 | Outpatient (BNVA) | payer OTHER, SELFPAY | PROVIDERS: PCP Internal Medicine; Visit Provider Hospitalist | DX: J84.9 Interstitial pulmonary disease, unspecified (principal); J98.4 Other disorders of lung; E66.3 Overweight | CPT/HCPCS: 99212 ==

== ENCOUNTER 2025-01-02 12:27 | Outpatient (REF) | payer OTHER, SELFPAY ==
[2025-01-02 12:50] LABS: MANUAL DIFF FLAG NO
[2025-01-02 13:00] LABS: Basophils Absolute Auto 0.1 X10*3/uL (0.0-0.2); Basophils Percent Auto 0.6 % (0-2); Eosinophils Absolute Auto 0.5 X10*3/uL (0.0-0.4); Eosinophils Percent Auto 4.7 % (0-4); Hematocrit 33.6 % (37.0-47.0); Hemoglobin 10.2 g/dl (12.0-16.0); Imm Gran Abs Auto 0.04 X10*3/uL (0.00-0.03); Imm Gran Pct Auto 0.4 % (0.0-0.4); Lymphocytes Absolute Auto 2.8 X10*3/uL (1.2-4.9); Lymphocytes Percent Auto 26.1 % (20-40); Mean Corpuscular HGB Conc 30.4 g/dl (31.0-35.0); Mean Corpuscular Hemoglobin 22.2 pg (27.0-33.0); Mean Platelet Volume 10.1 fL (9.4-12.3); Monocytes Absolute Auto 0.7 X10*3/uL (0.1-1.2); Monocytes Percent Auto 6.2 % (2-11); Neutrophils Absolute Auto 6.6 x10*3/uL (2.0-8.3); Platelet Count 321 X10*3/uL (160-400); Red Cell Distribution Width 18.9 % (11.0-16.0); White Blood Count 10.7 X10*3/uL (4.8-10.8)
[2025-01-02 13:30] LABS: Iron 12 mcg/dL (30-160); Percent Iron Saturation 3 % (15-50); Total Iron Binding Capacity 366 mcg/dL (228-428); Unsaturated Iron Binding 354 ug/dL
[2025-01-02 13:42] LABS: Ferritin 7 ng/mL (10-250)
[2025-01-02 14:27] LABS: Appearance Urine Cloudy; Color Urine Yellow; Glucose Urine UA Negative (Negative); Leukocyte Esterase Urine Large (3+) (Negative); Nitrite Urine Negative (Negative); PH 5.5 (5.0-9.0); Specific Gravity - Urine 1.015 (1.005-1.025); UMIC TRIGGER UACC YES; Urine Blood Moderate (2+) (Negative); Urine Ketones Negative (Negative); Urine Protein 300 (3+) mg/dL (Neg-Trace)
[2025-01-02 14:32] LABS: Bacteria Urine 2+ (None Seen); Squamous Epithelial Cell Urine 0-2 /HPF (0-2); UACC Culture Trigger YES; WBC Urine >50 /HPF (0-5)
== END 2025-01-02 12:28 | disposition home or self-care (01) ==
LOC: HO.LAB 12:27
PROVIDERS: PCP Internal Medicine; Visit Provider Hospitalist
DX: D50.9 Iron deficiency anemia, unspecified (principal); R30.0 Dysuria
CPT/HCPCS: 36415; 81001; 82728; 83540; 85025; 87086; 87088; 87186

== ENCOUNTER 2025-01-22 15:40 | Outpatient (REF) | payer OTHER, SELFPAY ==
--- OUTSIDE RECORDS SUMMARY | 2025-01-22 18:08 | XMS_ITS | Clinical Summary ---
Author Organization [facility] Address [address] [place] [address] Care Team Providers Care Unleavened Dough Mixer Name Role Phone Unavailable Primary Care Provider [...] Vaccine (2023-2 5 season) 2024 Influenza Vaccine (Season Ended) 2025 DTaP,Tdap,and Td Vaccines (2 - Td or [...] age to complete this topic Meningococcal B Vaccine Aged Out No l onger eligible based on patient's age to complete [...]
== END 2025-01-22 15:41 | disposition home or self-care (01) ==
LOC: HO.MAMMO 15:40
PROVIDERS: PCP Internal Medicine; Visit Provider Internal Medicine
DX: Z12.31 Encounter for screening mammogram for malignant neoplasm of breast (principal)
CPT/HCPCS: 77063; 77067

== ENCOUNTER → 2025-01-22 15:45 | Outpatient (BNV) | payer OTHER, SELFPAY | PROVIDERS: PCP Internal Medicine; Visit Provider Internal Medicine | DX: Z12.31 Encounter for screening mammogram for malignant neoplasm of breast (principal) | CPT/HCPCS: 77063; 77067 ==

== ENCOUNTER 2025-04-07 11:39 | Outpatient (REF) | payer OTHER, SELFPAY ==
[2025-04-07 11:53] LABS: MANUAL DIFF FLAG NO
[2025-04-07 12:02] LABS: Hematocrit 38.0 % (37.0-47.0); Hemoglobin 11.8 g/dl (12.0-16.0); Imm Gran Abs Auto 0.03 X10*3/uL (0.00-0.03); Imm Gran Pct Auto 0.4 % (0.0-0.4); Lymphocytes Absolute Auto 2.3 X10*3/uL (1.2-4.9); Mean Corpuscular HGB Conc 31.1 g/dl (31.0-35.0); Mean Corpuscular Hemoglobin 24.3 pg (27.0-33.0); Mean Corpuscular Volume 78.4 fL (80.0-98.0); NRBC Abs Auto 0.000 X10*3/uL (0.0-0.012); NRBC Pct Auto 0.0 /100WBC (0.0-0.2); Platelet Count 267 X10*3/uL (160-400); Red Blood Count 4.85 X10*6/uL (4.20-5.50); White Blood Count 8.0 X10*3/uL (4.8-10.8)
[2025-04-07 12:18] LABS: Hemoglobin A1C 144.3002 umol/L; Total Hemoglobin (HGBA1C) 3112.6960 umol/L
[2025-04-07 12:36] LABS: Alanine Aminotransferase 23 U/L (0-31); Albumin Level 3.8 g/dL (3.5-5.0); Alkaline Phosphatase 87 U/L (39-117); Anion Gap 10 (12-20); Aspartate Amino Transferase 31 U/L (5-31); Blood Urea Nitrogen 9 mg/dL (9-16); Calcium 8.5 mg/dL (8.4-10.2); Carbon Dioxide 26 mmol/L (22-29); Chloride 108 mmol/L (96-108); Cholesterol 218 mg/dL (<200); Estimated Glomerular Filt Rate > 60; HDL Cholesterol 44 mg/dL (>40); Potassium 4.1 mmol/L (3.3-5.1); Sodium 140 mmol/L (135-145); Total Protein 7.0 g/dL (6.5-8.0); Triglycerides 201 mg/dL (<150)
--- OUTSIDE RECORDS SUMMARY | 2025-04-07 12:52 | XMS_ITS | Clinical Summary ---
Author Organization [facility] Address [address] [place] [address] Care Team Providers Care Coding Technician Name Role Phone Unavailable Primary Care Provider [...]
[2025-04-07 12:55] LABS: Appearance Urine Turbid; Glucose Urine UA Negative (Negative); PH 6.0 (5.0-9.0); Specific Gravity - Urine 1.015 (1.005-1.025); UMIC TRIGGER UACC YES
[2025-04-07 13:00] LABS: UACC Culture Trigger YES
== END 2025-04-07 11:40 | disposition home or self-care (01) ==
LOC: HO.LAB 11:39
PROVIDERS: PCP Internal Medicine; Visit Provider Internal Medicine
DX: E78.00 Pure hypercholesterolemia, unspecified (principal); E55.9 Vitamin D deficiency, unspecified; R73.01 Impaired fasting glucose; D64.9 Anemia, unspecified; E78.2 Mixed hyperlipidemia; J96.10 Chronic respiratory failure, unspecified whether with hypoxia or hypercapnia; K21.9 Gastro-esophageal reflux disease without esophagitis; R79.89 Other specified abnormal findings of blood chemistry; F41.9 Anxiety disorder, unspecified; E66.3 Overweight
CPT/HCPCS: 36415; 80053; 80061; 81001; 82306; 83036; 84443; 85025; 87086; 87088; 87186; 96127; 99212

== ENCOUNTER 2025-04-07 14:11 | Outpatient (AMB) | payer OTHER, SELFPAY ==
[2025-04-07 14:13] VITALS: BP 122/86; PULSE 79; O2SAT 95; BMI 28.4
--- NOTE | 2025-04-07 14:13 | MHC.PC.OV ---
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 Accompanied by: Self / Same As Patient Allergies ketamine Allergy (Intermediate, Verified 04/07/25 14:44) Rash oxycodone (Percocet) Adverse Reaction (Severe, Verified 04/07/25 14:44) vomiting Medication List - Last Reconciled 04/07/25 by Nile Denny MD acetaminophen 650 mg PO Q6H PRN ferrous sulfate (Feosol) 325 mg PO DAILY ipratropium-albuterol 0.5 mg-3 mg(2.5 mg base)/3 mL 3 mL inhalation Q4-6H PRN 30 days lorazepam 1 mg PO BEDTIME PRN 30 days nebulizers (Compact Compressor Nebulizer) As directed Tobacco use date assessed: 04/07/25 Dental Screening Dental Screen Date: 04/07/25 Did you have a dental visit in the last 12 months?: Yes Did you have a dental problem in the last 6 months where you did not have access to dental care?: No Was dental information given to patient?: Patient has dentist HPI f/u cholesterol HPI Details Patient comes in today for her follow up visit States that she feels okay She denies any headaches or dizziness Denies any chest pains, no shortness of breath No nausea/vomiting, no abdominal pain No change in bowel habits noted She just had her follow up labs done before coming into the office today - results are still not available for review at this time [facility] Medical History Dysuria Mixed hyperlipidemia Vitamin D deficiency Overweight (BMI 25.0-29.9) Chronic restrictive lung disease ILD (interstitial lung disease) GERD without esophagitis 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 Chronic respiratory failure Pneumonia Anxiety Surgical History History of nephrolithiasis H/O breast biopsy History of laparoscopic cholecystectomy Family History Father Diabetes Hypertension Mother Diabetes Hypertension Maternal Grandfather Throat cancer Brother High cholesterol Maternal Grandmother Hypertension Social History Household Members: Spouse and Children Household Members Other:: Mother Housing: House Do you presently have visiting nurse or other home services: No Unable to assess alcohol history related to: Unknown Patient Tobacco Use Status: Former Tobacco user e-Cigarette/Vaping Use: Never Used Second Hand Smoke Exposure: No service: No Current occupational status: unemployed Current occupational exposures/hazards: No Cognitive needs: No Hearing needs: No Vision needs: No Questionnaire PHQ-9 Over the last 2 weeks, how often have you been bothered by any of the following problems? 1. Little interest or pleasure in doing things: not at all 2. Feeling down, depressed, or hopeless: not at all 3. Trouble falling or staying asleep, or sleeping too much: not at all 4. Feeling tired or having little energy: not at all 5. Poor appetite or overeating: not at all 6. Feeling bad about yourself - or that you are a failure or have let yourself or your family down: not at all 7. Trouble concentrating on things, such as reading the newspaper or watching television: not at all 8. Moving or speaking so slowly that other people could have noticed. Or the opposite - being so fidgety or restless that you have been moving around a lot more than usual: not at all 9. Thoughts that you would be better off or of hurting yourself in some way: not at all Total score: 0 Depression Screening Interpretation: Negative Depression Screening Done: Yes 43734 - PHQ-9 Billing: Yes Source: Developed by Drs. Uvaldo Hardy, Teri Davis, Dewey Garay and colleagues, with an educational perry from [employer]. Thrive Questionnaire Date Thrive assessed: 04/07/25 I am a: Patient What is your living situation today?: I have a steady place to live Within the past 12 months, did the food you bought not last and you didn't have the money to get more?: Often true Within the past 12 months, did you worry whether your food would run out before you got money to buy more?: Often true Do you have trouble paying for medicines?: No Do you have trouble getting transportation to medical appointments?: No Do you have trouble paying your heating and electricity bill?: No Do you have trouble taking care of your child, family member or friend?: No Do you have trouble with day-to-day activities such as bathing, preparing meals, shopping, managing finances, etc.?: No Are you currently unemployed and looking for a job?: Yes Are you interested in more education?: Yes Please select the resources that you would like help with: Food Currently or been in a relationship where the following occur: I choose not to answer THRIVE Score: 2 AUDIT C Alcohol Use Questionnaire (AUDIT-C) 1. How often do you have a drink containing alcohol?: Never 3. How often do you have six or more drinks on one occasion?: Never Total Score: 0 Score Reviewed/Action Taken: Yes NANCY-7 AMB Questionnaire NANCY-7 Date NANCY - 7 assessed: 04/07/25 Feeling nervous, anxious, or on edge: 1 = Several days Not being able to stop or control worryin = Several days Worrying too much about different things: 1 = Several days Trouble relaxin = Several days Being so restless that it is hard to sit still: 1 = Several days Becoming easily annoyed or irritable: 0 = Not at all Feeling afraid as if something awful might happen: 0 = Not at all Total NANCY-7 score (0-4 normal; 5-9 mild; 10-14 moderate; 15-21 severe): 5 Source: Developed by Drs. Uvaldo Hardy, Teri Davis, Dewey Garay and colleagues, with an educational perry from [employer]. Review of Systems Const Denies chills, Denies fatigue, Denies fever(s) and Denies headache(s) ENT Denies dysphagia, Denies dizziness, Denies otalgia, Denies headache(s), Denies neck pain, Denies odynophagia and Denies sore throat Card Denies chest pain, Denies irregular heart rhythm, Denies palpitations and Denies dyspnea Resp Denies chest congestion, Denies cough and Denies dyspnea GI Denies abdominal pain, Denies constipation, Denies dysphagia, Denies heartburn, Denies diarrhea, Denies nausea, Denies odynophagia and Denies vomiting Denies difficulty voiding, Denies dysuria and Denies urinary urgency Musc Denies back pain, Denies arthralgias and Denies neck pain Skin/Breast Denies rash Neuro Denies dizziness, Denies headache(s) and Denies paresthesias Psych Denies anxiety and Denies depression Endo Denies fatigue and Denies palpitations Guru/Lymph Denies easy bruising Physical exam (Primary Care) Vital Signs: Last Vital Signs Pulse 79 04/07/25 14:13 BP 122/86 04/07/25 14:13 Pulse Ox 95 04/07/25 14:13 Oxygen Delivery Method Room Air 04/07/25 14:13 BMI result Body Mass Index 28.4 Tobacco/Smoking Status: Tobacco use Status Tobacco use date assessed 04/07/25 04/07/25 14:19 Patient Tobacco Use Status Former Tobacco user 04/07/25 14:19 e-Cigarette/Vaping Use Never Used 04/07/25 14:19 PHQ-9: PHQ-9 Score PHQ-9: Total score 0 04/07/25 14:47 Depression Screening Interpretation: Negative Thrive Assessment: Date of Thrive Assessment Date Thrive assessed 04/07/25 04/07/25 14:19 Currently or been in a relationship where the following occur: I choose not to answer Const General: no acute distress and alert HENMT Ears: TM's normal bilaterally and EAC's normal Throat: Yes posterior oropharynx normal and Yes tonsils normal (no TP congestion) Neck Neck: Yes supple and No lymphadenopathy Thyroid: Thyroid normal Resp Auscultation: clear to auscultation bilaterally, no rales and no wheezes Cardio Rate: regular rate Rhythm: regular rhythm Heart sounds: no murmurs GI Palpation (GI): Soft to palpation and nontender Auscultation: normal bowel sounds General: Yes no CVA tenderness Back/Spine/Pelvis Back: no CVA tenderness Thoracic/Lumbar Spine: No lumbar spinal tenderness Skin Rashes: no rashes Extrem General: Yes no clubbing, cyanosis or edema Coding Level of Care Code Est Pt Level 4 (87122) Diagnoses Mixed hyperlipidemia E78.2 Chronic respiratory failure, unspecified whether with hypoxia or hypercapnia J96.10 Respiratory failure complication: unspecified whether with hypoxia or hypercapnia Iron deficiency anemia, unspecified iron deficiency anemia type D50.9 Anemia type: iron deficiency Iron deficiency anemia type: unspecified iron deficiency Impaired fasting glucose R73.01 GERD without esophagitis K21.9 Vitamin D deficiency E55.9 Low TSH level R79.89 Anxiety F41.9 Overweight (BMI 25.0-29.9) E66.3 Additional Codes PHQ-9 - 94131 - PHQ-9 Billing: Yes ([id number]) Assessment & Plan Assessment & Plan (1) Mixed hyperlipidemia: Code(s): E78.2 - Mixed hyperlipidemia Category: Medical Plan: She had her follow-up labs done just before coming into the office today so her results are not yet available for review at this time Patient is advised again that her cholesterol levels back in November 2023 when they were last checked have increased significantly from her previous numbers last year and if her current cholesterol levels have not improved significantly, we will need to consider starting her on cholesterol-lowering medications Reinforced low cholesterol diet Will have her recheck her labs and fasting lipids again in 3 months for follow up (2) Chronic respiratory failure: Comment: Significantly better Code(s): J96.10 - Chronic respiratory failure, unspecified whether with hypoxia or hypercapnia Category: Medical Qualifiers: Respiratory failure complication: unspecified whether with hypoxia or hypercapnia Qualified Code(s): J96.10 - Chronic respiratory failure, unspecified whether with hypoxia or hypercapnia Plan: Patient's breathing has been significantly compromised since she contracted COVID in June 2021, requiring a brief period of intubation and mechanical ventilation at the time She has required oxygen supplementation since then for a period of time, especially with activity or exertion as she would then experience hypoxemia with activity Her breathing has been gradually improving since and she presently no longer needs oxygen but she still has LEARY and easy fatigability She also has trouble sleeping on her back and has had some symptoms suggestive of hypoventilation or a sleep disorder Her home sleep study done a few months ago came back negative for sleep apnea Echocardiogram done in June 2024 revealed normal left ventricular systolic function, with the calculated ejection fraction at 56%, with no obvious valvular pathology seen. There is also no evidence of pulmonary hypertension Continue use of Duoneb nebulization Tx PRN and Budesonide 0.5 mg BID Follow up with pulmonary at [facility] [place] as scheduled (3) Anemia: Code(s): D64.9 - Anemia, unspecified Category: Medical Qualifiers: Anemia type: iron deficiency Iron deficiency anemia type: unspecified iron deficiency Qualified Code(s): D50.9 - Iron deficiency anemia, unspecified Plan: Patient is supposed to be on Ferrous Sulfate 325 mg QD but states that she stopped taking this a while back due to severe constipation while on the Rx She was still anemic on her labs back in October 2022 but follow up labs in June 2023 and November 2023 revealed normal H/H Will continue to monitor her CBC regularly Will refer her to hematology for consideration for IV iron infusion (4) Impaired fasting glucose: Code(s): R73.01 - Impaired fasting glucose Category: Medical Plan: Patient is reminded that her serum glucose was still elevated back in November 2023 and her HgbA1c was at 5.9% back then Her HgbA1c was at 6.0% previously back in 2020 She has been advised that based on her results, she has borderline diabetes Reinforced diabetic diet; exercise as tolerated Per request, she was referred to a healthcare science specialist to help guide her on her dietary guidelines and recommendations (5) GERD without esophagitis: Code(s): K21.9 - Gastro-esophageal reflux disease without esophagitis Category: Medical Plan: Dietary restrictions reinforced Continue Omeprazole 40 mg QD (6) Vitamin D deficiency: Code(s): E55.9 - Vitamin D deficiency, unspecified Category: Medical Plan: She is advised that her Vitamin D level was still low on her labs done in November 2023 Continue Vitamin D3 2000 units QD (7) Low TSH level: Code(s): R79.89 - Other specified abnormal findings of blood chemistry Category: Medical Plan: Her TSH was normal and free T4 remained normal on her labs done in November 2023 Patient is currently clinically euthyroid Will recheck her TFTs for follow up in 3 months (8) Anxiety: Code(s): F41.9 - Anxiety disorder, unspecified Category: Medical Plan: Continue Lorazepam 1 mg QD / HS PRN and Wellbutrin XL 150 mg QD (9) Overweight (BMI 25.0-29.9): Code(s): E66.3 - Overweight Category: Medical Plan: Reinforced diet; exercise and weight loss are unrealistic at this time given patient's physical conditions Plan Follow up in 3 months Orders: Orders Complete Blood Count Auto Diff 3 Months D64.9 - Anemia, unspecified Vitamin D 25-OH Total 3 Months E55.9 - Vitamin D deficiency, unspecified Hemoglobin A1c 3 Months E11.9 - Type 2 diabetes mellitus without complications Comprehensive [place]. Panel Fast 3 Months E78.00 - Pure hypercholesterolemia, unspecified Lipid Panel 3 Months E78.00 - Pure hypercholesterolemia, unspecified Microalbumin, Random (w Creat) 3 Months E11.9 - Type 2 diabetes mellitus without complications TSH reflex Free T4 3 Months E78.00 - Pure hypercholesterolemia, unspecified UA CC w/rflx Micro + Cult 3 Months R30.0 - Dysuria Vitamin B12 and Folate 3 Months E53.8 - Deficiency of other specified B group vitamins Referrals Hematology & Oncology Referral D50.9 - Iron deficiency anemia, unspecified
== END 2025-04-07 14:49 | disposition home or self-care (01) ==
LOC: HO.HMCH 14:12
PROVIDERS: PCP Internal Medicine; Visit Provider Internal Medicine
DX: E78.2 Mixed hyperlipidemia (principal); J96.10 Chronic respiratory failure, unspecified whether with hypoxia or hypercapnia; D50.9 Iron deficiency anemia, unspecified; R73.01 Impaired fasting glucose; K21.9 Gastro-esophageal reflux disease without esophagitis; E55.9 Vitamin D deficiency, unspecified; R79.89 Other specified abnormal findings of blood chemistry; F41.9 Anxiety disorder, unspecified; E66.3 Overweight

== ENCOUNTER → 2025-05-08 13:04 | Outpatient (BNV) | payer OTHER, SELFPAY | PROVIDERS: PCP Internal Medicine; Referring Provider Internal Medicine; Visit Provider Internal Medicine | DX: D50.0 Iron deficiency anemia secondary to blood loss (chronic) (principal) | CPT/HCPCS: 99204 ==

== ENCOUNTER 2025-07-13 10:03 | Outpatient (AMB) | payer OTHER, SELFPAY ==
[2025-07-13 10:08] VITALS: BP 118/76; PULSE 88; O2SAT 95; BMI 29.4
--- NOTE | 2025-07-13 10:08 | A.OFFPC_ITS ---
Vital Signs 07/13/25 10:08 Height 5 ft 5 in Weight 176 lb 8 oz BMI 29.4 BP 118/76 Blood Pressure Location Lt brachial Position Sitting Pulse 88 Pulse Source Pulse Oximeter Pulse Oximetry (%) 95 Oxygen Delivery Method Room Air Intake Visit Reasons: 3mth f/u Molding Technician Required: No Accompanied by: Self / Same As Patient Allergies ketamine Allergy (Intermediate, Verified 07/13/25 10:17) Rash oxycodone (Percocet) Adverse Reaction (Severe, Verified 07/13/25 10:17) vomiting Medication List - Last Reconciled 07/13/25 by Nile Denny MD acetaminophen 650 mg PO Q6H PRN ferrous sulfate (Feosol) 325 mg PO DAILY ipratropium-albuterol 0.5 mg-3 mg(2.5 mg base)/3 mL 3 mL inhalation Q4-6H PRN 30 days lorazepam 1 mg PO BEDTIME PRN 30 days nebulizers (Compact Compressor Nebulizer) As directed Tobacco use date assessed: 07/13/25 Dental Screening Dental Screen Date: 07/13/25 Did you have a dental visit in the last 12 months?: Yes Did you have a dental problem in the last 6 months where you did not have access to dental care?: No Was dental information given to patient?: Patient has dentist HPI 3mth f/u HPI Details Patient comes in today for her follow up visit States that she feels okay She denies any headaches or dizziness Denies any chest pains, no shortness of breath No nausea/vomiting, no abdominal pain No change in bowel habits noted She did not get her follow up labs done prior to coming in for her appointment but states that she had labs done just before her last visit a few months ago [facility] Medical History (Updated 07/13/25 @ 10:55 by Nile Denny MD) Diabetes mellitus Dysuria Mixed hyperlipidemia Vitamin D deficiency Overweight (BMI 25.0-29.9) Chronic restrictive lung disease ILD (interstitial lung disease) GERD without esophagitis 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 Chronic respiratory failure Pneumonia Anxiety Surgical History History of nephrolithiasis H/O breast biopsy History of laparoscopic cholecystectomy Family History Father Diabetes Hypertension Mother Diabetes Hypertension Maternal Grandfather Throat cancer Brother High cholesterol Maternal Grandmother Hypertension Social History Household Members: Spouse and Children Household Members Other:: Mother Housing: House Do you presently have visiting nurse or other home services: No Patient Tobacco Use Status: Former Tobacco user e-Cigarette/Vaping Use: Never Used Second Hand Smoke Exposure: No service: No Current occupational status: unemployed Current occupational exposures/hazards: No Cognitive needs: No Hearing needs: No Vision needs: No Questionnaire PHQ-9 Over the last 2 weeks, how often have you been bothered by any of the following problems? Depression Screening Interpretation: Negative Depression Screening Done: Yes Source: Developed by Drs. Uvaldo Hardy, Teri Davis, Dewey Garay and colleagues, with an educational perry from [employer]. Thrive Questionnaire Date Thrive assessed: 04/07/25 I am a: Patient What is your living situation today?: I have a steady place to live Within the past 12 months, did the food you bought not last and you didn't have the money to get more?: Often true Within the past 12 months, did you worry whether your food would run out before you got money to buy more?: Often true Do you have trouble paying for medicines?: No Do you have trouble getting transportation to medical appointments?: No Do you have trouble paying your heating and electricity bill?: No Do you have trouble taking care of your child, family member or friend?: No Do you have trouble with day-to-day activities such as bathing, preparing meals, shopping, managing finances, etc.?: No Are you currently unemployed and looking for a job?: Yes Are you interested in more education?: Yes Please select the resources that you would like help with: Food Currently or been in a relationship where the following occur: I choose not to answer THRIVE Score: 2 AUDIT C Alcohol Use Questionnaire (AUDIT-C) 1. How often do you have a drink containing alcohol?: Never 3. How often do you have six or more drinks on one occasion?: Never Total Score: 0 Score Reviewed/Action Taken: Yes NANCY-7 AMB Questionnaire NANCY-7 Date NANCY - 7 assessed: 04/07/25 Source: Developed by Drs. Uvaldo Hardy, Teri Davis, Dewey Garay and colleagues, with an educational perry from [employer]. Review of Systems Const Denies chills, Denies fatigue, Denies fever(s) and Denies headache(s) ENT Denies dysphagia, Denies dizziness, Denies otalgia, Denies headache(s), Denies neck pain, Denies odynophagia and Denies sore throat Card Denies chest pain, Denies irregular heart rhythm, Denies palpitations and Denies dyspnea Resp Denies chest congestion, Denies cough and Denies dyspnea GI Denies abdominal pain, Denies constipation, Denies dysphagia, Denies heartburn, Denies diarrhea, Denies nausea, Denies odynophagia and Denies vomiting Denies difficulty voiding, Denies dysuria and Denies urinary urgency Musc Denies back pain, Denies arthralgias and Denies neck pain Skin/Breast Denies rash Neuro Denies dizziness, Denies headache(s) and Denies paresthesias Psych Denies anxiety and Denies depression Endo Denies fatigue and Denies palpitations Guru/Lymph Denies easy bruising Physical exam (Primary Care) Vital Signs: Last Vital Signs Pulse 88 07/13/25 10:08 BP 118/76 07/13/25 10:08 Pulse Ox 95 07/13/25 10:08 Oxygen Delivery Method Room Air 07/13/25 10:08 BMI result Body Mass Index 29.4 Tobacco/Smoking Status: Tobacco use Status Tobacco use date assessed 07/13/25 07/13/25 10:09 Patient Tobacco Use Status Former Tobacco user 07/13/25 10:09 e-Cigarette/Vaping Use Never Used 07/13/25 10:09 Depression Screening Interpretation: Negative Thrive Assessment: Date of Thrive Assessment Date Thrive assessed 04/07/25 07/13/25 10:09 Currently or been in a relationship where the following occur: I choose not to answer Const General: no acute distress and alert HENMT Ears: TM's normal bilaterally and EAC's normal Throat: Yes posterior oropharynx normal and Yes tonsils normal (no TP congestion) Neck Neck: Yes supple and No lymphadenopathy Thyroid: Thyroid normal Resp Auscultation: clear to auscultation bilaterally, no rales and no wheezes Cardio Rate: regular rate Rhythm: regular rhythm Heart sounds: no murmurs GI Palpation (GI): Soft to palpation and nontender Auscultation: normal bowel sounds General: Yes no CVA tenderness Back/Spine/Pelvis Back: no CVA tenderness Thoracic/Lumbar Spine: No lumbar spinal tenderness Skin Rashes: no rashes Extrem General: Yes no clubbing, cyanosis or edema Results AMB Hemoglobin A1c AMB Hemoglobin A1c 6.6 % Last Edit by BRODY Ruggiero on 07/13/25 10 :36 Results Reviewed Results Reviewed: Laboratory Tests 01/02/25 04/07/25 04/07/25 12:49 11:48 11:51 WBC 8.0 Hgb 11.8 L Hct 38.0 Plt Count 267 Sodium 140 Potassium 4.1 Creatinine 0.73 Estimated GFR > 60 Fasting Glucose 142 H Hemoglobin A1c % 6.4 H Calcium 8.5 Iron 12 L TIBC 366 % Saturation 3 L Ferritin 7 L AST 31 ALT 23 Triglycerides 201 H Cholesterol 218 H LDL Cholesterol, Calc 134 H HDL Cholesterol 44 25-OH Vitamin D Total 20.5 L TSH 1.41 Urine pH 6.0 Ur Specific [place] 1.015 Urine Protein 300 (3+) H Urine Glucose (UA) Negative Urine Blood Small (1+) H Urine Nitrite Negative Ur Leukocyte Esterase Large (3+) H Coding Level of Care Code Est Pt Level 4 (61145) Complex EM visit Add On G2211 Diagnoses Mixed hyperlipidemia E78.2 Type 2 diabetes mellitus without complication, without long-term current use of insulin E11.9 Diabetes mellitus type: type 2 Diabetes mellitus intermediate project manager insulin use: without intermediate project manager use Diabetes mellitus complication status: without complication Chronic respiratory failure, unspecified whether with hypoxia or hypercapnia J96.10 Respiratory failure complication: unspecified whether with hypoxia or hypercapnia Iron deficiency anemia, unspecified iron deficiency anemia type D50.9 Anemia type: iron deficiency Iron deficiency anemia type: unspecified iron deficiency GERD without esophagitis K21.9 Vitamin D deficiency E55.9 Low TSH level R79.89 Anxiety F41.9 Overweight (BMI 25.0-29.9) E66.3 Assessment & Plan Assessment & Plan (1) Mixed hyperlipidemia: Code(s): E78.2 - Mixed hyperlipidemia Category: Medical Plan: She did not get her follow up labs done before coming in for her appointment today but recalls that she had her labs done just before her last appointment a few months ago, which we reviewed and discussed with patient today as we do not have any more recent labs to go over Patient is advised again that her cholesterol levels done a few months ago were still elevated and were even higher that her previous numbers were back in November 2023 - total cholesterol is now at 218 mg/dl and LDL cholesterol at 134 mg/dl Reinforced low cholesterol diet As she now has diabetes, will also go ahead and start her on statin Rx, per current treatment guidelines - will start her on Atorvastatin 10 mg QD Will have her recheck her labs and fasting lipids again in 3 months for follow up - will just have patient use her current orders (updated) for her next lab draw (2) Diabetes mellitus: Code(s): E11.9 - Type 2 diabetes mellitus without complications Category: Medical Qualifiers: Diabetes mellitus type: type 2 Diabetes mellitus halfway insulin use: without intermediate project manager use Diabetes mellitus complication status: without complication Qualified Code(s): E11.9 - Type 2 diabetes mellitus without complications Plan: Patient's in-office HgbA1c today is at 6.6% - she is advised that based on her HgbA1c today, she is now classified as a DIABETIC (she does have a strong family Hx of diabetes) Her HgbA1c back in April 2025 went up to 6.4% and FBS was also up at 142 mg/dl - HgbA1c was previously at 5.9% back in November 2023 and at 6.0% back in 2020 Reinforced diabetic diet; exercise as tolerated Per request, she was previously referred to a 411 directory assistance operator to help guide her on her dietary guidelines and recommendations - will redo referral as it does not look like she was seen yet Will also go ahead and start her today on Metformin ER 500 mg Q PM Will have her recheck her FBS and HgbA1c in 3 months for follow up (3) Chronic respiratory failure: Comment: Significantly better Code(s): J96.10 - Chronic respiratory failure, unspecified whether with hypoxia or hypercapnia Category: Medical Qualifiers: Respiratory failure complication: unspecified whether with hypoxia or hypercapnia Qualified Code(s): J96.10 - Chronic respiratory failure, unspecified whether with hypoxia or hypercapnia Plan: Patient's breathing has been significantly compromised since she contracted COVID in June 2021, requiring a brief period of intubation and mechanical ventilation at the time She has required oxygen supplementation since then for a period of time, especially with activity or exertion as she would then experience hypoxemia with activity Her breathing has been gradually improving since and she presently no longer needs oxygen but she still has LEARY and easy fatigability She also has trouble sleeping on her back and has had some symptoms suggestive of hypoventilation or a sleep disorder Her home sleep study done a few months ago came back negative for sleep apnea Echocardiogram done in June 2024 revealed normal left ventricular systolic function, with the calculated ejection fraction at 56%, with no obvious valvular pathology seen. There is also no evidence of pulmonary hypertension Continue use of Duoneb nebulization Tx PRN and Budesonide 0.5 mg BID Follow up with [facility] as scheduled (4) Anemia: Code(s): D64.9 - Anemia, unspecified Category: Medical Qualifiers: Anemia type: iron deficiency Iron deficiency anemia type: unspecified iron deficiency Qualified Code(s): D50.9 - Iron deficiency anemia, unspecified Plan: Patient is supposed to be on Ferrous Sulfate 325 mg QD but states that she stopped taking this a while back due to severe constipation while on the Rx She was still anemic on her labs back in October 2022 but follow up labs in June 2023 and November 2023 revealed normal H/H Her Hgb dipped slightly to 11.8 on her labs done in April 2025; Hct stayed normal Will continue to monitor her CBC regularly She was referred previously to hematology for consideration for IV iron infusion but was advised when she was seen in May 2025 that she does not need iron infusion at this time Follow up with hematology as scheduled (5) GERD without esophagitis: Code(s): K21.9 - Gastro-esophageal reflux disease without esophagitis Category: Medical Plan: Dietary restrictions reinforced Continue Omeprazole 40 mg QD (6) Vitamin D deficiency: Code(s): E55.9 - Vitamin D deficiency, unspecified Category: Medical Plan: She is advised that her Vitamin D level was still low on her labs done in April 2025 Continue Vitamin D3 2000 units QD (7) Low TSH level: Code(s): R79.89 - Other specified abnormal findings of blood chemistry Category: Medical Plan: Her TSH was normal and free T4 remained normal on her labs done in April 2025 Patient is currently clinically euthyroid Will recheck her TFTs for follow up in 3 months (8) Anxiety: Code(s): F41.9 - Anxiety disorder, unspecified Category: Medical Plan: Continue Lorazepam 1 mg QD / HS PRN and Wellbutrin XL 150 mg QD (9) Overweight (BMI 25.0-29.9): Code(s): E66.3 - Overweight Category: Medical Plan: Reinforced diet; exercise and weight loss are unrealistic at this time given patient's physical conditions Plan Follow up in 3 months Orders: Orders AMB Hemoglobin A1c Today Z13.9 - Encounter for screening, unspecified Referrals Nutrition/Dietitian Referral E11.9 - Type 2 diabetes mellitus without complications, E78.2 - Mixed hyperlipidemia Medications: New metformin ER (Glucophage XR) 500 mg PO QPM 30 tabs 3RF 30 days atorvastatin (Lipitor) 10 mg PO QPM 30 tabs 3RF 30 days
--- OUTSIDE RECORDS SUMMARY | 2025-07-13 11:41 | XMS_ITS | Clinical Summary ---
Author Organization [facility] Address [address] [place] [id number] Phone Care Team Providers Care Aircraft Time Clerk Name Role Phone Nile Denny MD Primary Care Provider [phone] Nile Denny MD Unavailable [phone] Allergies Active Allergy Reactions Criticality Noted Date Comments Ketamine 10/05/2021 Oxycodone-Acetaminophen Dizziness 10/01/2021 Oxycodone-Acetaminophen 02/01/2022 Medications budesonide (PULMICORT) 0.5 mg/2 mL nebulizer solution Take 0.5 mg by nebulization 2 (two) times a day. Active mometasone 200 mcg/actuation HFAA Inhale 2 puffs into the lungs 2 (two) times a day. Active omeprazole (PRILOSEC) 40 MG capsule Take 40 mg by mouth daily. Active propranoloL (INDERAL) 20 MG immediate release tablet Take 20 mg by mouth 2 (two) times a day. Active sucralfate (CARAFATE) 1 gram tablet Take 1 g by mouth 3 (three) times a day. Active ondansetron (ZOFRAN-ODT) 4 MG disintegrating tablet Take 1 tablet (4 mg total) by mouth every 8 (eight) hours as needed for nausea. 15 tablet 02/20/20 Active Active Problems Problem Noted Date Diagnosed Date COVID 02/01/2022 Social History Tobacco Use Types Packs/Day Years Used Date Smoking Tobacco: Never Smokeless Tobacco: Never Alcohol Use Standard Drinks/Week Comments Never 0 (1 standard drink = 0.6 oz pur e alcohol) Education Answer Date Recorded Are you interested in more education? Not on anna e 02/03/2023 Are you concerned about learning? Not on file 02/03/2023 No 02/03/2023 No 02/03/2023 Digital Access Answer Date Recorded No 03/06/2023 No 03/06/2023 Reliable internet access at home? Not on file 03/06/2023 Device with a working camera? Not on file Comments No Sex and Gender Information Value Date Recorded Sex Assigned at Female 02/01/2022 2:51 PM EDT Legal Sex Female 4:17 PM EST Gender Identity Female 02/01/2022 2:51 PM EDT Sexual Orientation Not on file Last Filed Vital Signs Vital Sign Reading Time Taken Comments Blood Pressure 117/82 02/19/2022 7:48 PM EDT Pulse 103 02/19/2022 7:48 PM EDT Temperature 36 C (96.8 F) 02/19/2022 7:48 PM EDT Respiratory Rate 18 02/19/2022 7:48 PM EDT Oxygen Saturation 97% 02/19/2022 7:48 PM EDT Inhaled Oxygen Concentration - - Weight 63.5 kg (140 lb) 02/19/2022 7:48 PM EDT Height 165.1 cm (5' 5 ) 02/19/2022 7:48 PM EDT Body Mass Index 23.3 02/19/2022 7:48 PM EDT Plan of Treatment Health Maintenance Due Date Last Done Comments Adult Td,Tdap Booster 1979 LIPID PANEL 1979 DEPRESSION SCREENING 1991 HEPATITIS C SCREENING 1997 HIV ONE-TIME SCREENING (18-6 5 YEARS) 1997 PAP SMEAR 2000 MAMMOGRAM 2019 COLOGUARD 2024 COLONOSCOPY 2024 COLORECTAL CANCER SCREENING 2024 FIT TEST 2024 FOBT 2024 SIGMOIDOSCOPY 2024 VIRTUAL COLONOSCOPY 2024 INFLUENZA VACCINE (#1) 2025 COVID-19 VACCINE (2024-2 6 season) 2025 SMOKING STATUS SCREENING (On ce After 26 Yrs) Completed 02/19/2022 HEPATITIS A VACCINES Aged Out No long er eligible based on patient's age to complete this topic HIB VACCINES Aged Out No longer eligi ble based on patient's age to complete this topic MENINGOCOCCAL VACCINES (ACWY) Aged Out No longer eligible based on patient's age to complete this topic MENINGOCOCCAL VACCINES (B) Aged Out N o longer eligible based on patient's age to complete this topic PNEUMOCOCCAL VACCINES (0-49 years) Aged Out No longer eligible based on patient's age to complete this topic Medical Devices Not on file Insurance [employer] [address] [employer] Care Teams Aircraft Time Clerk Relationship Specialty Start Date End Date Nile Denny MD [address] [place] [address] Dr Lorenzo [place] PCP - General Internal Medicine 02/01/22 Nile Denny MD [address] [place] [address] Dr Lorenzo MA Internal Medicine 02/01/22 Additional Source Comments The information contained in this document represents components of the legal health record. It is not the complete legal health record.[facility]
--- OUTSIDE RECORDS SUMMARY | 2025-07-13 11:41 | XMS_ITS | Encounter Summary ---
Author Organization [facility] Address [address] [place] [id number] Phone Care Team Providers Care Doctor Of Optometry Name Role Phone Nile Denny MD Primary Care Provider [phone] Nile Denny MD Primary Care Provider [phone] Nile Denny MD Unavailable [phone] Encounter Details Date Type Department Care Team (Late st Contact Info) Description 10/01/2021 Procedure Pass [facility], Ct Scan - [facility] [address] [place], [place] [id number] Social History Tobacco Use Types Packs/Day Years Used Date Smoking Tobacco: Never Smokeless Tobacco: Never Alcohol Use Standard Drinks/Week Comments Never 0 (1 standard drink = 0.6 oz pur e alcohol) Comments No Sex and Gender Information Value Date Recorded Sex Assigned at Female 02/01/2022 2:51 PM EDT Legal Sex Female 4:17 PM EST Gender Identity Female 02/01/2022 2:51 PM EDT Sexual Orientation Not on file documented as of this encounter Functional Status * Calculated C-SSRS Risk Score (Lifetime/Recent) Answer Date of Assessment Author No Risk Indicated 10/01/2021 7:48 PM Jayjay Christian RN * [place] Suicide Severity Rating Scale (Screener/Recent Self-Report) Question Answer Date of Assessment Author 1. Wish to be (Past 1 Month) No 021 7:48 PM EST Jayjay Sanchez RN 2. Non-Specific Active Suici viridiana Thoughts (Past 1 Month) No 10/01/2021 7:48 PM EST Jayjay Sanchez RN 6. Suicidal Behavior (Lifetime) No 7:48 PM EST Jayjay Sanchez RN documented as of this encounter Plan of Treatment Not on file documented as of this encounter Visit Diagnoses Not on filedocumented in this encounter Additional Health Concerns Infection Onset Date Last Indicated Resolved Time CoV-Risk 10/01/2021 10/01/2021 10/11/2021 1:22 AM EST documented as of this encounter Care Teams Doctor Of Optometry Relationship Specialty Start Date End Date Nile Denny MD [address] [place] [address] [place] [id number] PCP - General Internal Medicine 10/01/21 01/31/22 Nile Denny MD [address] [place] [address] [place] [id number] PCP - General Internal Medicine 02/01/22 Nile Denny MD [address] [place] [address] [place] [id number] Internal Medicine 02/01/22 documented as of this encounter Additional Source Comments The information contained in this document represents components of the legal health record. It is not the complete legal health record.[facility]
--- OUTSIDE RECORDS SUMMARY | 2025-07-13 11:41 | XMS_ITS | Encounter Summary ---
Author Organization [facility] Address [address] [place] [address] Phone Care Team Providers Care Skin Lap Bonder Name Role Phone Nile Denny MD Primary Care Provider [phone] Nile Denny MD Unavailable [phone] Encounter Details Date Type Department Care Team (Late st Contact Info) Description 02/01/2022 Procedure Pass [facility], Ct Scan - [facility] [address] [place] [address] Social History Tobacco Use Types Packs/Day Years Used Date Smoking Tobacco: Never Assessed Comments No Sex and Gender Information Value Date Recorded Sex Assigned at Female 02/01/2022 2:51 PM EDT Legal Sex Female 4:17 PM EST Gender Identity Female 02/01/2022 2:51 PM EDT Sexual Orientation Not on file documented as of this encounter Functional Status * Calculated C-SSRS Risk Score (Lifetime/Recent) Answer Date of Assessment Author No Risk Indicated 02/01/2022 2:50 PM EDT Elzbieta Pope CNP * [place] Suicide Severity Rating Scale (Screener/Recent Self-Report) Question Answer Date of Assessment Author 1. Wish to be (Past 1 Month) No 02/01/2022 2:50 PM EDT Elzbieta Pope CNP 2. Non-Specific Active Suicidal Thoughts (Past 1 Month) No 02/01/2022 2:50 PM EDT Elzbieta Pope CNP 6. Suicidal Behavior (Lifetime) No 02/01/2022 2:50 PM EDT Elzbieta Pope, FIELD CONTACT PERSON documented as of this encounter Plan of Treatment Not on file documented as of this encounter Visit Diagnoses Not on filedocumented in this encounter Care Teams Skin Lap Bonder Relationship Specialty Start Date End Date Nile Denny MD [address] [place] [address] [place] [address] PCP - General Internal Medicine 02/01/22 Nile Denny MD [address] [place] [address] [place] [address] Internal Medicine 02/01/22 documented as of this encounter Additional Source Comments The information contained in this document represents components of the legal health record. It is not the complete legal health record.[facility]
--- OUTSIDE RECORDS SUMMARY | 2025-07-13 11:41 | XMS_ITS | Clinical Summary ---
Author Organization [facility] Address [address] [place] [address] Care Team Providers Care Greaser Operator Name Role Phone Unavailable Primary Care Provider [...] Cervical Cancer Screening: P ap Smear 2000 Depression Screening 10/08/2024 COVID-19 Vaccine ( - 2023-2 5 season) 2025 Influenza Vaccine (#1) 2025 DTaP,Tdap,and Td Vaccines (2 - Td or Tdap) 03/14/2027 03/14/2017 RSV Immunization Adult Patie nts (1 - 1-dose 75+ series) 2054 HIB Vaccines Aged Out No longer eligi [...] 5 Years) and At-Risk Patients (6 to 49 Years) Aged Out No longer eligi ble based on patient's age to complete this topic RSV Immunization Patients Un castro 20 months Aged Out No longer eligible b ased on patient's age to complete this topic Varicella Vaccines Aged Out No longer eligible based on patient's age to complete this topic
== END 2025-07-13 10:54 | disposition home or self-care (01) ==
PROVIDERS: PCP Internal Medicine; Visit Provider Internal Medicine
DX: E78.2 Mixed hyperlipidemia (principal); E11.9 Type 2 diabetes mellitus without complications; J96.10 Chronic respiratory failure, unspecified whether with hypoxia or hypercapnia; D50.9 Iron deficiency anemia, unspecified; K21.9 Gastro-esophageal reflux disease without esophagitis; E55.9 Vitamin D deficiency, unspecified; R79.89 Other specified abnormal findings of blood chemistry; F41.9 Anxiety disorder, unspecified; E66.3 Overweight; Z13.9 Encounter for screening, unspecified

== ENCOUNTER → 2025-07-13 10:03 | Outpatient (BNVA) | payer OTHER, SELFPAY | PROVIDERS: PCP Internal Medicine; Visit Provider Internal Medicine | DX: E78.2 Mixed hyperlipidemia (principal); E11.9 Type 2 diabetes mellitus without complications; J96.10 Chronic respiratory failure, unspecified whether with hypoxia or hypercapnia; D50.9 Iron deficiency anemia, unspecified; K21.9 Gastro-esophageal reflux disease without esophagitis; E55.9 Vitamin D deficiency, unspecified; R79.89 Other specified abnormal findings of blood chemistry; F41.9 Anxiety disorder, unspecified; E66.3 Overweight; Z68.29 Body mass index [BMI] 29.0-29.9, adult | CPT/HCPCS: 83036; 99212 ==